=== PATIENT | female | born 1935 | race Caucasian/White ===

== ENCOUNTER → 2017-09-22 09:51 | Outpatient (CLI) | payer MEDICARE, OTHER, SELFPAY ==
--- NOTE | 2017-09-22 09:55 | BI_ITS ---
MAMMOGRAPHY - UNILATERAL DIAGNOSTIC: RIGHT BREAST REASON FOR EXAM: Female, 81 years old. Prior left mastectomy and radiation therapy. Prior right excisional breast biopsy. PERTINENT HISTORY: Personal history of breast cancer. TECHNIQUE: Digital unilateral breast jm (3D mammographic acquisition) in the CC and MLO projections. 2-D mediolateral oblique (MLO) and craniocaudad (CC) views of both breasts were obtained. CAD: Full Field Digital Mammography with Computer Added Detection was performed. COMPARISON: Comparison is made with prior study dated July 23, 2016 and December 27, 2014. FINDINGS: Breast Composition: The breasts are heterogeneously dense, which may obscure small masses. There are no dominant masses or suspicious calcifications. Persistent architectural distortion is seen in the superior retroareolar region of the right breast. This most likely represents an area of prior biopsy. No other significant abnormalities are identified. There has been no significant change since the prior study. BI/UNILAT RT SCRN W/CAD IMPRESSION: Stable unilateral diagnostic mammogram. One year follow-up mammogram recommended. (A) ASSESSMENT CATEGORY: BIRADS Category 2: Benign. A letter regarding these results will be sent to the patient by the facility within 30 days. Approximately 10% of breast cancers are not detected by mammography. A normal mammogram should not delay biopsy of a clinically suspicious abnormality. Electronically Signed: Shai Gonzalez MD at 10:52 EDT Tel [phone], Service support ,
== END ==
PROVIDERS: Family Provider Internal Medicine; PCP Internal Medicine; Visit Provider Internal Medicine Hematology & Oncology
DX: Z12.31 Encounter for screening mammogram for malignant neoplasm of breast (principal); Z85.3 Personal history of malignant neoplasm of breast
CPT/HCPCS: 77061; 77067; G0279

== ENCOUNTER 2017-10-06 08:31 | Inpatient (IN) | payer MEDICARE, OTHER, SELFPAY ==
[2017-10-06 08:32] VITALS: BP 149/68; PULSE 68; RESP 15; TEMP 37.7; O2SAT 94; BMI 35.1
--- NOTE | 2017-10-06 08:42 | NURSING ---
NO LW OR POA
--- NOTE | 2017-10-06 08:55 | ED.DCSUM_ITS ---
- ER Visit Summary Date of Service: 10/06/17 Chief Complaint: Weakness, fatigue and strong smelling urine History of Present Illness: The patient is a 81 F who was brought to the ER by her daughter who is the POA because of weakness, decreased intake, strong smelling urine and elevated temperature. She has had similar presentations in the past and been diagnosed with UTI. She is not a very good informant. Review of systems is remarkable for fever, nausea, constipation generalized weakness and strong smelling urine. Otherwise negative Physical Examination: Blood pressure is slightly elevated 149/68. Temperature is 99.9 which is not normal for a 81-year-old. She is not alert but she is oriented. She has ocular changes consistent with thyroid disease. Pupils equal round reactive. Extra muscles are intact. Conjunctive is not injected and is pink. Sclera is not icteric. Oral mucosa is dry. Nares patent no discharge. Ears normal. Trach is midline and there is no stridor or cervical lymphadenopathy. Heart is regular. There is no murmur, gallop or rub. Lungs are clear to auscultation with fair to good movement of air bilaterally. Abdomen is soft with minimal discomfort in the suprapubic region. There is no CVA tenderness noted. There is no asymmetry, swelling, discoloration, leg vein distention, palpable cords or tenderness along the distribution of the deep venous system. Neuro exam is nonfocal. Test Results: Is normal with 86 segs. Electro panel reveals slight hyponatremia and hypochloremia at 130 597 respectively. Urinalysis is positive for an infection with positive nitrites. Lactate is normal 1.8. Since the lactate is normal blood cultures not indicated. Urine culture was obtained and she will receive 1 g of Rocephin IV piggyback. Emergency Department Course and Treatment: Because patient is unable to stand a urine straight cath was obtained. Concern she has a UTI and has infectious encephalopathy. Infectious workup was undertaken. If lactate is elevated will obtain blood cultures and will start on antibiotics after blood cultures are obtained. Treatment Plan: IV antibiotics admission to the hospital Disposition: Admit to medical surgical floor/unit Impression: 1. UTI 2. Infectious encephalopathy 3. History of type 2 diabetes 4. History of hypertension 5. History of COPD 6. History of hypothyroidism This note was generated with [employer] software. It may contain incorrect words, spelling, and punctuation that were not noted in review of the chart prior to signing ED Disposition - Plan for ED Patient: Chief Complaint: Weakness Referrals: Carin Mckeon DO [Primary Care Provider] -
[2017-10-06] MEDS: 0.9% Normal Saline 1,000 ML 250 ML IV (08:58)
[2017-10-06 09:16] LABS: Mucous, Urine 0 SEEN /hpf (<or=2+)
[2017-10-06 09:36] LABS: Color, Urine Yellow (Yellow); Glucose, Dipstick Normal (Normal); Ketone-Dipstick Negative (Negative); Leukocyte Esterase-Dipstick 100 /ul (Negative); Nitrite-Dipstick Positive (Negative); Occult Blood-Urine 25 /ul (Negative); Protein-Dipstick 30 mg/dl (Negative); Specific Gravity, Urine 1.015 (1.002-1.030); Urine Clarity Cloudy (Clear); Urine Urobilinogen 4 mg/dl (Normal)
[2017-10-06 09:39] LABS: Urine Bilirubin Dipstick 1 mg/dL (Negative)
[2017-10-06 09:40] LABS: Absolute Lymphocyte Count 0.78 X10^3/ul (0.83-4.51); Absolute Neutrophil Count 7.2 X10^3/uL (2.0-7.7); Basophil# 0.01 X10^3/uL; Basophil% 0.1 % (0-1); Eosinophil# 0.01 X10^3/uL; Eosinophils% 0.1 % (0-5); Hematocrit 45.6 % (37-47); Hemoglobin 14.7 g/dl (12.0-15.0); Lymphocyte # 0.78 X10^3/ul (4.0); Lymphocyte % 9.3 % (19-41); Mean Corp Hgb Conc 32.2 g/gl (32-36); Mean Corpuscular Hgb 30.8 pg (27.0-32.0); Mean Corpuscular Volume 95.6 fL (81-99); Mean Platelet Vol. 9.8 fl (6.2-12.0); Monocyte# 0.42 X10^3/uL; Neutrophil # 7.16 X10^3/uL (2.7-7.7); Neutrophil % 85.3 % (47-70); POSITIVE COUNT NO; POSITIVE DIFFERENTIAL NO; POSITIVE MORPHOLOGY NO; Platelet Count 205 K/mm3 (150-450); RBC Distribution Width CV 14.1 % (11.6-14.6); RBC Distribution Width SD 47.7 fl (35.1-43.9); Red Blood Count 4.77 M/mm3 (4.2-5.4); White Blood Count 8.4 K/mm3 (4.4-11.0)
[2017-10-06 09:44] LABS: Bacteria 4+ /hpf (None Seen); Red Blood Cells-Urine 0-5 SEEN /hpf (0-5); Squamous Epithelial Cells - UA 0-5 SEEN /hpf (5-10); White Blood Cells 0-5 SEEN /hpf (0-5)
[2017-10-06 09:54] LABS: Anion Gap 7 (5-15); BUN 16 mg/dL (7-18); BUN/Creat Ratio 17.3 RATIO (10-20); Calcium,Total 9.5 mg/dL (8.5-10.1); Chloride 97 mmol/L (98-107); Creatinine, Serum 0.93 mg/dL (0.55-1.02); EST Glomerular Filtration Rate 62 mL/min (>60); Est Glom Filt Rate - Afr Amer 75 mL/min (>60); Estimated Creatinine Clearance 41.66 ml/min; Glucose 111 mg/dL (74-106); Potassium 3.7 mmol/L (3.5-5.1); Sodium Level 135 mmol/L (136-145)
[2017-10-06 09:58] LABS: Lactic Acid 1.8 mmol/L (0.4-2.0)
--- NOTE | 2017-10-06 10:15 | PCM.HP.STD ---
Problem List (1) Encephalopathy Status: Acute (2) UTI (urinary tract infection) Status: Acute Qualifiers: Urinary tract infection type: site unspecified (3) GERD (gastroesophageal reflux disease) Status: Chronic Qualifiers: Esophagitis presence: esophagitis presence not specified Qualified Code(s): K21.9 - Gastro-esophageal reflux disease without esophagitis (4) Chronic obstructive pulmonary disease (COPD) Status: Chronic Qualifiers: COPD type: unspecified COPD Qualified Code(s): J44.9 - Chronic obstructive pulmonary disease, unspecified (5) Hypothyroidism Status: Chronic Qualifiers: Hypothyroidism type: unspecified Qualified Code(s): E03.9 - Hypothyroidism, unspecified (6) Obesity (BMI 30-39.9) Status: Chronic (7) HLD (hyperlipidemia) Status: Chronic Qualifiers: Hyperlipidemia type: unspecified Qualified Code(s): E78.5 - Hyperlipidemia, unspecified (8) HTN (hypertension) Status: Chronic Qualifiers: Hypertension type: essential hypertension Qualified Code(s): I10 - Essential (primary) hypertension (9) Diabetes mellitus, type II Status: Chronic Qualifiers: Diabetes mellitus superintendent [employer] insulin use: without intermediate use Diabetes mellitus complication status: with unspecified complications Qualified Code(s): E11.8 - Type 2 diabetes mellitus with unspecified complications (10) Anxiety and depression Status: Chronic (11) Elevated liver enzymes Status: Chronic History of Present Illness Date of Admission: 10/06/17 Chief Complaint: Confusion, Lethargy, Possible Dysuria. The patient is a 81 y/o F w/ PMHx: Chronic R ankle pain following w/ Dr. Melchor for injections, Diabetes mellitus type II, Chronic Oropharyngeal Dysphagia, Chronic headaches, GERD, Chronic COPD, HTN, HLD, History of Elevated LFTs in the past with unclear etiology following w/ Dr. Garza (? PAULSON), Anxiety and Depression, Hypothyroidism, Allergic Rhinitis who presents to the [facility] ED on 10/06/17 from home with onset confusion, increased lethargy with possible dysuria, foul smelling urine x 24 hours. Daughter was contacted per her with concerns given her status change. In the ED work-up included T 99.9, heart rate 68, BP 149/68, respiratory rate 15, 94% room air, CBC with WBC 8.4, hemoglobin 14.7, platelets 205 without market shift, BMP with sodium 135, chloride 97, glucose 111, lactic acid 1.8, urinalysis significant for urinary tract infection with pending urine culture per ED. In the ED patient administered NS, rocephin. Prior records review notable for prior Klebsiella UTI resistant to amp and insensitive to NF. Past Medical History Past Medical History (Chronic Problems): Chronic Problems GERD (gastroesophageal reflux disease) (Chronic) Chronic obstructive pulmonary disease (COPD) (Chronic) Hypothyroidism (Chronic) Obesity (BMI 30-39.9) (Chronic) HLD (hyperlipidemia) (Chronic) HTN (hypertension) (Chronic) Diabetes mellitus, type II (Chronic) Anxiety and depression (Chronic) Elevated liver enzymes (Chronic) Allergies hydrocodone bitartrate [From Vicodin] Adverse Reaction (Verified 10/06/17 08:35) Other oxycodone HCl [From Percocet] Adverse Reaction (Verified 10/06/17 08:35) Other Home Medications: Ambulatory Orders Medication Instructions Recorded Amlodipine Besylate 2.5 mg PO QHS 07/10/15 Aspirin E.C. [Ecotrin] 81 mg PO QHS 07/10/15 Atenolol [Tenormin] 100 mg PO QHS 07/10/15 Atorvastatin Calcium [Lipitor] 20 mg PO QHS 07/10/15 Clonidine HCl 0.1 mg PO QHS 07/10/15 Esomeprazole Mag Trihydrate 40 mg PO DAILY 07/10/15 [Nexium] Hydrochlorothiazide [Hctz] 25 mg PO DAILY 07/10/15 Isosorbide DN [Isordil] 5 mg PO TIDCM 07/10/15 Levothyroxine [Synthroid] 112 mcg PO SUMOTUWETHFR 07/10/15 Levothyroxine [Synthroid] 224 mcg PO SA 07/10/15 Mometasone/Formoterol [Dulera 200 2 puff INHALATION BID 07/10/15 Mcg/5 Mcg Inhaler] Montelukast [Singulair] 10 mg PO QHS 07/10/15 Cholecalciferol (Vitamin D3) 4,000 unit PO DAILY 02/15/17 [Vitamin D3] Duloxetine HCl 30 mg PO BID 02/15/17 Fexofenadine HCl [Yelena Allergy] 180 mg PO QHS 02/15/17 Gabapentin [Neurontin] 300 mg PO QHS 02/16/17 Metformin(XR) [Glucophage Xr] 500 mg PO DAILY 06/02/17 Mometasone Furoate [Nasonex] 2 spray NASAL DAILY 10/06/17 Surgical History: - - Total hystectomy, appendectomy, lumbar surgery, left partial knee replacement, left mastectomy with lymph node dissection. Psychiatric History: Anxiety, Depression MAT GAUGER History: No pertinent MAT GAUGER history Lives: Spouse/ Significant Other Smoking Status: Former smoker - Quit many years prior, > 40. Tobacco Use: Non-smoker Alcohol: None Drugs: None - *Family History Maternal History Items: No pertinent history Paternal History Items: Heart Disease Review of Systems Constitutional: Reports: Anorexia, Fever - Low grade, subjective., Malaise, Weakness, Fatigue HEENT: Reports: Difficulty Swallowing. Denies: Head Aches, Sinus Congestion, Sinus Drainage Cardiovascular: Denies: Chest Pain, Palpitations Respiratory: Denies: Cough, Shortness of breath at rest, Sputum production Gastrointestinal: Denies: Abdominal Pain, Nausea, Vomiting Genitourinary: Reports: Dysuria Musculoskeletal: Denies: Joint Pain, Joint Tenderness Skin: Denies: Rash, Wounds Neurological: Reports: Confusion. Denies: Focal weakness, Numbness, Tingling Psychiatric: Reports: Anxiety, Depression. Denies: Homicidal Ideations, Suicidal Ideations Hematologic/ Lymphatic: Denies: Easy Bruising, Easy Bleeding VTE Information - Inpt Only VTE Present on Admission: No VTE Mechan Device Prophylaxis: SCD's VTE Pharm Prophylaxis ordered?: Yes Patient Problems: Active and Suspected Problems Encephalopathy (Acute) UTI (urinary tract infection) (Acute) Subjective: Seated up right in bed, fatigued appearance, orientation 3/4, still not baseline. Objective: Physical Examination: General: awake, alert, oriented to 3/4, decreased from baseline, repeating herself, remains cooperative, seated upright in bed, fatigued appearance. Skin: normal color, turgor, no icterus, cyanosis. HEENT: AT/NC, EOMI, PERRLA, moderately dry MM, no carotid bruits or JVD noted. Lungs: Diminished BS BL bases, moderate effort, no rales, ronchi or wheezing. Heart: Regular rate and rhythm; no gallop, rub audible, s/p L mastectomy. Abdomen: soft, obese, NTTP, ND, normal BS, no HSM. Extremities: no cyanosis, clubbing, or edema. Neurological: patient awake, alert, orientation as noted, decreased from baseline; cognitive function not baseline intact; pupils equally reactive to light and accomodation; cranial nerves II-XII grossly normal, moving all 4 extremities, no focal deficits, strength moderately to severely globally decreased given acute presentation. Psychiatric: affect appears fatigued, mildly flat, no acute evidence of depressive or anxiety feelings. - Physical Exam Vital Signs Temp Pulse Resp BP Pulse Ox 99.9 F H 68 15 149/68 H 94 10/06/17 08:32 10/06/17 08:32 10/06/17 08:32 10/06/17 08:32 10/06/17 08:32 Oxygen Delivery Method Room Air Weight: 204 lb 11.888 oz Body Mass Index (BMI) 35.1 Laboratory Tests Past 24 Hrs 10/06/17 10/06/17 10/06/17 09:10 09:23 09:23 WBC 8.4 RBC 4.77 Hgb 14.7 Hct 45.6 MCV 95.6 MCH 30.8 MCHC 32.2 RDW 14.1 RDW Differential 47.7 H Plt Count 205 MPV 9.8 Immature Gran % (Auto) 0.200 Neut % (Auto) 85.3 H Lymph % (Auto) 9.3 L Galax % (Auto) 5.0 Eos % (Auto) 0.1 Baso % (Auto) 0.1 Absolute Neuts (auto) 7.2 Absolute Lymphs (auto) 0.78 L Total Counted Not Reportable Sodium 135 L Potassium 3.7 Chloride 97 L Carbon Dioxide 31.0 Anion Gap 7 BUN 16 Creatinine 0.93 Estim Creat Clear Calc 41.66 Est GFR (MDRD) Af Amer 75 Est GFR (MDRD) Non-Af 62 BUN/Creatinine Ratio 17.3 Glucose 111 H Lactic Acid Calcium 9.5 Urine Color Yellow Urine Clarity Cloudy Urine pH 6.0 Ur Specific Arma 1.015 Urine Protein 30 H Urine Glucose (UA) Normal Urine Ketones Negative Urine Occult Blood 25 H Urine Nitrite Positive H Urine Bilirubin 1 H Urine Urobilinogen 4 H Ur Leukocyte Esterase 100 H Urine RBC 0-5 SEEN Urine WBC 0-5 SEEN Ur Squamous Epith Cells 0-5 SEEN Urine Bacteria 4+ Urine Mucus 0 SEEN 10/06/17 09:23 WBC RBC Hgb Hct MCV MCH MCHC RDW RDW Differential Plt Count MPV Immature Gran % (Auto) Neut % (Auto) Lymph % (Auto) Galax % (Auto) Eos % (Auto) Baso % (Auto) Absolute Neuts (auto) Absolute Lymphs (auto) Total Counted Sodium Potassium Chloride Carbon Dioxide Anion Gap BUN Creatinine Estim Creat Clear Calc Est GFR (MDRD) Af Amer Est GFR (MDRD) Non-Af BUN/Creatinine Ratio Glucose Lactic Acid 1.8 Calcium Urine Color Urine Clarity Urine pH Ur Specific Arma Urine Protein Urine Glucose (UA) Urine Ketones Urine Occult Blood Urine Nitrite Urine Bilirubin Urine Urobilinogen Ur Leukocyte Esterase Urine RBC Urine WBC Ur Squamous Epith Cells Urine Bacteria Urine Mucus Assessment/Plan Active and Suspected Problems Encephalopathy (Acute) UTI (urinary tract infection) (Acute) The patient is a 81 y/o F w/ PMHx: Chronic R ankle pain following w/ Dr. Melchor for injections, Diabetes mellitus type II, Chronic Oropharyngeal Dysphagia, Chronic headaches, GERD, Chronic COPD, HTN, HLD, History of Elevated LFTs in the past with unclear etiology following w/ Dr. Garza (? PAULSON), Anxiety and Depression, Hypothyroidism, Allergic Rhinitis who presents to the [facility] ED on 10/06/17 from home with onset confusion, increased lethargy with possible dysuria, foul smelling urine x 24 hours. Daughter was contacted per her with concerns given her status change. (1) Acute Encephalopathy secondary to Acute Urinary Tract Infection: Will admit to [facility] upon ED evaluation remarkable, pending UCx, continue IVFs, monitor I/Os, continue IV Rocephin w/ transition as able pending sensitivities and speciation. No Bld cx obtained in the ED. Maintain on fall precautions, HOB, IS, PT, OT, CM consulted for discharge planning. Mag pending. Given ongoing issues, now 3rd UTI over the last 6 months and all requiring hospitalization will plan upon discharge referral to Urology. (2) Hypertension: Continue home regimen including isosorbide, clonidine, hydrochlorothiazide, atenolol, Norvasc w/ hold parameters, PRN hydralazine. (3) Hyperlipidemia: Continue home statin regimen. (4) Chronic COPD: ATC duonebs, PRN albuterol, HOB, IS parameters. (5) Hypothyroidism: Continue home synthroid regimen, TSH pending. (6) Diabetes mellitus type II: Hold oral home regimen, ADA diet, accu checks w/ ISS. (7) Oropharyngeal Dysphagia: Noted history prior, on regular diet consistency currently. (8) Chronic headache: PRN tylenol. (9) Elevated Liver Enzymes, Chronic, ? PAULSON: Chronic elevation, hepatic profile pending, followed previously with Dr. Garza, unclear etiology. (10) GERD: PPI. (11) Anxiety and Depression: continue home regimen duloxetine. (12) DVT Prophylaxis: SCDs, renally dosed lovenox. (13) CODE status: Discussed CODE status concept including difference between FULL code, DNR-CCA and DNR-CC status. Daughter present is HCPOA. Patient notes likely DNR-CCA, no intubation but given presentation with encephalopathy as discussed with daughter will maintain FULL CODE and once clinically improved and orientation at baseline she will discuss status concept with her mother. Advanced Care Planning Face to Face Time: 16 minutes. Code Visit Inpatient E&M: 70746 Init Hosp L3 Procedures: 93208 Advncd Care Plan 30 Min
--- NOTE | 2017-10-06 10:23 | CM.ED ---
CM INITIAL ASSESSMENT: Patient's daughter, Sena Diane, is at bedside to assist with interview questions. Patient asks her daughter to answer questions for her. Home: Patient lives in a one story home, with her Eduardo Bartlett. There are approximately 5 steps to get into the home. Rail present. Patient states when she is feeling well, she does not have any trouble getting into the home. HHS/Aides: Patient had home health services after her mastectomy. Unsure of agency. Patient no longer drives. DME: Uses walker, cane, shower chair. Denies needs at this time. No oxygen/cpap in home. Pharmacy: [facility] in [place]. Advance Directives: Has. Daughter states she is medical power of trust and estates attorney - Sena Diane. I do not see copies in the [facility]. PCP: Carin Mckeon Specialists: Dr. Sparrow, oncology for history of breast cancer. 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 Dr. Melchor, pain management for back pain. Was scheduled for epidural tomorrow. Sena, daughter, has cancelled this appointment. DC Plan: Likely will return to home, with support of family. CM will continue to follow for safe and effective discharge planning.
--- NOTE | 2017-10-06 10:33 | NURSING ---
319 ENCEPHALOPATHY, UTI WHITE
--- NOTE | 2017-10-06 10:34 | HP.PCM_ITS ---
Problem List (1) Encephalopathy Status: Acute (2) UTI (urinary tract infection) Status: Acute Qualifiers: Urinary tract infection type: site unspecified (3) GERD (gastroesophageal reflux disease) Status: Chronic Qualifiers: Esophagitis presence: esophagitis presence not specified Qualified Code(s) : K21.9 - Gastro-esophageal reflux disease without esophagitis (4) Chronic obstructive pulmonary disease (COPD) Status: Chronic Qualifiers: COPD type: unspecified COPD Qualified Code(s): J44.9 - Chronic obstructive pulmonary disease, unspecified (5) Hypothyroidism Status: Chronic Qualifiers: Hypothyroidism type: unspecified Qualified Code(s): E03.9 - Hypothyroidism , unspecified (6) Obesity (BMI 30-39.9) Status: Chronic (7) HLD (hyperlipidemia) Status: Chronic Qualifiers: Hyperlipidemia type: unspecified Qualified Code(s): E78.5 - Hyperlipidemia , unspecified (8) HTN (hypertension) Status: Chronic Qualifiers: Hypertension type: essential hypertension Qualified Code(s): I10 - Essential (primary) hypertension (9) Diabetes mellitus, type II Status: Chronic Qualifiers: Diabetes mellitus alf insulin use: without transportation job titles use Diabetes mellitus complication status: with unspecified complications Qualified Code(s) : E11.8 - Type 2 diabetes mellitus with unspecified complications (10) Anxiety and depression Status: Chronic (11) Elevated liver enzymes Status: Chronic History of Present Illness Date of Admission: 10/06/17 Chief Complaint: Confusion, Lethargy, Possible Dysuria. The patient is a 81 y/o F w/ PMHx: Chronic R ankle pain following w/ Dr. Melchor for injections, Diabetes mellitus type II, Chronic Oropharyngeal Dysphagia, Chronic headaches, GERD, Chronic COPD, HTN, HLD, History of Elevated LFTs in the past with unclear etiology following w/ Dr. Garza (? PAULSON), Anxiety and Depression, Hypothyroidism, Allergic Rhinitis who presents to the [facility] ED on 10/06/17 from home with onset confusion, increased lethargy with possible dysuria, foul smelling urine x 24 hours. Daughter was contacted per her with concerns given her status change. In the ED work-up included T 99.9, heart rate 68, BP 149/68, respiratory rate 15, 94% room air, CBC with WBC 8.4, hemoglobin 14.7, platelets 205 without market shift, BMP with sodium 135, chloride 97, glucose 111, lactic acid 1.8, urinalysis significant for urinary tract infection with pending urine culture per ED. In the ED patient administered NS, rocephin. Prior records review notable for prior Klebsiella UTI resistant to amp and insensitive to NF. Past Medical History Past Medical History (Chronic Problems): Chronic Problems GERD (gastroesophageal reflux disease) (Chronic) Chronic obstructive pulmonary disease (COPD) (Chronic) Hypothyroidism (Chronic) Obesity (BMI 30-39.9) (Chronic) HLD (hyperlipidemia) (Chronic) HTN (hypertension) (Chronic) Diabetes mellitus, type II (Chronic) Anxiety and depression (Chronic) Elevated liver enzymes (Chronic) Allergies hydrocodone bitartrate [From Vicodin] Adverse Reaction (Verified 10/06/17 08:35) Other oxycodone HCl [From Percocet] Adverse Reaction (Verified 10/06/17 08:35) Other Home Medications: Ambulatory Orders Medication Instructions Recorded Amlodipine Besylate 2.5 mg PO QHS 07/10/15 Aspirin E.C. [Ecotrin] 81 mg PO QHS 07/10/15 Atenolol [Tenormin] 100 mg PO QHS 07/10/15 Atorvastatin Calcium [Lipitor] 20 mg PO QHS 07/10/15 Clonidine HCl 0.1 mg PO QHS 07/10/15 Esomeprazole Mag Trihydrate 40 mg PO DAILY 07/10/15 [Nexium] Hydrochlorothiazide [Hctz] 25 mg PO DAILY 07/10/15 Isosorbide DN [Isordil] 5 mg PO TIDCM 07/10/15 Levothyroxine [Synthroid] 112 mcg PO SUMOTUWETHFR 07/10/15 Levothyroxine [Synthroid] 224 mcg PO SA 07/10/15 Mometasone/Formoterol [Dulera 200 2 puff INHALATION BID 07/10/15 Mcg/5 Mcg Inhaler] Montelukast [Singulair] 10 mg PO QHS 07/10/15 Cholecalciferol (Vitamin D3) 4,000 unit PO DAILY 02/15/17 [Vitamin D3] Duloxetine HCl 30 mg PO BID 02/15/17 Fexofenadine HCl [Yelena Allergy] 180 mg PO QHS 02/15/17 Gabapentin [Neurontin] 300 mg PO QHS 02/16/17 Metformin(XR) [Glucophage Xr] 500 mg PO DAILY 06/02/17 Mometasone Furoate [Nasonex] 2 spray NASAL DAILY 10/06/17 Surgical History: - - Total hystectomy, appendectomy, lumbar surgery, left partial knee replacement, left mastectomy with lymph node dissection. 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 Tobacco Use: Non-smoker Alcohol: None Drugs: None - *Family History Maternal History Items: No pertinent history Paternal History Items: Heart Disease Review of Systems Constitutional: Reports: Anorexia, Fever - Low grade, subjective., Malaise, Weakness, Fatigue HEENT: Reports: Difficulty Swallowing. Denies: Head Aches, Sinus Congestion, Sinus Drainage Cardiovascular: Denies: Chest Pain, Palpitations Respiratory: Denies: Cough, Shortness of breath at rest, Sputum production Gastrointestinal: Denies: Abdominal Pain, Nausea, Vomiting Genitourinary: Reports: Dysuria Musculoskeletal: Denies: Joint Pain, Joint Tenderness Skin: Denies: Rash, Wounds Neurological: Reports: Confusion. Denies: Focal weakness, Numbness, Tingling Psychiatric: Reports: Anxiety, Depression. Denies: Homicidal Ideations, Suicidal Ideations Hematologic/ Lymphatic: Denies: Easy Bruising, Easy Bleeding VTE Information - Inpt Only VTE Present on Admission: No VTE Mechan Device Prophylaxis: SCD's VTE Pharm Prophylaxis ordered?: Yes Patient Problems: Active and Suspected Problems Encephalopathy (Acute) UTI (urinary tract infection) (Acute) Subjective: Seated up right in bed, fatigued appearance, orientation 3/4, still not baseline. Objective: Physical Examination: General: awake, alert, oriented to 3/4, decreased from baseline, repeating herself, remains cooperative, seated upright in bed, fatigued appearance. Skin: normal color, turgor, no icterus, cyanosis. HEENT: AT/NC, EOMI, PERRLA, moderately dry MM, no carotid bruits or JVD noted. Lungs: Diminished BS BL bases, moderate effort, no rales, ronchi or wheezing. Heart: Regular rate and rhythm; no gallop, rub audible, s/p L mastectomy. Abdomen: soft, obese, NTTP, ND, normal BS, no HSM. Extremities: no cyanosis, clubbing, or edema. Neurological: patient awake, alert, orientation as noted, decreased from baseline; cognitive function not baseline intact; pupils equally reactive to light and accomodation; cranial nerves II-XII grossly normal, moving all 4 extremities, no focal deficits, strength moderately to severely globally decreased given acute presentation. Psychiatric: affect appears fatigued, mildly flat, no acute evidence of depressive or anxiety feelings. - Physical Exam Vital Signs Temp Pulse Resp BP Pulse Ox 99.9 F H 68 15 149/68 H 94 10/06/17 08:32 10/06/17 08:32 10/06/17 08:32 10/06/17 08:32 10/06/17 08:32 Oxygen Delivery Method Room Air Weight: 204 lb 11.888 oz Body Mass Index (BMI) 35.1 Laboratory Tests Past 24 Hrs 10/06/17 10/06/17 10/06/17 09:10 09:23 09:23 WBC 8.4 RBC 4.77 Hgb 14.7 Hct 45.6 MCV 95.6 MCH 30.8 MCHC 32.2 RDW 14.1 RDW Differential 47.7 H Plt Count 205 MPV 9.8 Immature Gran % (Auto) 0.200 Neut % (Auto) 85.3 H Lymph % (Auto) 9.3 L [place] % (Auto) 5.0 Eos % (Auto) 0.1 Baso % (Auto) 0.1 Absolute Neuts (auto) 7.2 Absolute Lymphs (auto) 0.78 L Total Counted Not Reportable Sodium 135 L Potassium 3.7 Chloride 97 L Carbon Dioxide 31.0 Anion Gap 7 BUN 16 Creatinine 0.93 Estim Creat Clear Calc 41.66 Est GFR (MDRD) Af Amer 75 Est GFR (MDRD) Non-Af 62 BUN/Creatinine Ratio 17.3 Glucose 111 H Lactic Acid Calcium 9.5 Urine Color Yellow Urine Clarity Cloudy Urine pH 6.0 Ur Specific Telephone 1.015 Urine Protein 30 H Urine Glucose (UA) Normal Urine Ketones Negative Urine Occult Blood 25 H Urine Nitrite Positive H Urine Bilirubin 1 H Urine Urobilinogen 4 H Ur Leukocyte Esterase 100 H Urine RBC 0-5 SEEN Urine WBC 0-5 SEEN Ur Squamous Epith Cells 0-5 SEEN Urine Bacteria 4+ Urine Mucus 0 SEEN 10/06/17 09:23 WBC RBC Hgb Hct MCV MCH MCHC RDW RDW Differential Plt Count MPV Immature Gran % (Auto) Neut % (Auto) Lymph % (Auto) [place] % (Auto) Eos % (Auto) Baso % (Auto) Absolute Neuts (auto) Absolute Lymphs (auto) Total Counted Sodium Potassium Chloride Carbon Dioxide Anion Gap BUN Creatinine Estim Creat Clear Calc Est GFR (MDRD) Af Amer Est GFR (MDRD) Non-Af BUN/Creatinine Ratio Glucose Lactic Acid 1.8 Calcium Urine Color Urine Clarity Urine pH Ur Specific Telephone Urine Protein Urine Glucose (UA) Urine Ketones Urine Occult Blood Urine Nitrite Urine Bilirubin Urine Urobilinogen Ur Leukocyte Esterase Urine RBC Urine WBC Ur Squamous Epith Cells Urine Bacteria Urine Mucus Assessment/Plan Active and Suspected Problems Encephalopathy (Acute) UTI (urinary tract infection) (Acute) The patient is a 81 y/o F w/ PMHx: Chronic R ankle pain following w/ Dr. Melchor for injections, Diabetes mellitus type II, Chronic Oropharyngeal Dysphagia, Chronic headaches, GERD, Chronic COPD, HTN, HLD, History of Elevated LFTs in the past with unclear etiology following w/ Dr. Garza (? PAULSON), Anxiety and Depression, Hypothyroidism, Allergic Rhinitis who presents to the [facility] ED on 10/06/17 from home with onset confusion, increased lethargy with possible dysuria, foul smelling urine x 24 hours. Daughter was contacted per her with concerns given her status change. (1) Acute Encephalopathy secondary to Acute Urinary Tract Infection: Will admit to [facility] upon ED evaluation remarkable, pending UCx, continue IVFs, monitor I/ Os, continue IV Rocephin w/ transition as able pending sensitivities and speciation. No Bld cx obtained in the ED. Maintain on fall precautions, HOB, IS , PT, OT, CM consulted for discharge planning. Mag pending. Given ongoing issues , now 3rd UTI over the last 6 months and all requiring hospitalization will plan upon discharge referral to Urology. (2) Hypertension: Continue home regimen including isosorbide, clonidine, hydrochlorothiazide, atenolol, Norvasc w/ hold parameters, PRN hydralazine. (3) Hyperlipidemia: Continue home statin regimen. (4) Chronic COPD: ATC duonebs, PRN albuterol, HOB, IS parameters. (5) Hypothyroidism: Continue home synthroid regimen, TSH pending. (6) Diabetes mellitus type II: Hold oral home regimen, ADA diet, accu checks w/ ISS. (7) Oropharyngeal Dysphagia: Noted history prior, on regular diet consistency currently. (8) Chronic headache: PRN tylenol. (9) Elevated Liver Enzymes, Chronic, ? PAULSON: Chronic elevation, hepatic profile pending, followed previously with Dr. Garza, unclear etiology. (10) GERD: PPI. (11) Anxiety and Depression: continue home regimen duloxetine. (12) DVT Prophylaxis: SCDs, renally dosed lovenox. (13) CODE status: Discussed CODE status concept including difference between FULL code, DNR-CCA and DNR-CC status. Daughter present is HCPOA. Patient notes likely DNR-CCA, no intubation but given presentation with encephalopathy as discussed with daughter will maintain FULL CODE and once clinically improved and orientation at baseline she will discuss status concept with her mother. Advanced Care Planning Face to Face Time: 16 minutes. Code Visit Inpatient E&M: 56425 Init Hosp L3 Procedures: 84288 Advncd Care Plan 30 Min
[2017-10-06 10:40] VITALS: BP 135/46; PULSE 68; PULSE 70; RESP 15; TEMP 36.9; O2SAT 95; O2SAT 96
[2017-10-06 11:25] VITALS: BP 142/41; PULSE 68; RESP 16; TEMP 37.3; O2SAT 97
[2017-10-06 11:46] VITALS: BMI 35.0
[2017-10-06 11:53] VITALS: BMI 35.0
[2017-10-06 12:25] LABS: Bedside Glucose 122 mg/dL (70-110)
[2017-10-06 13:10] LABS: AST(SGOT) 91 U/L (15-37); Alanine Aminotransfer ALT/SGPT 102 U/L (13-56); Albumin, Serum 3.5 g/dL (3.2-5.0); Alkaline Phosphatase 206 U/L (45-117); Bilirubin, Direct 0.31 mg/dL (0.00-0.30); Globulin 4.5 g/dL (2.2-4.2); Magnesium 1.5 mg/dL (1.6-2.6); T4 Free Direct 1.29 ng/dL (0.76-1.46); Thyroid Stim Hormone (TSH) 2.99 uIU/mL (0.358-3.74)
[2017-10-06 13:35] VITALS: BP 110/62; PULSE 74; RESP 16; TEMP 37.9; O2SAT 94
[2017-10-06] MEDS: Acetaminophen 325 MG Tablet 650 MG PO ×2 (13:38→19:49)
[2017-10-06] MEDS: Isosorbide DN 10 MG Tablet 5 MG PO ×2 (13:38→16:10)
[2017-10-06 16:16] LABS: Bedside Glucose 168 mg/dL (70-110)
[2017-10-06 19:27] VITALS: PULSE 77; RESP 16
[2017-10-06] MEDS: Ipratropium/Albuterol Sulfate 3 ML AMPUL.NEB INHALATION (19:27)
[2017-10-06 19:36] VITALS: BP 148/66; PULSE 72; RESP 18; TEMP 36.6; O2SAT 96
[2017-10-06] MEDS: 0.9% Normal Saline 1,000 ML 125 ML IV (19:50)
[2017-10-06] MEDS: Loratadine 10 MG Tablet PO (21:10)
[2017-10-06] MEDS: amLODIPine 2.5 MG Tablet PO (21:10)
[2017-10-06] MEDS: Gabapentin 300 MG Capsule PO (21:10)
[2017-10-06] MEDS: cloNIDine HCl 0.1 MG Tablet PO (21:10)
[2017-10-06] MEDS: Montelukast 10 MG Tablet PO (21:10)
[2017-10-06] MEDS: Atorvastatin Calcium 20 MG Tablet PO (21:10)
[2017-10-06] MEDS: DULoxetine Hcl 30 MG Capsule PO (21:10)
[2017-10-06] MEDS: Aspirin E.C. 81 MG Tablet PO (21:10)
[2017-10-06] MEDS: Atenolol 100 MG Tablet PO (21:10)
[2017-10-06 21:16] LABS: Bedside Glucose 127 mg/dL (70-110)
[2017-10-07] VITALS (7 sets, daily range): BP systolic 106–158; BP diastolic 44–59; PULSE 56–64; RESP 14–18; TEMP 36.3–36.7; O2SAT 94–98
[2017-10-07] MEDS: Ibuprofen 400 MG Tablet PO ×2 (01:28→11:20)
[2017-10-07] MEDS: 0.9% Normal Saline 1,000 ML 125 ML IV ×3 (06:52→23:14)
[2017-10-07] MEDS: Levothyroxine 112 MCG Tablet PO (06:52)
[2017-10-07 07:01] LABS: Absolute Lymphocyte Count 0.66 X10^3/ul (0.83-4.51); Absolute Neutrophil Count 2.7 X10^3/uL (2.0-7.7); Basophil# 0.01 X10^3/uL; Basophil% 0.3 % (0-1); Eosinophil# 0.05 X10^3/uL; Eosinophils% 1.3 % (0-5); Hematocrit 39.3 % (37-47); Hemoglobin 12.5 g/dl (12.0-15.0); Lymphocyte # 0.66 X10^3/ul (4.0); Lymphocyte % 17.4 % (19-41); Mean Corp Hgb Conc 31.8 g/gl (32-36); Mean Corpuscular Hgb 30.5 pg (27.0-32.0); Mean Corpuscular Volume 95.9 fL (81-99); Mean Platelet Vol. 9.8 fl (6.2-12.0); Monocyte# 0.36 X10^3/uL; Monocyte% 9.5 % (0-10); Neutrophil # 2.71 X10^3/uL (2.7-7.7); Neutrophil % 71.2 % (47-70); Platelet Count 185 K/mm3 (150-450); RBC Distribution Width SD 47.2 fl (35.1-43.9); White Blood Count 3.8 K/mm3 (4.4-11.0)
[2017-10-07 07:15] LABS: POSITIVE COUNT NO; POSITIVE DIFFERENTIAL NO; POSITIVE MORPHOLOGY NO
[2017-10-07 07:27] LABS: Anion Gap 7 (5-15); BUN 13 mg/dL (7-18); Calcium,Total 8.7 mg/dL (8.5-10.1); Chloride 110 mmol/L (98-107); Creatinine, Serum 0.65 mg/dL (0.55-1.02); EST Glomerular Filtration Rate 93 mL/min (>60); Est Glom Filt Rate - Afr Amer 112 mL/min (>60); Estimated Creatinine Clearance 38.75 ml/min; Glucose 120 mg/dL (74-106); Magnesium 2.2 mg/dL (1.6-2.6); Potassium 3.5 mmol/L (3.5-5.1); Sodium Level 145 mmol/L (136-145)
[2017-10-07] MEDS: Isosorbide DN 10 MG Tablet 5 MG PO ×3 (07:51→16:45)
[2017-10-07] MEDS: DULoxetine Hcl 30 MG Capsule PO ×2 (09:36→22:08)
[2017-10-07] MEDS: hydroCHLOROthiazide 25 MG Tablet PO (09:37)
[2017-10-07] MEDS: Enoxaparin 30 MG/0.3 ML Syringe SC (09:37)
[2017-10-07] MEDS: Pantoprazole Sodium 40 MG Tablet PO (09:38)
[2017-10-07] MEDS: Fluticasone 0.05% 1 SPRAY NASAL.SRY 2 SPRAY NASAL (09:41)
[2017-10-07 09:45] LABS: Bedside Glucose 118 mg/dL (70-110)
--- NOTE | 2017-10-07 10:06 | PCM.PN.HOSP ---
Patient Problems: Active and Suspected Problems Encephalopathy (Acute) UTI (urinary tract infection) (Acute) Subjective: Patient with no acute events overnight per self and per nursing report. She is much more alert and oriented this morning, seated upright in bedside chair. She notes having much more energy and feels more herself. She notes tolerating breakfast without any nausea or emesis. She is complaining of some mild right upper quadrant tenderness which can happen with her elevated liver enzymes which occur transiently, primarily when she has been admitted for UTI w/ sepsis. Patient denies fevers, chills, nausea, emesis, chest pain or dyspnea. Objective: Physical Examination: General: awake, alert, oriented x 3 this AM, notably improved, remains cooperative, seated upright in the bedside chair, in no apparent distress. Skin: normal color, turgor, no icterus, cyanosis. HEENT: AT/NC, EOMI, PERRLA, improved MMM. Lungs: CTA bilaterally, moderate effort, mild decrease BL bases, no rales, ronchi or wheezing. Heart: Regular rate and rhythm; no gallop, rub audible. Abdomen: soft, obese, mild RUQ T/epigastric, very minimal, no rebound or guarding, intermittent chronci issue, ND, normal BS,. Extremities: no cyanosis, clubbing, or edema. Neurological: patient awake, alert, oriented x 3 as noted; cognitive function improved, appears near baseline intact; pupils equally reactive to light and accomodation; cranial nerves II-XII grossly normal, moving all 4 extremities, no focal deficits, strength improved, mildly to moderately globally decreased. Psychiatric: affect appears normal, no acute evidence of depressive or anxiety feelings. Vitals/I&O's: Vital Signs Temp Pulse Resp BP Pulse Ox 98.0 F 59 L 14 106/44 L 94 10/07/17 08:17 10/07/17 08:17 10/07/17 09:02 10/07/17 08:17 10/07/17 09:02 Oxygen Delivery Method Room Air Weight: 204 lb 2.369 oz Body Mass Index (BMI) 35.0 Intake and Output for Last 24 Hours 10/05/17 10/06/17 10/07/17 23:59 23:59 23:59 Intake Total 1898 / 1898 1064 / 1064 Output Total 550 / 550 Balance 1898 / 1898 514 / 514 Laboratory Results 10/06/17 12:23: POC Glucose 122 H 10/06/17 16:13: POC Glucose 168 H 10/06/17 21:05: POC Glucose 127 H 10/07/17 06:10: Sodium 145, Potassium 3.5, Chloride 110 H, Carbon Dioxide 28.0, Anion Gap 7, BUN 13, Creatinine 0.65, Estim Creat Clear Calc 38.75, Est GFR (MDRD) Af Amer 112, Est GFR (MDRD) Non-Af 93, BUN/Creatinine Ratio 20.0, Glucose 120 H, Calcium 8.7, Magnesium 2.2 10/07/17 06:10: WBC 3.8 L, RBC 4.10 L, Hgb 12.5, Hct 39.3, MCV 95.9, MCH 30.5, MCHC 31.8 L, RDW 14.0, RDW Differential 47.2 H, Plt Count 185, MPV 9.8, Immature Gran % (Auto) 0.300, Neut % (Auto) 71.2 H, Lymph % (Auto) 17.4 L, [place] % (Auto) 9.5, Eos % (Auto) 1.3, Baso % (Auto) 0.3, Absolute Neuts (auto) 2.7, Absolute Lymphs (auto) 0.66 L, Total Counted Not Reportable 10/07/17 06:35: POC Glucose 118 H Current Medications Acetaminophen (Tylenol) 650 mg PO Q6H PRN PRN PRN Reason: Mild Pain (scale 0-3)/T>100.7 Last Admin: 10/06/17 19:49 Dose: 650 mg Al Hydroxide/Mg Hydroxide (Mylanta Ii) 30 ml PO Q6H PRN PRN PRN Reason: Gastric burning Albuterol Sulfate (Ventolin Aerosols) 2.5 mg INHALATION Q2H PRN PRN PRN Reason: dyspnea, wheezing Albuterol/Ipratropium (Duoneb) 3 ml INHALATION Q6HWA.RT [facility] Last Admin: 10/07/17 08:00 Dose: Not Given Amlodipine Besylate (Norvasc) 2.5 mg PO QHS [facility] Last Admin: 10/06/17 21:10 Dose: 2.5 mg Aspirin (Ecotrin) 81 mg PO QHS [facility] Last Admin: 10/06/17 21:10 Dose: 81 mg Atenolol (Tenormin (Beta Gudelia)) 100 mg PO QHS [facility] Last Admin: 10/06/17 21:10 Dose: 100 mg Atorvastatin Calcium (Lipitor) 20 mg PO QHS [facility] Last Admin: 10/06/17 21:10 Dose: 20 mg Clonidine (Catapres) 0.1 mg PO QHS [facility] Last Admin: 10/06/17 21:10 Dose: 0.1 mg Dextrose (D50w Syringe) 0 gm IV X1 PRN; Protocol PRN Reason: Hypoglycemia Duloxetine HCl (Cymbalta) 30 mg PO BID [facility] Last Admin: 10/07/17 09:36 Dose: 30 mg Enoxaparin Sodium (Lovenox) 30 mg SC DAILY@1000 [facility] Last Admin: 10/07/17 09:37 Dose: 30 mg Fluticasone Propionate (Flonase Nasal [place]) 2 spray NASAL DAILY [facility] Last Admin: 10/07/17 09:41 Dose: 2 spray Gabapentin (Neurontin) 300 mg PO QHS [facility] Last Admin: 10/06/17 21:10 Dose: 300 mg Glucagon () 1 mg IM .X1 PRN PRN Reason: Hypoglycemia Hydralazine HCl (Apresoline Iv) 10 mg IV Q4H PRN PRN PRN Reason: SBP > 160 Hydrochlorothiazide (Hctz) 25 mg PO DAILY [facility] Last Admin: 10/07/17 09:37 Dose: 25 mg Sodium Chloride () 1,000 mls @ 125 mls/hr IV .Q8H [facility] Last Admin: 10/07/17 06:52 Dose: 125 mls/hr Ceftriaxone Sodium (Rocephin) 1 gm in 50 mls @ 100 mls/hr IV Q24H [facility] Ibuprofen (Motrin) 400 mg PO Q6H PRN PRN PRN Reason: MILD PAIN (1-3/10) Last Admin: 10/07/17 01:28 Dose: 400 mg Insulin Aspart (Novolog Flexpen (Bkc)) 0 units SC ACHS [facility] PRN Reason: Protocol Last Admin: 10/07/17 06:54 Dose: Not Given Isosorbide Dinitrate (Isordil) 5 mg PO TIDCM [facility] Last Admin: 10/07/17 07:51 Dose: 5 mg Levothyroxine Sodium (Synthroid) 112 mcg PO SuMoTuWeThFr@0600 [facility] Last Admin: 10/07/17 06:52 Dose: 112 mcg Levothyroxine Sodium (Synthroid) 224 mcg PO Sa@0600 [facility] Loratadine (Claritin) 10 mg PO QHS [facility] Last Admin: 10/06/17 21:10 Dose: 10 mg Magnesium Hydroxide (Milk Of Magnesia) 30 ml PO DAILY PRN PRN PRN Reason: Constipation Montelukast Sodium (Singulair) 10 mg PO QHS [facility] Last Admin: 10/06/17 21:10 Dose: 10 mg Ondansetron HCl (Zofran) 4 mg IV Q8H PRN PRN PRN Reason: NAUSEA Pantoprazole Sodium (Protonix) 40 mg PO DAILY [facility] Last Admin: 10/07/17 09:38 Dose: 40 mg Promethazine HCl (Phenergan) 12.5 mg IV Q6H PRN PRN PRN Reason: NAUSEA/VOMITING Sodium Chloride () 5 - 30 ml IV UD PRN PRN Reason: SALINE FLUSH Medical Necessity - Tobacco Use Smoking Status: Former smoker - Quit many years prior, > 41. Tobacco Use: Non-smoker Assessment/Plan Active and Suspected Problems Encephalopathy (Acute) UTI (urinary tract infection) (Acute) The patient is a 81 y/o F w/ PMHx: Chronic R ankle pain following w/ Dr. Melchor for injections, Diabetes mellitus type II, Chronic Oropharyngeal Dysphagia, Chronic headaches, GERD, Chronic COPD, HTN, HLD, History of Elevated LFTs in the past with unclear etiology following w/ Dr. Garza (? PAULSON), Anxiety and Depression, Hypothyroidism, Allergic Rhinitis who presents to the [facility] ED on 10/06/17 from home with onset confusion, increased lethargy with possible dysuria, foul smelling urine x 24 hours. Daughter was contacted per her with concerns given her status change. (1) Acute Encephalopathy secondary to Acute Urinary Tract Infection: Admitted to [facility] upon ED evaluation remarkable, pending UCx, continue IVFs, monitor I/Os, continue IV Rocephin w/ transition as able pending sensitivities and speciation. No Bld cx obtained in the ED. Maintain on fall precautions, HOB, IS, PT, OT, CM consulted for discharge planning but given improvement expect discharge to home. Mag 1.5, IV supplementation administered, repeat 2.2. Given ongoing issues, now 3rd UTI over the last 6 months and all requiring hospitalization will plan upon discharge referral to Urology. (2) Hypertension: Continue home regimen including isosorbide, clonidine, hydrochlorothiazide, atenolol, Norvasc w/ hold parameters, PRN hydralazine. (3) Hyperlipidemia: Continue home statin regimen. (4) Chronic COPD: ATC duonebs, PRN albuterol, HOB, IS parameters. (5) Hypothyroidism: Continue home synthroid regimen, TSH normal. (6) Diabetes mellitus type II: Hold oral home regimen, ADA diet, accu checks w/ ISS. (7) Oropharyngeal Dysphagia: Noted history prior, on regular diet consistency currently. (8) Chronic headache: PRN tylenol. (9) Elevated Liver Enzymes, Chronic, ? PAULSON: Chronic elevation, hepatic profile 10/06/17 T Bili 1.20, D Bili 0.31, AST/ALT 91/102, Alk phos 206, continue to hydrate, repeat CMP in AM, followed previously with Dr. Garza. (10) GERD: PPI. (11) Anxiety and Depression: continue home regimen duloxetine. (12) IBS: Restart home PRN loperamide. (13) DVT Prophylaxis: SCDs, renally dosed lovenox. (14) CODE status: FULL. Encourage re-discussions with daughterDASHA upon discharge. Code Visit Inpatient E&M: 99856 Subs Hosp L2
[2017-10-07] MEDS: Ceftriaxone 1 GM/50 ML BAG IV (10:15)
--- NOTE | 2017-10-07 10:15 | PN_ITS ---
Patient Problems: Active and Suspected Problems Encephalopathy (Acute) UTI (urinary tract infection) (Acute) Subjective: Patient with no acute events overnight per self and per nursing report. She is much more alert and oriented this morning, seated upright in bedside chair. She notes having much more energy and feels more herself. She notes tolerating breakfast without any nausea or emesis. She is complaining of some mild right upper quadrant tenderness which can happen with her elevated liver enzymes which occur transiently, primarily when she has been admitted for UTI w/ sepsis. Patient denies fevers, chills, nausea, emesis, chest pain or dyspnea. Objective: Physical Examination: General: awake, alert, oriented x 3 this AM, notably improved, remains cooperative, seated upright in the bedside chair, in no apparent distress. Skin: normal color, turgor, no icterus, cyanosis. HEENT: AT/NC, EOMI, PERRLA, improved MMM. Lungs: CTA bilaterally, moderate effort, mild decrease BL bases, no rales, ronchi or wheezing. Heart: Regular rate and rhythm; no gallop, rub audible. Abdomen: soft, obese, mild RUQ T/epigastric, very minimal, no rebound or guarding, intermittent chronci issue, ND, normal BS,. Extremities: no cyanosis, clubbing, or edema. Neurological: patient awake, alert, oriented x 3 as noted; cognitive function improved, appears near baseline intact; pupils equally reactive to light and accomodation; cranial nerves II-XII grossly normal, moving all 4 extremities, no focal deficits, strength improved, mildly to moderately globally decreased. Psychiatric: affect appears normal, no acute evidence of depressive or anxiety feelings. Vitals/I&O's: Vital Signs Temp Pulse Resp BP Pulse Ox 98.0 F 59 L 14 106/44 L 94 10/07/17 08:17 10/07/17 08:17 10/07/17 09:02 10/07/17 08:17 10/07/17 09:02 Oxygen Delivery Method Room Air Weight: 204 lb 2.369 oz Body Mass Index (BMI) 35.0 Intake and Output for Last 24 Hours 10/05/17 10/06/17 10/07/17 23:59 23:59 23:59 Intake Total 1898 / 1898 1064 / 1064 Output Total 550 / 550 Balance 1898 / 1898 514 / 514 Laboratory Results 10/06/17 12:23: POC Glucose 122 H 10/06/17 16:13: POC Glucose 168 H 10/06/17 21:05: POC Glucose 127 H 10/07/17 06:10: Sodium 145, Potassium 3.5, Chloride 110 H, Carbon Dioxide 28.0, Anion Gap 7, BUN 13, Creatinine 0.65, Estim Creat Clear Calc 38.75, Est GFR ( MDRD) Af Amer 112, Est GFR (MDRD) Non-Af 93, BUN/Creatinine Ratio 20.0, Glucose 120 H, Calcium 8.7, Magnesium 2.2 10/07/17 06:10: WBC 3.8 L, RBC 4.10 L, Hgb 12.5, Hct 39.3, MCV 95.9, MCH 30.5, MCHC 31.8 L, RDW 14.0, RDW Differential 47.2 H, Plt Count 185, MPV 9.8, Immature Gran % (Auto) 0.300, Neut % (Auto) 71.2 H, Lymph % (Auto) 17.4 L, [place] % (Auto) 9.5, Eos % (Auto) 1.3, Baso % (Auto) 0.3, Absolute Neuts (auto) 2.7, Absolute Lymphs (auto) 0.66 L, Total Counted Not Reportable 10/07/17 06:35: POC Glucose 118 H Current Medications Acetaminophen (Tylenol) 650 mg PO Q6H PRN PRN PRN Reason: Mild Pain (scale 0-3)/T>100.7 Last Admin: 10/06/17 19:49 Dose: 650 mg Al Hydroxide/Mg Hydroxide (Mylanta Ii) 30 ml PO Q6H PRN PRN PRN Reason: Gastric burning Albuterol Sulfate (Ventolin Aerosols) 2.5 mg INHALATION Q2H PRN PRN PRN Reason: dyspnea, wheezing Albuterol/Ipratropium (Duoneb) 3 ml INHALATION Q6HWA.RT [facility] Last Admin: 10/07/17 08:00 Dose: Not Given Amlodipine Besylate (Norvasc) 2.5 mg PO QHS [facility] Last Admin: 10/06/17 21:10 Dose: 2.5 mg Aspirin (Ecotrin) 81 mg PO QHS [facility] Last Admin: 10/06/17 21:10 Dose: 81 mg Atenolol (Tenormin (Beta Gudelia)) 100 mg PO QHS [facility] Last Admin: 10/06/17 21:10 Dose: 100 mg Atorvastatin Calcium (Lipitor) 20 mg PO QHS [facility] Last Admin: 10/06/17 21:10 Dose: 20 mg Clonidine (Catapres) 0.1 mg PO QHS [facility] Last Admin: 10/06/17 21:10 Dose: 0.1 mg Dextrose (D50w Syringe) 0 gm IV X1 PRN; Protocol PRN Reason: Hypoglycemia Duloxetine HCl (Cymbalta) 30 mg PO BID [facility] Last Admin: 10/07/17 09:36 Dose: 30 mg Enoxaparin Sodium (Lovenox) 30 mg SC DAILY@1000 [facility] Last Admin: 10/07/17 09:37 Dose: 30 mg Fluticasone Propionate (Flonase Nasal [place]) 2 spray NASAL DAILY [facility] Last Admin: 10/07/17 09:41 Dose: 2 spray Gabapentin (Neurontin) 300 mg PO QHS [facility] Last Admin: 10/06/17 21:10 Dose: 300 mg Glucagon () 1 mg IM .X1 PRN PRN Reason: Hypoglycemia Hydralazine HCl (Apresoline Iv) 10 mg IV Q4H PRN PRN PRN Reason: SBP > 160 Hydrochlorothiazide (Hctz) 25 mg PO DAILY [facility] Last Admin: 10/07/17 09:37 Dose: 25 mg Sodium Chloride () 1,000 mls @ 125 mls/hr IV .Q8H [facility] Last Admin: 10/07/17 06:52 Dose: 125 mls/hr Ceftriaxone Sodium (Rocephin) 1 gm in 50 mls @ 100 mls/hr IV Q24H [facility] Ibuprofen (Motrin) 400 mg PO Q6H PRN PRN PRN Reason: MILD PAIN (1-3/10) Last Admin: 10/07/17 01:28 Dose: 400 mg Insulin Aspart (Novolog Flexpen (Bkc)) 0 units SC ACHS [facility] PRN Reason: Protocol Last Admin: 10/07/17 06:54 Dose: Not Given Isosorbide Dinitrate (Isordil) 5 mg PO TIDCM [facility] Last Admin: 10/07/17 07:51 Dose: 5 mg Levothyroxine Sodium (Synthroid) 112 mcg PO SuMoTuWeThFr@0600 [facility] Last Admin: 10/07/17 06:52 Dose: 112 mcg Levothyroxine Sodium (Synthroid) 224 mcg PO Sa@0600 [facility] Loratadine (Claritin) 10 mg PO QHS [facility] Last Admin: 10/06/17 21:10 Dose: 10 mg Magnesium Hydroxide (Milk Of Magnesia) 30 ml PO DAILY PRN PRN PRN Reason: Constipation Montelukast Sodium (Singulair) 10 mg PO QHS [facility] Last Admin: 10/06/17 21:10 Dose: 10 mg Ondansetron HCl (Zofran) 4 mg IV Q8H PRN PRN PRN Reason: NAUSEA Pantoprazole Sodium (Protonix) 40 mg PO DAILY [facility] Last Admin: 10/07/17 09:38 Dose: 40 mg Promethazine HCl (Phenergan) 12.5 mg IV Q6H PRN PRN PRN Reason: NAUSEA/VOMITING Sodium Chloride () 5 - 30 ml IV UD PRN PRN Reason: SALINE FLUSH Medical Necessity - Tobacco Use Smoking Status: Former smoker - Quit many years prior, > 40. Tobacco Use: Non-smoker Assessment/Plan Active and Suspected Problems Encephalopathy (Acute) UTI (urinary tract infection) (Acute) The patient is a 81 y/o F w/ PMHx: Chronic R ankle pain following w/ Dr. Melchor for injections, Diabetes mellitus type II, Chronic Oropharyngeal Dysphagia, Chronic headaches, GERD, Chronic COPD, HTN, HLD, History of Elevated LFTs in the past with unclear etiology following w/ Dr. Garza (? PAULSON), Anxiety and Depression, Hypothyroidism, Allergic Rhinitis who presents to the [facility] ED on 10/06/17 from home with onset confusion, increased lethargy with possible dysuria, foul smelling urine x 24 hours. Daughter was contacted per her with concerns given her status change. (1) Acute Encephalopathy secondary to Acute Urinary Tract Infection: Admitted to [facility] upon ED evaluation remarkable, pending UCx, continue IVFs, monitor I/ Os, continue IV Rocephin w/ transition as able pending sensitivities and speciation. No Bld cx obtained in the ED. Maintain on fall precautions, HOB, IS , PT, OT, CM consulted for discharge planning but given improvement expect discharge to home. Mag 1.5, IV supplementation administered, repeat 2.2. Given ongoing issues, now 3rd UTI over the last 6 months and all requiring hospitalization will plan upon discharge referral to Urology. (2) Hypertension: Continue home regimen including isosorbide, clonidine, hydrochlorothiazide, atenolol, Norvasc w/ hold parameters, PRN hydralazine. (3) Hyperlipidemia: Continue home statin regimen. (4) Chronic COPD: ATC duonebs, PRN albuterol, HOB, IS parameters. (5) Hypothyroidism: Continue home synthroid regimen, TSH normal. (6) Diabetes mellitus type II: Hold oral home regimen, ADA diet, accu checks w/ ISS. (7) Oropharyngeal Dysphagia: Noted history prior, on regular diet consistency currently. (8) Chronic headache: PRN tylenol. (9) Elevated Liver Enzymes, Chronic, ? PAULSON: Chronic elevation, hepatic profile 10/06/17 T Bili 1.20, D Bili 0.31, AST/ALT 91/102, Alk phos 206, continue to hydrate, repeat CMP in AM, followed previously with Dr. Garza. (10) GERD: PPI. (11) Anxiety and Depression: continue home regimen duloxetine. (12) IBS: Restart home PRN loperamide. (13) DVT Prophylaxis: SCDs, renally dosed lovenox. (14) CODE status: FULL. Encourage re-discussions with daughterDASHA upon discharge. Code Visit Inpatient E&M: 42814 Subs Hosp L2
[2017-10-07] MEDS: Loperamide 2 MG Capsule PO (10:21)
[2017-10-07 11:40] LABS: Bedside Glucose 105 mg/dL (70-110)
[2017-10-07 16:55] LABS: Bedside Glucose 122 mg/dL (70-110)
[2017-10-07] MEDS: cloNIDine HCl 0.1 MG Tablet PO (22:08)
[2017-10-07] MEDS: Loratadine 10 MG Tablet PO (22:08)
[2017-10-07] MEDS: Aspirin E.C. 81 MG Tablet PO (22:08)
[2017-10-07] MEDS: Atenolol 100 MG Tablet PO (22:10)
[2017-10-07] MEDS: Montelukast 10 MG Tablet PO (22:10)
[2017-10-07] MEDS: Gabapentin 300 MG Capsule PO (22:12)
[2017-10-07] MEDS: amLODIPine 2.5 MG Tablet PO (22:12)
[2017-10-07] MEDS: Atorvastatin Calcium 20 MG Tablet PO (22:12)
[2017-10-07] MEDS: 0.9% NaCl Peripheral Flush Adult/Peds IV (22:13)
[2017-10-08 03:30] VITALS: BP 151/57; PULSE 50; RESP 18; TEMP 36.6; O2SAT 96
[2017-10-08] MEDS: Levothyroxine 112 MCG Tablet PO (06:55)
[2017-10-08] MEDS: Isosorbide DN 10 MG Tablet 5 MG PO ×2 (07:56→11:50)
[2017-10-08] MEDS: 0.9% Normal Saline 1,000 ML 125 ML IV (08:15)
[2017-10-08 09:35] VITALS: BP 141/55; PULSE 53; RESP 18; TEMP 36.4; O2SAT 100
[2017-10-08] MEDS: Pantoprazole Sodium 40 MG Tablet PO (09:37)
[2017-10-08] MEDS: hydroCHLOROthiazide 25 MG Tablet PO (09:37)
[2017-10-08] MEDS: Fluticasone 0.05% 1 SPRAY NASAL.SRY 2 SPRAY NASAL (09:37)
[2017-10-08] MEDS: Enoxaparin 30 MG/0.3 ML Syringe SC (09:37)
[2017-10-08] MEDS: DULoxetine Hcl 30 MG Capsule PO (09:37)
[2017-10-08 10:12] LABS: Absolute Lymphocyte Count 1.28 X10^3/ul (0.83-4.51); Absolute Neutrophil Count 2.7 X10^3/uL (2.0-7.7); Eosinophil# 0.07 X10^3/uL; Eosinophils% 1.6 % (0-5); Hematocrit 41.5 % (37-47); Hemoglobin 12.9 g/dl (12.0-15.0); Lymphocyte # 1.28 X10^3/ul (4.0); Lymphocyte % 29.2 % (19-41); Mean Corp Hgb Conc 31.1 g/gl (32-36); Mean Corpuscular Hgb 29.9 pg (27.0-32.0); Mean Corpuscular Volume 96.1 fL (81-99); Mean Platelet Vol. 9.7 fl (6.2-12.0); Monocyte# 0.37 X10^3/uL; Monocyte% 8.4 % (0-10); Neutrophil # 2.65 X10^3/uL (2.7-7.7); Neutrophil % 60.6 % (47-70); Platelet Count 207 K/mm3 (150-450); RBC Distribution Width CV 14.1 % (11.6-14.6); RBC Distribution Width SD 49.7 fl (35.1-43.9); Red Blood Count 4.32 M/mm3 (4.2-5.4); White Blood Count 4.4 K/mm3 (4.4-11.0)
[2017-10-08 10:50] LABS: ALB/GLOB Ratio 0.7 RATIO (0.9-2.4); AST(SGOT) 20 U/L (15-37); Alanine Aminotransfer ALT/SGPT 41 U/L (13-56); Albumin, Serum 2.7 g/dL (3.2-5.0); Alkaline Phosphatase 115 U/L (45-117); Anion Gap 2 (5-15); BUN 15 mg/dL (7-18); BUN/Creat Ratio 19.7 RATIO (10-20); Calcium,Total 9.1 mg/dL (8.5-10.1); Chloride 111 mmol/L (98-107); Creatinine, Serum 0.76 mg/dL (0.55-1.02); EST Glomerular Filtration Rate 77 mL/min (>60); Est Glom Filt Rate - Afr Amer 94 mL/min (>60); Estimated Creatinine Clearance 38.75 ml/min; Globulin 3.9 g/dL (2.2-4.2); Glucose 110 mg/dL (74-106); Potassium 4.1 mmol/L (3.5-5.1); Protein, Total 6.6 g/dL (6.4-8.2); Sodium Level 142 mmol/L (136-145)
[2017-10-08] MEDS: Cefadroxil 500 MG CAPSULE 1000 MG PO (10:57)
--- NOTE | 2017-10-08 11:01 | PCM.DC ---
- Discharge Diagnoses Current Active Problems: Current Active and Chronic Problems (1) Acute Encephalopathy secondary to Acute E. Coli Urinary Tract Infection (2) Hypertension (3) Hyperlipidemia (4) Chronic COPD (5) Hypothyroidism (6) Diabetes mellitus type II (7) Oropharyngeal Dysphagia, Chronic, Resolved (8) Chronic headache (9) Elevated Liver Enzymes, Chronic, ? PAULSON, Resolved following hydration and infection treatment (#1) (10) GERD (11) Anxiety and Depression: (12) IBS You will use the following diet at home:: Calorie/Carbohydrate Controlled (specify 1200, 1400, etc) - 1800 ADA and cardiac diet encouraged. Your food should be the consistency of: Regular Your liquids should be the consistency of: Regular/Thin Discharge Activity: Use Walker, - - Advise avoidance of aggressive activity until re-assessment per Primary care physician. May resume sexual activity in: 10-14 days Weight Bearing Status: Weight bearing as tolerated Call your doctor if you observe: Fever of 101 or Higher, Inability to urinate, Inability to have a bowel movement, Shortness of breath, Dizziness, Fainting spells, Chest pain, Uncontrolled pain Instructions: Understanding Urinary Tract Infections (UTIs), ED UTI Cystitis Female Additional Instructions: During the admission your urine culture grew E. Coli. You are on the correct oral antibiotic therapy. Please complete this therapy. Please follow-up with Urology as recommended given frequent urinary tract infections leading to hospitalizations. Your initial liver enzymes were mildly elevated but repeat enzymes normalized following IV fluids and treatment of your urinary tract infection. Follow-up with Dr. Garza as needed. Allergies/Adverse Reactions: Allergies hydrocodone bitartrate [From Vicodin] Adverse Reaction (Verified 10/06/17 08:35) Other oxycodone HCl [From Percocet] Adverse Reaction (Verified 10/06/17 08:35) Other Medications to take at Discharge Amlodipine Besylate 2.5 mg PO QHS 07/10/15 Aspirin E.C. [Ecotrin] 81 mg PO QHS 07/10/15 Atenolol [Tenormin] 100 mg PO QHS 07/10/15 Atorvastatin Calcium [Lipitor] 20 mg PO QHS 07/10/15 Clonidine HCl 0.1 mg PO QHS 07/10/15 Esomeprazole Mag Trihydrate [Nexium] 40 mg PO DAILY 07/10/15 Hydrochlorothiazide [Hctz] 25 mg PO DAILY 07/10/15 Isosorbide DN [Isordil] 5 mg PO TIDCM 07/10/15 Levothyroxine [Synthroid] 112 mcg PO SUMOTUWETHFR 07/10/15 Levothyroxine [Synthroid] 224 mcg PO SA 07/10/15 Mometasone/Formoterol [Dulera 200 Mcg/5 Mcg Inhaler] 2 puff INHALATION BID 07/10/15 Montelukast [Singulair] 10 mg PO QHS 07/10/15 Cholecalciferol (Vitamin D3) [Vitamin D3] 4,000 unit PO DAILY 02/15/17 Duloxetine HCl 30 mg PO BID 02/15/17 Fexofenadine HCl [Yelena Allergy] 180 mg PO QHS 02/15/17 Gabapentin [Neurontin] 300 mg PO QHS 02/16/17 Metformin(XR) [Glucophage Xr] 500 mg PO DAILY 06/02/17 Mometasone Furoate [Nasonex] 2 spray NASAL DAILY 10/06/17 Cefadroxil [Duricef] 500 mg PO BID #14 cap 10/08/17 Loperamide [Imodium] 2 mg PO Q2H PRN PRN capsule 10/08/17 The following prescriptions were given: Cefadroxil [Duricef] 500 mg PO BID #14 cap Primary Care Physician: Carin Mckeon DO [Primary Care Provider] - Please follow up with your Primary Care Physician in: Follow-up within 3-5 days to review admission. Please Follow Up With: Velasquez Mixon MD When: Follow-up within 1-2 weeks. Please Follow Up With: Uriah Garza MD When: Please follow-up as needed. Proposed Discharge Date: 10/08/17
[2017-10-08 11:11] LABS: Bedside Glucose 105 mg/dL (70-110)
--- NOTE | 2017-10-08 11:13 | DS.PCM_ITS ---
Discharge Date and Diagnosis - Problem List Patient Problems: Active and Suspected Problems Encephalopathy (Acute) UTI (urinary tract infection) (Acute) Date of Admission: 10/06/17 Date of Discharge: 10/08/17 - Primary Discharge Diagnosis Active and Suspected Problems (1) Acute Encephalopathy secondary to Acute E. Coli Urinary Tract Infection (2) Hypertension (3) Hyperlipidemia (4) Chronic COPD (5) Hypothyroidism (6) Diabetes mellitus type II (7) Oropharyngeal Dysphagia, Chronic, Resolved (8) Chronic headache (9) Elevated Liver Enzymes, Chronic, ? PAULSON, Resolved following hydration and infection treatment (#1) (10) GERD (11) Anxiety and Depression: (12) IBS - Secondary Discharge Diagnosis Chronic Problems (1) Acute Encephalopathy secondary to Acute E. Coli Urinary Tract Infection (2) Hypertension (3) Hyperlipidemia (4) Chronic COPD (5) Hypothyroidism (6) Diabetes mellitus type II (7) Oropharyngeal Dysphagia, Chronic, Resolved (8) Chronic headache (9) Elevated Liver Enzymes, Chronic, ? PAULSON, Resolved following hydration and infection treatment (#1) (10) GERD (11) Anxiety and Depression: (12) IBS Hospital Course and Treatment Operations: None Procedures: None Summary of Care Provided: The patient is a 81 y/o F w/ PMHx: Chronic R ankle pain following w/ Dr. Melchor for injections, Diabetes mellitus type II, Chronic Oropharyngeal Dysphagia, Chronic headaches, GERD, Chronic COPD, HTN, HLD, History of Elevated LFTs in the past with unclear etiology following w/ Dr. Garza (? PAULSON), Anxiety and Depression, Hypothyroidism, Allergic Rhinitis who presented to the [facility] ED on 10/06/17 from home with onset confusion, increased lethargy with possible dysuria, foul smelling urine x 24 hours. Daughter was contacted per her with concerns given her status change. Admitted to [facility] upon ED evaluation remarkable, pending UCx, continued IVFs, monitor I/Os, continued IV Rocephin w/ transition to duracef given E. Coli UCx with near waller- sensitivities. Patient was maintained on fall precautions, HOB, IS, PT, OT, CM consulted, but patient notably improved and was up with walker without assist thus discharged to home with all assist devices already in place. Given 3rd UTI over the last 6 months and all required hospitalization, upon discharge referral requested to Urology. During admission patient liver enzymes elevated, 10/06/17 T Bili 1.20, D Bili 0.31, AST/ALT 91/102, Alk phos 206 with return to normal 10/08/17 following treatment of acute infection and hydration. Patient discharge to home in stable, improved condition with PCP and [id number] follow-up recommendations and recommended follow-up with Dr. Garza as needed for her Chronic Liver Disease, ? PAULSON. DAY OF DISCHARGE PROGRESS NOTE: Subjective: Patient without acute event overnight per self and nursing report. Patient denies fever, chills, nausea, emesis, abdominal pain, chest pain or dyspnea. Patient agreeable to discharge to home. PT/OT assessment with no home needs given improvement with current treatments. Patient will be discharged with follow-up with primary care physician within 3-5 days in addition to Urology to establish given frequent UTIs requiring admission. Objective: T 97.6, heart rate 53, BP 141/55, respiratory rate 18, 100% on room air. Physical Examination: General: awake, alert, oriented x 3, NAD, walking in halls prior with therapies with walker without assist. Skin: normal color, turgor, no icterus, cyanosis. HEENT: AT/NC, EOMI, PERRLA, MMM. Lungs: CTA bilaterally, moderate effort, mild decrease BL bases, no rales, ronchi or wheezing. Heart: Regular rate and rhythm; no gallop, rub audible. Abdomen: soft, obese, NTTP, ND, normal BS. Extremities: no cyanosis, clubbing, or edema. Neurological: patient awake, alert, oriented x 3 as noted; cognitive function improved, appears near baseline intact; pupils equally reactive to light and accomodation; cranial nerves II-XII grossly normal, moving all 4 extremities, no focal deficits, strength improved, mildly to moderately globally decreased. Psychiatric: affect appears normal, no acute evidence of depressive or anxiety feelings. Assessment and Plan: Please see hospital summary above. Discharge Activity: Use Walker, - - Advise avoidance of aggressive activity until re-assessment per Primary care physician. May resume sexual activity in: 10-14 days Weight Bearing Status: Weight bearing as tolerated Call your doctor if you observe: Fever of 101 or Higher, Inability to urinate, Inability to have a bowel movement, Shortness of breath, Dizziness, Fainting spells, Chest pain, Uncontrolled pain Home Medications: Medications to take at Discharge Amlodipine Besylate 2.5 mg PO QHS 07/10/15 Aspirin E.C. [Ecotrin] 81 mg PO QHS 07/10/15 Atenolol [Tenormin] 100 mg PO QHS 07/10/15 Atorvastatin Calcium [Lipitor] 20 mg PO QHS 07/10/15 Clonidine HCl 0.1 mg PO QHS 07/10/15 Esomeprazole Mag Trihydrate [Nexium] 40 mg PO DAILY 07/10/15 Hydrochlorothiazide [Hctz] 25 mg PO DAILY 07/10/15 Isosorbide DN [Isordil] 5 mg PO TIDCM 07/10/15 Levothyroxine [Synthroid] 112 mcg PO SUMOTUWETHFR 07/10/15 Levothyroxine [Synthroid] 224 mcg PO SA 07/10/15 Mometasone/Formoterol [Dulera 200 Mcg/5 Mcg Inhaler] 2 puff INHALATION BID 07/10 Montelukast [Singulair] 10 mg PO QHS 07/10/15 Cholecalciferol (Vitamin D3) [Vitamin D3] 4,000 unit PO DAILY 02/15/17 Duloxetine HCl 30 mg PO BID 02/15/17 Fexofenadine HCl [Yelena Allergy] 180 mg PO QHS 02/15/17 Gabapentin [Neurontin] 300 mg PO QHS 02/16/17 Metformin(XR) [Glucophage Xr] 500 mg PO DAILY 06/02/17 Mometasone Furoate [Nasonex] 2 spray NASAL DAILY 10/06/17 Cefadroxil [Duricef] 500 mg PO BID #14 cap 10/08/17 Loperamide [Imodium] 2 mg PO Q2H PRN PRN capsule 10/08/17 Following Prescrptions Were Given to Patient: Cefadroxil [Duricef] 500 mg PO BID #14 cap Primary Care Physician: Carin Mckeon DO [Primary Care Provider] - Please follow up with your Primary Care Physician in: Follow-up within 3-5 days to review admission. Please Follow Up With: Velasquez Mixon MD When: Follow-up within 1-2 weeks. Please Follow Up With: Uriah Garza MD When: Please follow-up as needed. Patient Instructions: Understanding Urinary Tract Infections (UTIs), ED UTI Cystitis Female Disposition: Home Minutes spent on discharge:: 35 Patient Condition:: Fair Medical Necessity - Tobacco Use Smoking Status: Former smoker - Quit many years prior, > 41. Tobacco Use: Non-smoker Meaningful Use Info Meaningful Use Diagnoses (Choose all that apply): None applicable Code Visit Inpatient E&M: 22509 Disch Hosp
[2017-10-08 12:00] LABS: Bedside Glucose 98 mg/dL (70-110)
--- NOTE | 2017-10-09 15:29 | CASEMGMT ---
MARIANNE SIMONS Discharge Follow-up Phone Call: JONATHAN: Hakeem Strata: 3 Call Date: 10/09/17 Discharge Date: 10/08/17 Time of Call: 1531 Duration: 5 Min Admitting Diagnosis: Encephalopathy, UTI RN KRISTYN spoke with patient and states she is feeling much better. Patient had no concerns regarding discharge instruction or medications. Patient was able to fill prescription without any problems. Discharge follow-up appts were scheduled prior to discharge.
== END 2017-10-08 14:20 | disposition home or self-care (01) | DRG 689 ==
LOC: ED 09:02 → MS3 10:38
PROVIDERS: Admitting Provider Family Medicine; Emergency Provider Emergency Medicine; Family Provider Internal Medicine; PCP Internal Medicine; Visit Provider Family Medicine
DX: N39.0 Urinary tract infection, site not specified (principal); G93.49 Other encephalopathy; B96.20 Unspecified Escherichia coli [E. coli] as the cause of diseases classified elsewhere; I10 Essential (primary) hypertension; E78.5 Hyperlipidemia, unspecified; J44.9 Chronic obstructive pulmonary disease, unspecified; E03.9 Hypothyroidism, unspecified; R13.12 Dysphagia, oropharyngeal phase; R51 Headache; R74.8 Abnormal levels of other serum enzymes; K21.9 Gastro-esophageal reflux disease without esophagitis; F32.9 Major depressive disorder, single episode, unspecified; K58.9 Irritable bowel syndrome, unspecified; E66.9 Obesity, unspecified; E78.00 Pure hypercholesterolemia, unspecified; E11.8 Type 2 diabetes mellitus with unspecified complications; M25.571 Pain in right ankle and joints of right foot; G89.29 Other chronic pain; J30.9 Allergic rhinitis, unspecified; Z87.440 Personal history of urinary (tract) infections; Z68.35 Body mass index [BMI] 35.0-35.9, adult; Z79.82 Long term (current) use of aspirin; Z79.899 Other long term (current) drug therapy; Z87.891 Personal history of nicotine dependence
CPT/HCPCS: 36415; 80048; 80053; 80076; 81001; 82962; 83605; 83735; 84439; 84443; 85025; 87086; 87088; 87186; 94640; 97162; 97165; 97530; 97802; 99285; J7030; P9612; A4216

== ENCOUNTER → 2018-03-17 12:21 | Outpatient (CLI) | payer MEDICARE, OTHER, SELFPAY ==
--- NOTE | 2018-03-17 12:24 | RAD_ITS ---
STUDY: X-RAY - RIGHT SHOULDER REASON FOR EXAM: Female, 82 years old. Bilateral shoulder pain, several falls. TECHNIQUE: 4 view(s) of the shoulder including frontal internal and external rotation views. COMPARISON: None. FINDINGS: There is limited range of motion on internal and external rotation views, otherwise normal glenohumeral articulation. Normal acromioclavicular joint. Normal acromion. There is a healed transverse fracture deformity at the neck of the humerus, as well as old healed fracture/callus formation along the posterolateral margin of the humeral head. The soft tissue structures are unremarkable. There is no demonstrated osseous destructive lesion or fracture. Normal visualized pulmonary apex. RAD/Shoulder min 2 Views IMPRESSION: Old healed fracture deformity of the right humeral head/neck. There is limited range of motion on internal and external rotation views. Electronically Signed: Vaughn Allan MD at 15:41 EDT , Service support ,
--- NOTE | 2018-03-17 12:26 | RAD_ITS ---
STUDY: X-RAY - LEFT SHOULDER REASON FOR EXAM: Female, 82 years old. Bilateral shoulder pain, several falls. TECHNIQUE: 4 view(s) of the shoulder, including frontal internal and external rotation views. COMPARISON: None. FINDINGS: Normal glenohumeral articulation. There is degenerative arthrosis of the acromioclavicular joint without inferior osseous spur formation. Normal acromion. Normal humeral head and visualized proximal humerus. Small metal surgical clip projects in the medial soft tissues of the left upper arm. There is no demonstrated osseous destructive lesion or fracture. Normal visualized pulmonary apex. RAD/Shoulder min 2 Views IMPRESSION: 1. 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 2. Incidental note of surgical clip in the soft tissues of the left upper arm. Electronically Signed: Vaughn Allan MD at 15:42 EDT , Service support ,
== END ==
PROVIDERS: Family Provider Internal Medicine; PCP Internal Medicine; Referring Provider Anesthesiology Pain Medicine; Visit Provider Anesthesiology Pain Medicine
DX: M25.512 Pain in left shoulder (principal); M25.511 Pain in right shoulder
CPT/HCPCS: 73030

== ENCOUNTER 2018-04-14 10:30 | Outpatient (RCR) | payer MEDICARE, OTHER, SELFPAY ==
--- NOTE | 2018-03-19 07:13 | HP.PTEVAL_ITS ---
Patient's Visit Information KARRIE DAVID is a 82 year old F referred to Physical Therapy by Kofi Rodriguez MD with a diagnosis of Bilateral shoulder and low back pain.. Date of Evaluation: 03/18/18 Physical Therapist: Macarena Tay - Visit Plan Frequency: 1x/Week Duration: 3 Weeks Plan: Aquatic therapy focusing on scapular, shoulder, lumbar range of motion, shoulder and core strength, and balance. - Subjective Subjective: Pt. c/o bilat. shoulder and LBP. Went to pain physician Thursday and told him that she fell on her shoulders and he said go to PT. Already doing aquatic therapy 45 minutes Thursday and Thursday, been doing for years enjoys it. Physician offered injection but pt. not interested at the time. F/u Thursday with physician, told him that her back did not bother her when exercising in water Thursday. Radiographs on Thursday (03/17) of shoulder, haven't heard results. Frequently fall, fell 2-3 weeks ago out of bed while dreaming fell on L side and shoulder started hurting. 2 weeks before that fell on R shoulder. 2 years in May had fx in R shoulder after falling. Got 4 wheel front seated walker when back surgery 5 years ago. Pt. will do land or aquatic therapy. No lumbar pain when sit or supine. Pain starts anterior shoulder and moves posterior and distal. Current pain shoulders 7/10, back 0/10, worst shoulders 8/10, worst back 9/10, best back 0/10, best shoulders 0/10. Back pain in lower L side. Shoulder pain sometimes sharp or achy. Back pain can't describe, more sharp. Have not cleaned house for year, does not cook anymore because cannot stand for that long. Can stand only 5 minutes before pain. Dress independently, sit on shower chair. Not driving because does not want her to. at home all day with her. Basement stairs with railing using both hands going up. If going to yard, walk around on grass instead of cement stairs. Sits in recliner and does crossword and color. No problem sleeping, takes Gabapentin. Sleep mostly on R side and wake up supine. Sometimes numbness and tingling in fingers and toes, cramps. Feel like lose balance throughout day but just grab walker. Gets dizzy, no blurry. No HAMMOND. No changes in bowel/bladder. PMH: DM, allergies, IBS, recurrent UTI, fibromyalgia. Medications: HTN, vitamin, could not recall list. Goals: Alleviate shoulder pain. - Pain bilat. shoulder Pain Intensity (Out of 10): 7 L side low back Pain Intensity (Out of 10): 0 - Objective Gait: ambulates with 4 wheel walker, decreased dalia, mild swerving constant throughout. Posture: kyphosis, shift between leaning left and right while seated and sways in unsupported seating upon movement. Stairs: did not attempt due to time limitation and feeling unstable. Dermatomes: UE and LE intact bilat. AROM: lumbar flex. to knees, ext. to neutral, felt too unstable to do rest of motions. Shoulder flex. approx. 120 deg, abd. approx 90 deg, IR to low back, ER and IR at side WFL and pain in L shoulder, elbow and wrist WFL. Hip, knee and ankle WFL. Strength: shoulder 3+/5 throughout and L shoulder pain for all motions, elbow and wrist 4/5. Scapular strength fair. Core strength poor. Hip and knee 4/5, ankle 5/5. Toe and heel raise 75% with UE and contact guard. Palpation: R winging scapula, tight upper trap, TTP along bilat. coracoid process, L spine of scapula. Flexibility: hamstring, gastroc, soleus mild restriction. Special Tests: Slump bilat. (+) - Goals Goal 1:: Pt. will be I with HEP and progressions. Goal Time Frame: 4-6 Weeks Goal 2:: Pt. will demonstrate increased shoulder ROM to WFL to perform ADLs without restriction or pain. Goal Time Frame: 4-6 Weeks Goal 3:: Pt. will increase shoulder strength to 4/5 and core strenth to good to increase endurance of ADLs. Goal Time Frame: 4-6 Weeks Goal 4:: Pt. will ambulate 300' under control at a normal dalia with LRD. Goal Time Frame: 4-6 Weeks - Rehabilitation Potential Physical Therapy Diagnosis: Patient presents with hypomobility. Decreased shoulder and lumbar range of motion and strenth limiting patient from full participation in ADLs pain free and maintaining prolonged positions. Rehabilitation Potential: Fair - Anticipated Interventions Patient/Client Instruction: Educate patient on: Condition, Plan of Care For the Purpose of:: To increase ROM, To improve ability to perform ADL's, To improve performance and independence with ADL's, To increase flexibility/ROM, To improve endurance, To improve balance, To improve safety with gait Therapeutic Exercise to Include: Strength training, Power training, Endurance training, Balance training, Coordination, Postural training, In an aquatic setting, Active ROM, Dynamic Lumbar Stabilization, Scapular Strength/Stabilization For the Purpose of:: To increase ROM, To improve muscle performance and motor function, To improve ability to perform ADL's, To improve performance and independence with ADL's, To increase flexibility/ROM, To improve endurance, To improve balance, To improve safety with gait, To improve tolerance to ADL's TENS: Yes Cryotherapy (ice pack, ice massage): Yes Thermo therapy (hot pack): Yes Ultrasound (thermal/non thermal): No For the Purpose of:: To decrease pain Thank you for the opportunity to evaluate your patient. For Medicare and Medicare HMO plans, please review the plan of care and approve it. It will need to be FAXED BACK to us at [phone] for Medicare purposes. Please let me know if there are questions or concerns regarding this plan of care. Physician Signature: Date:
--- NOTE | 2018-04-14 10:50 | HP.PTDCSUM ---
HP - PT D/C Summary It has been my pleasure to treat KARRIE DAVID under orders from Kofi Rodriguez MD, for the diagnosis of Bilateral shoulder and low back pain. for a total of 5 visit(s). Discharge Date: Please see the following information for a summary of their discharge status. - Subjective Subjective: Patient reports that her head feels like she is going to fall and needs to sit on the side of the bed until it passes. Does not feel like its vertigo. Her back pain is okay- no pain currently but hurt this morning. [facility] [facility] apt was changed due to the computers are down. Doesn't feel that she is getting more than she gets in the pool with her exercise class. - Pain bilat. shoulder Pain Intensity (Out of 10): 7 L side low back Pain Intensity (Out of 10): 5 - Overall Improvement % Improvement: 75 - Objective Objective/Function: Gait: ambulates with 4 wheel walker, decreased dalia, mild swerving constant throughout towards the left more than right. Posture: kyphosis- no swaying noted today- leaning back against chair. Dermatomes: UE and LE intact bilat. Strength: shoulder 4-/5 throughout and L shoulder pain for all motions, elbow and wrist 4/5. Scapular strength fair. Core strength fair. Hip and knee 4/5, ankle 5/5. Toe and heel raise 75% with UE and contact guard. Palpation: R winging scapula, tight upper trap, TTP along bilat. coracoid process, L spine of scapula. Flexibility: hamstring, gastroc, soleus mild restriction. Special Tests: Slump bilat. (+) - Goals Goal 1:: Pt. will be I with HEP and progressions. Goal Progress: Goal Met Goal 2:: Pt. will demonstrate increased shoulder ROM to WFL to perform ADLs without restriction or pain. Goal Progress: Progressing Goal 3:: Pt. will increase shoulder strength to 4/5 and core strenth to good to increase endurance of ADLs. Goal Progress: Progressing Goal 4:: Pt. will ambulate 300' under control at a normal dalia with LRD. Goal Progress: Progressing - Plan Plan: Discharge to I HEP - D/C Information If there are questions or concerns regarding this patient's physical therapy, please feel free to call me at [phone]. Thank you for the referral of this patient. Sincerely, Macarena Tay
== END 2018-04-14 11:06 | disposition home or self-care (01) ==
LOC: PT 10:30
PROVIDERS: Family Provider Internal Medicine; PCP Internal Medicine; Referring Provider Anesthesiology Pain Medicine; Visit Provider Anesthesiology Pain Medicine
DX: M51.36 Other intervertebral disc degeneration, lumbar region (principal); M48.061 Spinal stenosis, lumbar region without neurogenic claudication; M19.012 Primary osteoarthritis, left shoulder; M19.011 Primary osteoarthritis, right shoulder
CPT/HCPCS: 97113; 97161; 97164

== ENCOUNTER 2018-07-08 08:13 | Observation (INO) | payer MEDICARE, OTHER, SELFPAY ==
[2018-07-08] VITALS (9 sets, daily range): BP systolic 144–163; BP diastolic 50–64; PULSE 74–81; RESP 16–22; TEMP 36.7–38.3; O2SAT 91–95; BMI 34.9; BMI 34.4; BMI 34.5
--- NOTE | 2018-07-08 08:30 | EKG12_ITS ---
Test Reason : WEAKNESS Blood Pressure : / mmHG Vent. Rate : 075 BPM Atrial Rate : 075 BPM P-R Int : 158 ms QRS Dur : 130 ms QT Int : 408 ms P-R-T Axes : 045 -39 104 degrees QTc Int : 455 ms Normal sinus rhythm Left axis deviation Left bundle branch block Abnormal ECG Confirmed by MYLENE PEREZ, RAJ ([id number]), newspaper or periodical editor BRAYAN GARCIA ([id number] on 07/13/2018 2:47:19 PM Referred By: MARILUZ Confirmed By:RAJ CHAKRABORTY MD
--- NOTE | 2018-07-08 08:30 | RAD_ITS ---
STUDY: X-RAY CHEST REASON FOR EXAM: Female, 82 years old. Fever and weakness. TECHNIQUE: Single AP portable view of the chest. COMPARISON: Comparison is made with prior study dated February 15, 2017. FINDINGS: EKG electrodes are seen. The lungs are clear and expanded. There is no demonstrated pleural abnormality. Normal size heart. Normal mediastinum and farrah. Normal visualized pulmonary arteries. Normal visualized aortic arch and descending thoracic aorta. There are diffuse degenerative changes of the visualized thoracic spine. Normal visualized ribs, clavicles, and shoulders. There is no demonstrated abnormality of the visualized soft tissue structures of the upper abdomen. RAD/Chest 1 View (Portable) IMPRESSION: No acute abnormality is seen. Electronically Signed: Shai Gonzalez MD at 9:17 EST , Service support ,
[2018-07-08] MEDS: 0.9% Normal Saline 1,000 ML 150 ML IV (09:25)
[2018-07-08] MEDS: Oseltamivir Phosphate 75 MG Capsule PO (09:25)
[2018-07-08 09:29] LABS: Absolute Lymphocyte Count 0.96 X10^3/ul (0.83-4.51); Absolute Neutrophil Count 5.5 X10^3/uL (2.0-7.7); Basophil# 0.01 X10^3/uL; Basophil% 0.1 % (0-1); Eosinophil# 0.02 X10^3/uL; Eosinophils% 0.3 % (0-5); Hemoglobin 15.2 g/dl (12.0-15.0); Lymphocyte # 0.96 X10^3/ul (4.0); Lymphocyte % 13.7 % (19-41); Mean Corpuscular Hgb 30.8 pg (27.0-32.0); Mean Corpuscular Volume 93.3 fL (81-99); Mean Platelet Vol. 9.6 fl (6.2-12.0); Monocyte# 0.56 X10^3/uL; Neutrophil # 5.45 X10^3/uL (2.7-7.7); Neutrophil % 77.6 % (47-70); POSITIVE COUNT NO; POSITIVE DIFFERENTIAL NO; POSITIVE MORPHOLOGY NO; Platelet Count 259 K/mm3 (150-450); RBC Distribution Width CV 14.5 % (11.6-14.6); RBC Distribution Width SD 48.1 fl (35.1-43.9); Red Blood Count 4.93 M/mm3 (4.2-5.4)
[2018-07-08 09:50] LABS: Anion Gap 8 (5-15); BUN 14 mg/dL (7-18); BUN/Creat Ratio 17.1 RATIO (10-20); Calcium,Total 9.3 mg/dL (8.5-10.1); Chloride 99 mmol/L (98-107); Creatinine, Serum 0.82 mg/dL (0.55-1.02); EST Glomerular Filtration Rate 71 mL/min (>60); Est Glom Filt Rate - Afr Amer 86 mL/min (>60); Estimated Creatinine Clearance 46.46 ml/min; Glucose 107 mg/dL (74-106); Potassium 4.1 mmol/L (3.5-5.1); Sodium Level 136 mmol/L (136-145)
[2018-07-08 09:56] LABS: Lactic Acid 1.9 mmol/L (0.4-2.0)
[2018-07-08 10:21] LABS: Mucous, Urine 0 SEEN /hpf (<or=2+); Squamous Epithelial Cells - UA 0 SEEN /hpf (5-10); White Blood Cells 0 SEEN /hpf (0-5)
[2018-07-08] MEDS: Ondansetron 4 MG/2 ML Vial IV (10:23)
[2018-07-08 10:25] LABS: Color, Urine Yellow (Yellow); Glucose, Dipstick Normal (Normal); Ketone-Dipstick Negative (Negative); Leukocyte Esterase-Dipstick Negative /ul (Negative); Nitrite-Dipstick Negative (Negative); Occult Blood-Urine 10 /ul (Negative); Protein-Dipstick Negative (Negative); Specific Gravity, Urine 1.015 (1.002-1.030); Urine Bilirubin Dipstick Negative (Negative); Urine Clarity Sl. Cloudy (Clear); Urine Urobilinogen Normal (Normal)
[2018-07-08 10:34] LABS: Bacteria 2+ /hpf (None Seen); Red Blood Cells-Urine 0-5 SEEN /hpf (0-5)
--- NOTE | 2018-07-08 10:44 | ED.DCSUM_ITS ---
- ER Visit Summary Date of Service: 07/08/18 Chief Complaint: [Weakness and fever] History of Present Illness: The patient is a 82 F [resents the emergency department via EMS from home with complaint of general weakness today. Patient states that she developed a fever. States that her legs just will not work and she made her call the squad. Patient has felt this way multiple times in the past over the last 10 years. Typically when similar symptoms have come on patient has had urinary tract infections. She denies however dysuria, urgency, or frequency. She has had no vomiting or diarrhea. She denies any chest pain or abdominal pain. She denies sick contacts. Patient states that she had a cold in May.] Patient states that she was doing better until yesterday when she developed a cough again. Physical Examination: [HEMONA-PERRLA, REGINAMI. Cranial nerves II through XII grossly intact. TMs clear. Mucous membranes moist. No adenopathy. Cardiovascular-regular rate and rhythm without murmur or ectopy Lungs-clear to auscultation, chest wall stable without crepitus or subcu emphysema Abdomen-normoactive bowel sounds, soft, nontender, no rebound or rigidity, no peritoneal signs. Extremities-intact ?4, normal range of motion, normal pulses, atraumatic] Test Results: [EKG obtained on arrival showed a sinus rhythm with a ventricular rate of 75 bpm with a left bundle branch block. CBC with differential showed a white count of 7.0, hemoglobin 15, hematocrit 46, platelets 259. Chemistries were unremarkable. Urinalysis was normal. Troponin was less than 0.015. Chest x-ray was normal. Influenza screen was positive for influenza A.] Emergency Department Course and Treatment: [Patient received Tamiflu 75 mill grams p.o. Patient was given normal saline. Patient did begin to vomit in the emergency department was given Zofran 4 mill grams IV.] Treatment Plan: Admit [] Disposition: [Admit] Impression: [Generalized weakness Influenza a This note was generated with [employer] dictation software. It may contain incorrect words, spelling, and punctuation that were not noted in review of the chart prior to signing ED Disposition - Plan for ED Patient: Chief Complaint: Weakness Referrals: Carin Mckeon DO [Primary Care Provider] -
--- NOTE | 2018-07-08 10:53 | PCM.PN.HOSP ---
Vitals/I&O's: Vital Signs Temp Pulse Resp BP Pulse Ox 98.1 F 81 22 H 157/63 H 91 07/08/18 08:22 07/08/18 10:34 07/08/18 10:34 07/08/18 10:34 07/08/18 10:34 Oxygen Delivery Method Room Air Weight: 92.3 kg Body Mass Index (BMI) 34.9 General: Alert, Oriented x3, Cooperative HEENT: Atraumatic, PERRLA, EOMI, Normocephalic Neck: Supple, No JVD, Negative Carotid Bruits Lungs: Clear to auscultation, Normal air movement Cardiovascular: Regular rate, No murmurs Abdomen: Bowel Sounds Present, Soft, Non Tender Extremities: No edema, Capillary Refill Less than 3 Seconds Skin: No rashes, No breakdown Musculoskeletal: No Tenderness to Palpation of Joints or Extremities Neurological: Cranial nerves II-XII grossly intact Psych/Mental Status: Normal Affect, Appropriate Microbiology Past 72 Hours 07/08/18 08:51 Mucosa - Nasopharyngeal Influenza Types A,B Direct FA (DEMETRIO) - Final Influenzae A Laboratory Results 07/08/18 09:15: WBC 7.0, RBC 4.93, Hgb 15.2 H, Hct 46.0, MCV 93.3, MCH 30.8, MCHC 33.0, RDW 14.5, RDW Differential 48.1 H, Plt Count 259, MPV 9.6, Immature Gran % (Auto) 0.300, Neut % (Auto) 77.6 H, Lymph % (Auto) 13.7 L, [place] % (Auto) 8.0, Eos % (Auto) 0.3, Baso % (Auto) 0.1, Absolute Neuts (auto) 5.5, Absolute Lymphs (auto) 0.96, Total Counted Not Reportable 07/08/18 09:15: Sodium 136, Potassium 4.1, Chloride 99, Carbon Dioxide 29.0, Anion Gap 8, BUN 14, Creatinine 0.82, Estim Creat Clear Calc 46.46, Est GFR (MDRD) Af Amer 86, Est GFR (MDRD) Non-Af 71, BUN/Creatinine Ratio 17.1, Glucose 107 H, Calcium 9.3, Troponin I < 0.015 07/08/18 09:15: Lactic Acid 1.9 07/08/18 10:15: Urine Color Yellow, Urine Clarity Sl. Cloudy, Urine pH 8.0, Ur Specific [place] 1.015, Urine Protein Negative, Urine Glucose (UA) Normal, Urine Ketones Negative, Urine Occult Blood 10 H, Urine Nitrite Negative, Urine Bilirubin Negative, Urine Urobilinogen Normal, Ur Leukocyte Esterase Negative, Urine RBC 0-5 SEEN, Urine WBC 0 SEEN, Ur Squamous Epith Cells 0 SEEN, Urine Bacteria 2+, Urine Mucus 0 SEEN Current Medications Sodium Chloride () 1,000 mls @ 150 mls/hr IV .[id number] [facility] [place] Last Admin: 07/08/18 09:25 Dose: 150 mls/hr Medical Necessity - Tobacco Use Smoking Status: Former smoker Assessment/Plan All Active Problems Encephalopathy (Acute) UTI (urinary tract infection) (Acute) Code Visit OBSV E&M: 25410 Initial observation care L3
--- NOTE | 2018-07-08 13:15 | PCM.HP.STD ---
Problem List (1) Acute bronchitis due to Haemophilus influenzae Status: Acute (2) GERD (gastroesophageal reflux disease) Status: Chronic Qualifiers: Qualified Code(s): K21.9 - Gastro-esophageal reflux disease without esophagitis (3) Chronic obstructive pulmonary disease (COPD) Status: Chronic Qualifiers: COPD type: unspecified COPD (4) Hypothyroidism Status: Chronic Qualifiers: Hypothyroidism type: unspecified (5) Obesity (BMI 30-39.9) Status: Chronic (6) HLD (hyperlipidemia) Status: Chronic Qualifiers: Hyperlipidemia type: unspecified Qualified Code(s): E78.5 - Hyperlipidemia, unspecified (7) HTN (hypertension) Status: Chronic Qualifiers: Hypertension type: essential hypertension (8) Diabetes mellitus, type II Status: Chronic Qualifiers: Diabetes mellitus alf insulin use: without long distance operator use Diabetes mellitus complication status: with unspecified complications Qualified Code(s): E11.8 - Type 2 diabetes mellitus with unspecified complications (9) Anxiety and depression Status: Chronic History of Present Illness Date of Admission: 07/08/18 Chief Complaint: Generalised weakness, cough - 2 days The patient is a 82 year old F with past medical history of type II DM, hypertension, hyperlipidemia, obesity who comes in with complaints of generalized weakness and cough ongoing for a Couple of days. Patient complains of subjective fever and chills but no nausea or vomiting. She felt very weak. In the past she has history of recurrent UTIs and this felt almost the same. She could not walk, felt very weak. She complains of feeling unwell since April 2018. Had had a cold several times. The latest symptoms have been a couple of days ago. Vitals in the ED show temperature of 90 8.1F, blood pressure 133/60, heart rate of 74, respiratory is 18, SPO2 is 94% on room air. Her admitting blood work showed RBC count of 7.0, Hb 15.2, platelet count of 259, BMP was unremarkable. UA was also unremarkable. Admitting chest x-ray was negative for any acute cardiopulmonary process. Respiratory panel showed acute influenza A. Past Medical History Past Medical History (Chronic Problems): Chronic Problems GERD (gastroesophageal reflux disease) (Chronic) Chronic obstructive pulmonary disease (COPD) (Chronic) Hypothyroidism (Chronic) Obesity (BMI 30-39.9) (Chronic) HLD (hyperlipidemia) (Chronic) HTN (hypertension) (Chronic) Diabetes mellitus, type II (Chronic) Anxiety and depression (Chronic) Elevated liver enzymes (Chronic) Allergies hydrocodone bitartrate [From Vicodin] Adverse Reaction (Verified 10/06/17 08:35) Other oxycodone HCl [From Percocet] Adverse Reaction (Verified 10/06/17 08:35) Other Home Medications: Ambulatory Orders Medication Instructions Recorded Amlodipine Besylate 2.5 mg PO QHS 07/10/15 Aspirin E.C. [Ecotrin] 81 mg PO QHS 07/10/15 Atenolol [Tenormin] 100 mg PO QHS 07/10/15 Atorvastatin Calcium [Lipitor] 20 mg PO QHS 07/10/15 Clonidine HCl 0.1 mg PO QHS 07/10/15 Hydrochlorothiazide [Hctz] 25 mg PO DAILY 07/10/15 Isosorbide DN [Isordil] 7.5 mg PO TIDCM 07/10/15 Levothyroxine [Synthroid] 112 mcg PO SUMOTUWETHFR 07/10/15 Levothyroxine [Synthroid] 224 mcg PO SA 07/10/15 Mometasone/Formoterol [Dulera 200 2 puff INHALATION BID 07/10/15 Mcg/5 Mcg Inhaler] Montelukast [Singulair] 10 mg PO QHS 07/10/15 Cholecalciferol (Vitamin D3) 4,000 unit PO DAILY 02/15/17 [Vitamin D3] Fexofenadine HCl [Yelena Allergy] 180 mg PO QHS 02/15/17 Gabapentin [Neurontin] 300 mg PO QHS 02/16/17 Metformin(XR) [Glucophage Xr] 500 mg PO DAILY 06/02/17 Mometasone Furoate [Nasonex] 2 spray NASAL DAILY 10/06/17 Loperamide [Imodium] 2 mg PO Q2H PRN PRN capsule 10/08/17 Ascorbic Acid [Vitamin C] 1,000 mg PO QHS 07/08/18 Cranberry Fruit Concentrate [Azo 1 tab PO BID 07/08/18 Cranberry] Duloxetine Hcl [Cymbalta] 30 mg PO QHS 07/08/18 Esomeprazole Mag Trihydrate 40 mg PO BID 07/08/18 [Nexium] Guaifenesin [Mucinex] 1,200 mg PO BID 07/08/18 Meclizine HCl 12.5 mg PO TID PRN 07/08/18 Methenamine Hippurate 1 gm PO QHS 07/08/18 Surgical History: - - Total hystectomy, appendectomy, lumbar surgery, left partial knee replacement, left mastectomy with lymph node dissection. Psychiatric History: Anxiety, Depression [employer] History: No pertinent [employer] history Lives: Spouse/ Significant Other Smoking Status: Former smoker Tobacco Use: Cigarettes Alcohol: None Drugs: None - *Family History Maternal History Items: No pertinent history Paternal History Items: Heart Disease Review of Systems Constitutional: Reports: Anorexia, Chills, Fever, Weakness. Denies: Night Sweats, Weight Change Eyes: Denies: Blurred vision, Cataracts, Pain, Redness HEENT: Reports: Nasal Congestion, Sore Throat. Denies: Difficulty Hearing, Difficulty Swallowing, Head Aches, Hearing Changes, Sinus Congestion, Sinus Drainage Cardiovascular: Denies: Chest Pain, Claudication, Orthopnea, Palpitations, Paroxysmal Noc. Dyspnea Respiratory: Reports: Shortness of breath at rest, Shortness of breath upon exertion. Denies: Cough, Hemoptysis, Sputum production Gastrointestinal: Denies: Abdominal Pain, Nausea, Vomiting Genitourinary: Denies: Dysuria, Frequency, Incontinence Musculoskeletal: Denies: Joint Pain, Joint stiffness, Joint swelling, Joint Tenderness Skin: Denies: Rash, Wounds Neurological: Denies: Difficulty swallowing, Focal weakness, Numbness, Tingling Psychiatric: Denies: Anxiety, Depression, Homicidal Ideations, Suicidal Ideations Hematologic/ Lymphatic: Denies: Easy Bruising, Easy Bleeding VTE Information - Inpt Only VTE Present on Admission: No VTE Pharm Prophylaxis ordered?: Yes Patient Problems: Active and Suspected Problems Acute bronchitis due to Haemophilus influenzae (Acute) - Physical Exam General: Alert, Oriented x3, Cooperative, No apparent distress HEENT: Atraumatic, PERRLA, EOMI, Normocephalic Oral: Moist Mucosa Neck: Supple, No JVD, Negative Carotid Bruits Lungs: Clear to auscultation, Normal air movement Cardiovascular: Regular rate, Regular Rhythm, Normal S1, Normal S2, No murmurs Abdomen: Bowel Sounds Present, Soft, Non Tender, Non-Distended, No Hepato-splenomegaly Extremities: No edema Skin: No rashes, No breakdown Musculoskeletal: No Tenderness to Palpation of Joints or Extremities Lymphatic: No Cervical, Supraclavicular, or Inguinal Adenopathy Neurological: Cranial nerves II-XII grossly intact, Neuro grossly intact Psych/Mental Status: Normal Affect, Appropriate Vital Signs Temp Pulse Resp BP Pulse Ox 99.4 F H 79 18 145/64 H 95 07/08/18 11:48 07/08/18 11:48 07/08/18 11:48 07/08/18 11:48 07/08/18 11:48 Oxygen Delivery Method Room Air Weight: 91.1 kg Body Mass Index (BMI) 34.4 Microbiology Past 72 Hours 07/08/18 08:51 Influenza Types A,B Direct FA (DEMETRIO) - Final Mucosa - Nasopharyngeal Influenzae A Laboratory Tests Past 24 Hrs 07/08/18 07/08/18 07/08/18 09:15 09:15 09:15 WBC 7.0 RBC 4.93 Hgb 15.2 H Hct 46.0 MCV 93.3 MCH 30.8 MCHC 33.0 RDW 14.5 RDW Differential 48.1 H Plt Count 259 MPV 9.6 Immature Gran % (Auto) 0.300 Neut % (Auto) 77.6 H Lymph % (Auto) 13.7 L [place] % (Auto) 8.0 Eos % (Auto) 0.3 Baso % (Auto) 0.1 Absolute Neuts (auto) 5.5 Absolute Lymphs (auto) 0.96 Total Counted Not Reportable Sodium 136 Potassium 4.1 Chloride 99 Carbon Dioxide 29.0 Anion Gap 8 BUN 14 Creatinine 0.82 Estim Creat Clear Calc 46.46 Est GFR (MDRD) Af Amer 86 Est GFR (MDRD) Non-Af 71 BUN/Creatinine Ratio 17.1 Glucose 107 H Lactic Acid 1.9 Calcium 9.3 Troponin I < 0.015 Urine Color Urine Clarity Urine pH Ur Specific [place] Urine Protein Urine Glucose (UA) Urine Ketones Urine Occult Blood Urine Nitrite Urine Bilirubin Urine Urobilinogen Ur Leukocyte Esterase Urine RBC Urine WBC Ur Squamous Epith Cells Urine Bacteria Urine Mucus 07/08/18 10:15 WBC RBC Hgb Hct MCV MCH MCHC RDW RDW Differential Plt Count MPV Immature Gran % (Auto) Neut % (Auto) Lymph % (Auto) [place] % (Auto) Eos % (Auto) Baso % (Auto) Absolute Neuts (auto) Absolute Lymphs (auto) Total Counted Sodium Potassium Chloride Carbon Dioxide Anion Gap BUN Creatinine Estim Creat Clear Calc Est GFR (MDRD) Af Amer Est GFR (MDRD) Non-Af BUN/Creatinine Ratio Glucose Lactic Acid Calcium Troponin I Urine Color Yellow Urine Clarity Sl. Cloudy Urine pH 8.0 Ur Specific [place] 1.015 Urine Protein Negative Urine Glucose (UA) Normal Urine Ketones Negative Urine Occult Blood 10 H Urine Nitrite Negative Urine Bilirubin Negative Urine Urobilinogen Normal Ur Leukocyte Esterase Negative Urine RBC 0-5 SEEN Urine WBC 0 SEEN Ur Squamous Epith Cells 0 SEEN Urine Bacteria 2+ Urine Mucus 0 SEEN Assessment/Plan All Active Problems Encephalopathy (Acute) UTI (urinary tract infection) (Acute) Acute bronchitis due to Haemophilus influenzae (Acute) 82 year old F with past medical history of type II DM, hypertension, hyperlipidemia, obesity who comes in with complaints of generalized weakness and cough ongoing for a couple of days. 1. Debility to acute influenza A, stable vitals Plan: Admit to Med surg, IV fluids, PT/OT 2. Acute bronchitis secondary acute influenza A, started on Tamiflu, will continue same, breathing treatments prn. 3. Type 2 DM, on metformin, will hold metformin, continue on accucheks and ISS 4. Hypertension, fairly uncontrolled, on amlodipine, atenolol, clonidine, isosorbide 5. Hyperlipidemia, on statin 6. Obesity, BMI 34.5, diet and exercises were recommended 7. DVT PPx-Lovenox SC Code Visit OBSV E&M: 71821 Initial observation care L3
--- NOTE | 2018-07-08 13:18 | HP.PCM_ITS ---
Problem List (1) Acute bronchitis due to Haemophilus influenzae Status: Acute (2) GERD (gastroesophageal reflux disease) Status: Chronic Qualifiers: Qualified Code(s): K21.9 - Gastro-esophageal reflux disease without esophagitis (3) Chronic obstructive pulmonary disease (COPD) Status: Chronic Qualifiers: COPD type: unspecified COPD (4) Hypothyroidism Status: Chronic Qualifiers: Hypothyroidism type: unspecified (5) Obesity (BMI 30-39.9) Status: Chronic (6) HLD (hyperlipidemia) Status: Chronic Qualifiers: Hyperlipidemia type: unspecified Qualified Code(s): E78.5 - Hyperlipidemia, unspecified (7) HTN (hypertension) Status: Chronic Qualifiers: Hypertension type: essential hypertension (8) Diabetes mellitus, type II Status: Chronic Qualifiers: Diabetes mellitus detention insulin use: without director long term care use Diabetes mellitus complication status: with unspecified complications Qualified Code(s): E11.8 - Type 2 diabetes mellitus with unspecified complications (9) Anxiety and depression Status: Chronic History of Present Illness Date of Admission: 07/08/18 Chief Complaint: Generalised weakness, cough - 2 days The patient is a 82 year old F with past medical history of type II DM, hypertension, hyperlipidemia, obesity who comes in with complaints of generalized weakness and cough ongoing for a Couple of days. Patient complains of subjective fever and chills but no nausea or vomiting. She felt very weak. In the past she has history of recurrent UTIs and this felt almost the same. She could not walk, felt very weak. She complains of feeling unwell since April 2018. Had had a cold several times. The latest symptoms have been a c ouple of days ago. Vitals in the ED show temperature of 90 8.1F, blood pressure 133/60, heart rate of 74, respiratory is 18, SPO2 is 94% on room air. Her admitting blood work showed RBC count of 7.0, Hb 15.2, platelet count of 259, BMP was unremarkable. UA was also unremarkable. Admitting chest x-ray was negative for any acute cardiopulmonary process. Respiratory panel showed acute influenza A. Past Medical History Past Medical History (Chronic Problems): Chronic Problems GERD (gastroesophageal reflux disease) (Chronic) Chronic obstructive pulmonary disease (COPD) (Chronic) Hypothyroidism (Chronic) Obesity (BMI 30-39.9) (Chronic) HLD (hyperlipidemia) (Chronic) HTN (hypertension) (Chronic) Diabetes mellitus, type II (Chronic) Anxiety and depression (Chronic) Elevated liver enzymes (Chronic) Allergies hydrocodone bitartrate [From Vicodin] Adverse Reaction (Verified 10/06/17 08:35) Other oxycodone HCl [From Percocet] Adverse Reaction (Verified 10/06/17 08:35) Other Home Medications: Ambulatory Orders Medication Instructions Recorded Amlodipine Besylate 2.5 mg PO QHS 07/10/15 Aspirin E.C. [Ecotrin] 81 mg PO QHS 07/10/15 Atenolol [Tenormin] 100 mg PO QHS 07/10/15 Atorvastatin Calcium [Lipitor] 20 mg PO QHS 07/10/15 Clonidine HCl 0.1 mg PO QHS 07/10/15 Hydrochlorothiazide [Hctz] 25 mg PO DAILY 07/10/15 Isosorbide DN [Isordil] 7.5 mg PO TIDCM 07/10/15 Levothyroxine [Synthroid] 112 mcg PO SUMOTUWETHFR 07/10/15 Levothyroxine [Synthroid] 224 mcg PO SA 07/10/15 Mometasone/Formoterol [Dulera 200 2 puff INHALATION BID 07/10/15 Mcg/5 Mcg Inhaler] Montelukast [Singulair] 10 mg PO QHS 07/10/15 Cholecalciferol (Vitamin D3) 4,000 unit PO DAILY 02/15/17 [Vitamin D3] Fexofenadine HCl [Yelena Allergy] 180 mg PO QHS 02/15/17 Gabapentin [Neurontin] 300 mg PO QHS 02/16/17 Metformin(XR) [Glucophage Xr] 500 mg PO DAILY 06/02/17 Mometasone Furoate [Nasonex] 2 spray NASAL DAILY 10/06/17 Loperamide [Imodium] 2 mg PO Q2H PRN PRN capsule 10/08/17 Ascorbic Acid [Vitamin C] 1,000 mg PO QHS 07/08/18 Cranberry Fruit Concentrate [Azo 1 tab PO BID 07/08/18 Cranberry] Duloxetine Hcl [Cymbalta] 30 mg PO QHS 07/08/18 Esomeprazole Mag Trihydrate 40 mg PO BID 07/08/18 [Nexium] Guaifenesin [Mucinex] 1,200 mg PO BID 07/08/18 Meclizine HCl 12.5 mg PO TID PRN 07/08/18 Methenamine Hippurate 1 gm PO QHS 07/08/18 Surgical History: - - Total hystectomy, appendectomy, lumbar surgery, left parti al knee replacement, left mastectomy with lymph node dissection. Psychiatric History: Anxiety, Depression CUSTOMER SUPPORT ANALYST History: No pertinent CUSTOMER SUPPORT ANALYST history Lives: Spouse/ Significant Other Smoking Status: Former smoker Tobacco Use: Cigarettes Alcohol: None Drugs: None - *Family History Maternal History Items: No pertinent history Paternal History Items: Heart Disease Review of Systems Constitutional: Reports: Anorexia, Chills, Fever, Weakness. Denies: Night Sweats, Weight Change Eyes: Denies: Blurred vision, Cataracts, Pain, Redness HEENT: Reports: Nasal Congestion, Sore Throat. Denies: Difficulty Hearing, Difficulty Swallowing, Head Aches, Hearing Changes, Sinus Congestion, Sinus Drainage Cardiovascular: Denies: Chest Pain, Claudication, Orthopnea, Palpitations, Paroxysmal Noc. Dyspnea Respiratory: Reports: Shortness of breath at rest, Shortness of breath upon exertion. Denies: Cough, Hemoptysis, Sputum production Gastrointestinal: Denies: Abdominal Pain, Nausea, Vomiting Genitourinary: Denies: Dysuria, Frequency, Incontinence Musculoskeletal: Denies: Joint Pain, Joint stiffness, Joint swelling, Joint Tenderness Skin: Denies: Rash, Wounds Neurological: Denies: Difficulty swallowing, Focal weakness, Numbness, Tingling Psychiatric: Denies: Anxiety, Depression, Homicidal Ideations, Suicidal Ideations Hematologic/ Lymphatic: Denies: Easy Bruising, Easy Bleeding VTE Information - Inpt Only VTE Present on Admission: No VTE Pharm Prophylaxis ordered?: Yes Patient Problems: Active and Suspected Problems Acute bronchitis due to Haemophilus influenzae (Acute) - Physical Exam General: Alert, Oriented x3, Cooperative, No apparent distress HEENT: Atraumatic, PERRLA, EOMI, Normocephalic Oral: Moist Mucosa Neck: Supple, No JVD, Negative Carotid Bruits Lungs: Clear to auscultation, Normal air movement Cardiovascular: Regular rate, Regular Rhythm, Normal S1, Normal S2, No murmurs Abdomen: Bowel Sounds Present, Soft, Non Tender, Non-Distended, No Hepato- splenomegaly Extremities: No edema Skin: No rashes, No breakdown Musculoskeletal: No Tenderness to Palpation of Joints or Extremities Lymphatic: No Cervical, Supraclavicular, or Inguinal Adenopathy Neurological: Cranial nerves II-XII grossly intact, Neuro grossly intact Psych/Mental Status: Normal Affect, Appropriate Vital Signs Temp Pulse Resp BP Pulse Ox 99.4 F H 79 18 145/64 H 95 07/08/18 11:48 07/08/18 11:48 07/08/18 11:48 07/08/18 11:48 07/08/18 11:48 Oxygen Delivery Method Room Air Weight: 91.1 kg Body Mass Index (BMI) 34.4 Microbiology Past 72 Hours 07/08/18 08:51 Influenza Types A,B Direct FA (DEMETRIO) - Final Mucosa - Nasopharyngeal Influenzae A Laboratory Tests Past 24 Hrs 07/08/18 07/08/18 07/08/18 09:15 09:15 09:15 WBC 7.0 RBC 4.93 Hgb 15.2 H Hct 46.0 MCV 93.3 MCH 30.8 MCHC 33.0 RDW 14.5 RDW Differential 48.1 H Plt Count 259 MPV 9.6 Immature Gran % (Auto) 0.300 Neut % (Auto) 77.6 H Lymph % (Auto) 13.7 L [place] % (Auto) 8.0 Eos % (Auto) 0.3 Baso % (Auto) 0.1 Absolute Neuts (auto) 5.5 Absolute Lymphs (auto) 0.96 Total Counted Not Reportable Sodium 136 Potassium 4.1 Chloride 99 Carbon Dioxide 29.0 Anion Gap 8 BUN 14 Creatinine 0.82 Estim Creat Clear Calc 46.46 Est GFR (MDRD) Af Amer 86 Est GFR (MDRD) Non-Af 71 BUN/Creatinine Ratio 17.1 Glucose 107 H Lactic Acid 1.9 Calcium 9.3 Troponin I < 0.015 Urine Color Urine Clarity Urine pH Ur Specific [place] Urine Protein Urine Glucose (UA) Urine Ketones Urine Occult Blood Urine Nitrite Urine Bilirubin Urine Urobilinogen Ur Leukocyte Esterase Urine RBC Urine WBC Ur Squamous Epith Cells Urine Bacteria Urine Mucus 07/08/18 10:15 WBC RBC Hgb Hct MCV MCH MCHC RDW RDW Differential Plt Count MPV Immature Gran % (Auto) Neut % (Auto) Lymph % (Auto) [place] % (Auto) Eos % (Auto) Baso % (Auto) Absolute Neuts (auto) Absolute Lymphs (auto) Total Counted Sodium Potassium Chloride Carbon Dioxide Anion Gap BUN Creatinine Estim Creat Clear Calc Est GFR (MDRD) Af Amer Est GFR (MDRD) Non-Af BUN/Creatinine Ratio Glucose Lactic Acid Calcium Troponin I Urine Color Yellow Urine Clarity Sl. Cloudy Urine pH 8.0 Ur Specific [place] 1.015 Urine Protein Negative Urine Glucose (UA) Normal Urine Ketones Negative Urine Occult Blood 10 H Urine Nitrite Negative Urine Bilirubin Negative Urine Urobilinogen Normal Ur Leukocyte Esterase Negative Urine RBC 0-5 SEEN Urine WBC 0 SEEN Ur Squamous Epith Cells 0 SEEN Urine Bacteria 2+ Urine Mucus 0 SEEN Assessment/Plan All Active Problems Encephalopathy (Acute) UTI (urinary tract infection) (Acute) Acute bronchitis due to Haemophilus influenzae (Acute) 82 year old F with past medical history of type II DM, hypertension, hyperlipidemia, obesity who comes in with complaints of generalized weakness and cough ongoing for a couple of days. 1. Debility to acute influenza A, stable vitals Plan: Admit to Med surg, IV fluids, PT/OT 2. Acute bronchitis secondary acute influenza A, started on Tamiflu, will continue same, breathing treatments prn. 3. Type 2 DM, on metformin, will hold metformin, continue on accucheks and ISS 4. Hypertension, fairly uncontrolled, on amlodipine, atenolol, clonidine, isosorbide 5. Hyperlipidemia, on statin 6. Obesity, BMI 34.5, diet and exercises were recommended 7. DVT PPx-Lovenox SC Code Visit OBSV E&M: 64559 Initial observation care L3
[2018-07-08] MEDS: 0.9% Normal Saline 1,000 ML 75 ML IV (14:55)
[2018-07-08] MEDS: Isosorbide DN 10 MG Tablet 7.5 MG PO (14:55)
[2018-07-08] MEDS: Acetaminophen 325 MG Tablet 650 MG PO ×2 (14:57→21:29)
--- NOTE | 2018-07-08 15:48 | CASEMGMT ---
RN KRISTYN ELECTRICAL PROSPECTING ENGINEER CM to room to meet with patient for initial transition planning/care coordination assessment. MARIANNE SIMONS introduced self and role at [facility]. Pt voices understanding and consents to assessment at this time. Pt resting in bed in no distress at this time. Pt is A/O at this time and answers all questions appropriately. Care providers, pharmacy, and demographics verified at this time. PCP: Linda Specialists: [facility] Pharmacy: [facility] Insurance: [facility], [employer] Prescription Benefit: AARP Living Will/HPOA: Has both LW and HCPOA who is her daughter, Sena. AD not found on e-chart. Pt states she will ask her dtr to bring in papers if she has them. Living Arrangements: Lives with . States is independent w/personal ADL's. does home mgmt tasks. Transportation: . Denies transportation concerns. DME: States has the following DME: Shower chair, cane, Walker, rollator, W/C Pt states no need for further DME at this time. HHC/SNF: Has never been to a SNF. Has used HHC in the past but does not remember name of agency. PT/OT notes reviewed and further therapy recommended. Discussed Out-pt therapy or HHC with pt. Pt states she does not want HHC but is agreeable to Out-pt therapy @ [facility]. Pt wishes to return home and states has no concerns with going home at time of discharge. CM to follow for discharge planning/needs. Pt voices no further concerns/needs at this time. Advised pt to ask for CM if any further questions/concerns/needs arise. Voices understanding. PLAN: Home Shan ALEXANDER RN, CM
[2018-07-08 16:26] LABS: Bedside Glucose 121 mg/dL (70-110)
[2018-07-08] MEDS: Budesonide Respules 0.5 MG/2 ML AMPUL.NEB. INHALATION (19:01)
[2018-07-08] MEDS: Ipratropium/Albuterol Sulfate 3 ML AMPUL.NEB INHALATION (19:01)
[2018-07-08] MEDS: Aspirin E.C. 81 MG Tablet PO (21:25)
[2018-07-08] MEDS: Oseltamivir Phosphate 30 MG Capsule PO (21:26)
[2018-07-08] MEDS: Atenolol 100 MG Tablet PO (21:26)
[2018-07-08] MEDS: Pantoprazole Sodium 40 MG Tablet PO (21:26)
[2018-07-08] MEDS: Ascorbic Acid 500 MG Tablet 1000 MG PO (21:27)
[2018-07-08] MEDS: cloNIDine HCl 0.1 MG Tablet PO (21:27)
[2018-07-08] MEDS: Atorvastatin Calcium 20 MG Tablet PO (21:27)
[2018-07-08] MEDS: Loratadine 10 MG Tablet PO (21:27)
[2018-07-08] MEDS: Gabapentin 300 MG Capsule PO (21:27)
[2018-07-08] MEDS: Montelukast 10 MG Tablet PO (21:27)
[2018-07-08] MEDS: amLODIPine 2.5 MG Tablet PO (21:27)
[2018-07-08] MEDS: guaiFENesin 1,200 MG Tablet 1200 MG PO (21:28)
[2018-07-08] MEDS: DULoxetine Hcl 30 MG Capsule PO (21:28)
[2018-07-08 21:40] LABS: Bedside Glucose 102 mg/dL (70-110)
[2018-07-08] MEDS: Benzonatate 100 MG Capsule 200 MG PO (22:40)
[2018-07-09 02:28] VITALS: BP 123/41; PULSE 57; RESP 16; TEMP 37.3; O2SAT 96
[2018-07-09 02:29] VITALS: O2SAT 96
[2018-07-09 06:33] LABS: Absolute Lymphocyte Count 1.26 X10^3/ul (0.83-4.51); Absolute Neutrophil Count 2.1 X10^3/uL (2.0-7.7); Basophil# 0.01 X10^3/uL; Basophil% 0.2 % (0-1); Eosinophil# 0.01 X10^3/uL; Eosinophils% 0.2 % (0-5); Hematocrit 41.1 % (37-47); Hemoglobin 13.2 g/dl (12.0-15.0); Lymphocyte # 1.26 X10^3/ul (4.0); Lymphocyte % 30.9 % (19-41); Mean Corp Hgb Conc 32.1 g/gl (32-36); Mean Corpuscular Hgb 30.1 pg (27.0-32.0); Mean Corpuscular Volume 93.8 fL (81-99); Mean Platelet Vol. 9.5 fl (6.2-12.0); Monocyte# 0.72 X10^3/uL; Monocyte% 17.6 % (0-10); Neutrophil # 2.05 X10^3/uL (2.7-7.7); Neutrophil % 50.4 % (47-70); Platelet Count 200 K/mm3 (150-450); RBC Distribution Width CV 14.6 % (11.6-14.6); RBC Distribution Width SD 48.2 fl (35.1-43.9); Red Blood Count 4.38 M/mm3 (4.2-5.4); White Blood Count 4.1 K/mm3 (4.4-11.0)
[2018-07-09 06:35] LABS: POSITIVE COUNT NO; POSITIVE DIFFERENTIAL NO; POSITIVE MORPHOLOGY NO
[2018-07-09 06:36] LABS: Bedside Glucose 130 mg/dL (70-110)
[2018-07-09] MEDS: Levothyroxine 112 MCG Tablet PO (06:36)
[2018-07-09] MEDS: Benzonatate 100 MG Capsule 200 MG PO (06:36)
[2018-07-09 06:53] LABS: Anion Gap 7 (5-15); BUN 11 mg/dL (7-18); BUN/Creat Ratio 16.4 RATIO (10-20); Calcium,Total 8.7 mg/dL (8.5-10.1); Chloride 109 mmol/L (98-107); Creatinine, Serum 0.67 mg/dL (0.55-1.02); EST Glomerular Filtration Rate 89 mL/min (>60); Est Glom Filt Rate - Afr Amer 108 mL/min (>60); Glucose 121 mg/dL (74-106); Sodium Level 141 mmol/L (136-145)
[2018-07-09 06:54] VITALS: PULSE 78; RESP 20
[2018-07-09] MEDS: Budesonide Respules 0.5 MG/2 ML AMPUL.NEB. INHALATION (06:54)
[2018-07-09] MEDS: Ipratropium/Albuterol Sulfate 3 ML AMPUL.NEB INHALATION (06:55)
[2018-07-09 08:30] VITALS: BP 111/50; PULSE 59; RESP 18; TEMP 36.9; O2SAT 97
--- NOTE | 2018-07-09 08:41 | DCINST_ITS ---
- Discharge Diagnoses Current Active Problems: Current Active and Chronic Problems Acute bronchitis due to Haemophilus influenzae (Acute) Reason(s) for Visit for Discharge Instructions: Generalised weakness You will use the following diet at home:: Calorie/Carbohydrate Controlled (specify 1200, 1400, etc), Cardiac Your food should be the consistency of: Regular Your liquids should be the consistency of: Regular/Thin Discharge Activity: Return to Normal Activity Call your doctor if you observe: Fever of 101 or Higher, Shortness of breath, Dizziness Additional Instructions: Complete your Tamiflu. Continue to keep yourself hydrated. Use your inhaler as needed for shortness of breath or wheezes. Follow- up with your primary doctor within 1-2 weeks. Allergies/Adverse Reactions: Allergies hydrocodone bitartrate [From Vicodin] Adverse Reaction (Verified 10/06/17 08:35) Other oxycodone HCl [From Percocet] Adverse Reaction (Verified 10/06/17 08:35) Other Medications to take at Discharge Amlodipine Besylate 2.5 mg PO QHS 07/10/15 Aspirin E.C. [Ecotrin] 81 mg PO QHS 07/10/15 Atenolol [Tenormin] 100 mg PO QHS 07/10/15 Atorvastatin Calcium [Lipitor] 20 mg PO QHS 07/10/15 Clonidine HCl 0.1 mg PO QHS 07/10/15 Hydrochlorothiazide [Hctz] 25 mg PO DAILY 07/10/15 Isosorbide DN [Isordil] 7.5 mg PO TIDCM 07/10/15 Levothyroxine [Synthroid] 112 mcg PO SUMOTUWETHFR 07/10/15 Levothyroxine [Synthroid] 224 mcg PO SA 07/10/15 Mometasone/Formoterol [Dulera 200 Mcg/5 Mcg Inhaler] 2 puff INHALATION BID 07/10/15 Montelukast [Singulair] 10 mg PO QHS 07/10/15 Cholecalciferol (Vitamin D3) [Vitamin D3] 4,000 unit PO DAILY 02/15/17 Fexofenadine HCl [Yelena Allergy] 180 mg PO QHS 02/15/17 Gabapentin [Neurontin] 300 mg PO QHS 02/16/17 Metformin(XR) [Glucophage Xr] 500 mg PO DAILY 06/02/17 Mometasone Furoate [Nasonex] 2 spray NASAL DAILY 10/06/17 Loperamide [Imodium] 2 mg PO Q2H PRN PRN capsule 10/08/17 Ascorbic Acid [Vitamin C] 1,000 mg PO QHS 07/08/18 Cranberry Fruit Concentrate [Azo Cranberry] 1 tab PO BID 07/08/18 Duloxetine Hcl [Cymbalta] 30 mg PO QHS 07/08/18 Esomeprazole Mag Trihydrate [Nexium] 40 mg PO BID 07/08/18 Guaifenesin [Mucinex] 1,200 mg PO BID 07/08/18 Meclizine HCl 12.5 mg PO TID PRN 07/08/18 Methenamine Hippurate 1 gm PO QHS 07/08/18 Benzonatate [Tessalon Perle] 200 mg PO TID #15 capsule 07/09/18 Oseltamivir Phosphate [Tamiflu] 30 mg PO BID #7 capsule 07/09/18 The following prescriptions were given: Oseltamivir Phosphate [Tamiflu] 30 mg PO BID #7 capsule Benzonatate [Tessalon Perle] 200 mg PO TID #15 capsule Primary Care Physician: Carin Mckeon DO [Primary Care Provider] - Please follow up with your Primary Care Physician in: within 1-2 weeks Test Results: Test results from this visit will be discussed in further detail at your follow- up appointment, if applicable. Proposed Discharge Date: 07/09/18
--- NOTE | 2018-07-09 08:41 | PCM.DC.SUM ---
Discharge Date and Diagnosis - Problem List Patient Problems: Active and Suspected Problems Acute bronchitis due to Haemophilus influenzae (Acute) Date of Admission: 07/08/18 Date of Discharge: 07/09/18 - Primary Discharge Diagnosis Active and Suspected Problems Acute bronchitis due to Acute influenza A(Acute) Debility - Secondary Discharge Diagnosis Chronic Problems GERD (gastroesophageal reflux disease) (Chronic) Chronic obstructive pulmonary disease (COPD) (Chronic) Hypothyroidism (Chronic) Obesity (BMI 30-39.9) (Chronic) HLD (hyperlipidemia) (Chronic) HTN (hypertension) (Chronic) Diabetes mellitus, type II (Chronic) Anxiety and depression (Chronic) Elevated liver enzymes (Chronic) Hospital Course and Treatment Imaging Results: Clinical Impression(s) from Imaging Studies Chest X-Ray 07/08/18 08:30 IMPRESSION: No acute abnormality is seen. Electronically Signed: Shai Gonzalez MD at 9:17 EST , Service support , None Operations: None Procedures: None Summary of Care Provided: 82 year old F with past medical history of type II DM, hypertension, hyperlipidemia, obesity who comes in with complaints of generalized weakness and cough ongoing for a couple of days. Patient was found to be positive for acute influenza A. She was started on Tamiflu, gentle hydration. She improved, was not on oxygen. She was seen by PT/OT and skilled for outpatient therapy at [facility]. She was stable at discharge Patient Problems: Active and Suspected Problems Acute bronchitis due to Haemophilus influenzae (Acute) Subjective: On the day of discharge, she felt improved, denied any nausea, vomiting, diarrhea, fever or chills. - Physical Exam General: Alert, Oriented x3, Cooperative, No apparent distress HEENT: Atraumatic, PERRLA, EOMI, Normocephalic Neck: Supple, No JVD, Negative Carotid Bruits Lungs: Clear to auscultation, Normal air movement Cardiovascular: Regular rate, Regular Rhythm, Normal S1, Normal S2, No murmurs Abdomen: Bowel Sounds Present, Soft, Non Tender, Non-Distended Extremities: No edema Skin: No rashes, No breakdown Musculoskeletal: No Tenderness to Palpation of Joints or Extremities Lymphatic: No Cervical, Supraclavicular, or Inguinal Adenopathy Neurological: Cranial nerves II-XII grossly intact, Neuro grossly intact Psych/Mental Status: Normal Affect, Appropriate Vital Signs Temp Pulse Resp BP Pulse Ox 99.1 F 57 L 16 123/41 H 96 07/09/18 02:28 07/09/18 02:28 07/09/18 02:28 07/09/18 02:28 07/09/18 02:29 Oxygen Delivery Method Room Air Weight: 90.9 kg Body Mass Index (BMI) 34.4 Intake and Output for Last 24 Hours 07/07/18 07/08/18 07/09/18 23:59 23:59 23:59 Intake Total 724 / 724 901 / 901 Output Total 700 / 700 700 / 700 Balance 201 / 201 Microbiology Past 72 Hours 07/08/18 08:51 Influenza Types A,B Direct FA (DEMETRIO) - Final Mucosa - Nasopharyngeal Influenzae A Laboratory Tests Past 24 Hrs 07/08/18 07/08/18 07/08/18 09:15 09:15 09:15 WBC 7.0 RBC 4.93 Hgb 15.2 H Hct 46.0 MCV 93.3 MCH 30.8 MCHC 33.0 RDW 14.5 RDW Differential 48.1 H Plt Count 259 MPV 9.6 Immature Gran % (Auto) 0.300 Neut % (Auto) 77.6 H Lymph % (Auto) 13.7 L [place] % (Auto) 8.0 Eos % (Auto) 0.3 Baso % (Auto) 0.1 Absolute Neuts (auto) 5.5 Absolute Lymphs (auto) 0.96 Total Counted Not Reportable Sodium 136 Potassium 4.1 Chloride 99 Carbon Dioxide 29.0 Anion Gap 8 BUN 14 Creatinine 0.82 Estim Creat Clear Calc 46.46 Est GFR (MDRD) Af Amer 86 Est GFR (MDRD) Non-Af 71 BUN/Creatinine Ratio 17.1 Glucose 107 H Lactic Acid 1.9 Calcium 9.3 Troponin I < 0.015 Urine Color Urine Clarity Urine pH Ur Specific [place] Urine Protein Urine Glucose (UA) Urine Ketones Urine Occult Blood Urine Nitrite Urine Bilirubin Urine Urobilinogen Ur Leukocyte Esterase Urine RBC Urine WBC Ur Squamous Epith Cells Urine Bacteria Urine Mucus 07/08/18 07/09/18 07/09/18 10:15 06:10 06:10 WBC 4.1 L RBC 4.38 Hgb 13.2 Hct 41.1 MCV 93.8 MCH 30.1 MCHC 32.1 RDW 14.6 RDW Differential 48.2 H Plt Count 200 MPV 9.5 Immature Gran % (Auto) 0.700 Neut % (Auto) 50.4 Lymph % (Auto) 30.9 [place] % (Auto) 17.6 H Eos % (Auto) 0.2 Baso % (Auto) 0.2 Absolute Neuts (auto) 2.1 Absolute Lymphs (auto) 1.26 Total Counted Not Reportable Sodium 141 Potassium 4.0 Chloride 109 H Carbon Dioxide 25.0 Anion Gap 7 BUN 11 Creatinine 0.67 Estim Creat Clear Calc 38.10 Est GFR (MDRD) Af Amer 108 Est GFR (MDRD) Non-Af 89 BUN/Creatinine Ratio 16.4 Glucose 121 H Lactic Acid Calcium 8.7 Troponin I Urine Color Yellow Urine Clarity Sl. Cloudy Urine pH 8.0 Ur Specific [place] 1.015 Urine Protein Negative Urine Glucose (UA) Normal Urine Ketones Negative Urine Occult Blood 10 H Urine Nitrite Negative Urine Bilirubin Negative Urine Urobilinogen Normal Ur Leukocyte Esterase Negative Urine RBC 0-5 SEEN Urine WBC 0 SEEN Ur Squamous Epith Cells 0 SEEN Urine Bacteria 2+ Urine Mucus 0 SEEN POC Glucose 07/09/18 07/08/18 07/08/18 06:32 21:21 16:09 POC Glucose 130 H 102 121 H Discharge Diet: Low fat/ Low Cholesterol, 2000 mg Sodium Diet, Carb Control Diet Discharge Activity: Return to Normal Activity Call your doctor if you observe: Fever of 101 or Higher, Shortness of breath, Dizziness Home Medications: Medications to take at Discharge Amlodipine Besylate 2.5 mg PO QHS 07/10/15 Aspirin E.C. [Ecotrin] 81 mg PO QHS 07/10/15 Atenolol [Tenormin] 100 mg PO QHS 07/10/15 Atorvastatin Calcium [Lipitor] 20 mg PO QHS 07/10/15 Clonidine HCl 0.1 mg PO QHS 07/10/15 Hydrochlorothiazide [Hctz] 25 mg PO DAILY 07/10/15 Isosorbide DN [Isordil] 7.5 mg PO TIDCM 07/10/15 Levothyroxine [Synthroid] 112 mcg PO SUMOTUWETHFR 07/10/15 Levothyroxine [Synthroid] 224 mcg PO SA 07/10/15 Mometasone/Formoterol [Dulera 200 Mcg/5 Mcg Inhaler] 2 puff INHALATION BID 07/10/15 Montelukast [Singulair] 10 mg PO QHS 07/10/15 Cholecalciferol (Vitamin D3) [Vitamin D3] 4,000 unit PO DAILY 02/15/17 Fexofenadine HCl [Yelena Allergy] 180 mg PO QHS 02/15/17 Gabapentin [Neurontin] 300 mg PO QHS 02/16/17 Metformin(XR) [Glucophage Xr] 500 mg PO DAILY 06/02/17 Mometasone Furoate [Nasonex] 2 spray NASAL DAILY 10/06/17 Loperamide [Imodium] 2 mg PO Q2H PRN PRN capsule 10/08/17 Ascorbic Acid [Vitamin C] 1,000 mg PO QHS 07/08/18 Cranberry Fruit Concentrate [Azo Cranberry] 1 tab PO BID 07/08/18 Duloxetine Hcl [Cymbalta] 30 mg PO QHS 07/08/18 Esomeprazole Mag Trihydrate [Nexium] 40 mg PO BID 07/08/18 Guaifenesin [Mucinex] 1,200 mg PO BID 07/08/18 Meclizine HCl 12.5 mg PO TID PRN 07/08/18 Methenamine Hippurate 1 gm PO QHS 07/08/18 Benzonatate [Tessalon Perle] 200 mg PO TID #15 capsule 07/09/18 Oseltamivir Phosphate [Tamiflu] 30 mg PO BID #7 capsule 07/09/18 Following Prescrptions Were Given to Patient: Oseltamivir Phosphate [Tamiflu] 30 mg PO BID #7 capsule Benzonatate [Tessalon Perle] 200 mg PO TID #15 capsule Primary Care Physician: Carin Mckeon DO [Primary Care Provider] - Please follow up with your Primary Care Physician in: within 1-2 weeks Disposition: Home Minutes spent on discharge:: 40 Medical Necessity - Tobacco Use Smoking Status: Former smoker Tobacco Use: Cigarettes Meaningful Use Info Meaningful Use Diagnoses (Choose all that apply): None applicable Code Visit OBSV E&M: 43702 Observation care discharge
[2018-07-09] MEDS: Isosorbide DN 10 MG Tablet 7.5 MG PO ×2 (09:29→12:48)
[2018-07-09 10:00] VITALS: O2SAT 96
[2018-07-09] MEDS: guaiFENesin 1,200 MG Tablet 1200 MG PO (10:04)
[2018-07-09] MEDS: Acetaminophen 325 MG Tablet 650 MG PO (10:04)
[2018-07-09] MEDS: hydroCHLOROthiazide 25 MG Tablet PO (10:05)
[2018-07-09] MEDS: Oseltamivir Phosphate 30 MG Capsule PO (10:05)
[2018-07-09] MEDS: Enoxaparin 40 MG/0.4 ML Syringe SC (10:14)
[2018-07-09] MEDS: Fluticasone 0.05% 1 SPRAY NASAL.SRY 2 SPRAY NASAL (10:14)
[2018-07-09] MEDS: Pantoprazole Sodium 40 MG Tablet PO (10:15)
[2018-07-09 11:45] LABS: Bedside Glucose 139 mg/dL (70-110)
[2018-07-09 12:52] VITALS: BP 138/66; PULSE 74; RESP 18; TEMP 36.9; O2SAT 98
== END 2018-07-09 13:17 | disposition home or self-care (01) ==
LOC: ED 10:57 → MS3 07-09 05:10
PROVIDERS: Admitting Provider Internal Medicine; Emergency Provider Emergency Medicine; Family Provider Internal Medicine; PCP Internal Medicine; Visit Provider Internal Medicine
DX: J44.0 Chronic obstructive pulmonary disease with (acute) lower respiratory infection (principal); J20.1 Acute bronchitis due to Hemophilus influenzae; K21.9 Gastro-esophageal reflux disease without esophagitis; E78.5 Hyperlipidemia, unspecified; E03.9 Hypothyroidism, unspecified; E66.9 Obesity, unspecified; I10 Essential (primary) hypertension; E11.9 Type 2 diabetes mellitus without complications; F41.9 Anxiety disorder, unspecified; F32.9 Major depressive disorder, single episode, unspecified; Z79.899 Other long term (current) drug therapy; Z68.34 Body mass index [BMI] 34.0-34.9, adult; Z71.3 Dietary counseling and surveillance; Z79.82 Long term (current) use of aspirin; Z79.84 Long term (current) use of oral hypoglycemic drugs; Z87.440 Personal history of urinary (tract) infections; Z87.891 Personal history of nicotine dependence
CPT/HCPCS: 36415; 71045; 80048; 81001; 82962; 83605; 84484; 85025; 87040; 87804; 93005; 94640; 96361; 96372; 96374; 97161; 97166; 99218; 99285; J7030; A4216; G0378; J2405

== ENCOUNTER → 2018-09-11 07:09 | Outpatient (CLI) | payer MEDICARE, OTHER, SELFPAY ==
[2018-07-08 11:48] VITALS: BMI 34.4
--- NOTE | 2018-09-11 07:22 | MRI_ITS ---
STUDY: MRA OF THE HEAD WITHOUT CONTRAST REASON FOR EXAM: Female, 82 years old. HAMMOND -- INTRACTABLE EPISODIC HAMMOND -- faint, dizziness,hammond x 3 months. TECHNIQUE: 3-D [id number] (TOF) imaging was performed with MIPs. The study was performed unenhanced. COMPARISON: None. FINDINGS: Normal bilateral petrous carotid arteries. Normal right cavernous carotid artery with a normal supraclinoid bifurcation. Normal left cavernous carotid artery with a normal supraclinoid bifurcation. Normal right A1 segments of the anterior cerebral artery. Normal left A1 segments of the anterior cerebral artery. Normal intact anterior communicating artery (ACOM). Normal bilateral A2 segments of the anterior cerebral arteries. Normal right M1 and M2 segments of the middle cerebral arteries, with a normal M1 bifurcation. Normal left M1 and M2 segments of the middle cerebral arteries, with a normal M1 bifurcation. Normal bilateral vertebral arteries. Normal basilar artery with a normal basilar bifurcation. The visualized bilateral superior cerebellar (SCA) arteries are normal. Normal bilateral P1, P2 and visualized P3 segments of the posterior cerebral arteries. There is no demonstrated aneurysm of the [place]. There is no major vessel occlusion or hemodynamically significant stenosis. There is no demonstrated abnormality of the visualized brain. MRI/MRA Head ONLY without Contrast IMPRESSION: Normal MRA of the head Electronically Signed: Srinath Mccarty MD at 16:05 EDT Tel , Service support ,
--- NOTE | 2018-09-11 07:22 | MRI_ITS ---
STUDY: MRI BRAIN WITH AND WITHOUT CONTRAST REASON FOR EXAM: Female, 82 years old. Headache, dizziness TECHNIQUE: Standardized multiplanar fat and water weighted pulse sequences were obtained. 19 IV Dotarem was administered for the contrast portion of the examination. COMPARISON: 01/07/2016 FINDINGS: Normal size of the ventricles and extra-axial spaces for the patient's age. There are multiple white matter hyperintensities, distributed throughout the deep white matter tracts of the cerebral hemispheres, consistent with moderate chronic white matter ischemic changes. Normal bilateral basal ganglia. Normal thalami. There is no extra-axial fluid accumulation. Normal flow voids within the major intracranial circulation suggesting patency by spin echo criteria. Normal venous enhancement. The previously described meningioma along the right frontal convexity has decreased in size. It now measures 14 mm transverse by 8 mm anteroposterior. Normal sella turcica, pituitary gland, infundibular stalk, optic chiasm and hypothalamus. Normal tectal plate and pineal gland. Normal midbrain, shari and medulla. Normal cerebellum. Normal basal cisterns. Normal bilateral temporal bones. Normal bilateral internal auditory canals. No demonstrated orbital abnormality, within the constraints of a routine brain study. Normal visualized paranasal sinuses. Normal calvarium and skull base. Normal visualized soft tissue structures. Normal visualized upper cervical spine. MRI/Brain W/WO Contrast IMPRESSION: Interval decrease in size of previously described right frontal meningioma. No associated local mass effect. Moderate microangiopathic white matter disease. No evidence of acute infarct or hemorrhage. Electronically Signed: Reuben Ureña MD at 18:07 EDT Tel , Service support ,
== END ==
PROVIDERS: Family Provider Internal Medicine; PCP Internal Medicine; Referring Provider Internal Medicine; Visit Provider Internal Medicine
DX: R51 Headache (principal); R55 Syncope and collapse
CPT/HCPCS: 70544; 70553; A9575

== ENCOUNTER → 2018-09-23 13:49 | Outpatient (CLI) | payer MEDICARE, OTHER, SELFPAY ==
[2018-07-08 11:48] VITALS: BMI 34.4
--- NOTE | 2018-09-23 13:53 | BI_ITS ---
MAMMOGRAPHY - UNILATERAL DIAGNOSTIC: RIGHT BREAST REASON FOR EXAM: Female, 82 years old. Prior left mastectomy and radiation treatment. PERTINENT HISTORY: Personal history of breast cancer. TECHNIQUE: Digital unilateral breast jm (3D mammographic acquisition) in the CC and MLO projections. 2-D mediolateral oblique (MLO) and craniocaudad (CC) views of both breasts were obtained. CAD: Full Field Digital Mammography with Computer Added Detection was performed. COMPARISON: Comparison is made with prior study dated September 22, 2017. FINDINGS: Breast Composition: The breasts are heterogeneously dense, which may obscure small masses. There are no dominant masses or suspicious calcifications. Persistent architectural distortion in the superior retroareolar region of the right breast. Prior history of a right excisional breast biopsy. Stable calcified nodule in the slightly upper lateral aspect of the right breast. No other significant abnormalities are identified. There has been no significant change since the prior study. BI/UNILAT RT SCRN W/CAD IMPRESSION: Stable unilateral diagnostic mammogram. One year follow-up mammogram recommended. (A) ASSESSMENT CATEGORY: BIRADS Category 2: Benign. A letter regarding these results will be sent to the patient by the facility within 30 days. Approximately 10% of breast cancers are not detected by mammography. A normal mammogram should not delay biopsy of a clinically suspicious abnormality. Electronically Signed: Shai Gonzalez, at 15:48 EDT , Service support ,
== END ==
PROVIDERS: Family Provider Internal Medicine; PCP Internal Medicine; Referring Provider Internal Medicine Hematology & Oncology; Visit Provider Internal Medicine Hematology & Oncology
DX: Z12.31 Encounter for screening mammogram for malignant neoplasm of breast (principal); C50.912 Malignant neoplasm of unspecified site of left female breast; Z17.1 Estrogen receptor negative status [ER-]
CPT/HCPCS: 77061; 77063; 77067; G0279

== ENCOUNTER → 2018-10-06 12:28 | Outpatient (CLI) | payer MEDICARE, OTHER, SELFPAY ==
[2018-07-08 11:48] VITALS: BMI 34.4
--- NOTE | 2018-10-06 12:33 | ECHOD_ITS ---
Reason For Study: Near Syncope Procedure This was a 2D Doppler, Color Flow transthoracic echocardiogram. Myocardial strain analysis was performed in this exam to aid in the assessment of cardiac function. Exam performed in department. Left Ventricle Mild concentric left ventricular hypertrophy. The estimated ejection fraction is 65 %. Stage 1 diastolic dysfunction. No regional wall motion abnormalities noted. Right Ventricle Normal size and thickness. Normal systolic function. Atria Normal left atrium. Normal right atrium. Normal atrial septum. Mitral Valve The mitral valve is structurally normal. No prolapse or stenosis seen. Mild (1+) mitral valve insufficiency. Tricuspid Valve Normal tricuspid valve. Mild (1+) tricuspid valve insufficiency. Right ventricular systolic pressure estimated to be 50 mmHg. Moderate pulmonary hypertension. Aortic Valve Normal aortic valve. Trisinus/trileaflet aortic valve. Pulmonic Valve Normal pulmonic valve. Great Vessels Normal aortic root. Normal arch. Normal inferior vena cava. Inferior vena cava collapse with sniff. Pericardium/Pleural No pericardial effusion. MMode/2D Measurements & Calculations LVIDd: 4.4 cm IVSd: 1.2 cm Ao root diam: 3.0 cm LVIDs: 2.5 cm LVPWd: 1.3 cm RVDd: 3.2 cm FS: 42.1 % LAV(MOD-bp): 44.7 ml LVAd ap4: 20.8 cm2 SV(MOD-sp4): 32.5 ml LAV(MOD-bp) Indexed: 22.8 ml/m2 EDV(MOD-sp4): 51.7 ml LAV(MOD-sp2): 48.3 ml EDV(sp4-el): 52.9 ml LAV(MOD-sp4): 38.8 ml LVAs ap4: 10.7 cm2 ESV(MOD-sp4): 19.2 ml ESV(sp4-el): 19.2 ml EF(MOD-sp4): 62.8 % EF(sp4-el): 63.7 % SV(sp4-el): 33.7 ml LA A4 area: 16.8 cm2 LA dimension(2D): 3.8 cm RA A4 area: 12.3 cm2 Doppler Measurements & Calculations MV E max eusebio: 81.9 cm/sec Lat Peak E' Eusebio: 5.7 cm/sec Med Peak E' Eusebio: 4.8 cm/sec MV A max eusebio: 112.1 cm/sec E/E' lat: 14.3 E/E' med: 16.9 MV E/A: 0.73 Ao V2 max: 165.6 cm/sec AI max eusebio: 462.3 cm/sec LV V1 max: 116.6 cm/sec Ao max P.0 mmHg AI max P.5 mmHg LV V1 max P.4 mmHg Ao V2 mean: 110.6 cm/sec Ao mean P.5 mmHg AI dec slope: 261.8 cm/sec2 Ao V2 VTI: 38.0 cm AI P1/2t: 517.1 msec PA V2 max: 123.3 cm/sec TR max eusebio: 335.5 cm/sec TR max P.0 mmHg Interpretation Summary The estimated ejection fraction is 65 %. Stage 1 diastolic dysfunction. Mild (1+) mitral valve insufficiency. Mild (1+) tricuspid valve insufficiency. Right ventricular systolic pressure estimated to be 50 mmHg. Moderate pulmonary hypertension. Compared to echo report dated 02/28/2015, LV function has remained the same and RVSP is slightly worse, increasing from 45 to 50 mm Hg. Ordering Physician: Carin Mckeon Referring Physician: Carin Mckeon Performed By: Marichuy Rodriguez, CECY, RVT
--- NOTE | 2018-10-06 12:33 | CDU_ITS ---
Reason For Study: Near syncope Rt. Velocities/BP Lt. Velocities/BP Prox CCA 83.8/8.2 cm/sec. Prox CCA 69.2/5.5 cm/sec. Mid CCA 81.2/13.4 cm/sec. Mid CCA 66.6/9.9 cm/sec. Dist CCA 61.7/10.8 cm/sec. Dist CCA 57/9.9 cm/sec. Prox ICA 71.1/10.7 cm/sec. Prox ICA 82.6/12.6 cm/sec. Mid ICA 77.6/10.4 cm/sec. Mid ICA 55.6/9.2 cm/sec. Dist ICA 73.5/13.3 cm/sec. Dist ICA 79/17.6 cm/sec. Rt. ICA/CCA = 1.00. Lt. ICA/CCA = 1.2. Prox ECA 98.2/3.0 cm/sec. Prox ECA 101.1/6.5 cm/sec. Rt. Vert. 60.4/7.2 cm/sec. Lt. Vert. 49.1/9.9 cm/sec. Right Extracranial There is homogeneous, smooth atherosclerotic plaque noted in the right common carotid artery. There is homogeneous, smooth atherosclerotic plaque noted in the right internal carotid artery. There is intimal thickening but no significant atherosclerotic plaque noted in the right external carotid artery. Antegrade flow is noted in the right vertebral artery. Left Extracranial There is homogeneous, smooth atherosclerotic plaque noted in the left common carotid artery. There is homogeneous, smooth atherosclerotic plaque noted in the left internal carotid artery. There is homogeneous, smooth atherosclerotic plaque noted in the left external carotid artery. Antegrade flow is noted in the left vertebral artery. Procedure Carotid Duplex 30533. Exam performed in department. Interpretation Summary No hemodynamically significant plague or stenosis bilateral extracranial internal carotid arteries with <50% stenosis bilaterally. <50% stenosis bilateral external carotids. Patent and antegrade vertebrals bilaterally. Ordering Physician: Carin Mckeon Referring Physician: Carin Mckeon Performed By: Shaunna Jernigan RVT
== END ==
PROVIDERS: Family Provider Internal Medicine; PCP Internal Medicine; Referring Provider Internal Medicine; Visit Provider Internal Medicine
DX: R42 Dizziness and giddiness (principal); R51 Headache; I27.20 Pulmonary hypertension, unspecified; I34.0 Nonrheumatic mitral (valve) insufficiency; I36.1 Nonrheumatic tricuspid (valve) insufficiency
CPT/HCPCS: 93306; 93880

== ENCOUNTER → 2018-10-11 08:27 | Outpatient (CLI) | payer MEDICARE, OTHER, SELFPAY ==
[2018-07-08 11:48] VITALS: BMI 34.4
--- NOTE | 2018-10-11 08:28 | US_ITS ---
STUDY: ULTRASOUND BREAST - RIGHT REASON FOR EXAM: Female, 82 years old. Abnormal screening mammogram. Prior right excisional breast biopsy. TECHNIQUE: Axial and longitudinal images of the RIGHT breast were performed with a high resolution ultrasound transducer. COMPARISON: Comparison is made with prior mammogram dated September 23, 2018 and prior ultrasound the right breast dated July 23, 2016. FINDINGS: RIGHT Breast: The palpable abnormality corresponds to a 2.6 cm x 3.1 cm x 2 cm irregular hypoechoic nodular density. This is at the 11:00 position breast at 4 cm from the nipple. A biopsy is recommended for further evaluation. Adjacent to this, there is a 1.3 cm x 0.5 cm x 0.5 cm irregular hypoechoic nodule. This is at the 12:00 position of the breast breast at 6 cm from the nipple. US/Breast Limited Unilateral IMPRESSION: Suspicious nodules as described. Biopsy is recommended. ASSESSMENT CATEGORY: BIRADS Category 5: Highly Suggestive of Malignancy - Appropriate Action Should Be Taken. A letter regarding these results will be sent to the patient by the facility within 30 days. Electronically Signed: Shai Gonzalez, at 13:19 EDT , Service support ,
== END ==
PROVIDERS: Family Provider Internal Medicine; PCP Internal Medicine; Referring Provider Internal Medicine Hematology & Oncology; Visit Provider Internal Medicine Hematology & Oncology
DX: N63.10 Unspecified lump in the right breast, unspecified quadrant (principal); Z85.3 Personal history of malignant neoplasm of breast
CPT/HCPCS: 76642

== ENCOUNTER 2018-10-13 08:43 | Outpatient (RCR) | payer MEDICARE, OTHER, SELFPAY ==
[2018-07-08 11:48] VITALS: BMI 34.4
--- NOTE | 2018-10-13 09:38 | HP.PTEVAL ---
Patient's Visit Information KARRIE DAVID is a 82 year old F referred to Physical Therapy by Carin Mckeon DO with a diagnosis of VERTIGO. Date of Evaluation: 10/13/18 Physical Therapist: Lester Wang, DPT, OCS, CSCS - Visit Plan Plan: No skilled PT required at this point, pt doing well at baseline and has no postiive positional tests any longer. Pt will notify doctor and call PT if dizzyness returns. - Subjective Findings: Got dizzy last week without reason. Was spinning over the weekend and could hardly get out of bed. Today feels pretty good. No falls. Using wh walker all the time out of house. Uses wall at home. Avoiding excessive activity but was able to go to [employer] and dinner. Saira Sent her for PT form doctor's office for vertigo which she has had positive tests and treatments in the past. - Objective Walks with wh walker I today and trasnfers I. Can walk without walker on firm flat surface with light with fair balance. c/s aROM WFL. No c/o dizzyness or problems today. - B hallpike today and - roll test. Oculomotor for pursuit and saccades adn VOR is without symptoms. - head thrust. - skew eye deviation. normal convergence. Unaboe t0o ellicit symptoms with movements of MSQ today. SHOULD BE NOTED THAT PATIENT STOPPED IN LATE LAST WEEK DUE TO THIS DIZZYNESS AND HAD POSITIVE l HALLPIKE AND WAS TREATED WITH STACEY AT THE TIME AND THEN A NEGATIVE TEST. SHE HAD A ROUGH FIRST COUPLE DAYS BUT HAS BEEN BACK TO NORMAL FOR THE LAST THREE DAYS. - Balance Scores Functional Gait Assessment Score: 21 % Disability: 30.0000 - Rehabilitation Potential Physical Therapy Diagnosis: vertigo. - Anticipated Interventions Thank you for the opportunity to evaluate your patient. For Medicare and Medicare HMO plans, please review the plan of care and approve it. It will need to be FAXED BACK to us at [phone] for Medicare purposes. For Medicare only, by signing this I certify the plan of care. Please let me know if there are questions or concerns regarding this plan of care. Physician Signature: Date:
== END 2018-10-13 19:00 | disposition home or self-care (01) ==
LOC: PT 08:43
PROVIDERS: Family Provider Internal Medicine; PCP Internal Medicine; Visit Provider Internal Medicine
DX: R42 Dizziness and giddiness (principal)
CPT/HCPCS: 97162

== ENCOUNTER → 2018-10-14 14:56 | Outpatient (CLI) | payer MEDICARE, OTHER, SELFPAY ==
--- NOTE | 2018-10-14 | BRBX_PTH ---
PATIENT: KARRIE DAVID LOC: [facility] U#:[id number] AGE/SX: 89/F ROOM: RE10/14/[address]: Dr. Blake Hsieh MD : 1935 BED: DIS: SPEC #: [id number] RECD: 10/14/18 14:38 STATUS: SARA REBlair #: [id number] AIDA: 10/14/18 00:[address]: Blake Hsieh DEPT: SURGICAL PATHOLOGY RECD BY: Fausto Zamora ENTERED: 10/15/18 09:35 SP TYPE: BREAST BX OTHR DR: DO Dr. 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 See comment. ERMIAS:reggie 10/18/18 COMMENT Ductal carcinoma in situ shows solid pattern, nuclear grade 1 and comprised about 15-20% of the total tumor volume. Immunohistochemistry ([id number]) supports the above diagnosis. ER/ID/[id number] studies are being performed on sections of tumor and the results from this study will be reported separately ([id number]). Please make reference to previous specimen ([id number]) left breast, ultrasound-guided core biopsy with diagnosis of ductal carcinoma in situ with focal area of microinvasive carcinoma and ([id number]) left breast, upper outer quadrant, stereotactic needle core biopsy with diagnosis of ductal carcinoma in situ. MICROSCOPIC DESCRIPTION Slides are reviewed. GROSS DESCRIPTION Received in fixative is one container labeled with the patient's name and designated right breast biopsy. The specimen consists of two elongated fragments of forde-yellow fibroadipose tissue that in aggregate measure 2 x 0.2 x 0.1 cm. The entire specimen is submitted in one cassette. / ERMIAS:reggie 10/15/18 TC:0 CPT: 40562
--- NOTE | 2018-10-14 | IMM_PTH ---
PATIENT: KARRIE DAVID LOC: [facility] U#:[id number] AGE/SX: 89/F ROOM: RE10/14/[address]: Dr. Blake Hsieh MD : 1935 BED: DIS: SPEC #: [id number] RECD: 10/18/18 09:54 STATUS: SRAA REQ #: [id number] AIDA: 10/14/18 00:[address]: Blake Hsieh DEPT: IMMUNOHISTOCHEMISTRY RECD BY: Aliza Sawant ENTERED: 10/18/18 09:55 SP TYPE: IMMUNO OTHR DR: Dr. Carin Mckeon DO Tissues: Right breast, NOS Procedures: CALPONIN-1 (add) CK5-6 (add) CK8 (add) E-CAD (add) HER2 YUNIOR (add) KI-67 (add) P53 (add) ID (add) IN SITU HYBRIDIZATION P40 (add) ER (initial) PHYSICIAN & INSTITUTION [facility] [id number] SPECIMEN INFORMATION: Tissue Source: Right breast Clinical Info: Abnormal ultrasound right breast Specimen Number: [id number] CPT code: 90255, 32587 x6, 26485 x3 METHODOLOGY: Deparaffinized sections of prefer/formalin-fixed tissue or PAP/DQ stained slides are incubated with monoclonal/polyclonal antibodies/oligonucleotide probes. Localization is made via biotin free immunoperoxidase method. Appropriate controls are performed and reacted as expected. Results on target cell population are indicated in the following table: RESULTS: ANTIBODY / CLONE RESULT E-Cad (ECH-6) positive CK8 ([id number]) positive CK5-6 (D5 & 1684) negative * Ki-67 (30-9) positive, low P53 (DO-7) negative P40 (BC28) negative * Calponin-1 (AA266T) negative * *?Positive in the area of ductal carcinoma in situ. MORPHOMETRIC ANALYSIS ER (clone 6F11) >95%, moderate ID (clone 16/1E2) >95%, moderate Her-2Neu (clone CB11) 1-2+ The prognostic test for HER2 is performed on formalin-fixed paraffin embedded tissue. A 3+ (positive) staining pattern is defined as intense, homogeneous, complete, circumferential membranous staining in >10% of contiguous tumor cells. A similar weak (2+) staining pattern is interpreted as equivocal. JOSIAS follow-up testing is recommended for all equivocal cases. Positivity/negativity for ER/ID is reported if > or < 1% of the tumor cells are immuno- reactive, respectively. The ASCO/CAP criteria is used for scoring. Reference: Journal of Clinical Oncology, 2013; 31:3862-2887 & 2010; 16:4621-2521. Duration of fixation: 54 Hrs; Sample Adequate: Yes. These assays have not been validated on decalcified tissues. Results should be interpreted with caution given the likelihood of false negativity on decalcified specimens. These tests were developed and their performance characteristics determined by Laboratory. They may not have been cleared or approved by the [place]. Food and Drug Administration. The FDA has determined that such clearance or approval is not necessary. INTERPRETATION: Right breast, ultrasound-guided needle core biopsy: Invasive ductal carcinoma, nuclear grade 1. Positive for estrogen receptors (favorable prognostic indicator). Positive for progesterone receptors (favorable prognostic indicator). Equivocal for overexpression of OZJ2aqy. SJ:reggie 10/18/18 ADDENDUM ADDENDUM ADDENDUM ADDENDUM ADDENDUM ADDENDUM ADDENDUM ADDENDUM ADDENDUM ADDENDUM ADDENDUM ADDENDUM ADDENDUM ADDENDUM ADDENDUM ADDENDUM ADDENDUM ADDENDUM ADDENDUM ADDENDUM ADDENDUM ADDENDUM ADDENDUM 10/20/2018 12:31 ADDENDUM 10/20/2018 12:31 ADDENDUM 10/20/2018 12:31 ADDENDUM 10/20/2018 12:31 ADDENDUM 10/20/2018 12:31 IN SITU HYBRIDIZATION (JOSIAS) FOR HER2 Interpretation: Not Amplified / Negative HER2 : CEP-17 Ratio: 0.94 Average HER2 Signal: 1.7 Average CEP-17 Signal: 1.8 Number of Tumor Cells Scanned: 50 Interpretative Information: The INFORM HER2 Dual JOSIAS DNA Probe Cocktail assay is performed on formalin-fixed paraffin embedded tissue and determines HER2 gene status by detecting HER2 copies via silver in situ hybridization (SISH) and Chromosome 17 copies via chromogenic red in situ hybridization on tumor cells. A minimum of 20 cells representing > 10% of contiguous and homogeneous invasive tumor cells were analyzed. HER2 gene status is classified as Non-amplified (HER2/Chr17 ratio < 2.0) or Amplified (HER2/Chr17 ratio greater than or equal to 2.0). If the resulting HER2/Chr17 ratio falls within 1.8 - 2.2 (Borderline), retesting by FISH is recommended. Reference: Zarina TRACEY, Dot RODRÍGUEZ, Kodi HASSAN, et al: Recommendations for Human Epidermal Growth Factor Receptor 2 Testing in Breast Cancer: [place] [employer] / [employer] [place] [employer] Clinical Practice Guideline Update. J Clin Oncol 31:0368-2068, 2013. SJ:reggie 10/20/18
[2018-10-14 14:03] VITALS: BMI 34.4
== END ==
PROVIDERS: Family Provider Internal Medicine; PCP Internal Medicine; Referring Provider Surgery; Visit Provider Surgery
DX: R92.8 Other abnormal and inconclusive findings on diagnostic imaging of breast (principal)
CPT/HCPCS: 88305; 88341; 88342; 88368

== ENCOUNTER 2018-11-19 07:53 | Day surgery (SDC) | payer MEDICARE, OTHER, SELFPAY ==
--- NOTE | 2018-10-20 02:57 | HP_ITS ---
Intake Vital Signs 10/20/18 Body Mass Index (BMI) 34.4 10/20/18 Height 5 ft 4 in 10/20/18 Weight: 201 lb 10/20/18 Body Mass Index (BMI) 34.4 10/20/18 Blood Pressure 147/73 H 10/20/18 Blood Pressure Location Rt brachial 10/20/18 Blood Pressure Position Sitting 10/20/18 Respiratory Rate 18 10/20/18 Pulse Rate 58 L 10/20/18 Pulse Source Monitor 10/20/18 Temperature 97.6 F L 10/20/18 Temperature Source Oral 10/20/18 Pulse Ox 96 10/20/18 Oxygen Delivery Method room air Intake Visit Reasons: Follow up right breast biopsy Chief Complaint: influenza Route Deliverer Required: No Is patient in pain?: No Allergies hydrocodone bitartrate [From Vicodin] Adverse Reaction (Verified 10/20/18 14:39) Other oxycodone HCl [From Percocet] Adverse Reaction (Verified 10/20/18 14:39) Other Medications Amlodipine Besylate 2.5 mg PO QHS 07/10/15 [History Confirmed 10/20/18] Aspirin E.C. [Ecotrin] 81 mg PO QHS 07/10/15 [History Confirmed 10/20/18] Atenolol [Tenormin] 100 mg PO QHS 07/10/15 [History Confirmed 10/20/18] Atorvastatin Calcium [Lipitor] 20 mg PO QHS 07/10/15 [History Confirmed 10/20/18] Clonidine HCl 0.1 mg PO QHS 07/10/15 [History Confirmed 10/20/18] Hydrochlorothiazide [Hctz] 25 mg PO DAILY 07/10/15 [History Confirmed 10/20/18] Isosorbide DN [Isordil] 7.5 mg PO TIDCM 07/10/15 [History Confirmed 10/20/18] Levothyroxine [Synthroid] 112 mcg PO SUMOTUWETHFR 07/10/15 [History Confirmed 10/20/18] Levothyroxine [Synthroid] 224 mcg PO SA 07/10/15 [History Confirmed 10/20/18] Mometasone/Formoterol [Dulera 200 Mcg/5 Mcg Inhaler] 2 puff INHALATION BID 07/10/15 [History Confirmed 10/20/18] Montelukast [Singulair] 10 mg PO QHS 07/10/15 [History Confirmed 10/20/18] Cholecalciferol (Vitamin D3) [Vitamin D3] 4,000 unit PO DAILY 02/15/17 [History Confirmed 10/20/18] Fexofenadine HCl [Yelena Allergy] 180 mg PO QHS 02/15/17 [History Confirmed 10/20/18] Gabapentin [Neurontin] 300 mg PO QHS 02/16/17 [History Confirmed 10/20/18] Metformin(XR) [Glucophage Xr] 500 mg PO DAILY 06/02/17 [History Confirmed 10/20/18] Mometasone Furoate [Nasonex] 2 spray NASAL DAILY 10/06/17 [History Confirmed 10/20/18] Loperamide [Imodium] 2 mg PO Q2H PRN PRN cap 10/08/17 [Rx Confirmed 10/20/18] Ascorbic Acid [Vitamin C] 1,000 mg PO QHS 07/08/18 [History Confirmed 10/20/18] Cranberry Fruit Concentrate [Azo Cranberry] 1 tab PO BID 07/08/18 [History Confirmed 10/20/18] Duloxetine Hcl [Cymbalta] 30 mg PO QHS 07/08/18 [History Confirmed 10/20/18] Esomeprazole Mag Trihydrate [Nexium] 40 mg PO BID 07/08/18 [History Confirmed 10/20/18] Guaifenesin [Mucinex] 1,200 mg PO BID 07/08/18 [History Confirmed 10/20/18] Meclizine HCl 12.5 mg PO TID PRN 07/08/18 [History Confirmed 10/20/18] Methenamine Hippurate 1 gm PO QHS 07/08/18 [History Confirmed 10/20/18] Benzonatate [Tessalon Perle] 200 mg PO TID #15 cap 07/09/18 [Rx Confirmed 10/20/18] Oseltamivir Phosphate [Tamiflu] 30 mg PO BID #7 cap 07/09/18 [Rx Confirmed 10/20/18] ezetimibe 10 mg tablet 10 mg PO DAILY 10/14/18 [History Confirmed 10/20/18] PFSH Medical History Encephalopathy (Acute) UTI (urinary tract infection) (Acute) Acute bronchitis due to Haemophilus influenzae (Acute) GERD (gastroesophageal reflux disease) (Chronic) Chronic obstructive pulmonary disease (COPD) (Chronic) Hypothyroidism (Chronic) Obesity (BMI 30-39.9) (Chronic) HLD (hyperlipidemia) (Chronic) HTN (hypertension) (Chronic) Diabetes mellitus, type II (Chronic) Anxiety and depression (Chronic) Elevated liver enzymes (Chronic) abnormal ultrasound right breast (Acute) Surgical History History of laparoscopic cholecystectomy (Acute) History of left mastectomy (Acute) Status post left partial knee replacement (Acute) history laminectomy with decompression (Acute) history partial right oophorectomy (Acute) Family History Brother Breast cancer Kidney disease Heart disease Father Heart disease Social History Smoking Status: Former smoker alcohol intake: never substance use type: does not use HPI HPI HPI: KARRIE DAVID is a 82 F who presents to the office today for HPI HPI Surgical H&P: Yes HPI: KARRIE DAVID is a 82 F who presents to the office today for follow-up from an ultrasound-guided needle core biopsy of her right breast which was completed on 10/14/2018. Patient had a mammogram and ultrasound which were read as a BI- RADS Category 5. 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 ROS General General: Yes fatigue and breast cancer; no weight change, appetite, colon cancer or weakness HEENT HEENT: Yes difficulty swallowing; no eye injury, eye surgery, swollen glands or hoarseness Endo Endocrine: Yes diabetes mellitus; no thyroid disease, thyroid cancer, Hair loss, heat intolerance or cold intolerance Skin Skin: No rash or changing moles Breast Breast: Yes abnormal US; no left breast lump, right breast lump, nipple discharge, breast pain, abnormal mammogram or breast enlargement Musc Musculoskeletal: Yes back problems, arthritis and rheumatoid arthritis; no gout or joint pain Cardio Cardiovascular: Yes high blood pressure; no murmur, pacemaker, heart disease, atrial fibrillation, heart attack, heart stent, palpitations, shortness of breat with exertion or chest pain Psych Psychiatric: Yes anxiety; no depression or hearing voices Resp Respiratory: Yes shortness of breath, No sleep apnea, Yes cough, Yes COPD, Yes asthma, No emphysema, No wheezing Gastro Gastrointestinal: No abdominal pain, No nausea or vomiting, No diarrhea, No constipation, No blood in stool, Yes acid reflux, Yes hemorrhoids, Yes ulcers, No gallbladder problem, No black,tarry stools Guilherme Hematologic: No blood thinners, No blood disorders, No bleeding, No anemia, No blood clots Neuro Neurologic: No weakness Exam Const General: no acute distress, well developed, well hydrated Orientation: oriented to person, oriented to place, oriented to time [facility] Head: normocephalic, atraumatic Ears: external ears normal Mouth: moist mucous membranes Eyes Sclera: sclerae normal Pupils: normal by confrontation Neck Neck: no lymphadenopathy noted Neck mass: No Thyroid: thyroid normal, symmetrical Chest Chest palpation & inspection: normal inspection of the chest Breast inspection: normal inspection of the breasts Breast Palpation: No nipple discharge Other: Palpation of the right breast reveals biopsy site is clean without signs of infection. Palpation of the left breast reveals nml. Axillary exam demonstrates no suspicious masses in either the left or right axilla. Resp Effort & Inspection: normal respiratory effort Auscultation: clear to auscultation bilaterally Percussion: percussion normal Cardio Rate: regular rate Rhythm: regular rhythm Heart Sounds: no murmurs GI Palpation: soft, no hepatosplenomegaly, no masses, nontender Rectal Exam: other Other: Rectal exam deferred. Extrem General: normal to inspection, no clubbing, cyanosis or edema Assessment & Plan Problems 1. Malignant neoplasm of upper-outer quadrant of right breast in female, estrogen receptor positive C50.411; Z17.0 Plan I have given the patient options for initial surgical treatment. Options are the following: lumpectomy followed by radiation therapy vs. mastectomy vs. mastectomy followed by immediate reconstruction. I have described the procedures to the patient. I have described the advantages and disadvantages of the options, but I have told the patient that among the options, the survival rate for breast cancer is the same. I have told the patient that with all the surgeries that a sentinel lymph node biopsy is required. I have described the procedure of sentinel lymph node biopsy to the patient. I have told the patient that if the biopsy is positive for metastatic disease, then a full axillary lymph node dissection is required. I have told the patient that adjuvant chemotherapy will be required should the lymph nodes reveal metastatic disease. Also, a full lymph node dissection will increase the risk for lymphedema, especially if there are 4 or more lymph nodes positive for metastatic disease and radiation to the axilla is also required. I have told the patient the risks of surgery, including but not limited to: infection, bleeding, scar tissue, seroma and persistent seroma, lymph leak, injury to any blood vessels, injury to any nerves (particularly the long thoracic, the thoracodorsal, and the second intercostal brachial and the resultant sequelae), lymphedema, cosmetic deformity, dysesthesias, wound infections, further surgery (especially if margins are not clear), complications of anesthesia, etc. the patient understands. The patient will think about the options and discuss it further with the family. The patient will contact me in the next few days when she decides what the patient wishes to do. I have answered all the patient?s questions at this point to her satisfaction and she has no further questions. Patient has elected to undergo a right-sided mastectomy with sentinel lymph node bx. Coding Level of Care Code Off vis,est,level 3 Diagnoses Malignant neoplasm of upper-outer quadrant of right breast in female, estrogen receptor positive C50.411; Z17.0 ??Estrogen receptor status: positive 10/20/18 1457 <Electronically signed by Blake Hsieh MD> Date Blake Hsieh MD I have re-examined the patient. There are no clinical changes since date of exam.
[2018-10-20 14:40] VITALS: BMI 34.4
[2018-11-19] VITALS (10 sets, daily range): BP systolic 127–181; BP diastolic 46–75; PULSE 55–82; RESP 16–18; TEMP 36–36.6; O2SAT 94–99; BMI 34.2
--- NOTE | 2018-11-19 | IMM_PTH ---
PATIENT: KARRIE DAVID LOC: [facility] – [place] U#:[id number] AGE/SX: 82/F ROOM: RE11/19/[address]: Dr. Blake Hsieh MD : 1935 BED: DIS: 11/20/2018 SPEC #: [id number] RECD: 11/23/18 14:14 STATUS: SARA REBlair #: [id number] AIDA: 11/19/18 00:[address]: Blake Hsieh DEPT: IMMUNOHISTOCHEMISTRY RECD BY: Aliza Sawant ENTERED: 11/23/18 14:15 SP TYPE: IMMUNO OTHR DR: Dr. Carin Mckeon, Tissues: A - Axillary lymph node, NOS Procedures: CK8 (add) Pankeratin (initial) Pankeratin (add) PHYSICIAN & INSTITUTION [place] [id number] SPECIMEN INFORMATION: Tissue Source: A - Right axillary sentinel lymph nodes, biopsy Clinical Info: Malignant neoplasm of right breast Specimen Number: [id number] A1-3 CPT code: 52800, 22666 x5 METHODOLOGY: Deparaffinized sections of prefer/formalin-fixed tissue or PAP/DQ stained slides are incubated with monoclonal/polyclonal antibodies/oligonucleotide probes. Localization is made via biotin free immunoperoxidase method. Appropriate controls are performed and reacted as expected. Results on target cell population are indicated in the following table: RESULTS: ANTIBODY / CLONE RESULT Block A1 AE1-3 (AE1/AE3/PCK26) negative CK8 ([id number]) negative Block A2 AE1-3 (AE1/AE3/PCK26) positive CK8 ([id number]) positive Block A3 AE1-3 (AE1/AE3/PCK26) negative CK8 (38hktgS07) negative These tests were developed and their performance characteristics determined by [facility]. They may not have been cleared or approved by the U.S. Food and Drug Administration. The FDA has determined that such clearance or approval is not necessary. INTERPRETATION: A. Right axillary sentinel lymph nodes, biopsy: One out of seven lymph nodes positive for micrometastatic carcinoma. AM:reggie 11/24/18
--- NOTE | 2018-11-19 08:30 | NM_ITS ---
PROCEDURE: NUCLEAR MEDICINE Injection Kenedy Node - RIGHT breast(s). REASON FOR EXAM: Female, 82 years old. Right breast cancer. TECHNIQUE: Kenedy node localization using radionuclide methods of the RIGHT breast(s) was performed following subcutaneous administration of 1.1 mCi of of sulfur colloid Tc-99m. FINDINGS: 1.1 mCi of technetium sulfur colloid was injected subcutaneously in 4 equal aliquots at the biopsy site. NM/Lymph Node Injection Only IMPRESSION: Subcutaneous injection of 1.1 mCi of technetium sulfur colloid at the biopsy site. Electronically Signed: Shai Gonzalez, at 15:50 EDT , Service support ,
[2018-11-19 08:31] LABS: Bedside Glucose 122 mg/dL (70-110)
[2018-11-19] MEDS: Cefazolin 2 GM in 0.9% Normal Saline 100 ML IV (11:01)
--- NOTE | 2018-11-19 11:05 | AXNB_PTH ---
PATIENT: KARRIE DAVID LOC: [facility] – [place] U#:[id number] AGE/SX: 82/F ROOM: RE11/19/[address]: Dr. Blake Hsieh MD : 1935 BED: DIS: 11/20/2018 SPEC #: [id number] RECD: 11/19/18 13:04 STATUS: SARA ASHISH #: [id number] AIDA: 11/19/18 11:[address]: Blake Hsieh DEPT: SURGICAL PATHOLOGY RECD BY: Aliza Sawant ENTERED: 11/19/18 15:27 SP TYPE: AX NODE BX OTHR DR: Dr. Carin Mckeon DO Tissues: A - Axillary lymph node, NOS B - Right breast, NOS Procedures: Frozen Section (charge) Surgery Specimen Level IV Surgery Specimen Level HEADER OPERATION: Mastectomy, sentinel lymph node biopsy PRE-OP DIAGNOSIS: Malignant neoplasm of upper outer quadrant of right breast; ER positive TISSUE SUBMITTED: A - Right axillary sentinel lymph nodes sent for frozen at 1155, B - Right breast FROZEN SECTION DIAGNOSIS A. Right axillary sentinel lymph nodes, biopsy: One out of seven lymph nodes positive for micrometastatic carcinoma measuring 1.5 mm in greatest dimension. AM: 11/19/18 MICROSCOPIC DIAGNOSIS A. Right axillary sentinel lymph nodes, biopsy: One out of seven lymph nodes positive for micrometastatic carcinoma (1.5 mm in greatest dimension). B. Right breast, mastectomy: Invasive ductal carcinoma. Ductal carcinoma in situ. See cancer checklist. AM: 11/23/18 COMMENT INVASIVE BREAST CANCER SUMMARY: Specimen: Complete breast Procedure: Mastectomy Specimen integrity: Single intact specimen. Specimen size: 29 cm Specimen laterality: Right breast Tumor size: 5 x 3 x 3 cm Tumor focality: Single focus of invasive carcinoma Macroscopic and Microscopic extent of tumor: Skin: Free of carcinoma. Nipple: Free of carcinoma. Skeletal muscle: Not present Histologic type of invasive carcinoma: Invasive ductal carcinoma Histologic Grade (Mira grade): Glandular/tubular differentiation score: 3 Nuclear pleomorphism score: 2 Mitotic count score: 1 Overall grade: Grade 2 (total score of 6) Margins: Uninvolved by invasive carcinoma. 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 Microcalcifications: Present in both carcinoma and non-neoplastic tissue. Treatment effect: Unknown Additional pathologic findings: Fibrocystic change, adenosis, focal intraductal hyperplasia with focal satellite atypia and focal intraductal papilloma. Ancillary studies: Previously performed on same tumor ([id number] / [id number]) ER: >95%, moderate intensity [place]: >95%, moderate intensity Her2 luli: 1-2+ (IHC) Her2 by dual JOSIAS: Negative/Not amplified ( 0.94) PATHOLOGIC STAGE: pT2 pN1mi Mx The above summary is in compliance with [employer] (CAP) Cancer Protocols Checklist and [place] Joint Committee on Cancer (AJCC), Staging Manual, 8th Ed. The micrometastatic focus in the single lymph node is noted in two separate foci, the largest of which measures 1.5 millimeters. A. Immunohistochemistry ([id number]) supports the above diagnosis. Case has been reviewed in consultation with Dr. Ray who concurs with the above diagnosis. IDC:SJ MICROSCOPIC DESCRIPTION Slides are reviewed. GROSS DESCRIPTION A - Received fresh for frozen section consultation labeled with the patient's name is a specimen designated right axillary sentinel lymph nodes. The specimen consists of multiple irregular fragments of forde-yellow fatty tissue ranging in size from 1 to 5 cm. Dissection reveals seven bluish nodules ranging in size from 0.2 to 1.2 cm. The nodules are submitted in their entirety for frozen section consultation as follows: 1 - four nodules, 2 - two nodules, 2 - one nodule, bisected. / AM:reggie 11/19/18 B - Received in fixative is one container labeled with the patient's name and designated right breast. The specimen consists of a mastectomy specimen consisting of breast tissue with overlying skin ellipse. The breast tissue measures 29 x 26 x 7 cm. The overlying skin ellipse measures 25 x 12.5 cm. The skin surface shows blue dye discoloration. The nipple areolar complex measures 4.5 cm in greatest dimension. The nipple appears to be flattened or inverted. The specimen is inked as follows: The specimen is inked as follows: superior margin - blue, inferior margin - black, medial margin - red, lateral margin - orange, posterior margin - black. No skeletal muscle tissue is identified at the posterior margin. Sections reveal a forde, indurated mass in the upper outer quadrant measuring 5 x 3 x 3 cm. This mass is 3 cm away from the closest posterior margin. Sections of the rest of the specimen reveal forde-yellow adipose cut surfaces mixed with forde-white fibrous areas. Sections will be submitted after overnight fixation. / SJ:reggie 11/19/18 Elevator Mechanic sections are submitted in 12 cassettes as follows: 1 - nipple, entirely submitted, 2 & 3 - perpendicular margin and skin, 4-7 - tumor, 8 & 9 - distribution sales representative sections adjacent to the tumor, 1012 - distribution sales representative sections away from the tumor. / SJ:reggie 11/22/18 TC:0 CPT: 51105, 19612, 53553
[2018-11-19] MEDS: Methylene Blue 1% 100 MG/10 ML VIAL (11:15)
--- NOTE | 2018-11-19 12:12 | PCM.OPRPT ---
Problem List (1) Malignant neoplasm of upper-outer quadrant of right female breast Status: Acute Qualifiers: Estrogen receptor status: positive Qualified Code(s): C50.411 - Malignant neoplasm of upper-outer quadrant of right female breast; Z17.0 - Estrogen receptor positive status [ER+] Report of Operation Date of Procedure: 11/19/18 Pre-Operative Diagnosis: Malignancy female breast right upper outer quadrant estrogen receptor positive Post-Operative Diagnosis: Same Surgery/Procedure Performed:: 1. Injection of 5 cc of Lymphazurin blue. 2. Right-sided mastectomy. 3. Right sentinel lymph node biopsy Type of Anesthesia:: General - patye Anesthesiologist: Ashish Yepez Specimen's removed: 1. Right breast. 2. [place] lymph nodes Drains: two 15 round Chandra-Stein drains Estimated Blood Loss (mL): 100 cc Fluids Replaced: 750 cc LR Description of Procedure: Patient was brought into the operating room. Placed in the supine position. Under excellent general endotracheal intubation the right breast was prepped with alcohol. 5 cc of Lymphazurin blue were injected in the circumareolar fashion. Breast was massaged for 5 minutes. The right breast and chest area was sterilely prepped and draped in usual fashion. Elliptical incision was made around the nipple areolar complex also to include the previous biopsy incision. Plasma blade was used to create flaps medially we went to the sternum inferiorly we went to the rectus abdominis muscle and superiorly we went to the clavicle. I rotated the breast off of the pectoralis major muscle with the plasma blade several perforating vessels were clipped with medium ligaclips. As I got to the lateral edge of the pectoralis major I entered the clavipectoral fascia I was able to identify a very blue lymph node however I was quite surprised when the neoprobe did not pick pack worker anything. In fact the neoprobe really was not working well throughout this case. Several other smaller blue lymph nodes were identified these were also taken and sent to pathology for permanent sectioning after a general expiration in the axillary area I could find no other blue lymph nodes I sent the ones off for frozen section they came back negative. Wound was irrigated. 215 round Chandra-Stein drains were placed from an inferior incision into the chest cavity. There was sutured to the skin with 3-0 nylon. The wound was then brought together with deep dermal stitches of 3-0 Vicryl then a running 4-0 Monocryl. Steri-Strips were applied sterile dressings were applied Carrington wrap was applied patient tolerated the procedure well. - Admit VTE Documentation VTE Present on Admission: No VTE Mechan Device Prophylaxis: SCD's VTE Pharm Prophylaxis ordered?: No Reason prophylaxis not ordered:: Treatment Not Indicated
--- NOTE | 2018-11-19 12:17 | OP.PCM_ITS ---
Problem List (1) Malignant neoplasm of upper-outer quadrant of right female breast Status: Acute Qualifiers: Estrogen receptor status: positive Qualified Code(s): C50.411 - Malignant neoplasm of upper-outer quadrant of right female breast; Z17.0 - Estrogen receptor positive status [ER+] Report of Operation Date of Procedure: 11/19/18 Pre-Operative Diagnosis: Malignancy female breast right upper outer quadrant estrogen receptor positive Post-Operative Diagnosis: Same Surgery/Procedure Performed:: 1. Injection of 5 cc of Lymphazurin blue. 2. Right-sided mastectomy. 3. Right sentinel lymph node biopsy Type of Anesthesia:: General - patye Anesthesiologist: Ashish Yepez Specimen's removed: 1. Right breast. 2. [place] lymph nodes Drains: two 15 round Chandra-Stein drains Estimated Blood Loss (mL): 100 cc Fluids Replaced: 750 cc LR Description of Procedure: Patient was brought into the operating room. Placed in the supine position. Under excellent general endotracheal intubation the right breast was prepped with alcohol. 5 cc of Lymphazurin blue were injected in the circumareolar fashion. Breast was massaged for 5 minutes. The right breast and chest area was sterilely prepped and draped in usual fashion. Elliptical incision was made around the nipple areolar complex also to include the previous biopsy incision. Plasma blade was used to create flaps medially we went to the sternum inferiorly we went to the rectus abdominis muscle and superiorly we went to the clavicle. I rotated the breast off of the pectoralis major muscle with the plasma blade several perforating vessels were clipped with medium ligaclips. As I got to the lateral edge of the pectoralis major I entered the clavipectoral fascia I was able to identify a very blue lymph node however I was quite surprised when the neoprobe did not pick and shovel man anything. In fact the neoprobe really was not working well throughout this case. Several other smaller blue lymph nodes were identified these were also taken and sent to pathology for permanent sectioning after a general expiration in the axillary area I could find no other blue lymph nodes I sent the ones off for frozen section they came back negative. Wound was irrigated. 215 round Chandra-Stein drains were placed from an inferior incision into the chest cavity. There was sutured to the skin with 3-0 nylon. The wound was then brought together with deep dermal stitches of 3-0 Vicryl then a running 4-0 Monocryl. Steri-Strips were applied sterile dressings were applied Carrington wrap was applied patient tolerated the procedure wel l. - Admit VTE Documentation VTE Present on Admission: No VTE Mechan Device Prophylaxis: SCD's VTE Pharm Prophylaxis ordered?: No Reason prophylaxis not ordered:: Treatment Not Indicated
[2018-11-19 14:01] LABS: Bedside Glucose 142 mg/dL (70-110)
[2018-11-19] MEDS: Acetaminophen 325 MG Tablet 650 MG PO ×2 (15:31→21:23)
--- NOTE | 2018-11-19 17:01 | NURSING ---
pt in surgery. consult not complete.
--- NOTE | 2018-11-19 17:03 | NURSING ---
pt was in surgery at time of consult. pt has not been seen.
[2018-11-19] MEDS: Isosorbide DN 10 MG Tablet 5 MG PO (17:41)
[2018-11-19] MEDS: METHENAMINE HIPPURATE 1 GM TABLET PO (21:26)
[2018-11-19] MEDS: DULoxetine Hcl 30 MG Capsule PO (21:26)
[2018-11-19] MEDS: Pantoprazole Sodium 40 MG Tablet PO (21:27)
[2018-11-19] MEDS: Gabapentin 300 MG Capsule PO (21:27)
[2018-11-19] MEDS: Montelukast 10 MG Tablet PO (21:27)
[2018-11-19] MEDS: Ketorolac 15 MG/ML Vial IV (22:40)
[2018-11-20 02:17] VITALS: BP 141/48; PULSE 57; RESP 18; TEMP 36.6; O2SAT 93
[2018-11-20] MEDS: Lactated Ringers 1,000 ML 70 ML IV (02:29)
[2018-11-20] MEDS: Ketorolac 15 MG/ML Vial IV ×2 (05:28→11:30)
[2018-11-20] MEDS: Levothyroxine 112 MCG Tablet 224 MCG PO (05:29)
[2018-11-20 07:21] VITALS: O2SAT 95
--- NOTE | 2018-11-20 08:03 | DCINST_ITS ---
Discharge Diet: No Restrictions Discharge Activity: May Not Drive - for 2-3 days or while taking narcotic pain meds. May shower in (days): 1 Lifting Restrictions: 10 pounds for 1 week. Call your doctor if your incision/area has: Continuous Slow Oozing, Sudden In creased Bleeding Call your doctor if you observe: Fever of 101 or Higher Suture Line Care: Avoid Pulling/Pushing, Avoid Pinching/Bending Remove Dressing in (days):: 1 - Remove bulky dressing tomorrow. May leave any opsite dressing for 3-4 days[address] Keep dressing in place until your follow-up appointment. Additional Dressing/Incision Instructions:: Remove bulky dressing tomorrow. May leave any opsite dressing for 3-4 days. Keep dressing in place until your follow-up appointment. Allergies/Adverse Reactions: Allergies hydrocodone bitartrate [From Vicodin] Adverse Reaction (Verified 11/19/18 08:09) Other HALLUCINATIONS oxycodone HCl [From Percocet] Adverse Reaction (Verified 11/19/18 08:09) Other HALLUCINATIONS tramadol Adverse Reaction (Verified 11/19/18 08:09) Other HALLUCINATIONS Medications to take at Discharge Amlodipine Besylate 2.5 mg PO DAILY 07/10/15 Aspirin E.C. [Ecotrin] 81 mg PO QHS 07/10/15 Atenolol [Tenormin] 100 mg PO DAILY 07/10/15 Clonidine HCl 0.1 mg PO DAILY 07/10/15 Hydrochlorothiazide [Hctz] 25 mg PO DAILY 07/10/15 Isosorbide DN [Isordil] 5 mg PO TIDCM 07/10/15 Levothyroxine [Synthroid] 112 mcg PO SUMOTUWETHFR 07/10/15 Levothyroxine [Synthroid] 224 mcg PO SA 07/10/15 Mometasone/Formoterol [Dulera 200 Mcg/5 Mcg Inhaler] 2 puff INHALATION BID 07/10/15 Montelukast [Singulair] 10 mg PO QHS 07/10/15 Cholecalciferol (Vitamin D3) [Vitamin D3] 4,000 unit PO DAILY 02/15/17 Fexofenadine HCl [Yelena Allergy] 180 mg PO QHS 02/15/17 Gabapentin [Neurontin] 300 mg PO QHS 02/16/17 metFORMIN (XR) [Glucophage Xr] 500 mg PO DAILY 06/02/17 Mometasone Furoate [Nasonex] 2 spray NASAL DAILY 10/06/17 Loperamide [Imodium] 2 mg PO Q2H PRN PRN cap 10/08/17 Ascorbic Acid [Vitamin C] 1,000 mg PO QHS 07/08/18 Cranberry Fruit Concentrate [Azo Cranberry] 2 tab PO DAILY 07/08/18 Duloxetine Hcl [Cymbalta] 30 mg PO BID 07/08/18 Esomeprazole Mag Trihydrate [Nexium] 40 mg PO BID 07/08/18 Meclizine HCl 12.5 mg PO TID PRN 07/08/18 Methenamine Hippurate 1 gm PO QHS 07/08/18 ezetimibe 10 mg tablet 10 mg PO QHS 10/14/18 Cyanocobalamin (Vitamin B-12) [Vitamin B-12] 2,000 mcg PO DAILY 11/02/18 Vitamin E 400 units PO DAILY 11/02/18 Ketorolac [Toradol] 10 mg PO Q6H #10 tab 11/20/18 The following prescriptions were given: Ketorolac [Toradol] 10 mg PO Q6H #10 tab Primary Care Physician: Carin Mckeon DO [Primary Care Provider] -
[2018-11-20 09:09] VITALS: BP 154/56; PULSE 68; RESP 16; TEMP 36.9; O2SAT 96
[2018-11-20] MEDS: amLODIPine 2.5 MG Tablet PO (09:12)
[2018-11-20] MEDS: Isosorbide DN 10 MG Tablet 5 MG PO (09:12)
[2018-11-20] MEDS: DULoxetine Hcl 30 MG Capsule PO (09:12)
[2018-11-20] MEDS: metFORMIN (XR) 500 MG Tablet PO (09:12)
[2018-11-20] MEDS: cloNIDine HCl 0.1 MG Tablet PO (09:13)
[2018-11-20] MEDS: Atenolol 100 MG Tablet PO (09:13)
[2018-11-20] MEDS: hydroCHLOROthiazide 25 MG Tablet PO (09:13)
[2018-11-20] MEDS: Pantoprazole Sodium 40 MG Tablet PO (09:13)
[2018-11-20] MEDS: Acetaminophen 325 MG Tablet 650 MG PO (10:46)
[2018-11-20] MEDS: 0.9% NaCl Peripheral Flush Adult/Peds IV (11:30)
[2018-11-20 11:34] VITALS: BP 144/54; PULSE 56; RESP 18; TEMP 36.6; O2SAT 92
== END 2018-11-20 12:00 | disposition home or self-care (01) ==
LOC: SDC 07:54 → AC 07:56 → MS3 10:49
PROVIDERS: Family Provider Internal Medicine; PCP Internal Medicine; Referring Provider Surgery; Visit Provider Surgery
PROC: (CPT 19307; principal; 2018-11-19 10:50)
DX: C50.411 Malignant neoplasm of upper-outer quadrant of right female breast (principal); C77.3 Secondary and unspecified malignant neoplasm of axilla and upper limb lymph nodes; Z17.0 Estrogen receptor positive status [ER+]; K21.9 Gastro-esophageal reflux disease without esophagitis; R13.10 Dysphagia, unspecified; E78.00 Pure hypercholesterolemia, unspecified; E11.9 Type 2 diabetes mellitus without complications; I10 Essential (primary) hypertension; I44.7 Left bundle-branch block, unspecified; J44.9 Chronic obstructive pulmonary disease, unspecified; I27.20 Pulmonary hypertension, unspecified; E03.9 Hypothyroidism, unspecified; F32.9 Major depressive disorder, single episode, unspecified; F41.9 Anxiety disorder, unspecified; E66.9 Obesity, unspecified; Z68.34 Body mass index [BMI] 34.0-34.9, adult; Z79.82 Long term (current) use of aspirin; Z79.84 Long term (current) use of oral hypoglycemic drugs; Z79.899 Other long term (current) drug therapy; Z85.3 Personal history of malignant neoplasm of breast; Z90.12 Acquired absence of left breast and nipple; Z87.891 Personal history of nicotine dependence; Z80.3 Family history of malignant neoplasm of breast
CPT/HCPCS: 00400; 19303; 38525; 38792; 82962; 88305; 88307; 88309; 88331; 88341; 88342; A9541; J7120; A4216; J2405

== ENCOUNTER 2019-01-06 14:16 | Outpatient (RCR) | payer MEDICARE, OTHER, SELFPAY ==
[2018-12-14 15:07] VITALS: BMI 33.4
[2018-12-20 15:39] VITALS: BMI 34.2
[2019-01-06 14:30] VITALS: BP 152/67; PULSE 68; RESP 22; TEMP 36.4; BMI 33.8
--- NOTE | 2019-01-06 16:39 | HP.PCM_ITS ---
(1) Nonhealing surgical wound Status: Acute Current Visit: Yes Code(s): T81.89XA - Other complications of procedures, not elsewhere classified, initial encounter (2) Malignant neoplasm of upper-outer quadrant of right female breast Status: Acute Current Visit: No Qualifiers: Estrogen receptor status: positive Qualified Code(s): C50.411 - Malignant neoplasm of upper-outer quadrant of right female breast; Z17.0 - Estrogen receptor positive status [ER+] Code(s): C50.411 - Malignant neoplasm of upper-outer quadrant of right female breast (3) Obesity (BMI 30-39.9) Status: Chronic Current Visit: No Code(s): E66.9 - Obesity, unspecified (4) HLD (hyperlipidemia) Status: Chronic Current Visit: No Qualifiers: Hyperlipidemia type: unspecified Code(s): E78.5 - Hyperlipidemia, unspecified (5) HTN (hypertension) Status: Chronic Current Visit: No Qualifiers: Hypertension type: essential hypertension Code(s): I10 - Essential (primary) hypertension (6) Diabetes mellitus, type II Status: Chronic Current Visit: No Qualifiers: Diabetes mellitus senior care insulin use: without senior care use Diabetes mellitus complication status: with unspecified complications Code(s): E11.9 - Type 2 diabetes mellitus without complications History of Present Illness Date of Service: 01/06/19 Chief Complaint: Nonhealing postsurgical wound from right mastectomy with sentinel lymph node biopsy on 11/19/2018 History of Wound: Patient is an 83 year old female who presents to the wound center status post right mastectomy with sentinel lymph node biopsy on 11/19/18. On 01/03/[address] patient [address] Hsieh's office and stated that her incision had been leaking fluid, the scab fell off, and an odor was present for about a week. Patient states that Dr. Hsieh's office did a debridment and packed it and sent her here for a consult for a wound vac. Patient denies any pain/discomfort to the area at this time. She denies any other acute concerns at this time. Patient also denies fevers, chills, nausea, vomiting, chest pain, palpatations, pressure or shortness of breath. Past Medical History Past Medical History: Chronic Problems (Last Reviewed 12/28/18 @ 09:12 by Monique Melgar) GERD (gastroesophageal reflux disease) (Chronic) Chronic obstructive pulmonary disease (COPD) (Chronic) Hypothyroidism (Chronic) Obesity (BMI 30-39.9) (Chronic) HLD (hyperlipidemia) (Chronic) HTN (hypertension) (Chronic) Diabetes mellitus, type II (Chronic) Anxiety and depression (Chronic) Elevated liver enzymes (Chronic) Surgical History: - Allergies/Adverse Reactions: Allergies hydrocodone bitartrate [From Vicodin] Adverse Reaction (Verified 01/06/19 14:55) Other HALLUCINATIONS oxycodone HCl [From Percocet] Adverse Reaction (Verified 01/06/19 14:55) Other HALLUCINATIONS tramadol Adverse Reaction (Verified 01/06/19 14:55) Other HALLUCINATIONS Home Medications: Ambulatory Orders Medication Instructions Recorded Amlodipine Besylate 2.5 mg PO DAILY 07/10/15 Aspirin E.C. [Ecotrin] 81 mg PO QHS 07/10/15 Atenolol [Tenormin] 100 mg PO DAILY 07/10/15 Clonidine HCl 0.1 mg PO DAILY 07/10/15 Hydrochlorothiazide [Hctz] 25 mg PO DAILY 07/10/15 Isosorbide DN [Isordil] 5 mg PO TIDCM 07/10/15 Levothyroxine [Synthroid] 112 mcg PO SUMOTUWETHFR 07/10/15 Levothyroxine [Synthroid] 224 mcg PO SA 07/10/15 Mometasone/Formoterol [Dulera 200 2 puff INHALATION BID 07/10/15 Mcg/5 Mcg Inhaler] Montelukast [Singulair] 10 mg PO QHS 07/10/15 Cholecalciferol (Vitamin D3) 4,000 unit PO DAILY 02/15/17 [Vitamin D3] Fexofenadine HCl [Yelena Allergy] 180 mg PO QHS 02/15/17 Gabapentin [Neurontin] 300 mg PO QHS 02/16/17 metFORMIN (XR) [Glucophage Xr] 500 mg PO DAILY 06/02/17 Mometasone Furoate [Nasonex] 2 spray NASAL DAILY 10/06/17 Loperamide [Imodium] 2 mg PO Q2H PRN PRN cap 10/08/17 Ascorbic Acid [Vitamin C] 1,000 mg PO QHS 07/08/18 Cranberry Fruit Concentrate [Azo 2 tab PO DAILY 07/08/18 Cranberry] Duloxetine Hcl [Cymbalta] 30 mg PO BID 07/08/18 Esomeprazole Mag Trihydrate 40 mg PO BID 07/08/18 [Nexium] Meclizine HCl 12.5 mg PO TID PRN 07/08/18 Methenamine Hippurate 1 gm PO QHS 07/08/18 ezetimibe 10 mg tablet 10 mg PO QHS 10/14/18 Cyanocobalamin (Vitamin B-12) 2,000 mcg PO DAILY 11/02/18 [Vitamin B-12] Vitamin E 400 units PO DAILY 11/02/18 silver sulfadiazine 1 % topical 1 applic TOPICAL BID #25 g 12/14/18 cream - Family History Maternal Family History: Family History (Last Reviewed 12/28/18 @ 09:12 by Monique Melgar) Brother Breast cancer Kidney disease Heart disease Father Heart disease No pertinent history Paternal Family History: Family History (Last Reviewed 12/28/18 @ 09:12 by Monique Melgar) Brother Breast cancer Kidney disease Heart disease Father Heart disease Heart Disease Smoking Status: Former smoker Review of Systems Constitutional: Denies: Chills, Fever, Weight Change Eyes: Denies: Pain, Vision Change HEENT: Denies: Difficulty Hearing, Difficulty Swallowing, Sinus Congestion Cardiovascular: Denies: Chest Pain, Palpitations Respiratory: Denies: Cough, Shortness of Breath Gastrointestinal: Denies: Diarrhea, Nausea, Vomiting Genitourinary: Denies: Dysuria, Hematuria Skin: Reports: Wounds - See HPI Endocrine: Denies: Heat/ Cold Intolerance, Polydipsia, Polyuria Hematologic/ Lymphatic: Denies: Easy Bruising, Easy Bleeding - Physical Exam Vital Signs Temp Pulse Resp BP 97.5 F L 68 22 H 152/67 H 01/06/19 14:30 01/06/19 14:30 01/06/19 14:30 01/06/19 14:30 General: Alert, Oriented x3, Cooperative, No apparent distress HEENT: Atraumatic Oral: Moist Mucosa Neck: Supple Lungs: Clear to auscultation, Normal air movement, No rhonchi, No wheeze, No rales Cardiovascular: Regular rate, Regular Rhythm Abdomen: Soft, Non Tender, Obese Extremities: No clubbing, No cyanosis, No edema Skin: Ulcer/ Wound - Nonhealing postsurgical dehisced wound of right breast noted. Adherent slough to wound bed edges and to wound bed itself. Extensive undermining present as documented in wound documentation. No odor, erythema, warmth, or pain noted at this time. Wound Measurements and Assessment - Nurse 1 - General Ulcer Measurement Start: 01/06/19 14:29 Freq: Status: Active Protocol: Activity Type Activity Date Activity User E-Sign Co-Sign Detail Recorded Client Recorded Date Recorded By Document 01/06/19 14:30 DL [id number] 01/06/19 14:52 DL 01/06/19 14:30 Wound Center Nurse 1 [Ulcer Assessment] #1 R Breast -Current Size (cm) - Length 2 -Current Size (cm) - Width 8 -Current Size (cm) - Depth 2.5 -Total Square Cm 16 -Photo Taken Yes -Undermining/Tunneling Starts (O' 1 clock) -Undermining/Tunneling Ends (O'clock) 7 -Maximum Distance (cm) 3.4 -Exudate Amt Medium -Exudate Type Serosanguineous -Wound Margin Thickened & Rolled Under -Granulation Amt Medium (34-66%) -Granulation Quality [place] -Necrosis Amt Medium (34-66%) -Necrotic Tissue Type Adherent Slough -Structure Exposed N/A -Texture (Mere-wound Skin Appearance) Scarring -Moisture (Mere-wound Skin Appearance No Abnormality ) -Color (Mere-wound Skin Appearance) No Abnormality -Temperature (Mere-wound Skin No Abnormality Appearance) (Pt Warm) -Tenderness on Palpation (Mere-wound No Skin Appearance) -Ulcer Cleansing Rinsed/ Irrigated with Saline -Foul Odor after Cleansing No -Anesthetic Used 5% Lidocaine Gel - Nurse 2 - General Ulcer CM Notes Start: 01/06/19 14:29 Freq: Status: Active Protocol: Activity Type Activity Date Activity User E-Sign Co-Sign Detail Recorded Client Recorded Date Recorded By Document 01/06/19 15:50 AN [id number] 01/06/19 15:55 AN 01/06/19 15:50 Wound Center Nurse 2 [Procedure/Treatment] -Time 15:52 -Correct Patient Yes -Correct Side, Site, Position Yes -Correct Procedure Yes -Procedure Performed Yes -Type of Procedure Debridement -Clinical Debridement Subcutaneous -Post Debridement Size (cm) - Length 2.5 -Post Debridement Size (cm) - Width 9.5 -Post Debridement Size (cm) - Depth 3.2 -Total Square Cm 23.75 -Wound/Ulcer Outcome Not Healed -Ulcer Cleansing Rinsed/ Irrigated with Saline -Foul Odor after Cleansing No -Bioengineered Tissue No [See Physician Procedure note for Specifics] Pain Scale: 0-10 Numeric [Pain] -Is Patient Pain Free? Yes Musculoskeletal: No Tenderness to Palpation of Joints or Extremities, No Muscle Wasting Neurological: Neuro grossly intact Psych/Mental Status: Normal Affect, Appropriate, Alert and oriented to time, place, person, mood and affect Debridement Note Post-Debridement Measurements/Treatment WC - Nurse 2 - General Ulcer CM Notes Start: 01/06/19 14:29 Freq: Status: Active Protocol: Activity Type Activity Date Activity User E-Sign Co-Sign Detail Recorded Client Recorded Date Recorded By Document 01/06/19 15:50 AN [id number] 01/06/19 15:55 AN 01/06/19 15:50 Wound Center Nurse 2 #1 R Breast -Time 15:52 -Correct Patient Yes -Correct Side, Site, Position Yes -Correct Procedure Yes -Procedure Performed Yes -Type of Procedure Debridement -Clinical Debridement Subcutaneous -Post Debridement Size (cm) - Length 2.5 -Post Debridement Size (cm) - Width 9.5 -Post Debridement Size (cm) - Depth 3.2 -Total Square Cm 23.75 -Wound/Ulcer Outcome Not Healed -Ulcer Cleansing Rinsed/ Irrigated with Saline -Foul Odor after Cleansing No -Bioengineered Tissue No Pain Scale: 0-10 Numeric Is Patient Pain Free? Yes Wound debrided: Postsurgical wound right breast Laterality: Right Type of Debridement: Excisional debridement Anesthesia Used: 5% Lidocaine Gel Depth: in the subcutaneous layer, to muscle Percentage of wound debrided: 100 Instrument Used: 7mm curette Tissue Removed: Slough and devitalized tissue Severity: Fat Layer Exposed Amount of bleeding with debridement: Mild Bleeding Controlled with: Pressure Patient tolerated procedure well Assessment/Plan Active Problems (Last Reviewed 12/28/18 @ 09:12 by Monique Melgar) Nonhealing surgical wound (Acute) Assessment: Nonhealing postsurgical wound to right breast status post right mastectomy 11/19/2018 Plan: The patient was seen and examined at the wound center today and was upd ated on the plan of care. A subcutaneous/muscular debridement was performed today. The patient tolerated the procedure well. The patients wound care will consist of applying wet to dry dressing and applying for a wound vac. Wound cultures were collected. Patient educated on the importance of diet on wound healing and instructed to increase protein and vitamin C intake. Patient verbalized understanding. Patient will follow up at wound healing center in one week or sooner if needed. This note was generated with [employer] dictation software. It may contain incorrect words, spelling, and punctuation that were not noted in checking the note before signing. Code Visit Office Visits / Consults: [id number] OV L4 Est 111xxx-113xx: [id number] Briana musc/fascia 20 sq cm/<
[2019-01-06 21:10] LABS: M R Staph aureus DNA By PCR Negative (Negative); Probe Check PASS; Staph aureus DNA By PCR POSITIVE (Negative)
== END 2019-01-12 23:59 ==
LOC: WC 14:16
PROVIDERS: Family Provider Internal Medicine; PCP Internal Medicine; Visit Provider Nurse Practitioner Family
DX: T81.89XA Other complications of procedures, not elsewhere classified, initial encounter (principal); Y83.8 Other surgical procedures as the cause of abnormal reaction of the patient, or of later complication, without mention of misadventure at the time of the procedure; Z17.0 Estrogen receptor positive status [ER+]; C50.411 Malignant neoplasm of upper-outer quadrant of right female breast; E66.9 Obesity, unspecified; Z68.33 Body mass index [BMI] 33.0-33.9, adult; Z71.3 Dietary counseling and surveillance; E78.5 Hyperlipidemia, unspecified; E11.9 Type 2 diabetes mellitus without complications; I10 Essential (primary) hypertension; K21.9 Gastro-esophageal reflux disease without esophagitis; J44.9 Chronic obstructive pulmonary disease, unspecified; E03.9 Hypothyroidism, unspecified; Z79.899 Other long term (current) drug therapy; Z79.84 Long term (current) use of oral hypoglycemic drugs; Z87.891 Personal history of nicotine dependence
CPT/HCPCS: 11043; 87070; 87075; 87077; 87186; 87205; 87640; 99202; G0463

== ENCOUNTER 2019-02-10 16:15 | Outpatient (RCR) | payer MEDICARE, OTHER, SELFPAY ==
[2018-12-14 15:07] VITALS: BMI 33.4
[2019-01-13 01:17] VITALS: BP 152/67; PULSE 68; RESP 22; TEMP 36.4
[2019-01-13 16:38] VITALS: BP 99/73; PULSE 89; RESP 16; TEMP 36.2; BMI 33.8
--- NOTE | 2019-01-13 17:55 | PCM.WC.PN ---
(1) Nonhealing surgical wound Status: Acute Current Visit: Yes Code(s): T81.89XA - Other complications of procedures, not elsewhere classified, initial encounter (2) Malignant neoplasm of upper-outer quadrant of right female breast Status: Acute Current Visit: Yes Qualifiers: Code(s): C50.411 - Malignant neoplasm of upper-outer quadrant of right female breast (3) Diabetes mellitus, type II Status: Chronic Current Visit: No Code(s): E11.9 - Type 2 diabetes mellitus without complications (4) GERD (gastroesophageal reflux disease) Status: Chronic Current Visit: No Qualifiers: Code(s): K21.9 - Gastro-esophageal reflux disease without esophagitis (5) HTN (hypertension) Status: Chronic Current Visit: No Qualifiers: Code(s): I10 - Essential (primary) hypertension (6) Obesity (BMI 30-39.9) Status: Chronic Current Visit: No Code(s): E66.9 - Obesity, unspecified Type of Wound Date of Service: 01/13/19 Chief Complaint: Nonhealing postsurgical wound from right mastectomy with sentinel lymph node biopsy on 11/19/2018 History of Wound: Patient is an 83 year old female who presents to the wound center status post right mastectomy with sentinel lymph node biopsy on 11/19/18. On 01/03/[address] patient [address] Hsieh's office and stated that her incision had been leaking fluid, the scab fell off, and an odor was present for about a week. Patient states that Dr. Hsieh's office did a debridment and packed it and sent her here for a consult for a wound vac. Patient denies any pain/discomfort to the area at this time. She denies any other acute concerns at this time. Patient also denies fevers, chills, nausea, vomiting, chest pain, palpatations, pressure or shortness of breath. Progress of Wound: Patient's postsurgical wound is improving, she is consistent with utilizing the wet-to-dry dressings. The wound VAC has not been approved by insurance yet at this time. She was started on Augmentin for staph aureus that grew in her wound culture and is tolerating the antibiotic well. - Physical Exam Vital Signs Temp Pulse Resp BP 97.1 F L 89 16 99/73 01/13/19 16:38 01/13/19 16:38 01/13/19 16:38 01/13/19 16:38 General: Alert, Oriented x3, Cooperative, No apparent distress HEENT: Atraumatic Neck: Supple Lungs: Clear to auscultation Cardiovascular: Regular rate Abdomen: Soft, Non Tender Extremities: No clubbing, No cyanosis, No edema Skin: Ulcer/ Wound - Postsurgical wound right breast with adherent slough to wound bed, otherwise no signs of infection at this time, no purulent drainage or erythema or warmth noted Wound Measurements and Assessment WC - Nurse 1 - General Ulcer Measurement Start: 01/13/19 16:37 Freq: Status: Active Protocol: Activity Type Activity Date Activity User E-Sign Co-Sign Detail Recorded Client Recorded Date Recorded By Document 01/13/19 16:38 MW [id number] 01/13/19 17:01 MW 01/13/19 16:38 Wound Center Nurse 1 [Ulcer Assessment] #1 R Breast -Combined with other wound No -Current Size (cm) - Length 1.0 -Current Size (cm) - Width 7.8 -Current Size (cm) - Depth 2.3 -Total Square Cm 7.80 -Photo Taken No -Epithelialization None Present -Tunneling No -Undermining/Tunneling No -Circular Undermining No -Exudate Amt Small -Exudate Type Serosanguineous -Wound Margin Flat & Intact -Granulation Amt Medium (34-66%) -Granulation Quality Red -Slough/Fibrin No -Necrosis Amt Small (1-33%) -Necrotic Tissue Type Adherent Slough -Structure Exposed N/A -Texture (Mere-wound Skin Appearance) Assessed, Scarring -Moisture (Mere-wound Skin Appearance No Abnormality, ) Assessed -Color (Mere-wound Skin Appearance) No Abnormality, Assessed -Temperature (Mere-wound Skin No Abnormality Appearance) (Pt Warm) -Tenderness on Palpation (Mere-wound Yes Skin Appearance) -Ulcer Cleansing Rinsed/ Irrigated with Saline -Foul Odor after Cleansing No -Anesthetic Used 4% Lidocaine Solution [Edema Assessment] -Lower Limb Edema Present No WC - Nurse 2 - General Ulcer CM Notes Start: 01/13/19 16:37 Freq: Status: Active Protocol: Activity Type Activity Date Activity User E-Sign Co-Sign Detail Recorded Client Recorded Date Recorded By Document 01/13/19 17:26 AN [id number] 01/13/19 17:30 AN 01/13/19 17:26 Wound Center Nurse 2 [Procedure/Treatment] #1 R Breast -Time 17:27 -Correct Patient Yes -Correct Side, Site, Position Yes -Correct Procedure Yes -Procedure Performed Yes -Type of Procedure Debridement -Clinical Debridement Subcutaneous -Post Debridement Size (cm) - Length 2.4 -Post Debridement Size (cm) - Width 7.5 -Post Debridement Size (cm) - Depth 3.2 -Total Square Cm 18.00 -Wound/Ulcer Outcome Not Healed -Ulcer Cleansing Rinsed/ Irrigated with Saline -Foul Odor after Cleansing No -Bioengineered Tissue No -Bleeding Controlled with Pressure -Treatment Response Procedure Tolerated Well [See Physician Procedure note for Specifics] Pain Scale: 0-10 Numeric [Pain] -Is Patient Pain Free? Yes Neurological: Neuro grossly intact Psych/Mental Status: Normal Affect, Appropriate, Alert and oriented to time, place, person, mood and affect Debridement Note Post-Debridement Measurements/Treatment WC - Nurse 2 - General Ulcer CM Notes Start: 01/13/19 16:37 Freq: Status: Active Protocol: Activity Type Activity Date Activity User E-Sign Co-Sign Detail Recorded Client Recorded Date Recorded By Document 01/13/19 17:26 AN [id number] 01/13/19 17:30 AN 01/13/19 17:26 Wound Center Nurse 2 #1 R Breast -Time 17:27 -Correct Patient Yes -Correct Side, Site, Position Yes -Correct Procedure Yes -Procedure Performed Yes -Type of Procedure Debridement -Clinical Debridement Subcutaneous -Post Debridement Size (cm) - Length 2.4 -Post Debridement Size (cm) - Width 7.5 -Post Debridement Size (cm) - Depth 3.2 -Total Square Cm 18.00 -Wound/Ulcer Outcome Not Healed -Ulcer Cleansing Rinsed/ Irrigated with Saline -Foul Odor after Cleansing No -Bioengineered Tissue No -Bleeding Controlled with Pressure -Treatment Response Procedure Tolerated Well Pain Scale: 0-10 Numeric Is Patient Pain Free? Yes Wound debrided: Right breast postsurgical wound Laterality: Right Type of Debridement: Excisional debridement Anesthesia Used: 5% Lidocaine Gel Depth: in the subcutaneous layer Percentage of wound debrided: 100 Instrument Used: 5mm curette Tissue Removed: Slough and devitalized tissue Severity: Fat Layer Exposed Amount of bleeding with debridement: Mild Bleeding Controlled with: Pressure Patient tolerated procedure well Assessment/Plan Active Problems (Last Reviewed 12/28/18 @ 09:12 by Monique Melgar) Nonhealing surgical wound (Acute) Malignant neoplasm of upper-outer quadrant of right female breast (Acute) Assessment: Nonhealing postsurgical wound to right breast status post right mastectomy 11/19/2018 Plan: The patient was seen and examined at the wound center today and was updated on the plan of care. A subcutaneous debridement was performed today. The patient tolerated the procedure well. The patients wound care will consist of applying wet to dry dressing and applying for a wound vac. Wound cultures were collected prior and showed staph aureus and patient was started on Augmentin which she is tolerating well. Patient educated on the importance of diet on wound healing and instructed to increase protein and vitamin C intake. Patient verbalized understanding. Patient will follow up at wound healing center in one week or sooner if needed. This note was generated with [employer] dictation software. It may contain incorrect words, spelling, and punctuation that were not noted in checking the note before signing. Code Visit 111xxx-113xx: [id number] Briana subq tissue 20 sq cm/< Add On Codes: 08575 Briana subq tissue add-on
[2019-01-20 16:25] VITALS: BP 156/66; PULSE 64; RESP 18; TEMP 36.1; BMI 33.8
[2019-01-24 14:38] VITALS: BP 138/69; PULSE 60; RESP 16; TEMP 36.6; BMI 33.8
--- NOTE | 2019-01-25 09:41 | PCM.WC.PN ---
(1) Nonhealing surgical wound Status: Acute Current Visit: Yes Code(s): T81.89XA - Other complications of procedures, not elsewhere classified, initial encounter (2) Malignant neoplasm of upper-outer quadrant of right female breast Status: Acute Current Visit: Yes Qualifiers: Code(s): C50.411 - Malignant neoplasm of upper-outer quadrant of right female breast (3) Diabetes mellitus, type II Status: Chronic Current Visit: No Code(s): E11.9 - Type 2 diabetes mellitus without complications (4) GERD (gastroesophageal reflux disease) Status: Chronic Current Visit: No Qualifiers: Code(s): K21.9 - Gastro-esophageal reflux disease without esophagitis (5) HTN (hypertension) Status: Chronic Current Visit: No Qualifiers: Code(s): I10 - Essential (primary) hypertension (6) Obesity (BMI 30-39.9) Status: Chronic Current Visit: No Code(s): E66.9 - Obesity, unspecified Type of Wound Date of Service: 01/20/19 Chief Complaint: Nonhealing postsurgical wound from right mastectomy with sentinel lymph node biopsy on 11/19/2018 History of Wound: Patient is an 83 year old female who presents to the wound center status post right mastectomy with sentinel lymph node biopsy on 11/19/18. On 01/03/[address] patient followed up with [address] Hsieh's office and stated that her incision had been leaking fluid, the scab fell off, and an odor was present for about a week. Patient states that Dr. Hsieh's office did a debridment and packed it and sent her here for a consult for a wound vac. Patient denies any pain/discomfort to the area at this time. She denies any other acute concerns at this time. Patient also denies fevers, chills, nausea, vomiting, chest pain, palpatations, pressure or shortness of breath. Progress of Wound: Patient's postsurgical wound is stable, she is consistent with utilizing the wet-to-dry dressings. The wound VAC has approved and will be applied today. She was started on Augmentin for staph aureus that grew in her wound culture and is tolerating the antibiotic well. Denies any signs of infection at this time. - Physical Exam Vital Signs Temp Pulse Resp BP 98 F 60 16 138/69 H 01/24/19 14:38 01/24/19 14:38 01/24/19 14:38 01/24/19 14:38 General: Alert, Oriented x3, Cooperative, No apparent distress HEENT: Atraumatic Oral: Moist Mucosa Lungs: Clear to auscultation Cardiovascular: Regular rate Abdomen: Soft, Non Tender Extremities: No clubbing, No cyanosis, No edema Skin: Ulcer/ Wound - Postop nonhealing ulceration right breast with some adherent slough, no signs of infection at this time. Wound Measurements and Assessment WC - Nurse 1 - General Ulcer Measurement Start: 01/13/19 16:37 Freq: Status: Active Protocol: Activity Type Activity Date Activity User E-Sign Co-Sign Detail Recorded Client Recorded Date Recorded By Document 01/24/19 14:38 DV [id number] 01/24/19 14:58 DV 01/24/19 14:38 Wound Center Nurse 1 [Ulcer Assessment] #1 R Breast -Combined with other wound No -Current Size (cm) - Length 1.2 -Current Size (cm) - Width 6.2 -Current Size (cm) - Depth 2.7 -Total Square Cm 7.44 -Photo Taken No -Epithelialization Small 1-33% -Tunneling No -Undermining/Tunneling Yes -Undermining/Tunneling Starts (O' 3 clock) -Undermining/Tunneling Ends (O'clock) 7 -Maximum Distance (cm) 3.0 -Circular Undermining No -Classification - Thickness Full Thickness without Exposed Support Structure -Exudate Amt Small -Exudate Type Serous -Wound Margin Epibole -Granulation Amt Large (67-100%) -Granulation Quality Red -Slough/Fibrin Yes -Necrosis Amt None Present (0 %) -Necrotic Tissue Type Adherent Slough -Structure Exposed None/Limited to Skin Breakdown -Texture (Mere-wound Skin Appearance) Assessed, Scarring -Moisture (Mere-wound Skin Appearance Assessed, ) Weeping -Color (Mere-wound Skin Appearance) Assessed, Erythema -Temperature (Mere-wound Skin No Abnormality Appearance) (Pt Warm) -Tenderness on Palpation (Mere-wound No Skin Appearance) -Ulcer Cleansing Rinsed/ Irrigated with Saline -Foul Odor after Cleansing No Neurological: Neuro grossly intact Psych/Mental Status: Normal Affect, Appropriate, Alert and oriented to time, place, person, mood and affect Debridement Note Post-Debridement Measurements/Treatment WC - Nurse 2 - General Ulcer CM Notes Start: 01/13/19 16:37 Freq: Status: Active Protocol: Activity Type Activity Date Activity User E-Sign Co-Sign Detail Recorded Client Recorded Date Recorded By Document 01/13/19 17:26 AN [id number] 01/13/19 17:30 AN Document 01/20/19 16:48 AN [id number] 01/20/19 16:49 AN 01/13/19 01/20/19 17:26 16:48 Wound Center Nurse 2 #1 R Breast -Time 17:27 16:49 -Correct Patient Yes Yes -Correct Side, Site, Position Yes Yes -Correct Procedure Yes Yes -Procedure Performed Yes Yes -Type of Procedure Debridement Debridement -Clinical Debridement Subcutaneous Subcutaneous -Post Debridement Size (cm) - Length 2.4 2.5 -Post Debridement Size (cm) - Width 7.5 7.5 -Post Debridement Size (cm) - Depth 3.2 3.4 -Total Square Cm 18.00 18.75 -Wound/Ulcer Outcome Not Healed Not Healed -Ulcer Cleansing Rinsed/ Rinsed/ Irrigated with Irrigated with Saline Saline -Foul Odor after Cleansing No No -Bioengineered Tissue No No -Bleeding Controlled with Pressure -Offloading Yes -Treatment Response Procedure Procedure Tolerated Well Tolerated Well Pain Scale: 0-10 Numeric Is Patient Pain Free? Yes Yes Wound debrided: Healing postop wound to right breast Laterality: Right Type of Debridement: Excisional debridement Anesthesia Used: 5% Lidocaine Gel Depth: in the subcutaneous layer Percentage of wound debrided: 100 Instrument Used: 5mm curette Tissue Removed: Slough and devitalized tissue Severity: Fat Layer Exposed Amount of bleeding with debridement: Mild Bleeding Controlled with: Pressure Patient tolerated procedure well Assessment/Plan Active Problems (Last Reviewed 12/28/18 @ 09:12 by Monique Melgar) Nonhealing surgical wound (Acute) Malignant neoplasm of upper-outer quadrant of right female breast (Acute) Assessment: Nonhealing postsurgical wound to right breast status post right mastectomy 11/19/2018 Plan: The patient was seen and examined at the wound center today and was updated on the plan of care. A subcutaneous debridement was performed today. The patient tolerated the procedure well. The patients wound care will consist of applying wound vac 125 mmHg with black foam change biweekly. Wound cultures were collected prior and showed staph aureus and patient was started on Augmentin which she is tolerating well. Patient educated on the importance of diet on wound healing and instructed to increase protein and vitamin C intake. Instructed patient that if wound VAC comes off, then she should utilize wet-to-dry dressings. Patient verbalized understanding. Patient will follow up at wound healing center in one week with provider and on Thursday for wound VAC change or sooner if needed. This note was generated with [employer] dictation software. It may contain incorrect words, spelling, and punctuation that were not noted in checking the note before signing. Code Visit 111xxx-113xx: [id number] Briana subq tissue 20 sq cm/<
[2019-01-27 16:23] VITALS: BP 141/62; PULSE 59; RESP 20; TEMP 36.4; BMI 33.8
--- NOTE | 2019-01-27 20:57 | PN.PCM_ITS ---
(1) Nonhealing surgical wound Status: Acute Current Visit: Yes Code(s): T81.89XA - Other complications of procedures, not elsewhere classified, initial encounter (2) Malignant neoplasm of upper-outer quadrant of right female breast Status: Acute Current Visit: Yes Qualifiers: Code(s): C50.411 - Malignant neoplasm of upper-outer quadrant of right female breast (3) Diabetes mellitus, type II Status: Chronic Current Visit: No Code(s): E11.9 - Type 2 diabetes mellitus without complications (4) GERD (gastroesophageal reflux disease) Status: Chronic Current Visit: No Qualifiers: Code(s): K21.9 - Gastro-esophageal reflux disease without esophagitis (5) HTN (hypertension) Status: Chronic Current Visit: No Qualifiers: Code(s): I10 - Essential (primary) hypertension (6) Obesity (BMI 30-39.9) Status: Chronic Current Visit: No Code(s): E66.9 - Obesity, unspecified Type of Wound Date of Service: 01/27/19 Chief Complaint: Nonhealing postsurgical wound from right mastectomy with sentinel lymph node biopsy on 11/19/2018 History of Wound: Patient is an 83 year old female who presents to the wound center status post right mastectomy with sentinel lymph node biopsy on 11/19/18. On 01/03/19 patient followed up with Dr[address] Hsieh's office and stated that her incision had been leaking fluid, the scab fell off, and an odor was present for about a week. Patient states that Dr. Hsieh's office did a debridment and packed it and sent her here for a consult for a wound vac. Patient denies any pain/discomfort to the area at this time. She denies any other acute concerns at this time. Patient also denies fevers, chills, nausea, vomiting, chest pain, palpatations, pressure or shortness of breath. Progress of Wound: Patient's postsurgical wound is improving, she is tolerating the wound VAC. She completed her Augmentin. She notes only small amount of drainage in the VAC canister. Denies any signs of infection at this time. - Physical Exam Vital Signs Temp Pulse Resp BP 97.6 F L 59 L 20 H 141/62 H 01/27/19 16:23 01/27/19 16:23 01/27/19 16:23 01/27/19 16:23 General: Alert, Oriented x3, Cooperative, No apparent distress HEENT: Atraumatic Oral: Moist Mucosa Lungs: Clear to auscultation Cardiovascular: Regular rate Abdomen: Soft, Non Tender Extremities: No clubbing, No cyanosis, No edema Skin: Ulcer/ Wound - Surgical wound right breast small amount of adherent slough, otherwise no signs of infection at this time Wound Measurements and Assessment WC - Nurse 1 - General Ulcer Measurement Start: 01/13/19 16:37 Freq: Status: Active Protocol: Activity Type Activity Date Activity User E-Sign Co-Sign Detail Recorded Client Recorded Date Recorded By Document 01/27/19 16:23 DL [id number] 01/27/19 16:34 DL 01/27/19 16:23 Wound Center Nurse 1 [Ulcer Assessment] #1 R Breast -Current Size (cm) - Length 0.8 -Current Size (cm) - Width 6 -Current Size (cm) - Depth 1.5 -Total Square Cm 4.8 -Photo Taken No -Exudate Amt Small -Exudate Type Serosanguineous -Wound Margin Distinct, Outline Attached -Granulation Amt Medium (34-66%) -Granulation Quality Red -Necrosis Amt Medium (34-66%) -Necrotic Tissue Type Adherent Slough -Structure Exposed N/A -Texture (Mere-wound Skin Appearance) Scarring -Moisture (Mere-wound Skin Appearance No Abnormality ) -Color (Mere-wound Skin Appearance) No Abnormality -Temperature (Mere-wound Skin No Abnormality Appearance) (Pt Warm) -Tenderness on Palpation (Mere-wound No Skin Appearance) -Ulcer Cleansing Wound Cleanser -Foul Odor after Cleansing No -Anesthetic Used 4% Lidocaine Solution WC - Nurse 2 - General Ulcer CM Notes Start: 01/13/19 16:37 Freq: Status: Active Protocol: Activity Type Activity Date Activity User E-Sign Co-Sign Detail Recorded Client Recorded Date Recorded By Document 01/27/19 16:48 AN [id number] 01/27/19 16:52 AN 01/27/19 16:48 Wound Center Nurse 2 [Procedure/Treatment] -Time 16:49 -Correct Patient Yes -Correct Side, Site, Position Yes -Correct Procedure Yes -Procedure Performed Yes -Type of Procedure Debridement -Clinical Debridement Subcutaneous -Post Debridement Size (cm) - Length 2.4 -Post Debridement Size (cm) - Width 6.0 -Post Debridement Size (cm) - Depth 2.6 -Total Square Cm 14.40 -Wound/Ulcer Outcome Not Healed -Bleeding Controlled with Pressure -Offloading No -Treatment Response Procedure Tolerated Well [See Physician Procedure note for Specifics] Pain Scale: 0-10 Numeric [Pain] -Is Patient Pain Free? Yes Neurological: Neuro grossly intact Psych/Mental Status: Normal Affect, Appropriate, Alert and oriented to time, place, person, mood and affect Debridement Note Post-Debridement Measurements/Treatment WC - Nurse 2 - General Ulcer CM Notes Start: 01/13/19 16:37 Freq: Status: Active Protocol: Activity Type Activity Date Activity User E-Sign Co-Sign Detail Recorded Client Recorded Date Recorded By Document 01/13/19 17:26 AN [id number] 01/13/19 17:30 AN Document 01/20/19 16:48 AN [id number] 01/20/19 16:49 AN Document 01/27/19 16:48 AN [id number] 01/27/19 16:52 AN 01/13/19 01/20/19 01/27/19 17:26 16:48 16:48 Wound Center Nurse 2 #1 R Breast -Time 17:27 16:49 16:49 -Correct Patient Yes Yes Yes -Correct Side, Site, Position Yes Yes Yes -Correct Procedure Yes Yes Yes -Procedure Performed Yes Yes Yes -Type of Procedure Debridement Debridement Debridement -Clinical Debridement Subcutaneous Subcutaneous Subcutaneous -Post Debridement Size (cm) - Length 2.4 2.5 2.4 -Post Debridement Size (cm) - Width 7.5 7.5 6.0 -Post Debridement Size (cm) - Depth 3.2 3.4 2.6 -Total Square Cm 18.00 18.75 14.40 -Wound/Ulcer Outcome Not Healed Not Healed Not Healed -Ulcer Cleansing Rinsed/ Rinsed/ Irrigated with Irrigated with Saline Saline -Foul Odor after Cleansing No No -Bioengineered Tissue No No -Bleeding Controlled with Pressure Pressure -Offloading Yes No -Treatment Response Procedure Procedure Procedure Tolerated Well Tolerated Well Tolerated Well Pain Scale: 0-10 Numeric Is Patient Pain Free? Yes Yes Yes Wound debrided: Nonhealing postop wound right breast Laterality: Right Type of Debridement: Excisional debridement Anesthesia Used: 5% Lidocaine Gel Depth: in the subcutaneous layer Percentage of wound debrided: 100 Instrument Used: 7mm curette Tissue Removed: Slough and devitalized tissue Severity: Fat Layer Exposed Amount of bleeding with debridement: Mild Bleeding Controlled with: Pressure Patient tolerated procedure well Assessment/Plan Active Problems (Last Reviewed 12/28/18 @ 09:12 by Monique Melgar) Nonhealing surgical wound (Acute) Malignant neoplasm of upper-outer quadrant of right female breast (Acute) Assessment: Nonhealing postsurgical wound to right breast status post right mastectomy 11/19/2018 Plan: The patient was seen and examined at the wound center today and was updated on the plan of care. A subcutaneous debridement was performed today. The patient tolerated the procedure well. The patients wound care will consist of applying wound vac 125 mmHg with black foam change biweekly. Wound cultures were collected prior and showed staph aureus and patient completed a course of Augmentin. Patient educated on the importance of diet on wound healing and instructed to increase protein and vitamin C intake. Instructed patient that if wound VAC comes off, then she should utilize wet-to-dry dressings. Patient verbalized understanding. Patient will follow up at wound healing center in one week with provider and on Thursday for wound VAC change or sooner if needed. This note was generated with [employer] dictation software. It may contain incorrect words, spelling, and punctuation that were not noted in checking the note before signing. Code Visit 111xxx-113xx: 06188 Briana subq tissue 20 sq cm/<
[2019-02-03 16:15] VITALS: BP 130/65; PULSE 70; RESP 18; TEMP 36.4; BMI 33.8
[2019-02-07 14:54] VITALS: BP 130/60; PULSE 63; RESP 18; TEMP 36.1; BMI 33.8
--- NOTE | 2019-02-09 16:59 | PN.PCM_ITS ---
(1) Nonhealing surgical wound Status: Acute Current Visit: Yes Code(s): T81.89XA - Other complications of procedures, not elsewhere classified, initial encounter (2) Malignant neoplasm of upper-outer quadrant of right female breast Status: Acute Current Visit: Yes Qualifiers: Code(s): C50.411 - Malignant neoplasm of upper-outer quadrant of right female breast (3) Diabetes mellitus, type II Status: Chronic Current Visit: No Code(s): E11.9 - Type 2 diabetes mellitus without complications (4) GERD (gastroesophageal reflux disease) Status: Chronic Current Visit: No Qualifiers: Code(s): K21.9 - Gastro-esophageal reflux disease without esophagitis (5) HTN (hypertension) Status: Chronic Current Visit: No Qualifiers: Code(s): I10 - Essential (primary) hypertension (6) Obesity (BMI 30-39.9) Status: Chronic Current Visit: No Code(s): E66.9 - Obesity, unspecified Type of Wound Date of Service: 02/03/19 Chief Complaint: Nonhealing postsurgical wound from right mastectomy with sentinel lymph node biopsy on 11/19/2018 History of Wound: Patient is an 83 year old female who presents to the wound center status post right mastectomy with sentinel lymph node biopsy on 11/19/18. On 01/03/19 patient followed up with Dr[address] Hsieh's office and stated that her incision had been leaking fluid, the scab fell off, and an odor was present for about a week. Patient states that Dr. Hsieh's office did a debridment and packed it and sent her here for a consult for a wound vac. Patient denies any pain/discomfort to the area at this time. She denies any other acute concerns at this time. Patient also denies fevers, chills, nausea, vomiting, chest pain, palpatations, pressure or shortness of breath. Progress of Wound: Patient's postsurgical wound is improving, she is tolerating the wound VAC. She completed her Augmentin. She notes only small amount of drainage in the VAC canister. Denies any signs of infection at this time. - Physical Exam Vital Signs Temp Pulse Resp BP 96.9 F L 63 18 130/60 H 02/07/19 14:54 02/07/19 14:54 02/07/19 14:54 02/07/19 14:54 General: Alert, Oriented x3, Cooperative, No apparent distress HEENT: Atraumatic Oral: Moist Mucosa Neck: Supple Lungs: Clear to auscultation Cardiovascular: Regular rate Abdomen: Soft Extremities: No clubbing, No cyanosis, No edema Skin: Ulcer/ Wound - Postsurgical wound right breast, see nursing documentation, no signs of infection at this time Wound Measurements and Assessment WC - Nurse 1 - General Ulcer Measurement Start: 01/13/19 16:37 Freq: Status: Active Protocol: Activity Type Activity Date Activity User E-Sign Co-Sign Detail Recorded Client Recorded Date Recorded By Document 02/07/19 14:54 DL [id number] 02/07/19 14:57 DL 02/07/19 14:54 Wound Center Nurse 1 [Ulcer Assessment] #1 R Breast -Exudate Amt Small -Exudate Type Serosanguineous -Texture (Mere-wound Skin Appearance) No Abnormality, Excoriation, Scarring -Moisture (Mere-wound Skin Appearance No Abnormality ) -Color (Mere-wound Skin Appearance) No Abnormality -Temperature (Mere-wound Skin No Abnormality Appearance) (Pt Warm) -Tenderness on Palpation (Mere-wound No Skin Appearance) -Ulcer Cleansing Wound Cleanser -Foul Odor after Cleansing No Neurological: Neuro grossly intact Psych/Mental Status: Normal Affect, Appropriate, Alert and oriented to time, place, person, mood and affect Debridement Note Post-Debridement Measurements/Treatment - Nurse 2 - General Ulcer CM Notes Start: 01/13/19 16:37 Freq: Status: Active Protocol: Activity Type Activity Date Activity User E-Sign Co-Sign Detail Recorded Client Recorded Date Recorded By Document 01/13/19 17:26 AN [id number] 01/13/19 17:30 AN Document 01/20/19 16:48 AN [id number] 01/20/19 16:49 AN Document 01/27/19 16:48 AN [id number] 01/27/19 16:52 AN 01/13/19 01/20/19 01/27/19 17:26 16:48 16:48 Wound Center Nurse 2 #1 R Breast -Time 17:27 16:49 16:49 -Correct Patient Yes Yes Yes -Correct Side, Site, Position Yes Yes Yes -Correct Procedure Yes Yes Yes -Procedure Performed Yes Yes Yes -Type of Procedure Debridement Debridement Debridement -Clinical Debridement Subcutaneous Subcutaneous Subcutaneous -Post Debridement Size (cm) - Length 2.4 2.5 2.4 -Post Debridement Size (cm) - Width 7.5 7.5 6.0 -Post Debridement Size (cm) - Depth 3.2 3.4 2.6 -Total Square Cm 18.00 18.75 14.40 -Wound/Ulcer Outcome Not Healed Not Healed Not Healed -Ulcer Cleansing Rinsed/ Rinsed/ Irrigated with Irrigated with Saline Saline -Foul Odor after Cleansing No No -Bioengineered Tissue No No -Bleeding Controlled with Pressure Pressure -Offloading Yes No -Treatment Response Procedure Procedure Procedure Tolerated Well Tolerated Well Tolerated Well Pain Scale: 0-10 Numeric Is Patient Pain Free? Yes Yes Yes Wound debrided: Right breast postsurgical wound Laterality: Right Type of Debridement: Excisional debridement Anesthesia Used: 5% Lidocaine Gel Depth: in the subcutaneous layer Percentage of wound debrided: 100 Instrument Used: 7mm curette Tissue Removed: Slough and devitalized tissue Severity: Fat Layer Exposed Amount of bleeding with debridement: Mild Bleeding Controlled with: Pressure Patient tolerated procedure well Assessment/Plan Active Problems (Last Reviewed 12/28/18 @ 09:12 by Monique Melgar) Nonhealing surgical wound (Acute) Malignant neoplasm of upper-outer quadrant of right female breast (Acute) Assessment: Nonhealing postsurgical wound to right breast status post right mastectomy 11/19/2018 Plan: The patient was seen and examined at the wound center today and was updated on the plan of care. A subcutaneous debridement was performed today. The patient tolerated the procedure well. The patients wound care will consist of applying wound vac 150 mmHg with black foam change biweekly. Wound cultures were collected prior and showed staph aureus and patient completed a course of Augmentin. Patient educated on the importance of diet on wound healing and instructed to increase protein and vitamin C intake. Instructed patient that if wound VAC comes off, then she should utilize Aquacel Ag dressing changes. Patient verbalized understanding. Patient will follow up at wound healing center in one week with provider and on Thursday for wound VAC change or sooner if needed. This note was generated with [employer] dictation software. It may contain incorrect words, spelling, and punctuation that were not noted in checking the note before signing. Code Visit 111xxx-113xx: 34676 Briana subq tissue 20 sq cm/<
[2019-02-10 16:34] VITALS: BP 125/65; PULSE 63; RESP 18; TEMP 36.2; BMI 33.8
--- NOTE | 2019-02-15 13:42 | PN.PCM_ITS ---
(1) Nonhealing surgical wound Status: Acute Code(s): T81.89XA - Other complications of procedures, not elsewhere classified, initial encounter (2) Malignant neoplasm of upper-outer quadrant of right female breast Status: Acute Qualifiers: Code(s): C50.411 - Malignant neoplasm of upper-outer quadrant of right female breast (3) Diabetes mellitus, type II Status: Chronic Code(s): E11.9 - Type 2 diabetes mellitus without complications (4) GERD (gastroesophageal reflux disease) Status: Chronic Qualifiers: Code(s): K21.9 - Gastro-esophageal reflux disease without esophagitis (5) HTN (hypertension) Status: Chronic Qualifiers: Code(s): I10 - Essential (primary) hypertension (6) Obesity (BMI 30-39.9) Status: Chronic Code(s): E66.9 - Obesity, unspecified Type of Wound Date of Service: 02/10/19 Chief Complaint: Nonhealing postsurgical wound from right mastectomy with sentinel lymph node biopsy on 11/19/2018 History of Wound: Patient is an 83 year old female who presents to the wound center status post right mastectomy with sentinel lymph node biopsy on 11/19/18. On 01/03/[address] patient followed up [address] Hsieh's office and stated that her incision had been leaking fluid, the scab fell off, and an odor was present for about a week. Patient states that Dr. Hsieh's office did a debridment and packed it and sent her here for a consult for a wound vac. Patient denies any pain/discomfort to the area at this time. She denies any other acute concerns at this time. Patient also denies fevers, chills, nausea, vomiting, chest pain, palpatations, pressure or shortness of breath. Progress of Wound: Patient's postsurgical wound is stable, she is tolerating the wound VAC, however did have a 4-day break due to some surrounding skin excoriation which has now resolved. She completed her Augmentin. She notes only small amount of drainage in the VAC canister. Denies any signs of infection at this time. - Physical Exam Vital Signs Temp Pulse Resp BP 97.1 F L 63 18 125/65 H 02/10/19 16:34 02/10/19 16:34 02/10/19 16:34 02/10/19 16:34 General: Alert, Oriented x3, Cooperative, No apparent distress HEENT: Atraumatic Oral: Moist Mucosa Lungs: Clear to auscultation Cardiovascular: Regular rate Abdomen: Soft, Non Tender Extremities: No clubbing, No cyanosis, No edema Skin: Ulcer/ Wound - Postsurgical wound right breast with adherent slough, no signs of infection at this time. Neurological: Neuro grossly intact Psych/Mental Status: Normal Affect, Appropriate, Alert and oriented to time, place, person, mood and affect Debridement Note Post-Debridement Measurements/Treatment WC - Nurse 2 - General Ulcer CM Notes Start: 01/13/19 16:37 Freq: Status: Active Protocol: Activity Type Activity Date Activity User E-Sign Co-Sign Detail Recorded Client Recorded Date Recorded By Document 01/13/19 17:26 AN [id number] 01/13/19 17:30 AN Document 01/20/19 16:48 AN [id number] 01/20/19 16:49 AN Document 01/27/19 16:48 AN [id number] 01/27/19 16:52 AN Document 02/10/19 14:55 MW [id number] 02/10/19 17:39 MW 01/13/19 01/20/19 01/27/19 17:26 16:48 16:48 Wound Center Nurse 2 #1 R Breast -Time 17:27 16:49 16:49 -Correct Patient Yes Yes Yes -Correct Side, Site, Position Yes Yes Yes -Correct Procedure Yes Yes Yes -Procedure Performed Yes Yes Yes -Type of Procedure Debridement Debridement Debridement -Clinical Debridement Subcutaneous Subcutaneous Subcutaneous -Post Debridement Size (cm) - Length 2.4 2.5 2.4 -Post Debridement Size (cm) - Width 7.5 7.5 6.0 -Post Debridement Size (cm) - Depth 3.2 3.4 2.6 -Total Square Cm 18.00 18.75 14.40 -Wound/Ulcer Outcome Not Healed Not Healed Not Healed -Ulcer Cleansing Rinsed/ Rinsed/ Irrigated with Irrigated with Saline Saline -Foul Odor after Cleansing No No -Bioengineered Tissue No No -Bleeding Controlled with Pressure Pressure -Offloading Yes No -Treatment Response Procedure Procedure Procedure Tolerated Well Tolerated Well Tolerated Well Pain Scale: 0-10 Numeric Is Patient Pain Free? Yes Yes Yes 02/10/19 14:55 Wound Center Nurse 2 #1 R Breast -Time 17:38 -Correct Patient Yes -Correct Side, Site, Position Yes -Correct Procedure Yes -Procedure Performed Yes -Type of Procedure Debridement -Clinical Debridement Subcutaneous -Post Debridement Size (cm) - Length 2.0 -Post Debridement Size (cm) - Width 4.8 -Post Debridement Size (cm) - Depth 2.0 -Total Square Cm 9.60 -Wound/Ulcer Outcome Not Healed -Ulcer Cleansing Rinsed/ Irrigated with Saline -Foul Odor after Cleansing No -Bioengineered Tissue No -Bleeding Controlled with Pressure -Offloading No -Treatment Response Procedure Tolerated Well Pain Scale: 0-10 Numeric Is Patient Pain Free? Yes Wound debrided: Breast postop wound Laterality: Right Type of Debridement: Excisional debridement Anesthesia Used: 5% Lidocaine Gel Depth: in the subcutaneous layer Percentage of wound debrided: 100 Instrument Used: 7mm curette Tissue Removed: Slough and devitalized tissue Severity: Fat Layer Exposed Amount of bleeding with debridement: Mild Bleeding Controlled with: Pressure Patient tolerated procedure well Assessment/Plan Assessment: Nonhealing postsurgical wound to right breast status post right mastectomy 11/19/2018 Plan: The patient was seen and examined at the wound center today and was updated on the plan of care. A subcutaneous debridement was performed today. The patient tolerated the procedure well. The patients wound care will consist of applying wound vac 150 mmHg with black foam change biweekly. Wound cultures were collected prior and showed staph aureus and patient completed a course of Augmentin. Patient educated on the importance of diet on wound healing and instructed to increase protein and vitamin C intake. Instructed patient that if wound VAC comes off, then she should utilize Aquacel Ag dressing changes. Patient verbalized understanding. Patient will follow up at wound healing center in one week with provider and on Thursday for wound VAC change or sooner if needed. This note was generated with [employer] software. It may contain incorrect words, spelling, and punctuation that were not noted in checking the note before signing. Code Visit 111xxx-113xx: [id number] Briana subq tissue 20 sq cm/<
== END 2019-02-12 23:59 ==
LOC: WC 16:15
PROVIDERS: Family Provider Internal Medicine; PCP Internal Medicine; Visit Provider Nurse Practitioner Family
DX: T81.89XA Other complications of procedures, not elsewhere classified, initial encounter (principal); Y83.8 Other surgical procedures as the cause of abnormal reaction of the patient, or of later complication, without mention of misadventure at the time of the procedure; C50.411 Malignant neoplasm of upper-outer quadrant of right female breast; E11.9 Type 2 diabetes mellitus without complications; K21.9 Gastro-esophageal reflux disease without esophagitis; I10 Essential (primary) hypertension; E66.9 Obesity, unspecified; Z68.33 Body mass index [BMI] 33.0-33.9, adult; Z71.3 Dietary counseling and surveillance
CPT/HCPCS: 11042; 11045; 97605; 99212; G0463

== ENCOUNTER 2019-03-10 16:15 | Outpatient (RCR) | payer MEDICARE, OTHER, SELFPAY ==
[2018-12-14 15:07] VITALS: BMI 33.4
[2019-02-13 01:02] VITALS: BP 125/65; PULSE 63; RESP 18; TEMP 36.2
[2019-02-15 17:31] VITALS: BP 126/67; PULSE 67; RESP 18; TEMP 36.5; BMI 33.8
[2019-02-17 16:33] VITALS: BP 138/67; PULSE 81; RESP 18; TEMP 36.3; BMI 33.8
[2019-02-21 15:01] VITALS: BP 133/68; PULSE 65; RESP 18; TEMP 36.4; BMI 33.8
--- NOTE | 2019-02-23 17:27 | PCM.WC.PN ---
(1) Nonhealing surgical wound Status: Acute Current Visit: Yes Code(s): T81.89XA - Other complications of procedures, not elsewhere classified, initial encounter Comment: right breast (2) Diabetes mellitus, type II Status: Chronic Current Visit: No Code(s): E11.9 - Type 2 diabetes mellitus without complications (3) GERD (gastroesophageal reflux disease) Status: Chronic Current Visit: No Qualifiers: Code(s): K21.9 - Gastro-esophageal reflux disease without esophagitis (4) HLD (hyperlipidemia) Status: Chronic Current Visit: No Qualifiers: Code(s): E78.5 - Hyperlipidemia, unspecified (5) HTN (hypertension) Status: Chronic Current Visit: No Qualifiers: Code(s): I10 - Essential (primary) hypertension (6) Hypothyroidism Status: Chronic Current Visit: No Qualifiers: Code(s): E03.9 - Hypothyroidism, unspecified (7) Obesity (BMI 30-39.9) Status: Chronic Current Visit: No Code(s): E66.9 - Obesity, unspecified Type of Wound Date of Service: 02/17/19 Chief Complaint: Nonhealing postsurgical wound from right mastectomy with sentinel lymph node biopsy on 11/19/2018 History of Wound: Patient is an 83 year old female who presents to the wound center status post right mastectomy with sentinel lymph node biopsy on 11/19/18. On 01/03/19 patient followed up [address] Hsieh's office and stated that her incision had been leaking fluid, the scab fell off, and an odor was present for about a week. Patient states that Dr. Hsieh's office did a debridment and packed it and sent her here for a consult for a wound vac. Patient denies any pain/discomfort to the area at this time. She denies any other acute concerns at this time. Patient also denies fevers, chills, nausea, vomiting, chest pain, palpatations, pressure or shortness of breath. Progress of Wound: Patient's postsurgical wound is improving, she is tolerating the wound VAC. She completed her Augmentin. She notes only small amount of drainage in the VAC canister. Denies any signs of infection at this time. - Physical Exam Vital Signs Temp Pulse Resp BP 97.5 F L 65 18 133/68 H 02/21/19 15:01 02/21/19 15:01 02/21/19 15:01 02/21/19 15:01 General: Alert, Oriented x3, Cooperative, No apparent distress HEENT: Atraumatic Oral: Moist Mucosa Lungs: Clear to auscultation Cardiovascular: Regular rate Abdomen: Soft, Non Tender Extremities: No clubbing, No cyanosis, No edema Skin: Ulcer/ Wound - See nursing documentation, wound is beefy red without any signs of infection at this time Wound Measurements and Assessment WC - Nurse 1 - General Ulcer Measurement Start: 02/15/19 17:31 Freq: Status: Active Protocol: Activity Type Activity Date Activity User E-Sign Co-Sign Detail Recorded Client Recorded Date Recorded By Document 02/21/19 15:01 MW [id number] 02/21/19 15:03 MW 02/21/19 15:01 Wound Center Nurse 1 [Ulcer Assessment] #1 R Breast -Texture (Mere-wound Skin Appearance) Assessed, Scarring -Moisture (Mere-wound Skin Appearance No Abnormality ) -Color (Mere-wound Skin Appearance) Assessed -Temperature (Mere-wound Skin No Abnormality Appearance) (Pt Warm) -Tenderness on Palpation (Mere-wound No Skin Appearance) -Ulcer Cleansing soap and water -Foul Odor after Cleansing No [Edema Assessment] -Lower Limb Edema Present No Neurological: Neuro grossly intact Psych/Mental Status: Normal Affect, Appropriate, Alert and oriented to time, place, person, mood and affect Debridement Note Post-Debridement Measurements/Treatment WC - Nurse 2 - General Ulcer CM Notes Start: 02/15/19 17:31 Freq: Status: Active Protocol: Activity Type Activity Date Activity User E-Sign Co-Sign Detail Recorded Client Recorded Date Recorded By Document 02/17/19 17:18 AN [id number] 02/17/19 17:23 AN 02/17/19 17:18 Wound Center Nurse 2 #1 R Breast -Time 17:22 -Correct Patient Yes -Correct Side, Site, Position Yes -Correct Procedure Yes -Procedure Performed Yes -Type of Procedure Debridement -Clinical Debridement Subcutaneous -Post Debridement Size (cm) - Length 1.8 -Post Debridement Size (cm) - Width 4.5 -Post Debridement Size (cm) - Depth 1.7 -Total Square Cm 8.10 -Wound/Ulcer Outcome Not Healed -Ulcer Cleansing Rinsed/ Irrigated with Saline -Foul Odor after Cleansing No -Bioengineered Tissue No -Bleeding Controlled with Pressure -Offloading No -Treatment Response Procedure Tolerated Well Pain Scale: 0-10 Numeric Is Patient Pain Free? Yes Wound debrided: Right breast postsurgical wound Type of Debridement: Excisional debridement Anesthesia Used: 5% Lidocaine Gel Depth: Down to and including healthy tissue, in the subcutaneous layer Percentage of wound debrided: 100 Instrument Used: 5mm curette Tissue Removed: Slough and devitalized tissue Severity: Fat Layer Exposed Amount of bleeding with debridement: Mild Bleeding Controlled with: Pressure Patient tolerated procedure well Assessment/Plan Active Problems (Last Reviewed 12/28/18 @ 09:12 by Monique Melgar) Nonhealing surgical wound (Acute) right breast Assessment: Nonhealing postsurgical wound to right breast status post right mastectomy 11/19/2018 Plan: The patient was seen and examined at the wound center today and was updated on the plan of care. A subcutaneous debridement was performed today. The patient tolerated the procedure well. The patients wound care will consist of applying wound vac 125 mmHg with black foam change biweekly. Wound cultures were collected prior and showed staph aureus and patient completed a course of Augmentin. Patient educated on the importance of diet on wound healing and instructed to increase protein and vitamin C intake. Instructed patient that if wound VAC comes off, then she should utilize Aquacel Ag dressing changes. Patient verbalized understanding. Patient will follow up at wound healing center in one week with provider and on Thursday for wound VAC change or sooner if needed. This note was generated with [employer] dictation software. It may contain incorrect words, spelling, and punctuation that were not noted in checking the note before signing. Code Visit 111xxx-113xx: [id number] Briana subq tissue 20 sq cm/<
[2019-02-24 16:06] VITALS: BP 151/64; PULSE 67; RESP 16; TEMP 35.7; BMI 33.8
[2019-02-28 13:28] VITALS: BP 164/67; PULSE 78; RESP 18; TEMP 36.3; BMI 33.8
--- NOTE | 2019-03-02 13:58 | PCM.WC.PN ---
(1) Nonhealing surgical wound Status: Acute Current Visit: Yes Code(s): T81.89XA - Other complications of procedures, not elsewhere classified, initial encounter Comment: right breast (2) Diabetes mellitus, type II Status: Chronic Current Visit: No Code(s): E11.9 - Type 2 diabetes mellitus without complications (3) GERD (gastroesophageal reflux disease) Status: Chronic Current Visit: No Qualifiers: Code(s): K21.9 - Gastro-esophageal reflux disease without esophagitis (4) HLD (hyperlipidemia) Status: Chronic Current Visit: No Qualifiers: Code(s): E78.5 - Hyperlipidemia, unspecified (5) HTN (hypertension) Status: Chronic Current Visit: No Qualifiers: Code(s): I10 - Essential (primary) hypertension (6) Hypothyroidism Status: Chronic Current Visit: No Qualifiers: Code(s): E03.9 - Hypothyroidism, unspecified (7) Obesity (BMI 30-39.9) Status: Chronic Current Visit: No Code(s): E66.9 - Obesity, unspecified Type of Wound Date of Service: 02/24/19 Chief Complaint: Nonhealing postsurgical wound from right mastectomy with sentinel lymph node biopsy on 11/19/2018 History of Wound: Patient is an 83 year old female who presents to the wound center status post right mastectomy with sentinel lymph node biopsy on 11/19/18. On 01/03/19 patient followed up with Dr[address] Hsieh's office and stated that her incision had been leaking fluid, the scab fell off, and an odor was present for about a week. Patient states that Dr. Hsieh's office did a debridment and packed it and sent her here for a consult for a wound vac. Patient denies any pain/discomfort to the area at this time. She denies any other acute concerns at this time. Patient also denies fevers, chills, nausea, vomiting, chest pain, palpatations, pressure or shortness of breath. Progress of Wound: Patient's postsurgical wound is improving, she is tolerating the wound VAC. She completed her Augmentin. She notes only small amount of drainage in the VAC canister. Denies any signs of infection at this time. - Physical Exam Vital Signs Temp Pulse Resp BP 97.3 F L 78 18 164/67 H 02/28/19 13:28 02/28/19 13:28 02/28/19 13:28 02/28/19 13:28 General: Alert, Oriented x3, Cooperative, No apparent distress HEENT: Atraumatic Oral: Moist Mucosa Lungs: Clear to auscultation Cardiovascular: Regular rate Abdomen: Soft, Non Tender Extremities: No clubbing, No cyanosis, No edema Skin: Ulcer/ Wound - Right breast postsurgical wound with a small amount of adherent slough, no signs of infection at this time Wound Measurements and Assessment WC - Nurse 1 - General Ulcer Measurement Start: 02/15/19 17:31 Freq: Status: Active Protocol: Activity Type Activity Date Activity User E-Sign Co-Sign Detail Recorded Client Recorded Date Recorded By Document 02/28/19 13:28 RB [id number] 02/28/19 13:30 RB 02/28/19 13:28 Wound Center Nurse 1 [Ulcer Assessment] #1 R Breast -Combined with other wound No -Tunneling No -Undermining/Tunneling No -Circular Undermining No -Exudate Amt Small -Exudate Type Serosanguineous -Wound Margin Thickened & Rolled Under -Granulation Amt Medium (34-66%) -Granulation Quality [place] -Necrosis Amt Small (1-33%) -Necrotic Tissue Type Adherent Slough -Structure Exposed N/A -Texture (Mere-wound Skin Appearance) Assessed, Excoriation, Scarring -Moisture (Mere-wound Skin Appearance Assessed ) -Color (Mere-wound Skin Appearance) Assessed -Temperature (Mere-wound Skin No Abnormality Appearance) (Pt Warm) -Tenderness on Palpation (Mere-wound No Skin Appearance) -Ulcer Cleansing Wound Cleanser -Foul Odor after Cleansing No Neurological: Neuro grossly intact Psych/Mental Status: Normal Affect, Appropriate, Alert and oriented to time, place, person, mood and affect Debridement Note Post-Debridement Measurements/Treatment WC - Nurse 2 - General Ulcer CM Notes Start: 02/15/19 17:31 Freq: Status: Active Protocol: Activity Type Activity Date Activity User E-Sign Co-Sign Detail Recorded Client Recorded Date Recorded By Document 02/17/19 17:18 AN [id number] 02/17/19 17:23 AN 02/17/19 17:18 Wound Center Nurse 2 #1 R Breast -Time 17:22 -Correct Patient Yes -Correct Side, Site, Position Yes -Correct Procedure Yes -Procedure Performed Yes -Type of Procedure Debridement -Clinical Debridement Subcutaneous -Post Debridement Size (cm) - Length 1.8 -Post Debridement Size (cm) - Width 4.5 -Post Debridement Size (cm) - Depth 1.7 -Total Square Cm 8.10 -Wound/Ulcer Outcome Not Healed -Ulcer Cleansing Rinsed/ Irrigated with Saline -Foul Odor after Cleansing No -Bioengineered Tissue No -Bleeding Controlled with Pressure -Offloading No -Treatment Response Procedure Tolerated Well Pain Scale: 0-10 Numeric Is Patient Pain Free? Yes Wound debrided: Postsurgical wound right breast Type of Debridement: Excisional debridement Anesthesia Used: 5% Lidocaine Gel Depth: in the subcutaneous layer Percentage of wound debrided: 100 Instrument Used: 7mm curette Tissue Removed: Slough and devitalized tissue Severity: Fat Layer Exposed Amount of bleeding with debridement: Mild Bleeding Controlled with: Pressure Patient tolerated procedure well Assessment/Plan Active Problems (Last Reviewed 12/28/18 @ 09:12 by Monique Melgar) Nonhealing surgical wound (Acute) right breast Assessment: Nonhealing postsurgical wound to right breast status post right mastectomy 11/19/2018 Plan: The patient was seen and examined at the wound center today and was updated on the plan of care. A subcutaneous debridement was performed today. The patient tolerated the procedure well. The patients wound care will consist of applying wound vac 125 mmHg with black foam change biweekly. Wound cultures were collected prior and showed staph aureus and patient completed a course of Augmentin. Patient educated on the importance of diet on wound healing and instructed to increase protein and vitamin C intake. Instructed patient that if wound VAC comes off, then she should utilize Aquacel Ag dressing changes. Patient verbalized understanding. Patient will follow up at wound healing center in one week with provider and on Thursday for wound VAC change or sooner if needed. This note was generated with [employer] dictation software. It may contain incorrect words, spelling, and punctuation that were not noted in checking the note before signing. Code Visit 111xxx-113xx: [id number] Briana subq tissue 20 sq cm/<
[2019-03-03 16:15] VITALS: BP 130/87; PULSE 67; RESP 18; TEMP 35.8; BMI 33.8
--- NOTE | 2019-03-03 21:30 | PN.PCM_ITS ---
(1) Nonhealing surgical wound Status: Acute Code(s): T81.89XA - Other complications of procedures, not elsewhere classified, initial encounter Comment: right breast (2) Diabetes mellitus, type II Status: Chronic Code(s): E11.9 - Type 2 diabetes mellitus without complications (3) GERD (gastroesophageal reflux disease) Status: Chronic Qualifiers: Code(s): K21.9 - Gastro-esophageal reflux disease without esophagitis (4) HLD (hyperlipidemia) Status: Chronic Qualifiers: Code(s): E78.5 - Hyperlipidemia, unspecified (5) HTN (hypertension) Status: Chronic Qualifiers: Code(s): I10 - Essential (primary) hypertension (6) Hypothyroidism Status: Chronic Qualifiers: Code(s): E03.9 - Hypothyroidism, unspecified (7) Obesity (BMI 30-39.9) Status: Chronic Code(s): E66.9 - Obesity, unspecified Type of Wound Date of Service: 03/03/19 Chief Complaint: Nonhealing postsurgical wound from right mastectomy with sentinel lymph node biopsy on 11/19/2018 History of Wound: Patient is an 83 year old female who presents to the wound center status post right mastectomy with sentinel lymph node biopsy on 11/19/18. On 01/03/19 patient followed up with Dr. Hsieh's office and stated that her incision had been leaking fluid, the scab fell off, and an odor was present for about a week. Patient states that Dr. Hsieh's office did a debridment and packed it and sent her here for a consult for a wound vac. Patient denies any pain/discomfort to the area at this time. She denies any other acute concerns at this time. Patient also denies fevers, chills, nausea, vomiting, chest pain, palpatations, pressure or shortness of breath. Progress of Wound: Patient's postsurgical wound is improving, she is tolerating the wound VAC. Depth is improved and some hypergranular tissue, Will take a vac holiday. She completed her Augmentin. She notes only small amount of drainage in the VAC canister. Denies any signs of infection at this time. - Physical Exam Vital Signs Temp Pulse Resp BP 96.4 F L 67 18 130/87 H 03/03/19 16:15 03/03/19 16:15 03/03/19 16:15 03/03/19 16:15 General: Alert, Oriented x3, Cooperative, No apparent distress HEENT: Atraumatic Lungs: Clear to auscultation Cardiovascular: Regular rate Abdomen: Soft, Non Tender, Obese Extremities: No clubbing, No cyanosis, No edema Skin: Ulcer/ Wound - ulceration to right breast with some adherant slough and hypergranular tissue, no obvious signs of infection at this time. Neurological: Neuro grossly intact Psych/Mental Status: Normal Affect, Appropriate, Alert and oriented to time, place, person, mood and affect Debridement Note Post-Debridement Measurements/Treatment WC - Nurse 2 - General Ulcer CM Notes Start: 02/15/19 17:31 Freq: Status: Active Protocol: Activity Type Activity Date Activity User E-Sign Co-Sign Detail Recorded Client Recorded Date Recorded By Document 02/17/19 17:18 AN [id number] 02/17/19 17:23 AN Document 03/03/19 16:28 AN [id number] 03/03/19 16:34 AN 02/17/19 03/03/19 17:18 16:28 Wound Center Nurse 2 #1 R Breast -Time 17:22 16:29 -Correct Patient Yes Yes -Correct Side, Site, Position Yes Yes -Correct Procedure Yes Yes -Procedure Performed Yes Yes -Type of Procedure Debridement Debridement -Clinical Debridement Subcutaneous Subcutaneous -Post Debridement Size (cm) - Length 1.8 0.6 -Post Debridement Size (cm) - Width 4.5 2.8 -Post Debridement Size (cm) - Depth 1.7 0.6 -Total Square Cm 8.10 1.68 -Wound/Ulcer Outcome Not Healed Not Healed -Ulcer Cleansing Rinsed/ Rinsed/ Irrigated with Irrigated with Saline Saline -Foul Odor after Cleansing No No -Bioengineered Tissue No No -Bleeding Controlled with Pressure Pressure -Offloading No Yes -Treatment Response Procedure Procedure Tolerated Well Tolerated Well Pain Scale: 0-10 Numeric Is Patient Pain Free? Yes Yes Wound debrided: right postsurgical breast ulceration Laterality: Right Type of Debridement: Excisional debridement Anesthesia Used: 5% Lidocaine Gel Depth: in the subcutaneous layer Percentage of wound debrided: 100 Instrument Used: 7mm curette Tissue Removed: slough and devitalized tissue Severity: Fat Layer Exposed Amount of bleeding with debridement: Mild Bleeding Controlled with: Pressure Patient tolerated procedure well Assessment/Plan Assessment: Nonhealing postsurgical wound to right breast status post right mastectomy 11/19/2018 Plan: The patient was seen and examined at the wound center today and was updated on the plan of care. A subcutaneous debridement was performed today. The patient tolerated the procedure well. The patients wound care will consist of wound vac holiday. Change aquacel AG moistened and cover with gauze. Wound cultures were collected prior and showed staph aureus and patient completed a course of Augmentin. Patient educated on the importance of diet on wound healing and instructed to increase protein and vitamin C intake. Patient verbalized understanding. Patient will follow up at wound healing center in one week with provider or sooner if needed. This note was generated with [employer] dictation software. It may contain incorrect words, spelling, and punctuation that were not noted in checking the note before signing. Code Visit 111xxx-113xx: [id number] Briana subq tissue 20 sq cm/<
[2019-03-10 16:29] VITALS: BP 144/66; PULSE 62; RESP 18; TEMP 36.3; BMI 33.8
--- NOTE | 2019-03-10 16:31 | WC ---
WOUND VEIL AND STRIPS LEFT IN PLACE NO WOUND MEASUREMENT TAKEN
--- NOTE | 2019-03-16 13:32 | PCM.WC.PN ---
(1) Nonhealing surgical wound Status: Acute Code(s): T81.89XA - Other complications of procedures, not elsewhere classified, initial encounter Comment: right breast (2) Diabetes mellitus, type II Status: Chronic Code(s): E11.9 - Type 2 diabetes mellitus without complications (3) GERD (gastroesophageal reflux disease) Status: Chronic Qualifiers: Code(s): K21.9 - Gastro-esophageal reflux disease without esophagitis (4) HLD (hyperlipidemia) Status: Chronic Qualifiers: Code(s): E78.5 - Hyperlipidemia, unspecified (5) HTN (hypertension) Status: Chronic Qualifiers: Code(s): I10 - Essential (primary) hypertension (6) Hypothyroidism Status: Chronic Qualifiers: Code(s): E03.9 - Hypothyroidism, unspecified (7) Obesity (BMI 30-39.9) Status: Chronic Code(s): E66.9 - Obesity, unspecified Type of Wound Date of Service: 03/10/19 Chief Complaint: Nonhealing postsurgical wound from right mastectomy with sentinel lymph node biopsy on 11/19/2018 History of Wound: Patient is an 83 year old female who presents to the wound center status post right mastectomy with sentinel lymph node biopsy on 11/19/18. On 01/03/[address] patient followed up with [address] Hsieh's office and stated that her incision had been leaking fluid, the scab fell off, and an odor was present for about a week. Patient states that Dr. Hsieh's office did a debridment and packed it and sent her here for a consult for a wound vac. Patient denies any pain/discomfort to the area at this time. She denies any other acute concerns at this time. Patient also denies fevers, chills, nausea, vomiting, chest pain, palpatations, pressure or shortness of breath. Progress of Wound: Patient's postsurgical wound is improving, still on wound VAC holiday. She completed her Augmentin. She notes only small amount of drainage. Denies any signs of infection at this time. - Physical Exam Vital Signs Temp Pulse Resp BP 97.3 F L 62 18 144/66 H 03/10/19 16:29 03/10/19 16:29 03/10/19 16:29 03/10/19 16:29 General: Alert, Oriented x3, Cooperative, No apparent distress HEENT: Atraumatic Oral: Moist Mucosa Lungs: Clear to auscultation Cardiovascular: Regular rate Abdomen: Soft, Non Tender Extremities: No clubbing, No cyanosis, No edema Skin: Ulcer/ Wound - see nursing documention, some adhernat slough, no signs of infection at this time. Neurological: Neuro grossly intact Psych/Mental Status: Normal Affect, Appropriate, Alert and oriented to time, place, person, mood and affect Debridement Note Post-Debridement Measurements/Treatment WC - Nurse 2 - General Ulcer CM Notes Start: 02/15/19 17:31 Freq: Status: Active Protocol: Activity Type Activity Date Activity User E-Sign Co-Sign Detail Recorded Client Recorded Date Recorded By Document 02/17/19 17:18 AN [id number] 02/17/19 17:23 AN Document 03/03/19 16:28 AN [id number] 03/03/19 16:34 AN Document 03/10/19 16:42 AN [id number] 03/10/19 16:43 AN 02/17/19 03/03/19 03/10/19 17:18 16:28 16:42 Wound Center Nurse 2 #1 R Breast -Time 17:22 16:29 16:42 -Correct Patient Yes Yes Yes -Correct Side, Site, Position Yes Yes Yes -Correct Procedure Yes Yes Yes -Procedure Performed Yes Yes Yes -Type of Procedure Debridement Debridement Debridement -Clinical Debridement Subcutaneous Subcutaneous Subcutaneous -Post Debridement Size (cm) - Length 1.8 0.6 0.8 -Post Debridement Size (cm) - Width 4.5 2.8 2.5 -Post Debridement Size (cm) - Depth 1.7 0.6 0.5 -Total Square Cm 8.10 1.68 2.00 -Wound/Ulcer Outcome Not Healed Not Healed Not Healed -Ulcer Cleansing Rinsed/ Rinsed/ Rinsed/ Irrigated with Irrigated with Irrigated with Saline Saline Saline -Foul Odor after Cleansing No No No -Bioengineered Tissue No No No -Bleeding Controlled with Pressure Pressure Pressure -Offloading No Yes Yes -Treatment Response Procedure Procedure Procedure Tolerated Well Tolerated Well Tolerated Well Pain Scale: 0-10 Numeric Is Patient Pain Free? Yes Yes Yes Wound debrided: right breast post op wound Laterality: Right Type of Debridement: Excisional debridement Anesthesia Used: 5% Lidocaine Gel Depth: in the subcutaneous layer Percentage of wound debrided: 100 Instrument Used: 7mm curette Tissue Removed: slough and devitalized tissue Severity: Fat Layer Exposed Amount of bleeding with debridement: Mild Bleeding Controlled with: Pressure Patient tolerated procedure well Assessment/Plan Assessment: Nonhealing postsurgical wound to right breast status post right mastectomy 11/19/2018 Plan: The patient was seen and examined at the wound center today and was updated on the plan of care. A subcutaneous debridement was performed today. The patient tolerated the procedure well. The patients wound care will consist of wound vac holiday. Change aquacel AG moistened and cover with gauze. Wound cultures were collected prior and showed staph aureus and patient completed a course of Augmentin. Patient educated on the importance of diet on wound healing and instructed to increase protein and vitamin C intake. Patient verbalized understanding. Patient will follow up at wound healing center in one week with provider or sooner if needed. This note was generated with [employer] dictation software. It may contain incorrect words, spelling, and punctuation that were not noted in checking the note before signing. Code Visit [id number]: [id number] Briana subq tissue 20 sq cm/<
== END 2019-03-14 23:59 ==
LOC: WC 16:15
PROVIDERS: Family Provider Internal Medicine; PCP Internal Medicine; Visit Provider Nurse Practitioner Family
DX: T81.89XA Other complications of procedures, not elsewhere classified, initial encounter (principal); Y83.8 Other surgical procedures as the cause of abnormal reaction of the patient, or of later complication, without mention of misadventure at the time of the procedure; K21.9 Gastro-esophageal reflux disease without esophagitis; E11.9 Type 2 diabetes mellitus without complications; E78.5 Hyperlipidemia, unspecified; E66.9 Obesity, unspecified
CPT/HCPCS: 11042; 97605; 99212; 99213; G0463

== ENCOUNTER 2019-03-17 15:18 | Outpatient (RCR) | payer MEDICARE, OTHER, SELFPAY ==
[2018-12-14 15:07] VITALS: BMI 33.4
[2019-03-15 00:55] VITALS: BP 144/66; PULSE 62; RESP 18; TEMP 36.3
[2019-03-17 16:26] VITALS: BP 133/61; PULSE 62; RESP 16; TEMP 35.1; BMI 33.8
--- NOTE | 2019-03-17 17:35 | PN.PCM_ITS ---
(1) Nonhealing surgical wound Status: Acute Code(s): T81.89XA - Other complications of procedures, not elsewhere classified, initial encounter Comment: right breast (2) Malignant neoplasm of upper-outer quadrant of right female breast Status: Acute Qualifiers: Code(s): C50.411 - Malignant neoplasm of upper-outer quadrant of right female breast (3) Anxiety and depression Status: Chronic Code(s): F41.8 - Other specified anxiety disorders (4) Diabetes mellitus, type II Status: Chronic Code(s): E11.9 - Type 2 diabetes mellitus without complications (5) GERD (gastroesophageal reflux disease) Status: Chronic Qualifiers: Code(s): K21.9 - Gastro-esophageal reflux disease without esophagitis (6) HTN (hypertension) Status: Chronic Qualifiers: Code(s): I10 - Essential (primary) hypertension (7) Obesity (BMI 30-39.9) Status: Chronic Code(s): E66.9 - Obesity, unspecified Type of Wound Date of Service: 03/17/19 Chief Complaint: Nonhealing postsurgical wound from right mastectomy with sentinel lymph node biopsy on 11/19/2018 History of Wound: Patient is an 83 year old female who presents to the wound center status post right mastectomy with sentinel lymph node biopsy on 11/19/18. On 01/03/19 patient followed up with Dr. Hsieh's office and stated that her incision had been leaking fluid, the scab fell off, and an odor was present for about a week. Patient states that Dr. Hsieh's office did a debridment and packed it and sent her here for a consult for a wound vac. Patient denies any pain/discomfort to the area at this time. She denies any other acute concerns at this time. Patient also denies fevers, chills, nausea, vomiting, chest pain, palpatations, pressure or shortness of breath. Progress of Wound: Patient's postsurgical wound is improving, she is tolerating the dressings. Denies any signs of infection at this time. - Physical Exam Vital Signs Temp Pulse Resp BP 95.1 F L 62 16 133/61 H 03/17/19 16:26 03/17/19 16:26 03/17/19 16:26 03/17/19 16:26 General: Alert, Oriented x3, Cooperative, No apparent distress HEENT: Atraumatic Oral: Moist Mucosa Lungs: Clear to auscultation, Normal air movement Cardiovascular: Regular rate Abdomen: Soft, Non Tender Extremities: No clubbing, No cyanosis, No edema Skin: Ulcer/ Wound - See nursing documentation, small amount of slough to right postsurgical wound Neurological: Neuro grossly intact Psych/Mental Status: Normal Affect, Appropriate, Alert and oriented to time, place, person, mood and affect Debridement Note Post-Debridement Measurements/Treatment WC - Nurse 2 - General Ulcer CM Notes Start: 03/17/19 16:26 Freq: Status: Active Protocol: Activity Type Activity Date Activity User E-Sign Co-Sign Detail Recorded Client Recorded Date Recorded By Document 03/17/19 16:38 AN [id number] 03/17/19 16:41 AN 03/17/19 16:38 Wound Center Nurse 2 #1 R Breast -Time 16:39 -Correct Patient Yes -Correct Side, Site, Position Yes -Correct Procedure Yes -Procedure Performed Yes -Type of Procedure Debridement -Clinical Debridement Subcutaneous -Post Debridement Size (cm) - Length 0.2 -Post Debridement Size (cm) - Width 1.2 -Post Debridement Size (cm) - Depth 0.1 -Total Square Cm 0.24 -Wound/Ulcer Outcome Not Healed -Bleeding Controlled with Pressure -Treatment Response Procedure Tolerated Well Pain Scale: 0-10 Numeric Is Patient Pain Free? Yes Wound debrided: Breast postsurgical wound Laterality: Right Type of Debridement: Excisional debridement Anesthesia Used: 5% Lidocaine Gel Depth: in the subcutaneous layer Percentage of wound debrided: 100 Instrument Used: 3mm curette Tissue Removed: Slough and devitalized tissue Severity: Fat Layer Exposed Amount of bleeding with debridement: Mild Bleeding Controlled with: Pressure Patient tolerated procedure well Assessment/Plan Assessment: Nonhealing postsurgical wound to right breast status post right mastectomy 11/19/2018 Plan: The patient was seen and examined at the wound center today and was updated on the plan of care. A subcutaneous debridement was performed today. The patient tolerated the procedure well. The patients wound care will consist of wound vac holiday. Change aquacel AG moistened and cover with gauze. Wound cultures were collected prior and showed staph aureus and patient completed a course of Augmentin. Patient educated on the importance of diet on wound healing and instructed to increase protein and vitamin C intake. Patient verbalized understanding. Patient will follow up at wound healing center in one week with provider or sooner if needed. This note was generated with [employer] dictation software. It may contain incorrect words, spelling, and punctuation that were not noted in checking the note before signing.
[2019-03-24 16:37] VITALS: BP 129/61; PULSE 63; RESP 16; TEMP 36; BMI 33.8
--- NOTE | 2019-03-24 20:09 | PCM.WC.PN ---
(1) Nonhealing surgical wound Status: Acute Code(s): T81.89XA - Other complications of procedures, not elsewhere classified, initial encounter Comment: right breast (2) Malignant neoplasm of upper-outer quadrant of right female breast Status: Acute Qualifiers: Code(s): C50.411 - Malignant neoplasm of upper-outer quadrant of right female breast (3) Anxiety and depression Status: Chronic Code(s): F41.8 - Other specified anxiety disorders (4) Diabetes mellitus, type II Status: Chronic Code(s): E11.9 - Type 2 diabetes mellitus without complications (5) GERD (gastroesophageal reflux disease) Status: Chronic Qualifiers: Code(s): K21.9 - Gastro-esophageal reflux disease without esophagitis (6) HTN (hypertension) Status: Chronic Qualifiers: Code(s): I10 - Essential (primary) hypertension (7) Obesity (BMI 30-39.9) Status: Chronic Code(s): E66.9 - Obesity, unspecified Type of Wound Date of Service: 03/24/19 Chief Complaint: Nonhealing postsurgical wound from right mastectomy with sentinel lymph node biopsy on 11/19/2018 History of Wound: Patient is an 83 year old female who presents to the wound center status post right mastectomy with sentinel lymph node biopsy on 11/19/18. On 01/03/19 patient followed up with Dr. Hsieh's office and stated that her incision had been leaking fluid, the scab fell off, and an odor was present for about a week. Patient states that Dr. Hsieh's office did a debridment and packed it and sent her here for a consult for a wound vac. Patient denies any pain/discomfort to the area at this time. She denies any other acute concerns at this time. Patient also denies fevers, chills, nausea, vomiting, chest pain, palpatations, pressure or shortness of breath. Progress of Wound: Patient's postsurgical wound is healed. Denies any signs of infection at this time. - Physical Exam Vital Signs Temp Pulse Resp BP 96.8 F L 63 16 129/61 H 03/24/19 16:37 03/24/19 16:37 03/24/19 16:37 03/24/19 16:37 General: Alert, Oriented x3, Cooperative, No apparent distress HEENT: Atraumatic Oral: Moist Mucosa Neck: Supple Lungs: Clear to auscultation, Normal air movement Cardiovascular: Regular rate, Regular Rhythm Abdomen: Soft, Non-Distended Skin: Ulcer/ Wound - healed Neurological: Neuro grossly intact Psych/Mental Status: Normal Affect, Appropriate, Alert and oriented to time, place, person, mood and affect Debridement Note Post-Debridement Measurements/Treatment WC - Nurse 2 - General Ulcer CM Notes Start: 03/17/19 16:26 Freq: Status: Active Protocol: Activity Type Activity Date Activity User E-Sign Co-Sign Detail Recorded Client Recorded Date Recorded By Document 03/17/19 16:38 AN [id number] 03/17/19 16:41 AN Document 03/24/19 17:03 AN [id number] 03/24/19 17:03 AN 03/17/19 03/24/19 16:38 17:03 Wound Center Nurse 2 #1 R Breast -Time 16:39 -Correct Patient Yes -Correct Side, Site, Position Yes -Correct Procedure Yes -Procedure Performed Yes -Type of Procedure Debridement -Clinical Debridement Subcutaneous -Post Debridement Size (cm) - Length 0.2 -Post Debridement Size (cm) - Width 1.2 -Post Debridement Size (cm) - Depth 0.1 -Total Square Cm 0.24 -Wound/Ulcer Outcome Not Healed -Bleeding Controlled with Pressure -Treatment Response Procedure Tolerated Well Pain Scale: 0-10 Numeric Is Patient Pain Free? Yes Yes Assessment/Plan Assessment: Nonhealing postsurgical wound to right breast status post right mastectomy 11/19/2018 Plan: The patient was seen and examined at the wound center today and was updated on the plan of care. Her wound is now healed without any signs of infection at this time. She will continue increasing her oral intake of protein and discussed importance of different interventions to consider to prevent new wounds from occurring. Patient will be discharged from the wound healing center and follow-up if new wounds occur. Code Visit Office Visits / Consults: [id number] OV L3 Est
== END 2019-04-14 23:59 ==
LOC: WC 15:18
PROVIDERS: Family Provider Internal Medicine; PCP Internal Medicine; Visit Provider Nurse Practitioner Family
DX: T81.89XA Other complications of procedures, not elsewhere classified, initial encounter (principal); Y83.8 Other surgical procedures as the cause of abnormal reaction of the patient, or of later complication, without mention of misadventure at the time of the procedure; K21.9 Gastro-esophageal reflux disease without esophagitis; E11.9 Type 2 diabetes mellitus without complications; E78.5 Hyperlipidemia, unspecified; E66.9 Obesity, unspecified; Z85.3 Personal history of malignant neoplasm of breast
CPT/HCPCS: 11042; 99212; G0463

== ENCOUNTER → 2019-05-09 08:40 | Outpatient (CLI) | payer MEDICARE, OTHER, SELFPAY ==
[2018-12-14 15:07] VITALS: BMI 33.4
--- NOTE | 2019-05-09 09:00 | RAD_ITS ---
Double contrast barium swallow. Patient swallowed barium without difficulty there is no evidence also of obstruction, no hiatal hernia or reflux noted and no evidence of stenosis or filling defect within the esophageal lumen. After that the patient was asked to swallow half tablet of barium followed by water which passed readily through the esophagus down into the stomach. RAD/Esophagus Only IMPRESSION: Negative barium swallow Electronically Signed: Alaina Cortez, at 10:05 EST Tel , Service support ,
== END ==
PROVIDERS: Family Provider Internal Medicine; PCP Internal Medicine; Referring Provider Internal Medicine Gastroenterology; Visit Provider Internal Medicine Gastroenterology
DX: R13.10 Dysphagia, unspecified (principal)
CPT/HCPCS: 74220

== ENCOUNTER 2019-07-29 12:37 | Inpatient (IN) | payer MEDICARE, OTHER, SELFPAY ==
[2018-12-14 15:07] VITALS: BMI 33.4
[2019-07-29] VITALS (7 sets, daily range): BP systolic 104–152; BP diastolic 38–81; PULSE 71–87; RESP 16–18; TEMP 36.6–38.3; O2SAT 93–96; BMI 34.1; BMI 33.7; BMI 34.2
--- NOTE | 2019-07-29 13:13 | RAD_ITS ---
STUDY: X-RAY CHEST REASON FOR EXAM: Female, 83 years old. WEAKNESS, FALL TECHNIQUE: AP and lateral views of the chest. COMPARISON: Comparison is made with prior study dated July 08, 2018. FINDINGS: The lungs are clear and expanded. There is no demonstrated pleural abnormality. There is borderline cardiomegaly. Normal mediastinum and farrah. Normal visualized pulmonary arteries. There is atherosclerotic calcification of the aortic arch with tortuosity. There are diffuse degenerative changes of the visualized thoracic spine. Normal visualized ribs, clavicles, and shoulders. There is no demonstrated abnormality of the visualized soft tissue structures of the upper abdomen. RAD/Chest PA and Lateral IMPRESSION: Borderline cardiomegaly. The lungs are clear. Electronically Signed: Shai Gonzalez, at 14:37 EST , Service support ,
--- NOTE | 2019-07-29 13:14 | EKG12_ITS ---
Test Reason : FALL Blood Pressure : / mmHG Vent. Rate : 072 BPM Atrial Rate : 072 BPM P-R Int : 166 ms QRS Dur : 134 ms QT Int : 416 ms P-R-T Axes : 033 -34 116 degrees QTc Int : 455 ms Normal sinus rhythm Left axis deviation Left bundle branch block Abnormal ECG Confirmed by CONOR CARVAJAL ([id number]), loan expeditor BRAYAN GARCIA ([id number]) on 08/01/2019 3:39:01 PM Referred By: JOSELYN Confirmed By:CONOR CARVAJAL
--- NOTE | 2019-07-29 13:15 | ED.VISSUMM ---
- ER Visit Summary Date of Service: 07/29/19 Chief Complaint: Weakness and fall History of Present Illness: The patient is a 83 F who presents with fall from weakness in her legs that occurred today. Daughter states that patient has a history of frequent urinary tract infections and currently is on antibiotics for urinary tract infection. Daughter states that the patient gets weak in her legs when she has a urinary tract infection. Patient states she attempted to get out of bed this morning and fell. Patient denies any head injury or loss of consciousness. Patient does admit to a mild headache. Patient does admit to some mild fevers at home. Physical Examination: Vital signs are stable. Patient has a temperature of 100.9. Patient is in no acute distress. Oral mucosa is pink and moist. Neck is supple. Trachea is midline. There is no JVD. Heart was regular rate and rhythm. Lungs are clear and equal bilaterally. Abdomen is soft. Bowel sounds are normal. There is no tenderness. Cranial nerves II through XII are intact. Strength is 5/5 bilaterally in the upper and lower extremities. There are no sensory deficits noted. Test Results: EKG shows a normal sinus rhythm with a rate of 70. There is a left bundle branch block pattern noted. This is unchanged compared to previous EKG dated 07/08/2018. CBC and comprehensive metabolic profile were essentially within normal limits. Urinalysis does not show any evidence of urinary tract infection. Troponin was normal. Influenza swab was negative. PA and lateral chest x-ray was obtained. There is borderline cardiomegaly but no acute infiltrate. This was interpreted by the radiologist and myself. CT scan of the brain was ordered. Emergency Department Course and Treatment: Patient was given IV fluids here. Patient was given Tylenol. Patient was still unable to ambulate here in the emergency department. Case was discussed with the hospitalist. She will admit the patient for observation. Patient and family understand and are agreeable with the plan. All questions were answered. Disposition: Admit for observation Impression: Inability to ambulate This note was generated with [employer] dictation software. It may contain incorrect words, spelling, and punctuation that were not noted in review of the chart prior to signing ED Disposition - Plan for ED Patient: Disposition: Acute Care Hospital [facility] Diagnosis: Unable to ambulate, Fall Referrals: Carin Mckeon DO [Primary Care Provider] -
[2019-07-29] MEDS: 0.9% Normal Saline 1,000 ML 1000 ML IV (14:01)
[2019-07-29 14:04] LABS: Bacteria 0 SEEN /hpf (None Seen); Mucous, Urine 0 SEEN /hpf (<or=2+); Squamous Epithelial Cells - UA 0 SEEN /hpf (5-10)
[2019-07-29 14:07] LABS: Absolute Lymphocyte Count 0.63 X10^3/uL (0.83-4.51); Absolute Neutrophil Count 5.6 X10^3/uL (2.0-7.7); Basophil# 0.02 X10^3/uL; Basophil% 0.3 % (0-1); Eosinophil# 0.02 X10^3/uL; Eosinophils% 0.3 % (0-5); Hematocrit 41.2 % (37-47); Hemoglobin 13.5 g/dL (12.0-15.0); Lymphocyte # 0.63 X10^3/ul (4.0); Lymphocyte % 9.3 % (19-41); Mean Corp Hgb Conc 32.8 g/dL (32-36); Mean Corpuscular Hgb 30.5 pg (27.0-32.0); Mean Platelet Vol. 9.6 fl (6.2-12.0); Monocyte# 0.43 X10^3/uL; Monocyte% 6.4 % (0-10); NRBC Flagged by Analyzer 0 % (0-5); Neutrophil # 5.61 X10^3/uL (2.7-7.7); Neutrophil % 83.1 % (47-70); Platelet Count 200 K/mm3 (150-450); RBC Distribution Width CV 14.6 % (11.6-14.6); RBC Distribution Width SD 49.4 fl (35.1-43.9); Red Blood Count 4.43 M/mm3 (4.2-5.4); White Blood Count 6.8 K/mm3 (4.4-11.0)
[2019-07-29] MEDS: Acetaminophen 500 MG Tablet 1000 MG PO (14:07)
[2019-07-29 14:13] LABS: Color, Urine Yellow (Yellow); Glucose, Dipstick Normal (Normal); Ketone-Dipstick Negative (Negative); Leukocyte Esterase-Dipstick Negative /ul (Negative); Nitrite-Dipstick Negative (Negative); Occult Blood-Urine Negative /ul (Negative); Protein-Dipstick Negative (Negative); Urine Bilirubin Dipstick Negative (Negative); Urine Clarity Sl. Cloudy (Clear); Urine Urobilinogen Normal (Normal); Urine pH 6.5 (5.0 - 8.0)
[2019-07-29 14:17] LABS: ALB/GLOB Ratio 0.7 RATIO (0.9-2.4); AST(SGOT) 129 U/L (15-37); Alanine Aminotransfer ALT/SGPT 97 U/L (13-56); Alkaline Phosphatase 160 U/L (45-117); Anion Gap 6 (5-15); BUN 7 mg/dL (7-18); BUN/Creat Ratio 8.7 RATIO (10-20); Calcium,Total 8.9 mg/dL (8.5-10.1); Chloride 101 mmol/L (98-107); Creatinine, Serum 0.81 mg/dL (0.55-1.02); EST Glomerular Filtration Rate 72 mL/min (>60); Est Glom Filt Rate - Afr Amer 87 mL/min (>60); Estimated Creatinine Clearance 46.24 ml/min; Globulin 4.1 g/dL (2.2-4.2); Glucose 124 mg/dL (74-106); Potassium 4.2 mmol/L (3.5-5.1); Protein, Total 7.1 g/dL (6.4-8.2); Sodium Level 135 mmol/L (136-145)
[2019-07-29 14:41] LABS: Red Blood Cells-Urine 0-5 SEEN /hpf (0-5); White Blood Cells 0-5 SEEN /hpf (0-5)
--- NOTE | 2019-07-29 15:05 | CT_ITS ---
STUDY: CT BRAIN WITHOUT CONTRAST REASON FOR EXAM: Female, 83 years old. Falx morning. Dizziness and headache. History of diabetes and breast cancer. Recent UTI. RADIATION DOSAGE (If Supplied By Facility): CTDIvol = ( 44.99 ) mGy, DLP = ( 779.24 ) mGycm TECHNIQUE: Transaxial CT imaging of the brain was performed without administration of intravenous contrast material. Individualized dose optimization techniques were used for this CT. COMPARISON: MRI of the brain, September 11, 2018. FINDINGS: Normal soft tissue structures. Normal calvarium. Again seen is a bony density along the inner table and the right frontal region previously described as a meningioma. This appears unchanged. There is mild cerebral atrophy with widening of the extra-axial spaces and ventricular dilatation. There are areas of decreased attenuation within the white matter tracts of the supratentorial brain, consistent with microvascular disease changes. Normal basal ganglia and thalami. Normal brainstem. Normal cerebellum. There is no intracranial hemorrhage. There are no findings of an acute ischemic infarction. Normal visualized paranasal sinuses. CT/Brain/Head without Contrast IMPRESSION: Chronic involutional changes without evidence of acute intracranial or calvarial abnormality. There is no interval change. Electronically Signed: Marcello De Guzman DO at 16:21 EST Tel [phone], Service support ,
--- NOTE | 2019-07-29 17:28 | HP.PCM_ITS ---
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 Qualifiers: (8) Acute bronchitis due to Haemophilus influenzae Status: Resolved (9) GERD (gastroesophageal reflux disease) Status: Chronic Qualifiers: (10) Chronic obstructive pulmonary disease (COPD) Status: Chronic Qualifiers: (11) Hypothyroidism Status: Chronic Qualifiers: (12) Obesity (BMI 30-39.9) Status: Chronic (13) HLD (hyperlipidemia) Status: Chronic Qualifiers: (14) HTN (hypertension) Status: Chronic Qualifiers: (15) Diabetes mellitus, type II Status: Chronic (16) Anxiety and depression Status: Chronic (17) Elevated liver enzymes Status: Chronic (18) Pulmonary hypertension Status: Chronic Comment: Moderate (19) Grade I diastolic dysfunction Status: Chronic (20) Left bundle branch block Status: Chronic History of Present Illness Date of Admission: 07/29/19 Chief Complaint: generalized weakness resulting in a fall, N/V/D The patient is a 83 year old F with a past medical history of hypertension, hyperlipidemia, COPD, GERD, history of breast cancer with bilateral mastectomy, hypothyroidism, morbid obesity, diabetes mellitus type 2, anxiety/depression and chronic mild elevation of LFT's who presented to the emergency department at [facility] on 07/29/2019 after having a fall at home. She stated she got up in the morning and went to the kitchen and had something to drink. She then decided to take a nap and when she went back to the bedroom prior to reaching the bed her legs gave out and she had a fall. She tells me that this is not uncommon when she has an infection. She was recently treated by Dr. Mckeon for a urinary tract infection but she does not recall the antibiotic she was on. The antibiotic finished on 07/24/2019. She tells me that she started having diarrhea on 07/25 and now she also has nausea and vomiting. The vomitus looks like bile. The stool is darker than normal but not black and she has no hematochezia. She denies any hx of PUD. She denies abdominal pain. She denies any hx of C DIFF. She had 3-4 BM's yesterday. She denies dizziness and palpitations. She denies dysuria and also denies cough. She has no sick contacts. Vital signs at presentation to the emergency room were temperature 100.9, pulse rate 79, blood pressure 150/54, respiratory rate 18 and she was 94% saturated on room air. The white blood cell count was 6.8 but there was a left shift with 83% neutrophils. Hemoglobin was 13.5 and platelets were within normal limits. Sodium was low at 135 and the BUN was 7 with a creatinine of 0.81. Random blood sugar is 124. The AST is elevated at 129 with an ALT of 97 and an alk phos of 160 and these have been elevated to these levels in the past. Troponin was less than 0.015. Calcium was within normal limits. The UA had 0- 5 WBCs and no bacteria seen. Chest x-ray showed no infiltrates. The EKG showed normal sinus rhythm with a left bundle branch block. She is being admitted to the hospital for observation for acute febrile illness with diarrhea and generalized weakness resulting in a fall. Past Medical History Past Medical History (Chronic Problems): Chronic Problems (Last Reviewed 07/29/19 @ 17:46 by Kaylene Stiles DO) Pulmonary hypertension (Chronic) Moderate Grade I diastolic dysfunction (Chronic) Left bundle branch block (Chronic) Malignant neoplasm of upper-outer quadrant of right female breast (Chronic) GERD (gastroesophageal reflux disease) (Chronic) Chronic obstructive pulmonary disease (COPD) (Chronic) Hypothyroidism (Chronic) Obesity (BMI 30-39.9) (Chronic) HLD (hyperlipidemia) (Chronic) HTN (hypertension) (Chronic) Diabetes mellitus, type II (Chronic) Anxiety and depression (Chronic) Elevated liver enzymes (Chronic) Medical History: Medical History (Last Reviewed 07/29/19 @ 17:46 by Kaylene Stiles DO) GERD (gastroesophageal reflux disease) (Chronic) K21.9 Chronic obstructive pulmonary disease (COPD) (Chronic) J44.9 Hypothyroidism (Chronic) E03.9 Obesity (BMI 30-39.9) (Chronic) E66.9 HLD (hyperlipidemia) (Chronic) E78.5 HTN (hypertension) (Chronic) I10 Diabetes mellitus, type II (Chronic) E11.9 Anxiety and depression (Chronic) F41.8 Elevated liver enzymes (Chronic) R74.8 Breast cancer, right Onset Date: ~11/2018 C50.911 abnormal ultrasound right breast Acute bronchitis due to Haemophilus influenzae (Resolved) J20.1 Allergies hydrocodone bitartrate [From Vicodin] Adverse Reaction (Verified 07/29/19 13:12) Other HALLUCINATIONS oxycodone HCl [From Percocet] Adverse Reaction (Verified 07/29/19 13:12) Other HALLUCINATIONS tramadol Adverse Reaction (Verified 07/29/19 13:12) Other HALLUCINATIONS Home Medications: Ambulatory Orders Medication Instructions Recorded Aspirin E.C. [Ecotrin] 81 mg PO QHS 07/10/15 Atenolol [Tenormin] 100 mg PO DAILY 07/10/15 Hydrochlorothiazide [Hctz] 25 mg PO DAILY 07/10/15 Levothyroxine [Synthroid] 112 mcg PO SUMOTUWETHFR 07/10/15 Levothyroxine [Synthroid] 224 mcg PO SA 07/10/15 Montelukast [Singulair] 10 mg PO QHS 07/10/15 Gabapentin [Neurontin] 300 mg PO QHS 02/16/17 metFORMIN (XR) [Glucophage Xr] 500 mg PO DAILY 06/02/17 Ascorbic Acid [Vitamin C] 1,000 mg PO QHS 07/08/18 Cranberry Fruit Concentrate [Azo 2 tab PO DAILY 07/08/18 Cranberry] Duloxetine Hcl [Cymbalta] 30 mg PO BID 07/08/18 Esomeprazole Mag Trihydrate 40 mg PO BID 07/08/18 [Nexium] Methenamine Hippurate 1 gm PO QHS 07/08/18 Cyanocobalamin (Vitamin B-12) 2,000 mcg PO DAILY 11/02/18 [Vitamin B-12] Vitamin E 400 units PO DAILY 11/02/18 Amlodipine [Norvasc] 2.5 mg PO DAILY 07/29/19 Cholecalciferol (Vitamin D3) 4,000 unit PO DAILY 07/29/19 [Vitamin D3] Clonidine HCl [Catapres] 0.1 mg PO DAILY 07/29/19 Fexofenadine HCl [Yelena Allergy] 180 mg PO QHS 07/29/19 Isosorbide Dinitrate [Isordil] 10 mg PO TIDCM 07/29/19 Surgical History: Surgical History (Last Reviewed 07/29/19 @ 17:46 by Kaylene Stiles DO) History of laparoscopic cholecystectomy Z90.49 History of left mastectomy Z90.12 History of right mastectomy Onset Date: ~11/2018 Z90.11 Status post left partial knee replacement Z96.652 history laminectomy with decompression history partial right oophorectomy Surgical History: - Psychiatric History: Anxiety, Depression 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 Lives: Spouse/ Significant Other Smoking Status: Former smoker Tobacco Use: Non-smoker Alcohol: None Drugs: None - *Family History Maternal Family History: Family History (Last Reviewed 07/29/19 @ 17:47 by Kaylene Stiles DO) Brother Breast cancer Kidney disease Heart disease Father Heart disease History Items: No pertinent history Paternal Family History: Family History (Last Reviewed 07/29/19 @ 17:47 by Kaylene Stiles DO) Brother Breast cancer Kidney disease Heart disease Father Heart disease History Items: Heart Disease Review of Systems Constitutional: Reports: Anorexia, Fever, Malaise, Weakness, Fatigue Eyes: Denies: Blurred vision HEENT: Denies: Difficulty Swallowing, Ear Pain, Post Nasal Drip, Sore Throat Cardiovascular: Denies: Chest Pain, Edema, Light Headedness, Palpitations Respiratory: Denies: Cough, Shortness of Breath, Shortness of breath at rest, Sputum production Gastrointestinal: Reports: Diarrhea, Nausea, Vomiting. Denies: Abdominal Pain, Dyspepsia, Hematemesis, Hematochezia, Melena Genitourinary: Denies: Dysuria Gynecological: Denies: Vaginal discharge Musculoskeletal: Denies: Joint Pain, Joint Tenderness Skin: Denies: Jaundice, Rash, Wounds Neurological: Denies: Balance problems, Change in Speech, Slurred speech, Confusion, Focal weakness, Numbness, Tingling, Tremor, Seizures Psychiatric: Denies: Anxiety, Depression, Homicidal Ideations, Suicidal Ideations Endocrine: Denies: Change in Body Habitus Hematologic/ Lymphatic: Denies: Easy Bruising, Easy Bleeding, Hx of blood clot VTE Information - Inpt Only VTE Present on Admission: No VTE Mechan Device Prophylaxis: Knee High MORENO Hose VTE Pharm Prophylaxis ordered?: Yes Patient Problems: Active and Suspected Problems (Last Reviewed 07/29/19 @ 17:46 by Kaylene Stiles DO) Unable to ambulate (Acute) Fall (Acute) Gastroenteritis (Acute) Hyponatremia (Acute) Generalized weakness (Acute) - Physical Exam Vitals/I&O's: Vital Signs Temp Pulse Resp BP Pulse Ox 99.2 F H 72 16 125/81 H 96 07/29/19 15:35 07/29/19 16:59 07/29/19 16:59 07/29/19 16:59 07/29/19 16:59 Oxygen Delivery Method Room Air Weight: 199 lb Body Mass Index (BMI) 34.1 Finger Stick Blood Glucose 142 Intake and Output for Last 24 Hours 07/27/19 07/28/19 07/29/19 23:59 23:59 23:59 Intake Total 1000 / 1000 Balance 1000 / 1000 General: Alert, Oriented x3, Cooperative, No apparent distress, - - appears pale and fatigued HEENT: Atraumatic, PERRLA, EOMI, Normocephalic Oral: No Gingival or Mucosal Lesions/ Ulcerations, Dry Mucosa Neck: Supple, No JVD, Negative Carotid Bruits, No Nodes, Trachea Midline Lungs: Clear to auscultation, Normal air movement, Diminished - throughout Cardiovascular: Regular rate, Regular Rhythm, Normal S1, Normal S2, No murmurs, No rub noted, No Gallop, - - heart sounds are somewhat distant....possibly due to body habitus Abdomen: Bowel Sounds Present - No guarding with palpationnot alonso hyperactive, Soft, Non Tender, Non-Distended, - Extremities: No clubbing, No cyanosis, No edema, Capillary Refill Less than 3 Seconds, No Calf Tenderness, Peripheral Pulses Normal Skin: No rashes, No breakdown Musculoskeletal: No Tenderness to Palpation of Joints or Extremities, No Muscle Wasting, Arthritic Changes Neurological: Cranial nerves II-XII grossly intact, Neuro grossly intact Psych/Mental Status: Normal Affect, Appropriate Microbiology Past 72 Hours 07/29/19 13:34 Mucosa - Nasopharyngeal Influenza Types A,B Direct FA (DEMETRIO) - Final Laboratory Results 07/29/19 13:05: Urine Color Yellow, Urine Clarity Sl. Cloudy, Urine pH 6.5, Ur Specific Sharon 1.010, Urine Protein Negative, Urine Glucose (UA) Normal, Urine Ketones Negative, Urine Occult Blood Negative, Urine Nitrite Negative, Urine Bilirubin Negative, Urine Urobilinogen Normal, Ur Leukocyte Esterase Negative, Urine RBC 0-5 SEEN, Urine WBC 0-5 SEEN, Ur Squamous Epith Cells 0 SEEN, Urine Bacteria 0 SEEN, Urine Mucus 0 SEEN 07/29/19 13:50: WBC 6.8, RBC 4.43, Hgb 13.5, Hct 41.2, MCV 93.0, MCH 30.5, MCHC 32.8, RDW Std Deviation 49.4 H, RDW Coeff of Sravan 14.6, Plt Count 200, MPV 9.6, Immature Gran % (Auto) 0.600, Neut % (Auto) 83.1 H, Lymph % (Auto) 9.3 L, Kenedy % (Auto) 6.4, Eos % (Auto) 0.3, Baso % (Auto) 0.3, Absolute Neuts (auto) 5.6, Absolute Lymphs (auto) 0.63 L, Nucleated RBC % 0 07/29/19 13:50: Sodium 135 L, Potassium 4.2, Chloride 101, Carbon Dioxide 28.0, Anion Gap 6, BUN 7, Creatinine 0.81, Estim Creat Clear Calc 46.24, Est GFR (MDRD) Af Amer 87, Est GFR (MDRD) Non-Af 72, BUN/Creatinine Ratio 8.7 L, Glucose 124 H, Calcium 8.9, Total Bilirubin 0.80, AST 129 H, ALT 97 H, Alkaline Phosphatase 160 H, Troponin I < 0.015, Total Protein 7.1, Albumin 3.0 L, Globulin 4.1, Albumin/Globulin Ratio 0.7 L Assessment/Plan All Active Problems (Last Reviewed 07/29/19 @ 17:46 by Kaylene Stiles, ) Unable to ambulate (Acute) Fall (Acute) Gastroenteritis (Acute) Hyponatremia (Acute) Generalized weakness (Acute) Acute bronchitis due to Haemophilus influenzae (Resolved) Nonhealing surgical wound (Resolved) Impressions 1. Acute febrile illness with diarrhea, nausea, vomiting and generalized weakness. Patient recently on antibiotics for a urinary tract infection and the antibiotics finished on 07/24/2019 with diarrhea and suing on 07/25/2019. Stool for lactoferrin was ordered along with an enteric pathogen panel and C. difficile. Patient will be placed in enteric contact precautions. Intravenous fluids have been started and she was started on a clear liquid diet. 2. Hyponatremia-more likely than not secondary to diarrhea/vomiting with mild dehydration 3. Fall without injury due to generalized weakness 4. Chronic medical conditions include hypertension/diabetes mellitus type 2/thyroid disease/COPD/upper lipidemia/GERD/anxiety/depression/morbid obesi ty/left bundle branch block/history of breast cancer with bilateral mastectomies -complicate care, management and prognosis check a mag, HGBA1C and a phos now. Recheck a BMP and CBC with diff in the AM Code Visit OBSV E&M: [id number] Initial observation care L2
[2019-07-29] MEDS: 0.9% Normal Saline 1,000 ML 100 ML IV (18:09)
--- NOTE | 2019-07-29 19:06 | CPS ---
PATIENT REFUSED THERAPY. PATIENT STATED THAT SHE HAD THAT BEFORE AND DIDNT LIKE IT. RT EXPLAINED IMPORTANCE OF TESTING. PATIENT STILL REFUSED.
--- NOTE | 2019-07-29 19:07 | CPS ---
PATIENT REFUSED INCENTIVE.
[2019-07-29 19:27] LABS: Phosphorus 2.4 mg/dL (2.5-4.9)
[2019-07-29 19:31] LABS: Magnesium 0.9 mg/dL (1.6-2.6)
[2019-07-29] MEDS: Ondansetron 4 MG/2 ML Vial IV (20:16)
[2019-07-29] MEDS: 0.9% Saline Lock 10 ML Syringe IV ×2 (20:16→22:09)
[2019-07-29] MEDS: Loratadine 10 MG Tablet PO (20:23)
[2019-07-29] MEDS: MELATONIN 3 MG TABLET PO (20:23)
[2019-07-29] MEDS: Pantoprazole Sodium 40 MG Tablet PO (20:24)
[2019-07-29] MEDS: Gabapentin 300 MG Capsule PO (20:25)
[2019-07-29] MEDS: Methenamine Hippurate 1 GM Tablet PO (20:26)
[2019-07-29] MEDS: Montelukast 10 MG Tablet PO (20:26)
[2019-07-29] MEDS: DULoxetine Hcl 30 MG Capsule PO (20:26)
[2019-07-29] MEDS: Aspirin E.C. 81 MG Tablet PO (20:27)
[2019-07-29] MEDS: Ascorbic Acid 500 MG Tablet 1000 MG PO (20:27)
[2019-07-29 20:45] LABS: Bedside Glucose 116 mg/dL (70-110)
[2019-07-29] MEDS: Acetaminophen 325 MG Tablet 650 MG PO (20:53)
[2019-07-30 05:00] VITALS: BP 134/47; PULSE 80; RESP 18; TEMP 37; O2SAT 93
[2019-07-30] MEDS: 0.9% Normal Saline 1,000 ML 100 ML IV ×2 (06:17→17:08)
[2019-07-30] MEDS: Acetaminophen 325 MG Tablet 650 MG PO ×2 (06:26→12:19)
[2019-07-30] MEDS: Levothyroxine 112 MCG Tablet 224 MCG PO (06:27)
[2019-07-30 06:36] LABS: Bedside Glucose 112 mg/dL (70-110)
[2019-07-30 06:56] VITALS: O2SAT 93
[2019-07-30 08:19] LABS: Anion Gap 6 (5-15); BUN 5 mg/dL (7-18); BUN/Creat Ratio 7.9 RATIO (10-20); Calcium,Total 8.4 mg/dL (8.5-10.1); Chloride 104 mmol/L (98-107); Creatinine, Serum 0.64 mg/dL (0.55-1.02); EST Glomerular Filtration Rate 95 mL/min (>60); Est Glom Filt Rate - Afr Amer 115 mL/min (>60); Estimated Creatinine Clearance 37.45 ml/min; Glucose 121 mg/dL (74-106); Magnesium 1.7 mg/dL (1.6-2.6); Phosphorus 3.6 mg/dL (2.5-4.9); Potassium 3.1 mmol/L (3.5-5.1); Sodium Level 141 mmol/L (136-145)
[2019-07-30 09:36] VITALS: BP 122/38; PULSE 76; RESP 16; TEMP 36.7; O2SAT 93
[2019-07-30] MEDS: Cyanocobalamin 500 MCG Tablet 2000 MCG PO (09:48)
[2019-07-30] MEDS: Atenolol 100 MG Tablet PO (09:48)
[2019-07-30] MEDS: Vitamin E 400 UNITS Capsule PO (09:48)
[2019-07-30] MEDS: DULoxetine Hcl 30 MG Capsule PO ×2 (09:48→21:29)
[2019-07-30] MEDS: Isosorbide DN 10 MG Tablet PO ×3 (09:48→17:07)
[2019-07-30] MEDS: cloNIDine HCl 0.1 MG Tablet PO (09:49)
[2019-07-30] MEDS: amLODIPine 2.5 MG Tablet PO (09:49)
[2019-07-30] MEDS: Pantoprazole Sodium 40 MG Tablet PO ×2 (09:49→21:29)
[2019-07-30] MEDS: Enoxaparin 40 MG/0.4 ML Syringe SC (09:49)
[2019-07-30 12:31] LABS: Bedside Glucose 139 mg/dL (70-110)
--- NOTE | 2019-07-30 13:00 | NURSING ---
In at 1200 per pt request for tylenol. Pt has 2 visitors- 1 young male and 1 female. Female very attentive to every complaint from patient at this time. Pt moaning and shaking in bed- pt reports that she has a fever and needs tylenol now. This RN checked temp= 97.6 at that time. Pt states that she is chilling and continues moaning and moving in bed. States she just returned to bed because she was too cold in the chair and that she had just urinated. Pt states, ohhhh- I need to go to the bathroom again now and in between moans states, i'm so sorry. Then she states are you really going to make me get up to the bathroom? This RN educated pt and family on importance of getting out of bed to prevent losing strength and to prevent further sickness. This Rn and HAI Echeverria assisted pt into bathroom and returned to bed. Family keeps repeating, what is wrong? Why is she shaking, why is she moaning? Pt moaning so loudly at this point, this nurse asked her if she is in pain- to which pt denied but continued moaning and states she feels so terrible that she might not make it- and chuckled. Then, she states, that is exactly what I told my regional geodetic advisor this AM, that maybe I will go see my parents and children in [facility]. Pt then chuckled again and began moaning. Pt demanded more warm blankets and same given. Lunch arrived- pt eating at this time.
[2019-07-30 15:43] VITALS: BP 115/75; PULSE 92; RESP 16; TEMP 36.9; O2SAT 95
--- NOTE | 2019-07-30 16:28 | PCM.PROGNOTE ---
Patient Problems: Active and Suspected Problems (Last Reviewed 07/29/19 @ 17:46 by Kaylene Stiles DO) Unable to ambulate (Acute) Fall (Acute) Gastroenteritis (Acute) Hyponatremia (Acute) Generalized weakness (Acute) Subjective: Patient was seen and examined today, she continues to complain of generalized weakness, she is running a low-grade temperature today. I ordered a respiratory panel on her which was negative for pathogens tested. Patient was made a full admission today due to complaints of continued weakness and the need to keep her in the hospital. - Physical Exam Vitals/I&O's: Vital Signs Temp Pulse Resp BP Pulse Ox 98.1 F 76 16 122/38 H 93 07/30/19 09:36 07/30/19 09:36 07/30/19 09:36 07/30/19 09:36 07/30/19 09:36 Oxygen Delivery Method Room Air Weight: 89.5 kg Body Mass Index (BMI) 33.7 Finger Stick Blood Glucose 142 Intake and Output for Last 24 Hours 07/28/19 07/29/19 07/30/19 23:59 23:59 23:59 Intake Total 1385.67 / 1625.67 1793.33 / 1793.33 Output Total 200 / 1000 1200 / 1200 Balance 1185.67 / 625.67 593.33 / 593.33 General: Alert, Oriented x3, Cooperative, No apparent distress, Well developed, Well nourished HEENT: Atraumatic, PERRLA, EOMI, Normocephalic Oral: Moist Mucosa Neck: Supple, No JVD, Trachea Midline, Thyroid Normal Size and Texture Lungs: Clear to auscultation, Normal air movement, No rhonchi, No wheeze, No rales Cardiovascular: Regular rate, Regular Rhythm, Normal S1, Normal S2, No murmurs, PMI Normal, No rub noted Abdomen: Bowel Sounds Present, Soft, Non Tender, Non-Distended Extremities: No clubbing, No cyanosis, No edema, Capillary Refill Less than 3 Seconds Skin: No rashes, No breakdown Musculoskeletal: No Tenderness to Palpation of Joints or Extremities Neurological: Cranial nerves II-XII grossly intact, Sensory exam intact to light touch and pain, Coordination normal Psych/Mental Status: Normal Affect, Appropriate, Alert and oriented to time, place, person, mood and affect Microbiology Past 72 Hours 07/30/19 11:55 Mucosa - Nasopharyngeal Respiratory Panel (PCR) - Final 07/29/19 13:34 Mucosa - Nasopharyngeal Influenza Types A,B Direct FA (DEMETRIO) - Final Laboratory Results 07/29/19 13:50: Hemoglobin A1c 7.0 H 07/29/19 18:52: Magnesium 0.9 L* 07/29/19 18:52: Phosphorus 2.4 L 07/29/19 20:38: POC Glucose 116 H 07/30/19 06:29: POC Glucose 112 H 07/30/19 06:38: Sodium 141, Potassium 3.1 L, Chloride 104, Carbon Dioxide 31.0, Anion Gap 6, BUN 5 L, Creatinine 0.64, Estim Creat Clear Calc 37.45, Est GFR (MDRD) Af Amer 115, Est GFR (MDRD) Non-Af 95, BUN/Creatinine Ratio 7.9 L, Glucose 121 H, Calcium 8.4 L, Phosphorus 3.6, Magnesium 1.7 07/30/19 12:09: POC Glucose 139 H Current Medications Acetaminophen (Tylenol) 650 mg PO Q6H PRN PRN PRN Reason: Pain Score 1-10/Temp > 100.7 F Last Admin: 07/30/19 12:19 Dose: 650 mg Documented by: Al Hydroxide/Mg Hydroxide (Mylanta Ii) 30 ml PO Q6H PRN PRN PRN Reason: Gastric Burning Amlodipine Besylate (Norvasc) 2.5 mg PO DAILY [facility] Last Admin: 07/30/19 09:49 Dose: 2.5 mg Documented by: Ascorbic Acid (Vitamin C) 1,000 mg PO QHS [facility] Last Admin: 07/29/19 20:27 Dose: 1,000 mg Documented by: Aspirin (Ecotrin) 81 mg PO QHS [facility] Last Admin: 07/29/19 20:27 Dose: 81 mg Documented by: Atenolol (Tenormin (Beta Gudelia)) 100 mg PO DAILY [facility] Last Admin: 07/30/19 09:48 Dose: 100 mg Documented by: Cholecalciferol ([facility]itamin [facility]) [facility] Last Admin: 07/30/19 09:48 Dose: 4,000 unit Documented by: Clonidine (Catapres) 0.1 mg PO DAILY [facility] Last Admin: 07/30/19 09:49 Dose: 0.1 mg Documented by: Cyanocobalamin (Vitamin B12) 2,000 mcg PO DAILYCM [facility] Last Admin: 07/30/19 09:48 Dose: 2,000 mcg Documented by: Duloxetine HCl (Cymbalta) 30 mg PO BID [facility] Last Admin: 07/30/19 09:48 Dose: 30 mg Documented by: Enoxaparin Sodium (Lovenox) 40 mg SC DAILY [facility] Last Admin: 07/30/19 09:49 Dose: 40 mg Documented by: Gabapentin (Neurontin) 300 mg PO QHS [facility] Last Admin: 07/29/19 20:25 Dose: 300 mg Documented by: Glucagon () 1 mg IM .X1 PRN PRN Reason: Hypoglycemia Guaifenesin (Robitussin) 20 ml PO Q4H PRN PRN PRN Reason: COUGH Sodium Chloride () 1,000 mls @ 100 mls/hr IV .Q10H [facility] Last Admin: 07/30/19 06:17 Dose: 100 mls/hr Documented by: Dextrose (Dextrose 10%-Water) 250 mls @ 999 mls/hr IV .Q16M PRN; Protocol PRN Reason: HYPOGLYCEMIA Insulin Human Lispro (Humalog Kwikpen (Bkc)) 0 unit SC [facility]; Protocol Last Admin: 07/30/19 12:19 Dose: Not Given Documented by: Isosorbide Dinitrate (Isordil) 10 mg PO TIDCM [facility] Last Admin: 07/30/19 12:11 Dose: 10 mg Documented by: Levothyroxine Sodium (Synthroid) 112 mcg PO SuMoTuWeThFr@0600 [facility] Levothyroxine Sodium (Synthroid) 224 mcg PO Sa@0600 [facility] Last Admin: 07/30/19 06:27 Dose: 224 mcg Documented by: Loratadine (Claritin) 10 mg PO QHS [facility] Last Admin: 07/29/19 20:23 Dose: 10 mg Documented by: Melatonin (Melatonin) 3 mg PO QHS PRN PRN PRN Reason: INSOMNIA Last Admin: 07/29/19 20:23 Dose: 3 mg Documented by: Methenamine Hippurate (Hiprex) 1 gm PO QHS [facility] Last Admin: 07/29/19 20:26 Dose: 1 gm Documented by: Montelukast Sodium (Singulair) 10 mg PO QHS [facility] Last Admin: 07/29/19 20:26 Dose: 10 mg Documented by: Nitroglycerin (Nitrostat) 0.4 mg SUBLINGUAL Q5M PRN PRN Reason: CARDIAC/CHEST PAIN Ondansetron HCl (Zofran) 4 mg IV Q8H PRN PRN PRN Reason: NAUSEA/VOMITING Last Admin: 07/29/19 20:16 Dose: 4 mg Documented by: Pantoprazole Sodium (Protonix) 40 mg PO BID [facility] Last Admin: 07/30/19 09:49 Dose: 40 mg Documented by: Prochlorperazine Edisylate (Compazine Iv) 5 mg IV Q4H PRN PRN PRN Reason: Breakthrough nausea/vomiting Sodium Chloride () 10 - 40 ml IV UD PRN PRN Reason: SALINE FLUSH Last Admin: 07/29/19 22:09 Dose: 10 ml Documented by: Throat Lozenges (Cepacol Sore Throat Lozenge) 1 lozenge MUCOUS MEM Q2H PRN PRN PRN Reason: SORE THROAT Vitamin E (Vitamin E) [facility] Last Admin: 07/30/19 09:48 Dose: 400 units Documented by: Medical Necessity - Tobacco Use Smoking Status: Former smoker Tobacco Use: Non-smoker Assessment/Plan All Active Problems (Last Reviewed 07/29/19 @ 17:46 by Kaylene Stiles DO) Unable to ambulate (Acute) Fall (Acute) Gastroenteritis (Acute) Hyponatremia (Acute) Generalized weakness (Acute) Acute bronchitis due to Haemophilus influenzae (Resolved) Nonhealing surgical wound (Resolved) #1 generalized debility-etiology unclear at this point, patient was running a low-grade temperature late last night, but this has seemed to subside, continue PT and OT #2 type 2 diabetes-continue to monitor blood sugars #3 essential hypertension #4 febrile illness-etiology unclear #5 pulmonary hypertension #6 hyperlipidemia Code Visit Inpatient E&M: 74249 Init Hosp L3
[2019-07-30 17:15] VITALS: TEMP 36.9
--- NOTE | 2019-07-30 17:24 | CM.UR ---
Met face to face with patient and her daughter. Explained was giving list of SNFs to consider. Patient and daughter expressed that they didn't feel she needed to go to SNF. States she is usually pretty independent. States she baths self and only occasionally needs minimal assistance from . States she dresses herself. Her cooks but she feeds herself. does her own meds. Gets meds from [facility]. States she doesn't usually fall. States she only fell because she had been sick. States that she has gone to OP therapy multiple times and feels like it doesn't do much for her or that she bounces back just as well on her own. States that she did use to go to water aerobics and that helped her the most but the last 6 months she had breast cancer with mastectomy and the drain wound took a long time to heal. States she wasn't allowed to swim while that wound was open. States she probably could go back now. States that she gets back injections with Dr. Melchor at [facility]. States supposed to have a nerve ablation done this week but they'll probably have to push it back d/t her being ill. States she has a walker, can and shower chair. Denies needing any equipment. Does NOT want HHC. Feels they don't really do anything for her. Denies need for PT. Again she and daughter states they'll see how she does in the next 24 hours before fully decide but don't think SNF is necessary. Thad Lamas RN, [facility].
[2019-07-30 17:30] LABS: Bedside Glucose 102 mg/dL (70-110)
--- NOTE | 2019-07-30 17:46 | NURSING ---
Addendum entered by Kiki Gutiérrez 07/30/19 17:49: Pt also states that she feels she needs to go to bathroom. This RN was preparing to get pt up when she states, ooops- I already am going in my brief. Pt assisted by this RN and walker into bathroom, urinated a few drops however, brief was wet. Incontinence care provided. Original Note: Patient complainted of hot and cold flashes- reports she has a fever. Checked pt. temp at this time= 98.4. Pt and niece notified- pt then states well that is what that thing says but that is not what my head says. My head is right and I have a fever. Niece states that she is hot and sweating- reminded that patient has 6 blankets on at this time.
[2019-07-30 21:25] VITALS: BP 129/59; PULSE 82; RESP 16; TEMP 37.1; O2SAT 94
[2019-07-30] MEDS: Methenamine Hippurate 1 GM Tablet PO (21:29)
[2019-07-30] MEDS: Loratadine 10 MG Tablet PO (21:29)
[2019-07-30] MEDS: Aspirin E.C. 81 MG Tablet PO (21:29)
[2019-07-30] MEDS: Gabapentin 300 MG Capsule PO (21:30)
[2019-07-30] MEDS: Montelukast 10 MG Tablet PO (21:30)
[2019-07-30] MEDS: Ascorbic Acid 500 MG Tablet 1000 MG PO (21:30)
[2019-07-30] MEDS: MELATONIN 3 MG TABLET PO (21:37)
[2019-07-30 21:51] LABS: Bedside Glucose 141 mg/dL (70-110)
[2019-07-31] MEDS: 0.9% Normal Saline 1,000 ML 100 ML IV (02:25)
[2019-07-31 02:26] VITALS: BP 140/56; PULSE 87; RESP 18; TEMP 36.7; O2SAT 94
[2019-07-31] MEDS: Levothyroxine 112 MCG Tablet PO (06:20)
[2019-07-31] MEDS: Acetaminophen 325 MG Tablet 650 MG PO (06:23)
[2019-07-31 06:41] LABS: Bedside Glucose 123 mg/dL (70-110)
[2019-07-31 07:01] VITALS: O2SAT 94
[2019-07-31 09:22] VITALS: BP 123/53; PULSE 81; RESP 18; TEMP 36.9; O2SAT 94
[2019-07-31] MEDS: Cyanocobalamin 500 MCG Tablet 2000 MCG PO (09:26)
[2019-07-31] MEDS: Isosorbide DN 10 MG Tablet PO ×2 (09:26→11:18)
[2019-07-31] MEDS: DULoxetine Hcl 30 MG Capsule PO (09:28)
[2019-07-31] MEDS: Vitamin E 400 UNITS Capsule PO (09:28)
[2019-07-31] MEDS: Pantoprazole Sodium 40 MG Tablet PO (09:28)
[2019-07-31] MEDS: amLODIPine 2.5 MG Tablet PO (09:28)
[2019-07-31] MEDS: Atenolol 100 MG Tablet PO (09:29)
[2019-07-31] MEDS: Enoxaparin 40 MG/0.4 ML Syringe SC (09:29)
[2019-07-31] MEDS: cloNIDine HCl 0.1 MG Tablet PO (09:31)
--- NOTE | 2019-07-31 12:47 | DCINST_ITS ---
- Discharge Diagnoses Current Active Problems: Current Active and Chronic Problems (Last Reviewed 07/29/19 @ 17:46 by Kaylene Stiles DO) Unable to ambulate (Acute) Fall (Acute) Gastroenteritis (Acute) Hyponatremia (Acute) Generalized weakness (Acute) Pulmonary hypertension (Chronic) Moderate Grade I diastolic dysfunction (Chronic) Left bundle branch block (Chronic) You will use the following diet at home:: Calorie/Carbohydrate Controlled (specify 1200, 1400, etc) - 1800 yasmin diet Your food should be the consistency of: Regular Your liquids should be the consistency of: Regular/Thin Discharge Activity: Return to Normal Activity Allergies/Adverse Reactions: Allergies hydrocodone bitartrate [From Vicodin] Adverse Reaction (Verified 07/29/19 13:12) Other HALLUCINATIONS oxycodone HCl [From Percocet] Adverse Reaction (Verified 07/29/19 13:12) Other HALLUCINATIONS tramadol Adverse Reaction (Verified 07/29/19 13:12) Other HALLUCINATIONS Medications to take at Discharge Aspirin E.C. [Ecotrin] 81 mg PO QHS 07/10/15 Atenolol [Tenormin] 100 mg PO DAILY 07/10/15 Levothyroxine [Synthroid] 112 mcg PO SUMOTUWETHFR 07/10/15 Levothyroxine [Synthroid] 224 mcg PO SA 07/10/15 Montelukast [Singulair] 10 mg PO QHS 07/10/15 Gabapentin [Neurontin] 300 mg PO QHS 02/16/17 metFORMIN (XR) [Glucophage Xr] 500 mg PO DAILY 06/02/17 Ascorbic Acid [Vitamin C] 1,000 mg PO QHS 07/08/18 Cranberry Fruit Concentrate [Azo Cranberry] 2 tab PO DAILY 07/08/18 Duloxetine Hcl [Cymbalta] 30 mg PO BID 07/08/18 Esomeprazole Mag Trihydrate [Nexium] 40 mg PO BID 07/08/18 Methenamine Hippurate 1 gm PO QHS 07/08/18 Cyanocobalamin (Vitamin B-12) [Vitamin B-12] 2,000 mcg PO DAILY 11/02/18 Vitamin E 400 units PO DAILY 11/02/18 Amlodipine [Norvasc] 2.5 mg PO DAILY 07/29/19 Cholecalciferol (Vitamin D3) [Vitamin D3] 4,000 unit PO DAILY 07/29/19 Clonidine HCl [Catapres] 0.1 mg PO DAILY 07/29/19 Fexofenadine HCl [Yelena Allergy] 180 mg PO QHS 07/29/19 Isosorbide Dinitrate [Isordil] 10 mg PO TIDCM 07/29/19 Primary Care Physician: Carin Mckeon DO [Primary Care Provider] - Please follow up with your Primary Care Physician in: in 2 weeks Test Results: Test results from this visit will be discussed in further detail at your follow- up appointment, if applicable.
[2019-07-31 13:57] VITALS: BP 132/58; PULSE 80; RESP 16; TEMP 36.8; O2SAT 97
--- NOTE | 2019-08-02 10:36 | PCM.DC.SUM ---
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 Her daughter was concerned about possible urinary tract infection. Patient admitted to mild fevers at home but was nonspecific. Work-up in the emergency room showed her temperature to be 100.9, physical exam was unremarkable. EKG showed normal sinus rhythm 70 with a left bundle branch block pattern. CBC and comprehensive medical profile essentially were within normal limits. Urinalysis was unremarkable. Troponin was normal, rapid influenza swab was negative. PA and lateral chest x-ray showed borderline cardiomegaly but no acute infiltrate. Brain CT showed chronic involutional changes with no interval change from last brain CT. Patient was admitted to [place] [id number], her temperature was monitored and she was afebrile for her hospital stay. She was seen by PT and OT, monitor labs showed a low potassium at 3.1. She was given potassium supplement. Is felt to be secondary to her diuretic usage at home. Patient's respiratory panel was unremarkable. On 07/31/2019, patient was seen and examined: On examination she appeared in good health and spirits. Vital signs as documented. Skin warm and dry and without overt rashes. Neck without JVD. Lungs clear. Heart exam notable for regular rhythm, normal sounds and absence of murmurs, rubs or gallops. Abdomen unremarkable and without evidence of organomegaly, masses, or abdominal aortic enlargement. Extremities nonedematous. Neuro: Cranial nerves II through XII are grossly intact, no focal motor deficits were noted, sensation to light touch and pinprick is intact. Psych: Patient is alert and oriented x3, she does not appear anxious or depressed On 07/31/2019, patient was felt to be stable for discharge home. - Physical Exam Vitals/I&O's: Vital Signs Temp Pulse Resp BP Pulse Ox 98.3 F 80 16 132/58 H 97 07/31/19 13:57 07/31/19 13:57 07/31/19 13:57 07/31/19 13:57 07/31/19 13:57 Oxygen Delivery Method Room Air Weight: 92.805 kg Body Mass Index (BMI) 33.7 Finger Stick Blood Glucose 142 Intake and Output for Last 24 Hours 07/31/19 08/01/19 08/02/19 23:59 23:59 23:59 Intake Total 2508.33 / 2508.33 Output Total 450 / 450 Balance 2058.33 / 2058.33 Microbiology Past 72 Hours 07/30/19 11:55 Mucosa - Nasopharyngeal Respiratory Panel (PCR) - Final Discharge Activity: Return to Normal Activity Home Medications: Medications to take at Discharge Aspirin E.C. [Ecotrin] 81 mg PO QHS 07/10/15 Atenolol [Tenormin] 100 mg PO DAILY 07/10/15 Levothyroxine [Synthroid] 112 mcg PO SUMOTUWETHFR 07/10/15 Levothyroxine [Synthroid] 224 mcg PO SA 07/10/15 Montelukast [Singulair] 10 mg PO QHS 07/10/15 Gabapentin [Neurontin] 300 mg PO QHS 02/16/17 metFORMIN (XR) [Glucophage Xr] 500 mg PO DAILY 06/02/17 Ascorbic Acid [Vitamin C] 1,000 mg PO QHS 07/08/18 Cranberry Fruit Concentrate [Azo Cranberry] 2 tab PO DAILY 07/08/18 Duloxetine Hcl [Cymbalta] 30 mg PO BID 07/08/18 Esomeprazole Mag Trihydrate [Nexium] 40 mg PO BID 07/08/18 Methenamine Hippurate 1 gm PO QHS 07/08/18 Cyanocobalamin (Vitamin B-12) [Vitamin B-12] 2,000 mcg PO DAILY 11/02/18 Vitamin E 400 units PO DAILY 11/02/18 Amlodipine [Norvasc] 2.5 mg PO DAILY 07/29/19 Cholecalciferol (Vitamin D3) [Vitamin D3] 4,000 unit PO DAILY 07/29/19 Clonidine HCl [Catapres] 0.1 mg PO DAILY 07/29/19 Fexofenadine HCl [Yelena Allergy] 180 mg PO QHS 07/29/19 Isosorbide Dinitrate [Isordil] 10 mg PO TIDCM 07/29/19 Primary Care Physician: Carin Mckeon DO [Primary Care Provider] - Please follow up with your Primary Care Physician in: in 2 weeks Disposition: Home Minutes spent on discharge:: 32 Patient Condition:: Stable Medical Necessity - Tobacco Use Smoking Status: Former smoker Tobacco Use: Non-smoker Meaningful Use Info Meaningful Use Diagnoses (Choose all that apply): None applicable Code Visit Inpatient E&M: 92034 Disch Hosp
== END 2019-07-31 14:00 | disposition home or self-care (01) | DRG 948 ==
LOC: ED 16:22 → MS3 17:52
PROVIDERS: Admitting Provider Internal Medicine; Emergency Provider Emergency Medicine; PCP Internal Medicine; Visit Provider Internal Medicine
DX: R53.81 Other malaise (principal); E87.1 Hypo-osmolality and hyponatremia; E87.6 Hypokalemia; E11.9 Type 2 diabetes mellitus without complications; I10 Essential (primary) hypertension; I27.20 Pulmonary hypertension, unspecified; E78.5 Hyperlipidemia, unspecified; E86.0 Dehydration; W18.30XA Fall on same level, unspecified, initial encounter; Y92.003 Bedroom of unspecified non-institutional (private) residence as the place of occurrence of the external cause; R50.9 Fever, unspecified; J44.9 Chronic obstructive pulmonary disease, unspecified; E03.9 Hypothyroidism, unspecified; I44.7 Left bundle-branch block, unspecified; Z90.13 Acquired absence of bilateral breasts and nipples; Z85.3 Personal history of malignant neoplasm of breast; Z87.891 Personal history of nicotine dependence; Z79.84 Long term (current) use of oral hypoglycemic drugs; K21.9 Gastro-esophageal reflux disease without esophagitis; F32.9 Major depressive disorder, single episode, unspecified; F41.9 Anxiety disorder, unspecified; R74.8 Abnormal levels of other serum enzymes
CPT/HCPCS: 36415; 70450; 71046; 80048; 80053; 81001; 82962; 83036; 83735; 84100; 84484; 85025; 87633; 87804; 93005; 97162; 97166; 99251; 99285; J7030; J7050; A4216; G0463; J2405

== ENCOUNTER 2019-08-23 12:00 | Outpatient (RCR) | payer MEDICARE, OTHER, SELFPAY ==
[2018-12-14 15:07] VITALS: BMI 33.4
[2019-07-29 17:49] VITALS: BMI 33.7
--- NOTE | 2019-08-17 11:20 | HP.PTEVAL_ITS ---
Patient's Visit Information KARRIE DAVID is a 83 year old F referred to Physical Therapy by Carin Mckeon DO with a diagnosis of vertigo. Date of Evaluation: 08/17/19 Physical Therapist: DEBORAH Pichardo - Visit Plan Frequency: 1-2x /Week Duration: 3 Weeks Plan: 1-2X/ week for a few visits until dizziness is abolished. Pt has no interest on checking her balance or strengthening. She wants to resume her water classes at least one day a week. - Subjective Findings: Sometime when she stand up and she takes a few steps she has to stop and hold on so it settles and so she wont fall. When that happens she feels dizzy, she feels like she will fall and sometimes her L leg will drag. She is dealing with breast cancer and had surgery in November and had to have a wound vac with debridement and radiation. She has some dizziness when she rolls over in bed and so she moves slower cause she is aware of it. The episodes last a minute or less. She has seen [facility] in the past for BPPV and this does not seem to be the same thing. She uses a rollator outside the house and she has an old rollator that is smaller inside the house. She fell 2 weeks ago she went to lay down and she fell into the box next to the bed and she went to squad and was in the hospital for 2 days and they were not sure what was wrong with her. - Objective -L Hallpike for dizziness and or nystagmus. + R Hallpike for upward torsional nystagmus that lasted for approx 33 seconds and was a slower nystagmus. Treated with R EPLY. Repeated R Hallpike and it was negative for dizziness and nystagmus. Advised the pt to not do prolonged looking down until jeison morning - Goals Goal 1:: I HEP Goal Time Frame: 2-4 Weeks Goal 2:: Abolish dizziness Goal Time Frame: 2-4 Weeks Goal 3:: Negative R Hallpike for dizziness and/or nystagmus Goal Time Frame: 2-4 Weeks - Rehabilitation Potential Rehabilitation Potential: Excellent - Anticipated Interventions Thank you for the opportunity to evaluate your patient. For Medicare and Medicare HMO plans, please review the plan of care and approve it. It will need to be FAXED BACK to us at [phone] for Medicare purposes. For Medicare only, by signing this I certify the plan of care. Please let me know if there are questions or concerns regarding this plan of care. Physician Signature: Date:
--- NOTE | 2019-11-17 12:05 | HP.PT.NRP ---
KARRIE DAVID was seen in my office for initial evaluation on 08/17/19. The following Plan of Care was established for this patient: Initial Frequency: 1-2x /Week Initial Duration: 3 Weeks This patient was last seen in our office 08/25/19. Pertinent comments regarding their Physical therapy will appear below: Called patient and she is doing OK. Doctor told her not to go out in this...DC PT At this point I will be discontinuing this patient from physical therapy. I would be happy to see this patient again in the future if found appropriate by the physician. Thank you! Lakeshia Phillip, MPT
== END 2019-08-23 19:00 | disposition home or self-care (01) ==
LOC: PT 12:00
PROVIDERS: PCP Internal Medicine; Referring Provider Internal Medicine; Visit Provider Internal Medicine
DX: R42 Dizziness and giddiness (principal)
CPT/HCPCS: 97110; 97161

== ENCOUNTER → 2019-10-24 11:20 | Outpatient (CLI) | payer MEDICARE, OTHER, SELFPAY ==
[2018-12-14 15:07] VITALS: BMI 33.4
[2019-07-29 17:49] VITALS: BMI 33.7
--- NOTE | 2019-10-24 11:26 | RAD_ITS ---
STUDY: X-RAY - PELVIS AND LEFT HIP REASON FOR EXAM: Female, 83 years old. Left hip and groin pain TECHNIQUE: 3 views of the pelvis and hip. COMPARISON: None. FINDINGS: There is a non-specific bowel gas pattern. Normal visualized soft tissue structures. Normal bilateral iliac wings, sacroiliac joints and visualized sacrum. Normal bilateral superior and inferior pubic rami. Normal pubic symphysis. Normal bilateral ischial tuberosities. Normal visualized femoral head. Normal acetabulum. There is moderate articular joint space narrowing of the hip. This space narrowing and spondylosis in the lower lumbar spine. 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 Electronically Signed: Shai Gonzalez, at 15:34 EDT , Service support ,
== END ==
PROVIDERS: PCP Internal Medicine; Referring Provider Anesthesiology Pain Medicine; Visit Provider Anesthesiology Pain Medicine
DX: M25.552 Pain in left hip (principal); R10.30 Lower abdominal pain, unspecified
CPT/HCPCS: 73502

== ENCOUNTER → 2020-04-24 15:23 | Outpatient (CLI) | payer MEDICARE, OTHER, SELFPAY ==
[2018-12-14 15:07] VITALS: BMI 33.4
[2019-07-29 17:49] VITALS: BMI 33.7
--- NOTE | 2020-04-24 16:00 | MRI_ITS ---
STUDY: MRI BRAIN WITH AND WITHOUT CONTRAST REASON FOR EXAM: Female, 84 years old. Involuntary movements, lightheaded, dizzy, hx prior gamma knife for meningioma, hx breast ca TECHNIQUE: Standardized multiplanar fat and water weighted pulse sequences were obtained. IV Dotarem 18ml was administered for the contrast portion of the examination. COMPARISON: 09/11/2018 FINDINGS: Normal size of the ventricles and extra-axial spaces for the patient''s age. There are multiple white matter hyperintensities, distributed throughout the deep white matter tracts of the cerebral hemispheres, consistent with moderate chronic white matter ischemic changes. Normal bilateral basal ganglia. Normal thalami. There is no extra-axial fluid accumulation. Normal flow voids within the major intracranial circulation suggesting patency by spin echo criteria. Normal venous enhancement. Stable right frontal meningioma measuring 17 x 8 mm. No local mass effect or adjacent frontal cortical edema. Normal sella turcica, pituitary gland, infundibular stalk, optic chiasm and hypothalamus. Normal tectal plate and pineal gland. There are chronic white matter ischemic changes of the shari. The midbrain and medulla are otherwise normal. Normal cerebellum. Normal basal cisterns. Normal bilateral temporal bones. Normal bilateral internal auditory canals. No demonstrated orbital abnormality, within the constraints of a routine brain study. Normal visualized paranasal sinuses. Normal calvarium and skull base. Normal visualized soft tissue structures. Normal visualized upper cervical spine. MRI/Brain W/WO Contrast IMPRESSION: No evidence of acute infarct or hemorrhage. Stable right frontal meningioma. Electronically Signed: Reuben Ureña MD at 22:49 EST Tel , Service support ,
== END ==
PROVIDERS: PCP Internal Medicine; Referring Provider Internal Medicine; Visit Provider Internal Medicine
DX: R25.9 Unspecified abnormal involuntary movements (principal)
CPT/HCPCS: 70553; A9575

== ENCOUNTER → 2020-05-04 08:40 | Outpatient (CLI) | payer MEDICARE, OTHER, SELFPAY ==
[2018-12-14 15:07] VITALS: BMI 33.4
[2019-07-29 17:49] VITALS: BMI 33.7
--- NOTE | 2020-05-04 11:30 | TELEMED_ITS ---
[facility] Tele[facility] has confirmed receipt of a request for visit. This document confirms receipt of the order initiating the consult. To find the results of the consultation, please view the patient's reports for the scanned Telemed Consult.
== END ==
PROVIDERS: PCP Internal Medicine; Referring Provider Internal Medicine; Visit Provider Internal Medicine
DX: R25.9 Unspecified abnormal involuntary movements (principal)
CPT/HCPCS: 95819

== ENCOUNTER 2020-08-13 08:43 | Day surgery (SDC) | payer MEDICARE, OTHER, SELFPAY ==
[2018-12-14 15:07] VITALS: BMI 33.4
[2019-07-29 17:49] VITALS: BMI 33.7
[2020-08-13] VITALS (8 sets, daily range): BP systolic 110–149; BP diastolic 52–84; PULSE 66–85; RESP 16–18; TEMP 35.9–36.1; O2SAT 93–99; BMI 34.1
[2020-08-13] MEDS: Lactated Ringers 1,000 ML 100 ML IV (10:04)
--- NOTE | 2020-08-13 10:30 | RAD_ITS ---
STUDY: X-RAY - LUMBAR SPINE REASON FOR EXAM: Female, 84 years old. THORACOLUMBAR SPINAL CORD STIMULATOR INSERTION, 2 LEADS TECHNIQUE: 3 view(s) of the lumbar spine were obtained. COMPARISON: None FINDINGS: Intraoperative imaging provided for 2-lead stimulator insertion. The tip of the electrodes are at the T7-T8 level. RAD/Lumbar Spine 2 or 3 Views IMPRESSION: Intraoperative imaging provided for 2-lead spinal cord stimulator insertion. Electronically Signed: Shai Gonzalez MD at 12:46 EST , Service support ,
[2020-08-13] MEDS: Cefazolin 2 GM in 0.9% Normal Saline 100 ML IV (10:36)
[2020-08-13 10:41] LABS: Bedside Glucose 169 mg/dL (70-110)
[2020-08-13] MEDS: Lidocaine 2% (20 ml mdv) 20 ML Vial (10:47)
[2020-08-13] MEDS: Bupivacaine 0.25% 30 ML Vial (10:47)
[2020-08-13] MEDS: Bacitracin 500 UNITS/GM PACKET (11:35)
--- NOTE | 2020-08-13 12:30 | OP.PCM_ITS ---
Report of Operation Date of Procedure: 08/13/20 Description of Surgical Findings:: Pre-Operative Diagnosis: Lumbosacral radiculopathy, lumbosacral degenerative disc disease, lumbosacral spinal stenosis Post-Operative Diagnosis: Lumbosacral radiculopathy, lumbosacral degenerative disc disease, lumbosacral spinal stenosis Surgery/Procedure Performed:: 1. Spinal cord stimulator thoracolumbar sure scan MRI leads placement x2 #2 spinal cord stimulator Medtronic intellus generator placement #3 spinal cord stimulator generator pocket creation at the right gluteal region #4 spinal cord stimulator simple programming, 5-intraoperative fluoroscopic interpretation Description of Surgical Findings:: PROCEDURES: 1. Spinal cord stimulator thoracolumbar sure scan MRI leads placement x2 #2 spinal cord stimulator Medtronic intellus generator placement #3 spinal cord stimulator generator pocket creation at the right gluteal region #4 spinal cord stimulator simple programming 5-intraoperative fluoroscopic interpretation PREOPERATIVE DIAGNOSES: Lumbosacral radiculopathy, lumbosacral degenerative disc disease, lumbosacral spinal stenosis POSTOPERATIVE DIAGNOSES: Lumbosacral radiculopathy, lumbosacral degenerative disc disease, lumbosacral spinal stenosis ANESTHESIA: MAC COMPLICATIONS: None BLOOD LOSS: Minimal Implanted device: Spinal cord stimulator lead [id number] lot number [id number], lead #2 [id number] lot number [id number] Medtronic spinal cord stimulator generator intellis adaptive stim serial number [id number] PROCEDURE IN DETAIL: History and physical today was reviewed. Risks and benefits of procedure explained. The patient understood, agreed to procedure, informed consent was obtained. IV inserted per routine protocol. The patient was taken to the operating room, placed in the prone position with a pillow positioned underneath the abdomen. A 2 g of Ancef IV piggyback was infused per anesthesia. The lower back and right gluteal area was prepped and draped in a sterile fashion using iodine x3 Ioban was placed. The C-arm was brought in position for AP view at the L1-2 vertebral bodies under direct visualization fluoroscopy on a true AP view the L1-2 interlaminar space was identified skin a nd subcutaneous tissue and size approximately 10 cc of a mix of 2% lidocaine and 0.25% Marcaine using a 25-gauge regular needle followed by a 25-gauge 3-1/2 inch spinal needle towards the interlaminar space at L2-3, the skin and subcutaneous tissue were then anesthetized and using an 11-gauge blade was then taken down to the skin and subcutaneous tissue using a 14-gauge 3-1/2 inch Touhy needle pro vided by the [employer] kit the needle was passed through the skin towards the interlaminar space at L1-2 and a paramedian approach the needle was then advanced under direct visualization fluoroscopy towards the interlaminar space at L1-2 [id number] technique was then carried to air towards the interlaminar space at L1-2 once the tip of the needle was in the epidural space and loss of resistance was encountered to air and after confirmation of AP as well as oblique view of the spinal cord stimulator lead was then advanced under direct visualization fluoroscopy to be at the tip of the lead at top of T8 and the bottom of the lead around mid T10 after confirmation of AP as well as lateral view to confirm correct placement of the lead in the posterior compartment of the epidural space the previous procedure was then repeated to the right paraspinal area at L1-2 interlaminar space the second lead was then inserted under direct visualization with fluoroscopy to be at the top of T8 and mid T10 area the leads were were then connected to the external neurostimulator and patient was then awakened to confirm satisfactory coverage of the painful area once satisfactory coverage was then achieved the stylette of each needle was then removed and the skin and subcutaneous tissue on to the left of the paramedian needles was then taken anesthetized with a total of 10 cc of the previous mixture of 0.25% Marcaine and 2% lidocaine using a 25-gauge regular needle the incision was then taken down through the skin and subcutaneous tissue towards the fascia making sure hemostasis was then maintained via cautery, the spinal cord stimulator leads were then passed through the above incision and secured using the anchor and sutured down with a 2-0 silk to the fascia at that level the spinal cord stimulator leads were then tunneled via a tunneler provided by the [employer] kit towards the previously incised spinal cord stimulator battery at the right gluteal region skin and subcutaneous tissue were anesthetized with approximately 10 cc of a mix of 2% lidocaine and 0.25% Marcaine using a 25 gauge regular needle, skin and subcutaneous tissue was then taken down with the 11-gauge blade hemostasis was maintained with Bovie and direct pressure the incision was then taken down to the fascia and the battery was then secured with the 2-0 silk sutures that were the spinal cord stimulator leads the upper lead was then marked the new until spinal cord stimulator battery was then provided [employer] kit the battery was then reattached of the spinal cord stimulator make ensure that the top lead is attached to the top position from 0-7 electrodes and the bottom from 8-15 electrodes once impedance was then checked to be in the proper average number the intellis adaptive stim battery was then inserted into the pocket and impedance with when checked again the pocket was then inspected to confirm hemostasis in place, the intellus battery was then secured to the fascia using a 2-0 silk to the upper eyes of the battery confirming an upward writing of the intellis facing posterior, once complete confirmation the battery was then placed in the position and the the mid paramedian and the gluteal incisions were then closed primarily through a 3- 0 Vicryl in a running fashion followed by a 4-0 Vicryl to the skin, hemostasis was then maintained during the procedure the skin was then covered with a Steri- Strips and bacitracin patient was then returned into the supine position in a stable condition and returned to recovery in a stable condition patient experienced no signs or symptoms of intrathecal or intravascular injection patient experienced no paresthesia the procedure was completed without any apparent difficulty any complication the patient appeared to tolerate well, capo r as well as sensory function was unchanged from prior to the procedure. ESTIMATED BLOOD LOSS: Minimal less than 25 mL ASSESSMENT AND PLAN: This is a 84-year-old female with lumbosacral radiculopathy lumbosacral degenerative disc disease lumbosacral spinal stenosis status post 1. Spinal cord stimulator thoracolumbar leads placement x2 #2 spinal cord stimulator Medtronic intellis adaptive stimulator generator placement #3 spinal cord stimulator generator pocket creation at the right gluteal region #4 spinal cord stimulator simple programming, 5-intraoperative fluoroscopic interpretation pat ient will continue her current medications a prescription was provided to the patient Keflex 500 mg 1 p.o. every 8 hours for 7 days, postop instruction were given in writing to the patient and her daughter as well as verbally and in writing, patient will follow approximately 1 week for reevaluation.
== END 2020-08-13 13:33 | disposition home or self-care (01) ==
LOC: SDC 08:46 → AC 08:47
PROVIDERS: PCP Internal Medicine; Referring Provider Anesthesiology Pain Medicine; Visit Provider Anesthesiology Pain Medicine
PROC: (CPT 63685; principal; 2020-08-13 10:05)
DX: Z45.42 Encounter for adjustment and management of neurostimulator (principal); M51.17 Intervertebral disc disorders with radiculopathy, lumbosacral region; M48.07 Spinal stenosis, lumbosacral region; E11.9 Type 2 diabetes mellitus without complications; I10 Essential (primary) hypertension; J44.9 Chronic obstructive pulmonary disease, unspecified; M79.7 Fibromyalgia; E07.9 Disorder of thyroid, unspecified; Z20.828 Contact with and (suspected) exposure to other viral communicable diseases; Z79.899 Other long term (current) drug therapy; Z79.82 Long term (current) use of aspirin; Z87.891 Personal history of nicotine dependence; Z79.891 Long term (current) use of opiate analgesic; E78.00 Pure hypercholesterolemia, unspecified
CPT/HCPCS: 63650; 63685; 95971; 72100; 76000; 82962; 87426; C1778; C1820; C9803; J7120; J2405

== ENCOUNTER → 2020-11-09 07:44 | Outpatient (CLI) | payer MEDICARE, OTHER, SELFPAY ==
[2018-12-14 15:07] VITALS: BMI 33.4
[2020-08-13 09:14] VITALS: BMI 34.1
--- NOTE | 2020-11-09 07:47 | CT_ITS ---
STUDY: CT BRAIN WITHOUT CONTRAST REASON FOR EXAM: Female, 84 years old. HEADACHE RADIATION DOSAGE (If Supplied By Facility): CTDIvol = ( 47.06 ) mGy, DLP = ( 872.68 ) mGycm TECHNIQUE: Transaxial CT imaging of the brain was performed without administration of intravenous contrast material. Individualized dose optimization techniques were used for this CT. COMPARISON: Comparison is made with prior study dated 07/29/2019. FINDINGS: Normal soft tissue structures. Normal calvarium. There is mild cerebral atrophy with widening of the extra-axial spaces and ventricular dilatation. There are areas of decreased attenuation within the white matter tracts of the supratentorial brain, consistent with microvascular disease changes. Normal basal ganglia and thalami. Normal brainstem. Normal cerebellum. There is no intracranial hemorrhage. There are no findings of an acute ischemic infarction. Atherosclerotic plaque formation of the cavernous sinuses bilaterally as well as the vertebral arteries. Normal visualized paranasal sinuses. CT/Brain/Head without Contrast IMPRESSION: Chronic involutional changes of the brain. Electronically Signed: Shai Gonzalez MD at 14:01 EDT , Service support ,
== END ==
PROVIDERS: PCP Internal Medicine; Referring Provider Internal Medicine; Visit Provider Internal Medicine
DX: R51.9 Headache, unspecified (principal)
CPT/HCPCS: 70450

== ENCOUNTER → 2020-12-20 16:06 | Outpatient (CLI) | payer MEDICARE, OTHER, SELFPAY ==
[2018-12-14 15:07] VITALS: BMI 33.4
[2020-08-13 09:14] VITALS: BMI 34.1
--- NOTE | 2020-12-20 16:09 | RAD_ITS ---
STUDY: X-RAY - RIGHT HUMERUS REASON FOR EXAM: Female, 85 years old. PAIN TECHNIQUE: 3 view(s) of the humerus. COMPARISON: None. FINDINGS: There is an old healed surgical neck fracture of the humerus. No acute fracture or suspicious osseous lesion, no foreign body or suspicious soft tissue swelling RAD/Humerus min 2 Views IMPRESSION: Old healed surgical neck fracture of the humerus Electronically Signed: Vaughn Brambila MD at 17:24 EDT , Service support ,
--- NOTE | 2020-12-20 16:09 | RAD_ITS ---
STUDY: X-RAY - RIGHT SHOULDER REASON FOR EXAM: Female, 85 years old. PAIN TECHNIQUE: 4 view(s) of the shoulder. COMPARISON: None. FINDINGS: There is subtle inferior subluxation of the glenohumeral joint with the humeral head being displaced slightly inferiorly relative to the glenoid. There is an old healed fracture of the surgical neck of the humerus. There is degenerative arthrosis of the acromioclavicular joint without inferior osseous spur formation. Normal acromion. The soft tissue structures are unremarkable. Normal visualized pulmonary apex. RAD/Shoulder min 2 Views IMPRESSION: Old healed humeral fracture Slight inferior subluxation of the humeral head relative to the glenoid AC joint arthrosis Electronically Signed: Vaughn Brambila MD at 17:24 EDT , Service support ,
== END ==
PROVIDERS: PCP Internal Medicine; Referring Provider Internal Medicine; Visit Provider Internal Medicine
DX: M79.601 Pain in right arm (principal)
CPT/HCPCS: 73030; 73060

== ENCOUNTER 2021-02-11 23:46 | Emergency (ER) | payer MEDICARE, OTHER, SELFPAY ==
[2018-12-14 15:07] VITALS: BMI 33.4
[2021-02-11 23:47] VITALS: BP 155/57; PULSE 104; RESP 24; TEMP 37.4; O2SAT 94; BMI 34.7
[2021-02-11 23:49] VITALS: BP 155/57; PULSE 104; RESP 24; TEMP 37.4; O2SAT 94
--- NOTE | 2021-02-12 01:10 | EKG12_ITS ---
Test Reason : DYSRHYTHMIA Blood Pressure : / mmHG Vent. Rate : 100 BPM Atrial Rate : 100 BPM P-R Int : 172 ms QRS Dur : 126 ms QT Int : 382 ms P-R-T Axes : 083 -35 119 degrees QTc Int : 492 ms Normal sinus rhythm Left axis deviation Left bundle branch block Abnormal ECG Confirmed by MYLENE PEREZ, RAJ ([id number]), bookbinder chief ROLANDA BELLAMY ([id number]) on 02/13/2021 9:54:33 AM Referred By: Confirmed By:RAJ CHAKRABORTY MD
--- NOTE | 2021-02-12 01:10 | RAD_ITS ---
STUDY: X-RAY CHEST REASON FOR EXAM: Female, 85 years old. fever TECHNIQUE: 1 view COMPARISON: 07/29/2019 FINDINGS: Cardiomediastinal silhouette is unremarkable. Costophrenic angles are sharp. Linear opacities are seen in the left lung base. Lungs are otherwise clear. There is no pneumothorax. Nerve stimulator electrodes are noted in the lower hemithorax. There is multilevel thoracic spondylosis. RAD/Chest 1 View (Portable) IMPRESSION: Left basilar platelike atelectasis versus linear scars. Electronically Signed: Omero Monk MD at 1:33 EDT Tel , Service support ,
--- NOTE | 2021-02-12 01:11 | EX.ED.DYSGE1 ---
HPI History of Present Illness Chief Complaint: Nausea/Vomiting Informant: patient Narrative Narrative: 85-year-old female presents the emergency room with generalized weakness. Patient states that yesterday she began to feel poorly. She states that she gets frequent urinary tract infections and called her doctor. She states she was prescribed ciprofloxacin. She states that she started taking that yesterday. She states that 1 hour after taking each dose she has vomiting. She notes generalized fatigue. She states whenever she gets a urinary tract infection she is unable to walk. 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 She notes a history of COPD and denies any change in cough or shortness of breath. She notes that she was febrile yesterday and today. [facility] Medical History (Updated 02/12/21 @ 06:[address] Blake Waters, ) abnormal ultrasound right breast Acute bronchitis due to Haemophilus influenzae Anxiety and depression Breast cancer, right (~11/2018) Chronic obstructive pulmonary disease (COPD) Diabetes mellitus, type II Elevated liver enzymes GERD (gastroesophageal reflux disease) HLD (hyperlipidemia) HTN (hypertension) Hypothyroidism Obesity (BMI 30-39.9) Home Medications aspirin 81 mg PO QHS 07/10/15 [History Last Taken 07/28/19] atenolol 100 mg PO DAILY 07/10/15 [History Last Taken 08/13/20 08:00] levothyroxine 112 mcg PO SUMOTUWETHFR 07/10/15 [History Last Taken 08/13/20 08:00] levothyroxine 224 mcg PO SA 07/10/15 [History Last Taken 07/23/19] montelukast 10 mg PO QHS 07/10/15 [History Last Taken 07/28/19] gabapentin 300 mg PO QHS 02/16/17 [History Last Taken 07/28/19] metformin 500 mg PO DAILY 06/02/17 [History Last Taken 07/29/19] ascorbic acid (vitamin C) 1,000 mg PO QHS 07/08/18 [History Last Taken 07/28/19] cranberry fruit concentrate 2 tab PO DAILY 07/08/18 [History Last Taken 07/29/19] duloxetine 30 mg PO BID 07/08/18 [History Last Taken 07/29/19] esomeprazole magnesium 40 mg PO BID 07/08/18 [History Last Taken 07/29/19] methenamine hippurate 1 gm PO QHS 07/08/18 [History Last Taken 07/28/19] cyanocobalamin (vitamin B-12) 2,000 mcg PO DAILY 11/02/18 [History Last Taken 07/29/19] vitamin E (dl, acetate) 400 units PO DAILY 11/02/18 [History Last Taken 07/29/19] amlodipine 2.5 mg PO DAILY 07/29/19 [History Last Taken 08/13/20 08:00] cholecalciferol (vitamin D3) 4,000 unit PO DAILY 07/29/19 [History Last Taken 07/29/19] clonidine HCl 0.1 mg PO DAILY 07/29/19 [History Last Taken 08/13/20 08:00] fexofenadine 180 mg PO QHS 07/29/19 [History Last Taken 07/28/19] isosorbide dinitrate 10 mg PO TIDCM 07/29/19 [History Last Taken 08/13/20 08:00] bismuth subsalicylate 262 mg PO PRN PRN 08/08/20 [History Last Taken Unknown] loperamide 2 mg PO TID 08/08/20 [History Last Taken Unknown] mometasone-formoterol 2 puff IH BID 08/08/20 [History Last Taken 08/13/20 08:00] Allergy/AdvReac Type Severity Reaction Status Date / Time hydrocodone bitartrate AdvReac Other Verified 08/13/20 09:13 [From Vicodin] oxycodone HCl [From Percocet] AdvReac Other Verified 08/13/20 09:13 tramadol AdvReac Other Verified 08/13/20 09:13 NARCOTICS Allergy Other Uncoded 02/11/21 23:56 Family History Brother Breast cancer Kidney disease Heart disease Father Heart disease Surgical History history laminectomy with decompression History of laparoscopic cholecystectomy History of left mastectomy History of right mastectomy (~11/2018) history partial right oophorectomy Status post left partial knee replacement Social History Smoking Status: Former smoker alcohol intake: never substance use type: does not use ROS ROS ED Constitutional Constitutional ED: Reports fever(s); Denies chills or weight loss Eyes Eyes: Denies change in vision or diplopia ENT ENT ED: Denies ear pain, rhinorrhea or sore throat Cardiovascular Cardiovascular: Denies chest pain, orthopnea, palpitations or racing heartbeat Respiratory/Chest Respiratory/Chest: Reports cough and other Details: Cough unchanged from baseline ; Denies dyspnea or orthopnea Gastrointestinal Gastrointestinal: Reports nausea and vomiting; Denies abdominal pain or diarrhea Genitourinary Genitourinary ED: Denies dysuria, hematuria or urinary frequency Musculoskeletal Musculoskeletal: Reports myalgias; Denies arthralgias Integumentary Denies abscess or rash Neurologic Neurologic: Denies headache(s) or weakness Psychiatric Psychiatric: Denies anxiety, depression, suicidal ideation or suicidal thoughts Endocrine Endocrinology: Denies polydipsia, polyphagia or polyuria Allergic/Immunologic Allergic/Immunologic ED: Denies mouth swelling, tongue swelling or urticaria EXAM Physical Exam Const Vital Signs: 02/11/21 23:47 02/11/21 23:49 02/12/21 01:16 Temperature 99.4 F H 99.4 F H 99.4 F H Temperature Source Oral Oral Oral Pulse Rate 104 H 104 H 100 Respiratory Rate 24 H 24 H 27 H Blood Pressure 155/57 H 155/57 H 155/57 H Blood Pressure Mean 89 89 89 Pulse Ox 94 94 92 Oxygen Delivery Method Room Air Room Air Room Air 02/12/21 02:52 02/12/21 03:00 02/12/21 04:35 Temperature 99.0 F Temperature Source Oral Pulse Rate 97 97 88 Respiratory Rate 24 H 26 H 18 Blood Pressure 126/62 H 133/61 H Blood Pressure Mean 83 85 Pulse Ox 90 90 94 Oxygen Delivery Method Room Air Room Air Room Air 02/12/21 05:48 Temperature Temperature Source Pulse Rate 83 Respiratory Rate 18 Blood Pressure 108/49 L Blood Pressure Mean 68 Pulse Ox 92 Oxygen Delivery Method Room Air Positive well nourished, well developed and obese General Appearance ED: well developed Nutritional Appearance: obese HEENT Reports normocephalic, head/scalp atraumatic and moist mucous membranes Eyes PERRL and EOMs intact bilaterally Neck no lymphadenopathy, supple and no JVD Resp normal respiratory effort and clear to auscultation bilaterally Cardio regular rate, regular rhythm and no murmurs GI normal to inspection, nondistended, normoactive bowel sounds and non-tender Palpation: soft Back/Spine no CVA tenderness and normal ROM Extremity normal to inspection General Extremety ED: Negative for edema General Extremity: Negative for edema Neuro oriented x3 and CN's II-XII intact bilaterally Sensorium / Orientation: alert Motor Exam: strength 5/5 throughout Psych mental status grossly normal Mood & Affect: Negative for depressed or tearful Skin no rashes or lesions noted and no wounds MDM MDM MDM Narrative Medical decision making narrative: Patient's white cell count was normal. Urinalysis does not show an obvious infection. Her transaminases are elevated and total bilirubin is 1.6. CT of the abdomen pelvis was obtained which shows some ductal dilatation status post cholecystectomy. She is not tender in the abdomen and is not experiencing any abdominal pain at this time. Therefore I do not feel strongly that the patient has acute biliary duct obstruction. Patient received IV fluids and Tylenol for headache. Her initial lactic acid was elevated the repeat however was normal. Patient is on Metformin. Patient was ambulated and she feels good. She states she believes that she is able to be discharged home. I think at this point that is reasonable. Patient to return if worsening or concerns. Lab Data Attestation: I reviewed the patient's lab results. Labs: Laboratory Results - last 24 hr 02/12/21 02/12/21 02/12/21 00:00 00:00 00:00 WBC 6.5 RBC 5.06 Hgb 14.8 Hct 49.0 H MCV 96.8 MCH 29.2 MCHC 30.2 L RDW Std Deviation 54.3 H RDW Coeff of Sravan 15.3 H Plt Count 264 MPV 10.3 Immature Gran % (Auto) 0.500 Neut % (Auto) 74.9 H Lymph % (Auto) 14.5 L [place] % (Auto) 8.7 Eos % (Auto) 1.2 Baso % (Auto) 0.2 Absolute Neuts (auto) 4.9 Absolute Lymphs (auto) 0.95 Nucleated RBC % 0 PT 14.9 INR 1.2 APTT 23.0 L Sodium 134 L Potassium 4.3 Chloride 103 Carbon Dioxide 24.0 Anion Gap 7 BUN 10 Creatinine 0.80 Estim Creat Clear Calc 45.20 Est GFR (MDRD) Af Amer 87 Est GFR (MDRD) Non-Af 72 BUN/Creatinine Ratio 12.4 Glucose 136 H Lactic Acid Calcium 9.7 Total Bilirubin 1.60 H AST 317 H ALT 437 H Alkaline Phosphatase 398 H Total Protein 7.8 Albumin 2.9 L Globulin 4.9 H Albumin/Globulin Ratio 0.6 L Urine Color Urine Clarity Urine pH Ur Specific [place] Urine Protein Urine Glucose (UA) Urine Ketones Urine Occult Blood Urine Nitrite Urine Bilirubin Urine Urobilinogen Ur Leukocyte Esterase Urine RBC Urine WBC Ur Squamous Epith Cells Urine Bacteria Urine Mucus 02/12/21 02/12/21 02/12/21 00:00 04:00 05:46 WBC RBC Hgb Hct MCV MCH MCHC RDW Std Deviation RDW Coeff of Sravan Plt Count MPV Immature Gran % (Auto) Neut % (Auto) Lymph % (Auto) [place] % (Auto) Eos % (Auto) Baso % (Auto) Absolute Neuts (auto) Absolute Lymphs (auto) Nucleated RBC % PT INR APTT Sodium Potassium Chloride Carbon Dioxide Anion Gap BUN Creatinine Estim Creat Clear Calc Est GFR (MDRD) Af Amer Est GFR (MDRD) Non-Af BUN/Creatinine Ratio Glucose Lactic Acid 2.9 H* 0.9 Calcium Total Bilirubin AST ALT Alkaline Phosphatase Total Protein Albumin Globulin Albumin/Globulin Ratio Urine Color Yellow Urine Clarity Clear Urine pH 6.0 Ur Specific [place] 1.010 Urine Protein Negative Urine Glucose (UA) Normal Urine Ketones Negative Urine Occult Blood Negative Urine Nitrite Negative Urine Bilirubin Negative Urine Urobilinogen Normal Ur Leukocyte Esterase 25 H Urine RBC 0 SEEN Urine WBC 0 SEEN Ur Squamous Epith Cells 0 SEEN Urine Bacteria RARE Urine Mucus 0 SEEN Radiography Diagnostic Testing: Radiology Impression Chest X-Ray 02/12/21 01:10 IMPRESSION: Left basilar platelike atelectasis versus linear scars. Electronically Signed: Omero Monk MD at 1:33 EDT Tel , Service support , Abdomen/Pelvis CT 02/12/21 02:31 IMPRESSION: Previous cholecystectomy. Bile duct dilatation may be physiologic postcholecystectomy, however, obstruction cannot be excluded. Suggest laboratory correlation. Colonic diverticulosis and small bowel diverticulosis, without evidence for acute diverticulitis. Atherosclerosis. Small nonobstructive right renal calculus. No demonstrated ureteral calculus or hydronephrosis. Electronically Signed: Stiven Galan MD at 5:31 EDT , Service support , EKG Initial EKG: Attestation: I personally reviewed and interpreted this EKG as follows: Comments: Sinus rhythm with a ventricular rate of 100 bpm with left bundle branch block. Prior EKG tracings: available for review Prior: Unchanged Discharge Plan Triage Chief Complaint: Nausea/Vomiting ED Provider: Blake Waters Dx/Rx/DC Orders Clinical Impression: Vomiting, Elevated liver enzymes Instructions: ED Vomiting (Adult) Prescriptions: No Action atenolol 100 MG tablet 100 mg PO DAILY RF: 0 aspirin 81 MG tablet 81 mg PO QHS RF: 0 montelukast 10 MG tablet 10 mg PO QHS RF: 0 levothyroxine 112 MCG tablet 224 mcg PO SA RF: 0 levothyroxine 112 MCG tablet 112 mcg PO SUMOTUWETHFR RF: 0 gabapentin 300 MG capsule 300 mg PO QHS RF: 0 metformin 500 MG tablet 500 mg PO DAILY RF: 0 ascorbic acid (vitamin C) 1,000 MG tablet 1,000 mg PO QHS RF: 0 methenamine hippurate 1 GM tablet 1 gm PO QHS RF: 0 duloxetine 30 MG capsule 30 mg PO BID RF: 0 cranberry fruit concentrate 250 MG tablet,chewable 2 tab PO DAILY RF: 0 esomeprazole magnesium 40 MG capsule 40 mg PO BID RF: 0 vitamin E (dl, acetate) 400 UNITS capsule 400 units PO DAILY RF: 0 cyanocobalamin (vitamin B-12) 2,000 MCG tablet 2,000 mcg PO DAILY RF: 0 clonidine HCl 0.1 MG tablet 0.1 mg PO DAILY RF: 0 amlodipine 2.5 MG tablet 2.5 mg PO DAILY RF: 0 fexofenadine 180 MG tablet 180 mg PO QHS RF: 0 isosorbide dinitrate 5 MG tablet 10 mg PO TIDCM RF: 0 cholecalciferol (vitamin D3) 2,000 UNIT tablet,chewable 4,000 unit PO DAILY RF: 0 mometasone-formoterol 8.8 GM HFA aerosol inhaler 2 puff IH BID RF: 0 loperamide 2 MG capsule 2 mg PO TID RF: 0 bismuth subsalicylate 262 MG tablet 262 mg PO PRN PRN (Reason: Diarrhea) RF: 0 Primary Care Provider: Carin Mckeon Referrals: Carin Mckeon DO [Primary Care Provider] - 3-5 Days Disposition Disposition: Home, Self Care
[2021-02-12 01:16] VITALS: BP 155/57; PULSE 100; RESP 27; TEMP 37.4; O2SAT 92
[2021-02-12 01:18] LABS: Absolute Lymphocyte Count 0.95 X10^3/uL (0.83-4.51); Absolute Neutrophil Count 4.9 X10^3/uL (2.0-7.7); Basophil# 0.01 X10^3/uL; Basophil% 0.2 % (0-1); Eosinophil# 0.08 X10^3/uL; Eosinophils% 1.2 % (0-5); Hemoglobin 14.8 g/dL (12.0-15.0); Lymphocyte # 0.95 X10^3/ul (0.83-4.51); Lymphocyte % 14.5 % (19-41); Mean Corp Hgb Conc 30.2 g/dL (32-36); Mean Corpuscular Hgb 29.2 pg (27.0-32.0); Mean Corpuscular Volume 96.8 fL (81-99); Mean Platelet Vol. 10.3 fl (6.2-12.0); Monocyte# 0.57 X10^3/uL; Monocyte% 8.7 % (0-10); NRBC Flagged by Analyzer 0 % (0-5); Neutrophil % 74.9 % (47-70); Platelet Count 264 K/mm3 (150-450); RBC Distribution Width CV 15.3 % (11.6-14.6); RBC Distribution Width SD 54.3 fl (35.1-43.9); Red Blood Count 5.06 M/mm3 (4.2-5.4); White Blood Count 6.5 K/mm3 (4.4-11.0)
[2021-02-12 01:34] LABS: ALB/GLOB Ratio 0.6 RATIO (0.9-2.4); AST(SGOT) 317 U/L (15-37); Alanine Aminotransfer ALT/SGPT 437 U/L (13-56); Albumin, Serum 2.9 g/dL (3.2-5.0); Alkaline Phosphatase 398 U/L (45-117); Anion Gap 7 (5-15); BUN 10 mg/dL (7-18); BUN/Creat Ratio 12.4 RATIO (10-20); Calcium,Total 9.7 mg/dL (8.5-10.1); Chloride 103 mmol/L (98-107); EST Glomerular Filtration Rate 72 mL/min (>60); Est Glom Filt Rate - Afr Amer 87 mL/min (>60); Globulin 4.9 g/dL (2.2-4.2); Glucose 136 mg/dL (74-106); Potassium 4.3 mmol/L (3.5-5.1); Protein, Total 7.8 g/dL (6.4-8.2); Sodium Level 134 mmol/L (136-145)
[2021-02-12 01:38] LABS: Lactic Acid 2.9 mmol/L (0.4-1.9)
[2021-02-12 02:27] LABS: International Normalized Ratio 1.2; Prothrombin Time (Protime)PT. 14.9 SECONDS (11.7-14.9)
--- NOTE | 2021-02-12 02:31 | CT_ITS ---
STUDY: CT ABDOMEN AND PELVIS WITH CONTRAST REASON FOR EXAM: Female, 85 years old. abdominal pain. Patient has UTI-started antibiotics 2 days ago. Hx of breast cancer, diabetes, HTN and HLD RADIATION DOSAGE (If Supplied By Facility): CTDIvol = ( 16.90 ) mGy, DLP = ( 1095.95 ) mGycm TECHNIQUE: Transaxial images were obtained from the dome of the diaphragm to the symphysis pubis without oral contrast. IV 100mL Isovue-370 was administered. Sagittal and coronal images were reconstructed. Individualized dose optimization techniques were used for this CT. COMPARISON: None. FINDINGS: There is mild atelectasis in the visualized lung bases. The visualized portions of the heart are within normal limits. Normal liver. Gallbladder surgically absent. There is intrahepatic bile duct dilatation and the common bile duct is dilated at 1.3 cm, which may represent physiologic change postcholecystectomy.. Normal spleen. Normal pancreas. Normal bilateral adrenal glands. There is a 3.5 mm nonobstructive right renal calculus. There is no demonstrated ureteral calculus or hydronephrosis. Normal left kidney. Assessment of the stomach is limited by nondistention. There is a 2.4 cm diverticulum of the duodenal sweep, without demonstrated duodenal diverticulitis.. There are multiple small diverticula of the distal ileum, without evidence for ileal diverticulitis. Otherwise normal small bowel. There are multiple colonic diverticula consistent with diverticulosis. There is non-visualization of the appendix.w there is no evidence for appendicitis. There is atherosclerotic calcification of the abdominal aorta, without a demonstrated aneurysm. Normal inferior vena cava. Normal retroperitoneum. Normal urinary bladder. Normal abdominal wall. There are postsurgical changes in the lumbar spine. There is an implanted electronic box in the subcutaneous fat of the right buttocks region with associated wires in the lumbar spinal canal and electrodes in the lower thoracic spinal canal. CT/Abdomen/Pelvis W IV Cont ONLY IMPRESSION: Previous cholecystectomy. Bile duct dilatation may be physiologic postcholecystectomy, however, obstruction cannot be excluded. Suggest laboratory correlation. Colonic diverticulosis and small bowel diverticulosis, without evidence for acute diverticulitis. Atherosclerosis. Small nonobstructive right renal calculus. No demonstrated ureteral calculus or hydronephrosis. Electronically Signed: Stiven Galan MD at 5:31 EDT , Service support ,
[2021-02-12 02:52] VITALS: BP 126/62; PULSE 97; RESP 24; O2SAT 90
[2021-02-12] MEDS: 0.9% Normal Saline 1,000 ML 999 ML IV (02:59)
[2021-02-12 03:00] VITALS: BP 133/61; PULSE 97; RESP 26; TEMP 37.2; O2SAT 90
[2021-02-12 04:06] LABS: Mucous, Urine 0 SEEN /hpf (<or=2+); Red Blood Cells-Urine 0 SEEN /hpf (0-5); Squamous Epithelial Cells - UA 0 SEEN /hpf (5-10); White Blood Cells 0 SEEN /hpf (0-5)
[2021-02-12 04:11] LABS: Color, Urine Yellow (Yellow); Glucose, Dipstick Normal (Normal); Ketone-Dipstick Negative (Negative); Leukocyte Esterase-Dipstick 25 /ul (Negative); Nitrite-Dipstick Negative (Negative); Occult Blood-Urine Negative /ul (Negative); Protein-Dipstick Negative (Negative); Urine Bilirubin Dipstick Negative (Negative); Urine Clarity Clear (Clear); Urine Urobilinogen Normal (Normal)
[2021-02-12 04:19] LABS: Bacteria RARE /hpf (None Seen)
[2021-02-12] MEDS: Acetaminophen 500 MG Tablet 1000 MG PO (04:33)
[2021-02-12 04:35] VITALS: PULSE 88; RESP 18; O2SAT 94
[2021-02-12 05:16] LABS: Reflex Lactate? Y
[2021-02-12 05:48] VITALS: BP 108/49; PULSE 83; RESP 18; O2SAT 92
[2021-02-12 06:31] LABS: Lactic Acid 0.9 mmol/L (0.4-1.9)
[2021-02-12 06:53] VITALS: BP 138/74; PULSE 79; RESP 16; O2SAT 98
== END 2021-02-12 07:13 | disposition home or self-care (01) ==
PROVIDERS: Emergency Provider Emergency Medicine; PCP Internal Medicine
DX: R11.2 Nausea with vomiting, unspecified (principal); R74.8 Abnormal levels of other serum enzymes; E66.9 Obesity, unspecified; Z87.891 Personal history of nicotine dependence; Z86.16 Personal history of COVID-19
CPT/HCPCS: 36415; 71045; 74177; 80053; 81001; 83605; 85025; 85610; 85730; 87040; 87086; 87088; 93005; 96360; 96361; 99285; J7030; Q9967; A4216

== ENCOUNTER 2021-03-08 09:30 | Outpatient (RCR) | payer MEDICARE, OTHER, SELFPAY ==
[2018-12-14 15:07] VITALS: BMI 33.4
--- NOTE | 2021-02-25 08:51 | HP.PTEVAL ---
Patient's Visit Information KARRIE DAVID is a 85 year old F referred to Physical Therapy by Dr. Carin Mckeon DO with a diagnosis of BLE weakness. Date of Evaluation: 02/22/21 Physical Therapist: Nabeel Del Rio DPT - Visit Plan Frequency: 3x /Week Duration: 6 Weeks Plan: Start with BLE strengthening, gait progression with FWW. balance training. - Subjective Pt. is here today for her initial evaluation with diagnosis of BLE weakness. Pt. reports having multiple falls per month due to her legs giving out on her. She reports having BLE tingling then her legs give out on her. Pt. reports minimal pain, some in her L knee. Pt. has a history of LBP with surgical intervention. Most recently she had a UTI which she believes added to her weakness. Pt. reports walking with a walker and rollator at home, more FWW currently. Pt. reports only walking in home and not getting out much currently. Pt. is sleeping okay, but is not being very physically active. She had previously been active at gym, but has not been so since [facility]. Pt. is hopeful to get back to all household activities without limitations. - Pain L knee Pain Intensity (Out of 10): 2 Pain Intensity Range: 0, 6 - Objective POSTURE: Pt. has generalized flexed posture, heavy use of AD in stance. Wide EUGENIA noted. PALPATION: No pain with palpation of BLEs. No edema noted. NEURO: Pt. has normal sensation and normal DTR of BLEs. ROM: Pt. has general tightness in BLEs, slightly limited B knee ROM. Decreased lumbar extension, Tight B hip flexors. MMT: Pt. has 4/5 general strength in distal LEs. LLE hip: flexion 4-/5, abd 4-/5. Core strength poor. GAIT: pt. ambulates with FWW with CGA. Pt. was able to ambulate 48' prior to needing to sit. Pt. needs VCing to stay with in EUGENIA of AD. Pt. reports fatigue and increased BLE tingling in stance. - Balance/Special Test Scores Lower Extremity Functional Score: 2 TUG Test Time Seconds: 29.4 30 Second Chair Rise Test Seconds: 7 - Goals Goal 1:: LTG: Pt. to be I with HEP. Goal Time Frame: 4-6 Weeks Goal 2:: LTG: Pt. to have increased BLE strength to at least 4+/5 throughout. Goal Time Frame: 4-6 Weeks Goal 3:: LTG: Pt. to ambulate with FWW at least 300'+ with FWW without LOB with decreased assistance. Goal Time Frame: 4-6 Weeks Goal 4:: LTG: Pt. to completed TUG under 20sec with FWW. Goal Time Frame: 4-6 Weeks - Rehabilitation Potential Physical Therapy Diagnosis: Pt. has signs and symptoms consistent with BLE weakness, difficulty with gait and imbalance with frequent falls. Pt. has marked BLE weakness and increased tingling in her BLEs with standing/walking which precedes loss of balance. Pt. would benefit from PT to address the above limitations progressing general LE strength and stability with gait. Rehabilitation Potential: Good - Anticipated Interventions Patient/Client Instruction: Educate patient on: Condition, Plan of Care, Risk Factors, Benefits of Fitness Program For the Purpose of:: To foster healthy habits, To improve decision making, To facilitate caregiver knowledge, To improve self management, To prevent re-injury, To improve ability to perform tasks related to life management Therapeutic Exercise to Include: Strength training, Power training, Balance training, Coordination, Body mechanics, Postural training, Gait and locomotor training, Dynamic Lumbar Stabilization For the Purpose of:: To decrease pain, To decrease swelling/inflammation, To increase ROM, To improve nutrient delivery to tissue, To improve gait and locomotor functions, To improve health of tissue, To decrease soft tissue restriction, To increase flexibility/ROM, To improve endurance Thank you for the opportunity to evaluate your patient. For Medicare and Medicare HMO plans, please review the plan of care and approve it. It will need to be FAXED BACK to us at [phone] for Medicare purposes. For Medicare only, by signing this I certify the plan of care. Please let me know if there are questions or concerns regarding this plan of care. Physician Signature: Date:
--- NOTE | 2021-05-14 11:42 | HP.PTDCNRP_ITS ---
KARRIE DAVID was seen in my office for initial evaluation on 02/22/21. The following Plan of Care was established for this patient: Initial Frequency: 3x /Week Initial Duration: 6 Weeks Patient/Client Instruction: Educate patient on: Condition, Plan of Care, Risk Factors, Benefits of Fitness Program For the Purpose of:: To foster healthy habits, To improve decision making, To facilitate caregiver knowledge, To improve self management, To prevent re- injury, To improve ability to perform tasks related to life management Therapeutic Exercise to Include: Strength training, Power training, Balance training, Coordination, Body mechanics, Postural training, Gait and locomotor training, Dynamic Lumbar Stabilization For the Purpose of:: To decrease pain, To decrease swelling/inflammation, To increase ROM, To improve nutrient delivery to tissue, To improve gait and locomotor functions, To improve health of tissue, To decrease soft tissue restriction, To increase flexibility/ROM, To improve endurance This patient was last seen in our office 03/08/21. Pertinent comments regarding their Physical therapy will appear below: Pt. was seen in PT for BLE weakness and falls. Pt. was doing well in PT, but then went on vacation. She has not been seen in ~2 months and will be DC from PT at this point in time. At this point I will be discontinuing this patient from physical therapy. I would be happy to see this patient again in the future if found appropriate by the physician. Thank you! Nabeel Del Rio, DPT Balance/Gait/Functional tests - Balance/Special Test Scores Lower Extremity Functional Score: 20 TUG Test Time Seconds: 29.4 Tug Test: 20-30sec.=variable mobility 30 Second Chair Rise Test Seconds: 7
== END 2021-03-08 19:00 | disposition home or self-care (01) ==
LOC: PT 09:30
PROVIDERS: PCP Internal Medicine; Referring Provider Internal Medicine; Visit Provider Internal Medicine
DX: M62.81 Muscle weakness (generalized) (principal)
CPT/HCPCS: 97110; 97161

== ENCOUNTER → 2021-06-05 09:51 | Outpatient (CLI) | payer MEDICARE, OTHER, SELFPAY ==
[2018-12-14 15:07] VITALS: BMI 33.4
[2021-06-05 12:39] LABS: BUN 11 mg/dL (7-18); Creatinine, Serum 0.86 mg/dL (0.55-1.02); EST Glomerular Filtration Rate 67 mL/min (>60); Est Glom Filt Rate - Afr Amer 80 mL/min (>60)
== END ==
PROVIDERS: PCP Internal Medicine; Referring Provider Nurse Practitioner Family; Visit Provider Nurse Practitioner Family
DX: Z01.818 Encounter for other preprocedural examination (principal)
CPT/HCPCS: 36415; 82565; 84520

== ENCOUNTER → 2021-06-12 15:57 | Outpatient (CLI) | payer MEDICARE, OTHER, SELFPAY ==
[2018-12-14 15:07] VITALS: BMI 33.4
--- NOTE | 2021-06-12 16:45 | MRI_ITS ---
STUDY: MRI LUMBAR SPINE WITH AND WITHOUT CONTRAST REASON FOR EXAM: Female, 85 years old. ARTHROPATHY- Pt has neurostimulator in back TECHNIQUE: Standardized fat and water weighted pulse sequences were obtained in the sagittal and axial planes. IV 18mL Dotarem was administered for the contrast portion of the examination. COMPARISON: 11/21/2016 FINDINGS: Straightening of the normal alignment of the columns of the lumbar spine is visualized. No evidence of spondylolisthesis is seen. The lumbar vertebral bodies demonstrate no evidence of compression deformity, multilevel degenerative endplate changes visualized most prominent involving the anterior aspect of the inferior endplate of the L4 vertebral body and the superior endplate of the L5 vertebral body. A Schmorl''s node is visualized in the anterior aspect of the inferior endplate of the L4 vertebral body with surrounding degenerative changes. No evidence of T2 prolongation is visualized visualized on the STIR sequence to suggest acute fracture, edema or infiltrative process. The cord terminates at the level of the L1 vertebral body, the terminal nerve roots demonstrate no evidence of thickening or clumping to suggest arachnoiditis. Disc desiccation visualized throughout the lumbar vertebral bodies with decreased intervertebral disc height seen most prominent at L5-S1 and L4-L5. Wires are visualized entering the spinal canal at the level of the L1 to intervertebral disc space and ascending in the posterior epidural soft tissues, Blooming artifact suggestive of generator visualized in the posterior right lower back subcutaneous soft tissues. Normal visualized sacral ala. Normal visualized paraspinous soft tissue structures. Limited evaluation of the abdominal soft tissues is unremarkable. L1-2: Degenerative changes visualized in the intervertebral disc and hypertrophic changes visualized in the facet joints and ligamentum flavum. No significant narrowing of the spinal canal and no significant narrowing of bilateral neural foramina seen at this level. L2-3: Degenerative disc changes with hypertrophic changes in the facet joints and ligamentum flavum visualized, no significant narrowing of the spinal canal and mild narrowing of the right neural foramina is seen, no significant narrowing of the left neuroforamina is visualized at this level. T2 prolongation visualized within the right facet joints at this level. Mild prominence of the posterior epidural fat is visualized at this level. L3-4: Circumferential disc bulges hypertrophic changes in the facet joints and ligamentum flavum visualized. Prominent posterior epidural fat visualized at this level. Moderate to severe narrowing of the spinal canal is seen, moderate narrowing of the right neural foramina and mild narrowing of the left neuroforamina is visualized at this level. L4-5: Postoperative changes with laminectomy seen at this level. Circumferential disc bulge with hypertrophic changes seen in the facet joints, no narrowing of the spinal canal is visualized. Severe narrowing of the right neural foramina and moderate to severe narrowing of the left neuroforamina is seen at this level. L5-S1: Postoperative changes with laminectomy seen at this level. Circumferential disc bulge with hypertrophic changes in the facet joints is seen, no significant narrowing of the spinal canal and severe narrowing of bilateral neural foramina is visualized at this level. TARLOV cyst visualized at the level of the right S1 to neural foramen. MRI/Spine Lumbar W/WO Contrast IMPRESSION: Postoperative changes. Multilevel degenerative changes of the lumbar spine seen. Prominence of the posterior epidural fat visualized most prominent at the level of the L3-4 intervertebral disc where there is severe narrowing of the spinal canal. Narrowing of the neural foramina visualized most prominent at L5 5 S1 and L4-L5. Electronically Signed: Silvestre Connelly MD at 12:36 EST Tel , Service support ,
== END ==
PROVIDERS: PCP Internal Medicine; Visit Provider Nurse Practitioner Family
DX: M46.96 Unspecified inflammatory spondylopathy, lumbar region (principal); M51.37 Other intervertebral disc degeneration, lumbosacral region; M54.17 Radiculopathy, lumbosacral region; M47.817 Spondylosis without myelopathy or radiculopathy, lumbosacral region
CPT/HCPCS: 72158; A9575

== ENCOUNTER 2021-10-03 07:59 | Inpatient (IN) | payer MEDICARE, OTHER, SELFPAY ==
[2018-12-14 15:07] VITALS: BMI 33.4
[2021-10-03] VITALS (12 sets, daily range): BP systolic 101–156; BP diastolic 54–103; PULSE 62–114; RESP 16–116; TEMP 36.5–37; O2SAT 93–94; BMI 35.7; BMI 35.9
--- NOTE | 2021-10-03 08:08 | ED.RN ---
PURE WICK PLACED D/T INCONTINENCE
--- NOTE | 2021-10-03 08:12 | EKG12_ITS ---
Test Reason : VOMITING Blood Pressure : / mmHG Vent. Rate : 102 BPM Atrial Rate : 000 BPM P-R Int : 000 ms QRS Dur : 122 ms QT Int : 382 ms P-R-T Axes : 000 -29 130 degrees QTc Int : 497 ms Sinus rhythm Left bundle branch block Abnormal ECG Confirmed by MYLENE PEREZ, RAJ ([id number]), magazine editor ROLANDA BELLAMY ([id number]) on 10/08/2021 8:46:18 AM Referred By: MARILUZ Confirmed By:RAJ CHAKRABORTY MD
--- NOTE | 2021-10-03 08:13 | EX.ED.DYSGE1 ---
HPI History of Present Illness Chief Complaint: Nausea/Vomiting Detail of Chief Complaint: Not feeling well for 2 days Informant: patient Narrative Narrative: Patient presents to the emergency department stating that she has not been feeling well for the last couple days. Patient started with severe nausea and vomiting around 4 AM. She had subjective fever at home. Patient states she threw up about 3 or 4 times. She denies diarrhea. She has had some intermittent incontinence. Patient has history of chronic UTIs. Patient has felt this way in the past when she had a UTI. Patient denies sick contacts. Patient is diabetic and has history of COPD. She denies abdominal pain. She denies chest pain. She does complain of some pain in both arms that she is had for 3 to 4 days. Prior similar symptoms: Yes PFSH [facility] Medical History (Updated 10/03/21 @ 09:[address] Delta Campbell, DO) abnormal ultrasound right breast Acute bronchitis due to Haemophilus influenzae Anxiety and depression Breast cancer, right (~11/2018) Chronic obstructive pulmonary disease (COPD) Diabetes mellitus, type II Elevated liver enzymes GERD (gastroesophageal reflux disease) HLD (hyperlipidemia) HTN (hypertension) Hypothyroidism Obesity (BMI 30-39.9) Home Medications aspirin 81 mg PO QHS 07/10/15 [History Last Taken 07/28/19] atenolol 100 mg PO DAILY 07/10/15 [History Last Taken 08/13/20 08:00] levothyroxine 112 mcg PO SUMOTUWETHFR 07/10/15 [History Last Taken 08/13/20 08:00] levothyroxine 224 mcg PO SA 07/10/15 [History Last Taken 07/23/19] montelukast 10 mg PO QHS 07/10/15 [History Last Taken 07/28/19] gabapentin 300 mg PO QHS 02/16/17 [History Last Taken 07/28/19] metformin 500 mg PO DAILY 06/02/17 [History Last Taken 07/29/19] ascorbic acid (vitamin C) 1,000 mg PO QHS 07/08/18 [History Last Taken 07/28/19] cranberry fruit concentrate 2 tab PO DAILY 07/08/18 [History Last Taken 07/29/19] duloxetine 30 mg PO BID 07/08/18 [History Last Taken 07/29/19] esomeprazole magnesium 40 mg PO BID 07/08/18 [History Last Taken 07/29/19] methenamine hippurate 1 gm PO QHS 07/08/18 [History Last Taken 07/28/19] cyanocobalamin (vitamin B-12) 2,000 mcg PO DAILY 11/02/18 [History Last Taken 07/29/19] vitamin E (dl, acetate) 400 units PO DAILY 11/02/18 [History Last Taken 07/29/19] amlodipine 2.5 mg PO DAILY 07/29/19 [History Last Taken 08/13/20 08:00] cholecalciferol (vitamin D3) 4,000 unit PO DAILY 07/29/19 [History Last Taken 07/29/19] clonidine HCl 0.1 mg PO DAILY 07/29/19 [History Last Taken 08/13/20 08:00] fexofenadine 180 mg PO QHS 07/29/19 [History Last Taken 07/28/19] isosorbide dinitrate 10 mg PO TIDCM 07/29/19 [History Last Taken 08/13/20 08:00] bismuth subsalicylate 262 mg PO PRN PRN 08/08/20 [History Last Taken Unknown] loperamide 2 mg PO TID 08/08/20 [History Last Taken Unknown] mometasone-formoterol 2 puff IH BID 08/08/20 [History Last Taken 08/13/20 08:00] Allergy/AdvReac Type Severity Reaction Status Date / Time hydrocodone bitartrate AdvReac Other Verified 10/03/21 08:05 [From Vicodin] oxycodone HCl [From Percocet] AdvReac Other Verified 10/03/21 08:05 tramadol AdvReac Other Verified 10/03/21 08:05 NARCOTICS Allergy Other Uncoded 10/03/21 08:05 Family History Brother Breast cancer Kidney disease Heart disease Father Heart disease Surgical History history laminectomy with decompression History of laparoscopic cholecystectomy History of left mastectomy History of right mastectomy (~11/2018) history partial right oophorectomy Status post left partial knee replacement Social History Smoking Status: Former smoker alcohol intake: never substance use type: does not use ROS ROS ED Constitutional Constitutional ED: Reports systems reviewed and no addt'l complaints, except as documented; Denies body ache(s), change in weight or chills Eyes Eyes: Denies acute decrease in peripheral vision, change in vision, double vision or loss of vision ENT ENT ED: Reports none; Denies ear pain, lip swelling, loss taste/smell, neck pain, otalgia or sore throat Cardiovascular Cardiovascular: Reports none; Denies abdominal pain, chest pain with activity, leg edema, lightheadedness, palpitations, rapid heart rate or syncope Respiratory/Chest Respiratory/Chest: Reports none; Denies change in mental status, dry cough, dyspnea, hemoptysis, shortness of breath at rest or shortness of breath with exertion Gastrointestinal Gastrointestinal: Reports none, nausea and vomiting; Denies abdominal pain, change in stool character, diarrhea, hematemesis, hematochezia, melena or rectal bleeding Genitourinary Genitourinary ED: Reports none; Denies abdominal discomfort, anuria, dysuria, genital pain or polyuria Musculoskeletal Musculoskeletal: Reports none; Denies arthralgias, back pain, difficulty walking, extremity pain, muscle weakness or myalgias Integumentary Reports none; Denies abscess or rash Neurologic Neurologic: Reports none and weakness; Denies abnormal gait, confusion, focal weakness, frequent falls, headache(s), loss of vision, numbness, paresthesias, radicular pain or vertigo Psychiatric Psychiatric: Reports systems reviewed and no addt'l complaints, except as documented and none; Denies behavioral changes, confusion, difficulty concentrating, hallucinations, suicidal ideation, tactile hallucinations or visual hallucinations Endocrine Endocrinology: Denies none, cold intolerance, excessive sweating, fatigue or heat intolerance Hematologic/Lymphatic Hematologic/Lymphatic: Reports none; Denies anemia, easy bleeding or easy bruising Allergic/Immunologic Allergic/Immunologic ED: Denies as per HPI, none, lip swelling, mouth swelling, throat swelling, tongue swelling or hives EXAM Physical Exam Const Vital Signs: 10/03/21 07:59 10/03/21 08:07 Temperature 98.3 F 98.3 F Temperature Source Temporal Temporal Pulse Rate 114 H 114 H Respiratory Rate 116 H 16 Blood Pressure 145/103 H 145/103 H Blood Pressure Mean 117 117 Pulse Ox 93 93 Oxygen Delivery Method Room Air Room Air Positive well nourished and well developed General Appearance ED: well developed and NAD HEENT Reports TM's clear and moist mucous membranes normocephalic and atraumatic; Negative for trauma or tenderness Tympanic Membrane ED: Yes TM's clear Eyes PERRL and EOMs intact bilaterally General Eye ED: Negative for pale conjunctiva or scleral icterus Neck no lymphadenopathy, supple and no JVD General: Negative for tenderness Chest Wall inspection of chest normal and palpation of chest normal Chest: Negative for tenderness Resp normal respiratory effort and clear to auscultation bilaterally Effort and Inspection: Negative for respiratory distress or pain with movement Auscultation: Negative for rhonchi, wheezes or diminished lung sounds Cardio regular rate, regular rhythm, S1 normal heart sound, S2 normal heart sound and no murmurs Peripheral Pulses: pulses 2+ throughout GI normal to inspection, nondistended, normoactive bowel sounds, soft to palpation, non-tender, non-distended and no masses Back/Spine no CVA tenderness and no thoracic nor lumbar tenderness Extremity normal to inspection General Extremety ED: Negative for edema General Extremity: Negative for edema Neuro oriented x3, CN's II-XII intact bilaterally, no sensory deficits noted and gait normal Sensorium / Orientation: awake, alert, oriented to person, oriented to place and oriented to time Motor Exam: strength 5/5 throughout and strength abnormal Psych mental status grossly normal Skin no rashes or lesions noted and no wounds MDM MDM MDM Narrative Medical decision making narrative: IV line established on arrival. Patient was given normal saline. Patient had received Zofran via EMS. She has noted to have a lactic acidosis. Urinalysis was positive for nitrites but only 25 leukocyte Estrace and 0-5 WBCs with +2 bacteria. I did send off a culture. This point Case will be discussed with hospitalist evaluate for admission for diagnosis of generalized weakness as well as nausea and vomiting. Etiology of nausea and vomiting could be viral versus possibly related to urinary tract infection. We will hold off on antibiotics at this time and will have discussion with hospitalist. After discussing case with hospitalist he did want start Rocephin IV which I will order. Lab Data Attestation: I reviewed the patient's lab results. Labs: Laboratory Results - last 24 hr 10/03/21 10/03/21 10/03/21 08:05 08:22 08:22 WBC RBC Hgb Hct MCV MCH MCHC RDW Std Deviation RDW Coeff of Sravan Plt Count MPV Immature Gran % (Auto) Neut % (Auto) Lymph % (Auto) [place] % (Auto) Eos % (Auto) Baso % (Auto) Absolute Neuts (auto) Absolute Lymphs (auto) Nucleated RBC % Sodium 138 Potassium 3.6 Chloride 102 Carbon Dioxide 29.0 Anion Gap 7 BUN 7 Creatinine 0.86 Estim Creat Clear Calc 42.05 Est GFR (MDRD) Af Amer 81 Est GFR (MDRD) Non-Af 67 BUN/Creatinine Ratio 8.2 L Glucose 187 H Lactic Acid 2.9 H* Calcium 9.2 Total Bilirubin 0.60 AST 41 H ALT 51 Alkaline Phosphatase 126 H Troponin I High Sens 15 Total Protein 7.1 Albumin 3.1 L Globulin 4.0 Albumin/Globulin Ratio 0.8 L Urine Color Yellow Urine Clarity Sl. Cloudy Urine pH 6.5 Ur Specific [place] 1.015 Urine Protein Negative Urine Glucose (UA) Normal Urine Ketones Negative Urine Occult Blood Negative Urine Nitrite Positive H Urine Bilirubin Negative Urine Urobilinogen Normal Ur Leukocyte Esterase 25 H Urine RBC 0 SEEN Urine WBC 0-5 SEEN Ur Squamous Epith Cells 0 SEEN Urine Bacteria 2+ Urine Mucus 0 SEEN 10/03/21 08:22 WBC 9.2 RBC 4.78 Hgb 14.6 Hct 45.8 MCV 95.8 MCH 30.5 MCHC 31.9 L RDW Std Deviation 53.1 H RDW Coeff of Sravan 15.0 H Plt Count 279 MPV 9.6 Immature Gran % (Auto) 0.400 Neut % (Auto) 81.7 H Lymph % (Auto) 10.0 L [place] % (Auto) 7.5 Eos % (Auto) 0.3 Baso % (Auto) 0.1 Absolute Neuts (auto) 7.5 Absolute Lymphs (auto) 0.92 Nucleated RBC % 0 Sodium Potassium Chloride Carbon Dioxide Anion Gap BUN Creatinine Estim Creat Clear Calc Est GFR (MDRD) Af Amer Est GFR (MDRD) Non-Af BUN/Creatinine Ratio Glucose Lactic Acid Calcium Total Bilirubin AST ALT Alkaline Phosphatase Troponin I High Sens Total Protein Albumin Globulin Albumin/Globulin Ratio Urine Color Urine Clarity Urine pH Ur Specific [place] Urine Protein Urine Glucose (UA) Urine Ketones Urine Occult Blood Urine Nitrite Urine Bilirubin Urine Urobilinogen Ur Leukocyte Esterase Urine RBC Urine WBC Ur Squamous Epith Cells Urine Bacteria Urine Mucus Discharge Plan Dx/Rx/DC Orders Clinical Impression: Weakness, Vomiting Disposition Disposition: Acute Care Hospital [facility]
[2021-10-03 08:21] LABS: Mucous, Urine 0 SEEN /hpf (<or=2+); Red Blood Cells-Urine 0 SEEN /hpf (0-5); Squamous Epithelial Cells - UA 0 SEEN /hpf (5-10)
[2021-10-03 08:32] LABS: Color, Urine Yellow (Yellow); Glucose, Dipstick Normal (Normal); Ketone-Dipstick Negative (Negative); Leukocyte Esterase-Dipstick 25 /ul (Negative); Nitrite-Dipstick Positive (Negative); Occult Blood-Urine Negative /ul (Negative); Protein-Dipstick Negative (Negative); Specific Gravity, Urine 1.015 (1.002-1.030); Urine Bilirubin Dipstick Negative (Negative); Urine Clarity Sl. Cloudy (Clear); Urine Urobilinogen Normal (Normal); Urine pH 6.5 (5.0 - 8.0)
[2021-10-03] MEDS: 0.9% Normal Saline 1,000 ML 150 ML IV ×2 (08:35→10:21)
[2021-10-03 08:37] LABS: Bacteria 2+ /hpf (None Seen); White Blood Cells 0-5 SEEN /hpf (0-5)
[2021-10-03 08:49] LABS: ALB/GLOB Ratio 0.8 RATIO (0.9-2.4); AST(SGOT) 41 U/L (15-37); Alanine Aminotransfer ALT/SGPT 51 U/L (13-56); Albumin, Serum 3.1 g/dL (3.2-5.0); Alkaline Phosphatase 126 U/L (45-117); Anion Gap 7 (5-15); BUN 7 mg/dL (7-18); BUN/Creat Ratio 8.2 RATIO (10-20); Calcium,Total 9.2 mg/dL (8.5-10.1); Chloride 102 mmol/L (98-107); Creatinine, Serum 0.86 mg/dL (0.55-1.02); EST Glomerular Filtration Rate 67 mL/min (>60); Est Glom Filt Rate - Afr Amer 81 mL/min (>60); Estimated Creatinine Clearance 42.05 ml/min; Glucose 187 mg/dL (74-106); Potassium 3.6 mmol/L (3.5-5.1); Protein, Total 7.1 g/dL (6.4-8.2); Sodium Level 138 mmol/L (136-145); Troponin-I HS 15 pg/mL (3.0-54.0)
[2021-10-03 08:59] LABS: Absolute Lymphocyte Count 0.92 X10^3/uL (0.83-4.51); Absolute Neutrophil Count 7.5 X10^3/uL (2.0-7.7); Basophil# 0.01 X10^3/uL; Basophil% 0.1 % (0-1); Eosinophil# 0.03 X10^3/uL; Eosinophils% 0.3 % (0-5); Hematocrit 45.8 % (37-47); Hemoglobin 14.6 g/dL (12.0-15.0); Lymphocyte # 0.92 X10^3/ul (0.83-4.51); Mean Corp Hgb Conc 31.9 g/dL (32-36); Mean Corpuscular Hgb 30.5 pg (27.0-32.0); Mean Corpuscular Volume 95.8 fL (81-99); Mean Platelet Vol. 9.6 fl (6.2-12.0); Monocyte# 0.69 X10^3/uL; Monocyte% 7.5 % (0-10); NRBC Flagged by Analyzer 0 % (0-5); Neutrophil # 7.51 X10^3/uL (2.7-7.7); Neutrophil % 81.7 % (47-70); Platelet Count 279 K/mm3 (150-450); RBC Distribution Width SD 53.1 fl (35.1-43.9); Red Blood Count 4.78 M/mm3 (4.2-5.4); White Blood Count 9.2 K/mm3 (4.4-11.0)
[2021-10-03 09:06] LABS: Lactic Acid 2.9 mmol/L (0.4-1.9)
[2021-10-03] MEDS: Acetaminophen 325 MG Tablet 650 MG PO ×2 (10:19→20:43)
[2021-10-03] MEDS: Ceftriaxone 1 GM/50 ML BAG IV (10:19)
--- NOTE | 2021-10-03 11:12 | HP.PCM.HOS_ITS ---
[facility] - General General Date of Admission: 10/03/21 Date of Service: 10/03/21 Chief Complaint: Generalized weakness HPI Narrative KARRIE DAVID, is a 85 F with multiple comorbidities including diabetes mellitus type 2, essential hypertension hypothyroidism who presents with generalized weakness. Patient symptoms started a couple of days prior to her admission. She did experience nausea and vomiting. She also felt she had UTI (has history of recurrent UTI). She did experience subjective fever as well as chills in addition to progressive generalized weakness. Presented to the emergency department as a result. In the emergency department urinalysis obtained did demonstrate positive nitrites with elevated leukocyte esterase patient was also found to have elevated lactic acid level however did not have any white cell count. Other diagnostic data did reveal severe hypokalemia. Patient was started on antibiotics correction of electrolyte initiated in the ED admitted to regular nursing floor for further management [facility] Medical History abnormal ultrasound right breast Acute bronchitis due to Haemophilus influenzae Anxiety and depression Asthma Breast cancer, right (~11/2018) Cancer Chronic obstructive pulmonary disease (COPD) Diabetes Diabetes mellitus, type II Difficulty swallowing Elevated liver enzymes GERD (gastroesophageal reflux disease) HLD (hyperlipidemia) HTN (hypertension) Hypothyroidism Irritable bowel Kidney disease Obesity (BMI 30-39.9) Home Medications aspirin 81 mg PO QHS 07/10/15 [History Last Taken 10/02/21] atenolol 100 mg PO DAILY 07/10/15 [History Last Taken 10/02/21] levothyroxine 112 mcg PO MOTUWETHFR 07/10/15 [History Last Taken 10/02/21] levothyroxine 224 mcg PO SUSA 07/10/15 [History Last Taken 09/29/21] montelukast 10 mg PO QHS 07/10/15 [History Last Taken 10/02/21] gabapentin 300 mg PO QHS 02/16/17 [History Last Taken 10/02/21] metformin 500 mg PO DAILY 06/02/17 [History Last Taken 07/29/19] ascorbic acid (vitamin C) 1,000 mg PO QHS 07/08/18 [History Last Taken 10/02/21] cranberry fruit concentrate 2 tab PO DAILY 07/08/18 [History Last Taken 10/02/21] duloxetine 30 mg PO BID 07/08/18 [History Last Taken 07/29/19] methenamine hippurate 1 gm PO QHS 07/08/18 [History Last Taken 10/02/21] vitamin E (dl, acetate) 400 units PO DAILY 11/02/18 [History Last Taken 10/02/21] amlodipine 2.5 mg PO DAILY 07/29/19 [History Last Taken 10/02/21] cholecalciferol (vitamin D3) 4,000 unit PO DAILY 07/29/19 [History Last Taken 10/02/21] clonidine HCl 0.1 mg PO DAILY 07/29/19 [History Last Taken 10/02/21] fexofenadine 180 mg PO QHS 07/29/19 [History Last Taken 10/02/21] isosorbide dinitrate 10 mg PO TIDCM 07/29/19 [History Last Taken 10/02/21] bismuth subsalicylate 262 mg PO PRN PRN 08/08/20 [History Last Taken Unknown] loperamide 2 mg PO TID PRN 08/08/20 [History Last Taken Unknown] budesonide-formoterol [Symbicort] 2 puff INHALATION BID 10/03/21 [History Last Taken 10/02/21] omeprazole [Prilosec] 40 mg PO BID 10/03/21 [History Last Taken 10/02/21] Allergy/AdvReac Type Severity Reaction Status Date / Time hydrocodone bitartrate AdvReac Other Verified 10/03/21 08:05 [From Vicodin] oxycodone HCl [From Percocet] AdvReac Other Verified 10/03/21 08:05 tramadol AdvReac Other Verified 10/03/21 08:05 NARCOTICS Allergy Other Uncoded 10/03/21 08:05 Family History Brother Breast cancer Kidney disease Heart disease Father Heart disease Surgical History history laminectomy with decompression History of cholecystectomy History of laparoscopic cholecystectomy History of left mastectomy History of right mastectomy (~11/2018) history partial right oophorectomy Status post left partial knee replacement Social History Smoking Status: Former smoker alcohol intake: never substance use type: does not use ROS ROS Narrative GENERAL: fever, chills, night sweats, HEENT: denies headache, sinus congestion, RESPIRATORY: denies cough, sputum production, CARDIAC: denies chest pain, palpitations, orthopnea, PND GASTROINTESTINAL: nausea, vomiting, a, GENITOURINARY: urgency, frequency, EXTREMITY: denies swelling MUSCULOSKELETAL: denies current joint pain or tenderness NEUROLOGIC: denies focal numbness, weakness, tingling HEMATOLOGIC: denies easy bruising and/or hemorrhage INTEGUMENT: denies rashes PSYCHIATRIC: denies suicidal or homicidal ideation Vital Signs Vital Signs Vital Signs: 10/03/21 07:59 10/03/21 08:07 10/03/21 09:09 Temperature 98.3 F 98.3 F 98.6 F Temperature Source Temporal Temporal Temporal Pulse Rate 114 H 114 H 100 Pulse Strength Respiratory Rate 116 H 16 19 H Respiratory Effort Respiratory Depth Respiratory Pattern Blood Pressure 145/103 H 145/103 H 156/103 H Blood Pressure Mean 117 117 120 Blood Pressure Source Blood Pressure Position Blood Pressure Location Pulse Ox 93 93 93 Oxygen Delivery Method Room Air Room Air Room Air 10/03/21 09:26 10/03/21 10:35 10/03/21 10:40 Temperature 98.6 F 97.9 F Temperature Source Temporal Oral Pulse Rate 100 97 94 Pulse Strength Respiratory Rate 19 H 16 Respiratory Effort Normal Non-Labored Respiratory Depth Normal Respiratory Pattern Normal Blood Pressure 156/103 H 151/64 H Blood Pressure Mean 120 93 Blood Pressure Source Monitor Blood Pressure Position Semi-Fowlers Blood Pressure Location Left Arm Pulse Ox 93 94 Oxygen Delivery Method Room Air Room Air 10/03/21 10:55 Temperature Temperature Source Pulse Rate Pulse Strength Normal (2+) Respiratory Rate Respiratory Effort Respiratory Depth Respiratory Pattern Blood Pressure Blood Pressure Mean Blood Pressure Source Blood Pressure Position Blood Pressure Location Pulse Ox Oxygen Delivery Method Weight Weight: 94.801 kg Body Mass Index (BMI) 35.9 Physical Exam Narrative GENERAL: cooperative HEENT: Atraumatic; EYES; Anicteric, Normal Conjunctiva NECK; supple, normal thyroid, RESPIRATORY: Diminished to auscultation CARDIOVASCULAR: Regular S1 S2, GI: soft, normoactive bowel sounds, : No Renal angle tenderness; EXTREMITIES: No edema, no clubbing, MUSCULOSKELETAL: no muscle wasting NEURO: Awake; no lateralizing signs. SKIN: No Rash PSYCH; Flat affect Results Lab / Micro Data Result Diagrams: 10/03/21 08:22 10/03/21 08:22 Labs: Laboratory Results - last 24 hr 10/03/21 08:05: Urine Color Yellow, Urine Clarity Sl. Cloudy, Urine pH 6.5, Ur Specific [place] 1.015, Urine Protein Negative, Urine Glucose (UA) Normal, Urine Ketones Negative, Urine Occult Blood Negative, Urine Nitrite Positive H, Urine Bilirubin Negative, Urine Urobilinogen Normal, Ur Leukocyte Esterase 25 H, Urine RBC 0 SEEN, Urine WBC 0-5 SEEN, Ur Squamous Epith Cells 0 SEEN, Urine Bacteria 2+, Urine Mucus 0 SEEN 10/03/21 08:22: Sodium 138, Potassium 3.6, Chloride 102, Carbon Dioxide 29.0, Anion Gap 7, BUN 7, Creatinine 0.86, Estim Creat Clear Calc 42.05, Est GFR (MDRD) Af Amer 81, Est GFR (MDRD) Non-Af 67, BUN/Creatinine Ratio 8.2 L, Glucose 187 H, Calcium 9.2, Total Bilirubin 0.60, AST 41 H, ALT 51, Alkaline Phosphatase 126 H, Troponin I High Sens 15, Total Protein 7.1, Albumin 3.1 L, Globulin 4.0, Albumin/Globulin Ratio 0.8 L 10/03/21 08:22: Lactic Acid 2.9 H* 10/03/21 08:22: WBC 9.2, RBC 4.78, Hgb 14.6, Hct 45.8, MCV 95.8, MCH 30.5, MCHC 31.9 L, RDW Std Deviation 53.1 H, RDW Coeff of Sravan 15.0 H, Plt Count 279, MPV 9.6, Immature Gran % (Auto) 0.400, Neut % (Auto) 81.7 H, Lymph % (Auto) 10.0 L, [place] % (Auto) 7.5, Eos % (Auto) 0.3, Baso % (Auto) 0.1, Absolute Neuts (auto) 7.5, Absolute Lymphs (auto) 0.92, Nucleated RBC % 0 Assessment & Plan Assessment/Plan (1) Hypokalemia: (2) Acute cystitis: PLAN: Patient is an 85-year-old female admitted with nausea vomiting progressive generalized weakness 1. Acute cystitis ? Patient has history of recurrent UTIs. Admitted to regular nursing floor started on Rocephin urine culture sent with plans to adjust antibiotics based on culture result 2. Intractable nausea vomiting ? Possibly related to above or gastritis. Patient is on PPI did continue 3. Hypokalemia ? Secondary to GI losses from #2. Patient has been admitted to [facility]. Potassium being replaced via IV route. Repeat potassium ordered for monitoring 4. Hypertension - Blood pressure controlled, home medications continued with dose adjustment as needed 5. Diabetes mellitus type II -patient's oral hypoglycemics held. Placed on long acting insulin, Accu-Cheks a .c. and at bedtime and covered with sliding scale insulin 6. Hypothyroidism - Patient is on levothyroxine home dose continued 7. History of right breast cancer ? Status post right mastectomy. Currently remission 8. Class II obesity with BMI of 35.2 ? Weight loss advised 9. GERD ? On PPI 10. DVT prophylaxis ? [place] Charges/Coding Visit Charges Inpatient E&M: 21810 Init Hosp L3
[2021-10-03] MEDS: KCL 20MEQ in 0.9% NS 20 MEQ/1,000 ML IV.SOLN. 150 MEQ IV ×2 (11:23→18:00)
[2021-10-03] MEDS: Enoxaparin 40 MG/0.4 ML Syringe SC (11:24)
[2021-10-03] MEDS: Potassium Chloride Oral Tablet 20 MEQ 40 MEQ PO (11:24)
[2021-10-03] MEDS: 0.9% Saline Lock 10 ML Syringe IV (11:34)
[2021-10-03 11:35] LABS: Bedside Glucose 168 mg/dL (74-106)
[2021-10-03] MEDS: Cholecalciferol (VIT D3) 25 MCG TABLET (1,000 UNITS) 100 MCG PO (11:35)
[2021-10-03] MEDS: DULoxetine Hcl 30 MG Capsule PO ×2 (11:35→20:08)
[2021-10-03] MEDS: Insulin Lispro 100 UNIT/ML INSULN.PEN SC (11:35)
[2021-10-03] MEDS: Loratadine 10 MG Tablet PO (11:35)
[2021-10-03] MEDS: Pantoprazole Sodium 40 MG Tablet PO ×2 (11:35→20:09)
[2021-10-03] MEDS: cloNIDine HCl 0.1 MG Tablet PO (11:35)
[2021-10-03] MEDS: Levothyroxine 112 MCG Tablet PO (11:36)
[2021-10-03] MEDS: amLODIPine 2.5 MG Tablet PO (11:36)
[2021-10-03] MEDS: Isosorbide DN 10 MG Tablet PO ×2 (12:40→15:21)
[2021-10-03] MEDS: Atenolol 100 MG Tablet PO (12:40)
[2021-10-03] MEDS: Albuterol 2.5 MG/3 ML VIAL.NEB. INHALATION ×2 (13:38→18:58)
[2021-10-03 15:30] LABS: Bedside Glucose 131 mg/dL (74-106)
[2021-10-03] MEDS: Budesonide Respules 0.5 MG/2 ML AMPUL.NEB. INHALATION (18:58)
[2021-10-03] MEDS: Gabapentin 300 MG Capsule PO (20:08)
[2021-10-03] MEDS: Methenamine Hippurate 1 GM Tablet PO (20:09)
[2021-10-03] MEDS: Montelukast 10 MG Tablet PO (20:10)
[2021-10-03] MEDS: Ascorbic Acid 500 MG Tablet 1000 MG PO (20:10)
[2021-10-03] MEDS: Aspirin E.C. 81 MG Tablet PO (20:11)
[2021-10-03 20:16] LABS: Bedside Glucose 140 mg/dL (74-106)
[2021-10-04] VITALS (7 sets, daily range): BP systolic 123–144; BP diastolic 45–59; PULSE 55–70; RESP 15–20; TEMP 36.4–36.7; O2SAT 92–96
[2021-10-04] MEDS: KCL 20MEQ in 0.9% NS 20 MEQ/1,000 ML IV.SOLN. 150 MEQ IV (00:34)
[2021-10-04] MEDS: Levothyroxine 112 MCG Tablet PO (06:23)
[2021-10-04 06:28] LABS: Absolute Lymphocyte Count 1.58 X10^3/uL (0.83-4.51); Absolute Neutrophil Count 2.7 X10^3/uL (2.0-7.7); Basophil# 0.02 X10^3/uL; Basophil% 0.4 % (0-1); Eosinophil# 0.09 X10^3/uL; Eosinophils% 1.8 % (0-5); Hematocrit 39.9 % (37-47); Lymphocyte # 1.58 X10^3/ul (0.83-4.51); Mean Corp Hgb Conc 30.1 g/dL (32-36); Mean Corpuscular Hgb 30.5 pg (27.0-32.0); Mean Corpuscular Volume 101.5 fL (81-99); Mean Platelet Vol. 9.7 fl (6.2-12.0); Monocyte# 0.67 X10^3/uL; Monocyte% 13.2 % (0-10); NRBC Flagged by Analyzer 0 % (0-5); Platelet Count 201 K/mm3 (150-450); RBC Distribution Width CV 15.5 % (11.6-14.6); Red Blood Count 3.93 M/mm3 (4.2-5.4); White Blood Count 5.1 K/mm3 (4.4-11.0)
[2021-10-04 06:41] LABS: Bedside Glucose 119 mg/dL (74-106)
[2021-10-04] MEDS: Albuterol 2.5 MG/3 ML VIAL.NEB. INHALATION ×2 (06:48→20:00)
[2021-10-04] MEDS: Budesonide Respules 0.5 MG/2 ML AMPUL.NEB. INHALATION ×2 (06:48→20:00)
[2021-10-04 06:58] LABS: Anion Gap 3 (5-15); BUN 7 mg/dL (7-18); Calcium,Total 8.2 mg/dL (8.5-10.1); Chloride 115 mmol/L (98-107); Creatinine, Serum 0.64 mg/dL (0.55-1.02); EST Glomerular Filtration Rate 94 mL/min (>60); Est Glom Filt Rate - Afr Amer 114 mL/min (>60); Estimated Creatinine Clearance 36.16 ml/min; Glucose 116 mg/dL (74-106); Magnesium 1.8 mg/dL (1.6-2.6); Potassium 4.6 mmol/L (3.5-5.1); Sodium Level 141 mmol/L (136-145)
--- NOTE | 2021-10-04 07:15 | PCM.PN.HOSP ---
Subjective Subjective Patient is an 85-year-old female admitted with nausea vomiting progressive generalized weakness and assessment of acute cystitis in the setting of significant electrolyte abnormalities made admitted to regular nursing floor for further management Objective Data Objective Data Vital Signs: Vital Signs Temp Pulse Resp BP Pulse Ox 98.1 F 70 18 130/59 H 92 10/04/21 03:10 10/04/21 06:49 10/04/21 06:49 10/04/21 03:10 10/04/21 06:49 Oxygen Delivery Method Room Air Weight: 94.801 kg Body Mass Index (BMI) 35.9 Intake & Output: Intake and Output for Last 24 Hours 10/02/21 10/03/21 10/04/21 23:59 23:59 23:59 Intake Total 1967.5 / 1967.5 1285 / 1285 Output Total 650 / 650 400 / 400 Balance 1317.5 / 1317.5 885 / 885 Lab / Micro Data Result Diagrams: 10/04/21 05:10 10/04/21 05:10 Labs: Laboratory Results - last 24 hr 10/03/21 08:05: Urine Color Yellow, Urine Clarity Sl. Cloudy, Urine pH 6.5, Ur Specific [place] 1.015, Urine Protein Negative, Urine Glucose (UA) Normal, Urine Ketones Negative, Urine Occult Blood Negative, Urine Nitrite Positive H, Urine Bilirubin Negative, Urine Urobilinogen Normal, Ur Leukocyte Esterase 25 H, Urine RBC 0 SEEN, Urine WBC 0-5 SEEN, Ur Squamous Epith Cells 0 SEEN, Urine Bacteria 2+, Urine Mucus 0 SEEN 10/03/21 08:22: Sodium 138, Potassium 3.6, Chloride 102, Carbon Dioxide 29.0, Anion Gap 7, BUN 7, Creatinine 0.86, Estim Creat Clear Calc 42.05, Est GFR (MDRD) Af Amer 81, Est GFR (MDRD) Non-Af 67, BUN/Creatinine Ratio 8.2 L, Glucose 187 H, Calcium 9.2, Total Bilirubin 0.60, AST 41 H, ALT 51, Alkaline Phosphatase 126 H, Troponin I High Sens 15, Total Protein 7.1, Albumin 3.1 L, Globulin 4.0, Albumin/Globulin Ratio 0.8 L 10/03/21 08:22: Lactic Acid 2.9 H* 10/03/21 08:22: WBC 9.2, RBC 4.78, Hgb 14.6, Hct 45.8, MCV 95.8, MCH 30.5, MCHC 31.9 L, RDW Std Deviation 53.1 H, RDW Coeff of Sravan 15.0 H, Plt Count 279, MPV 9.6, Immature Gran % (Auto) 0.400, Neut % (Auto) 81.7 H, Lymph % (Auto) 10.0 L, Owsley % (Auto) 7.5, Eos % (Auto) 0.3, Baso % (Auto) 0.1, Absolute Neuts (auto) 7.5, Absolute Lymphs (auto) 0.92, Nucleated RBC % 0 10/03/21 11:26: POC Glucose 168 H 10/03/21 15:20: POC Glucose 131 H 10/03/21 20:05: POC Glucose 140 H 10/04/21 05:10: WBC 5.1, RBC 3.93 L, Hgb 12.0, Hct 39.9, MCV 101.5 H D, MCH 30.5, MCHC 30.1 L D, RDW Std Deviation 58.0 H, RDW Coeff of Sravan 15.5 H, Plt Count 201, MPV 9.7, Immature Gran % (Auto) 0.600, Neut % (Auto) 53.0, Lymph % (Auto) 31.0, Owsley % (Auto) 13.2 H, Eos % (Auto) 1.8, Baso % (Auto) 0.4, Absolute Neuts (auto) 2.7, Absolute Lymphs (auto) 1.58, Nucleated RBC % 0 10/04/21 05:10: Sodium 141, Potassium 4.6, Chloride 115 H, Carbon Dioxide 23.0, Anion Gap 3 L, BUN 7, Creatinine 0.64, Estim Creat Clear Calc 36.16, Est GFR (MDRD) Af Amer 114, Est GFR (MDRD) Non-Af 94, BUN/Creatinine Ratio 11.0, Glucose 116 H, Calcium 8.2 L, Magnesium 1.8 10/04/21 06:19: POC Glucose 119 H Physical Exam Narrative GENERAL: cooperative HEENT: Atraumatic; EYES; Anicteric, Normal Conjunctiva NECK; supple, normal thyroid, RESPIRATORY: Diminished to auscultation CARDIOVASCULAR: Regular S1 S2, GI: soft, normoactive bowel sounds, : No Renal angle tenderness; EXTREMITIES: No edema, no clubbing, MUSCULOSKELETAL: no muscle wasting NEURO: Awake; no lateralizing signs. SKIN: No Rash PSYCH; Flat affect Assessment & Plan Assessment/Plan (1) Hypokalemia: (2) Acute cystitis: PLAN: Patient is an 85-year-old female admitted with nausea vomiting progressive generalized weakness 1. Acute cystitis ? Patient has history of recurrent UTIs. Admitted to regular nursing floor started on Rocephin urine culture sent with plans to adjust antibiotics based on culture result ? 10/04/2021; urine cultures pending plan is to continue with current antibiotic therapy and adjust doses pending culture results 2. Intractable nausea vomiting ? Possibly related to above or gastritis. Patient is on PPI did continue ? 10/04/2021; symptoms improved 3. Hypokalemia ? Secondary to GI losses from #2. Patient has been admitted to [facility] telemetry. Potassium being replaced via IV route. Repeat potassium ordered for monitoring ? 10/04/2021 potassium level 4.6 4. Hypertension - Blood pressure controlled, home medications continued with dose adjustment as needed 5. Diabetes mellitus type II -patient's oral hypoglycemics held. Placed on long acting insulin, Accu-Cheks a.c. and at bedtime and covered with sliding scale insulin 6. Hypothyroidism - Patient is on levothyroxine home dose continued 7. History of right breast cancer ? Status post right mastectomy. Currently remission 8. Class II obesity with BMI of 35.2 ? Weight loss advised 9. GERD ? On PPI 10. DVT prophylaxis ? [place] Lovenox Charges/Coding Visit Charges Inpatient E&M: 51138 Subs Hosp L2
--- NOTE | 2021-10-04 10:34 | NURSING ---
This RN is aware of the Vital Signs that were taken for this pt by Roshni Schmidt RN v
[2021-10-04] MEDS: cloNIDine HCl 0.1 MG Tablet PO (10:36)
[2021-10-04] MEDS: amLODIPine 2.5 MG Tablet PO (10:36)
[2021-10-04] MEDS: DULoxetine Hcl 30 MG Capsule PO ×2 (10:36→21:37)
[2021-10-04] MEDS: Pantoprazole Sodium 40 MG Tablet PO ×2 (10:36→21:36)
[2021-10-04] MEDS: Loratadine 10 MG Tablet PO (10:36)
[2021-10-04] MEDS: Cholecalciferol (VIT D3) 25 MCG TABLET (1,000 UNITS) 100 MCG PO (10:36)
[2021-10-04] MEDS: Enoxaparin 40 MG/0.4 ML Syringe SC (10:37)
[2021-10-04] MEDS: Atenolol 100 MG Tablet PO (10:38)
[2021-10-04] MEDS: Ceftriaxone 1 GM/50 ML BAG IV (11:30)
[2021-10-04] MEDS: Acetaminophen 325 MG Tablet 650 MG PO ×2 (11:30→21:58)
--- NOTE | 2021-10-04 11:30 | CASEMGMT ---
RN KRISTYN Face to Face with patient for initial transition planning/care coordination assessment. RN CM introduced self and role at [facility]. Patient sitting in chair, alert and oriented, daughter at bedside. Patient willing to participate in assessment and is able to answer all questions appropriately. Care providers, pharmacy, and demographics verified. Patient wishes to discharge home and resume outpatient therapy at [facility]. Patient statess he has no further needs or concerns at this time. CM to follow for discharge planning needs that may arise. PCP: Linda Specialists: Michael, ben, Rosales, GI; Shahbaz, ortho; urologist Apurva Preferred Pharmacy: [facility] Insurance: [employer], [employer] Prescription Benefit: yes Living Will/HPOA: yes, daughter Sena Diane LNOK: and daughter Living Arrangements: Patient states she lives with in a single story home with 2 steps to enter. Patient states assists with bathing, independent for dressing and toileting. Transportation: , daughter DME/HHC: Patient states she has shower chair, walker, rollator, wheelchair, glucometer and testing supplies. Patient states she has been to [facility] in the past and had [facility] in the past. Patient states she was to be evaluated at [facility] for outpatient therapy. Disposition Plan: Patient to discharge home with outpatient therapy ordered by PCP, family support, and follow-up plans in place. Shaunna ALEXANDER, RN, CM
[2021-10-04] MEDS: Insulin Lispro 100 UNIT/ML INSULN.PEN SC (11:31)
[2021-10-04] MEDS: Isosorbide DN 10 MG Tablet PO ×2 (11:31→17:14)
[2021-10-04] MEDS: 0.9% Saline Lock 10 ML Syringe IV (11:35)
[2021-10-04 11:55] LABS: Bedside Glucose 170 mg/dL (74-106)
[2021-10-04 17:00] LABS: Bedside Glucose 149 mg/dL (74-106)
--- NOTE | 2021-10-04 19:33 | NURSING ---
This nurse attempted to restart IV again since it came out earlier today. Attempted x2 and unsuccessful. Will notify Saige LOPES charge.
[2021-10-04] MEDS: Montelukast 10 MG Tablet PO (21:36)
[2021-10-04] MEDS: Methenamine Hippurate 1 GM Tablet PO (21:36)
[2021-10-04] MEDS: Gabapentin 300 MG Capsule PO (21:36)
[2021-10-04] MEDS: Aspirin E.C. 81 MG Tablet PO (21:37)
[2021-10-04] MEDS: Ascorbic Acid 500 MG Tablet 1000 MG PO (21:38)
[2021-10-04 22:51] LABS: Bedside Glucose 137 mg/dL (74-106)
[2021-10-05 03:00] VITALS: BP 113/54; PULSE 68; RESP 14; TEMP 37; O2SAT 95
[2021-10-05] MEDS: Ibuprofen 600 MG Tablet PO ×2 (03:02→11:22)
[2021-10-05 06:59] VITALS: PULSE 68; RESP 18; O2SAT 94
[2021-10-05] MEDS: Albuterol 2.5 MG/3 ML VIAL.NEB. INHALATION ×2 (06:59→12:28)
[2021-10-05] MEDS: Budesonide Respules 0.5 MG/2 ML AMPUL.NEB. INHALATION (06:59)
[2021-10-05] MEDS: Levothyroxine 112 MCG Tablet 224 MCG PO (07:03)
[2021-10-05 07:10] LABS: Bedside Glucose 127 mg/dL (74-106)
--- NOTE | 2021-10-05 07:25 | PCM.PN.HOSP ---
Subjective Subjective Patient urine cultures so far positive for E. coli. Patient on appropriate antibiotic therapy. Patient be assessed for discharge today Objective Data Objective Data Vital Signs: Vital Signs Temp Pulse Resp BP Pulse Ox 98.6 F 68 14 113/54 L 95 10/05/21 03:00 10/05/21 03:00 10/05/21 03:00 10/05/21 03:00 10/05/21 03:00 Oxygen Delivery Method Room Air Weight: 94.801 kg Body Mass Index (BMI) 35.9 Intake & Output: Intake and Output for Last 24 Hours 10/03/21 10/04/21 10/05/21 23:59 23:59 23:59 Intake Total 1967.5 / 1967.5 3164.75 / 3404.75 240 / 240 Output Total 650 / 650 1400 / 1400 Balance 1317.5 / 1317.5 1764.75 / 2004.75 240 / 240 Lab / Micro Data Result Diagrams: 10/04/21 05:10 10/04/21 05:10 Labs: Laboratory Results - last 24 hr 10/04/21 11:29: POC Glucose 170 H 10/04/21 16:29: POC Glucose 149 H 10/04/21 21:57: POC Glucose 137 H 10/05/21 06:59: POC Glucose 127 H Micro: Microbiology 10/03/21 08:05 Urine, Catheterized Urine Culture - Preliminary Gram negative roberto Physical Exam Narrative GENERAL: cooperative HEENT: Atraumatic; EYES; Anicteric, Normal Conjunctiva NECK; supple, normal thyroid, RESPIRATORY: Diminished to auscultation CARDIOVASCULAR: Regular S1 S2, GI: soft, normoactive bowel sounds, : No Renal angle tenderness; EXTREMITIES: No edema, no clubbing, MUSCULOSKELETAL: no muscle wasting NEURO: Awake; no lateralizing signs. SKIN: No Rash PSYCH; Flat affect Assessment & Plan Assessment/Plan (1) Hypokalemia: (2) Acute cystitis: PLAN: Patient is an 85-year-old female admitted with nausea vomiting progressive generalized weakness 1. Acute cystitis ? Patient has history of recurrent UTIs. Admitted to regular nursing floor started on Rocephin urine culture sent with plans to adjust antibiotics based on culture result ? 10/04/2021; urine cultures pending plan is to continue with current antibiotic therapy and adjust doses pending culture results ?10/05/2021; Patient urine cultures so far positive for E. coli. Patient on appropriate antibiotic therapy. Patient be assessed for discharge today 2. Intractable nausea vomiting ? Possibly related to above or gastritis. Patient is on PPI did continue ? 10/04/2021; symptoms improved 3. Hypokalemia ? Secondary to GI losses from #2. Patient has been admitted to [facility] telemetry. Potassium being replaced via IV route. Repeat potassium ordered for monitoring ? 10/04/2021 potassium level 4.6 4. Hypertension - Blood pressure controlled, home medications continued with dose adjustment as needed 5. Diabetes mellitus type II -patient's oral hypoglycemics held. Placed on long acting insulin, Accu-Cheks a.c. and at bedtime and covered with sliding scale insulin 6. Hypothyroidism - Patient is on levothyroxine home dose continued 7. History of right breast cancer ? Status post right mastectomy. Currently remission 8. Class II obesity with BMI of 35.2 ? Weight loss advised 9. GERD ? On PPI 10. DVT prophylaxis ? [place] Charges/Coding Visit Charges Inpatient E&M: 77612 Subs Hosp L2
--- NOTE | 2021-10-05 09:06 | PCM.DC.SUM ---
Providers Date of Admission: 10/03/21 Primary Care Physician: Dr. Carin Mckeon DO Reason For Visit: ACUTE CYSTITIS / HYPOKALEMIA Diagnosis Discharge Diagnosis (1) Hypokalemia: Status: Acute Code(s): E87.6 - Hypokalemia (2) Acute cystitis: Status: Acute Code(s): N30.00 - Acute cystitis without hematuria Medications at Discharge Home Medications aspirin 81 mg PO QHS 07/10/15 atenolol 100 mg PO DAILY 07/10/15 levothyroxine 112 mcg PO MOTUWETHFR 07/10/15 levothyroxine 224 mcg PO SUSA 07/10/15 montelukast 10 mg PO QHS 07/10/15 gabapentin 300 mg PO QHS 02/16/17 metformin 500 mg PO DAILY 06/02/17 ascorbic acid (vitamin C) 1,000 mg PO QHS 07/08/18 cranberry fruit concentrate 2 tab PO DAILY 07/08/18 duloxetine 30 mg PO BID 07/08/18 methenamine hippurate 1 gm PO QHS 07/08/18 vitamin E (dl, acetate) 400 units PO DAILY 11/02/18 amlodipine 2.5 mg PO DAILY 07/29/19 cholecalciferol (vitamin D3) 4,000 unit PO DAILY 07/29/19 clonidine HCl 0.1 mg PO DAILY 07/29/19 fexofenadine 180 mg PO QHS 07/29/19 isosorbide dinitrate 10 mg PO TIDCM 07/29/19 bismuth subsalicylate 262 mg PO PRN PRN 08/08/20 loperamide 2 mg PO TID PRN 08/08/20 budesonide-formoterol [Symbicort] 2 puff INHALATION BID 10/03/21 omeprazole 40 mg PO BID 10/03/21 cefdinir 300 mg PO BID #10 cap 10/05/21 Hospital Course Summary of Care Provided Minutes Spent on Discharge: 35 Hospital Course: Patient is an 85-year-old female admitted with nausea vomiting progressive generalized weakness 1. Acute cystitis ? Patient has history of recurrent UTIs. Admitted to regular nursing floor started on Rocephin urine culture sent with plans to adjust antibiotics based on culture result ? 10/04/2021; urine cultures pending plan is to continue with current antibiotic therapy and adjust doses pending culture results ?10/05/2021; Patient urine cultures so far positive for E. coli. Patient on appropriate antibiotic therapy. Patient be assessed for discharge today 2. Intractable nausea vomiting ? Possibly related to above or gastritis. Patient is on PPI did continue ? 10/04/2021; symptoms improved 3. Hypokalemia ? Secondary to GI losses from #2. Patient has been admitted to [facility] telemetry. Potassium being replaced via IV route. Repeat potassium ordered for monitoring ? 10/04/2021 potassium level 4.6 4. Hypertension - Blood pressure controlled, home medications continued with dose adjustment as needed 5. Diabetes mellitus type II -patient's oral hypoglycemics held. Placed on long acting insulin, Accu-Cheks a.c. and at bedtime and covered with sliding scale insulin 6. Hypothyroidism - Patient is on levothyroxine home dose continued 7. History of right breast cancer ? Status post right mastectomy. Currently remission 8. Class II obesity with BMI of 35.2 ? Weight loss advised 9. GERD ? On PPI 10. DVT prophylaxis ? [place] Lovenox Physical Exam Narrative GENERAL: cooperative HEENT: Atraumatic; EYES; Anicteric, Normal Conjunctiva NECK; supple, normal thyroid, RESPIRATORY: Diminished to auscultation CARDIOVASCULAR: Regular S1 S2, GI: soft, normoactive bowel sounds, : No Renal angle tenderness; EXTREMITIES: No edema, no clubbing, MUSCULOSKELETAL: no muscle wasting NEURO: Awake; no lateralizing signs. SKIN: No Rash PSYCH; Flat affect Weight / BMI Weight Weight: 94.801 kg Body Mass Index (BMI) 35.9 ABG / Lab / Microbiology Data Result Diagrams: 10/04/21 05:10 10/04/21 05:10 Laboratory: Laboratory Results - last 24 hr 10/04/21 11:29: POC Glucose 170 H 10/04/21 16:29: POC Glucose 149 H 10/04/21 21:57: POC Glucose 137 H 10/05/21 06:59: POC Glucose 127 H Microbiology: Microbiology 10/03/21 08:05 Urine, Catheterized Urine Culture - Final Escherichia coli D/C Instructions Discharge Diet: 1800 Calorie Control Diet Discharge Activity: Return to Normal Activity Call your doctor if you observe: Fever of 101 or Higher, Shortness of breath, Fainting spells and Chest pain Meaningful Use Info Meaningful Use Diagnoses (Choose all that apply): None applicable Discharge Plan Admission Admit Date/Time: 10/03/21 09:46 Attending Provider: Ford Reyes Primary Care Provider: Carin Mckeon Discharge Orders/Prescriptions Prescriptions: New cefdinir 300 mg capsule 300 mg PO BID Qty: 10 RF: 0 Continued atenolol 100 MG tablet 100 mg PO DAILY RF: 0 aspirin 81 MG tablet 81 mg PO QHS RF: 0 montelukast 10 MG tablet 10 mg PO QHS RF: 0 levothyroxine 112 MCG tablet 224 mcg PO SUSA RF: 0 levothyroxine 112 MCG tablet 112 mcg PO MOTUWETHFR RF: 0 gabapentin 300 MG capsule 300 mg PO QHS RF: 0 metformin 500 MG tablet 500 mg PO DAILY RF: 0 ascorbic acid (vitamin C) 1,000 MG tablet 1,000 mg PO QHS RF: 0 methenamine hippurate 1 GM tablet 1 gm PO QHS RF: 0 duloxetine 30 MG capsule 30 mg PO BID RF: 0 cranberry fruit concentrate 250 MG tablet,chewable 2 tab PO DAILY RF: 0 vitamin E (dl, acetate) 400 UNITS capsule 400 units PO DAILY RF: 0 clonidine HCl 0.1 MG tablet 0.1 mg PO DAILY RF: 0 amlodipine 2.5 MG tablet 2.5 mg PO DAILY RF: 0 fexofenadine 180 MG tablet 180 mg PO QHS RF: 0 isosorbide dinitrate 5 MG tablet 10 mg PO TIDCM RF: 0 cholecalciferol (vitamin D3) 2,000 UNIT tablet,chewable 4,000 unit PO DAILY RF: 0 loperamide 2 MG capsule 2 mg PO TID PRN (Reason: diarrhea') RF: 0 bismuth subsalicylate 262 MG tablet 262 mg PO PRN PRN (Reason: Diarrhea) RF: 0 omeprazole 40 mg Capsule,Delayed Release(Dr/Ec) 40 mg PO BID RF: 0 budesonide-formoterol [Symbicort] 80-4.5 mcg/actuation Hfa Aerosol Inhaler 2 puff INHALATION BID RF: 0 Referrals / Follow Up: Carin Mckeon DO [Primary Care Provider] - Disposition Disposition (needs filled in before D/C Order can be placed): Home, Self Care Charges/Coding Visit Charges Inpatient E&M: 77399 Disch Hosp
[2021-10-05 09:27] VITALS: BP 140/42; PULSE 68; RESP 18; TEMP 36.7; O2SAT 96
[2021-10-05] MEDS: Isosorbide DN 10 MG Tablet PO ×2 (09:47→11:53)
[2021-10-05] MEDS: DULoxetine Hcl 30 MG Capsule PO (09:47)
[2021-10-05] MEDS: Enoxaparin 40 MG/0.4 ML Syringe SC (09:47)
[2021-10-05] MEDS: cloNIDine HCl 0.1 MG Tablet PO (09:47)
[2021-10-05] MEDS: Atenolol 100 MG Tablet PO (09:47)
[2021-10-05] MEDS: Loratadine 10 MG Tablet PO (09:47)
[2021-10-05] MEDS: Pantoprazole Sodium 40 MG Tablet PO (09:47)
[2021-10-05] MEDS: amLODIPine 2.5 MG Tablet PO (09:47)
[2021-10-05] MEDS: Cholecalciferol (VIT D3) 25 MCG TABLET (1,000 UNITS) 100 MCG PO (09:48)
[2021-10-05] MEDS: Ceftriaxone 1 GM/50 ML BAG IV (09:49)
[2021-10-05] MEDS: Insulin Lispro 100 UNIT/ML INSULN.PEN SC (11:52)
[2021-10-05 12:01] LABS: Bedside Glucose 191 mg/dL (74-106)
[2021-10-05 12:28] VITALS: PULSE 61; RESP 16
== END 2021-10-05 14:40 | disposition home or self-care (01) | DRG 690 ==
LOC: ED 09:19 → MS3 10-04 08:32
PROVIDERS: Admitting Provider Internal Medicine; Emergency Provider Emergency Medicine; PCP Internal Medicine; Visit Provider Internal Medicine
DX: N30.00 Acute cystitis without hematuria (principal); B96.20 Unspecified Escherichia coli [E. coli] as the cause of diseases classified elsewhere; E11.9 Type 2 diabetes mellitus without complications; E03.9 Hypothyroidism, unspecified; E66.9 Obesity, unspecified; J44.9 Chronic obstructive pulmonary disease, unspecified; E78.5 Hyperlipidemia, unspecified; I10 Essential (primary) hypertension; E87.6 Hypokalemia; K21.9 Gastro-esophageal reflux disease without esophagitis; K29.70 Gastritis, unspecified, without bleeding; Z90.13 Acquired absence of bilateral breasts and nipples; Z68.35 Body mass index [BMI] 35.0-35.9, adult; Z79.82 Long term (current) use of aspirin; Z79.84 Long term (current) use of oral hypoglycemic drugs; Z79.899 Other long term (current) drug therapy; Z87.891 Personal history of nicotine dependence; Z87.440 Personal history of urinary (tract) infections; Z85.3 Personal history of malignant neoplasm of breast
CPT/HCPCS: 36415; 80048; 80053; 81001; 82962; 83605; 83735; 84484; 85025; 87040; 87077; 87086; 87088; 87186; 93005; 94640; 97110; 97162; 97166; 97530; 97802; 99251; 99285; J7030; J7050; A4216; G0463

== ENCOUNTER → 2021-10-09 | Outpatient (CLI) | payer MEDICARE, OTHER, SELFPAY ==
[2018-12-14 15:07] VITALS: BMI 33.4
--- NOTE | 2021-10-09 09:56 | US_ITS ---
STUDY: ABDOMINAL ULTRASOUND - RIGHT UPPER QUADRANT REASON FOR VISIT: Female, 85 years old ELEVATED LIVER ENZ TECHNIQUE: Ultrasound evaluation of the right upper quadrant was performed with real-time and static holliday-scale imaging. TECHNICAL QUALITY: Adequate. COMPARISON: None. FINDINGS: Liver: The liver measures 14.2 cm. There is increased echogenicity consistent with fatty infiltration. The bile ducts are within normal limits. There is hepatic color flow. The direction of portal flow is hepatopetal. There is no demonstrated mass lesion. Gallbladder: The patient is status post cholecystectomy. Common Bile Duct (C.B.D.): The common bile duct measures 12.8 mm. Pancreas: There is nonvisualization of the pancreas due to overlying bowel gas. Right Kidney: Normal size of the right kidney. The right kidney measures 9.4 cm x 5 cm x 4.9 cm. Normal renal cortex. The right cortex measures 2.2 cm. There is no demonstrated renal mass or cyst. There is no right hydronephrosis. I suspect a 7 mm x 6 mm x 4 mm right mid calyceal calculus. US/Abdomen Limited IMPRESSION: Fatty infiltration of the liver. Findings suggestive of a 7 mm x 6 mm x 7 mm calculus in the midpole calyx of the right kidney Electronically Signed: Shai Gonzalez MD at 14:16 EDT ,
== END | disposition home or self-care (01) ==
LOC: US 09:53
PROVIDERS: PCP Internal Medicine; Referring Provider Internal Medicine; Visit Provider Internal Medicine
DX: R74.01 Elevation of levels of liver transaminase levels (principal)
CPT/HCPCS: 76705

== ENCOUNTER → 2021-10-11 | Outpatient (CLI) | payer MEDICARE, OTHER, SELFPAY ==
[2018-12-14 15:07] VITALS: BMI 33.4
[2021-10-11 13:38] LABS: Potassium 3.7 mmol/L (3.5-5.1)
[2021-10-11 13:51] LABS: Lactic Acid 1.7 mmol/L (0.4-1.9)
== END | disposition home or self-care (01) ==
LOC: LAB 12:50
PROVIDERS: PCP Internal Medicine; Referring Provider Internal Medicine; Visit Provider Internal Medicine
DX: R79.89 Other specified abnormal findings of blood chemistry (principal); E87.6 Hypokalemia; N39.0 Urinary tract infection, site not specified
CPT/HCPCS: 83605; 84132

== ENCOUNTER → 2021-10-29 | Outpatient (CLI) | payer MEDICARE, OTHER, SELFPAY ==
[2018-12-14 15:07] VITALS: BMI 33.4
--- NOTE | 2021-10-29 07:01 | CT_ITS ---
STUDY: CT ABDOMEN AND PELVIS WITHOUT CONTRAST REASON FOR EXAM: Female, 85 years old. KIDNEY CALC // UTI RADIATION DOSAGE (If Supplied By Facility): CTDIvol = ( 17.01 ) mGy, DLP = ( 884.11 ) mGycm TECHNIQUE: Transaxial images were obtained from the dome of the diaphragm to the symphysis pubis without oral contrast, and without intravenous contrast. Sagittal and coronal images were reconstructed. Individualized dose optimization techniques were used for this CT. COMPARISON: None. FINDINGS: The visualized lung bases are unremarkable. The visualized portions of the heart are within normal limits. Normal liver. There are surgical clips in the gallbladder fossa consistent with a prior cholecystectomy. Layering calculi in the distal CBD. Common bile duct caliber is not significant changed compared to 02/12/2021. Normal spleen. Normal pancreas. Normal bilateral adrenal glands. Small right punctate left renal collecting system calculi. No finding of obstruction. Normal visualized stomach. Normal small intestine. Normal colon. There is non-visualization of the appendix. Normal abdominal aorta. Normal inferior vena cava. Normal retroperitoneum. Normal urinary bladder. There is atrophy of the uterus. Normal abdominal wall. Lower lumbar spine degenerative change. Thoracic spine stimulator leads. CT/Abdomen/Pelvis without Cont IMPRESSION: Bilateral nonobstructing renal collecting system calculi. No finding of urinary obstruction. Layering nonobstructive calculi in the distal common bile duct. Electronically Signed: Hiren Cao MD at 8:26 EDT ,
== END | disposition home or self-care (01) ==
LOC: CT 06:58
PROVIDERS: PCP Internal Medicine; Visit Provider Urology
DX: N20.0 Calculus of kidney (principal); N39.0 Urinary tract infection, site not specified
CPT/HCPCS: 74176

== ENCOUNTER 2022-01-17 15:53 | Emergency (ER) | payer MEDICARE, OTHER, SELFPAY ==
[2018-12-14 15:07] VITALS: BMI 33.4
[2022-01-17 15:55] VITALS: BP 134/70; PULSE 57; RESP 18; TEMP 36.2; O2SAT 97; BMI 34.3
--- NOTE | 2022-01-17 18:09 | EDS_ITS ---
HPI HPI - GI History of Present Illness Chief Complaint: Diarrhea Informant: patient Abdominal Pain/Flank Pain Onset: Days (5) Context: Gradual Onset Timing: Intermittent Quality: - (gas pain) Location: - (suprapubic/lower abd) Current Severity: Mild Maximum Severity: Mild Worsened by: Nothing Relieved by: Nothing Nausea/Vomiting/Emesis GI Symptom: Positive for Nausea; Negative for Vomiting Diarrhea/Melena/Hematochezia GI Symptom: Positive for Diarrhea; Negative for Melena or Hematochezia Onset: Days (5) Stool Quality: Positive for Loose; Negative for Maroon Associated Symptoms Associated Symptoms: Negative for Dysuria, Frequency or Hematuria Narrative Narrative: Patient presenting for diarrhea. She states he has a history of irritable bowel syndrome and thinks that the symptoms are related. She has had 1 or 2 bouts per day for the last 5 days except she has not had any today. She has been taking Imodium and thinks that might be helping, she is following her doctor's orders with regards to the dosing of that which is 6 pills/day max. She states each episode is a lot, but she admits that she is not going all that often. She is feeling really weak, and having trouble moving her legs as a result. She states oftentimes when this happens she has a urinary infection, she gets no other urinary symptoms with this when that happens. She states she saw her doctor earlier today and had a urinalysis that was unremarkable, and she is requesting another 1 even under the impression that he will need to be done as a straight cath [facility] Medical History abnormal ultrasound right breast Acute bronchitis due to Haemophilus influenzae Anxiety and depression Asthma Breast cancer, right (~11/2018) Cancer Chronic obstructive pulmonary disease (COPD) Diabetes Diabetes mellitus, type II Difficulty swallowing Elevated liver enzymes GERD (gastroesophageal reflux disease) HLD (hyperlipidemia) HTN (hypertension) Hypothyroidism Irritable bowel Kidney disease Obesity (BMI 30-39.9) Home Medications aspirin 81 mg tablet,delayed release 81 mg PO QHS HRT 07/10/15 [History Last Taken 10/02/21] atenolol 100 mg tablet 100 mg PO DAILY bp 07/10/15 [History Last Taken 10/02/21] levothyroxine 112 mcg tablet 112 mcg PO MOTUWETHFR THYROID 07/10/15 [History Last Taken 10/02/21] levothyroxine 112 mcg tablet 224 mcg PO SUSA THYROID 07/10/15 [History Last Taken 09/29/21] montelukast 10 mg tablet 10 mg PO QHS ALLERGY 07/10/15 [History Last Taken 10/02/21] gabapentin 300 mg capsule 300 mg PO QHS NERVE PAIN 02/16/17 [History Last Taken 10/02/21] metformin 500 mg tablet,extended release 24 hr 500 mg PO DAILY diabetes 06/02/17 [History Last Taken 07/29/19] ascorbic acid (vitamin C) 1,000 mg tablet 1,000 mg PO QHS SUPPLEMENT 07/08/18 [History Last Taken 10/02/21] cranberry fruit concentrate 250 mg chewable tablet 2 tab PO DAILY UTI 07/08/18 [History Last Taken 10/02/21] duloxetine 30 mg capsule,delayed release 30 mg PO BID DEPRESSION 07/08/18 [History Last Taken 07/29/19] methenamine hippurate 1 gram tablet 1 gm PO QHS UTI 07/08/18 [History Last Taken 10/02/21] vitamin E (dl, acetate) 180 mg (400 unit) capsule 400 units PO DAILY SUPPLEMENT 11/02/18 [History Last Taken 10/02/21] amlodipine 2.5 mg tablet 2.5 mg PO DAILY BP 07/29/19 [History Last Taken 10/02/21] cholecalciferol (vitamin D3) 50 mcg (2,000 unit) chewable tablet 4,000 unit PO DAILY SUPPLEMENT 07/29/19 [History Last Taken 10/02/21] clonidine HCl 0.1 mg tablet 0.1 mg PO DAILY BP 07/29/19 [History Last Taken 10/02/21] fexofenadine 180 mg tablet 180 mg PO QHS ALLERGIES 07/29/19 [History Last Taken 10/02/21] isosorbide dinitrate 5 mg tablet 10 mg PO TIDCM THROAT SPASMS 07/29/19 [History Last Taken 10/02/21] bismuth subsalicylate 262 mg tablet 262 mg PO PRN PRN Diarrhea 08/08/20 [History Last Taken Unknown] loperamide 2 mg capsule 2 mg PO TID PRN diarrhea' 08/08/20 [History Last Taken Unknown] budesonide-formoterol HFA 80 mcg-4.5 mcg/actuation aerosol inhaler (Symbicort) 2 puff inhalation BID breathing 10/03/21 [History Last Taken 10/02/21] omeprazole 40 mg capsule,delayed release 40 mg PO BID gerd 10/03/21 [History Last Taken 10/02/21] cefdinir 300 mg capsule 300 mg PO BID #10 caps 10/05/21 [Rx Last Taken Unknown] dicyclomine 10 mg capsule 10 mg PO Q6H PRN PRN abdominal discomfort #20 CAPSULES 01/17/22 [Rx Last Taken Unknown] Allergy/AdvReac Type Severity Reaction Status Date / Time hydrocodone bitartrate AdvReac Other Verified 01/17/22 15:54 [From Vicodin] oxycodone HCl [From Percocet] AdvReac Other Verified 01/17/22 15:54 tramadol AdvReac Other Verified 01/17/22 15:54 NARCOTICS Allergy Other Uncoded 01/17/22 15:54 Family History Brother Breast cancer Kidney disease Heart disease Father Heart disease Surgical History (Updated 01/08/22 @ 17:28 by Pilar Miranda) history laminectomy with decompression History of cholecystectomy History of laparoscopic cholecystectomy History of left mastectomy History of right mastectomy (~11/2018) history partial right oophorectomy Status post left partial knee replacement Social History Smoking Status: Former smoker alcohol intake: never substance use type: does not use ROS ROS ED Constitutional Constitutional ED: Reports malaise and weakness; Denies chills or fever(s) Eyes Eyes: Denies change in vision or diplopia ENT ENT ED: Denies rhinorrhea or sore throat Cardiovascular Cardiovascular: Denies chest pain or palpitations Respiratory/Chest Respiratory/Chest: Denies cough or dyspnea Gastrointestinal Gastrointestinal: Reports abdominal pain, diarrhea and other Details: Diarrhea is black since I have been taking Pepto ; Denies nausea or vomiting Genitourinary Genitourinary ED: Denies dysuria or hematuria Musculoskeletal Musculoskeletal: Denies back pain or neck pain Integumentary Denies abscess or rash Neurologic Neurologic: Reports weakness; Denies headache(s) or paresthesias Psychiatric Psychiatric: Denies anxiety or suicidal thoughts EXAM Physical Exam Const Vital Signs: 01/17/22 15:55 01/17/22 20:00 Temperature 97.1 F L 97.1 F L Temperature Source Temporal Oral Pulse Rate 57 L 58 L Respiratory Rate 18 18 Blood Pressure 134/70 H 129/60 H Blood Pressure Mean 91 83 Pulse Ox 97 96 Oxygen Delivery Method Room Air Room Air Positive well nourished and well developed General Appearance ED: well developed and NAD HEENT Reports moist mucous membranes normocephalic and atraumatic Eyes PERRL and EOMs intact bilaterally Neck full ROM and supple Resp normal respiratory effort and clear to auscultation bilaterally Cardio regular rate, regular rhythm and no murmurs GI non-tender and non-distended Auscultation: hyperactive bowel sounds Palpation: soft Back/Spine no CVA tenderness General Back: other FROM Extremity normal to inspection General Extremety ED: Negative for edema, pulses abnormal or tenderness General Extremity: Negative for edema or pulses abnormal Neuro oriented x3, CN's II-XII intact bilaterally and no sensory deficits noted Neuro Narrative: Able to move all 4 extremities Sensorium / Orientation: awake and alert Motor Exam: general weakness Skin no rashes or lesions noted and no wounds MDM MDM MDM Narrative Medical decision making narrative: Work-up is unremarkable, her alkaline phosphatase is slightly elevated this is nonspecific, she does not have an obstructive pattern with her liver enzymes which are otherwise only remarkable for a low albumin at 2.9. She is not edematous. Her urine shows positive nitrite but she does not have significant pyuria, and I would not put her on antibiotics based on this urine and lack of urinary symptoms, so I sent her for culture. Her white blood count is only 6.2, arguing against bacterial infection causing enteritis or colitis. She has had no diarrhea while she is here to send a specimen. However, she did was sent home with collection kit from her PCP, however this was late and she has had no diarrhea since she has received that. It appears that she is on cephalexin daily to prevent urinary tract infections, so certainly she is at risk for C. difficile but I do not think that is what this is. Regardless if she continues to have any more diarrhea I recommend collecting if she is able and taking it to the lab as directed by her doctor, here I gave her dicyclomine which did help her cramping discomfort, and I do not think she needs a CT her abdomen is very benign, I am comfortable letting her go home with a prescription for dicyclomine to use as needed, she is tolerating fluids and comfortable with that plan as well. Lab Data Attestation: I reviewed the patient's lab results. Labs: Laboratory Results - last 24 hr 01/17/22 01/17/22 01/17/22 18:40 18:40 18:55 WBC 6.2 RBC 4.57 Hgb 14.0 Hct 44.5 MCV 97.4 MCH 30.6 MCHC 31.5 L RDW Std Deviation 50.7 H RDW Coeff of Sravan 14.2 Plt Count 304 MPV 9.5 Immature Gran % (Auto) 0.500 Neut % (Auto) 59.2 Lymph % (Auto) 30.6 [place] % (Auto) 7.7 Eos % (Auto) 1.5 Baso % (Auto) 0.5 Absolute Neuts (auto) 3.7 Absolute Lymphs (auto) 1.90 Nucleated RBC % 0.3 Sodium 140 Potassium 4.4 Chloride 106 Carbon Dioxide 31.0 Anion Gap 3 L BUN 10 Creatinine 0.71 Estim Creat Clear Calc 35.52 Est GFR (MDRD) Af Amer 101 Est GFR (MDRD) Non-Af 84 BUN/Creatinine Ratio 14.1 Glucose 130 H Calcium 9.8 Total Bilirubin 0.50 AST 28 ALT 37 Alkaline Phosphatase 146 H Total Protein 6.8 Albumin 2.9 L Globulin 3.9 Albumin/Globulin Ratio 0.7 L Urine Color Yellow Urine Clarity Clear Urine pH 6.0 Ur Specific [place] 1.010 Urine Protein Negative Urine Glucose (UA) Normal Urine Ketones Negative Urine Occult Blood Negative Urine Nitrite Positive H Urine Bilirubin Negative Urine Urobilinogen Normal Ur Leukocyte Esterase 100 H Urine RBC 0 SEEN Urine WBC 0-5 SEEN Ur Squamous Epith Cells 0-5 SEEN Urine Bacteria 4+ Urine Mucus 0 SEEN Discharge Plan Triage Chief Complaint: Diarrhea ED Provider: Keon Aponte Dx/Rx/DC Orders Clinical Impression: Acute diarrhea, Abdominal pain, lower, History of IBS Instructions: ED Diarrhea, Unknown Cause Prescriptions: New dicyclomine 10 mg capsule 10 mg PO Q6H PRN PRN (Reason: abdominal discomfort) Qty: 20 0RF No Action atenolol 100 MG tablet 100 mg PO DAILY aspirin 81 MG tablet 81 mg PO QHS montelukast 10 MG tablet 10 mg PO QHS levothyroxine 112 MCG tablet 224 mcg PO SUSA Label Comments: thursday levothyroxine 112 MCG tablet 112 mcg PO MOTUWETHFR gabapentin 300 MG capsule 300 mg PO QHS metformin 500 MG tablet 500 mg PO DAILY ascorbic acid (vitamin C) 1,000 MG tablet 1,000 mg PO QHS methenamine hippurate 1 GM tablet 1 gm PO QHS duloxetine 30 MG capsule 30 mg PO BID cranberry fruit concentrate 250 MG tablet,chewable 2 tab PO DAILY vitamin E (dl, acetate) 400 UNITS capsule 400 units PO DAILY clonidine HCl 0.1 MG tablet 0.1 mg PO DAILY amlodipine 2.5 MG tablet 2.5 mg PO DAILY fexofenadine 180 MG tablet 180 mg PO QHS isosorbide dinitrate 5 MG tablet 10 mg PO TIDCM cholecalciferol (vitamin D3) 2,000 UNIT tablet,chewable 4,000 unit PO DAILY loperamide 2 MG capsule 2 mg PO TID PRN (Reason: diarrhea') bismuth subsalicylate 262 MG tablet 262 mg PO PRN PRN (Reason: Diarrhea) omeprazole 40 mg Capsule,Delayed Release(Dr/Ec) 40 mg PO BID budesonide-formoterol [Symbicort] 80-4.5 mcg/actuation Hfa Aerosol Inhaler 2 puff INHALATION BID cefdinir 300 mg capsule 300 mg PO BID Qty: 10 0RF Primary Care Provider: Carin Mckeon Referrals: Carin Mckeon, [Primary Care Provider] - 3-5 Days if not improving Activity Restrictions/Additional Instructions: If you do have more diarrhea, collect it with your specimen collection kit and take it to the lab as directed by your doctor. Make sure you are staying hydrated if you continue to have more diarrhea. If any new or concerning symptoms, you are welcome to return to the ER for reevaluation. Disposition Disposition: Home, Self Care
[2022-01-17] MEDS: Dicyclomine 10 MG Capsule PO (18:24)
[2022-01-17 18:56] LABS: Absolute Neutrophil Count 3.7 X10^3/uL (2.0-7.7); Basophil# 0.03 X10^3/uL; Basophil% 0.5 % (0-1); Eosinophil# 0.09 X10^3/uL; Eosinophils% 1.5 % (0-5); Hematocrit 44.5 % (37-47); Lymphocyte % 30.6 % (19-41); Mean Corp Hgb Conc 31.5 g/dL (32-36); Mean Corpuscular Hgb 30.6 pg (27.0-32.0); Mean Corpuscular Volume 97.4 fL (81-99); Mean Platelet Vol. 9.5 fl (6.2-12.0); Monocyte# 0.48 X10^3/uL; Monocyte% 7.7 % (0-10); NRBC Flagged by Analyzer 0.3 % (0-5); Neutrophil # 3.67 X10^3/uL (2.7-7.7); Neutrophil % 59.2 % (47-70); Platelet Count 304 K/mm3 (150-450); RBC Distribution Width CV 14.2 % (11.6-14.6); RBC Distribution Width SD 50.7 fl (35.1-43.9); Red Blood Count 4.57 M/mm3 (4.2-5.4); White Blood Count 6.2 K/mm3 (4.4-11.0)
[2022-01-17 19:10] LABS: Mucous, Urine 0 SEEN /hpf (<or=2+); Red Blood Cells-Urine 0 SEEN /hpf (0-5)
[2022-01-17 19:32] LABS: Albumin, Serum 2.9 g/dL (3.2-5.0); BUN 10 mg/dL (7-18); BUN/Creat Ratio 14.1 RATIO (10-20); Creatinine, Serum 0.71 mg/dL (0.55-1.02); EST Glomerular Filtration Rate 84 mL/min (>60); Est Glom Filt Rate - Afr Amer 101 mL/min (>60); Estimated Creatinine Clearance 35.52 ml/min; Glucose 130 mg/dL (74-106); Protein, Total 6.8 g/dL (6.4-8.2)
[2022-01-17 19:33] LABS: ALB/GLOB Ratio 0.7 RATIO (0.9-2.4); AST(SGOT) 28 U/L (15-37); Alanine Aminotransfer ALT/SGPT 37 U/L (13-56); Alkaline Phosphatase 146 U/L (45-117); Anion Gap 3 (5-15); Calcium,Total 9.8 mg/dL (8.5-10.1); Chloride 106 mmol/L (98-107); Globulin 3.9 g/dL (2.2-4.2); Potassium 4.4 mmol/L (3.5-5.1); Sodium Level 140 mmol/L (136-145)
[2022-01-17 19:35] LABS: Color, Urine Yellow (Yellow); Glucose, Dipstick Normal (Normal); Ketone-Dipstick Negative (Negative); Leukocyte Esterase-Dipstick 100 /ul (Negative); Nitrite-Dipstick Positive (Negative); Occult Blood-Urine Negative /ul (Negative); Protein-Dipstick Negative (Negative); Urine Bilirubin Dipstick Negative (Negative); Urine Clarity Clear (Clear); Urine Urobilinogen Normal (Normal)
[2022-01-17 19:46] LABS: Squamous Epithelial Cells - UA 0-5 SEEN /hpf (5-10); White Blood Cells 0-5 SEEN /hpf (0-5)
[2022-01-17 19:47] LABS: Bacteria 4+ /hpf (None Seen)
[2022-01-17 20:00] VITALS: BP 129/60; PULSE 58; RESP 18; TEMP 36.2; O2SAT 96
== END 2022-01-17 21:45 | disposition home or self-care (01) ==
PROVIDERS: Emergency Provider Emergency Medicine; PCP Internal Medicine; Visit Provider Emergency Medicine
DX: R19.7 Diarrhea, unspecified (principal); R10.30 Lower abdominal pain, unspecified; Z87.891 Personal history of nicotine dependence
CPT/HCPCS: 80053; 81001; 85025; 87077; 87086; 87088; 87186; 99285; A4216

== ENCOUNTER 2022-02-02 13:11 | Inpatient (IN) | payer MEDICARE, OTHER, SELFPAY ==
[2018-12-14 15:07] VITALS: BMI 33.4
[2022-02-02] VITALS (7 sets, daily range): BP systolic 108–143; BP diastolic 69–92; PULSE 72–89; RESP 14–20; TEMP 36.8–37.3; O2SAT 93–94; BMI 29.3; BMI 34.9
--- NOTE | 2022-02-02 13:24 | EKG12_ITS ---
Test Reason : Blood Pressure : / mmHG Vent. Rate : 072 BPM Atrial Rate : 072 BPM P-R Int : 166 ms QRS Dur : 128 ms QT Int : 396 ms P-R-T Axes : 088 -35 119 degrees QTc Int : 433 ms Normal sinus rhythm Left axis deviation Left bundle branch block Abnormal ECG Confirmed by MYLENE PEREZ, RAJ ([id number]), index editor ROLANDA BELLAMY ([id number]) on 02/05/2022 8:55:33 AM Referred By: ROXIE/JOSELYN Confirmed By:RAJ CHAKRABORTY MD
--- NOTE | 2022-02-02 13:45 | EDS_ITS ---
HPI History of Present Illness Chief Complaint: Confusion Informant: patient, family and EMS Onset/Context/Timing Onset: Yesterday Narrative Narrative: Patient presents via EMS secondary to confusion. Daughter is at bedside and provides much of the history. Patient had some mild confusion yesterday but much more pronounced today. Daughter states patient has similar presentation with prior UTIs. She reported had a temperature of 102 at home today. She normally lives home with her . She will get around with a walker. She is currently unable to ambulate given weakness and confusion. [facility] Medical History abnormal ultrasound right breast Acute bronchitis due to Haemophilus influenzae Anxiety and depression Asthma Breast cancer, right (~11/2018) Cancer Chronic obstructive pulmonary disease (COPD) Diabetes Diabetes mellitus, type II Difficulty swallowing Elevated liver enzymes GERD (gastroesophageal reflux disease) HLD (hyperlipidemia) HTN (hypertension) Hx: UTI (urinary tract infection) Hypothyroidism Irritable bowel Kidney disease Obesity (BMI 30-39.9) Home Medications aspirin 81 mg tablet,delayed release 81 mg PO QHS HRT 07/10/15 [History Last Taken 10/02/21] atenolol 100 mg tablet 100 mg PO DAILY bp 07/10/15 [History Last Taken 10/02/21] levothyroxine 112 mcg tablet 112 mcg PO MOTUWETHFR THYROID 07/10/15 [History Last Taken 10/02/21] levothyroxine 112 mcg tablet 224 mcg PO SUSA THYROID 07/10/15 [History Last Taken 09/29/21] montelukast 10 mg tablet 10 mg PO QHS ALLERGY 07/10/15 [History Last Taken 10/02/21] gabapentin 300 mg capsule 300 mg PO QHS NERVE PAIN 02/16/17 [History Last Taken 10/02/21] metformin 500 mg tablet,extended release 24 hr 500 mg PO DAILY diabetes 06/02/17 [History Last Taken 07/29/19] ascorbic acid (vitamin C) 1,000 mg tablet 1,000 mg PO QHS SUPPLEMENT 07/08/18 [H istory Last Taken 10/02/21] cranberry fruit concentrate 250 mg chewable tablet 2 tab PO DAILY UTI 07/08/18 [History Last Taken 10/02/21] duloxetine 30 mg capsule,delayed release 30 mg PO BID DEPRESSION 07/08/18 [History Last Taken 07/29/19] methenamine hippurate 1 gram tablet 1 gm PO QHS UTI 07/08/18 [History Last Taken 10/02/21] vitamin E (dl, acetate) 180 mg (400 unit) capsule 400 units PO DAILY SUPPLEMENT 11/02/18 [History Last Taken 10/02/21] amlodipine 2.5 mg tablet 2.5 mg PO DAILY BP 07/29/19 [History Last Taken 10/02/21] cholecalciferol (vitamin D3) 50 mcg (2,000 unit) chewable tablet 4,000 unit PO DAILY SUPPLEMENT 07/29/19 [History Last Taken 10/02/21] clonidine HCl 0.1 mg tablet 0.1 mg PO DAILY BP 07/29/19 [History Last Taken 10/02/21] fexofenadine 180 mg tablet 180 mg PO QHS ALLERGIES 07/29/19 [History Last Taken 10/02/21] isosorbide dinitrate 5 mg tablet 10 mg PO TIDCM THROAT SPASMS 07/29/19 [History Last Taken 10/02/21] bismuth subsalicylate 262 mg tablet 262 mg PO PRN PRN Diarrhea 08/08/20 [History Last Taken Unknown] loperamide 2 mg capsule 2 mg PO TID PRN diarrhea' 08/08/20 [History Last Taken Unknown] budesonide-formoterol HFA 80 mcg-4.5 mcg/actuation aerosol inhaler (Symbicort) 2 puff inhalation BID breathing 10/03/21 [History Last Taken 10/02/21] omeprazole 40 mg capsule,delayed release 40 mg PO BID gerd 10/03/21 [History Last Taken 10/02/21] cefdinir 300 mg capsule 300 mg PO BID #10 caps 10/05/21 [Rx Last Taken Unknown] dicyclomine 10 mg capsule 10 mg PO Q6H PRN PRN abdominal discomfort #20 CAPSULES 01/17/22 [Rx Last Taken Unknown] Allergy/AdvReac Type Severity Reaction Status Date / Time hydrocodone bitartrate AdvReac Other Verified 02/02/22 13:19 [From Vicodin] oxycodone HCl [From Percocet] AdvReac Other Verified 02/02/22 13:19 tramadol AdvReac Other Verified 02/02/22 13:19 Family History Brother Breast cancer Kidney disease Heart disease Father Heart disease Surgical History history laminectomy with decompression History of cholecystectomy History of laparoscopic cholecystectomy History of left mastectomy History of right mastectomy (~11/2018) history partial right oophorectomy Status post left partial knee replacement Social History Smoking Status: Former smoker alcohol intake: never substance use type: does not use ROS ROS ED Constitutional Constitutional ED: Reports fever(s); Denies chills Eyes Eyes: Denies change in vision or discharge from eye(s) ENT ENT ED: Denies discharge from eye(s), rhinorrhea or sore throat Cardiovascular Cardiovascular: Denies chest pain or palpitations Respiratory/Chest Respiratory/Chest: Reports cough and dyspnea Gastrointestinal Gastrointestinal: Denies abdominal pain, diarrhea, nausea or vomiting Genitourinary Genitourinary ED: Denies difficulty urinating or dysuria Musculoskeletal Musculoskeletal: Reports myalgias; Denies back pain or extremity pain Integumentary Denies Abrasions or rash Neurologic Neurologic: Reports headache(s) and weakness Allergic/Immunologic Allergic/Immunologic ED: Denies lip swelling or urticaria EXAM Physical Exam Const Vital Signs: 02/02/22 13:26 02/02/22 13:43 02/02/22 15:18 Temperature 98.5 F 98.5 F Temperature Source Oral Temporal Pulse Rate 87 73 72 Respiratory Rate 20 H 20 H 18 Blood Pressure 143/92 H 138/84 H 124/78 H Blood Pressure Mean 109 102 93 Pulse Ox 93 94 94 Oxygen Delivery Method Room Air Room Air Room Air Positive well nourished and well developed General Appearance ED: well developed HEENT Reports normocephalic and head/scalp atraumatic Eyes PERRL and EOMs intact bilaterally Neck supple Chest Wall inspection of chest normal and palpation of chest normal Resp normal respiratory effort and clear to auscultation bilaterally Cardio regular rate and regular rhythm GI normal to inspection, nondistended, normoactive bowel sounds Palpation: soft Extremity normal to inspection Neuro no sensory deficits noted Neuro Narrative: No focal neurologic deficits. Sensorium / Orientation: alert Motor Exam: strength 5/5 throughout Psych Mood & Affect: anxious Skin no rashes or lesions noted MDM MDM MDM Narrative Medical decision making narrative: Lab work and urinalysis obtained. Blood and urine culture sent given patient's fever at home. Lab Data Attestation: I reviewed the patient's lab results. Labs: Laboratory Results - last 24 hr 02/02/22 02/02/22 02/02/22 13:04 13:04 14:05 WBC 7.0 RBC 4.62 Hgb 14.2 Hct 44.7 MCV 96.8 MCH 30.7 MCHC 31.8 L RDW Std Deviation 51.1 H RDW Coeff of Sravan 14.3 Plt Count 286 MPV 10.3 Immature Gran % (Auto) 0.900 Neut % (Auto) 79.2 H Lymph % (Auto) 11.4 L [place] % (Auto) 7.2 Eos % (Auto) 1.0 Baso % (Auto) 0.3 Absolute Neuts (auto) 5.5 Absolute Lymphs (auto) 0.80 L Nucleated RBC % 0 Sodium Cancelled Potassium Cancelled Chloride Cancelled Carbon Dioxide Cancelled Anion Gap Cancelled BUN Cancelled Creatinine Cancelled Estim Creat Clear Calc Cancelled Est GFR (MDRD) Af Amer Cancelled Est GFR (MDRD) Non-Af Cancelled BUN/Creatinine Ratio Cancelled Glucose Cancelled Lactic Acid Cancelled Calcium Cancelled Urine Color Urine Clarity Urine pH Ur Specific [place] Urine Protein Urine Glucose (UA) Urine Ketones Urine Occult Blood Urine Nitrite Urine Bilirubin Urine Urobilinogen Ur Leukocyte Esterase Urine RBC Urine WBC Ur Squamous Epith Cells Urine Bacteria Urine Mucus 02/02/22 02/02/22 14:14 15:01 WBC RBC Hgb Hct MCV MCH MCHC RDW Std Deviation RDW Coeff of Sravan Plt Count MPV Immature Gran % (Auto) Neut % (Auto) Lymph % (Auto) [place] % (Auto) Eos % (Auto) Baso % (Auto) Absolute Neuts (auto) Absolute Lymphs (auto) Nucleated RBC % Sodium 139 Potassium 3.8 Chloride 105 Carbon Dioxide 27.0 Anion Gap 7 BUN 7 Creatinine 0.74 Estim Creat Clear Calc 40.00 Est GFR (MDRD) Af Amer 96 Est GFR (MDRD) Non-Af 79 BUN/Creatinine Ratio 9.4 L Glucose 126 H Lactic Acid Calcium 9.6 Urine Color Yellow Urine Clarity Clear Urine pH 6.0 Ur Specific [place] 1.015 Urine Protein 15 H Urine Glucose (UA) Normal Urine Ketones Negative Urine Occult Blood Negative Urine Nitrite Negative Urine Bilirubin Negative Urine Urobilinogen Normal Ur Leukocyte Esterase Negative Urine RBC 0 SEEN Urine WBC 0 SEEN Ur Squamous Epith Cells 0 SEEN Urine Bacteria 0 SEEN Urine Mucus 0 SEEN Radiography Chest X-Ray - ED: 1 View, Read by ED Physician, Chronic Changes and No Infiltrates Diagnostic Testing: Clinical Impression(s) from Imaging Studies Chest X-Ray 02/02/22 14:25 IMPRESSION: There are no acute findings. Electronically Signed: Khadar Burnett MD at 14:40 EDT , Brain CT 02/02/22 14:31 IMPRESSION: There are no acute intracranial findings. Electronically Signed: Khadar Burnett MD at 15:21 EDT , EKG Initial EKG: Attestation: I personally reviewed and interpreted this EKG as follows: Interpretation: Sinus Rhythm (Sinus at 72 with left bundle branch block. No acute ischemia.) Treatment and Re-Evaluation Narrative: CBC and chemistry studies unremarkable. Urinalysis reveals no acute infection. Portable chest x-ray per my interpretation reveals no focal infiltrate. Radiology interpretation is reviewed. With patient not having sign of urinary infection she is sent for head CT. This reveals no acute findings. COVID and influenza swab is sent. She does return positive for COVID. At this time patient does have encephalopathy secondary to infection. She is elderly and lives at home with her . She is having trouble caring for herself and getting around at home. She will require observation and further treatment to ensure she is safe at home. I will speak with the hospitalist. Discharge Plan Triage Chief Complaint: Confusion ED Provider: Edyta Yoder Dx/Rx/DC Orders Clinical Impression: COVID-19, Encephalopathy Prescriptions: No Action atenolol 100 MG tablet 100 mg PO DAILY aspirin 81 MG tablet 81 mg PO QHS montelukast 10 MG tablet 10 mg PO QHS levothyroxine 112 MCG tablet 224 mcg PO SUSA Label Comments: thursday levothyroxine 112 MCG tablet 112 mcg PO MOTUWETHFR gabapentin 300 MG capsule 300 mg PO QHS metformin 500 MG tablet 500 mg PO DAILY ascorbic acid (vitamin C) 1,000 MG tablet 1,000 mg PO QHS methenamine hippurate 1 GM tablet 1 gm PO QHS duloxetine 30 MG capsule 30 mg PO BID cranberry fruit concentrate 250 MG tablet,chewable 2 tab PO DAILY vitamin E (dl, acetate) 400 UNITS capsule 400 units PO DAILY clonidine HCl 0.1 MG tablet 0.1 mg PO DAILY amlodipine 2.5 MG tablet 2.5 mg PO DAILY fexofenadine 180 MG tablet 180 mg PO QHS isosorbide dinitrate 5 MG tablet 10 mg PO TIDCM cholecalciferol (vitamin D3) 2,000 UNIT tablet,chewable 4,000 unit PO DAILY loperamide 2 MG capsule 2 mg PO TID PRN (Reason: diarrhea') bismuth subsalicylate 262 MG tablet 262 mg PO PRN PRN (Reason: Diarrhea) omeprazole 40 mg Capsule,Delayed Release(Dr/Ec) 40 mg PO BID budesonide-formoterol [Symbicort] 80-4.5 mcg/actuation Hfa Aerosol Inhaler 2 puff INHALATION BID cefdinir 300 mg capsule 300 mg PO BID Qty: 10 0RF dicyclomine 10 mg capsule 10 mg PO Q6H PRN PRN (Reason: abdominal discomfort) Qty: 20 0RF Primary Care Provider: Carin Mckeon Referrals: Carin Mckeon DO [Primary Care Provider] - Disposition Disposition: Acute Care Hospital [facility]
[2022-02-02 14:24] LABS: Bacteria 0 SEEN /hpf (None Seen); Color, Urine Yellow (Yellow); Glucose, Dipstick Normal (Normal); Ketone-Dipstick Negative (Negative); Leukocyte Esterase-Dipstick Negative /ul (Negative); Mucous, Urine 0 SEEN /hpf (<or=2+); Nitrite-Dipstick Negative (Negative); Occult Blood-Urine Negative /ul (Negative); Protein-Dipstick 15 mg/dl (Negative); Red Blood Cells-Urine 0 SEEN /hpf (0-5); Specific Gravity, Urine 1.015 (1.002-1.030); Squamous Epithelial Cells - UA 0 SEEN /hpf (5-10); Urine Bilirubin Dipstick Negative (Negative); Urine Clarity Clear (Clear); Urine Urobilinogen Normal (Normal); White Blood Cells 0 SEEN /hpf (0-5)
--- NOTE | 2022-02-02 14:25 | RAD_ITS ---
STUDY: X-RAY CHEST REASON FOR EXAM: Female, 86 years old. cough TECHNIQUE: XR Chest 1 View COMPARISON: 8.31. FINDINGS: There are multiple metallic clips in the left axilla. This is consistent for a prior axillary dissection. There are mastectomy changes noted. Metallic leads in the spinal canal may suggest spinal stimulator leads. Normal size heart. Normal mediastinum and farrah. Normal visualized pulmonary arteries. There is atherosclerotic calcification of the aortic arch with tortuosity. There are diffuse degenerative changes of the visualized thoracic spine. There is degenerative osteoarthritis of the bilateral shoulders. There is no demonstrated abnormality of the visualized soft tissue structures of the upper abdomen. RAD/Chest 1 View (Portable) IMPRESSION: There are no acute findings. Electronically Signed: Khadar Burnett MD at 14:40 EDT ,
[2022-02-02 14:26] LABS: Absolute Neutrophil Count 5.5 X10^3/uL (2.0-7.7); Basophil# 0.02 X10^3/uL; Basophil% 0.3 % (0-1); Eosinophil# 0.07 X10^3/uL; Hematocrit 44.7 % (37-47); Hemoglobin 14.2 g/dL (12.0-15.0); Lymphocyte % 11.4 % (19-41); Mean Corp Hgb Conc 31.8 g/dL (32-36); Mean Corpuscular Hgb 30.7 pg (27.0-32.0); Mean Corpuscular Volume 96.8 fL (81-99); Mean Platelet Vol. 10.3 fl (6.2-12.0); Monocyte% 7.2 % (0-10); NRBC Flagged by Analyzer 0 % (0-5); Neutrophil # 5.54 X10^3/uL (2.7-7.7); Neutrophil % 79.2 % (47-70); Platelet Count 286 K/mm3 (150-450); RBC Distribution Width CV 14.3 % (11.6-14.6); RBC Distribution Width SD 51.1 fl (35.1-43.9); Red Blood Count 4.62 M/mm3 (4.2-5.4)
--- NOTE | 2022-02-02 14:31 | CT_ITS ---
STUDY: CT BRAIN WITHOUT CONTRAST REASON FOR EXAM: Female, 86 years old. confusion TECHNIQUE: Transaxial CT imaging of the brain was performed without administration of intravenous contrast material. Individualized dose optimization techniques were used for this CT. COMPARISON: 11.09.20 FINDINGS: Normal calvarium. Normal soft tissues. There is mild cerebral atrophy with widening of the extra-axial spaces and ventricular dilatation. There are areas of decreased attenuation within the white matter tracts of the supratentorial brain, consistent with microvascular disease changes. Normal basal ganglia and thalami. Normal brainstem. Normal cerebellum. There is no intracranial hemorrhage. There are no findings of an acute ischemic infarction. There are calcifications noted in the distal vertebral arteries. There are calcifications noted in the cavernous carotid arteries. This is consistent for atherosclerotic disease. Normal visualized paranasal sinuses. ASPECTS 10 CT/Brain/Head without Contrast IMPRESSION: There are no acute intracranial findings. Electronically Signed: Khadar Burnett MD at 15:21 EDT ,
[2022-02-02] MEDS: 0.9% Normal Saline 1,000 ML 150 ML IV (15:19)
[2022-02-02 15:42] LABS: Anion Gap 7 (5-15); BUN 7 mg/dL (7-18); BUN/Creat Ratio 9.4 RATIO (10-20); Calcium,Total 9.6 mg/dL (8.5-10.1); Chloride 105 mmol/L (98-107); Creatinine, Serum 0.74 mg/dL (0.55-1.02); EST Glomerular Filtration Rate 79 mL/min (>60); Est Glom Filt Rate - Afr Amer 96 mL/min (>60); Glucose 126 mg/dL (74-106); Potassium 3.8 mmol/L (3.5-5.1); Sodium Level 139 mmol/L (136-145)
[2022-02-02 16:01] LABS: Lactic Acid 2.5 mmol/L (0.4-1.9)
--- NOTE | 2022-02-02 16:35 | HP.PCM.HOS_ITS ---
HPI - General General Date of Service: 02/02/22 Chief Complaint: Confusion HPI Narrative KARRIE DAVID, is a 86 F who presents with 1 day history of confusion. Patient has been sick and rundown since the but today was noted to be confused with hallucinations. Patient is seeing Thursday things including duck stealing a cookie. Patient's daughter, who is present and provides much of the history, states that she gets this way when she gets urinary tract infections but this time is much more severe. Patient presented to the emergency room and underwent a work-up that was significant for a lactic acid elevation of 2.5 as well as a positive COVID-19 test. Patient has been vaccinated and boosted x2 for COVID- 19. Patient did receive IV fluids in the emergency room. Patient had a head CT that showed no acute process. Chest x-ray that was unremarkable [facility] Medical History abnormal ultrasound right breast Acute bronchitis due to Haemophilus influenzae Anxiety and depression Asthma Breast cancer, right (~11/2018) Cancer Chronic obstructive pulmonary disease (COPD) Diabetes Diabetes mellitus, type II Difficulty swallowing Elevated liver enzymes GERD (gastroesophageal reflux disease) HLD (hyperlipidemia) HTN (hypertension) Hx: UTI (urinary tract infection) Hypothyroidism Irritable bowel Kidney disease Obesity (BMI 30-39.9) Home Medications aspirin 81 mg tablet,delayed release 81 mg PO QHS HRT 07/10/15 [History Last Taken 10/02/21] atenolol 100 mg tablet 100 mg PO DAILY bp 07/10/15 [History Last Taken 10/02/21] levothyroxine 112 mcg tablet 112 mcg PO MOTUWETHFR THYROID 07/10/15 [History Last Taken 10/02/21] levothyroxine 112 mcg tablet 224 mcg PO SUSA THYROID 07/10/15 [History Last T aken 09/29/21] montelukast 10 mg tablet 10 mg PO QHS ALLERGY 07/10/15 [History Last Taken 10/02/21] gabapentin 300 mg capsule 300 mg PO QHS NERVE PAIN 02/16/17 [History Last Taken 10/02/21] metformin 500 mg tablet,extended release 24 hr 500 mg PO DAILY diabetes 06/02/17 [History Last Taken 07/29/19] ascorbic acid (vitamin C) 1,000 mg tablet 1,000 mg PO QHS SUPPLEMENT 07/08/18 [History Last Taken 10/02/21] cranberry fruit concentrate 250 mg chewable tablet 2 tab PO DAILY UTI 07/08/18 [History Last Taken 10/02/21] duloxetine 30 mg capsule,delayed release 30 mg PO BID DEPRESSION 07/08/18 [History Last Taken 07/29/19] methenamine hippurate 1 gram tablet 1 gm PO QHS UTI 07/08/18 [History Last Taken 10/02/21] vitamin E (dl, acetate) 180 mg (400 unit) capsule 400 units PO DAILY SUPPLEMENT 11/02/18 [History Last Taken 10/02/21] amlodipine 2.5 mg tablet 2.5 mg PO DAILY BP 07/29/19 [History Last Taken 10/02/21] cholecalciferol (vitamin D3) 50 mcg (2,000 unit) chewable tablet 4,000 unit PO DAILY SUPPLEMENT 07/29/19 [History Last Taken 10/02/21] clonidine HCl 0.1 mg tablet 0.1 mg PO DAILY BP 07/29/19 [History Last Taken 10/02/21] fexofenadine 180 mg tablet 180 mg PO QHS ALLERGIES 07/29/19 [History Last Taken 10/02/21] isosorbide dinitrate 5 mg tablet 10 mg PO TIDCM THROAT SPASMS 07/29/19 [History Last Taken 10/02/21] bismuth subsalicylate 262 mg tablet 262 mg PO PRN PRN Diarrhea 08/08/20 [History Last Taken Unknown] loperamide 2 mg capsule 2 mg PO TID PRN diarrhea' 08/08/20 [History Last Taken Unknown] budesonide-formoterol HFA 80 mcg-4.5 mcg/actuation aerosol inhaler (Symbicort) 2 puff inhalation BID breathing 10/03/21 [History Last Taken 10/02/21] omeprazole 40 mg capsule,delayed release 40 mg PO BID gerd 10/03/21 [History Last Taken 10/02/21] cefdinir 300 mg capsule 300 mg PO BID #10 caps 10/05/21 [Rx Last Taken Unknown] dicyclomine 10 mg capsule 10 mg PO Q6H PRN PRN abdominal discomfort #20 CAPSULES 01/17/22 [Rx Last Taken Unknown] Allergy/AdvReac Type Severity Reaction Status Date / Time hydrocodone bitartrate AdvReac Other Verified 02/02/22 13:19 [From Vicodin] oxycodone HCl [From Percocet] AdvReac Other Verified 02/02/22 13:19 tramadol AdvReac Other Verified 02/02/22 13:19 Family History Brother Breast cancer Kidney disease Heart disease Father Heart disease Surgical History history laminectomy with decompression History of cholecystectomy History of laparoscopic cholecystectomy History of left mastectomy History of right mastectomy (~11/2018) history partial right oophorectomy Status post left partial knee replacement Social History Smoking Status: Former smoker alcohol intake: never substance use type: does not use ROS ROS Narrative Limited due to confusion but the patient does complain of sore throat. All rev iew of systems were negative except as mentioned above in the history of present illness and the other review of systems. Vital Signs Vital Signs Vital Signs: 02/02/22 13:26 02/02/22 13:43 02/02/22 15:18 Temperature 36.9 C 36.9 C Temperature Source Oral Temporal Pulse Rate 87 73 72 Respiratory Rate 20 H 20 H 18 Blood Pressure 143/92 H 138/84 H 124/78 H Blood Pressure Mean 109 102 93 Pulse Ox 93 94 94 Oxygen Delivery Method Room Air Room Air Room Air Weight Weight: 85 kg Body Mass Index (BMI) 29.3 Physical Exam Const Constitutional Narrative: Awake. Oriented to self and place. Year is 2033. Patient was no respiratory stress but her pulse ox was noted to drop down to around 90 to 91% on room air. HEENT normocephalic HEENT Narrative: Mucous membranes dry Resp normal respiratory effort and no retractions Auscultation: wheezes expiratory wheezes and throughout Cardio regular rate, regular rhythm, S1 normal heart sound and S2 normal heart sound GI normal to inspection, nondistended, normoactive bowel sounds, soft to palpation, non-tender and non-distended Extremity normal to inspection Neuro oriented x3 Psych affect normal Results Lab / Micro Data Result Diagrams: 02/02/22 13:04 02/02/22 15:01 Labs: Laboratory Results - last 24 hr 02/02/22 13:04: WBC 7.0, RBC 4.62, Hgb 14.2, Hct 44.7, MCV 96.8, MCH 30.7, MCHC 31.8 L, RDW Std Deviation 51.1 H, RDW Coeff of Sravan 14.3, Plt Count 286, MPV 10.3, Immature Gran % (Auto) 0.900, Neut % (Auto) 79.2 H, Lymph % (Auto) 11.4 L, [place] % (Auto) 7.2, Eos % (Auto) 1.0, Baso % (Auto) 0.3, Absolute Neuts (auto) 5.5, Absolute Lymphs (auto) 0.80 L, Nucleated RBC % 0 02/02/22 13:04: Sodium Cancelled, Potassium Cancelled, Chloride Cancelled, Carbon Dioxide Cancelled, Anion Gap Cancelled, BUN Cancelled, Creatinine Cancelled, Estim Creat Clear Calc Cancelled, Est GFR (MDRD) Af Amer Cancelled, Est GFR (MDRD) Non-Af Cancelled, BUN/Creatinine Ratio Cancelled, Glucose Cancelled, Calcium Cancelled 02/02/22 14:05: Lactic Acid Cancelled 02/02/22 14:14: Urine Color Yellow, Urine Clarity Clear, Urine pH 6.0, Ur Specific [place] 1.015, Urine Protein 15 H, Urine Glucose (UA) Normal, Urine Ketones Negative, Urine Occult Blood Negative, Urine Nitrite Negative, Urine Cirilo irubin Negative, Urine Urobilinogen Normal, Ur Leukocyte Esterase Negative, Urine RBC 0 SEEN, Urine WBC 0 SEEN, Ur Squamous Epith Cells 0 SEEN, Urine Bacteria 0 SEEN, Urine Mucus 0 SEEN 02/02/22 15:01: Sodium 139, Potassium 3.8, Chloride 105, Carbon Dioxide 27.0, Anion Gap 7, BUN 7, Creatinine 0.74, Estim Creat Clear Calc 40.00, Est GFR (MDRD) Af Amer 96, Est GFR (MDRD) Non-Af 79, BUN/Creatinine Ratio 9.4 L, Glucose 126 H, Calcium 9.6 02/02/22 15:01: Lactic Acid 2.5 H* Micro: Microbiology 02/02/22 13:04 Nasal Secretion SARS-CoV-2 & FLU Antigen (Rapid) - Final SARS-CoV-2 (COVID 19) EKG Initial EKG: Attestation: I personally reviewed and interpreted this EKG as follows: Prior EKG tracings: available for review EKG Rhythm Intrepretation: Sinus Rhythm (Left bundle branch block. Unchanged from October 04, 2019 to) Radiology Impression Chest X-Ray 02/02/22 14:25 IMPRESSION: There are no acute findings. Electronically Signed: Khadar Burnett MD at 14:40 EDT , Brain CT 02/02/22 14:31 IMPRESSION: There are no acute intracranial findings. Electronically Signed: Khadar Burnett MD at 15:21 EDT , Assessment & Plan Assessment/Plan (1) COVID-19: PLAN: Onset was 01/31 Patient's oxygen dropped down to 90 to 91% Patient has been vaccinated and boosted for COVID-19 Plan: * Dexamethasone for 10 days * Start remdesivir (2) Metabolic encephalopathy: PLAN: Secondary to COVID-19. Patient gets this way frequently. Patient has never been formally diagnosed with dementia nor mild cognitive impairment. Patient does have marked atrophy on her CAT scan but no acute changes. I would be concerned the patient does have some underlying dementia type that may be making her bouts of infection much more exaggerated with hallucinations. Would recommend outpatient geriatric evaluation. Will hold her gabapentin (3) Lactic acidosis: PLAN: Most likely secondary to her being on metformin which will be held. No additional work-up. Patient is not septic PLAN: Plan Chronic conditions * Diabetes mellitus type 2: Sliding scale insulin. Hold metformin * Hypothyroidism: Continue with Synthroid * Hypertension: Stable. Continue with amlodipine, atenolol * History of frequent urinary tract infections: No UTI present. Continue with methenamine VTE prophylaxis: Moderate risk. Enoxaparin. CODE STATUS: Addressed with the patient's daughter. Patient is to be full CODE STATUS. Charges/Coding Visit Charges Inpatient E&M: 24520 Init Hosp L2
[2022-02-02 18:06] LABS: Alkaline Phosphatase 117 U/L (45-117)
[2022-02-02 18:30] LABS: Bedside Glucose 109 mg/dL (74-106)
[2022-02-02] MEDS: dexAMETHasone 4 MG Tablet 6 MG PO (19:03)
[2022-02-02] MEDS: Enoxaparin 40 MG/0.4 ML Syringe SC (19:03)
[2022-02-02 19:05] LABS: Reflex Lactate? Y
[2022-02-02] MEDS: 0.9% Saline Lock 10 ML Syringe IV ×2 (19:18→21:32)
[2022-02-02 21:16] LABS: Lactic Acid 2.2 mmol/L (0.4-1.9)
[2022-02-02 21:22] LABS: Reflex Lactate? N
[2022-02-02] MEDS: Insulin Lispro 100 UNIT/ML INSULN.PEN SC (21:33)
[2022-02-02] MEDS: DULoxetine Hcl 30 MG Capsule PO (21:34)
[2022-02-02] MEDS: Ascorbic Acid 500 MG Tablet 1000 MG PO (21:34)
[2022-02-02] MEDS: Loratadine 10 MG Tablet PO (21:34)
[2022-02-02] MEDS: Methenamine Hippurate 1 GM Tablet PO (21:34)
[2022-02-02] MEDS: Aspirin E.C. 81 MG Tablet PO (21:34)
[2022-02-02] MEDS: Pantoprazole Sodium 40 MG Tablet PO (21:35)
[2022-02-02] MEDS: Montelukast 10 MG Tablet PO (21:35)
[2022-02-02 22:15] LABS: Bedside Glucose 156 mg/dL (74-106)
[2022-02-03] VITALS (16 sets, daily range): BP systolic 131–147; BP diastolic 51–58; PULSE 60–90; RESP 16–22; TEMP 36.1–36.9; O2SAT 85–98
[2022-02-03] MEDS: Insulin Lispro 100 UNIT/ML INSULN.PEN SC ×6 (02:08→22:17)
[2022-02-03] MEDS: 0.9% Saline Lock 10 ML Syringe IV ×2 (02:09→22:22)
[2022-02-03 02:51] LABS: Bedside Glucose 187 mg/dL (74-106)
[2022-02-03 06:11] LABS: Bedside Glucose 166 mg/dL (74-106)
[2022-02-03 06:19] LABS: Absolute Lymphocyte Count 0.61 X10^3/uL (0.83-4.51); Absolute Neutrophil Count 2.7 X10^3/uL (2.0-7.7); Hematocrit 41.4 % (37-47); Hemoglobin 13.8 g/dL (12.0-15.0); Lymphocyte # 0.61 X10^3/ul (0.83-4.51); Lymphocyte % 18.1 % (19-41); Mean Corp Hgb Conc 33.3 g/dL (32-36); Mean Platelet Vol. 9.6 fl (6.2-12.0); Monocyte# 0.07 X10^3/uL; Monocyte% 2.1 % (0-10); NRBC Flagged by Analyzer 0 % (0-5); Neutrophil # 2.66 X10^3/uL (2.7-7.7); Neutrophil % 78.9 % (47-70); Platelet Count 236 K/mm3 (150-450); RBC Distribution Width SD 47.8 fl (35.1-43.9); Red Blood Count 4.45 M/mm3 (4.2-5.4); White Blood Count 3.4 K/mm3 (4.4-11.0)
[2022-02-03 06:46] LABS: ALB/GLOB Ratio 0.7 RATIO (0.9-2.4); AST(SGOT) 25 U/L (15-37); Alanine Aminotransfer ALT/SGPT 26 U/L (13-56); Albumin, Serum 2.7 g/dL (3.2-5.0); Alkaline Phosphatase 102 U/L (45-117); Anion Gap 6 (5-15); BUN 9 mg/dL (7-18); BUN/Creat Ratio 13.5 RATIO (10-20); Calcium,Total 9.2 mg/dL (8.5-10.1); Chloride 106 mmol/L (98-107); Creatinine, Serum 0.67 mg/dL (0.55-1.02); EST Glomerular Filtration Rate 89 mL/min (>60); Est Glom Filt Rate - Afr Amer 108 mL/min (>60); Estimated Creatinine Clearance 35.52 ml/min; Globulin 3.8 g/dL (2.2-4.2); Glucose 175 mg/dL (74-106); Protein, Total 6.5 g/dL (6.4-8.2); Sodium Level 138 mmol/L (136-145)
[2022-02-03] MEDS: Albuterol 2.5 MG/3 ML VIAL.NEB. INHALATION ×2 (07:19→19:20)
[2022-02-03] MEDS: Budesonide Respules 0.5 MG/2 ML AMPUL.NEB. INHALATION ×2 (07:19→19:20)
--- NOTE | 2022-02-03 07:47 | PN.HOSP_ITS ---
Subjective Subjective Seen and examined. Patient is still has cough and pleuritic chest pain on coughing but seems improving. Patient has history of COPD. Patient has mild amnesia/early dementia but she recalls seeing quit about 10 years ago. No fever or chills. On 4 L of oxygen. Objective Data Objective Data Vital Signs: Vital Signs Temp Pulse Resp BP Pulse Ox O2 Del Method O2 Flow Rate 97.1 F L 63 18 136/51 H 98 Nasal Cannula 4 02/03/22 03:49 02/03/22 05:43 02/03/22 03:49 02/03/22 03:49 02/03/22 05:43 02/03/22 05:43 02/03/22 05:43 Oxygen Flow Rate (L/min) 4 Oxygen Delivery Method Nasal Cannula Weight: 203 lb 3.2 oz Body Mass Index (BMI) 34.9 Intake & Output: Intake and Output for Last 24 Hours 02/01/22 02/02/22 02/03/22 23:59 23:59 23:59 Intake Total 752.5 / 952.5 200 / 200 Output Total 0 / 0 Balance 752.5 / 952.5 200 / 200 Lab / Micro Data Result Diagrams: 02/03/22 05:30 02/03/22 05:30 Labs: Laboratory Results - last 24 hr 02/02/22 13:04: WBC 7.0, RBC 4.62, Hgb 14.2, Hct 44.7, MCV 96.8, MCH 30.7, MCHC 31.8 L, RDW Std Deviation 51.1 H, RDW Coeff of Sravan 14.3, Plt Count 286, MPV 10.3, Immature Gran % (Auto) 0.900, Neut % (Auto) 79.2 H, Lymph % (Auto) 11.4 L, [place] % (Auto) 7.2, Eos % (Auto) 1.0, Baso % (Auto) 0.3, Absolute Neuts (auto) 5.5, Absolute Lymphs (auto) 0.80 L, Nucleated RBC % 0 02/02/22 13:04: Sodium Cancelled, Potassium Cancelled, Chloride Cancelled, Carbon Dioxide Cancelled, Anion Gap Cancelled, BUN Cancelled, Creatinine Cancelled, Estim Creat Clear Calc Cancelled, Est GFR (MDRD) Af Amer Cancelled, Est GFR (MDRD) Non-Af Cancelled, BUN/Creatinine Ratio Cancelled, Glucose Cancelled, Calcium Cancelled 02/02/22 14:05: Lactic Acid Cancelled 02/02/22 14:14: Urine Color Yellow, Urine Clarity Clear, Urine pH 6.0, Ur Specific [place] 1.015, Urine Protein 15 H, Urine Glucose (UA) Normal, Urine Ketones Negative, Urine Occult Blood Negative, Urine Nitrite Negative, Urine Bilirubin Negative, Urine Urobilinogen Normal, Ur Leukocyte Esterase Negative, Urine RBC 0 SEEN, Urine WBC 0 SEEN, Ur Squamous Epith Cells 0 SEEN, Urine Bacteria 0 SEEN, Urine Mucus 0 SEEN 02/02/22 15:00: Alkaline Phosphatase 117 02/02/22 15:01: Sodium 139, Potassium 3.8, Chloride 105, Carbon Dioxide 27.0, Anion Gap 7, BUN 7, Creatinine 0.74, Estim Creat Clear Calc 40.00, Est GFR (MDRD) Af Amer 96, Est GFR (MDRD) Non-Af 79, BUN/Creatinine Ratio 9.4 L, Glucose 126 H, Calcium 9.6 02/02/22 15:01: Lactic Acid 2.5 H* 02/02/22 17:57: POC Glucose 109 H 02/02/22 19:34: Lactic Acid Cancelled 02/02/22 20:37: Lactic Acid 2.2 H* 02/02/22 21:21: POC Glucose 156 H 02/03/22 02:05: POC Glucose 187 H 02/03/22 05:30: WBC 3.4 L, RBC 4.45, Hgb 13.8, Hct 41.4, MCV 93.0, MCH 31.0, MCHC 33.3, RDW Std Deviation 47.8 H, RDW Coeff of Sravan 14.0, Plt Count 236, MPV 9.6, Immature Gran % (Auto) 0.900, Neut % (Auto) 78.9 H, Lymph % (Auto) 18.1 L, [place] % (Auto) 2.1, Eos % (Auto) 0.0, Baso % (Auto) 0.0, Absolute Neuts (auto) 2.7, Absolute Lymphs (auto) 0.61 L, Nucleated RBC % 0 02/03/22 05:30: Sodium 138, Potassium 4.0, Chloride 106, Carbon Dioxide 26.0, Anion Gap 6, BUN 9, Creatinine 0.67, Estim Creat Clear Calc 35.52, Est GFR (MDRD) Af Amer 108, Est GFR (MDRD) Non-Af 89, BUN/Creatinine Ratio 13.5, Glucose 175 H, Calcium 9.2, Total Bilirubin 0.30, AST 25, ALT 26, Alkaline Phosphatase 102, Total Protein 6.5, Albumin 2.7 L, Globulin 3.8, Albumin/Globulin Ratio 0.7 L 02/03/22 05:39: POC Glucose 166 H Micro: Microbiology 02/02/22 13:04 Nasal Secretion SARS-CoV-2 & FLU Antigen (Rapid) - Final SARS-CoV-2 (COVID 19) Radiography Diagnostic Testing: Radiology Impression Chest X-Ray 02/02/22 14:25 IMPRESSION: There are no acute findings. Electronically Signed: Khadar Burnett MD at 14:40 EDT , Brain CT 02/02/22 14:31 IMPRESSION: There are no acute intracranial findings. Electronically Signed: Khadar Burnett MD at 15:21 EDT , Physical Exam Narrative Physical exam General: Awake, oriented x3. HEENT: Atraumatic, PERRLA, EOMI, Normocephalic Oral: No Gingival or Mucosal Lesions/ Ulcerations Neck: Supple, No JVD, Negative Carotid Bruits Lungs: Air entry diminished in bilateral lungs. No crepitation/rhonchi Cardiovascular: Regular rate, Regular Rhythm, Normal S1, Normal S2, No murmurs Abdomen: Bowel Sounds Present, Soft, Non Tender, Non-Distended : No renal angle tenderness. No suprapubic tenderness. Extremities: No edema, Capillary Refill Less than 3 Seconds Skin: No rashes, No breakdown Musculoskeletal: No Tenderness to Palpation of Joints or Extremities. ROM intact. Muscle strength 4/5 at major joints of lower extremities. Neurological: Cranial nerves II-XII grossly intact, DTR 2+/4 and Symmetrical, Neuro grossly intact Psych/Mental Status: Intermittent confusion, mild amnesia/dementia Assessment & Plan Assessment/Plan (1) COVID-19: PLAN: Onset was 01/31 Patient's oxygen dropped down to 90 to 91% Patient has been vaccinated and boosted for COVID-19 Plan: * Dexamethasone for 10 days * On remdesivir (2) Metabolic encephalopathy: PLAN: Secondary to COVID-19. Patient gets this way frequently. Patient has never been formally diagnosed with dementia nor mild cognitive impairment. Patient does have marked atrophy on her CAT scan but no acute changes. I would be concerned the patient does have some underlying dementia type that may be making her bouts of infection much more exaggerated with hallucinations. Would recommend outpatient geriatric evaluation. Will hold her gabapentin (3) Lactic acidosis: PLAN: Most likely secondary to her being on metformin which will be held. No additional work-up. Patient is not septic PLAN: Plan Chronic conditions * Diabetes mellitus type 2: Sliding scale insulin. Hold metformin * Hypothyroidism: Continue with Synthroid * Hypertension: Stable. Continue with amlodipine, atenolol * History of frequent urinary tract infections: No UTI present. Continue with methenamine VTE prophylaxis: Moderate risk. Enoxaparin. 02/03: Acute encephalopathy most probably due to COVID-19 infection. Patient encephalopathy improved. Intermittent question and memory lapses but patient is not disoriented. CT head no acute finding. Acute l COVID-19 pneumonia with mild hypoxia: Currently on 4 L of oxygen. On dexamethasone and remdesivir. Chest x-ray initially reviewed and since mild upper lobe infiltrate. CODE STATUS: Addressed with the patient's daughter. Patient is to be full CODE STATUS. Charges/Coding Visit Charges Inpatient E&M: 33614 Subs Hosp L2
[2022-02-03] MEDS: Enoxaparin 40 MG/0.4 ML Syringe SC (08:21)
[2022-02-03] MEDS: dexAMETHasone 4 MG Tablet 6 MG PO (08:22)
[2022-02-03] MEDS: Cholecalciferol (VIT D3) 25 MCG TABLET (1,000 UNITS) 100 MCG PO (08:22)
[2022-02-03] MEDS: Vitamin E 400 UNITS Capsule PO (08:22)
[2022-02-03] MEDS: cloNIDine HCl 0.1 MG Tablet PO (08:23)
[2022-02-03] MEDS: Isosorbide DN 10 MG Tablet PO ×3 (08:23→16:54)
[2022-02-03] MEDS: Pantoprazole Sodium 40 MG Tablet PO ×2 (08:23→22:19)
[2022-02-03] MEDS: amLODIPine 2.5 MG Tablet PO (08:23)
[2022-02-03] MEDS: DULoxetine Hcl 30 MG Capsule PO ×2 (08:23→22:19)
[2022-02-03] MEDS: Levothyroxine 112 MCG Tablet PO (08:26)
[2022-02-03] MEDS: Atenolol 100 MG Tablet PO (11:02)
[2022-02-03 11:31] LABS: Bedside Glucose 230 mg/dL (74-106)
--- NOTE | 2022-02-03 13:38 | CASEMGMT ---
Discharge Brothel Keeper Tiffany ramsey/kimo assistant director of plant operations sent referral over to Alessandra at the [facility]. Will follow up. Plan: [facility], Waiting Acceptance. Tiffany Banks Discharge Brothel Keeper
--- NOTE | 2022-02-03 13:39 | CASEMGMT ---
Social Work SW met w/pt and daughter Sena in room in regard to prior level of function and anticipated discharge plan. PCP: Linda Specialists: Michael for pain management, Rosales for GI, Shahbaz for orthopedic, and Apurva for urology Preferred Pharmacy: [facility] Insurance: Medicare, [employer] Prescription Benefit: yes LW/POA: As per pt and daughter Sena in room, Sena is Healthcare POA. SW let them know the forms are not in the chart, asked her to bring them in to be copied and placed on chart, daughter states understanding.` LNOK: Pt's , daughter and son in law Living arrangements/Prior level of care: Pt lives home in a one story home w/two steps in, with . assists with bathing, organizing medications, and he walks her to bathroom. Pt's or daughter take her to appts. DME/HHC/SNF: PT has shower chair, walker rollator, wheelchair, glucometer and all diabetic supplies. Pt has been to [facility], has had [facility] in the past. SW spoke w/daughter and pt about discharge plan. We spoke about going home vs going somewhere for rehab. Pt would prefer to go home. However, pt is having intermittent confusion. As per the daughter it is much better compared to yesterday. SW gave daughter list of custodial facilities in pt's preferred geographic area, that take pt's insurance, will take a pt w/COVID, complete with quality and resource use data. There are only two facilities in [facility] that will take a pt w/COVID. Daughter's [facility] choice [facility], should pt need this level of care. SW explained we will make the referral and if pt does not need to go we can always cancel it. Daughter states understanding. SW asked braulio Allen/kimo regional planner, to send referral to [facility], she will do so. JESÚS will continue to follow. KAROL Roper
--- NOTE | 2022-02-03 14:38 | CASEMGMT ---
Discharge Rubber Grinder Alessandra reached out from the [facility]. Patient has been accepted at the [facility]. JESÚS Garg notified. Plan: [facility] Tiffany Banks Discharge Rubber Grinder
--- NOTE | 2022-02-03 16:12 | CASEMGMT ---
Social Work SW spoke w/pt's daughter via telephone, let her now pt is accepted at [facility] and can go when ready. She will let pt know as she is in her room. KAROL Roper
--- NOTE | 2022-02-03 16:13 | CASEMGMT ---
Social Work Pt's daughter Sena confirmed she is healthcare POA. SW let her know the POA/LW forms are not on file, asked her to bring them in so we can put them in the chart. Daughter states understanding. KAROL Roper
[2022-02-03 16:15] LABS: Bedside Glucose 211 mg/dL (74-106)
[2022-02-03 18:40] LABS: Bedside Glucose 162 mg/dL (74-106)
[2022-02-03] MEDS: Acetaminophen 325 MG Tablet 650 MG PO (20:20)
[2022-02-03] MEDS: Methenamine Hippurate 1 GM Tablet PO (22:19)
[2022-02-03] MEDS: Ascorbic Acid 500 MG Tablet 1000 MG PO (22:19)
[2022-02-03] MEDS: Loratadine 10 MG Tablet PO (22:19)
[2022-02-03] MEDS: Aspirin E.C. 81 MG Tablet PO (22:19)
[2022-02-03] MEDS: Montelukast 10 MG Tablet PO (22:19)
[2022-02-03 22:51] LABS: Bedside Glucose 189 mg/dL (74-106)
[2022-02-04] VITALS (7 sets, daily range): BP systolic 141–173; BP diastolic 52–64; PULSE 59–85; RESP 16–20; TEMP 36.2–36.9; O2SAT 95–99
[2022-02-04] MEDS: Insulin Lispro 100 UNIT/ML INSULN.PEN SC ×2 (02:30→11:51)
[2022-02-04 02:56] LABS: Bedside Glucose 171 mg/dL (74-106)
[2022-02-04 06:45] LABS: Bedside Glucose 139 mg/dL (74-106)
[2022-02-04] MEDS: Budesonide Respules 0.5 MG/2 ML AMPUL.NEB. INHALATION (06:58)
[2022-02-04] MEDS: Albuterol 2.5 MG/3 ML VIAL.NEB. INHALATION ×2 (06:58→14:03)
[2022-02-04] MEDS: Atenolol 100 MG Tablet PO (09:00)
[2022-02-04] MEDS: dexAMETHasone 4 MG Tablet 6 MG PO (09:00)
[2022-02-04] MEDS: Pantoprazole Sodium 40 MG Tablet PO (09:00)
[2022-02-04] MEDS: amLODIPine 2.5 MG Tablet PO (09:00)
[2022-02-04] MEDS: Levothyroxine 112 MCG Tablet PO (09:00)
[2022-02-04] MEDS: Cholecalciferol (VIT D3) 25 MCG TABLET (1,000 UNITS) 100 MCG PO (09:00)
[2022-02-04] MEDS: Isosorbide DN 10 MG Tablet PO ×2 (09:01→11:46)
[2022-02-04] MEDS: Enoxaparin 40 MG/0.4 ML Syringe SC (09:01)
[2022-02-04] MEDS: DULoxetine Hcl 30 MG Capsule PO (09:01)
[2022-02-04] MEDS: cloNIDine HCl 0.1 MG Tablet PO (09:01)
[2022-02-04 09:46] LABS: Bedside Glucose 137 mg/dL (74-106)
--- NOTE | 2022-02-04 10:36 | TREXTCAR_ITS ---
Diet Diet Order/Speech Therapy: 02/03/22 11:09 Diet: Carbohydrate Controlled Type of Dietary Supplement:: Glucerna Shake Is pt able to select menu?: No Diet Comments: 120 ml GS w/ meals tid Routine Orders/Code Status Suppository Type: Dulcolax 10mg Suppository Frequency: Daily PRN Code Status: Full Code Therapies Weight Bearing: Weight bearing as tolerated Extremity Affected:: Bilateral Lower Physical Therapy: Eval and Treat Occupational Therapy: Eval and Treat Speech Therapy: Eval and Treat Problem/Diagnosis (1) COVID-19: Status: Acute Code(s): U07.1 - COVID-19 Plan: Onset was 01/31 Patient's oxygen dropped down to 90 to 91% Patient has been vaccinated and boosted for COVID-19 Plan: * Dexamethasone for 10 days * On remdesivir (2) Metabolic encephalopathy: Status: Acute Code(s): G93.41 - Metabolic encephalopathy Plan: Secondary to COVID-19. Patient gets this way frequently. Patient has never been formally diagnosed with dementia nor mild cognitive impairment. Patient does have marked atrophy on her CAT scan but no acute changes. I would be concerned the patient does have some underlying dementia type that may be making her bouts of infection much more exaggerated with hallucinations. Would recommend outpatient geriatric evaluation. Will hold her gabapentin (3) Lactic acidosis: Status: Acute Code(s): E87.2 - Acidosis Plan: Most likely secondary to her being on metformin which will be held. No additional work-up. Patient is not septic Plan Chronic conditions * Diabetes mellitus type 2: Sliding scale insulin. Hold metformin * Hypothyroidism: Continue with Synthroid * Hypertension: Stable. Continue with amlodipine, atenolol * History of frequent urinary tract infections: No UTI present. Continue with methenamine VTE prophylaxis: Moderate risk. Enoxaparin. 02/03: Acute encephalopathy most probably due to COVID-19 infection. Patient encephalopathy improved. Intermittent question and memory lapses but patient is not disoriented. CT head no acute finding. Acute l COVID-19 pneumonia with mild hypoxia: Currently on 4 L of oxygen. On dexamethasone and remdesivir. Chest x-ray initially reviewed and since mild upper lobe infiltrate. CODE STATUS: Addressed with the patient's daughter. Patient is to be full CODE STATUS. Allergies/Procedures Done in Hospital Allergies hydrocodone bitartrate [From Vicodin] Adverse Reaction (Verified 02/02/22 13:19) Other HALLUCINATIONS oxycodone HCl [From Percocet] Adverse Reaction (Verified 02/02/22 13:19) Other HALLUCINATIONS tramadol Adverse Reaction (Verified 02/02/22 13:19) Other HALLUCINATIONS Type of Care/Length of Stay Estimated LOS: Convalescent Care Less Than 30 days Type of Care Needed: Skilled Rehab Potential: Good Prognosis: Good Additional Orders/Day of Discharge Day of Discharge: 02/04/22 Dietary and Speech Recommendations Dietitian Recommendations/Changes: Will change diet to CHO Control w/ 120 ml glucerna shake tid w/ meals Discharge Plan Admission Admit Date/Time: 02/02/22 16:28 Attending Provider: Luke Pascual Primary Care Provider: Carin Mckeon Consulting Providers: Lester Jacome Discharge Orders/Prescriptions Prescriptions: New isosorbide dinitrate 10 mg Tablet 10 mg PO TIDCM Qty: 0 0RF doxycycline hyclate 100 mg tablet 100 mg PO BID Qty: 9 0RF methenamine hippurate 1 gram Tablet 1 g PO QHS Qty: 0 0RF ascorbic acid (vitamin C) 500 mg Tablet 1,000 mg PO QHS Qty: 30 0RF insulin lispro [Humalog KwikPen Insulin] 100 unit/mL Insulin Pen See Protocol subcut Q4 Qty: 0 0RF Protocol: 3. Sliding Scale Insulin Med Dosing Condition: 150-189 mg/dl = 1 unit Condition: 190-229 mg/dl = 2 units Condition: 230-269 mg/dl = 3 units Condition: 270-309 mg/dl = 4 units Condition: 310-349 mg/dl = 5 units Condition: 350-399 mg/dl = 6 units Condition: 400-449 mg/dl = 7 units Condition: Greater than 449 call physician Protocol Text: - Use for Total Daily Dose of Insulin 37-55 units - Obsese, infected, or steroid patients MEDIUM DOSING ALGORITHIM vitamin E (dl, acetate) 180 mg (400 unit) Capsule 400 units PO DAILY Qty: 0 0RF Eliquis 2.5 mg tablet 2.5 mg PO BID Qty: 30 0RF Rx Instructions: 2 weeks for DVT prophylaxis for Covid infection Continued atenolol 100 MG tablet 100 mg PO DAILY aspirin 81 MG tablet 81 mg PO QHS montelukast 10 MG tablet 10 mg PO QHS levothyroxine 112 MCG tablet 224 mcg PO SUSA Label Comments: thursday levothyroxine 112 MCG tablet 112 mcg PO MOTUWETHFR gabapentin 300 MG capsule 300 mg PO BID duloxetine 30 MG capsule 30 mg PO BID clonidine HCl 0.1 MG tablet 0.1 mg PO DAILY amlodipine 2.5 MG tablet 2.5 mg PO DAILY cholecalciferol (vitamin D3) 2,000 UNIT tablet,chewable 8,000 unit PO DAILY loperamide 2 MG capsule 2 mg PO TID PRN (Reason: diarrhea') omeprazole 40 mg Capsule,Delayed Release(Dr/Ec) 40 mg PO BID dicyclomine 10 mg capsule 10 mg PO Q6H PRN PRN (Reason: abdominal discomfort) Qty: 20 0RF mometasone 50 mcg/actuation [place],Non-Aerosol 2 spray INTRANASAL DAILY Rx Instructions: administer into each nostril Changed fexofenadine 180 MG tablet 180 mg PO QHS PRN (Reason: allergic rhinits) Qty: 3 0RF Discontinued isosorbide dinitrate 5 MG tablet 5 mg PO TIDCM cephalexin 250 mg Capsule 250 mg PO QHS Referrals / Follow Up: Carin Mckeon DO [Primary Care Provider] -
[2022-02-04] MEDS: QUEtiapine 25 MG Tablet PO (10:42)
--- NOTE | 2022-02-04 10:55 | DS.PCM_ITS ---
Providers Date of Admission: 02/02/22 Date of Discharge: 02/04/22 Primary Care Physician: Dr. Carin Mckeon, DO Reason For Visit: COVID 19, DEBILITY Diagnosis Discharge Diagnosis (1) COVID-19: Status: Acute Code(s): U07.1 - COVID-19 Plan: Onset was 01/31 Patient's oxygen dropped down to 90 to 91% Patient has been vaccinated and boosted for COVID-19 Plan: * Dexamethasone for 10 days * On remdesivir (2) Metabolic encephalopathy: Status: Acute Code(s): G93.41 - Metabolic encephalopathy Plan: Secondary to COVID-19. Patient gets this way frequently. Patient has never been formally diagnosed with dementia nor mild cognitive impairment. Patient does have marked atrophy on her CAT scan but no acute changes. I would be concerned the patient does have some underlying dementia type that may be making her bouts of infection much more exaggerated with hallucinations. Would recommend outpatient geriatric evaluation. Will hold her gabapentin (3) Lactic acidosis: Status: Acute Code(s): E87.2 - Acidosis Plan: Most likely secondary to her being on metformin which will be held. No additional work-up. Patient is not septic Plan Chronic conditions * Diabetes mellitus type 2: Sliding scale insulin. Hold metformin * Hypothyroidism: Continue with Synthroid * Hypertension: Stable. Continue with amlodipine, atenolol * History of frequent urinary tract infections: No UTI present. Continue with methenamine VTE prophylaxis: Moderate risk. Enoxaparin. 02/03: Acute encephalopathy most probably due to COVID-19 infection. Patient encephalopathy improved. Intermittent question and memory lapses but patient is not disoriented. CT head no acute finding. Acute l COVID-19 pneumonia with mild hypoxia: Currently on 4 L of oxygen. On dexamethasone and remdesivir. Chest x-ray initially reviewed and since mild upper lobe infiltrate. CODE STATUS: Addressed with the patient's daughter. Patient is to be full CODE STATUS. Medications at Discharge Home Medications aspirin 81 mg tablet,delayed release 81 mg PO QHS HRT 07/10/15 atenolol 100 mg tablet 100 mg PO DAILY bp 07/10/15 levothyroxine 112 mcg tablet 112 mcg PO MOTUWETHFR THYROID 07/10/15 levothyroxine 112 mcg tablet 224 mcg PO SUSA THYROID 07/10/15 montelukast 10 mg tablet 10 mg PO QHS ALLERGY 07/10/15 gabapentin 300 mg capsule 300 mg PO BID NERVE PAIN 02/16/17 duloxetine 30 mg capsule,delayed release 30 mg PO BID DEPRESSION 07/08/18 amlodipine 2.5 mg tablet 2.5 mg PO DAILY BP 07/29/19 cholecalciferol (vitamin D3) 50 mcg (2,000 unit) chewable tablet 8,000 unit PO DAILY SUPPLEMENT 07/29/19 clonidine HCl 0.1 mg tablet 0.1 mg PO DAILY BP 07/29/19 loperamide 2 mg capsule 2 mg PO TID PRN diarrhea' 08/08/20 omeprazole 40 mg capsule,delayed release 40 mg PO BID gerd 10/03/21 dicyclomine 10 mg capsule 10 mg PO Q6H PRN PRN abdominal discomfort #20 CAPSULES 01/17/22 mometasone 50 mcg/actuation nasal spray 2 spray intranasal DAILY nasal spray 02/02/22 apixaban 2.5 mg tablet (Eliquis) 2.5 mg PO BID #30 tabs 02/04/22 ascorbic acid (vitamin C) 500 mg tablet 1,000 mg PO QHS #30 tabs 02/04/22 doxycycline hyclate 100 mg tablet 100 mg PO BID #9 tabs 02/04/22 fexofenadine 180 mg tablet 180 mg PO QHS PRN allergic rhinits #3 tabs 02/04/22 insulin lispro 100 unit/mL subcutaneous pen (Humalog KwikPen (U-100) Insulin) See Protocol subcut Q4 #0 mL 02/04/22 isosorbide dinitrate 10 mg tablet 10 mg PO TIDCM #0 tabs 02/04/22 methenamine hippurate 1 gram tablet 1 g PO QHS #0 tabs 02/04/22 vitamin E (dl, acetate) 180 mg (400 unit) capsule 400 units PO DAILY #0 caps 02/04/22 Hospital Course Summary of Care Provided Hospital Course: This 36-year-old patient woman was brought by EMS to ED for confusion for 2 days prior to admission. Fever was noticed temperature 102 Fahrenheit at home. Patient had similar presentation during private duty as per the daughter. Patient was admitted to [facility] floor. Patient's diagnosis, hospital course, assessment and plan admission below 1. Acute mild COVID-19 pneumonia: Onset was 01/31. Patient had mild hypoxia during admission and hospital course. Patient has been vaccinated and boosted for COVID-19. Patient was treated with dexamethasone and remdesivir for 2 days. Chest x-ray although reported no acute infiltrate but DJD reviewed and I feel p atient is mild right upper lobe infiltrate. Patient was more confused, jittery, restless, agitated therefore dexamethasone was not discontinued as it might be psychiatric/psychotic side effects of his steroid. Patient oxygenation improved, currently requiring 2 L of oxygen but most recent 99% on room air. Hypoxia resolved. (2) Metabolic and possible infectious encephalopathy from COVID-19 and Enterococcus UTI: Treated with Seroquel. CT head no acute change. Got better. Outpatient geriatric psych follow-up. Intermittent confusion and memory lapses but patient is not disoriented. (3) Lactic acidosis: Probably due to metformin. Patient not septic. Acute on recurrent frequent UTI: Patient previous urine culture showed E. coli 2 times and Klebsiella. This time urine culture shows 1000-10,000 colonies of Enterococcus feecium. Discussed with the ID, Dr. Jacques. I agreed on idania ating as patient has history of recurrent UTI and is confused. As per sensitivity, started on doxycycline 100 mg twice daily, prescription given for total of 5 days. Chronic conditions * Diabetes mellitus type 2: Sliding scale insulin.? Hold metformin. Continue sliding scale insulin in long term. * Hypothyroidism: Continue with Synthroid * Hypertension: Stable.? Continue with amlodipine, atenolol Discharge medication reconciliation done. Discharge follow-up instructions completed. Discharge process discussed with the patient's daughter and all questions were answered to her satisfaction. Agrees for discharge to SNF. Total time spent, exact 35 minutes on discharge meds reconciliation, examination, coordination of care with nurses and ancillary staff, review of imaging and blood test and discussion with the patient on follow-up instructions. VTE prophylaxis: Moderate risk.? Enoxaparin. CODE STATUS: Addressed with the patient's daughter.? Patient is to be full CODE STATUS. Microbiology Past 72 Hours 02/02/22 14:14 Urine Catheter - Catheter Urine Culture - Final Enterococcus faecium 02/02/22 13:04 Blood Culture (Wb) - Right Forearm Blood Culture - Preliminary No growth in 48 hours. 02/02/22 13:04 Blood Culture (Wb) - Right Wrist Blood Culture - Preliminary No growth in 48 hours. 02/02/22 13:04 Nasal Secretion SARS-CoV-2 & FLU Antigen (Rapid) - Final SARS-CoV-2 (COVID 19) Laboratory Results 02/03/22 15:44: POC Glucose 211 H 02/03/22 18:04: POC Glucose 162 H 02/03/22 22:11: POC Glucose 189 H 02/04/22 02:25: POC Glucose 171 H 02/04/22 06:14: POC Glucose 139 H 02/04/22 09:02: POC Glucose 137 H 02/04/22 11:49: POC Glucose Pending Charges/Coding Physical Exam Narrative Patient seen and examined with nurse in the presence of patient's daughter. Discussed with the patient's daughter. Physical exam General: Intermittent confusion. Patient was confused and disoriented in the morning today. HEENT: Atraumatic, PERRLA, EOMI, Normocephalic Oral: No Gingival or Mucosal Lesions/ Ulcerations Neck: Supple, No JVD, Negative Carotid Bruits Lungs: Air entry diminished in bilateral lungs. No crepitation/rhonchi Cardiovascular: Regular rate, Regular Rhythm, Normal S1, Normal S2, No murmurs Abdomen: Bowel Sounds Present, Soft, Non Tender, Non-Distended : No renal angle tenderness. No suprapubic tenderness. Extremities: No edema, Capillary Refill Less than 3 Seconds Skin: No rashes, No breakdown Musculoskeletal: No Tenderness to Palpation of Joints or Extremities. ROM intact. Muscle strength 4/5 at major joints of lower extremities. Neurological: Cranial nerves II-XII grossly intact, DTR 2+/4 and Symmetrical, Neuro grossly intact Psych/Mental Status: Intermittent confusion, mild amnesia/dementia Weight / BMI Weight Weight: 203 lb 3.2 oz Body Mass Index (BMI) 34.9 ABG / Lab / Microbiology Data Result Diagrams: 02/03/22 05:30 02/03/22 05:30 Laboratory: Laboratory Results - last 24 hr 02/03/22 10:58: POC Glucose 230 H 02/03/22 15:44: POC Glucose 211 H 02/03/22 18:04: POC Glucose 162 H 02/03/22 22:11: POC Glucose 189 H 02/04/22 02:25: POC Glucose 171 H 02/04/22 06:14: POC Glucose 139 H 02/04/22 09:02: POC Glucose 137 H Microbiology: Microbiology 02/02/22 14:14 Urine Catheter - Catheter Urine Culture - Final Enterococcus faecium 02/02/22 13:04 Blood Culture (Wb) - Right Forearm Blood Culture - Prelimin filiberto No growth in 48 hours. 02/02/22 13:04 Blood Culture (Wb) - Right Wrist Blood Culture - Preliminary No growth in 48 hours. 02/02/22 13:04 Nasal Secretion SARS-CoV-2 & FLU Antigen (Rapid) - Final SARS-CoV-2 (COVID 19) Meaningful Use Info Meaningful Use Diagnoses (Choose all that apply): None applicable Discharge Plan Admission Admit Date/Time: 02/02/22 16:28 Attending Provider: Luke Pascual Primary Care Provider: Carin Mckeon Consulting Providers: Lester Jacome Discharge Orders/Prescriptions Prescriptions: New isosorbide dinitrate 10 mg Tablet 10 mg PO TIDCM Qty: 0 0RF doxycycline hyclate 100 mg tablet 100 mg PO BID Qty: 9 0RF methenamine hippurate 1 gram Tablet 1 g PO QHS Qty: 0 0RF ascorbic acid (vitamin C) 500 mg Tablet 1,000 mg PO QHS Qty: 30 0RF insulin lispro [Humalog KwikPen Insulin] 100 unit/mL Insulin Pen See Protocol subcut Q4 Qty: 0 0RF Protocol: 3. Sliding Scale Insulin Med Dosing Condition: 150-189 mg/dl = 1 unit Condition: 190-229 mg/dl = 2 units Condition: 230-269 mg/dl = 3 units Condition: 270-309 mg/dl = 4 units Condition: 310-349 mg/dl = 5 units Condition: 350-399 mg/dl = 6 units Condition: 400-449 mg/dl = 7 units Condition: Greater than 449 call physician Protocol Text: - Use for Total Daily Dose of Insulin 37-55 units - Obsese, infected, or steroid patients MEDIUM DOSING ALGORITHIM vitamin E (dl, acetate) 180 mg (400 unit) Capsule 400 units PO DAILY Qty: 0 0RF Eliquis 2.5 mg tablet 2.5 mg PO BID Qty: 30 0RF Rx Instructions: 2 weeks for DVT prophylaxis for Covid infection Continued atenolol 100 MG tablet 100 mg PO DAILY aspirin 81 MG tablet 81 mg PO QHS montelukast 10 MG tablet 10 mg PO QHS levothyroxine 112 MCG tablet 224 mcg PO SUSA Label Comments: thursday levothyroxine 112 MCG tablet 112 mcg PO MOTUWETHFR gabapentin 300 MG capsule 300 mg PO BID duloxetine 30 MG capsule 30 mg PO BID clonidine HCl 0.1 MG tablet 0.1 mg PO DAILY amlodipine 2.5 MG tablet 2.5 mg PO DAILY cholecalciferol (vitamin D3) 2,000 UNIT tablet,chewable 8,000 unit PO DAILY loperamide 2 MG capsule 2 mg PO TID PRN (Reason: diarrhea') omeprazole 40 mg Capsule,Delayed Release(Dr/Ec) 40 mg PO BID dicyclomine 10 mg capsule 10 mg PO Q6H PRN PRN (Reason: abdominal discomfort) Qty: 20 0RF mometasone 50 mcg/actuation [place],Non-Aerosol 2 spray INTRANASAL DAILY Rx Instructions: administer into each nostril Changed fexofenadine 180 MG tablet 180 mg PO QHS PRN (Reason: allergic rhinits) Qty: 3 0RF Discontinued isosorbide dinitrate 5 MG tablet 5 mg PO TIDCM cephalexin 250 mg Capsule 250 mg PO QHS Referrals / Follow Up: Carin Mckeon DO [Primary Care Provider] -
[2022-02-04] MEDS: Doxycycline 100 MG CAPSULE PO (11:46)
[2022-02-04 12:10] LABS: Bedside Glucose 194 mg/dL (74-106)
--- NOTE | 2022-02-04 14:41 | CASEMGMT ---
Social Work JESÚS spoke to pt's daughter, who was in pt room with her, to notify that pt will be transported to [facility] today following her discharge from the hospital. Daughter, Sena, voiced her understanding. JESÚS completed 7000 convalescent form in [facility] system. [place], Jacki, set up wheelchair transportation through [facility] (while JESÚS was in training) for 3:00pm. JESÚS called Alessandra at [facility] to report transport time. Alessandra voiced understanding. Faxed orders to Alessandra at [facility], placed copies on pt's chart and in envelope to go with pt.?? Disposition: [facility] for skilled, convalescent level of care. DIONY Waters
--- NOTE | 2022-02-04 15:27 | NURSING ---
attempted to call report to [facility] for discharge report. message left with call back information.
== END 2022-02-04 15:26 | DRG 177 ==
LOC: ED 16:43 → MS3 16:52
PROVIDERS: Emergency Provider Emergency Medicine; PCP Internal Medicine; Visit Provider Internal Medicine
DX: U07.1 COVID-19 (principal); G93.41 Metabolic encephalopathy; J12.82 Pneumonia due to coronavirus disease 2019; E87.2 Acidosis; J44.0 Chronic obstructive pulmonary disease with (acute) lower respiratory infection; N39.0 Urinary tract infection, site not specified; E11.9 Type 2 diabetes mellitus without complications; B95.2 Enterococcus as the cause of diseases classified elsewhere; B96.1 Klebsiella pneumoniae [K. pneumoniae] as the cause of diseases classified elsewhere; E03.9 Hypothyroidism, unspecified; I10 Essential (primary) hypertension; E78.5 Hyperlipidemia, unspecified; K58.9 Irritable bowel syndrome, unspecified; M19.90 Unspecified osteoarthritis, unspecified site; K21.9 Gastro-esophageal reflux disease without esophagitis; Z87.891 Personal history of nicotine dependence; Z79.84 Long term (current) use of oral hypoglycemic drugs; E66.9 Obesity, unspecified; Z79.82 Long term (current) use of aspirin; R09.02 Hypoxemia; B96.20 Unspecified Escherichia coli [E. coli] as the cause of diseases classified elsewhere; Z79.899 Other long term (current) drug therapy; Z79.890 Hormone replacement therapy; F03.90 Unspecified dementia, unspecified severity, without behavioral disturbance, psychotic disturbance, mood disturbance, and anxiety
CPT/HCPCS: 36415; 70450; 71045; 80048; 80053; 81001; 82962; 83605; 84075; 85025; 87040; 87077; 87086; 87088; 87186; 87428; 93005; 94640; 94667; 94668; 97162; 97166; 97802; 99285; J7050; A4216; J0248

== ENCOUNTER 2022-03-10 15:30 | Emergency (ER) | payer MEDICARE, OTHER, SELFPAY ==
[2018-12-14 15:07] VITALS: BMI 33.4
[2022-03-10 15:32] VITALS: TEMP 36.4; BMI 34.4
[2022-03-10 15:35] VITALS: BP 151/62; PULSE 73; O2SAT 93
--- NOTE | 2022-03-10 16:15 | CT_ITS ---
STUDY: CT ABDOMEN AND PELVIS WITHOUT CONTRAST REASON FOR EXAM: Female, 86 years old. abdominal pain RADIATION DOSAGE (If Supplied By Facility): CTDIvol = ( 13.74 ) mGy, DLP = ( 703.56 ) mGycm TECHNIQUE: Transaxial 2.5 mm images were obtained from the dome of the diaphragm to the symphysis pubis without oral contrast, and without intravenous contrast. Sagittal and coronal images were reconstructed. This examination is limited for the evaluation of gastrointestinal, solid organs and vascular structures due to the lack of intravenous and oral contrast. There is obesity, the entirety of soft tissue is not imaged. Individualized dose optimization techniques were used for this CT. COMPARISON: CT abdomen and pelvis 10/29/2021 axial and sagittal images only. 02/12/2021 FINDINGS: Stable nonspecific compression of the dependent parenchyma. Small stable pleural-based calcified nodule right middle lobe. The visualized portions of the heart are within normal limits. Normal liver. There are surgical clips in the gallbladder fossa consistent with a prior cholecystectomy. There is stable dilatation of the common bile duct with dependent hyperattenuation in the pancreas head, dilatation up to 1.1 cm. There is a stable duodenal diverticulum. Normal spleen. There is fat infiltration along the pancreas head and duodenal sweep, new since most recent exam. Normal bilateral adrenal glands. Bilateral small nonobstructing renal calculi, stable on the right, new 1 mm size in the left kidney. Normal visualized stomach. Stable repair diverticula off the distal small bowel. There are stable rare sigmoid colonic diverticula consistent with diverticulosis. Appendix is not separable from adjacent bowel. There is diffuse atherosclerotic calcification of the abdominal aorta, without a demonstrated aneurysm. Normal inferior vena cava. Normal retroperitoneum. Decompressed urinary bladder, tiny pocket of air possible iatrogenic.. There is atrophy of the uterus. Normal abdominal wall. There are diffuse degenerative changes of the visualized lumbar spine. Postsurgical changes laminectomy and neurostimulator device application CT/Abdomen/Pelvis without Cont IMPRESSION: Pancreas fat infiltration along the head and duodenal sweep may be due to mild pancreatitis amount of artery correlation advised. Stable choledocholithiasis with common bile duct dilatation, duodenal diverticulum, prior cholecystectomy. Small bilateral renal calculi without obstruction. Arterial sclerosis, osseous changes, rare sigmoid and distal small bowel diverticula felt to be nonacute findings. Electronically Signed: Anisa Bates MD at 18:01 EDT [place] Location ID and State: , Service support ,
--- NOTE | 2022-03-10 16:16 | EX.ED.DYSGE1 ---
HPI History of Present Illness Chief Complaint: Abd Pain Narrative Narrative: Patient presenting with abdominal pain epigastric pain and right upper quadrant pain for 3 days. She does have nausea. No lower abdominal pain, no urinary symptoms. No back pain or tearing sensation no flank pain. No chest pain or shortness of breath [facility] Medical History abnormal ultrasound right breast Acute bronchitis due to Haemophilus influenzae Anxiety and depression Asthma Breast cancer, right (~11/2018) Cancer Chronic obstructive pulmonary disease (COPD) Diabetes Diabetes mellitus, type II Difficulty swallowing Elevated liver enzymes GERD (gastroesophageal reflux disease) HLD (hyperlipidemia) HTN (hypertension) Hx: UTI (urinary tract infection) Hypothyroidism Irritable bowel Kidney disease Obesity (BMI 30-39.9) Home Medications aspirin 81 mg tablet,delayed release 81 mg PO QHS HRT 07/10/15 [History Last Taken 10/02/21] atenolol 100 mg tablet 100 mg PO DAILY bp 07/10/15 [History Last Taken 10/02/21] levothyroxine 112 mcg tablet 112 mcg PO MOTUWETHFR THYROID 07/10/15 [History Last Taken 10/02/21] levothyroxine 112 mcg tablet 224 mcg PO SUSA THYROID 07/10/15 [History Last Taken 09/29/21] montelukast 10 mg tablet 10 mg PO QHS ALLERGY 07/10/15 [History Last Taken 10/02/21] gabapentin 300 mg capsule 300 mg PO BID NERVE PAIN 02/16/17 [History Last Taken 10/02/21] duloxetine 30 mg capsule,delayed release 30 mg PO BID DEPRESSION 07/08/18 [History Last Taken 07/29/19] amlodipine 2.5 mg tablet 2.5 mg PO DAILY BP 07/29/19 [History Last Taken 10/02/21] cholecalciferol (vitamin D3) 50 mcg (2,000 unit) chewable tablet 8,000 unit PO DAILY SUPPLEMENT 07/29/19 [History Last Taken 10/02/21] clonidine HCl 0.1 mg tablet 0.1 mg PO DAILY BP 07/29/19 [History Last Taken 10/02/21] loperamide 2 mg capsule 2 mg PO TID PRN diarrhea' 08/08/20 [History Last Taken Unknown] omeprazole 40 mg capsule,delayed release 40 mg PO BID gerd 10/03/21 [History Last Taken 10/02/21] dicyclomine 10 mg capsule 10 mg PO Q6H PRN PRN abdominal discomfort #20 CAPSULES 01/17/22 [Rx Last Taken Unknown] mometasone 50 mcg/actuation nasal spray 2 spray intranasal DAILY nasal spray 02/02/22 [History Last Taken Unknown] apixaban 2.5 mg tablet (Eliquis) 2.5 mg PO BID #30 tabs 02/04/22 [Rx Last Taken Unknown] ascorbic acid (vitamin C) 500 mg tablet 1,000 mg PO QHS #30 tabs 02/04/22 [Rx Last Taken Unknown] doxycycline hyclate 100 mg tablet 100 mg PO BID #9 tabs 02/04/22 [Rx Last Taken Unknown] fexofenadine 180 mg tablet 180 mg PO QHS PRN allergic rhinits #3 tabs 02/04/22 [Rx Last Taken 10/02/21] insulin lispro 100 unit/mL subcutaneous pen (Humalog KwikPen (U-100) Insulin) See Protocol subcut Q4 #0 mL 02/04/22 [Rx Last Taken Unknown] isosorbide dinitrate 10 mg tablet 10 mg PO TIDCM #0 tabs 02/04/22 [Rx Last Taken Unknown] methenamine hippurate 1 gram tablet 1 g PO QHS #0 tabs 02/04/22 [Rx Last Taken Unknown] vitamin E (dl, acetate) 180 mg (400 unit) capsule 400 units PO DAILY #0 caps 02/04/22 [Rx Last Taken Unknown] hydrocodone-acetaminophen 5-325mg 5mg-325mg 1 tab PO Q6H PRN pain 3 days #12 tabs 03/10/22 [Rx Last Taken Unknown] ondansetron 4 mg disintegrating tablet 4 mg PO Q6H #10 tabs 03/10/22 [Rx Last Taken Unknown] Allergy/AdvReac Type Severity Reaction Status Date / Time hydrocodone bitartrate AdvReac Other Verified 03/10/22 15:35 [From Vicodin] oxycodone HCl [From Percocet] AdvReac Other Verified 03/10/22 15:35 tramadol AdvReac Other Verified 03/10/22 15:35 Family History Brother Breast cancer Kidney disease Heart disease Father Heart disease Surgical History history laminectomy with decompression History of cholecystectomy History of laparoscopic cholecystectomy History of left mastectomy History of right mastectomy (~11/2018) history partial right oophorectomy Status post left partial knee replacement Social History Smoking Status: Former smoker alcohol intake: never substance use type: does not use ROS ROS ED ROS Narrative Past medical history: Reviewed in [employer], includes wheelchair-bound, half-way patient, history of pulmonary hypertension, diastolic dysfunction left bundle branch block COPD, hypothyroidism, obesity hypertension, hyperlipidemia, diabetes Medications: Reviewed in [employer] and [facility] paperwork Social history: Lives in a half-way Review of systems: All systems negative except as indicated General: No fever Eyes: No visual changes ENT: No upper airway congestion, normal voice Neck: No neck pain Cardiovascular: No chest pain Respiratory: No shortness of breath or cough Gastrointestinal: Abdominal pain as in HPI Genitourinary: No dysuria Musculoskeletal: Denies myalgias, she is wheelchair-bound due to chronic weakness Skin: No rash Neurological: No memory loss, confusion or any focal weakness Psych: No recent behavioral changes Hematologic: No easy bleeding or easy bruising EXAM Physical Exam Narrative Exam Narrative: Physical exam General: Patient appears chronically ill she does not appear in significant distress she appears relatively comfortable. Head: Normocephalic, Atraumatic Eyes: Conjunctiva not pale ENT: Moist mucous membranes Neck: Supple, Nontender, No lymphadenopathy Cardiovascular: Regular rate, Regular rhythm Respiratory: No distress, CTA bilaterally Abdomen: Soft, some epigastric tenderness and some right upper quadrant pain, negative Agrawal's. No lower abdominal pain. No guarding or rebound Back: Nontender, Normal Inspection. Negative for: CVA tenderness Extremities: Nontender, No edema Skin: Normal color, No rash Neurological: Alert, Normal Strength, Normal Sensation Psychological: Normal affect Const Vital Signs: 03/10/22 15:32 03/10/22 15:35 03/10/22 18:24 Temperature 97.5 F L Temperature Source Temporal Pulse Rate 73 Respiratory Rate 16 Blood Pressure 151/62 H Blood Pressure Mean 91 Pulse Ox 93 Oxygen Delivery Method Room Air MDM MDM MDM Narrative Medical decision making narrative: Patient has a normal work-up. I am unsure about the etiology of her symptoms, she did not improve with Pepcid, she does have some chronic findings on her CT which may or may not correlate with her pain regardless there is nothing here to keep her admitted. I will discharge her home with analgesia. She does see GI, Dr. Garza I told her to make an appoint with them. Lab Data Labs: Laboratory Results - last 24 hr 03/10/22 03/10/22 03/10/22 16:55 16:55 18:23 WBC 13.7 H RBC 5.06 Hgb 15.5 H Hct 48.5 H MCV 95.8 MCH 30.6 MCHC 32.0 RDW Std Deviation 49.0 H RDW Coeff of Sravan 13.8 Plt Count 422 MPV 9.7 Sodium 137 Potassium 3.8 Chloride 100 Carbon Dioxide 30.0 Anion Gap 7 BUN 9 Creatinine 0.68 Estim Creat Clear Calc 35.52 Est GFR (MDRD) Af Amer 106 Est GFR (MDRD) Non-Af 88 BUN/Creatinine Ratio 13.3 Glucose 148 H Calcium 10.4 H Total Bilirubin 0.80 AST 27 ALT 41 Alkaline Phosphatase 154 H Total Protein 8.0 Albumin 2.9 L Globulin 5.1 H Albumin/Globulin Ratio 0.6 L Lipase 125 Urine Color [place]ilo Urine Clarity Clear Urine pH 6.0 Ur Specific [place] 1.025 Urine Protein 30 H Urine Glucose (UA) Normal Urine Ketones 15 H Urine Occult Blood Negative Urine Nitrite Negative Urine Bilirubin Negative Urine Urobilinogen Normal Ur Leukocyte Esterase 25 H Urine RBC 0 SEEN Urine WBC 5-10 SEEN Ur Squamous Epith Cells 5-10 SEEN Urine Bacteria 1+ Urine Mucus 3+ Urine Yeast 2+ Radiography Diagnostic Testing: Clinical Impression(s) from Imaging Studies Abdomen/Pelvis CT 03/10/22 16:15 IMPRESSION: Pancreas fat infiltration along the head and duodenal sweep may be due to mild pancreatitis amount of artery correlation advised. Stable choledocholithiasis with common bile duct dilatation, duodenal diverticulum, prior cholecystectomy. Small bilateral renal calculi without obstruction. Arterial sclerosis, osseous changes, rare sigmoid and distal small bowel diverticula felt to be nonacute findings. Electronically Signed: Anisa Bates MD at 18:01 EDT Reading Location ID and State: , Service support , Discharge Plan Triage Chief Complaint: Abd Pain ED Provider: Hiren Smith Dx/Rx/DC Orders Clinical Impression: Abdominal pain, Nausea Instructions: Abdominal Pain Prescriptions: New hydrocodone-acetaminophen 5-325 mg tablet 1 tab PO Q6H PRN (Reason: pain) 3 Days Qty: 12 0RF ondansetron 4 mg tablet,disintegrating 4 mg PO Q6H Qty: 10 0RF No Action atenolol 100 MG tablet 100 mg PO DAILY aspirin 81 MG tablet 81 mg PO QHS montelukast 10 MG tablet 10 mg PO QHS levothyroxine 112 MCG tablet 224 mcg PO SUSA Label Comments: thursday levothyroxine 112 MCG tablet 112 mcg PO MOTUWETHFR gabapentin 300 MG capsule 300 mg PO BID duloxetine 30 MG capsule 30 mg PO BID clonidine HCl 0.1 MG tablet 0.1 mg PO DAILY amlodipine 2.5 MG tablet 2.5 mg PO DAILY cholecalciferol (vitamin D3) 2,000 UNIT tablet,chewable 8,000 unit PO DAILY loperamide 2 MG capsule 2 mg PO TID PRN (Reason: diarrhea') omeprazole 40 mg Capsule,Delayed Release(Dr/Ec) 40 mg PO BID dicyclomine 10 mg capsule 10 mg PO Q6H PRN PRN (Reason: abdominal discomfort) Qty: 20 0RF mometasone 50 mcg/actuation [place],Non-Aerosol 2 spray INTRANASAL DAILY Rx Instructions: administer into each nostril isosorbide dinitrate 10 mg Tablet 10 mg PO TIDCM Qty: 0 0RF doxycycline hyclate 100 mg tablet 100 mg PO BID Qty: 9 0RF methenamine hippurate 1 gram Tablet 1 g PO QHS Qty: 0 0RF ascorbic acid (vitamin C) 500 mg Tablet 1,000 mg PO QHS Qty: 30 0RF insulin lispro [Humalog KwikPen Insulin] 100 unit/mL Insulin Pen See Protocol subcut Q4 Qty: 0 0RF Protocol: 3. Sliding Scale Insulin Med Dosing Condition: 150-189 mg/dl = 1 unit Condition: 190-229 mg/dl = 2 units Condition: 230-269 mg/dl = 3 units Condition: 270-309 mg/dl = 4 units Condition: 310-349 mg/dl = 5 units Condition: 350-399 mg/dl = 6 units Condition: 400-449 mg/dl = 7 units Condition: Greater than 449 call physician Protocol Text: - Use for Total Daily Dose of Insulin 37-55 units - Obsese, infected, or steroid patients MEDIUM DOSING ALGORITHIM vitamin E (dl, acetate) 180 mg (400 unit) Capsule 400 units PO DAILY Qty: 0 0RF Eliquis 2.5 mg tablet 2.5 mg PO BID Qty: 30 0RF Rx Instructions: 2 weeks for DVT prophylaxis for Covid infection fexofenadine 180 MG tablet 180 mg PO QHS PRN (Reason: allergic rhinits) Qty: 3 0RF Primary Care Provider: Carin Mckeon Referrals: Carin Mckeon DO [Primary Care Provider] - 3-5 Days Disposition Disposition: Home, Self Care
[2022-03-10] MEDS: Famotidine 200 MG/20 ML MDV 20 MG in 0.9% Normal Saline (Pres. free 8 ML 300 MG IV (16:59)
[2022-03-10 17:08] LABS: Hematocrit 48.5 % (37-47); Hemoglobin 15.5 g/dL (12.0-15.0); Mean Corpuscular Hgb 30.6 pg (27.0-32.0); Mean Corpuscular Volume 95.8 fL (81-99); Mean Platelet Vol. 9.7 fl (6.2-12.0); Platelet Count 422 K/mm3 (150-450); RBC Distribution Width CV 13.8 % (11.6-14.6); Red Blood Count 5.06 M/mm3 (4.2-5.4); White Blood Count 13.7 K/mm3 (4.4-11.0)
[2022-03-10 17:26] LABS: ALB/GLOB Ratio 0.6 RATIO (0.9-2.4); AST(SGOT) 27 U/L (15-37); Alanine Aminotransfer ALT/SGPT 41 U/L (13-56); Albumin, Serum 2.9 g/dL (3.2-5.0); Alkaline Phosphatase 154 U/L (45-117); Anion Gap 7 (5-15); BUN 9 mg/dL (7-18); BUN/Creat Ratio 13.3 RATIO (10-20); Calcium,Total 10.4 mg/dL (8.5-10.1); Chloride 100 mmol/L (98-107); Creatinine, Serum 0.68 mg/dL (0.55-1.02); EST Glomerular Filtration Rate 88 mL/min (>60); Est Glom Filt Rate - Afr Amer 106 mL/min (>60); Estimated Creatinine Clearance 35.52 ml/min; Globulin 5.1 g/dL (2.2-4.2); Glucose 148 mg/dL (74-106); Lipase 125 U/L (73-393); Potassium 3.8 mmol/L (3.5-5.1); Sodium Level 137 mmol/L (136-145)
[2022-03-10 18:24] VITALS: RESP 16
[2022-03-10 18:28] LABS: Red Blood Cells-Urine 0 SEEN /hpf (0-5)
[2022-03-10 18:37] LABS: Color, Urine Amber (Yellow); Glucose, Dipstick Normal (Normal); Ketone-Dipstick 15 mg/dl (Negative); Leukocyte Esterase-Dipstick 25 /ul (Negative); Nitrite-Dipstick Negative (Negative); Occult Blood-Urine Negative /ul (Negative); Protein-Dipstick 30 mg/dl (Negative); Specific Gravity, Urine 1.025 (1.002-1.030); Urine Bilirubin Dipstick Negative (Negative); Urine Clarity Clear (Clear); Urine Urobilinogen Normal (Normal)
[2022-03-10 18:53] LABS: Bacteria 1+ /hpf (None Seen); Mucous, Urine 3+ /hpf (<or=2+); Yeast-Urine 2+ /hpf (None Seen)
[2022-03-10 18:54] LABS: Squamous Epithelial Cells - UA 5-10 SEEN /hpf (5-10); White Blood Cells 5-10 SEEN /hpf (0-5)
[2022-03-10 19:58] VITALS: BP 151/63; PULSE 72
== END 2022-03-10 20:00 | disposition skilled nursing facility (03) ==
PROVIDERS: Emergency Provider Emergency Medicine; PCP Internal Medicine; Visit Provider Emergency Medicine
DX: R10.13 Epigastric pain (principal); R11.0 Nausea; Z87.891 Personal history of nicotine dependence
CPT/HCPCS: 74176; 80053; 81001; 83690; 85027; 99283; A4216; J3490

== ENCOUNTER 2022-05-21 16:13 | Emergency (ER) | payer MEDICARE, OTHER, SELFPAY ==
[2018-12-14 15:07] VITALS: BMI 33.4
[2022-05-21 16:14] VITALS: BP 163/59; PULSE 69; RESP 18; TEMP 36.5; O2SAT 97; BMI 34.3
[2022-05-21 16:33] VITALS: O2SAT 97
--- NOTE | 2022-05-21 17:38 | CT_ITS ---
STUDY: CT BRAIN WITHOUT CONTRAST REASON FOR EXAM: Female, 86 years old. ALOC RADIATION DOSAGE (If Supplied By Facility): CTDIvol = ( 44.99 ) mGy, DLP = ( 796.11 ) mGycm TECHNIQUE: Transaxial CT imaging of the brain was performed without administration of intravenous contrast material. Individualized dose optimization techniques were used for this CT. COMPARISON: 02/02/2022 FINDINGS: Normal soft tissue structures. Normal calvarium. There is mild cerebral volume loss with widening of the extra-axial spaces and ventricular dilatation. There are areas of decreased attenuation within the white matter tracts of the supratentorial brain, consistent with microvascular disease changes. Normal basal ganglia and thalami. Normal brainstem. Normal cerebellum. There is no intracranial hemorrhage. There are no findings of an acute ischemic infarction. Normal visualized paranasal sinuses. Bilateral ocular lens replacements. CT/Brain/Head without Contrast IMPRESSION: No acute abnormal intracranial finding. Electronically Signed: Hiren Cao MD at 19:36 EST ,
--- NOTE | 2022-05-21 17:40 | EDS_ITS ---
HPI History of Present Illness Chief Complaint: Confusion Detail of Chief Complaint: Mental status change with hallucinations. Informant: patient and family Onset/Context/Timing Onset: Days Context: Gradual Onset Timing: Continuous Current Severity: Mild Maximum Severity: Mild Narrative Narrative: 86-year-old female history of diabetes and hypertension. Family's notice of mental status change last several days. She is fallen twice in the last 24 hours. 1 daughter states that she often gets this way when she has urinary tract infections. She is not on any blood thinners. When she fell they believe she did hit her head but had no LOC. They deny any recent nausea or vomiting. She has had loose stools but has a history of irritable bowel. Prior similar symptoms: Yes Recent Illness/Hospitalization: No PFSH PFSH Medical History abnormal ultrasound right breast Acute bronchitis due to Haemophilus influenzae Anxiety and depression Asthma Breast cancer, right (~11/2018) Cancer Chronic obstructive pulmonary disease (COPD) Diabetes Diabetes mellitus, type II Difficulty swallowing Elevated liver enzymes GERD (gastroesophageal reflux disease) HLD (hyperlipidemia) HTN (hypertension) Hx: UTI (urinary tract infection) Hypothyroidism Irritable bowel Kidney disease Obesity (BMI 30-39.9) Home Medications aspirin 81 mg tablet,delayed release 81 mg PO QHS HRT 07/10/15 [History Last Taken 10/02/21] atenolol 100 mg tablet 100 mg PO DAILY bp 07/10/15 [History Last Taken 10/02/21] levothyroxine 112 mcg tablet 112 mcg PO MOTUWETHFR THYROID 07/10/15 [History Last Taken 10/02/21] levothyroxine 112 mcg tablet 224 mcg PO SUSA THYROID 07/10/15 [History Last German en 09/29/21] montelukast 10 mg tablet 10 mg PO QHS ALLERGY 07/10/15 [History Last Taken 10/02/21] gabapentin 300 mg capsule 300 mg PO BID NERVE PAIN 02/16/17 [History Last Taken 10/02/21] duloxetine 30 mg capsule,delayed release 30 mg PO BID DEPRESSION 07/08/18 [History Last Taken 07/29/19] amlodipine 2.5 mg tablet 2.5 mg PO DAILY BP 07/29/19 [History Last Taken 10/02/21] cholecalciferol (vitamin D3) 50 mcg (2,000 unit) chewable tablet 8,000 unit PO DAILY SUPPLEMENT 07/29/19 [History Last Taken 10/02/21] clonidine HCl 0.1 mg tablet 0.1 mg PO DAILY BP 07/29/19 [History Last Taken 10/02/21] loperamide 2 mg capsule 2 mg PO TID PRN diarrhea' 08/08/20 [History Last Taken Unknown] omeprazole 40 mg capsule,delayed release 40 mg PO BID gerd 10/03/21 [History Last Taken 10/02/21] dicyclomine 10 mg capsule 10 mg PO Q6H PRN PRN abdominal discomfort #20 CAPSULES 01/17/22 [Rx Last Taken Unknown] mometasone 50 mcg/actuation nasal spray 2 spray intranasal DAILY nasal spray 02/02/22 [History Last Taken Unknown] apixaban 2.5 mg tablet (Eliquis) 2.5 mg PO BID #30 tabs 02/04/22 [Rx Last Taken Unknown] ascorbic acid (vitamin C) 500 mg tablet 1,000 mg PO QHS #30 tabs 02/04/22 [Rx Last Taken Unknown] doxycycline hyclate 100 mg tablet 100 mg PO BID #9 tabs 02/04/22 [Rx Last Taken Unknown] fexofenadine 180 mg tablet 180 mg PO QHS PRN allergic rhinits #3 tabs 02/04/22 [Rx Last Taken 10/02/21] insulin lispro 100 unit/mL subcutaneous pen (Humalog KwikPen (U-100) Insulin) See Protocol subcut Q4 #0 mL 02/04/22 [Rx Last Taken Unknown] isosorbide dinitrate 10 mg tablet 10 mg PO TIDCM #0 tabs 02/04/22 [Rx Last Taken Unknown] methenamine hippurate 1 gram tablet 1 g PO QHS #0 tabs 02/04/22 [Rx Last Taken Unknown] vitamin E (dl, acetate) 180 mg (400 unit) capsule 400 units PO DAILY #0 caps 02/04/22 [Rx Last Taken Unknown] hydrocodone-acetaminophen 5-325mg 5mg-325mg 1 tab PO Q6H PRN pain 3 days #12 tabs 03/10/22 [Rx Last Taken Unknown] ondansetron 4 mg disintegrating tablet 4 mg PO Q6H #10 tabs 03/10/22 [Rx Last Taken Unknown] Allergy/AdvReac Type Severity Reaction Status Date / Time hydrocodone bitartrate AdvReac Other Verified 05/21/22 16:17 [From Vicodin] oxycodone HCl [From Percocet] AdvReac Other Verified 05/21/22 16:17 tramadol AdvReac Other Verified 05/21/22 16:17 Family History Brother Breast cancer Kidney disease Heart disease Father Heart disease Surgical History history laminectomy with decompression History of cholecystectomy History of laparoscopic cholecystectomy History of left mastectomy History of right mastectomy (~11/2018) history partial right oophorectomy Status post left partial knee replacement Social History Smoking Status: Former smoker alcohol intake: never substance use type: does not use ROS ROS ED ROS Narrative Mental status change. Review of Systems ROS Unobtainable: Denies due to encephalopathy Constitutional Constitutional ED: Denies chills or fever(s) Eyes Eyes: Denies blurry vision ENT ENT ED: Denies ear pain Cardiovascular Cardiovascular: Denies chest pain Respiratory/Chest Respiratory/Chest: Denies cough or dyspnea Gastrointestinal Gastrointestinal: Denies abdominal pain Genitourinary Genitourinary ED: Reports dysuria; Denies hematuria Musculoskeletal Musculoskeletal: Denies arthralgias or back pain Integumentary Denies abscess Neurologic Neurologic: Denies headache(s) Psychiatric Psychiatric: Denies anxiety Endocrine Endocrinology: Denies cold intolerance Hematologic/Lymphatic Hematologic/Lymphatic: Reports none Allergic/Immunologic Allergic/Immunologic ED: Denies mouth swelling or tongue swelling EXAM Physical Exam Narrative Exam Narrative: 86-year-old female no acute distress. Daughter is at bedside. H EENT exam pupils round reactive light. Moist mucous membranes. No facial droop. No significant head trauma no tenderness or hematomas. Neck nontender. Back nontender. Lungs are clear equal symmetrical. Heart regular rhythm rate about 70 no murmur. Chest wall nontender. Abdomen soft nontender. Moving all 4 extremities. 5-5 television installer strength. Dorsi plantarflexion intact. Neurologically she is awake and alert. She answers questions and follows commands but she is confused she does not know the day nor the month nor the year. Const Vital Signs: 05/21/22 16:14 05/21/22 16:33 05/21/22 18:28 Temperature 97.7 F L Temperature Source Temporal Pulse Rate 69 78 Respiratory Rate 18 17 Blood Pressure 163/59 H 134/57 H Blood Pressure Mean 93 82 Pulse Ox 97 97 99 Oxygen Delivery Method Room Air Room Air Room Air 05/21/22 20:13 Temperature Temperature Source Pulse Rate 62 Respiratory Rate 17 Blood Pressure 138/48 H Blood Pressure Mean 78 Pulse Ox 94 Oxygen Delivery Method Positive well nourished, well developed and obese; Negative for cachectic, contractures or unkempt General Appearance ED: well developed and NAD; Negative for unkempt, cachectic, contractures, cyanotic, diaphoretic or pallor Nutritional Appearance: obese; Negative for cachectic HEENT Reports moist mucous membranes Negative for trauma or tenderness Eyes PERRL and EOMs intact bilaterally General Eye ED: Negative for pale conjunctiva or scleral icterus Neck no lymphadenopathy, supple and no JVD General: Negative for tenderness Lymph Lymphatic: Negative for other Chest Wall Negative for inspection of chest normal or palpation of chest normal Chest: Negative for other Resp normal respiratory effort and clear to auscultation bilaterally Effort and Inspection: Negative for retractions Auscultation: Negative for rales, rhonchi or wheezes Cardio regular rate, regular rhythm, S1 normal heart sound, S2 normal heart sound and no murmurs Palpation: Negative for palpable S3 Rate: Negative for bradycardia Rhythm: Negative for abnormal rhythm GI normal to inspection, nondistended, normoactive bowel sounds, non-tender, non- distended and no masses Inspection: Negative for abdominal distention Auscultation: normoactive bowel sounds Palpation: soft; Negative for tender or guarding Back/Spine no CVA tenderness General Back: Negative for CVA tenderness or other Cervical Spine: Negative for cervical spine tenderness Thoracic Spine / Upper Back: Negative for thoracic spinal tenderness Lumbar Spine / Lower Back: Negative for lumbar spinal tenderness Extremity normal to inspection General Extremety ED: Negative for edema or tenderness General Extremity: Negative for edema Neuro No oriented x3 and CN's II-XII intact bilaterally Sensorium / Orientation: alert and orientation impaired; Negative for lethargic or stuporous Motor Exam: strength 5/5 throughout Psych mental status grossly normal Appearance: Negative for unkempt Attitude: No agitated Mood & Affect: Negative for depressed, anxious or tearful Skin no rashes or lesions noted and no wounds General Skin Exam: Negative for jaundice or pallor Rashes: No rashes noted Trauma: Negative for abrasion Wounds: Negative for wounds noted MDM MDM MDM Narrative Medical decision making narrative: 86-year-old mental status change. She will undergo a CAT scan with screening labs and urinalysis this could be from infection versus electrolyte abnormalities versus an acute intracranial event. Clinically I do not think it is a stroke. Repeat exam at 8:34 PM patient doing well. Awake and alert. Both daughters are bedside. Patient and daughters are both comfortable being discharged home. Outpatient follow-up with her primary care physician Dr. Carin Mckeon. Lab Data Attestation: I reviewed the patient's lab results. Lab results narrative: CBC shows a count of 7 H&H 12.9 and 40. Platelets 260. Electrolytes show a gap of 4 normal BUN and creatinine. Liver enzymes unremarkable. Glucose 110. UA is negative. No white cells no nitrites no bacteria. CAT scan of the brain shows chronic changes. Chest x-ray chronic changes no acute process. Labs: Laboratory Results - last 24 hr 05/21/22 05/21/22 05/21/22 17:45 17:45 18:23 WBC 7.3 RBC 4.36 Hgb 12.9 Hct 40.2 MCV 92.2 MCH 29.6 MCHC 32.1 RDW Std Deviation 46.1 H RDW Coeff of Sravan 13.6 Plt Count 260 MPV 9.5 Immature Gran % (Auto) 0.300 Neut % (Auto) 59.7 Lymph % (Auto) 28.2 Lucas % (Auto) 9.6 Eos % (Auto) 1.9 Baso % (Auto) 0.3 Absolute Neuts (auto) 4.4 Absolute Lymphs (auto) 2.06 Nucleated RBC % 0 Sodium 138 Potassium 4.1 Chloride 106 Carbon Dioxide 28.0 Anion Gap 4 L BUN 12 Creatinine 0.92 Estim Creat Clear Calc 38.61 Est GFR (MDRD) Af Amer 75 Est GFR (MDRD) Non-Af 62 BUN/Creatinine Ratio 13.0 Glucose 110 H Calcium 9.8 Total Bilirubin 0.30 AST 17 ALT 15 Alkaline Phosphatase 88 Total Protein 6.9 Albumin 3.1 L Globulin 3.8 Albumin/Globulin Ratio 0.8 L Urine Color Yellow Urine Clarity Clear Urine pH 5.0 Ur Specific [place] 1.010 Urine Protein Negative Urine Glucose (UA) Normal Urine Ketones Negative Urine Occult Blood Negative Urine Nitrite Negative Urine Bilirubin Negative Urine Urobilinogen Normal Ur Leukocyte Esterase 100 H Urine RBC 0 SEEN Urine WBC 0-5 SEEN Ur Squamous Epith Cells 0 SEEN Urine Bacteria 0 SEEN Urine Mucus 0 SEEN Radiography Chest X-Ray - ED: 1 View, Read by ED Physician, Read by Radiologist, Heart, Lungs, Mediastinum, Bony Structures, No Acute Disease and Chronic Changes Diagnostic Testing: Clinical Impression(s) from Imaging Studies Brain CT 05/21/22 17:38 IMPRESSION: No acute abnormal intracranial finding. Electronically Signed: Hiren Cao MD at 19:36 EST , Chest X-Ray 05/21/22 18:48 IMPRESSION: No acute abnormal cardiopulmonary finding. Electronically Signed: Hiren Cao MD at 19:17 EST , Chest x-ray, portable, single view interpreted by myself and the radiologist shows no acute abnormality. Normal cardiac silhouette. No infiltrate. Discharge Plan Triage Chief Complaint: Confusion ED Provider: Ernesto Valero Dx/Rx/DC Orders Clinical Impression: Fall, Altered level of consciousness, History of diabetes mellitus Instructions: ED ALOC Prescriptions: No Action atenolol 100 MG tablet 100 mg PO DAILY aspirin 81 MG tablet 81 mg PO QHS montelukast 10 MG tablet 10 mg PO QHS levothyroxine 112 MCG tablet 224 mcg PO SUSA Label Comments: thursday levothyroxine 112 MCG tablet 112 mcg PO MOTUWETHFR gabapentin 300 MG capsule 300 mg PO BID duloxetine 30 MG capsule 30 mg PO BID clonidine HCl 0.1 MG tablet 0.1 mg PO DAILY amlodipine 2.5 MG tablet 2.5 mg PO DAILY cholecalciferol (vitamin D3) 2,000 UNIT tablet,chewable 8,000 unit PO DAILY loperamide 2 MG capsule 2 mg PO TID PRN (Reason: diarrhea') omeprazole 40 mg Capsule,Delayed Release(Dr/Ec) 40 mg PO BID dicyclomine 10 mg capsule 10 mg PO Q6H PRN PRN (Reason: abdominal discomfort) Qty: 20 0RF mometasone 50 mcg/actuation [place],Non-Aerosol 2 spray INTRANASAL DAILY Rx Instructions: administer into each nostril isosorbide dinitrate 10 mg Tablet 10 mg PO TIDCM Qty: 0 0RF doxycycline hyclate 100 mg tablet 100 mg PO BID Qty: 9 0RF methenamine hippurate 1 gram Tablet 1 g PO QHS Qty: 0 0RF ascorbic acid (vitamin C) 500 mg Tablet 1,000 mg PO QHS Qty: 30 0RF insulin lispro [Humalog KwikPen Insulin] 100 unit/mL Insulin Pen See Protocol subcut Q4 Qty: 0 0RF Protocol: 3. Sliding Scale Insulin Med Dosing Condition: 150-189 mg/dl = 1 unit Condition: 190-229 mg/dl = 2 units Condition: 230-269 mg/dl = 3 units Condition: 270-309 mg/dl = 4 units Condition: 310-349 mg/dl = 5 units Condition: 350-399 mg/dl = 6 units Condition: 400-449 mg/dl = 7 units Condition: Greater than 449 call physician Protocol Text: - Use for Total Daily Dose of Insulin 37-55 units - Obsese, infected, or steroid patients MEDIUM DOSING ALGORITHIM vitamin E (dl, acetate) 180 mg (400 unit) Capsule 400 units PO DAILY Qty: 0 0RF Eliquis 2.5 mg tablet 2.5 mg PO BID Qty: 30 0RF Rx Instructions: 2 weeks for DVT prophylaxis for Covid infection fexofenadine 180 MG tablet 180 mg PO QHS PRN (Reason: allergic rhinits) Qty: 3 0RF hydrocodone-acetaminophen 5-325 mg tablet 1 tab PO Q6H PRN (Reason: pain) 3 Days Qty: 12 0RF ondansetron 4 mg tablet,disintegrating 4 mg PO Q6H Qty: 10 0RF Primary Care Provider: Carin Mckeon Referrals: Carin Mckeon, [Primary Care Provider] - 3-5 Days Activity Restrictions/Additional Instructions: Labs, urine, chest x-ray and CAT scan all were unremarkable today. No specific cause for her symptoms. Follow-up with her primary care physician to ensure she is improving. Disposition Disposition: Home, Self Care
[2022-05-21 17:55] LABS: Absolute Lymphocyte Count 2.06 X10^3/uL (0.83-4.51); Absolute Neutrophil Count 4.4 X10^3/uL (2.0-7.7); Basophil# 0.02 X10^3/uL; Basophil% 0.3 % (0-1); Eosinophil# 0.14 X10^3/uL; Eosinophils% 1.9 % (0-5); Hematocrit 40.2 % (37-47); Hemoglobin 12.9 g/dL (12.0-15.0); Lymphocyte # 2.06 X10^3/ul (0.83-4.51); Lymphocyte % 28.2 % (19-41); Mean Corp Hgb Conc 32.1 g/dL (32-36); Mean Corpuscular Hgb 29.6 pg (27.0-32.0); Mean Corpuscular Volume 92.2 fL (81-99); Mean Platelet Vol. 9.5 fl (6.2-12.0); Monocyte% 9.6 % (0-10); NRBC Flagged by Analyzer 0 % (0-5); Neutrophil # 4.37 X10^3/uL (2.7-7.7); Neutrophil % 59.7 % (47-70); Platelet Count 260 K/mm3 (150-450); RBC Distribution Width CV 13.6 % (11.6-14.6); RBC Distribution Width SD 46.1 fl (35.1-43.9); Red Blood Count 4.36 M/mm3 (4.2-5.4); White Blood Count 7.3 K/mm3 (4.4-11.0)
[2022-05-21 18:19] LABS: ALB/GLOB Ratio 0.8 RATIO (0.9-2.4); AST(SGOT) 17 U/L (15-37); Alanine Aminotransfer ALT/SGPT 15 U/L (13-56); Albumin, Serum 3.1 g/dL (3.2-5.0); Alkaline Phosphatase 88 U/L (45-117); Anion Gap 4 (5-15); BUN 12 mg/dL (7-18); Calcium,Total 9.8 mg/dL (8.5-10.1); Chloride 106 mmol/L (98-107); Creatinine, Serum 0.92 mg/dL (0.55-1.02); EST Glomerular Filtration Rate 62 mL/min (>60); Est Glom Filt Rate - Afr Amer 75 mL/min (>60); Estimated Creatinine Clearance 38.61 ml/min; Globulin 3.8 g/dL (2.2-4.2); Glucose 110 mg/dL (74-106); Potassium 4.1 mmol/L (3.5-5.1); Protein, Total 6.9 g/dL (6.4-8.2); Sodium Level 138 mmol/L (136-145)
[2022-05-21 18:26] LABS: Bacteria 0 SEEN /hpf (None Seen); Mucous, Urine 0 SEEN /hpf (<or=2+); Red Blood Cells-Urine 0 SEEN /hpf (0-5); Squamous Epithelial Cells - UA 0 SEEN /hpf (5-10)
[2022-05-21 18:28] VITALS: BP 134/57; PULSE 78; RESP 17; O2SAT 99
[2022-05-21 18:42] LABS: Color, Urine Yellow (Yellow); Glucose, Dipstick Normal (Normal); Ketone-Dipstick Negative (Negative); Leukocyte Esterase-Dipstick 100 /ul (Negative); Nitrite-Dipstick Negative (Negative); Occult Blood-Urine Negative /ul (Negative); Protein-Dipstick Negative (Negative); Urine Bilirubin Dipstick Negative (Negative); Urine Clarity Clear (Clear); Urine Urobilinogen Normal (Normal)
--- NOTE | 2022-05-21 18:48 | RAD_ITS ---
STUDY: X-RAY CHEST REASON FOR EXAM: Female, 86 years old. MS change TECHNIQUE: Portable, upright, AP chest x-ray COMPARISON: 02/02/2022 FINDINGS: The lungs are clear and expanded. There is no demonstrated pleural abnormality. Normal size heart. Normal mediastinum and farrah. Normal visualized pulmonary arteries. Normal visualized aortic arch and descending thoracic aorta. Spine stimulator leads noted. There is no demonstrated abnormality of the visualized soft tissue structures of the upper abdomen. RAD/Chest 1 View (Portable) IMPRESSION: No acute abnormal cardiopulmonary finding. Electronically Signed: Hiren Cao MD at 19:17 EST ,
[2022-05-21 19:06] LABS: White Blood Cells 0-5 SEEN /hpf (0-5)
[2022-05-21 20:13] VITALS: BP 138/48; PULSE 62; RESP 17; O2SAT 94
== END 2022-05-21 21:00 | disposition home or self-care (01) ==
PROVIDERS: Emergency Provider Emergency Medicine; PCP Internal Medicine; Visit Provider Emergency Medicine
DX: R41.82 Altered mental status, unspecified (principal); J44.9 Chronic obstructive pulmonary disease, unspecified; E11.9 Type 2 diabetes mellitus without complications; N28.9 Disorder of kidney and ureter, unspecified; E66.9 Obesity, unspecified; I10 Essential (primary) hypertension; E78.5 Hyperlipidemia, unspecified; R44.3 Hallucinations, unspecified; R30.0 Dysuria; Z87.891 Personal history of nicotine dependence
CPT/HCPCS: 70450; 71045; 80053; 81001; 85025; 96360; 99285; J7030; P9612

== ENCOUNTER → 2022-09-23 | Outpatient (CLI) | payer MEDICARE, OTHER, SELFPAY ==
[2018-12-14 15:07] VITALS: BMI 33.4
[2022-09-23 12:37] LABS: Hematocrit 42.9 % (37-47); Hemoglobin 13.4 g/dL (12.0-15.0); Mean Corp Hgb Conc 31.2 g/dL (32-36); Mean Corpuscular Hgb 29.8 pg (27.0-32.0); Mean Corpuscular Volume 95.3 fL (81-99); Mean Platelet Vol. 10.2 fl (6.2-12.0); Platelet Count 331 K/mm3 (150-450); RBC Distribution Width CV 13.8 % (11.6-14.6); RBC Distribution Width SD 48.2 fl (35.1-43.9); White Blood Count 6.6 K/mm3 (4.4-11.0)
[2022-09-23 13:02] LABS: Vitamin B12 > 2000 pg/mL (211-911)
[2022-09-23 14:05] LABS: ALB/GLOB Ratio 0.8 RATIO (0.9-2.4); AST(SGOT) 33 U/L (15-37); Alanine Aminotransfer ALT/SGPT 17 U/L (13-56); Albumin, Serum 3.1 g/dL (3.2-5.0); Alkaline Phosphatase 110 U/L (45-117); Anion Gap 8 (5-15); BUN 9 mg/dL (7-18); BUN/Creat Ratio 12.8 RATIO (10-20); Calcium,Total 9.5 mg/dL (8.5-10.1); Chloride 106 mmol/L (98-107); Cholesterol 124 mg/dL (200); EST Glomerular Filtration Rate 84 mL/min (>60); Est Glom Filt Rate - Afr Amer 101 mL/min (>60); Globulin 3.7 g/dL (2.2-4.2); Glucose 97 mg/dL (74-106); High Density Lipoprotein 50 mg/dL; Potassium 4.3 mmol/L (3.5-5.1); Protein, Total 6.8 g/dL (6.4-8.2); Sodium Level 136 mmol/L (136-145); T4 Free Direct 1.77 ng/dL (0.76-1.46); Thyroid Stim Hormone (TSH) 0.45 uIU/mL (0.358-3.74); Triglycerides 184 mg/dL; Uric Acid 6.9 mg/dL (2.6-6.0); Very Low Density Lipoprotein 37 mg/dL (5-40)
[2022-09-25 21:16] LABS: Vitamin B1, Thiamine 79.7 nmol/L (66.5-200.0)
== END | disposition home or self-care (01) ==
LOC: MTLAB 10:51
PROVIDERS: PCP Internal Medicine; Referring Provider Psychiatry & Neurology Neurology; Visit Provider Psychiatry & Neurology Neurology
DX: G62.9 Polyneuropathy, unspecified (principal); G31.84 Mild cognitive impairment of uncertain or unknown etiology; F41.8 Other specified anxiety disorders; R74.8 Abnormal levels of other serum enzymes; I67.9 Cerebrovascular disease, unspecified
CPT/HCPCS: 36415; 80053; 80061; 82607; 82746; 83883; 84425; 84439; 84443; 84550; 85027

== ENCOUNTER → 2022-10-20 | Outpatient (CLI) | payer MEDICARE, OTHER, SELFPAY ==
[2018-12-14 15:07] VITALS: BMI 33.4
--- NOTE | 2022-10-20 15:34 | MRI_ITS ---
EXAM: MR HEAD WITHOUT AND WITH INTRAVENOUS CONTRAST CLINICAL INDICATION: None provided. Progressive gait disorder; cerebrovascular disease TECHNIQUE: Multiplanar and multisequence MR images of the brain were obtained without and with intravenous contrast. CONTRAST: clariscan 18ml iv COMPARISON: Head CT May 21, 2022 FINDINGS: ARTIFACTS: Mild motion artifact, especially on the unenhanced images. BRAIN AND EXTRA-AXIAL SPACES: Moderate cerebral volume loss, moderate confluent high signal intensity in the deep periventricular white matter on inversion recovery images. No intra- or extra-axial hemorrhage. No evidence of acute infarct. No intracranial mass or mass effect. There is preservation of the holliday/white matter interface. Posterior fossa structures are unremarkable. No hydrocephalus. Basal cisterns are patent. No restricted diffusion. SELLA: Unremarkable. Normal sella turcica, pituitary gland, infundibular stalk, optic chiasm and hypothalamus. AUDITORY SYSTEM: Unremarkable. The internal auditory canals are patent. BONES/JOINTS: Unremarkable. No discrete lytic or blastic abnormalities. SINUSES: Small mucous retention cyst in the left maxillary sinus. MASTOID AIR CELLS: Unremarkable as visualized. Clear. ORBITS: Unremarkable as visualized. Both globes, extraocular muscles, optic nerves and retrobulbar fat appear unremarkable. VASCULATURE: Unremarkable signal voids at the dural venous sinuses. MRI/Brain W/WO Contrast IMPRESSION: Moderate chronic changes. No acute abnormality identified. Mild motion. Electronically Signed: Trupti Lees MD at 23:17 EDT ,
== END | disposition home or self-care (01) ==
LOC: MRI 15:23
PROVIDERS: PCP Internal Medicine; Referring Provider Psychiatry & Neurology Neurology; Visit Provider Psychiatry & Neurology Neurology
DX: R26.89 Other abnormalities of gait and mobility (principal); D32.0 Benign neoplasm of cerebral meninges; I67.9 Cerebrovascular disease, unspecified
CPT/HCPCS: 70553; A9575

== ENCOUNTER → 2022-10-22 | Outpatient (CLI) | payer MEDICARE, OTHER, SELFPAY ==
[2018-12-14 15:07] VITALS: BMI 33.4
--- NOTE | 2022-10-22 16:08 | MRI_ITS ---
EXAM: MR CERVICAL SPINE WITHOUT INTRAVENOUS CONTRAST CLINICAL INDICATION: Reported hx of cervical spinal stenosis; gait d/o -- Patient has implanted dorsal column stimulator, leg weakness TECHNIQUE: Multiplanar and multisequence MR images of the cervical spine without intravenous contrast were performed. COMPARISON: No relevant prior studies available. FINDINGS: VERTEBRAE: Unremarkable. Normal vertebral bodies and posterior elements. Normal alignment. Normal craniocervical junction and cervicothoracic junction. No spondylolisthesis. There is preservation of the normal cervical lordosis. SPINAL CORD: Unremarkable in signal and morphology. SOFT TISSUES: Unremarkable. No prevertebral soft tissue swelling. LYMPH NODES: Unremarkable. There is no cervical adenopathy. DISCS/SPINAL CANAL/NEURAL FORAMINA: C2-C3: Unremarkable. Normal disc height and morphology. Normal spinal canal. Normal neuroforamina. C3-C4: Large right central/right paracentral disc osteophyte complex causing moderate focal stenosis of the right side of the central spinal canal with compression of the right side of the cervical cord without cord edema. Normal neuroforamina. C4-C5: Mild central disc osteophyte complex causing mild focal stenosis of the central spinal canal and minimal mass effect on the cervical cord without cord edema. Normal neuroforamina. C5-C6: Mild broad-based disc osteophyte complex causing mild central canal stenosis with minimal mass effect on the ventral aspect of the cervical cord without cord edema. Normal neuroforamina. C6-C7: Mild central discussed by complex causing minimal central canal stenosis and minimal mass effect on the ventral aspect of the cervical cord. Uncovertebral joint hypertrophy on the right causing moderate right neural foraminal narrowing. C7-T1: Unremarkable. Normal disc height and morphology. Normal spinal canal. Normal neuroforamina. MRI/Spine Cervical (Routine) IMPRESSION: 1. Large right central/right paracentral disc osteophyte complex at C3/4, causing moderate focal stenosis of the right side of the central spinal canal with compression of the right side of the cervical cord without cord edema. 2. Other multilevel degenerative changes as detailed above. Electronically Signed: Khadar Bonilla MD at 23:59 EDT ,
== END | disposition home or self-care (01) ==
LOC: MRI 15:27
PROVIDERS: PCP Internal Medicine; Referring Provider Psychiatry & Neurology Neurology; Visit Provider Psychiatry & Neurology Neurology
DX: M48.02 Spinal stenosis, cervical region (principal); R26.89 Other abnormalities of gait and mobility; M54.2 Cervicalgia
CPT/HCPCS: 72141

== ENCOUNTER → 2022-10-24 | Outpatient (CLI) | payer MEDICARE, OTHER, SELFPAY ==
[2018-12-14 15:07] VITALS: BMI 33.4
--- NOTE | 2022-10-24 15:29 | MRI_ITS ---
STUDY: MRI LUMBAR SPINE WITH AND WITHOUT CONTRAST REASON FOR EXAM: Female, 86 years old patient with chronic low back pain (LBP) and bilateral lower extremity (BLE) radiculopathy. History of lumbar surgery. Patient has implanted dorsal column stimulator. TECHNIQUE: Standardized fat and water weighted pulse sequences were obtained in the sagittal and axial planes. 19 ml of IV Clariscan was administered for the contrast portion of the examination. COMPARISON: None FINDINGS: T12-L1: Normal endplates. Normal disc height, signal and morphology. Normal bilateral facet joints. Normal central canal and bilateral lateral recesses. Normal bilateral intervertebral neural foramina. There is straightening of the normal lumbar lordosis. There is no substantial scoliosis. Normal conus medullaris that terminates at the L1 level. L1-2: There is mild annular disk bulge and osteophyte complex. There is mild degenerative arthropathy of the facet joints. Bilateral neuroforamina are narrowed without MR evidence for nerve impingement. There is no appreciable acquired central canal stenosis. L2-3: There is a broad central disc protrusion. There is mild degenerative arthropathy of the facet joints. There is slight thickening of ligamentum flavum. Neural foramina are narrowed without evidence for nerve impingement. There is increased epidural fat with mild compression of the thecal sac. L3-4: There is moderately large annular disk bulge and osteophyte complex. There is moderately severe degenerative arthropathy of the facet joints. Bilateral neuroforamina are narrowed without MR evidence for nerve impingement. There is mild acquired bony central canal stenosis. There is increased epidural fat at this level which also compresses the thecal sac moderately. L4-5: There is a broad central disc protrusion. There is narrowing of the disc. The patient appears to have had laminectomies at L5. Neural foramina are severely narrowed with potential impingement of the right L4 at the neuroforamen. There is no central acquired canal stenosis. L5-S1: There is a broad central disc protrusion. There is narrowing of the disc. There is moderate degenerative arthropathy of facet joints. Patient has had laminectomies of L5. There is no central acquired canal stenosis. Neural foramina are moderately narrowed without definite nerve impingement. Normal visualized sacral ala. 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 There is moderate paraspinal muscular atrophy. There is no demonstrated abnormal enhancement. MRI/Spine Lumbar W/WO Contrast IMPRESSION: 1. 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 2. Epidural lipomatosis compresses the thecal sac at L2-3 and L3-4. Electronically Signed: Althea Francis MD at 6:12 EDT ,
== END | disposition home or self-care (01) ==
LOC: MRI 15:23
PROVIDERS: PCP Internal Medicine; Referring Provider Psychiatry & Neurology Neurology; Visit Provider Psychiatry & Neurology Neurology
DX: M54.16 Radiculopathy, lumbar region (principal); R26.89 Other abnormalities of gait and mobility
CPT/HCPCS: 72158; A9575

== ENCOUNTER 2022-12-11 12:30 | Outpatient (RCR) | payer MEDICARE, OTHER, SELFPAY ==
[2018-12-14 15:07] VITALS: BMI 33.4
--- NOTE | 2022-10-06 15:49 | HP.PTEVAL_ITS ---
Patient's Visit Information KARRIE DAVID is a 86 year old F referred to Physical Therapy by Dr. Zach Williamson MD with a diagnosis of LOW BACK PAIN, LUMBAR RADIC, GAIT DISORDER AND CVD.. Date of Evaluation: 10/06/22 Physical Therapist: Rhonda Vergara, PT, Cert MDT - Visit Plan Frequency: 2-3x /Week Duration: 4-6 Weeks Plan: *HIGH FALL RISK. USE GAIT BELT*. GAIT AND BALANCE TRAINING. POSTURE CORRECTION/STRENGTHENING, INSTRUCTION IN APPROPRIATE BODY MECHANICS AND ACTIVITY MODIFICATIONS. DLS WITH A NEUTRAL SPINE. PIOTR LE ROM, STRETCHING AND STRENGTHENING. HEP INSTRUCTION. - Subjective Present symptoms: LOW BACK PAIN. LE WEAKNESS AND FALLING SINCE CHILDHOOD. NO PAIN IN SITTING. LAST FALL WAS AT [facility] IN JAN 2022 - NO FX'S. Pain Scale: WORSE 8/10, LEAST 0/10. Currently: 0/10. Is it getting better, worse or staying the same: STAYING THE SAME. Commenced as a result of: NO APPARENT REASON. Worse: STANDING UP AND TRYING TO WALK. Better: SITTING AND LYING. Disturbed sleep: NO. Previous history/Previous treatment: PHYSICAL THERAPY OUT AT [facility] JAN TO APR 2022. HOME HEALTH PHYSICAL THERAPY UNTIL ABOUT JUN 2022. HAS BEEN TRYING TO WALK WITH WALKER AT HOME SINCE THEN. NOT CURRENTLY DOING HEP. PAIN MGMT: INJECTIONS THAT HAVEN'T HELPED. STIMULATOR PLACED OVER A YEAR AGO - IT HELPS. Gait: WALKING IN HOUSE WITH WALKER BY HERSELF BUT IT HURTS MY BACK. Imaging: MRI OF BACK PENDING OCT 20 2022. OTHER: PATIENTS GRAND-DAUGHTER JOSÉ MIGUEL BROUGHT PATIENT TO PT TODAY AND REPORTS PATIENT WALKED WITH WALKER BY HERSELF OUT OF HOUSE AND DOWN 2 STEPS WITH HELP OF HER THE IN W/C TO CAR. THEN PATIENT TRANSFERRED HERSELF OUT OF CAR INTO W/C AND GRAND- DAUGHTER WHEELED HER IN. - Objective Sitting/Standing Posture: POOR. SPINE APPEARS SCOLIOTIC AND VERY FORWARD FLEXED IN SITTING AND STANDING. Active Correction of posture: PATIENT ONLY MINIMALLY ABLE TO CORRECT POSTURE BUT NO C/O INCREASED PAIN TODAY UPON ATTEMPS. Other Observations: THIS PATIENT WAS BROUGHT BACK TO PT BY GRAND-DAUGHTER IN W/C. ABLE TO DEMONSTRATE INDEP GAIT IN TREATMENT ROOM WITH FWW BUT CG FOR SAFETY. Sensory deficit: PIOTR LE LIGHT TOUCH SENSATION GROSSLY INTACT AND SYMMETRICAL. ROM deficit: TIGHT PIOTR LE HIPS, KNEES AND ANKLES. Motor deficit: PIOTR LE STRENGTH GROSSLY 4-/5 WITH MMT'ING. Lumbar mvmt loss: flex - MOD. ext - SCOTT. R SG - SCOTT. L SG - DEMIAN. Core strength: POOR. Palpation: NO ACUTE LUMBAR TENDERNESS. OTHER: SEE TUG TEST RESULTS AND STS 30TEST RESULTS BELOW. PATIENTS GRAND-DAUGHTER PRESENT THROUGHOUT SESSION TODAY. PATIENT IS TALKATIVE BUT PLEASANT AND COOPERATIVE TO WORK WITH AND FOLLOWS COMMANDS WELL. - Balance/Special Test Scores Oswestry Low Back Score: 26 TUG Test Time Seconds: 94.93 30 Second Chair Rise Test Seconds: 3 - Goals Goal 1:: DECREASE C/O LB AND PIOTR LE SX'S WITH STANDING AND WALKING. Goal Time Frame: 4-6 Weeks Goal 2:: PATIENT WILL COMPLETE 6 STANDS IN 30 SECS TO DEMONSTRATE IMPROVED FUNCTIONAL STRENGTH Goal Time Frame: 4-6 Weeks Goal 3:: PATIENT WILL COMPLETE TUG IN < 60 SECS TO DEMONSTRATE IMPROVED GAIT STABILITY Goal Time Frame: 4-6 Weeks Goal 4:: PATIENT WILL AMBULATE 75 FEET WITH [facility] WITH SUPERVISION X 1 TO IMPROVE ACTIVITY TOLERANCE Goal 5:: PATIENT WILL BE INDEP WITH A HEP FOR CONTINUED IMPROVEMENT ONCE FORMAL PHYSICAL THERAPY CONCLUDES. - Anticipated Interventions Patient/Client Instruction: Educate patient on: Condition, Plan of Care, Risk Factors For the Purpose of:: To facilitate caregiver knowledge, To improve self management Therapeutic Exercise to Include: Strength training, Endurance training, Balance training, Body mechanics, Postural training, Flexibilty training, Gait and locomotor training, Neuromotor development, Dynamic Lumbar Stabilization For the Purpose of:: To decrease pain, To increase ROM, To improve muscle performance and motor function, To increase tolerance to activity/condition/position, To improve ability of physical actions for home/community/work/leisure, To improve gait and locomotor functions Thank you for the opportunity to evaluate your patient. For Medicare and Medicare HMO plans, please review the plan of care and approve it. It will need to be FAXED BACK to us at [phone] for Medicare purposes. For Medicare only, by signing this I certify the plan of care. Please let me know if there are questions or concerns regarding this plan of care. Physician Signature: Date:
--- NOTE | 2022-11-05 12:24 | HP.PTREVAL ---
Dr. Zach Barfield MD, It has been my pleasure to treat KARRIE DAVID over the last 8 visits for LOW BACK PAIN, LUMBAR RADIC, GAIT DISORDER AND CVD.. Please see the progress note below for an update on the physical therapy plan of care! Subjective: PATIENT REPORTS THERAPY IS HELPING BUT HER BACK PAIN ISN'T BETTER. GOING TO SEE DR. ALBARRAN TODAY. Objective/Function: PATIENT WAS SEEN TODAY FOR RE-ASSESSMENT OF PROGRESS TOWARD THE SET PT GOALS AND THE NEED FOR FURTHER PHYSICAL THERAPY VS READINESS FOR DISCHARGE. UPON EXAM TODAY: PATIENT HAS MADE SIGNIFICANT PROGRESS WITH PT BUT MAY BE ABLE TO PROGRESS BETTER WITH PT INCONJUNCTION WITH PAIN MGMT PROCEEDURES. SEE TUG TIME AND STS BELOW. Plan Plan: CONTINUE PT PER ORIG POC IF OK'D BY DR. ALBARRAN TODAY. DO NOT CONTINUE WITHOUT NEW ORDER. (OK TO CONTINUE WITH NEW ORDER FROM DR. BARFIELD TOO). *HIGH FALL RISK. USE GAIT BELT*. GAIT AND BALANCE TRAINING. POSTURE CORRECTION/STRENGTHENING, INSTRUCTION IN APPROPRIATE BODY MECHANICS AND ACTIVITY MODIFICATIONS. DLS WITH A NEUTRAL SPINE. PIOTR LE ROM, STRETCHING AND STRENGTHENING. HEP INSTRUCTION. Balance/Gait/Functional tests - Balance/Special Test Scores Oswestry Low Back Score: 28 TUG Test Time Seconds: 40.56 Tug Test: >30sec.=impaired mobility 30 Second Chair Rise Test Seconds: 8 Goals Goal 1:: DECREASE C/O LB AND PIOTR LE SX'S WITH STANDING AND WALKING. Goal Time Frame: 4-6 Weeks Goal Progress: Not Progressing Goal 2:: PATIENT WILL COMPLETE 6 STANDS IN 30 SECS TO DEMONSTRATE IMPROVED FUNCTIONAL STRENGTH Goal Time Frame: 4-6 Weeks Goal Progress: Goal Met Goal 3:: PATIENT WILL COMPLETE TUG IN < 60 SECS TO DEMONSTRATE IMPROVED GAIT STABILITY Goal Time Frame: 4-6 Weeks Goal Progress: Goal Met Goal 4:: PATIENT WILL AMBULATE 75 FEET WITH WW WITH SUPERVISION X 1 TO IMPROVE ACTIVITY TOLERANCE Goal Progress: Goal Met Goal 5:: PATIENT WILL BE INDEP WITH A HEP FOR CONTINUED IMPROVEMENT ONCE FORMAL PHYSICAL THERAPY CONCLUDES. Goal Progress: Not Progressing Goal 6:: NEW GOAL: INDEP HEP WITH HELP OF CARE-CLOTHING DESIGNER. Goal Time Frame: 4-6 Weeks Anticipated Interventions Patient/Client Instruction: Educate patient on: Condition, Plan of Care, Risk Factors For the Purpose of:: To facilitate caregiver knowledge, To improve self management Therapeutic Exercise to Include: Strength training, Endurance training, Balance training, Body mechanics, Postural training, Flexibilty training, Gait and locomotor training, Neuromotor development, Dynamic Lumbar Stabilization For the Purpose of:: To decrease pain, To increase ROM, To improve muscle performance and motor function, To increase tolerance to activity/condition/position, To improve ability of physical actions for home/community/work/leisure, To improve gait and locomotor functions Please do not hesitate to contact me at [phone] by phone or if you have questions or concerns regarding this new plan of care! Sincerely, Rhonda Vergraa, PT, Cert MDT
--- NOTE | 2022-12-11 13:07 | HP.PTDCSUM ---
Discharge Summary D/C summary: It has been my pleasure to treat KARRIE DAVID referred by Dr. Zach Williamson MD, with the diagnosis of LOW BACK PAIN, LUMBAR RADIC, GAIT DISORDER AND CVD. for a total of 16 visit(s). Discharge Date: 12/11/22 Please see the following information for a summary of their discharge status. Subjective Subjective: PATIENT REPORTS SHE WANTS TO TAKE A BREAK FROM PT. STATES SHE IS DOING HER EX'S IN THE MORNINGS AND SHE IS GOING TO HAVE A SHOT IN HER NECK. SHE STATES SHE WILL CONSIDER COMING BACK TO PT IN THE FUTURE AFTER SHE GETS INJECTION. PATIENT REPORTS SHE CONTINUES TO HAVE PAIN ALL OVER. Pain Bilateral Back: Pain Intensity (Out of 10): Unrated Overall Improvement % Improvement: 60 Objective Objective/Function: PATIENT WAS SEEN TODAY FOR RE-ASSESSMENT OF PROGRESS TOWARD THE SET PT GOALS AND THE NEED FOR FURTHER PHYSICAL THERAPY VS READINESS FOR DISCHARGE. PATIENT HAS IMPROVED WITH PT BUT IS NOT continuing TO IMPROVE. SHE WOULD LIKE TO STOP PT AND JUST CONTINUE WITH HER HOME EX'S AND SEE HOW SHE DOES WITH UPCOMING INJECTION BEFORE CONSIDERING MORE PT. SEE TUG TIME AND STS BELOW WHICH HAVE NOT CHANGED SIGNIFICANTLY SINCE LAST RE-CHECK AND [facility] SCORE HAS NOT CHANGED SIGNIFICANTLY EITHER. PATIENT REPORTS CARE-CLINICAL SERVICES ASSISTANT DOES NOT REALLY HELP HER WITH HOME EX'S BECAUSE SHE CAN DO THEM ON HER OWN. PATIENT COMMUNICATES/DEMO'S GOOD UNDERSTANDING OF HEP BELOW. Goals Goal 1:: DECREASE C/O LB AND PIOTR LE SX'S WITH STANDING AND WALKING. Goal Progress: Not Progressing Goal 2:: PATIENT WILL COMPLETE 6 STANDS IN 30 SECS TO DEMONSTRATE IMPROVED FUNCTIONAL STRENGTH Goal Progress: Goal Met Goal 3:: PATIENT WILL COMPLETE TUG IN < 60 SECS TO DEMONSTRATE IMPROVED GAIT STABILITY Goal Progress: Goal Met Goal 4:: PATIENT WILL AMBULATE 75 FEET WITH WW WITH SUPERVISION X 1 TO IMPROVE ACTIVITY TOLERANCE Goal Progress: Goal Met Goal 5:: PATIENT WILL BE INDEP WITH A HEP FOR CONTINUED IMPROVEMENT ONCE FORMAL PHYSICAL THERAPY CONCLUDES. Goal Progress: Goal Met Goal 6:: NEW GOAL: INDEP HEP WITH HELP OF CARE-CLINICAL SERVICES ASSISTANT. Goal Progress: Not Progressing Plan Plan: D/C AT PATIENTS REQUEST TO HEP. D/C Information d/c sentence: If there are questions or concerns regarding this patient's physical therapy, please feel free to call me at [phone]. Thank you for the referral of this patient. Sincerely, Rhonda Vergara, PT, Cert MDT Balance/Gait/Functional tests Balance/Special Test Scores Oswestry Low Back Score: 24 TUG Test Time Seconds: 40.23 Tug Test: >30sec.=impaired mobility 30 Second Chair Rise Test Seconds: 8
--- NOTE | 2022-12-15 09:36 | HP.PTDCSUM_ITS ---
Discharge Summary D/C summary: It has been my pleasure to treat KARRIE DAVID referred by Dr. Zach Williamson MD, with the diagnosis of LOW BACK PAIN, LUMBAR RADIC, GAIT DISORDER AND CVD. for a total of 16 visit(s). Discharge Date: 12/11/22 Please see the following information for a summary of their discharge status. Subjective Subjective: PATIENT REPORTS SHE WANTS TO TAKE A BREAK FROM PT. STATES SHE IS DOING HER EX'S IN THE MORNINGS AND SHE IS GOING TO HAVE A SHOT IN HER NECK. SHE STATES SHE WILL CONSIDER COMING BACK TO PT IN THE FUTURE AFTER SHE GETS INJECTION. PATIENT REPORTS SHE CONTINUES TO HAVE PAIN ALL OVER. Pain Bilateral Back: Pain Intensity (Out of 10): Unrated Overall Improvement % Improvement: 60 Objective Objective/Function: PATIENT WAS SEEN TODAY FOR RE-ASSESSMENT OF PROGRESS TOWARD THE SET PT GOALS AND THE NEED FOR FURTHER PHYSICAL THERAPY VS READINESS FOR DISCHARGE. PATIENT HAS IMPROVED WITH PT BUT IS NOT continuing TO IMPROVE. SHE WOULD LIKE TO STOP PT AND JUST CONTINUE WITH HER HOME EX'S AND SEE HOW SHE DOES WITH UPCOMING INJECTION BEFORE CONSIDERING MORE PT. SEE TUG TIME AND STS BELOW WHICH HAVE NOT CHANGED SIGNIFICANTLY SINCE LAST RE-CHECK AND [facility] SCORE HAS NOT CHANGED SIGNIFICANTLY EITHER. PATIENT REPORTS CARE-FLOWER SHOP LABORER/DESIGNER DOES NOT REALLY HELP HER WITH HOME EX'S BECAUSE SHE CAN DO THEM ON HER OWN. PATIENT COMMUNICATES/DEMO'S GOOD UNDERSTANDING OF HEP BELOW. Goals Goal 1:: DECREASE C/O LB AND PIOTR LE SX'S WITH STANDING AND WALKING. Goal Progress: Not Progressing Goal 2:: PATIENT WILL COMPLETE 6 STANDS IN 30 SECS TO DEMONSTRATE IMPROVED FUNCTIONAL STRENGTH Goal Progress: Goal Met Goal 3:: PATIENT WILL COMPLETE TUG IN < 60 SECS TO DEMONSTRATE IMPROVED GAIT STABILITY Goal Progress: Goal Met Goal 4:: PATIENT WILL AMBULATE 75 FEET WITH WW WITH SUPERVISION X 1 TO IMPROVE ACTIVITY TOLERANCE Goal Progress: Goal Met Goal 5:: PATIENT WILL BE INDEP WITH A HEP FOR CONTINUED IMPROVEMENT ONCE FORMAL PHYSICAL THERAPY CONCLUDES. Goal Progress: Goal Met Goal 6:: NEW GOAL: INDEP HEP WITH HELP OF CARE-FLOWER SHOP LABORER/DESIGNER. Goal Progress: Not Progressing Plan Plan: D/C AT PATIENTS REQUEST TO HEP. D/C Information d/c sentence: If there are questions or concerns regarding this patient's physical therapy, please feel free to call me at [phone]. Thank you for the referral of this patient. Sincerely, Rhonda Vergara, PT, Cert MDT Balance/Gait/Functional tests Balance/Special Test Scores Oswestry Low Back Score: 24 TUG Test Time Seconds: 40.23 Tug Test: >30sec.=impaired mobility 30 Second Chair Rise Test Seconds: 8
== END 2022-12-11 19:00 | disposition home or self-care (01) ==
LOC: PT 12:30
PROVIDERS: PCP Internal Medicine; Referring Provider Psychiatry & Neurology Neurology; Visit Provider Psychiatry & Neurology Neurology
DX: R26.89 Other abnormalities of gait and mobility (principal); M54.16 Radiculopathy, lumbar region; Z86.73 Personal history of transient ischemic attack (TIA), and cerebral infarction without residual deficits
CPT/HCPCS: 97110; 97162; 97164

== ENCOUNTER → 2023-01-22 | Outpatient (CLI) | payer MEDICARE, OTHER, SELFPAY ==
[2018-12-14 15:07] VITALS: BMI 33.4
[2023-01-22 12:36] LABS: Uric Acid 7.4 mg/dL (2.6-6.0)
[2023-01-26 14:08] LABS: Albumin 3.5 g/dL (2.9-4.4); Alpha-1-Globulins 0.2 g/dL (0.0-0.4); Alpha-2-Globulins 0.8 g/dL (0.4-1.0); Gamma Globulin 0.8 g/dL (0.4-1.8); Immunoglobulin A 280 mg/dL (64-422); Immunoglobulin G 846 mg/dL (586-1602); Immunoglobulin M 46 mg/dL (26-217); PROEL- TOTAL PROTEIN 6.4 g/dL (6.0-8.5)
== END | disposition home or self-care (01) ==
LOC: MTLAB 09:29
PROVIDERS: PCP Internal Medicine; Visit Provider Psychiatry & Neurology Neurology
DX: G62.9 Polyneuropathy, unspecified (principal)
CPT/HCPCS: 36415; 82784; 84165; 84550; 86334; 86335

== ENCOUNTER 2023-05-01 12:30 | Outpatient (RCR) | payer MEDICARE, OTHER, SELFPAY ==
[2018-12-14 15:07] VITALS: BMI 33.4
--- NOTE | 2023-03-30 12:59 | HP.PTEVAL ---
Patient's Visit Information Visit Information Visit Information: KARRIE DAVID is a 87 year old F referred to Physical Therapy by Dr. Carin Mckeon DO with a diagnosis of Poor Balance, Gait Abnormality - 03-18-2023. Date of Evaluation: 03/30/23 Physical Therapist: Khadar Mendez, PT, ATC Visit Plan Frequency: 2-3x /Week Duration: 4-6 Weeks Plan: Nu-Step, LE Strengthening, UE Strengthening exs., Core-stabilization exs., balance and proprioception exs., gait/ambulation exs. Subjective Subjective: Pt. is in the clinic today for a fall prevention assessment/balance performance assessment. Pt. states that she has no pain whenever she is sitting down. Whenever the pt. stands up she has pain in her LB, R thigh and entire L LE. Pt. receives injections from pain management to relieve her LBP. Pt. does not encounter any stairs at home. Pt. is able to ambulate around her home with her AD of a walker but is not able to ambulate without the walker. Pt. does not have trouble sleeping at night at this time. Pt. states that she has taken therapy before and she has always felt better after. Pain Bilateral Back: Pain Intensity (Out of 10): 0 Pain Intensity Range: 10 Right Lower Extremity: Pain Intensity (Out of 10): 0 Pain Intensity Range: 10 Left Lower Extremity: Pain Intensity (Out of 10): 0 Pain Intensity Range: 10 Objective Objective: LEFS: 19 (76.25% disability) 30-Second Dql-gc-Mlite: 3 sit to stands in 30 seconds (Average for 80-84 y/o = 9 4-Stage Balance Test: 1. Parallel Feet = 10 Seconds; 2. Instep of one foot touching big toe of contralateral foot = 0 seconds; 3. N/A 4. N/A TU minute and 52 seconds (> or + 12 seconds is considered fall risk. Balance/Special Test Scores Lower Extremity Functional Score: 19 Goals Goal 1:: Pt. to demonstrate a 30-Second xht-fn-[id number] MCID of 5 repetitions while using an AD in order to aid in community ambulation. Goal Time Frame: 4-6 Weeks Goal 2:: Pt. to demonstrate the ability to complete a 10 second stand on stage 2 of the 4-Stage balance test without the use of an AD in order to progress to the ability to balance safely while standing I of AD. Goal Time Frame: 4-6 Weeks Goal 3:: Pt. to demonstrate a TUG MCID of 3.5 seconds while using an AD in order to aid in community ambulation Goal Time Frame: 4-6 Weeks Goal 4:: Pt. to demonstrate a LEFS MCID of 9 in order to return to I at home while completing ADLs. Goal Time Frame: 4-6 Weeks Rehabilitation Potential Physical Therapy Diagnosis: Imbalance, pain, weakness and abnormal gait Rehabilitation Potential: Good Anticipated Interventions Patient/Client Instruction: Educate patient on: Condition and Risk Factors For the Purpose of:: To improve performance and independence with ADL's, To decrease level of supervision to perform tasks, To improve ability of physical actions for home/community/work/leisure, To improve gait and locomotor functions, To improve balance, To improve safety with gait, To assume or resume ADL's, To improve safety, To improve health and function, To improve self management and To improve ability to perform tasks related to life management Therapeutic Exercise to Include: Strength training, Coordination, Gait and locomotor training and Neuromotor development For the Purpose of:: To improve ability to perform ADL's, To improve performance and independence with ADL's, To decrease level of supervision to perform tasks, To improve ability of physical actions for home/community/work/leisure, To improve gait and locomotor functions, To improve balance, To improve safety with gait, To assume or resume ADL's, To improve health and function and To improve self management Functional Training to Include: ADL Training For the Purpose of:: To improve ability to perform ADL's and To assume or resume ADL's Text: Thank you for the opportunity to evaluate your patient. For Medicare and Medicare HMO plans, please review the plan of care and approve it. It will need to be FAXED BACK to us at [phone] for Medicare purposes. For Medicare only, by signing this I certify the plan of care. Please let me know if there are questions or concerns regarding this plan of care. Physician Signature: Date:
--- NOTE | 2023-05-01 13:27 | HP.PTREVAL ---
Re-Evaluation Intro: Dr. Carin Mckeon, DO, It has been my pleasure to treat KARRIE DAVID over the last 13 visits for Poor Balance, Gait Abnormality - 03-18-2023. Please see the progress note below for an update on the physical therapy plan of care! Subjective Subjective: Pt reports no recent falls. Pt reports she notices improvements, but knows she needs more therapy at this time Objective Objective/Function: Pt continues to have 7-9/10 pain Pt is able to sit to stand 6 times in 30 sec TU sec Gait: Pt is able to ambulate 150 feet until needing to rest secondary to fatigue Plan Plan Plan: Cont with focus on LE strengthening, balance, and gait tolerance Balance/Gait/Functional tests Balance/Special Test Scores Lower Extremity Functional Score: 19 Goals Goals Goal 1:: Pt. to demonstrate a 30-Second bvm-py-koqdh MCID of 5 repetitions while using an AD in order to aid in community ambulation. Goal Time Frame: 4-6 Weeks Goal Progress: Progressing Goal 2:: Pt will ambulate greater than 340 feet with walker to aid with community ambulation Goal Time Frame: 4-6 Weeks Goal Progress: New goal Goal 3:: Pt. to demonstrate a TUG MCID of 3.5 seconds while using an AD in order to aid in community ambulation Goal Time Frame: 4-6 Weeks Goal Progress: Progressing Goal 4:: Pt. to demonstrate a LEFS MCID of 9 in order to return to I at home while completing ADLs. Goal Time Frame: 4-6 Weeks Goal Progress: Progressing Anticipated Interventions Anticipated Interventions Patient/Client Instruction: Educate patient on: Condition and Risk Factors For the Purpose of:: To improve performance and independence with ADL's, To decrease level of supervision to perform tasks, To improve ability of physical actions for home/community/work/leisure, To improve gait and locomotor functions, To improve balance, To improve safety with gait, To assume or resume ADL's, To improve safety, To improve health and function, To improve self management and To improve ability to perform tasks related to life management Therapeutic Exercise to Include: Strength training, Coordination, Gait and locomotor training and Neuromotor development For the Purpose of:: To improve ability to perform ADL's, To improve performance and independence with ADL's, To decrease level of supervision to perform tasks, To improve ability of physical actions for home/community/work/leisure, To improve gait and locomotor functions, To improve balance, To improve safety with gait, To assume or resume ADL's, To improve health and function and To improve self management Functional Training to Include: ADL Training For the Purpose of:: To improve ability to perform ADL's and To assume or resume ADL's Re-Evaluation Ending Re-evaluation ending: Please do not hesitate to contact me at [phone] by phone or if you have questions or concerns regarding this new plan of care! Sincerely, Khadar Mendez, PT, ATC
== END 2023-05-01 19:00 | disposition home or self-care (01) ==
LOC: PT 12:30
PROVIDERS: PCP Internal Medicine; Visit Provider Internal Medicine
DX: R26.89 Other abnormalities of gait and mobility (principal)
CPT/HCPCS: 97110; 97116; 97161; 97164

== ENCOUNTER → 2023-06-09 | Outpatient (CLI) | payer MEDICARE, OTHER, SELFPAY ==
[2018-12-14 15:07] VITALS: BMI 33.4
[2023-06-09 11:34] LABS: Mucous, Urine 0 SEEN /hpf (<or=2+); Red Blood Cells-Urine 0 SEEN /hpf (0-5)
[2023-06-09 15:12] LABS: Color, Urine Yellow (Yellow); Glucose, Dipstick Normal (Normal); Ketone-Dipstick Negative (Negative); Leukocyte Esterase-Dipstick 25 /ul (Negative); Nitrite-Dipstick Negative (Negative); Occult Blood-Urine Negative /ul (Negative); Protein-Dipstick Negative (Negative); Urine Bilirubin Dipstick Negative (Negative); Urine Clarity Clear (Clear); Urine Urobilinogen Normal (Normal)
[2023-06-09 15:22] LABS: Amorphous Sediment 1+ URATE; Bacteria RARE /hpf (None Seen); Calcium Oxalate Crystals Ur RARE /hpf (<or=2+); Squamous Epithelial Cells - UA 0-5 SEEN /hpf (5-10); White Blood Cells 0-5 SEEN /hpf (0-5)
== END | disposition home or self-care (01) ==
LOC: MTLAB 11:31
PROVIDERS: PCP Internal Medicine; Referring Provider Internal Medicine; Visit Provider Internal Medicine
DX: E11.9 Type 2 diabetes mellitus without complications (principal)
CPT/HCPCS: 81001

== ENCOUNTER 2023-08-01 21:50 | Inpatient (IN) | payer MEDICARE, OTHER, SELFPAY ==
[2018-12-14 15:07] VITALS: BMI 33.4
[2023-08-01 21:51] VITALS: BP 107/39; PULSE 66; RESP 20; TEMP 36.6; O2SAT 92; BMI 32.7
--- NOTE | 2023-08-01 22:05 | EDS_ITS ---
HPI History of Present Illness Chief Complaint: Weakness Informant: patient and family Onset/Context/Timing Onset: Today Context: Sudden Onset Timing: Continuous Quality: Weakness Location: Generalized Worsened by: Nothing Relieved by: Tylenol Narrative Narrative: Patient presents with generalized weakness that began today. Patient states it began rather suddenly. Patient states she feels weak all over. Patient states this feels similar to prior urinary tract infections. Patient denies any dysuria or hematuria however. Patient states she never gets any dysuria or hematuria with her urinary tract infections. Family states that the patient is on a chronic antibiotic at night for frequent urinary tract infections. Patient admits to some subjective fevers and sweats. Patient took Tylenol prior to arrival which helped with the fever. Patient states nothing seems to help with the weakness. Patient had an episode of nausea and dry heaves tonight. [facility] Medical History abnormal ultrasound right breast Acute bronchitis due to Haemophilus influenzae Anxiety and depression Asthma Breast cancer, right (~11/2018) Cancer Chronic obstructive pulmonary disease (COPD) Diabetes Diabetes mellitus, type II Difficulty swallowing Elevated liver enzymes GERD (gastroesophageal reflux disease) HLD (hyperlipidemia) HTN (hypertension) Hx: UTI (urinary tract infection) Hypothyroidism Irritable bowel Kidney disease Obesity (BMI 30-39.9) Home Medications aspirin 81 mg tablet,delayed release 81 mg PO QHS HRT 07/10/15 [History Last Taken 10/02/21] atenolol 100 mg tablet 100 mg PO DAILY bp 07/10/15 [History Last Taken 10/02/21] levothyroxine 112 mcg tablet 224 mcg PO SUSA THYROID 07/10/15 [History Last Taken 09/29/21] montelukast 10 mg tablet 10 mg PO QHS ALLERGY 07/10/15 [History Last Taken 10/02/21] gabapentin 300 mg capsule 300 mg PO BID NERVE PAIN 02/16/17 [History Last Taken 10/02/21] duloxetine 30 mg capsule,delayed release 30 mg PO BID DEPRESSION 07/08/18 [History Last Taken 07/29/19] amlodipine 2.5 mg tablet 2.5 mg PO DAILY BP 07/29/19 [History Last Taken ] cholecalciferol (vitamin D3) 50 mcg (2,000 unit) chewable tablet 8,000 unit PO DAILY SUPPLEMENT 07/29/19 [History Last Taken 10/02/21] clonidine HCl 0.1 mg tablet 0.1 mg PO DAILY BP 07/29/19 [History Last Taken 10/02/21] loperamide 2 mg capsule 2 mg PO TID PRN diarrhea' 08/08/20 [History Last Taken Unknown] dicyclomine 10 mg capsule 10 mg PO Q6H PRN PRN abdominal discomfort #20 CAPSULES 01/17/22 [Rx Last Taken Unknown] mometasone 50 mcg/actuation nasal spray 2 spray intranasal DAILY nasal spray 02/02/22 [History Last Taken Unknown] fexofenadine 180 mg tablet 180 mg PO QHS PRN allergic rhinits #3 tabs 02/04/22 [Rx Last Taken 10/02/21] isosorbide dinitrate 10 mg tablet 10 mg PO TIDCM #0 tabs 02/04/22 [Rx Last Taken Unknown] atorvastatin 20 mg tablet 20 mg PO DAILY 09/23/22 [History Last Taken Unknown] cyanocobalamin (vitamin B-12) 1,000 mcg/mL injection kit 1,000 mcg IM QMONTH 09/23/22 [History Last Taken Unknown] levothyroxine 112 mcg tablet 112 mcg PO DAILY THYROID 09/23/22 [History Last Taken Unknown] metformin 500 mg tablet 500 mg PO DAILY 09/23/22 [History Last Taken Unknown] colchicine 0.6 mg tablet 0.6 mg PO DAILY #30 tabs 01/23/23 [Rx Last Taken Unknown] esomeprazole magnesium 40 mg capsule,delayed release (Nexium) 40 mg PO TID 08/02/23 [History Last Taken Unknown] Allergy/AdvReac Type Severity Reaction Status Date / Time hydrocodone bitartrate AdvReac Severe Other Verified 08/01/23 21:51 [From Vicodin] oxycodone HCl [From Percocet] AdvReac Severe Other Verified 08/01/23 21:51 tramadol AdvReac Severe Other Verified 08/01/23 21:51 Family History Brother Breast cancer Kidney disease Heart disease Father Heart disease Surgical History history laminectomy with decompression History of cholecystectomy History of laparoscopic cholecystectomy History of left mastectomy History of right mastectomy (~11/2018) history partial right oophorectomy Status post left partial knee replacement Social History Smoking Status: Former smoker second hand exposure: No alcohol intake: never substance use type: does not use connie/baptist: Baptism seatbelt use: always ROS ROS ED Constitutional Constitutional ED: Reports fever(s), subjective and sweats; Denies chills Eyes Eyes: Denies blurry vision or change in vision ENT ENT ED: Denies rhinorrhea or sore throat Cardiovascular Cardiovascular: Denies chest pain or palpitations Respiratory/Chest Respiratory/Chest: Reports dyspnea; Denies cough Gastrointestinal Gastrointestinal: Reports nausea and vomiting Genitourinary Genitourinary ED: Denies dysuria or hematuria Musculoskeletal Musculoskeletal: Reports back pain and neck pain Integumentary Denies abscess or rash Neurologic Neurologic: Denies headache(s) or weakness Allergic/Immunologic Allergic/Immunologic ED: Denies mouth swelling or urticaria EXAM Physical Exam Const Vital Signs: 08/01/23 21:51 08/02/23 02:12 08/02/23 04:00 Temperature 97.8 F Temperature Source Oral Pulse Rate 66 56 L 55 L Respiratory Rate 20 H 18 17 Blood Pressure 107/39 L 122/37 H Blood Pressure Mean 61 65 Pulse Ox 92 97 97 Oxygen Delivery Method Room Air Room Air Positive well nourished, well developed and obese General Appearance ED: well developed and NAD Nutritional Appearance: obese HEENT Reports moist mucous membranes Neck supple and no JVD Resp normal respiratory effort and clear to auscultation bilaterally Cardio regular rate and regular rhythm GI non-tender and non-distended Palpation: soft Neuro oriented x3, CN's II-XII intact bilaterally and no sensory deficits noted Sensorium / Orientation: alert Motor Exam: strength 5/5 throughout Psych mental status grossly normal MDM MDM MDM Narrative Medical decision making narrative: Differential diagnosis includes urinary tract infection, viral illness, pneumonia, electrolyte abnormality, anemia, and anxiety. CBC will be obtained to assess for leukocytosis and anemia. Basic metabolic profile will be obtained to assess for electrolyte abnormality and renal function. Urinalysis will be obtained to assess for urinary tract infection and hematuria. Chest x-ray will be obtained to assess for pneumonia. COVID-19, influenza, and RSV PCR will be obtained to assess for viral illness. Lab Data Attestation: I reviewed the patient's lab results. Lab results narrative: CBC was reviewed. White blood cell count was slightly low at 4.3. Basic metabolic profile was reviewed. Potassium was slightly low at 3.2. Serum lactate was reviewed and was slightly elevated at 2.2. Urinalysis was reviewed. Leukocyte esterase was 25. There was 0 white blood cells seen and 0 epithelial cells seen. There is 3+ bacteria however. Repeat lactate was reviewed and increased to 3.5. COVID-19 PCR was reviewed and was negative. Influenza PCR was reviewed and was negative for influenza A and influenza B. RSV PCR was reviewed and was negative. Hepatic profile was reviewed. Total bilirubin was elevated at 2.2 and direct bilirubin was elevated at 1.43. AST was elevated at 723 and ALT was elevated at 453. Alkaline phosphatase was also slightly elevated at 257. Labs: Laboratory Results - last 24 hr 08/01/23 08/01/23 08/01/23 22:40 22:55 23:20 WBC 4.3 L RBC 4.91 Hgb 14.0 Hct 45.1 MCV 91.9 MCH 28.5 MCHC 31.0 L RDW Std Deviation 47.6 H RDW Coeff of Sravan 14.1 Plt Count 221 MPV 9.9 Immature Gran % (Auto) 0.900 Neut % (Auto) 76.2 H Lymph % (Auto) 12.4 L [place]ike % (Auto) 8.9 Eos % (Auto) 0.7 Baso % (Auto) 0.9 Absolute Neuts (auto) 3.2 Absolute Lymphs (auto) 0.53 L Nucleated RBC % 0 Differential Comment SEE COMMENT Diff Path Review May foll Platelet Estimate ADEQUATE RBC Morphology N CHROM Anisocytosis RARE Macrocytosis RARE Ovalocytes RARE Sodium 140 Potassium 3.2 L Chloride 108 H Carbon Dioxide 25.0 Anion Gap 7 BUN 16 Creatinine 1.05 H Estim Creat Clear Calc 40.91 Est GFR (MDRD) Af Amer 64 Est GFR (MDRD) Non-Af 53 L BUN/Creatinine Ratio 15.2 Glucose 116 H Lactic Acid Cancelled 2.2 H* Calcium 9.8 Total Bilirubin 2.20 H Direct Bilirubin 1.43 H AST 723 H ALT 453 H Alkaline Phosphatase 257 H Total Protein 6.6 Albumin 3.1 L Globulin 3.5 Urine Color Yellow Urine Clarity Clear Urine pH 5.0 Ur Specific [place] 1.020 Urine Protein 30 H Urine Glucose (UA) Normal Urine Ketones Negative Urine Occult Blood 25 H Urine Nitrite Negative Urine Bilirubin Negative Urine Urobilinogen 1 H Ur Leukocyte Esterase 25 H Urine RBC 0 SEEN Urine WBC 0 SEEN Ur Squamous Epith Cells 0 SEEN Urine Bacteria 3+ Urine Mucus 0 SEEN 08/02/23 03:40 WBC RBC Hgb Hct MCV MCH MCHC RDW Std Deviation RDW Coeff of Sravan Plt Count MPV Immature Gran % (Auto) Neut % (Auto) Lymph % (Auto) [place] % (Auto) Eos % (Auto) Baso % (Auto) Absolute Neuts (auto) Absolute Lymphs (auto) Nucleated RBC % Differential Comment Diff Path Review Platelet Estimate RBC Morphology Anisocytosis Macrocytosis Ovalocytes Sodium Potassium Chloride Carbon Dioxide Anion Gap BUN Creatinine Estim Creat Clear Calc Est GFR (MDRD) Af Amer Est GFR (MDRD) Non-Af BUN/Creatinine Ratio Glucose Lactic Acid 3.5 H* Calcium Total Bilirubin Direct Bilirubin AST ALT Alkaline Phosphatase Total Protein Albumin Globulin Urine Color Urine Clarity Urine pH Ur Specific [place] Urine Protein Urine Glucose (UA) Urine Ketones Urine Occult Blood Urine Nitrite Urine Bilirubin Urine Urobilinogen Ur Leukocyte Esterase Urine RBC Urine WBC Ur Squamous Epith Cells Urine Bacteria Urine Mucus Radiography Diagnostic Testing: Clinical Impression(s) from Imaging Studies Chest X-Ray 08/01/23 23:45 IMPRESSION: 1. Low lung volumes limit the exam. No consolidations. 2. No acute cardiopulmonary abnormality. Electronically Signed: Cesario Barker MD at 0:17 EST , Abdomen/Pelvis CT 08/02/23 02:23 IMPRESSION: Fluid within nondistended loops of small bowel and within stomach without bowel wall thickening or surrounding inflammation can be normal or can be seen with gastroenteritis in the right clinical setting. No acute or inflammatory disease or bowel obstruction. Electronically Signed: Sahil Xie MD at 4:53 EST , PA and lateral chest x-ray was obtained. There are 2 views. On my independent interpretation, lung melgoza are clear. There is normal cardiac silhouette. Bony thorax is normal. There is no acute process noted. Radiologist also interpreted the x-ray and agrees. Because of the elevated liver function test, CT scan of the abdomen pelvis was obtained. There is no evidence of bowel obstruction or acute inflammatory disease. There is some nondistended loops of small bowel and stomach containing fluid but there is no bowel wall thickening or surrounding inflammation. This was interpreted by the radiologist and was also independently reviewed by myself. Additional Tests and Interventions Additional Tests or Interventions: On reevaluation, patient stated that she was having some right upper quadrant pain. Patient states she has a history of prior liver disease and sees Dr. Caba for that. Because of this, hepatic profile was obtained to assess for hepatic function. PT with INR and PTT were obtained to assess for coagulopathy and hepatic function. Treatment and Re-Evaluation :: Patient was given IV fluids. Patient was given a dose of oral potassium. Patient is on metformin which could account for the lactic acidosis. Given the abnormal liver function test and generalized weakness, this could be sepsis from an infectious process. Urine culture was ordered, and blood cultures were ordered. I will discuss the case with the hospitalist for possible admission. He will admit the patient to his service. Patient understood and was agreeable with the plan. All questions were answered. Discharge Plan Triage Chief Complaint: Weakness ED Provider: Lester Mayfield Dx/Rx/DC Orders Clinical Impression: Transaminitis, Lactic acidosis Prescriptions: No Action cyanocobalamin (vitamin B-12) 1,000 mcg/mL kit 1,000 mcg IM [facility] Rx Instructions: 08-11-22 1ml [id number] q 1 week for 2 weeks, then every 2 weeks for 8 weeks then once a month atorvastatin 20 mg tablet 20 mg PO DAILY metformin 500 mg tablet 500 mg PO DAILY colchicine 0.6 mg tablet 0.6 mg PO DAILY Qty: 30 8RF atenolol 100 MG tablet 100 mg PO DAILY aspirin 81 MG tablet 81 mg PO QHS montelukast 10 MG tablet 10 mg PO QHS levothyroxine 112 MCG tablet 224 mcg PO SUSA Patient Comments: thursday levothyroxine 112 mcg tablet 112 mcg PO DAILY Rx Instructions: take one tablet daily and take two tablets on Saturdays and Thursday starting 07-11-22 gabapentin 300 MG capsule 300 mg PO BID duloxetine 30 MG capsule 30 mg PO BID clonidine HCl 0.1 MG tablet 0.1 mg PO DAILY amlodipine 2.5 MG tablet 2.5 mg PO DAILY cholecalciferol (vitamin D3) 2,000 UNIT tablet,chewable 8,000 unit PO DAILY loperamide 2 MG capsule 2 mg PO TID PRN (Reason: diarrhea') dicyclomine 10 mg capsule 10 mg PO Q6H PRN PRN (Reason: abdominal discomfort) Qty: 20 0RF mometasone 50 mcg/actuation [place],Non-Aerosol 2 spray INTRANASAL DAILY Rx Instructions: administer into each nostril isosorbide dinitrate 10 mg Tablet 10 mg PO TIDCM Qty: 0 0RF fexofenadine 180 MG tablet 180 mg PO QHS PRN (Reason: allergic rhinits) Qty: 3 0RF esomeprazole magnesium [Nexium] 40 mg capsule,delayed release(DR/EC) 40 mg PO TID Primary Care Provider: Carin Mckeon Referrals: Carin Mckeon DO [Primary Care Provider] - Disposition Disposition: Acute Care Hospital [facility]
[2023-08-01 22:48] LABS: Absolute Lymphocyte Count 0.53 X10^3/uL (0.83-4.51); Absolute Neutrophil Count 3.2 X10^3/uL (2.0-7.7); Basophil# 0.04 X10^3/uL; Basophil% 0.9 % (0-1); Differential Indicated SCAN CRITERIA MET; Eosinophil# 0.03 X10^3/uL; Eosinophils% 0.7 % (0-5); Hematocrit 45.1 % (37-47); Lymphocyte # 0.53 X10^3/ul (0.83-4.51); Lymphocyte % 12.4 % (19-41); Mean Corpuscular Hgb 28.5 pg (27.0-32.0); Mean Corpuscular Volume 91.9 fL (81-99); Mean Platelet Vol. 9.9 fl (6.2-12.0); Monocyte# 0.38 X10^3/uL; Monocyte% 8.9 % (0-10); NRBC Flagged by Analyzer 0 % (0-5); Neutrophil # 3.24 X10^3/uL (2.7-7.7); Neutrophil % 76.2 % (47-70); POSITIVE DIFFERENTIAL YES; POSITIVE MORPHOLOGY YES; Platelet Count 221 K/mm3 (150-450); RBC Distribution Width CV 14.1 % (11.6-14.6); RBC Distribution Width SD 47.6 fl (35.1-43.9); Red Blood Count 4.91 M/mm3 (4.2-5.4); White Blood Count 4.3 K/mm3 (4.4-11.0)
[2023-08-01 23:03] LABS: Anion Gap 7 (5-15); BUN 16 mg/dL (7-18); BUN/Creat Ratio 15.2 RATIO (10-20); Calcium,Total 9.8 mg/dL (8.5-10.1); Chloride 108 mmol/L (98-107); Creatinine, Serum 1.05 mg/dL (0.55-1.02); EST Glomerular Filtration Rate 53 mL/min (>60); Est Glom Filt Rate - Afr Amer 64 mL/min (>60); Estimated Creatinine Clearance 40.91 ml/min; Glucose 116 mg/dL (74-106); Potassium 3.2 mmol/L (3.5-5.1); Sodium Level 140 mmol/L (136-145)
[2023-08-01 23:05] LABS: Anisocytosis RARE; Macrocytosis RARE; Ovalocyte RARE; Platelet Estimate ADEQUATE (ADEQ); Red Cell Morphology N CHROM NORMAL (NORM C&C)
[2023-08-01 23:06] LABS: Mucous, Urine 0 SEEN /hpf (<or=2+); Red Blood Cells-Urine 0 SEEN /hpf (0-5); Squamous Epithelial Cells - UA 0 SEEN /hpf (5-10); White Blood Cells 0 SEEN /hpf (0-5)
[2023-08-01 23:10] LABS: Color, Urine Yellow (Yellow); Glucose, Dipstick Normal (Normal); Ketone-Dipstick Negative (Negative); Leukocyte Esterase-Dipstick 25 /ul (Negative); Nitrite-Dipstick Negative (Negative); Occult Blood-Urine 25 /ul (Negative); Protein-Dipstick 30 mg/dl (Negative); Urine Bilirubin Dipstick Negative (Negative); Urine Urobilinogen 1 mg/dl (Normal)
[2023-08-01 23:23] LABS: Urine Clarity Clear (Clear)
[2023-08-01 23:24] LABS: Bacteria 3+ /hpf (None Seen)
--- NOTE | 2023-08-01 23:45 | RAD_ITS ---
EXAM: XR CHEST, 2 VIEWS CLINICAL INDICATION: Fever TECHNIQUE: Frontal and lateral views of the chest. COMPARISON: No relevant prior studies available. FINDINGS: LUNGS AND PLEURAL SPACES: Low lung volumes limit the exam. No consolidations. No pneumothorax. No effusion. HEART: Unremarkable. Cardiac silhouette not enlarged. MEDIASTINUM: Central airways and mediastinal contour are unremarkable. BONES/JOINTS: Unremarkable. No acute fracture. SOFT TISSUES: Unremarkable. RAD/Chest PA and Lateral IMPRESSION: 1. Low lung volumes limit the exam. No consolidations. 2. No acute cardiopulmonary abnormality. Electronically Signed: Cesario Barker MD at 0:17 EST ,
[2023-08-02] VITALS (9 sets, daily range): BP systolic 122–167; BP diastolic 37–77; PULSE 55–65; RESP 15–18; TEMP 36.3–37.1; O2SAT 94–97; BMI 31.3
[2023-08-02 00:18] LABS: Lactic Acid 2.2 mmol/L (0.4-1.9)
[2023-08-02] MEDS: Potassium Chloride Oral Tablet 20 MEQ 40 MEQ PO (02:06)
[2023-08-02 02:09] LABS: AST(SGOT) 723 U/L (15-37); Alanine Aminotransfer ALT/SGPT 453 U/L (13-56); Albumin, Serum 3.1 g/dL (3.2-5.0); Alkaline Phosphatase 257 U/L (45-117); Bilirubin, Direct 1.43 mg/dL (0.00-0.30); Globulin 3.5 g/dL (2.2-4.2); Protein, Total 6.6 g/dL (6.4-8.2)
--- NOTE | 2023-08-02 02:23 | CT_ITS ---
EXAM: CT ABDOMEN AND PELVIS WITH INTRAVENOUS CONTRAST CLINICAL INDICATION: Abdominal pain TECHNIQUE: Helically acquired images were obtained of the abdomen and pelvis with intravenous contrast. CTDIvol = ( 22.78 ) mGy, DLP = ( 1270.15 ) mGycm This CT exam was performed using one or more of the following dose reduction techniques: automated exposure control, adjustment of the mA and/or kV according to patient size, and/or use of iterative reconstruction technique. CONTRAST: IV 100mL [id number] COMPARISON: No relevant prior studies available. FINDINGS: LOWER THORAX: Unremarkable. Lung bases are clear. No cardiomegaly. No significant pericardial effusion. ABDOMEN: LIVER: Unremarkable. Homogeneous. No focal mass. GALLBLADDER AND BILE DUCTS: Prior cholecystectomy. No other abnormalities. PANCREAS: Unremarkable. No focal cystic or solid mass. SPLEEN: Unremarkable. Normal size without focal cystic or solid mass. ADRENALS: The scattered hypodensities involving the adrenal glands statistically probably represent cysts. No adrenal masses. KIDNEYS AND URETERS: Unremarkable. Normal renal size and position. No hydronephrosis. STOMACH AND BOWEL: Fluid within nondistended loops of small bowel and within stomach without bowel wall thickening or surrounding inflammation can be normal or can be seen with gastroenteritis in the right clinical setting. No colitis, diverticulitis or bowel obstruction. PELVIS: APPENDIX: No appendicitis. BLADDER: Unremarkable. REPRODUCTIVE: Unremarkable as visualized. No mass. ABDOMEN and PELVIS: INTRAPERITONEAL SPACE: Unremarkable. No free fluid. No free air. BONES/JOINTS: Bilateral renal scarring. Few scattered sclerotic. SOFT TISSUES: Unremarkable. No discrete abdominal or pelvic wall hernia. VASCULATURE: Unremarkable. Abdominal aorta is non-dilated. LYMPH NODES: Unremarkable. No enlarged lymph nodes. CT/Abdomen/Pelvis W IV Cont ONLY IMPRESSION: Fluid within nondistended loops of small bowel and within stomach without bowel wall thickening or surrounding inflammation can be normal or can be seen with gastroenteritis in the right clinical setting. No acute or inflammatory disease or bowel obstruction. Electronically Signed: Sahil Xie MD at 4:53 EST ,
[2023-08-02 03:24] LABS: Reflex Lactate? Y
[2023-08-02 04:16] LABS: Lactic Acid 3.5 mmol/L (0.4-1.9)
[2023-08-02] MEDS: 0.9% Normal Saline (1000mL) 1,000 ML 1000 ML IV (04:42)
--- NOTE | 2023-08-02 05:36 | PCM.HP.STD ---
[facility] - General General Date of Admission: 08/02/23 Date of Service: 08/02/23 Chief Complaint: Fevers, Sweats and Generalized Weakness HPI Narrative KARRIE DAVID, is a 87 F with a past medical history of essential hypertension, hyperlipidemia; on atorvastatin, hypothyroidism, obesity; with BMI of 32.7 this admission, diabetes mellitus type 2; of unknown control on Metformin, remote history of tobacco abuse; with subsequent asthma/COPD, breast cancer; status post bilateral mastectomies (2019), history of elevated liver function tests, history of cholecystectomy, depression with anxiety, GERD, gout, osteoarthritis; with history of laminectomy and decompression, history of left partial knee replacement,, irritable bowel syndrome and history of frequent UTIs who presents to [facility] ER complaining of fevers, sweats and generalized weakness. Ms. David reports her symptoms began approximately 1 day prior to admission with the abrupt onset of generalized weakness that was continuous along with a subjective fever and was made worse by nothing but was relieved by Tylenol. The patient thought that she was developing a UTI because she has had similar symptoms in the past with this diagnosis but she denies associated dysuria, hematuria or urinary frequency. She also admits to an episode of nausea with dry heaves earlier in the evening along with back pain and neck ache but she denies vomiting, chest pain, shortness of breath, jaundice, rash, diarrhea or constipation. She denies excessive alcohol use or excessive Tylenol use. In the ER she was noted to have an initial lactate elevated at 2.2 mmol/L that oxana to 3.5 mmol/L approximately four hours later due to suspected Metformin-induced Lactic Acidosis complicated by Hyperbilirubinemia (with total bilirubin of 2.2 mg/dL and direct bilirubin of 1.43 mg/dL present on admission) with elevated AST 723 U/L, ALT 453 and Alkaline Phosphatase 257 U/L due to suspected Adverse Drug Reaction to Atorvastatin with Hypokalemia of 3.2 mmol/L present on admission and a UA positive for evidence of colonization but not acute infection and a CT scan of the abdomen and pelvis that was unremarkable for acute pathologic changes and she was then admitted to the general medical floor for ongoing care for a stay that is expected to be greater than 48 hours. FORMERLY [facility], [facility] Medical History (Updated 08/02/23 @ 07:[address] Ford Yang DO) abnormal ultrasound right breast Acute bronchitis due to Haemophilus influenzae Anxiety and depression Asthma Breast cancer, right (~11/2018) Cancer Chronic obstructive pulmonary disease (COPD) Diabetes Diabetes mellitus, type II Difficulty swallowing Elevated liver enzymes GERD (gastroesophageal reflux disease) HLD (hyperlipidemia) HTN (hypertension) Hx: UTI (urinary tract infection) Hypokalemia Hypothyroidism Irritable bowel Kidney disease Obesity (BMI 30-39.9) Home Medications aspirin 81 mg tablet,delayed release 81 mg PO QHS HRT 07/10/15 [History Last Taken 10/02/21] atenolol 100 mg tablet 100 mg PO DAILY bp 07/10/15 [History Last Taken 10/02/21] levothyroxine 112 mcg tablet 224 mcg PO SUSA THYROID 07/10/15 [History Last Taken 09/29/21] montelukast 10 mg tablet 10 mg PO QHS ALLERGY 07/10/15 [History Last Taken 10/02/21] gabapentin 300 mg capsule 300 mg PO BID NERVE PAIN 02/16/17 [History Last Taken 10/02/21] duloxetine 30 mg capsule,delayed release 30 mg PO BID DEPRESSION 07/08/18 [History Last Taken 07/29/19] amlodipine 2.5 mg tablet 2.5 mg PO DAILY BP 07/29/19 [History Last Taken 10/02/21] cholecalciferol (vitamin D3) 50 mcg (2,000 unit) chewable tablet 8,000 unit PO DAILY SUPPLEMENT 07/29/19 [History Last Taken 10/02/21] clonidine HCl 0.1 mg tablet 0.1 mg PO DAILY BP 07/29/19 [History Last Taken 10/02/21] loperamide 2 mg capsule 2 mg PO TID PRN diarrhea' 08/08/20 [History Last Taken Unknown] dicyclomine 10 mg capsule 10 mg PO Q6H PRN PRN abdominal discomfort #20 CAPSULES 01/17/22 [Rx Last Taken Unknown] mometasone 50 mcg/actuation nasal spray 2 spray intranasal DAILY nasal spray 02/02/22 [History Last Taken Unknown] fexofenadine 180 mg tablet 180 mg PO QHS PRN allergic rhinits #3 tabs 02/04/22 [Rx Last Taken 10/02/21] isosorbide dinitrate 10 mg tablet 10 mg PO TIDCM #0 tabs 02/04/22 [Rx Last Taken Unknown] atorvastatin 20 mg tablet 20 mg PO DAILY 09/23/22 [History Last Taken Unknown] cyanocobalamin (vitamin B-12) 1,000 mcg/mL injection kit 1,000 mcg IM QMONTH 09/23/22 [History Last Taken Unknown] levothyroxine 112 mcg tablet 112 mcg PO DAILY THYROID 09/23/22 [History Last Taken Unknown] metformin 500 mg tablet 500 mg PO DAILY 09/23/22 [History Last Taken Unknown] colchicine 0.6 mg tablet 0.6 mg PO DAILY #30 tabs 01/23/23 [Rx Last Taken Unknown] esomeprazole magnesium 40 mg capsule,delayed release (Nexium) 40 mg PO TID 08/02/23 [History Last Taken Unknown] Allergy/AdvReac Type Severity Reaction Status Date / Time hydrocodone bitartrate AdvReac Severe Other Verified 08/01/23 21:51 [From Vicodin] oxycodone HCl [From Percocet] AdvReac Severe Other Verified 08/01/23 21:51 tramadol AdvReac Severe Other Verified 08/01/23 21:51 atorvastatin AdvReac Unknown Other Verified 08/02/23 06:14 Family History Brother Breast cancer Kidney disease Heart disease Father Heart disease Surgical History history laminectomy with decompression History of cholecystectomy History of laparoscopic cholecystectomy History of left mastectomy History of right mastectomy (~11/2018) history partial right oophorectomy Status post left partial knee replacement Social History Smoking Status: Former smoker second hand exposure: No alcohol intake: never substance use type: does not use connie/denominational: Judaism seatbelt use: always ROS ROS Narrative Review of systems: General: Patient admits to subjective fever and sweats but denies chills. HENT: Denies headache, denies stuffy nose, denies sore throat EYES: Denies changes in vision or discharge from eyes Resp: Denies cough, denies shortness of breath Cardiac: Denies chest pain or palpitation GI: Patient admits to right upper quadrant pain and nausea with dry heaves : Denies changes in urination Extremity: Denies swelling Musculoskeletal: Feels somewhat generally weak and unwell Neuro: Denies any numbness/tingling, headache or other focal neurologic deficit Heme: Denies any bleeding or bruising Skin: Denies rashes or jaundice Psychiatric: No complaints voiced related to uncontrolled depression or anxiety Endocrine: No polyuria, polydipsia or polyphagia The rest of the 14 point ROS was negative except for positives in HPI. Vital Signs Vital Signs Vital Signs: 08/01/23 21:51 08/02/23 02:12 08/02/23 04:00 Temperature 97.8 F Temperature Source Oral Pulse Rate 66 56 L 55 L Respiratory Rate 20 H 18 17 Blood Pressure 107/39 L 122/37 H Blood Pressure Mean 61 65 Pulse Ox 92 97 97 Oxygen Delivery Method Room Air Room Air Weight Weight: 190 lb 7.67 oz Body Mass Index (BMI) 32.7 Physical Exam Const alert, oriented x3, no apparent distress and well nourished Constitutional Narrative: Patient is obese and appears moderately ill. General Appearance: cooperative HEENT normocephalic, head/scalp atraumatic and hearing grossly normal bilaterally HEENT Narrative: Mucous membranes dry. Eyes PERRL and EOMs intact bilaterally Neck no lymphadenopathy and supple Resp normal respiratory effort, no retractions, no use of accessory muscles and clear to auscultation bilaterally Cardio regular rate and regular rhythm GI normal to inspection, nondistended, normoactive bowel sounds, soft to palpation and non-distended GI Narrative: Patient has mild right upper quadrant tenderness to palpation Extremity normal to inspection, full ROM and no clubbing, cyanosis or edema Skin Skin Narrative: Patient has no evidence of rash or jaundice at this time. Neuro oriented x3, CN's II-XII intact bilaterally, moves all extremities and no focal motor deficits Sensorium / Orientation: awake, alert, oriented to person, oriented to place and oriented to time Speech: speech normal Motor Exam: strength 5/5 throughout Psych Mood & Affect: anxious Results Medical Records Data Attestation: I reviewed the patient's medical records Lab / Micro Data Attestation: I reviewed the patient's lab results. 08/01/23 22:40 08/01/23 22:40 Labs: Laboratory Results - last 24 hr 08/01/23 22:40: WBC 4.3 L, RBC 4.91, Hgb 14.0, Hct 45.1, MCV 91.9, MCH 28.5, MCHC 31.0 L, RDW Std Deviation 47.6 H, RDW Coeff of Sravan 14.1, Plt Count 221, MPV 9.9, Immature Gran % (Auto) 0.900, Neut % (Auto) 76.2 H, Lymph % (Auto) 12.4 L, [place] % (Auto) 8.9, Eos % (Auto) 0.7, Baso % (Auto) 0.9, Absolute Neuts (auto) 3.2, Absolute Lymphs (auto) 0.53 L, Nucleated RBC % 0, Differential Comment SEE COMMENT, Diff Path Review October foll, Platelet Estimate ADEQUATE, RBC Morphology N CHROM, Anisocytosis RARE, Macrocytosis RARE, Ovalocytes RARE, Sodium 140, Potassium 3.2 L, Chloride 108 H, Carbon Dioxide 25.0, Anion Gap 7, BUN 16, Creatinine 1.05 H, Estim Creat Clear Calc 40.91, Est GFR (MDRD) Af Amer 64, Est GFR (MDRD) Non-Af 53 L, BUN/Creatinine Ratio 15.2, Glucose 116 H, Lactic Acid Cancelled, Calcium 9.8, Total Bilirubin 2.20 H, Direct Bilirubin 1.43 H, AST 723 H, ALT 453 H, Alkaline Phosphatase 257 H, Total Protein 6.6, Albumin 3.1 L, Globulin 3.5 08/01/23 22:55: Urine Color Yellow, Urine Clarity Clear, Urine pH 5.0, Ur Specific [place] 1.020, Urine Protein 30 H, Urine Glucose (UA) Normal, Urine Ketones Negative, Urine Occult Blood 25 H, Urine Nitrite Negative, Urine Bilirubin Negative, Urine Urobilinogen 1 H, Ur Leukocyte Esterase 25 H, Urine RBC 0 SEEN, Urine WBC 0 SEEN, Ur Squamous Epith Cells 0 SEEN, Urine Bacteria 3+, Urine Mucus 0 SEEN 08/01/23 23:20: Lactic Acid 2.2 H* 08/02/23 03:40: Lactic Acid 3.5 H* Micro: Microbiology 08/01/23 22:55 Mucosa - Nose SARS-CoV-2, Influenza & RSV (PCR) - Final Imaging Radiology Impression Chest X-Ray 08/01/23 23:45 IMPRESSION: 1. Low lung volumes limit the exam. No consolidations. 2. No acute cardiopulmonary abnormality. Electronically Signed: Cesario Barker MD at 0:17 EST , Abdomen/Pelvis CT 08/02/23 02:23 IMPRESSION: Fluid within nondistended loops of small bowel and within stomach without bowel wall thickening or surrounding inflammation can be normal or can be seen with gastroenteritis in the right clinical setting. No acute or inflammatory disease or bowel obstruction. Electronically Signed: Sahil Xie MD at 4:53 EST , Assessment & Plan Assessment/Plan (1) Adverse drug reaction: QUALIFIERS: Encounter type: initial encounter Qualified Code(s): T50.905A - Adverse effect of unspecified drugs, medicaments and biological substances, initial encounter (2) Acute lactic acidosis: (3) Transaminitis: (4) Hypokalemia: (5) Generalized weakness: PLAN: Plan 1. Metformin-induced Lactic Acidosis - Admit to general medical floor with telemetric monitoring. Stop metformin and add to patient's list of allergies. Volume resuscitate, treat supportively and monitor for improvement. Serialize lactates until normalization. 2. Hyperbilirubinemia (with total bilirubin of 2.2 mg/dL and direct bilirubin of 1.43 mg/dL present on admission) with elevated AST 723 U/L, ALT 453 and Alkaline Phosphatase 257 U/L due to suspected Adverse Drug Reaction to Atorvastatin complicating #1 in the setting of a known history of chronically elevated LFTs and previous cholecystectomy with CT scan negative for acute pathologic liver changes this admission - Check CMP in a.m. to follow trend and assess for improvement after withdrawal of statin agent. Avoid Tylenol or other potentially hepatotoxic agents. We will check hepatitis profile, Tylenol level and blood alcohol level to assess for other possible causes of liver disease. 3. Hypokalemia of 3.2 mmol/L present on admission - Give supplemental KCl and then recheck level in the a.m. to ensure improvement. 4. Severe generalized weakness with myalgias attributable to #1 - #3 - PT/OT and case management consult and treat on rounds in the a.m. without appreciated in advance. 5. Essential hypertension - Continue home medications as previous. 6. Hyperlipidemia - Atorvastatin has been held and added to her list of allergies due to #2. 7. Hypothyroidism - Resume Synthroid and check TSH. 8. Obesity; with BMI of 32.7 this admission - Weight loss will be recommended. 9. Diabetes mellitus type 2; of unknown control on Metformin - Metformin has been added to her list of allergies due to #1. Start clear liquid diet and advance as tolerated. Check fingerstick blood sugars before every meal and at bedtime. Check hemoglobin A1c to objectively assess quality of diabetic control. 10. Remote history of tobacco abuse; with subsequent asthma/COPD - Stable with no evidence of flare at this time. Continue home medication as previous plus give prn nebulizers. 11. Breast cancer; status post bilateral mastectomies (2018) - Noted. 12. Depression with anxiety - Home regimen to continue. 13. GERD - Resume PPI. 14. Gout - Stable with no evidence of acute flare. 15. Osteoarthritis; with history of laminectomy and decompression - Noted. 16. History of left partial knee replacement - Stable. 17. Irritable bowel syndrome - Resume current regimen. 18. History of frequent UTIs - Noted with UA on admission negative for acute infection but positive for colonization. 19. DVT prophylaxis - Lovenox 40 mg subcu daily plus SCDs. Total time: Approximately 55 minutes. Charges/Coding Visit Charges Inpatient E&M: 43906 Init Hosp L2
[2023-08-02 06:12] LABS: International Normalized Ratio 1.3
[2023-08-02 06:13] LABS: Partial Thromboplast Time 25.2 Seconds (24.1-36.2)
[2023-08-02 06:37] LABS: Acetaminophen (Tylenol) Level 7.5 ug/mL (10.0-30.0); Alcohol, Blood (Medical)-Serum < 3.0 mg/dL
[2023-08-02 06:40] LABS: Cholesterol 138 mg/dL (200); High Density Lipoprotein 56 mg/dL; Triglycerides 129 mg/dL; Very Low Density Lipoprotein 26 mg/dL (5-40)
[2023-08-02] MEDS: 0.9% Normal Saline (1000mL) 1,000 ML 100 ML IV ×2 (08:18→18:20)
[2023-08-02] MEDS: Isosorbide DN 10 MG Tablet PO (08:27)
[2023-08-02] MEDS: Levothyroxine 112 MCG Tablet 224 MCG PO (08:27)
[2023-08-02] MEDS: Gabapentin 300 MG Capsule PO ×2 (10:18→20:01)
[2023-08-02] MEDS: Enoxaparin 40 MG/0.4 ML Syringe SC (10:20)
[2023-08-02] MEDS: cloNIDine HCl 0.1 MG Tablet 0.100000000000000006 MG PO (10:20)
[2023-08-02] MEDS: Atenolol 100 MG Tablet PO (10:20)
[2023-08-02] MEDS: Pantoprazole Sodium 40 MG Tablet PO ×2 (10:20→20:00)
[2023-08-02] MEDS: amLODIPine 2.5 MG Tablet PO (10:20)
[2023-08-02] MEDS: Fluticasone 0.05% 1 SPRAY NASAL.SRY 2 SPRAY NASAL (10:21)
[2023-08-02] MEDS: DULoxetine Hcl 30 MG Capsule PO ×2 (10:22→20:00)
[2023-08-02] MEDS: Colchicine 0.6 MG TABLET 0.599999999999999978 MG PO (10:23)
[2023-08-02 10:57] LABS: Lactic Acid 3.7 mmol/L (0.4-1.9)
[2023-08-02] MEDS: Ibuprofen 200 MG Tablet PO ×2 (11:17→18:20)
[2023-08-02 11:57] LABS: Bedside Glucose 89 mg/dL (74-106)
[2023-08-02 14:23] LABS: Reflex Lactate? Y
[2023-08-02 15:08] LABS: Lactic Acid 1.9 mmol/L (0.4-1.9)
[2023-08-02 17:22] LABS: Bedside Glucose 98 mg/dL (74-106)
[2023-08-02] MEDS: Aspirin E.C. 81 MG Tablet PO (19:59)
[2023-08-02] MEDS: Montelukast 10 MG Tablet PO (19:59)
[2023-08-02] MEDS: MELATONIN 3 MG TABLET PO (22:09)
[2023-08-02] MEDS: Piperacil/Tazobactam 3.375 GM in 0.9% Normal Saline (50mL MB+) 50 ML IV (22:09)
[2023-08-03 03:00] VITALS: BP 116/60; PULSE 71; RESP 15; TEMP 37; O2SAT 93
[2023-08-03] MEDS: Ibuprofen 200 MG Tablet PO ×2 (03:49→08:37)
[2023-08-03 06:00] VITALS: BMI 31.1
[2023-08-03] MEDS: Levothyroxine 112 MCG Tablet PO (06:18)
[2023-08-03] MEDS: Piperacil/Tazobactam 3.375 GM in 0.9% Normal Saline (50mL MB+) 50 ML IV ×3 (06:18→20:48)
[2023-08-03 06:29] LABS: Absolute Lymphocyte Count 0.78 X10^3/uL (0.83-4.51); Absolute Neutrophil Count 5.4 X10^3/uL (2.0-7.7); Basophil# 0.01 X10^3/uL; Basophil% 0.1 % (0-1); Eosinophil# 0.05 X10^3/uL; Eosinophils% 0.7 % (0-5); Hematocrit 39.6 % (37-47); Hemoglobin 12.3 g/dL (12.0-15.0); Lymphocyte # 0.78 X10^3/ul (0.83-4.51); Lymphocyte % 11.7 % (19-41); Mean Corp Hgb Conc 31.1 g/dL (32-36); Mean Corpuscular Hgb 28.5 pg (27.0-32.0); Mean Corpuscular Volume 91.9 fL (81-99); Mean Platelet Vol. 10.4 fl (6.2-12.0); Monocyte# 0.42 X10^3/uL; Monocyte% 6.3 % (0-10); NRBC Flagged by Analyzer 0 % (0-5); Neutrophil # 5.37 X10^3/uL (2.7-7.7); Neutrophil % 80.6 % (47-70); Platelet Count 191 K/mm3 (150-450); RBC Distribution Width CV 14.7 % (11.6-14.6); RBC Distribution Width SD 49.1 fl (35.1-43.9); Red Blood Count 4.31 M/mm3 (4.2-5.4); White Blood Count 6.7 K/mm3 (4.4-11.0)
[2023-08-03 06:47] LABS: Phosphorus 2.1 mg/dL (2.5-4.9)
[2023-08-03 07:01] LABS: ALB/GLOB Ratio 0.8 RATIO (0.9-2.4); AST(SGOT) 107 U/L (15-37); Alanine Aminotransfer ALT/SGPT 188 U/L (13-56); Albumin, Serum 2.5 g/dL (3.2-5.0); Alkaline Phosphatase 205 U/L (45-117); Anion Gap 5 (5-15); BUN 12 mg/dL (7-18); BUN/Creat Ratio 17.8 RATIO (10-20); Calcium,Total 9.2 mg/dL (8.5-10.1); Chloride 110 mmol/L (98-107); Creatinine, Serum 0.67 mg/dL (0.55-1.02); EST Glomerular Filtration Rate 88 mL/min (>60); Est Glom Filt Rate - Afr Amer 107 mL/min (>60); Estimated Creatinine Clearance 52.55 ml/min; Globulin 3.3 g/dL (2.2-4.2); Glucose 93 mg/dL (74-106); Magnesium 1.6 mg/dL (1.6-2.6); Potassium 3.9 mmol/L (3.5-5.1); Protein, Total 5.8 g/dL (6.4-8.2); Sodium Level 139 mmol/L (136-145); Thyroid Stim Hormone (TSH) 1.94 uIU/mL (0.358-3.74)
[2023-08-03] MEDS: 0.9% Normal Saline (1000mL) 1,000 ML 100 ML IV ×2 (08:01→18:39)
[2023-08-03 08:33] VITALS: BP 156/43; PULSE 70; RESP 16; TEMP 36.9; O2SAT 94
[2023-08-03] MEDS: DULoxetine Hcl 30 MG Capsule PO ×2 (08:36→20:46)
[2023-08-03] MEDS: Atenolol 100 MG Tablet PO (08:37)
[2023-08-03] MEDS: Colchicine 0.6 MG TABLET 0.599999999999999978 MG PO (08:37)
[2023-08-03] MEDS: Pantoprazole Sodium 40 MG Tablet PO ×2 (08:38→20:47)
[2023-08-03] MEDS: cloNIDine HCl 0.1 MG Tablet 0.100000000000000006 MG PO (08:38)
[2023-08-03] MEDS: Fluticasone 0.05% 1 SPRAY NASAL.SRY 2 SPRAY NASAL (08:38)
[2023-08-03] MEDS: Isosorbide DN 10 MG Tablet PO ×3 (08:38→17:12)
[2023-08-03] MEDS: amLODIPine 2.5 MG Tablet PO (08:39)
[2023-08-03] MEDS: Enoxaparin 40 MG/0.4 ML Syringe SC (08:39)
[2023-08-03] MEDS: Magnesium Sulfate 2 GM in Dextrose 5%-Water (100mL Bag) 100 ML IV (08:42)
[2023-08-03] MEDS: Potassium Phosphate 21 MM in 0.9% Normal Saline (250mL Bag) 250 ML 84 MM IV (08:42)
[2023-08-03] MEDS: Gabapentin 300 MG Capsule PO ×2 (08:42→20:46)
[2023-08-03 09:03] LABS: Hepatitis B Surface Antigen Non-Reactive (Nonreactive)
--- NOTE | 2023-08-03 10:50 | PN.HOSP_ITS ---
Subjective Subjective Feels little better, unclear as to where the gram-negative roberto in her blood is coming from Objective Data Objective Data Vital Signs: Vital Signs Temp Pulse Resp BP Pulse Ox O2 Del Method 98.4 F 70 16 156/43 H 94 Room Air 08/03/23 08:33 08/03/23 08:33 08/03/23 08:33 08/03/23 08:33 08/03/23 08:33 08/03/23 08:33 Oxygen Delivery Method Room Air Weight: 182 lb 8.684 oz Body Mass Index (BMI) 31.1 Intake & Output: Intake and Output for Last 24 Hours 08/02/23 08/03/23 08/04/23 03:59 03:59 03:59 Intake Total 0 / 0 2250 / 2250 1151.67 / 1151.67 Output Total 700 / 700 750 / 750 Balance 0 / 0 1550 / 1550 401.67 / 401.67 Lab / Micro Data 08/03/23 05:13 08/03/23 05:13 Labs: Laboratory Results - last 24 hr 08/02/23 10:18: Lactic Acid 3.7 H* 08/02/23 11:39: POC Glucose 89 08/02/23 14:37: Lactic Acid 1.9, Hepatitis A IgM Ab Cancelled, Hep Bs Antigen Cancelled, Hep Bs Ag Confirmation Cancelled, Hep B Surface Ag Comm Cancelled, Hep B Core IgM Ab Cancelled, Hepatitis Interpret Cancelled 08/02/23 16:37: POC Glucose 98 08/03/23 05:13: WBC 6.7, RBC 4.31, Hgb 12.3, Hct 39.6, MCV 91.9, MCH 28.5, MCHC 31.1 L, RDW Std Deviation 49.1 H, RDW Coeff of Sravan 14.7 H, Plt Count 191, MPV 10.4, Immature Gran % (Auto) 0.600, Neut % (Auto) 80.6 H, Lymph % (Auto) 11.7 L, [place] % (Auto) 6.3, Eos % (Auto) 0.7, Baso % (Auto) 0.1, Absolute Neuts (auto) 5.4, Absolute Lymphs (auto) 0.78 L, Nucleated RBC % 0, Sodium 139, Potassium 3.9, Chloride 110 H, Carbon Dioxide 24.0, Anion Gap 5, BUN 12, Creatinine 0.67, Estim Creat Clear Calc 52.55, Est GFR (MDRD) Af Amer 107, Est GFR (MDRD) Non-Af 88, BUN/Creatinine Ratio 17.8, Glucose 93, Calcium 9.2, Phosphorus 2.1 L, Ma gnesium 1.6, Total Bilirubin 2.50 H, AST 107 H, ALT 188 H, Alkaline Phosphatase 205 H, Total Protein 5.8 L, Albumin 2.5 L, Globulin 3.3, Albumin/Globulin Ratio 0.8 L, TSH 1.94, Hep Bs Antigen Non-Reactive Micro: Microbiology 08/01/23 23:03 Urine, Clean Catch Urine Culture - Preliminary Gram negative roberto 08/02/23 04:40 Blood Culture (Wb) - Anticubital Right Blood Culture - 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 08/01/23 22:55 Mucosa - Nose SARS-CoV-2, Influenza & RSV (PCR) - Final Physical Exam Narrative General: Alert, Oriented x3, Cooperative, No apparent distress HEENT: Atraumatic, PERRLA, EOMI, Normocephalic Oral: Moist Mucosa Neck: Supple, No JVD Lungs: Diminished, Normal air movement, No rhonchi, No wheeze, No rales Cardiovascular: Regular rate, Regular Rhythm, Normal S1, Normal S2, No murmurs Abdomen: Soft, Non Tender, Non-Distended, No Hepato-splenomegaly Extremities: No edema, Capillary Refill Less than 3 Seconds Skin: No rashes, No breakdown Musculoskeletal: No Tenderness to Palpation of Joints or Extremities Neurological: No focal neurological deficits, Motor Exam 5/5 strength throughout, Sensory exam intact to light touch and pain Psych/Mental Status: Normal Affect, Appropriate Assessment & Plan Assessment/Plan (1) Adverse drug reaction: QUALIFIERS: Encounter type: initial encounter Qualified Code(s): T50.905A - Adverse effect of unspecified drugs, medicaments and biological substances, initial encounter (2) Acute lactic acidosis: (3) Transaminitis: (4) Hypokalemia: (5) Generalized weakness: PLAN: Plan 1. Metformin induced lactic acidosis with gram-negative roberto bacteremia ? Continue with IV fluids and hold her metformin ? Unclear as to the source for her gram-negative roberto bacteremia, cultures are still pending ? Urine was unremarkable and chest imaging was also normal. ? She did have a hyperbilirubinemia CT scan of her abdomen was negative for any liver changes. A hepatitis panel is pending ? PT/OT for evaluation and discharge planning 2. Essential HTN/HLD ? Continue with her home blood pressure medications ? We will monitor make adjustments as necessary ? We will hold her statin secondary to her hyperbilirubinemia and elevated LFTs, will trend to see if the LFTs improve 3. DM2 ? Will hold metformin given lactic acidosis ? Continue with insulin ? Accu-Cheks ? We will monitor make adjustments as necessary 4. Hypothyroidism ? Stable ? Continue with Synthroid 5. Anxiety/depression ? Stable/continue with her home medications 6. GERD ? Stable ? Continue with PPI DVT: Lovenox Charges/Coding Visit Charges Inpatient E&M: 53968 Subs Hosp L2
[2023-08-03 11:24] VITALS: O2SAT 95
--- NOTE | 2023-08-03 13:03 | CASEMGMT ---
MARINANE SIMONS Assessment Face to Face with patient for initial transition planning/care coordination assessment. MARIANNE SIMONS introduced self and role at [facility], pt voices understanding. Pt is A&Ox4 and is resting comfortably in bed and is calm. Care providers, pharmacy, and demographics verified. Admitting dx: Metformin Induced Lactic Acidosis LACE Strata:2 PCP: Linda Specialists: Dr. Garza. Pt states she sees Pain Management as well. Pt denies seeing an medical specialist. [facility]acy[facility] Insurance: [employer] Prescription Benefit: Yes LNOK: Sena Diane (Daughter), Lizzy Carbone (Daughter) Living Arrangements: Pt lives with her in a single story home with a BM with HR and 2 steps to enter the home with HR. Pt states that she does not have any issues entering the home but she does not go down to the BM. ADLs/IADLs: Ind with ADLs, helps with IADLs Transportation: Pt DME: Pt has a cane at home. Pt states that she uses a walker around the home and a WC for the community. States walk-in shower with chair and GB. Raised toilet seat. Pt states that she has a BGM and enough supplies to check her BS. HHC/SNF: History in 2022 at the [facility]. Denies HHC history or needs. Pt states she has been to multiple oupt facilities and I am not going back. Pt?s goal: Home with Plan: 6-Click is 18 now. PT/OT eval pending. Pt states that she is going to be going home after this. Pt refused SNF, HHC, and OP therapy at this time. Cynthia Francis RN, CM
[2023-08-03 14:12] VITALS: BP 129/44; PULSE 52; RESP 14; TEMP 36.3; O2SAT 95
[2023-08-03 15:46] LABS: Pathologist Review Reviewed
[2023-08-03 20:23] VITALS: BP 172/63; PULSE 58; RESP 18; TEMP 37; O2SAT 97
[2023-08-03] MEDS: MELATONIN 3 MG TABLET PO (20:46)
[2023-08-03] MEDS: Aspirin E.C. 81 MG Tablet PO (20:47)
[2023-08-03] MEDS: Montelukast 10 MG Tablet PO (20:47)
[2023-08-04 02:15] VITALS: BP 167/59; PULSE 56; RESP 16; TEMP 36.9; O2SAT 95
[2023-08-04] MEDS: Ibuprofen 200 MG Tablet PO ×2 (02:21→20:56)
[2023-08-04 02:46] VITALS: BMI 32.0
[2023-08-04] MEDS: Levothyroxine 112 MCG Tablet PO (05:20)
[2023-08-04] MEDS: 0.9% Normal Saline (1000mL) 1,000 ML 100 ML IV ×2 (05:20→13:51)
[2023-08-04] MEDS: Piperacil/Tazobactam 3.375 GM in 0.9% Normal Saline (50mL MB+) 50 ML IV (05:20)
[2023-08-04 06:47] LABS: Bedside Glucose 101 mg/dL (74-106)
[2023-08-04 07:08] LABS: Hepatitis A IgM Antibody Negative (Negative); Hepatitis B Core AB IgM Negative (Negative)
[2023-08-04 07:32] VITALS: O2SAT 95
[2023-08-04 07:34] VITALS: BP 170/45; PULSE 52; RESP 14; TEMP 36.8; O2SAT 96
[2023-08-04 07:51] LABS: Absolute Lymphocyte Count 0.83 X10^3/uL (0.83-4.51); Basophil# 0.01 X10^3/uL; Basophil% 0.2 % (0-1); Eosinophil# 0.05 X10^3/uL; Hematocrit 37.6 % (37-47); Hemoglobin 12.1 g/dL (12.0-15.0); Lymphocyte # 0.83 X10^3/ul (0.83-4.51); Mean Corp Hgb Conc 32.2 g/dL (32-36); Mean Corpuscular Hgb 29.2 pg (27.0-32.0); Mean Corpuscular Volume 90.8 fL (81-99); Mean Platelet Vol. 10.1 fl (6.2-12.0); Monocyte# 0.26 X10^3/uL; NRBC Flagged by Analyzer 0 % (0-5); Neutrophil # 4.01 X10^3/uL (2.7-7.7); Neutrophil % 77.2 % (47-70); Platelet Count 183 K/mm3 (150-450); RBC Distribution Width CV 14.5 % (11.6-14.6); RBC Distribution Width SD 48.4 fl (35.1-43.9); Red Blood Count 4.14 M/mm3 (4.2-5.4); White Blood Count 5.2 K/mm3 (4.4-11.0)
[2023-08-04] MEDS: Gabapentin 300 MG Capsule PO ×2 (08:12→20:56)
[2023-08-04] MEDS: amLODIPine 2.5 MG Tablet PO (08:13)
[2023-08-04] MEDS: DULoxetine Hcl 30 MG Capsule PO ×2 (08:13→20:55)
[2023-08-04] MEDS: Enoxaparin 40 MG/0.4 ML Syringe SC (08:13)
[2023-08-04] MEDS: Pantoprazole Sodium 40 MG Tablet PO ×2 (08:13→20:57)
[2023-08-04] MEDS: Atenolol 100 MG Tablet PO (08:13)
[2023-08-04] MEDS: Colchicine 0.6 MG TABLET 0.599999999999999978 MG PO (08:13)
[2023-08-04] MEDS: cloNIDine HCl 0.1 MG Tablet 0.100000000000000006 MG PO (08:13)
[2023-08-04] MEDS: Menthol/Lanolin/Calamine/Znox 113 GM Tube 1 APPLIC TOPICAL ×2 (08:14→20:55)
[2023-08-04 08:16] LABS: Anion Gap 4 (5-15); BUN 11 mg/dL (7-18); BUN/Creat Ratio 17.1 RATIO (10-20); Calcium,Total 9.7 mg/dL (8.5-10.1); Chloride 114 mmol/L (98-107); Creatinine, Serum 0.64 mg/dL (0.55-1.02); EST Glomerular Filtration Rate 93 mL/min (>60); Est Glom Filt Rate - Afr Amer 113 mL/min (>60); Estimated Creatinine Clearance 53.28 ml/min; Glucose 99 mg/dL (74-106); Sodium Level 142 mmol/L (136-145)
--- NOTE | 2023-08-04 09:14 | PN.HOSP_ITS ---
Subjective Subjective Feeling better unfortunately urine cultures Enterobacter and blood cultures Klebsiella Objective Data Objective Data Vital Signs: Vital Signs Temp Pulse Resp BP Pulse Ox O2 Del Method 98.2 F 52 L 14 170/45 H 96 Room Air 08/04/23 07:34 08/04/23 07:34 08/04/23 07:34 08/04/23 07:34 08/04/23 07:34 08/04/23 08:15 Oxygen Delivery Method Room Air Weight: 187 lb 9.6 oz Body Mass Index (BMI) 32.0 Intake & Output: Intake and Output for Last 24 Hours 08/03/23 08/04/23 08/05/23 03:59 03:59 03:59 Intake Total 2250 / 2250 3237.67 / 3237.67 1400 / 1400 Output Total 700 / 700 1850 / 1850 1400 / 1400 Balance 1550 / 1550 1387.67 / 1387.67 0 / 0 Lab / Micro Data 08/04/23 07:00 08/04/23 07:00 Labs: Laboratory Results - last 24 hr 08/01/23 22:40: Diff Path Review Reviewed 08/02/23 14:37: Hepatitis A IgM Ab Negative, Hep B Core IgM Ab Negative 08/04/23 06:28: POC Glucose 101 08/04/23 07:00: WBC 5.2, RBC 4.14 L, Hgb 12.1, Hct 37.6, MCV 90.8, MCH 29.2, MCHC 32.2, RDW Std Deviation 48.4 H, RDW Coeff of Sravan 14.5, Plt Count 183, MPV 10.1, Immature Gran % (Auto) 0.600, Neut % (Auto) 77.2 H, Lymph % (Auto) 16.0 L, [place] % (Auto) 5.0, Eos % (Auto) 1.0, Baso % (Auto) 0.2, Absolute Neuts (auto) 4 .0, Absolute Lymphs (auto) 0.83, Nucleated RBC % 0, Sodium 142, Potassium 4.0, Chloride 114 H, Carbon Dioxide 24.0, Anion Gap 4 L, BUN 11, Creatinine 0.64, Estim Creat Clear Calc 53.28, Est GFR (MDRD) Af Amer 113, Est GFR (MDRD) Non-Af 93, BUN/Creatinine Ratio 17.1, Glucose 99, Calcium 9.7 Micro: Microbiology 08/02/23 05:54 Blood Culture (Wb) - Venous Blood Culture - Final GNR 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 08/02/23 04:40 Blood Culture (Wb) - Anticubital Right Blood Culture - Final Klebsiella pneumoniae sp pneum 08/01/23 23:03 Urine, Clean Catch Urine Culture - Final Enterobacter cloacae complex 08/01/23 22:55 Mucosa - Nose SARS-CoV-2, Influenza & RSV (PCR) - Final Physical Exam Narrative General: Alert, Oriented x3, Cooperative, No apparent distress HEENT: Atraumatic, PERRLA, EOMI, Normocephalic Oral: Moist Mucosa Neck: Supple, No JVD Lungs: Diminished, Normal air movement, No rhonchi, No wheeze, No rales Cardiovascular: Regular rate, Regular Rhythm, Normal S1, Normal S2, No murmurs Abdomen: Soft, Non Tender, Non-Distended, No Hepato-splenomegaly Extremities: No edema, Capillary Refill Less than 3 Seconds Skin: No rashes, No breakdown Musculoskeletal: No Tenderness to Palpation of Joints or Extremities Neurological: No focal neurological deficits, Motor Exam 5/5 strength throughout, Sensory exam intact to light touch and pain Psych/Mental Status: Normal Affect, Appropriate Assessment & Plan Assessment/Plan (1) Adverse drug reaction: QUALIFIERS: Encounter type: initial encounter Qualified Code(s): T50.905A - Adverse effect of unspecified drugs, medicaments and biological substances, initial encounter (2) Acute lactic acidosis: (3) Transaminitis: (4) Hypokalemia: (5) Generalized weakness: PLAN: Plan 1. Metformin induced lactic acidosis with Klebsiella bacteremia and Enterobacter UTI ? Continue with IV fluids and hold her metformin ? Continue with Cipro ? Urine was unremarkable however urine culture was positive for Enterobacter and chest imaging was also normal. ? She did have a hyperbilirubinemia CT scan of her abdomen was negative for any liver changes. A hepatitis panel is pending, there was some small bowel dilatation potentially due to gastroenteritis which could be the the location of the Klebsiella ? PT/OT for evaluation and discharge planning 2. Essential HTN/HLD ? Continue with her home blood pressure medications ? We will monitor make adjustments as necessary ? We will hold her statin secondary to her hyperbilirubinemia and elevated LFTs, will trend to see if the LFTs improve 3. DM2 ? Will hold metformin given lactic acidosis ? Continue with insulin ? Accu-Cheks ? We will monitor make adjustments as necessary 4. Hypothyroidism ? Stable ? Continue with Synthroid 5. Anxiety/depression ? Stable/continue with her home medications 6. GERD ? Stable ? Continue with PPI DVT: Lovenox Charges/Coding Visit Charges Inpatient E&M: 08962 Subs Hosp L2
[2023-08-04] MEDS: Ciprofloxacin 500 MG Tablet PO ×2 (11:19→20:55)
[2023-08-04 11:46] VITALS: BP 145/45; PULSE 48; RESP 14; TEMP 36.3; O2SAT 95
[2023-08-04 11:58] LABS: Bedside Glucose 124 mg/dL (74-106)
[2023-08-04 13:47] VITALS: BP 151/43; PULSE 51; RESP 14; TEMP 36; O2SAT 96
--- NOTE | 2023-08-04 15:55 | CASEMGMT ---
Addendum entered by Lilo Gonsalez 08/04/23 16:08: Call placed to [facility] to make referral for HH PT/OT. They will review and call this CM back. Lilo Gonsalez MSN, RN, CCM Original Note: RN CM in to see pt. Discussed with pt discharge planning. Pt reports she will not DC to a SNF. Pt reports being in a SNF in the recent past and that it was a horrible experience. Pt reports she has had HHC and OP PT/OT in the past but does not feel that it is needed. Discussed DME used in the home. Pt reports she primarily uses her walker but can use her w/c if needed. Pt reports her home has sufficient space for the w/c. Pt reports spouse helps with any ADLs when needed. Attending entered the room to speak with pt during conversation. Attending discussed the need for PT eval and possibly SNF vs HHC with pt. Pt still declining SNF but agreeable to work with PT in AM and agreeable to C. Pt declined HHC list and requests [facility]. Lilo Gonsalez MSN, RN, CCM
[2023-08-04 17:20] LABS: Bedside Glucose 164 mg/dL (74-106)
[2023-08-04 20:35] VITALS: BP 127/55; PULSE 55; RESP 18; TEMP 36.6; O2SAT 97
[2023-08-04] MEDS: Loperamide 2 MG Capsule PO (20:55)
[2023-08-04] MEDS: Aspirin E.C. 81 MG Tablet PO (20:56)
[2023-08-04] MEDS: MELATONIN 3 MG TABLET PO (20:56)
[2023-08-04] MEDS: Montelukast 10 MG Tablet PO (20:56)
[2023-08-04 23:05] LABS: Bedside Glucose 125 mg/dL (74-106)
[2023-08-05] MEDS: 0.9% Normal Saline (1000mL) 1,000 ML 100 ML IV (00:02)
[2023-08-05 03:21] VITALS: BP 161/37; PULSE 54; RESP 20; TEMP 36.5; O2SAT 95
[2023-08-05] MEDS: Levothyroxine 112 MCG Tablet PO (03:29)
[2023-08-05 06:00] VITALS: BMI 32.0
[2023-08-05 06:59] VITALS: BP 133/58; PULSE 50; RESP 18; TEMP 36.5; O2SAT 96
[2023-08-05 07:22] LABS: Bedside Glucose 93 mg/dL (74-106)
[2023-08-05 08:21] VITALS: O2SAT 95
[2023-08-05 09:11] LABS: ALB/GLOB Ratio 0.6 RATIO (0.9-2.4); AST(SGOT) 27 U/L (15-37); Alanine Aminotransfer ALT/SGPT 84 U/L (13-56); Albumin, Serum 2.3 g/dL (3.2-5.0); Alkaline Phosphatase 220 U/L (45-117); Anion Gap 2 (5-15); BUN 9 mg/dL (7-18); BUN/Creat Ratio 14.8 RATIO (10-20); Calcium,Total 9.5 mg/dL (8.5-10.1); Chloride 114 mmol/L (98-107); Creatinine, Serum 0.61 mg/dL (0.55-1.02); EST Glomerular Filtration Rate 99 mL/min (>60); Est Glom Filt Rate - Afr Amer 120 mL/min (>60); Estimated Creatinine Clearance 53.28 ml/min; Globulin 3.9 g/dL (2.2-4.2); Glucose 98 mg/dL (74-106); Potassium 3.5 mmol/L (3.5-5.1); Protein, Total 6.2 g/dL (6.4-8.2); Sodium Level 142 mmol/L (136-145)
--- NOTE | 2023-08-05 09:26 | DCINST_ITS ---
Discharge Instructions Diet Discharge Diet: Low fat / Low cholesterol Activity Discharge Activity: Return to Normal Activity Dressing / Incision Call your doctor if you observe: Fever of 101 or Higher, Shortness of breath, Dizziness, Fainting spells, Swelling in the ankles, Chest pain and Increased palpitations (irregular heartbeat) Follow Up Care Test Results: Test results from this visit will be discussed in further detail at your follow- up appointment, if applicable. Discharge Plan Admission Admit Date/Time: 08/02/23 05:44 Attending Provider: Jeremy Bynum Primary Care Provider: Carin Mckeon Consulting Providers: Fodr Yang Instructions Additional Instructions / Restrictions: Follow-up with your primary care doctor in 3 to 5 days to evaluate continued improvement. Also if you do in the future develop nausea or vomiting do not take your metformin until you are able to hold liquids down. Discharge Orders/Prescriptions Prescriptions: New ciprofloxacin HCl 500 mg Tablet 500 mg PO BID 10 Days Qty: 20 0RF Continued cyanocobalamin (vitamin B-12) 1,000 mcg/mL kit 1,000 mcg IM QMONTH Rx Instructions: 08-11-22 1ml [id number] q 1 week for 2 weeks, then every 2 weeks for 8 weeks then once a month atorvastatin 20 mg tablet 20 mg PO DAILY metformin 500 mg tablet 500 mg PO DAILY colchicine 0.6 mg tablet 0.6 mg PO DAILY Qty: 30 8RF atenolol 100 MG tablet 100 mg PO DAILY aspirin 81 MG tablet 81 mg PO QHS montelukast 10 MG tablet 10 mg PO QHS levothyroxine 112 MCG tablet 224 mcg PO SUSA Patient Comments: thursday levothyroxine 112 mcg tablet 112 mcg PO DAILY Rx Instructions: take one tablet daily and take two tablets on Saturdays and Thursday starting 07-11-22 gabapentin 300 MG capsule 300 mg PO BID duloxetine 30 MG capsule 30 mg PO BID clonidine HCl 0.1 MG tablet 0.1 mg PO DAILY amlodipine 2.5 MG tablet 2.5 mg PO DAILY cholecalciferol (vitamin D3) 2,000 UNIT tablet,chewable 8,000 unit PO DAILY loperamide 2 MG capsule 2 mg PO TID PRN (Reason: diarrhea') dicyclomine 10 mg capsule 10 mg PO Q6H PRN PRN (Reason: abdominal discomfort) Qty: 20 0RF mometasone 50 mcg/actuation [place],Non-Aerosol 2 spray INTRANASAL DAILY Rx Instructions: administer into each nostril isosorbide dinitrate 10 mg Tablet 10 mg PO TIDCM Qty: 0 0RF fexofenadine 180 MG tablet 180 mg PO QHS PRN (Reason: allergic rhinits) Qty: 3 0RF esomeprazole magnesium [Nexium] 40 mg capsule,delayed release(DR/EC) 40 mg PO TID Referrals / Follow Up: Carin Mckeon DO [Primary Care Provider] - Within 1 Week Disposition Disposition (needs filled in before D/C Order can be placed): Home, Self Care
[2023-08-05] MEDS: Isosorbide DN 10 MG Tablet PO (09:55)
[2023-08-05] MEDS: Pantoprazole Sodium 40 MG Tablet PO (09:56)
[2023-08-05] MEDS: Ciprofloxacin 500 MG Tablet PO (09:56)
[2023-08-05] MEDS: Colchicine 0.6 MG TABLET 0.599999999999999978 MG PO (09:56)
[2023-08-05] MEDS: Atenolol 100 MG Tablet PO (09:56)
[2023-08-05] MEDS: DULoxetine Hcl 30 MG Capsule PO (09:57)
[2023-08-05] MEDS: Menthol/Lanolin/Calamine/Znox 113 GM Tube 1 APPLIC TOPICAL (09:57)
[2023-08-05] MEDS: cloNIDine HCl 0.1 MG Tablet 0.100000000000000006 MG PO (09:57)
[2023-08-05] MEDS: amLODIPine 2.5 MG Tablet PO (09:58)
--- NOTE | 2023-08-05 10:00 | CASEMGMT ---
MARIANNE SIMONS placed call to [facility] for an update on C referral, VM left. MARIANNE SIMONS placed called to therapy to discuss pt being seen today prior to DC. Lilo Gonsalez MSN, RN, CCM
[2023-08-05] MEDS: Gabapentin 300 MG Capsule PO (10:03)
--- NOTE | 2023-08-05 10:07 | PHA.DC_ITS ---
Pharmacy [facility] has performed discharge medication reconciliation and counseling for this patient. 1. CIPROFLOXACIN 500MG PO BID x 10 DAYS The patient's discharge medication list was reviewed for discrepancies and discrepancies were resolved. The patient was counseled on the following discharge medications and changes in medications for homegoing were reviewed. The Reason for Use, instructions for use, and potential side effects were reviewed for all new medications. The patient's questions regarding all of their medications were answered. The patient was able to verbally demonstrate an understanding of their discharge medications. Patient counseled by pharmacy clinical specialistKhoa. Medications at Discharge Home Medications aspirin 81 mg tablet,delayed release 81 mg PO QHS HRT 07/10/15 atenolol 100 mg tablet 100 mg PO DAILY bp 07/10/15 levothyroxine 112 mcg tablet 224 mcg PO SUSA THYROID 07/10/15 montelukast 10 mg tablet 10 mg PO QHS ALLERGY 07/10/15 gabapentin 300 mg capsule 300 mg PO BID NERVE PAIN 02/16/17 duloxetine 30 mg capsule,delayed release 30 mg PO BID DEPRESSION 07/08/18 amlodipine 2.5 mg tablet 2.5 mg PO DAILY BP 07/29/19 cholecalciferol (vitamin D3) 50 mcg (2,000 unit) chewable tablet 8,000 unit PO DAILY SUPPLEMENT 07/29/19 clonidine HCl 0.1 mg tablet 0.1 mg PO DAILY BP 07/29/19 loperamide 2 mg capsule 2 mg PO TID PRN diarrhea' 08/08/20 dicyclomine 10 mg capsule 10 mg PO Q6H PRN PRN abdominal discomfort #20 CAPSULES 01/17/22 mometasone 50 mcg/actuation nasal spray 2 spray intranasal DAILY nasal spray 02/02/22 fexofenadine 180 mg tablet 180 mg PO QHS PRN allergic rhinits #3 tabs 02/04/22 isosorbide dinitrate 10 mg tablet 10 mg PO TIDCM #0 tabs 02/04/22 atorvastatin 20 mg tablet 20 mg PO DAILY 09/23/22 cyanocobalamin (vitamin B-12) 1,000 mcg/mL injection kit 1,000 mcg IM QMONTH 09/23/22 levothyroxine 112 mcg tablet 112 mcg PO DAILY THYROID 09/23/22 metformin 500 mg tablet 500 mg PO DAILY 09/23/22 colchicine 0.6 mg tablet 0.6 mg PO DAILY #30 tabs 01/23/23 esomeprazole magnesium 40 mg capsule,delayed release (Nexium) 40 mg PO TID 08/02/23 ciprofloxacin HCl 500 mg tablet 500 mg PO BID 10 days #20 tabs 08/05/23
--- NOTE | 2023-08-05 10:45 | CASEMGMT ---
RN KRISTYN spoke with [facility] concerning referral for HHC. [facility] is able to accept and SOC is on 08/06/2023. [facility] has already spoken with pt to confirm she is agreeable to [facility]. Lilo MANCINI, RN, CCM
--- NOTE | 2023-08-05 11:56 | CASEMGMT ---
Social Work SW met with pt to discuss advance directives.? Pt confirms she has completed a health care POA naming her daughter Sena Diane.? Pt notified that document is not on file at [facility] and SW requested it be brought in for scanning into the EMR.? DIONY Elizondo
[2023-08-05 12:00] VITALS: BP 183/51; PULSE 89; RESP 16; TEMP 36.9; O2SAT 94
--- NOTE | 2023-08-05 12:37 | NURSING ---
pt dressed and showered and up in chair. dc instructions given to pt and with no questions.
--- NOTE | 2023-08-05 13:21 | DS.PCM_ITS ---
Providers Date of Admission: 08/02/23 Primary Care Physician: Dr. Carin Mckeon DO Reason For Visit: METFORMIN INDUCED LACTIC ACIDOSIS W/ELEVATED LIVER Diagnosis Discharge Diagnosis (1) Adverse drug reaction: Status: Acute Code(s): T50.905A - Adverse effect of unspecified drugs, medicaments and biological substances, initial encounter Qualifiers: Encounter type: initial encounter Qualified Code(s): T50.905A - Adverse effect of unspecified drugs, medicaments and biological substances, initial encounter (2) Acute lactic acidosis: Status: Acute Code(s): E87.21 - Acute metabolic acidosis (3) Transaminitis: Status: Acute Code(s): R74.01 - Elevation of levels of liver transaminase levels (4) Hypokalemia: Status: Acute Code(s): E87.6 - Hypokalemia (5) Generalized weakness: Status: Acute Code(s): R53.1 - Weakness Medications at Discharge Home Medications aspirin 81 mg tablet,delayed release 81 mg PO QHS HRT 07/10/15 atenolol 100 mg tablet 100 mg PO DAILY bp 07/10/15 levothyroxine 112 mcg tablet 224 mcg PO SUSA THYROID 07/10/15 montelukast 10 mg tablet 10 mg PO QHS ALLERGY 07/10/15 gabapentin 300 mg capsule 300 mg PO BID NERVE PAIN 02/16/17 duloxetine 30 mg capsule,delayed release 30 mg PO BID DEPRESSION 07/08/18 amlodipine 2.5 mg tablet 2.5 mg PO DAILY BP 07/29/19 cholecalciferol (vitamin D3) 50 mcg (2,000 unit) chewable tablet 8,000 unit PO DAILY SUPPLEMENT 07/29/19 clonidine HCl 0.1 mg tablet 0.1 mg PO DAILY BP 07/29/19 loperamide 2 mg capsule 2 mg PO TID PRN diarrhea' 08/08/20 dicyclomine 10 mg capsule 10 mg PO Q6H PRN PRN abdominal discomfort #20 CAPSULES 01/17/22 mometasone 50 mcg/actuation nasal spray 2 spray intranasal DAILY nasal spray 02/02/22 fexofenadine 180 mg tablet 180 mg PO QHS PRN allergic rhinits #3 tabs 02/04/22 isosorbide dinitrate 10 mg tablet 10 mg PO TIDCM #0 tabs 08/23/22 atorvastatin 20 mg tablet 20 mg PO DAILY 09/23/22 cyanocobalamin (vitamin B-12) 1,000 mcg/mL injection kit 1,000 mcg IM QMONTH 09/23/22 levothyroxine 112 mcg tablet 112 mcg PO DAILY THYROID 09/23/22 metformin 500 mg tablet 500 mg PO DAILY 09/23/22 colchicine 0.6 mg tablet 0.6 mg PO DAILY #30 tabs 01/23/23 esomeprazole magnesium 40 mg capsule,delayed release (Nexium) 40 mg PO TID 08/02/23 ciprofloxacin HCl 500 mg tablet 500 mg PO BID 10 days #20 tabs 08/05/23 Hospital Course Operations None Procedures None Summary of Care Provided Minutes Spent on Discharge: 37 Hospital Course: Per HPI: KARRIE DAVID, is a 87 F with a past medical history of essential hypertension, hyperlipidemia; on atorvastatin, hypothyroidism, obesity; with BMI of 32.7 this admission, diabetes mellitus type 2; of unknown control on Metformin, remote history of tobacco abuse; with subsequent asthma/COPD, breast cancer; status post bilateral mastectomies (2018), history of elevated liver function tests, history of cholecystectomy, depression with anxiety, GERD, gout, osteoarthritis; with history of laminectomy and decompression, history of left p artial knee replacement,, irritable bowel syndrome and history of frequent UTIs who presents to [facility] ER complaining of fevers, sweats and generalized weakness. Ms. David reports her symptoms began approximately 1 day prior to admission with the abrupt onset of generalized weakness that was continuous along with a subjective fever and was made worse by nothing but was relieved by Tylenol. The patient thought that she was developing a UTI because she has had similar symptoms in the past with this diagnosis but she denies associated dysuria, hematuria or urinary frequency. She also admits to an episode of nausea with dry heaves earlier in the evening along with back pain and neck ache but she denies vomiting, chest pain, shortness of breath, jaundice, rash, diarrhea or constipation. She denies excessive alcohol use or excessive Tylenol use. In the ER she was noted to have an initial lactate elevated at 2.2 mmol/L that oxana to 3.5 mmol/L approximately four hours later due to suspected Metformin-induced Lactic Acidosis complicated by Hyperbilirubinemia (with total bilirubin of 2.2 mg/dL and direct bilirubin of 1.43 mg/dL present on admission) with elevated AST 723 U/L, ALT 453 and Alkaline Phosphatase 257 U/L due to suspected Adverse Drug Reaction to Atorvastatin with Hypokalemia of 3.2 mmol/L present on admission and a UA positive for evidence of colonization but not acute infection and a CT scan of the abdomen and pelvis that was unremarkable for acute pathologic changes and she was then admitted to the general medical floor for ongoing care for a stay that is expected to be greater than 48 hours. Hospital Course: 1. Lactic acidosis secondary to continued metformin use in the setting of nausea and vomiting with dehydration with a Klebsiella bacteremia?87-year-old female presented to the hospital with fevers and generalized weakness as well as nausea and vomiting. She is on metformin at home which she continued to take while not feeling well. Initially there was not any significant signs of an infectious etiology her UA was fairly unremarkable though it did end up growing Enterobacter and her blood ended up growing Klebsiella both of which were sensitive to ciprofloxacin. CT scan of her abdomen and pelvis did demonstrate signs of a possible enteritis though there is no significant inflammation which is likely the origin of her Klebsiella bacteremia. She did steadily improve throughout her hospitalization and on the day of discharge was evaluated by physical therapy without needing any additional therapy at a SNF. I discussed with her and her daughter the plan for discharge today they both expressed understanding of the risk benefits of going home and she was okay with going home today. She did have some elevated LFTs on admission however CT scan did not show any liver pathology. I do recommend outpatient follow-up with her PCP in 3 to 5 days. 2. Type 2 diabetes? It is okay for her to resume her metformin, her renal function is back to baseline and I discussed with her the need to not take her metformin if she is not having adequate oral intake 3. Hypothyroidism, anxiety, depression, GERD, essential hypertension, hyperlipidemia are all chronic medical conditions which complicate her care. Her home medications were continued where appropriate Physical Exam Narrative General: Alert, Oriented x3, Cooperative, No apparent distress HEENT: Atraumatic, PERRLA, EOMI, Normocephalic Oral: Moist Mucosa Neck: Supple, No JVD Lungs: Diminished, Normal air movement, No rhonchi, No wheeze, No rales Cardiovascular: Regular rate, Regular Rhythm, Normal S1, Normal S2, No murmurs Abdomen: Soft, Non Tender, Non-Distended, No Hepato-splenomegaly Extremities: No edema, Capillary Refill Less than 3 Seconds Skin: No rashes, No breakdown Musculoskeletal: No Tenderness to Palpation of Joints or Extremities Neurological: No focal neurological deficits, Motor Exam 5/5 strength throughout, Sensory exam intact to light touch and pain Psych/Mental Status: Normal Affect, Appropriate Weight / BMI Weight Weight: 187 lb 9.814 oz Body Mass Index (BMI) 32.0 ABG / Lab / Microbiology Data 08/04/23 07:00 08/05/23 08:05 Laboratory: Laboratory Results - last 24 hr 08/04/23 17:00: POC Glucose 164 H 08/04/23 20:52: POC Glucose 125 H 08/05/23 07:03: POC Glucose 93 08/05/23 08:05: Sodium 142, Potassium 3.5, Chloride 114 H, Carbon Dioxide 26.0, Anion Gap 2 L, BUN 9, Creatinine 0.61, Estim Creat Clear Calc 53.28, Est GFR (MDRD) Af Amer 120, Est GFR (MDRD) Non-Af 99, BUN/Creatinine Ratio 14.8, Glucose 98, Calcium 9.5, Total Bilirubin 1.00, AST 27, ALT 84 H, Alkaline Phosphatase 220 H, Total Protein 6.2 L, Albumin 2.3 L, Globulin 3.9, Albumin/Globulin Ratio 0.6 L Microbiology: Microbiology 08/02/23 05:54 Blood Culture (Wb) - Venous Blood Culture - Final GNR lactose watch band assembler 08/02/23 04:40 Blood Culture (Wb) - Anticubital Right Blood Culture - Final Klebsiella pneumoniae sp pneum 08/01/23 23:03 Urine, Clean Catch Urine Culture - Final Enterobacter cloacae complex 08/01/23 22:55 Mucosa - Nose SARS-CoV-2, Influenza & RSV (PCR) - Final D/C Instructions Discharge Diet: Low fat / Low cholesterol Call your doctor if you observe: Fever of 101 or Higher, Shortness of breath, Dizziness, Fainting spells, Swelling in the ankles, Chest pain and Increased palpitations (irregular heartbeat) Meaningful Use Info Meaningful Use Diagnoses (Choose all that apply): None applicable Discharge Plan Admission Admit Date/Time: 08/02/23 05:44 Attending Provider: Jeremy Bynum Primary Care Provider: Carin Mckeon Consulting Providers: Ford Yang Instructions Additional Instructions / Restrictions: Follow-up with your primary care doctor in 3 to 5 days to evaluate continued improvement. Also if you do in the future develop nausea or vomiting do not take your metformin until you are able to hold liquids down. Discharge Orders/Prescriptions Prescriptions: New ciprofloxacin HCl 500 mg Tablet 500 mg PO BID 10 Days Qty: 20 0RF Continued cyanocobalamin (vitamin B-12) 1,000 mcg/mL kit 1,000 mcg IM QMONTH Rx Instructions: 08-11-22 1ml [id number] q 1 week for 2 weeks, then every 2 weeks for 8 weeks then once a month atorvastatin 20 mg tablet 20 mg PO DAILY metformin 500 mg tablet 500 mg PO DAILY colchicine 0.6 mg tablet 0.6 mg PO DAILY Qty: 30 8RF atenolol 100 MG tablet 100 mg PO DAILY aspirin 81 MG tablet 81 mg PO QHS montelukast 10 MG tablet 10 mg PO QHS levothyroxine 112 MCG tablet 224 mcg PO SUSA Patient Comments: thursday levothyroxine 112 mcg tablet 112 mcg PO DAILY Rx Instructions: take one tablet daily and take two tablets on Saturdays and Thursday starting 07-11-22 gabapentin 300 MG capsule 300 mg PO BID duloxetine 30 MG capsule 30 mg PO BID clonidine HCl 0.1 MG tablet 0.1 mg PO DAILY amlodipine 2.5 MG tablet 2.5 mg PO DAILY cholecalciferol (vitamin D3) 2,000 UNIT tablet,chewable 8,000 unit PO DAILY loperamide 2 MG capsule 2 mg PO TID PRN (Reason: diarrhea') dicyclomine 10 mg capsule 10 mg PO Q6H PRN PRN (Reason: abdominal discomfort) Qty: 20 0RF mometasone 50 mcg/actuation [place],Non-Aerosol 2 spray INTRANASAL DAILY Rx Instructions: administer into each nostril isosorbide dinitrate 10 mg Tablet 10 mg PO TIDCM Qty: 0 0RF fexofenadine 180 MG tablet 180 mg PO QHS PRN (Reason: allergic rhinits) Qty: 3 0RF esomeprazole magnesium [Nexium] 40 mg capsule,delayed release(DR/EC) 40 mg PO TID Referrals / Follow Up: Carin Mckeon DO [Primary Care Provider] - 08/07/23 11:00 am Disposition Disposition (needs filled in before D/C Order can be placed): Home, Self Care Charges/Coding Visit Charges Inpatient E&M: 05643 Disch Hosp >30min
== END 2023-08-05 12:10 | disposition home or self-care (01) | DRG 641 ==
LOC: ED 08-02 05:39 → MS3 08-02 05:58
PROVIDERS: Admitting Provider Internal Medicine; Emergency Provider Emergency Medicine; PCP Internal Medicine; Visit Provider Family Medicine
DX: E87.21 Acute metabolic acidosis (principal); R78.81 Bacteremia; N39.0 Urinary tract infection, site not specified; E11.9 Type 2 diabetes mellitus without complications; E03.9 Hypothyroidism, unspecified; B96.89 Other specified bacterial agents as the cause of diseases classified elsewhere; B96.1 Klebsiella pneumoniae [K. pneumoniae] as the cause of diseases classified elsewhere; J44.9 Chronic obstructive pulmonary disease, unspecified; I10 Essential (primary) hypertension; F32.A Depression, unspecified; E87.6 Hypokalemia; K21.9 Gastro-esophageal reflux disease without esophagitis; M19.90 Unspecified osteoarthritis, unspecified site; E78.5 Hyperlipidemia, unspecified; F41.9 Anxiety disorder, unspecified; E66.9 Obesity, unspecified; T38.3X5A Adverse effect of insulin and oral hypoglycemic [antidiabetic] drugs, initial encounter; R74.01 Elevation of levels of liver transaminase levels; T46.6X5A Adverse effect of antihyperlipidemic and antiarteriosclerotic drugs, initial encounter; Z68.32 Body mass index [BMI] 32.0-32.9, adult; Z79.82 Long term (current) use of aspirin; Z79.84 Long term (current) use of oral hypoglycemic drugs; Z79.899 Other long term (current) drug therapy; Z87.891 Personal history of nicotine dependence
CPT/HCPCS: 36415; 71046; 74177; 80048; 80053; 80061; 80076; 80320; 80329; 81001; 82962; 83605; 83735; 84100; 84443; 85025; 85610; 85730; 86705; 86709; 87040; 87077; 87086; 87088; 87186; 87340; 87631; 97162; 97166; 99285; J7030; J7050; Q9967; A4216; G0480

== ENCOUNTER → 2023-09-18 | Outpatient (CLI) | payer MEDICARE, OTHER, SELFPAY ==
[2018-12-14 15:07] VITALS: BMI 33.4
[2023-09-18 17:29] LABS: Absolute Lymphocyte Count 1.87 X10^3/uL (0.83-4.51); Absolute Neutrophil Count 2.1 X10^3/uL (2.0-7.7); Basophil# 0.02 X10^3/uL; Basophil% 0.4 % (0-1); Eosinophil# 0.28 X10^3/uL; Hematocrit 41.1 % (37-47); Hemoglobin 12.7 g/dL (12.0-15.0); Lymphocyte # 1.87 X10^3/ul (0.83-4.51); Lymphocyte % 40.4 % (19-41); Mean Corp Hgb Conc 30.9 g/dL (32-36); Mean Corpuscular Hgb 28.8 pg (27.0-32.0); Mean Corpuscular Volume 93.2 fL (81-99); Monocyte# 0.34 X10^3/uL; Monocyte% 7.3 % (0-10); NRBC Flagged by Analyzer 0 % (0-5); Neutrophil # 2.11 X10^3/uL (2.7-7.7); Neutrophil % 45.7 % (47-70); Platelet Count 275 K/mm3 (150-450); RBC Distribution Width CV 14.1 % (11.6-14.6); RBC Distribution Width SD 48.7 fl (35.1-43.9); Red Blood Count 4.41 M/mm3 (4.2-5.4); White Blood Count 4.6 K/mm3 (4.4-11.0)
[2023-09-18 17:47] LABS: Vitamin B12 871 pg/mL (211-911); Vitamin D,25 Hydroxy 86.5 ng/mL
[2023-09-18 17:52] LABS: ALB/GLOB Ratio 0.9 RATIO (0.9-2.4); AST(SGOT) 18 U/L (15-37); Alanine Aminotransfer ALT/SGPT 19 U/L (13-56); Alkaline Phosphatase 82 U/L (45-117); Anion Gap 5 (5-15); BUN 9 mg/dL (7-18); BUN/Creat Ratio 11.3 RATIO (10-20); Calcium,Total 9.2 mg/dL (8.5-10.1); Chloride 108 mmol/L (98-107); Cholesterol 145 mg/dL (200); Creatinine, Serum 0.79 mg/dL (0.55-1.02); EST Glomerular Filtration Rate 73 mL/min (>60); Est Glom Filt Rate - Afr Amer 88 mL/min (>60); Globulin 3.2 g/dL (2.2-4.2); Glucose 85 mg/dL (74-106); High Density Lipoprotein 46 mg/dL; Potassium 3.8 mmol/L (3.5-5.1); Protein, Total 6.2 g/dL (6.4-8.2); Sodium Level 142 mmol/L (136-145); Triglycerides 185 mg/dL; Very Low Density Lipoprotein 37 mg/dL (5-40)
== END | disposition home or self-care (01) ==
LOC: MTLAB 14:44
PROVIDERS: PCP Internal Medicine; Referring Provider Internal Medicine; Visit Provider Internal Medicine
DX: E78.5 Hyperlipidemia, unspecified (principal); E11.9 Type 2 diabetes mellitus without complications; E55.9 Vitamin D deficiency, unspecified; E03.9 Hypothyroidism, unspecified; D51.8 Other vitamin B12 deficiency anemias
CPT/HCPCS: 36415; 80053; 80061; 82306; 82607; 84443; 85025

== ENCOUNTER → 2023-09-22 | Outpatient (CLI) | payer MEDICARE, OTHER, SELFPAY ==
[2018-12-14 15:07] VITALS: BMI 33.4
== END | disposition home or self-care (01) ==
LOC: LAB.FUTURE 03:08
PROVIDERS: PCP Internal Medicine; Visit Provider Internal Medicine
DX: E78.5 Hyperlipidemia, unspecified (principal); E11.9 Type 2 diabetes mellitus without complications; E55.9 Vitamin D deficiency, unspecified; E03.9 Hypothyroidism, unspecified

== ENCOUNTER → 2024-02-03 | Outpatient (CLI) | payer MEDICARE, OTHER, SELFPAY ==
[2018-12-14 15:07] VITALS: BMI 33.4
--- NOTE | 2024-02-03 14:26 | RAD_ITS ---
EXAM: XR LEFT KNEE, 3 VIEWS CLINICAL INDICATION: PAIN TECHNIQUE: Three views of the left knee. COMPARISON: No relevant prior studies available. FINDINGS: BONES/JOINTS: Unremarkable. No sclerotic or destructive changes observed. No acute or healing fracture hemidiaphragm. No hardware convocations or failure. No significant joint effusion. SOFT TISSUES: Unremarkable. No soft tissue swelling or gas. No radiopaque foreign body. RAD/Knee 3 Views IMPRESSION: No hardware complications or failure. No acute osseous abnormalities or malalignment. Electronically Signed: Sahil Xie MD at 4:00 EDT ,
--- NOTE | 2024-02-03 14:27 | RAD_ITS ---
STUDY: X-RAY - RIGHT KNEE REASON FOR EXAM: Female, 88 years old. PAIN TECHNIQUE: 3 view(s) of the knee. COMPARISON: None. FINDINGS: There is demineralization of the visualized distal femur. There is demineralization of the tibia and fibula. Normal proximal tibiofibular articulation. There is no demonstrated fracture. There is moderate degenerative arthrosis of the medial femorotibial compartment with moderate joint space narrowing. There is mild degenerative arthrosis of the lateral femorotibial compartment. Normal patellofemoral articulation. The soft tissue structures are unremarkable. RAD/Knee 3 Views IMPRESSION: Degenerative arthrosis. Electronically Signed: Keon Ramirez MD at 23:59 EDT ,
== END | disposition home or self-care (01) ==
PROVIDERS: PCP Internal Medicine; Referring Provider Psychiatry & Neurology Neurology; Visit Provider Psychiatry & Neurology Neurology
DX: M25.561 Pain in right knee (principal); M25.562 Pain in left knee
CPT/HCPCS: 73562

== ENCOUNTER → 2024-02-17 | Outpatient (CLI) | payer MEDICARE, OTHER, SELFPAY ==
[2018-12-14 15:07] VITALS: BMI 33.4
--- NOTE | 2024-02-17 09:37 | BD_ITS ---
STUDY: DUAL ENERGY X-RAY ABSORPTIOMETRY / DXA REASON FOR EXAM: Female, 88 years old. [id number] -- Post-menopausal status TECHNIQUE: Bone Mineral Density (BMD) measurements of lumbar spine and bilateral hips were obtained. COMPARISON: Comparison is made with prior study dated April 07, 2017. FINDINGS: Lumbar Spine (L1-L4): g/cm2 (0.848) / T-score (-1.2) / Z-score (1.5) Findings are suggestive of osteopenia with a low fracture risk. Left Femur Total: g/cm2 (0.667) / T-score (-2.3) / Z-score (0.1) Left Femoral Neck: g/cm2 (0.499) / T-score (-3.2) / Z-score (-0.7) Right Femur Total: g/cm2 (0.736) / T-score (-1.7) / Z-score (0.6) Right Femoral Neck: g/cm2 (0.578) / T-score (-2.4) / Z-score (0.1) The T-Scores on the most recent prior examination were: Lumbar Spine (L1-L4): There has been improvement of bone density since the previous examination. Left Femur Total: which represents a worsening of 15.8%. Right Femur Total: which represents a worsening of 13%. BD/Dexa Bone Density Study IMPRESSION: The patient is considered osteoporotic as outlined below according to World Michael Organization (WHO) criteria with a high fracture risk. There has been worsening of bone density since the previous examination. Reference Information: The T-score is the number of standard deviations above or below the standard which is normal for young adults at their peak bone mineral density. The World Health Organization (WHO) interprets the T-scores as follows: Above -1 Normal bone density Between -1 and -2.5 Osteopenia Equal to / or below -2.5 Osteoporosis As a practical clinical guideline, osteopenia may be graded as follows: Mild -1 through -1.5 Moderate -1.6 through -2.0 Severe -2.1 through -2.4 The Z-score is the number of standard deviations above or below age-matched controls. A Z-score of less than -1.5 would be considered abnormal. References: 1. NIH Osteoporosis and Related Bone Diseases www osteo.org 2. International Society for Clinical Densitometry www iscd.org 3. National Osteoporosis Foundation www nof.org Electronically Signed: Shai Gonzalez MD at 13:14 EDT ,
== END | disposition home or self-care (01) ==
LOC: OPBD 09:32
PROVIDERS: PCP Internal Medicine; Referring Provider Internal Medicine; Visit Provider Internal Medicine
DX: Z78.0 Asymptomatic menopausal state (principal)
CPT/HCPCS: 77080

== ENCOUNTER → 2024-02-25 | Outpatient (CLI) | payer MEDICARE, OTHER, SELFPAY ==
[2018-12-14 15:07] VITALS: BMI 33.4
--- NOTE | 2024-02-25 13:21 | CT_ITS ---
INDICATION: CT SCAN OF CHEST WITH CONTRAST, lung nodule, and lt;1cm, low risk -- Abnormal chest x-ray EXAMINATION: CT CHEST WITH CONTRAST - CT Chest W/ Contrast Injection TECHNIQUE: Helically acquired images were obtained of the chest following IV contrast. The protocol utilizes one or more of the following dose reduction techniques: automated exposure control, adjustment of mA and/or kV according to patient size,and/or use of iterative reconstruction technique. IV Contrast dosage and agent: 100 cc of Isovue-300 RADIATION DOSAGE (If Supplied By Facility): CTDIvol = ( 18.84 ) mGy, DLP = ( 528.65 ) mGycm COMPARISON: CT of the abdomen and pelvis dated August 02, 2023 FINDINGS: LUNGS, PLEURA AND LARGE AIRWAYS: There is minimal lower lobe dependent atelectasis. There is minimal bibasilar atelectasis and/or scarring as well, more pronounced on the left. There is a granuloma within the right middle lobe. No pleural effusion or thickening. No pneumothorax. THYROID: No thyroid lesions. HEART AND PERICARDIUM: Heart size is normal. No pericardial effusion. There are coronary artery calcifications. VESSELS: Thoracic aorta is not dilated. There are peripheral calcifications of the thoracic aorta No aortic dissection. No obvious central pulmonary embolism although this study was not performed with the pulmonary embolism protocol. MEDIASTINUM AND POLLY: No mediastinal or hilar adenopathy. Esophagus is unremarkable. No hiatal hernia. There are postsurgical changes of the anterior chest wall. UPPER ABDOMEN: No acute pathology. BONES: There are degenerative changes of the thoracic spine. There is a stimulator device in place with an electrode terminating within the upper/mid thoracic spinal canal. CT/Chest WITH Contrast IMPRESSION: No acute intra-abdominal process. Minimal bilateral atelectasis. Atherosclerosis. Electronically Signed: Kym Kay MD at 14:32 EDT ,
[2024-02-25 14:06] LABS: CREATININE FINGERSTICK < 1.0 mg/dL (0.55-1.02); EGFR FINGERSTICK > 60.0000 mL/min (>60)
== END | disposition home or self-care (01) ==
LOC: CT 13:19
PROVIDERS: PCP Internal Medicine; Referring Provider Internal Medicine; Visit Provider Internal Medicine
DX: Z01.812 Encounter for preprocedural laboratory examination (principal); R93.89 Abnormal findings on diagnostic imaging of other specified body structures
CPT/HCPCS: 71260; Q9967; A4216

== ENCOUNTER 2024-07-31 23:33 | Inpatient (IN) | payer MEDICARE, OTHER, SELFPAY ==
[2018-12-14 15:07] VITALS: BMI 33.4
--- NOTE | 2024-07-31 00:20 | RAD_ITS ---
PROCEDURE: CHEST 1 VIEW (PORTABLE) REASON FOR EXAM: Weakness TECHNIQUE: Frontal view of the chest. COMPARISON: None. FINDINGS: The heart size is normal. The mediastinal contour is unremarkable. The lungs are clear. Degenerative changes are noted in the right shoulder. Spinal stimulator leads overlying the midthoracic spine RAD/Chest 1 View (Portable) IMPRESSION: No radiographic evidence of acute cardiopulmonary disease. Reading Location: [id number]
[2024-07-31 23:34] VITALS: BP 114/43; PULSE 72; RESP 18; TEMP 37.3; O2SAT 92; BMI 31.4
--- NOTE | 2024-07-31 23:36 | EX.ED.DYSGE1 ---
HPI History of Present Illness Chief Complaint: Weakness Detail of Chief Complaint: Weakness Informant: patient Narrative Narrative: Patient presents the emergency department complaint generalized weakness that started around noon today. She was having hard time using her walker at home and hard time standing and walking. Patient states that yesterday she had a headache for which she took some ibuprofen. Had headache again today and took ibuprofen. She complains of some chills and some bodyaches. She has had no documented fever. She gets urinary tract infections but denies dysuria or urgency or frequency. Patient lives at home with her . She tells me that she had some sort of a brain tumor 2 to 3 years ago and had radiation for it. [facility] Medical History (Updated 08/01/24 @ 01:[address] Delta Campbell, ) Hx: UTI (urinary tract infection) Hypokalemia Difficulty swallowing Irritable bowel Cancer Diabetes Kidney disease Asthma Breast cancer, right (~11/2018) abnormal ultrasound right breast Acute bronchitis due to Haemophilus influenzae Anxiety and depression Elevated liver enzymes GERD (gastroesophageal reflux disease) Chronic obstructive pulmonary disease (COPD) Hypothyroidism Obesity (BMI 30-39.9) HLD (hyperlipidemia) HTN (hypertension) Diabetes mellitus, type II Home Medications ?Medication ?Instructions ?Recorded ?Last Taken ?Type atenolol 100 mg tablet 100 mg PO DAILY bp 07/10/15 10/02/21 History montelukast 10 mg tablet 10 mg PO QHS ALLERGY 07/10/15 10/02/21 History gabapentin 300 mg capsule 300 mg PO BID NERVE PAIN 02/16/17 10/02/21 History amlodipine 2.5 mg tablet 2.5 mg PO DAILY BP 07/29/19 10/02/21 History cholecalciferol (vitamin D3) 50 8,000 unit PO DAILY SUPPLEMENT 07/29/19 10/02/21 History mcg (2,000 unit) chewable tablet clonidine HCl 0.1 mg tablet 0.1 mg PO DAILY BP 07/29/19 10/02/21 History dicyclomine 10 mg capsule 10 mg PO Q6H PRN PRN abdominal 01/17/22 Unknown Rx discomfort #20 CAPSULES mometasone 50 mcg/actuation nasal 2 spray intranasal DAILY nasal 02/02/22 Unknown History spray spray fexofenadine 180 mg tablet 180 mg PO QHS PRN allergic rhinits 02/04/22 10/02/21 Rx #3 tabs isosorbide dinitrate 10 mg tablet 10 mg PO TIDCM #0 tabs 02/04/22 Unknown Rx atorvastatin 20 mg tablet 20 mg PO DAILY 09/23/22 Unknown History cyanocobalamin (vitamin B-12) 1,000 mcg IM QMONTH 09/23/22 Unknown History 1,000 mcg/mL injection kit esomeprazole magnesium 40 mg 40 mg PO TID 08/02/23 Unknown History capsule,delayed release (Nexium) Allergy/AdvReac Type Severity Reaction Status Date / Time hydrocodone bitartrate (From AdvReac Severe Other Verified 07/31/24 23:33 Vicodin) oxycodone HCl (From Percocet) AdvReac Severe Other Verified 07/31/24 23:33 tramadol AdvReac Severe Other Verified 07/31/24 23:33 atorvastatin AdvReac Unknown Other Verified 07/31/24 23:33 Family History Brother Breast cancer Kidney disease Heart disease Father Heart disease Surgical History History of cholecystectomy History of right mastectomy (~11/2018) history partial right oophorectomy Status post left partial knee replacement history laminectomy with decompression History of left mastectomy History of laparoscopic cholecystectomy Social History Smoking Status: Former smoker second hand exposure: No alcohol intake: never substance use type: does not use connie/pentecostal: Yazidism seatbelt use: always ROS ROS ED Review of Systems ROS Unobtainable: other Constitutional Constitutional ED: Reports chills and lethargy; Denies fever(s), sweats or weight loss Eyes Eyes: Denies blurry vision, change in vision or diplopia ENT ENT ED: Denies rhinorrhea or sore throat Cardiovascular Cardiovascular: Denies chest pain, orthopnea or racing heartbeat Respiratory/Chest Respiratory/Chest: Denies cough, dyspnea, dyspnea on exertion, orthopnea or sputum Gastrointestinal Gastrointestinal: Denies abdominal pain, diarrhea, nausea or vomiting Genitourinary Genitourinary ED: Denies dysuria, hematuria or urinary frequency Musculoskeletal Musculoskeletal: Reports myalgias; Denies arthralgias, back pain or neck pain Integumentary Denies abscess, Abrasions or rash Neurologic Neurologic: Reports headache(s); Denies weakness Psychiatric Psychiatric: Denies anxiety, depression or suicidal thoughts Endocrine Endocrinology: Denies polydipsia, polyphagia or polyuria Hematologic/Lymphatic Hematologic/Lymphatic: Denies easy bleeding, easy bruising or lymphadenopathy Allergic/Immunologic Allergic/Immunologic ED: Denies mouth swelling, tongue swelling or urticaria EXAM Physical Exam Const Vital Signs: 07/31/24 23:34 Temperature 99.1 F Temperature Source Temporal Pulse Rate 72 Respiratory Rate 18 Blood Pressure 114/43 L Blood Pressure Mean 66 Pulse Ox 92 Oxygen Delivery Method Room Air Positive well nourished and well developed General Appearance ED: well developed and NAD HEENT Reports TM's clear and moist mucous membranes normocephalic and atraumatic; Negative for trauma or tenderness Tympanic Membrane ED: Yes TM's clear Eyes PERRL and EOMs intact bilaterally General Eye ED: Negative for pale conjunctiva or scleral icterus Neck no lymphadenopathy, supple and no JVD General: Negative for tenderness Chest Wall inspection of chest normal and palpation of chest normal Chest: Negative for tenderness Resp normal respiratory effort and clear to auscultation bilaterally Effort and Inspection: Negative for respiratory distress or pain with movement Auscultation: Negative for rhonchi, wheezes or diminished lung sounds Cardio regular rate, regular rhythm, S1 normal heart sound, S2 normal heart sound and no murmurs Peripheral Pulses: pulses 2+ throughout GI normal to inspection, nondistended, normoactive bowel sounds, soft to palpation, non-tender, non-distended and no masses Back/Spine no CVA tenderness and no thoracic nor lumbar tenderness Extremity normal to inspection General Extremety ED: Negative for edema General Extremity: Negative for edema Neuro oriented x3, CN's II-XII intact bilaterally, no sensory deficits noted and gait normal Neuro Narrative: No focal deficits on exam. NIH stroke scale 0. Sensorium / Orientation: awake, alert, oriented to person, oriented to place and oriented to time Motor Exam: strength 5/5 throughout and strength abnormal Psych mental status grossly normal Skin no rashes or lesions noted and no wounds MDM MDM MDM Narrative Medical decision making narrative: Patient presents with generalized weakness and difficulty walking tonight. Lives with her . She gets frequent urinary tract infections. She denies fevers. She denies cough. No stroke symptoms on exam. Suspect possibly metabolic or infectious cause. IV line established. CBC with differential obtained showing a 13.0 with hemoglobin 13.9 and platelet count of 247. Chemistries unremarkable. Lactate was normal at 1.7. Urinalysis positive for UTI. Urine culture sent. Patient started on Rocephin [address] scan of the brain without contrast initially obtained because of difficulty walking and complaint of headache for 2 days. This was unremarkable. No intracranial hemorrhage. Case will be discussed with hospitalist to evaluate patient for admission. Patient also had an EKG that showed a sinus rhythm with rate of 66 bpm with left bundle branch block. Troponin was normal at 8. Chest x-ray unremarkable. COVID flu and RSV testing was negative. Lab Data Attestation: I reviewed the patient's lab results. Labs: Laboratory Results - last 24 hr 07/31/24 07/31/24 00:05 23:44 WBC 13.0 H RBC 4.63 Hgb 13.9 Hct 42.6 MCV 92.0 MCH 30.0 MCHC 32.6 RDW Std Deviation 45.5 H RDW Coeff of Sravan 13.6 Plt Count 247 MPV 10.1 Immature Gran % (Auto) 0.400 Neut % (Auto) 84.9 H Lymph % (Auto) 8.0 L [place] % (Auto) 5.6 Eos % (Auto) 0.9 Baso % (Auto) 0.2 Absolute Neuts (auto) 11.1 H Absolute Lymphs (auto) 1.04 Nucleated RBC % 0 Sodium 138 Potassium 4.2 Chloride 102 Carbon Dioxide 28.0 Anion Gap 7 BUN 14 Creatinine 0.85 Estim Creat Clear Calc 48.63 Est GFR (MDRD) Af Amer 82 Est GFR (MDRD) Non-Af 68 BUN/Creatinine Ratio 16.5 Glucose 147 H Lactic Acid 1.7 Calcium 9.4 Troponin I High Sens 9 Urine Color Yellow Urine Clarity Sl. Cloudy Urine pH 5.0 Ur Specific [place] 1.020 Urine Protein 30 H Urine Glucose (UA) Normal Urine Ketones Negative Urine Occult Blood Negative Urine Nitrite Positive H Urine Bilirubin Negative Urine Urobilinogen Normal Ur Leukocyte Esterase 25 H Urine RBC 25-50 SEEN Urine WBC 0 SEEN Ur Squamous Epith Cells 0-5 SEEN Urine Bacteria 4+ Urine Mucus 2+ Radiography Diagnostic Testing: Clinical Impression(s) from Imaging Studies Chest X-Ray 07/31/24 00:20 IMPRESSION: No radiographic evidence of acute cardiopulmonary disease. Reading Location: [facility] 08/01/24 00:00 IMPRESSION: 1. No CT evidence of acute intracranial pathology. 2. Age-appropriate volume loss and remote small vessel ischemic changes Reading Location: [facility] 1 view chest x-ray obtained interpreted by myself as no evidence of infiltrate or pneumothorax or acute disease process. Radiology in agreement. EKG Initial EKG: Comments: Sinus rhythm with rate of 66 bpm with left bundle branch block Discharge Plan Triage Chief Complaint: Weakness ED Provider: Delta Campbell Dx/Rx/DC Orders Clinical Impression: Weakness, Acute UTI Prescriptions: No Action cyanocobalamin (vitamin B-12) 1,000 mcg/mL kit 1,000 mcg IM QMONTH Rx Instructions: 2-27-23 1ml [id number] q 1 week for 2 weeks, then every 2 weeks for 8 weeks then once a month atorvastatin 20 mg tablet 20 mg PO DAILY atenolol 100 MG tablet 100 mg PO DAILY montelukast 10 MG tablet 10 mg PO QHS gabapentin 300 MG capsule 300 mg PO BID clonidine HCl 0.1 MG tablet 0.1 mg PO DAILY amlodipine 2.5 MG tablet 2.5 mg PO DAILY cholecalciferol (vitamin D3) 2,000 UNIT tablet,chewable 8,000 unit PO DAILY dicyclomine 10 mg capsule 10 mg PO Q6H PRN PRN (Reason: abdominal discomfort) Qty: 20 0RF mometasone 50 mcg/actuation Athena,Non-Aerosol 2 spray INTRANASAL DAILY Rx Instructions: administer into each nostril isosorbide dinitrate 10 mg Tablet 10 mg PO TIDCM Qty: 0 0RF fexofenadine 180 MG tablet 180 mg PO QHS PRN (Reason: allergic rhinits) Qty: 3 0RF esomeprazole magnesium [Nexium] 40 mg capsule,delayed release(DR/EC) 40 mg PO TID Primary Care Provider: Carin Mckeon Referrals: Carin Mckeon DO [Primary Care Provider] - Print Language: Prydeinig Disposition Disposition: Acute Care [facility]
[2024-08-01] VITALS (8 sets, daily range): BP systolic 114–152; BP diastolic 42–52; PULSE 56–65; RESP 16–18; TEMP 36.7–37.2; O2SAT 93–95; BMI 30.7; BMI 32.1
--- NOTE | 2024-08-01 | CT_ITS ---
EXAM: BRAIN/HEAD WITHOUT CONTRAST CLINICAL HISTORY: Headache, weakness COMPARISON: MRI head dated 10/20/2022. TECHNIQUE: Noncontrast images of the head with multiplanar reconstructions. Dose reduction techniques were used including intermediate exposure control (AEC),iterative reconstruction technique, and/or mA and/or KV dose adjustments based on patient's size. FINDINGS: CT HEAD FINDINGS: No acute intracranial hemorrhage, mass, mass effect, midline shift or pathologic extra-axial fluid collection. Nonspecific periventricular white matter changes are noted Ventricles, sulci and cisterns are prominent. Visualized paranasal sinuses and mastoid air cells are clear. The calvarium is grossly intact. CT/Brain/Head without Contrast IMPRESSION: 1. No CT evidence of acute intracranial pathology. 2. Age-appropriate volume loss and remote small vessel ischemic changes [facility]
[2024-08-01 00:10] LABS: White Blood Cells 0 SEEN /hpf (0-5)
[2024-08-01 00:13] LABS: Absolute Lymphocyte Count 1.04 X10^3/uL (0.83-4.51); Absolute Neutrophil Count 11.1 X10^3/uL (2.0-7.7); Basophil# 0.03 X10^3/uL; Basophil% 0.2 % (0-1); Eosinophil# 0.12 X10^3/uL; Eosinophils% 0.9 % (0-5); Hematocrit 42.6 % (37-47); Hemoglobin 13.9 g/dL (12.0-15.0); Lymphocyte # 1.04 X10^3/ul (0.83-4.51); Mean Corp Hgb Conc 32.6 g/dL (32-36); Mean Platelet Vol. 10.1 fl (6.2-12.0); Monocyte# 0.73 X10^3/uL; Monocyte% 5.6 % (0-10); NRBC Flagged by Analyzer 0 % (0-5); Neutrophil # 11.05 X10^3/uL (2.7-7.7); Neutrophil % 84.9 % (47-70); Platelet Count 247 K/mm3 (150-450); RBC Distribution Width CV 13.6 % (11.6-14.6); RBC Distribution Width SD 45.5 fl (35.1-43.9); Red Blood Count 4.63 M/mm3 (4.2-5.4)
[2024-08-01 00:14] LABS: Anion Gap 7 (5-15); BUN 14 mg/dL (7-18); BUN/Creat Ratio 16.5 RATIO (10-20); Calcium,Total 9.4 mg/dL (8.5-10.1); Chloride 102 mmol/L (98-107); Creatinine, Serum 0.85 mg/dL (0.55-1.02); EST Glomerular Filtration Rate 68 mL/min (>60); Est Glom Filt Rate - Afr Amer 82 mL/min (>60); Estimated Creatinine Clearance 48.63 ml/min; Glucose 147 mg/dL (74-106); Potassium 4.2 mmol/L (3.5-5.1); Sodium Level 138 mmol/L (136-145); Troponin-I HS 9 pg/mL (3.0-54.0)
[2024-08-01 00:18] LABS: Lactic Acid 1.7 mmol/L (0.4-1.9)
[2024-08-01 00:23] LABS: Color, Urine Yellow (Yellow); Glucose, Dipstick Normal (Normal); Ketone-Dipstick Negative (Negative); Leukocyte Esterase-Dipstick 25 /ul (Negative); Nitrite-Dipstick Positive (Negative); Occult Blood-Urine Negative /ul (Negative); Protein-Dipstick 30 mg/dl (Negative); Urine Bilirubin Dipstick Negative (Negative); Urine Clarity Sl. Cloudy (Clear); Urine Urobilinogen Normal (Normal)
[2024-08-01 00:36] LABS: Bacteria 4+ /hpf (None Seen); Mucous, Urine 2+ /hpf (<or=2+); Red Blood Cells-Urine 25-50 SEEN /hpf (0-5); Squamous Epithelial Cells - UA 0-5 SEEN /hpf (5-10)
[2024-08-01] MEDS: Ceftriaxone 1 GM/50 ML BAG IV ×2 (01:20→21:53)
--- NOTE | 2024-08-01 01:49 | HP.PCM.HOS_ITS ---
[facility] - [facility] General Date of Admission: 08/01/24 Date of Service: 08/01/24 Chief Complaint: Headache, Generalized Weakness and Unable to Walk. [facility] Narrative KARRIE DAVID, is a 88 F with a past medical history of essential hypertension; on amlodipine, atenolol and clonidine, hyperlipidemia; on atorvastatin, hypothyroidism, obesity; with BMI of 31.4 this admission, diabetes mellitus type 2; of unknown control and not on treatment, remote history of tobacco abuse; with subsequent asthma/COPD, history of acute bronchitis; attributed to Haemophilus influenza, history of pulmonary hypertension, history of cerebral convexity meningioma; s/p gamma knife treatment (~2015), history of breast cancer; s/p bilateral mastectomies (2018) now in remission, history of difficulty swallowing, history of frequent occipital headaches, history of COVID-19 (2021), history of allergic rhinitis; on intranasal mometasone twice daily and fexofenadine nightly as needed, history of LBBB, history of elevated liver function tests, history of cholecystectomy, history of depression with anxiety; currently not on treatment, irritable bowel syndrome; of diarrheal- type; on as needed dicyclomine every 6 hours, GERD; on esomeprazole, gout, osteoarthritis; with history of L4-L5 & L5-S1 laminectomy and decompression plus history of Left partial knee replacement causing patient to mobilize with a walker at baseline since ~[address] Rodriguez of pain management with intermittent lumbar epidural steroid injections and lumbar ablation procedures, history of admission here from August 02, 2023 to August 05, 2023 for Metformin-induced Lactic Acidosis complicated by Hyperbilirubinemia (with total bilirubin of 2.2 mg/dL and direct bilirubin of 1.43 mg/dL present on admission) with elevated AST 723 U/L, ALT 453 and Alkaline Phosphatase 257 U/L due to suspected Adverse Drug Reaction to Atorvastatin with Hypokalemia of 3.2 mmol/L present on admission and a UA positive for evidence of colonization but not acute infection and a CT scan of the abdomen and pelvis that was unremarkable for acute pathologic changes and frequent UTI's; accompanied by headaches with generalized weakness who present to [facility] ER complaining of headache, generalized weakness so severe she is unable to walk. Mrs. David reports her symptoms began approximately noon yesterday with the gradual-onset of generalized weakness that made it difficult for her to use her walker and even stand up. She then developed a tension-type headache with associated chills and body aches for which she took ibuprofen with minimal relief so she then took a second ibuprofen which did not help her symptoms so both she and her decided to come in for further evaluation and treatment. She also admits to lethargy myalgias but there was no report of fever, nausea, vomiting, constipation, chest pain, heart racing, palpitations, lower extremity edema, visual changes, lateralizing neurologic deficits or slurred speech. In the ER she was noted to have a UA preliminarily positive for Acute Cystitis with Leukocytosis of 13K present on admission complicated by Occipital Headache and Generalized Weakness with Ambulatory Dysfunction and she was then admitted to the general medical floor for ongoing care for a stay that is expected to extend beyond 2 midnights. [facility] Medical History Hx: UTI (urinary tract infection) Hypokalemia Difficulty swallowing Irritable bowel Cancer Diabetes Kidney disease Asthma Breast cancer, right (~11/2018) abnormal ultrasound right breast Acute bronchitis due to Haemophilus influenzae Anxiety and depression Elevated liver enzymes GERD (gastroesophageal reflux disease) Chronic obstructive pulmonary disease (COPD) Hypothyroidism Obesity (BMI 30-39.9) HLD (hyperlipidemia) HTN (hypertension) Diabetes mellitus, type II Home Medications ?Medication ?Instructions ?Recorded ?Last Taken ?Type atenolol 100 mg tablet 100 mg PO DAILY bp 07/10/15 10/02/21 History montelukast 10 mg tablet 10 mg PO QHS ALLERGY 6 10/02/21 History gabapentin 300 mg capsule 300 mg PO BID NERVE PAIN 09/2910/02/21 History amlodipine 2.5 mg tablet 2.5 mg PO DAILY BP 07/29/19 10/02/21 History cholecalciferol (vitamin D3) 50 8,000 unit PO DAILY VALDIVIA PPLEMENT 07/29/19 10/02/21 History mcg (2,000 unit) chewable tablet clonidine HCl 0.1 mg tablet 0.1 mg PO DAILY BP 0 10/02/21 History dicyclomine 10 mg capsule 10 mg PO Q6H PRN PRN abdomin al 01/17/22 Unknown Rx discomfort #20 CAPSULES mometasone 50 mcg/actuation nasal 2 spray intranasal D AILY nasal 02/02/22 Unknown History spray spray fexofenadine 180 mg tablet 180 mg PO QHS PRN allergic rhinits 02/04/22 10/02/21 Rx #3 tabs isosorbide dinitrate 10 mg tablet 10 mg PO TIDCM heart #0 tabs 02/04/22 Unknown Rx atorvastatin 20 mg tablet 20 mg PO DAILY hld 09/23/22 Unknown History cyanocobalamin (vitamin B-12) 1,000 mcg IM QMONTH 09/13 07/07 Unknown History 1,000 mcg/mL injection kit esomeprazole magnesium 40 mg 40 mg PO BID gerd 4 Unknown History capsule,delayed release (Nexium) Allergy/AdvReac Type Severity Reaction Status Date / Time hydrocodone bitartrate (From AdvReac Severe Other Verified 07/31/24 23:33 Vicodin) oxycodone HCl (From Percocet) AdvReac Severe Other Verified 07/31/24 23:33 tramadol AdvReac Severe Other Verified 07/31/24 23:33 atorvastatin AdvReac Unknown Other Verified 07/31/24 23:33 Family History Brother Breast cancer Kidney disease Heart disease Father Heart disease Surgical History History of cholecystectomy History of right mastectomy (~11/2018) history partial right oophorectomy Status post left partial knee replacement history laminectomy with decompression History of left mastectomy History of laparoscopic cholecystectomy Social History Smoking Status: Former smoker second hand exposure: No alcohol intake: never substance use type: does not use connie/gnosticist: Holiness seatbelt use: always ROS ROS Narrative Review of Systems: Constitutional: Patient admits to generalized weakness, malaise chills and lethargy but she denies fever or sweats. Eyes: Patient denies changes in vision or discharge from eyes. ENT: Patient denies runny nose, sore throat or ear pain. Resp: Patient denies shortness of breath or cough. CV: Patient denies chest pain, palpitations, heart racing or lower extremity edema. GI: Patient denies abdominal pain, nausea, vomiting or constipation. : Patient denies dysuria, hematuria or urinary frequency. MSK: Patient admits to myalgias and generalized weakness particularly her lower extremities with a chronic tendency for her legs to feel like they are heavy and are going to give out. Skin: Patient denies rash, abscess, wounds or jaundice. Psych: Patient denies symptoms of uncontrolled depression or anxiety. Neuro: Patient admits to occipital headache which is typical of her previous headaches but she denies paresthesias, lateralizing focal neurologic deficits or slurred speech. Allergy: Patient denies lip swelling, tongue swelling or urticaria. Hematology: Patient denies easy bleeding or easy bruisability. Endocrinology: Patient denies polyuria, polydipsia or polyphagia. 14 point review of symptoms otherwise negative except for positives noted above in HPI. Vital Signs Vital Signs Vital Signs: 07/31/24 23:34 08/01/24 01:22 Temperature 99.1 F 98.7 F Temperature Source Temporal Pulse Rate 72 63 Respiratory Rate 18 16 Blood Pressure 114/43 L 114/42 L Blood Pressure Mean 66 66 Pulse Ox 92 95 Oxygen Delivery Method Room Air Weight Weight: 183 lb 3.266 oz Body Mass Index (BMI) 31.4 Physical Exam Const alert, oriented x3 and no apparent distress Constitutional Narrative: Obese and chronically ill in appearance. General Appearance: cooperative HEENT normocephalic, head/scalp atraumatic, hearing grossly normal bilaterally and moist oral mucous membranes Eyes PERRL, EOMs intact bilaterally and conjunctivae normal Neck no lymphadenopathy, supple and no JVD Resp normal respiratory effort, no retractions, no use of accessory muscles and clear to auscultation bilaterally Cardio regular rate and regular rhythm GI normal to inspection, nondistended, normoactive bowel sounds, soft to palpation, non-tender and non-distended GI Narrative: Obese. Extremity normal to inspection, full ROM and no clubbing, cyanosis or edema Extremity Narrative: Patient is generally weak in both lower extremities cannot stand or walk without assistance with time. Skin Skin Narrative: Patient's evidence of rash, abscess, wounds or jaundice. Neuro oriented x3, CN's II-XII intact bilaterally, moves all extremities and no focal motor deficits Sensorium / Orientation: awake, alert, oriented to person, oriented to place and oriented to time Speech: speech normal Psych affect normal Results Medical Records Data Attestation: I reviewed the patient's medical records Lab / Micro Data Attestation: I reviewed the patient's lab results. 07/31/24 23:44 07/31/24 23:44 Labs: Laboratory Results - last 24 hr 07/31/24 00:05: Urine Color Yellow, Urine Clarity Sl. Cloudy, Urine pH 5.0, Ur Specific [place] 1.020, Urine Protein 30 H, Urine Glucose (UA) Normal, Urine Ketones Negative, Urine Occult Blood Negative, Urine Nitrite Positive H, Urine Bilirubin Negative, Urine Urobilinogen Normal, Ur Leukocyte Esterase 25 H, Urine RBC 25-50 SEEN, Urine WBC 0 SEEN, Ur Squamous Epith Cells 0-5 SEEN, Urine Bacteria 4+, Urine Mucus 2+ 07/31/24 23:44: WBC 13.0 H, RBC 4.63, Hgb 13.9, Hct 42.6, MCV 92.0, MCH 30.0, MCHC 32.6, RDW Std Deviation 45.5 H, RDW Coeff of [place]rav[place] 13.6, Plt Count 247, MPV 10.1, Immature Gran % (Auto) 0.400, Neut % (Auto) 84.9 H, Lymph % (Auto) 8.0 L, [place] % (Auto) 5.6, Eos % (Auto) 0.9, Baso % (Auto) 0.2, Absolute Neuts (auto) 11.1 H, Absolute Lymphs (auto) 1.04, Nucleated RBC % 0, Sodium 138, Potassium 4.2, Chloride 102, Carbon Dioxide 28.0, Anion Gap 7, BUN 14, Creatinine 0.85, Estim Creat Clear Calc 48.63, Est GFR (MDRD) Af Amer 82, Est GFR (MDRD) Non-Af 68, BUN/Creatinine Ratio 16.5, Glucose 147 H, Lactic Acid 1.7, Calcium 9.4, Troponin I High Sens 9 Micro: Microbiology 07/31/24 23:50 Mucosa - Nose SARS-CoV-2, Influenza & RSV (PCR) - Final Imaging Radiology Impression Chest X-Ray 07/31/24 00:20 IMPRESSION: No radiographic evidence of acute cardiopulmonary disease. [facility] 02/17/25 00:00 IMPRESSION: 1. No CT evidence of acute intracranial pathology. 2. Age-appropriate volume loss and remote small vessel ischemic changes Reading Location: [facility] Assessment & Plan Assessment/Plan (1) Acute UTI: (2) Leukocytosis: QUALIFIERS: Leukocytosis type: unspecified Qualified Code(s): D 72.829 - Elevated white blood cell count, unspecified (3) Recurrent occipital headache: (4) Generalized weakness: (5) Ambulatory dysfunction: (6) Adverse drug reaction: QUALIFIERS: Encounter type: initial encounter Qualified Code(s): T50.905A - Adverse effect of unspecified drugs, medicaments and biological substances, initial encounter (7) Hypomagnesemia: (8) Obesity (BMI 30.0-34.9): PLAN: Plan 1. UA preliminarily positive for Acute Cystitis with Leukocytosis of 13K in the setting of known frequent UTI's - Admit to general medical floor with telemetric monitoring. Continue empiric IV ceftriaxone begun in ER and await culture and sensitivity data. Give acetaminophen as needed for [id number] (level 1- 5/10) pain or fever. Give morphine IV as needed for severe (level 6-10/10) pain. 2. Occipital Headache (recurrent) with chills and lethargy attributable to #[address] head negative for acute pathologic changes this admission - Resume supportive care outlined above and monitor for improvement. 3. Generalized Weakness with Ambulatory Dysfunction due to #1 & #2 plus suspected Adverse Drug Reaction to statin; with myotoxicity in the setting of known OA; with history of L4-L5 & L5-S1 laminectomy and decompression plus history of Left partial knee replacement causing patient to mobilize with a walker at baseline since ~[address] Rodriguez of pain management with intermittent lumbar epidural steroid injections and lumbar ablation procedures complicating #1 & #2 - PT/OT and Case Management to consult and treat on rounds in the a.m. further recommendations of appreciated in advance. Finally, it is worth noting that this patient was suspected to have a toxicity from statin during her last admission with agent restarted in spite of this concern. 4. Hypomagnesemia of 1.3 mg/dL present on admission adding to the medical complexity of #1 - #3 - Give supplemental IV magnesium sulfate and then recheck level in AM to confirm repletion. 5. Obesity; with BMI of 31.4 this admission adding to the burden of disease outlined from #1 - #4 - Weight loss will be recommended. Check TSH. This complicates her case and may hamper recovery. 6. History of admission here from August 02, 2023 to August 05, 2023 for Metformin-induced Lactic Acidosis complicated by Hyperbilirubinemia (with total bilirubin of 2.2 mg/dL and direct bilirubin of 1.43 mg/dL present on admission) with elevated AST 723 U/L, ALT 453 and Alkaline Phosphatase 257 U/L due to suspected Adverse Drug Reaction to Atorvastatin with Hypokalemia of 3.2 mmol/L present on admission and a UA positive for evidence of colonization but not acute infection eventually having bacteremia secondary to Klebsiella sensitive to Cipro - Noted. 7. History of cerebral convexity meningioma; s/p gamma knife treatment (~2015) - Noted with head CT negative this admission for acute pathologic findings. 8. Essential Hypertension; on amlodipine, atenolol and clonidine - Resume home regimen. 9. Hyperlipidemia; on atorvastatin - Statin will be once again be stopped due to suspected myotoxicity. Check Lipid Profile and consider alternative agent if indicated. 10. History of hypothyroidism; currently not on treatment - Check TSH. 11. Diabetes Mellitus type-2; of unknown control and not on treatment with mild Hyperglycemia of 147 mg/dL present on admission - ADA diet. FSBS q. AC/HS plus lowest-intensity SSI. Check HgbA1c to objectively assess quality of diabetic control. 12. Remote history of tobacco abuse; with subsequent asthma/COPD - Stable with no evidence of flare at this time. Give nebulizers prn if symptoms develop. 13. History of acute bronchitis; attributed to Haemophilus influenza - Noted. 14. History of pulmonary hypertension - Noted. 15. History of breast cancer; s/p bilateral mastectomies (2019) now in remission - Stable. 16. History of difficulty swallowing - Stable with no complaints related to dysphagia at this time. 17. History of COVID-19 (2021) - Noted. 18. History of allergic rhinitis; on intranasal mometasone twice daily and fexofenadine nightly as needed - Maintain home regimen as previous. 19. History of LBBB - Noted. 20. History of elevated liver function tests - Noted with CMP pending. 20. History of cholecystectomy - Noted. 21. History of depression with anxiety; currently not on treatment - Stable. 22. Irritable bowel syndrome; of diarrheal-type; on as needed dicyclomine every 6 hours - Resume present management. 23. GERD; on esomeprazole - Continue PPI. 24. History of gout - Stable with no evidence of acute flare. 25. DVT prophylaxis - Heparin 5,000U sq BID plus SCD's. Total time: Approximately (but not less than) 75 minutes. Charges/Coding Visit Charges Inpatient E&M: 46789 Init Hosp L3
[2024-08-01 03:10] LABS: CPK Total, Creatine Kinase 67 U/L (26-192); Magnesium 1.3 mg/dL (1.6-2.6)
[2024-08-01] MEDS: 0.9% Normal Saline (1000mL) 1,000 ML 70 ML IV (03:27)
[2024-08-01] MEDS: CLARIFY ORDER NOTE ×2 (03:27)
[2024-08-01] MEDS: Magnesium Sulfate 2 GM in Dextrose 5%-Water (100mL Bag) 100 ML IV (06:49)
[2024-08-01 07:00] LABS: Bedside Glucose 129 mg/dL (74-106)
[2024-08-01 07:25] LABS: Absolute Lymphocyte Count 1.43 X10^3/uL (0.83-4.51); Basophil# 0.02 X10^3/uL; Basophil% 0.2 % (0-1); Eosinophil# 0.11 X10^3/uL; Hemoglobin 12.9 g/dL (12.0-15.0); Lymphocyte # 1.43 X10^3/ul (0.83-4.51); Lymphocyte % 12.6 % (19-41); Mean Corp Hgb Conc 32.3 g/dL (32-36); Mean Corpuscular Hgb 29.6 pg (27.0-32.0); Mean Corpuscular Volume 91.7 fL (81-99); Mean Platelet Vol. 9.8 fl (6.2-12.0); Monocyte# 0.79 X10^3/uL; NRBC Flagged by Analyzer 0 % (0-5); Neutrophil # 8.95 X10^3/uL (2.7-7.7); Neutrophil % 78.8 % (47-70); Platelet Count 227 K/mm3 (150-450); RBC Distribution Width CV 13.6 % (11.6-14.6); RBC Distribution Width SD 45.8 fl (35.1-43.9); Red Blood Count 4.36 M/mm3 (4.2-5.4); White Blood Count 11.4 K/mm3 (4.4-11.0)
[2024-08-01 08:19] LABS: Vitamin B12 659 pg/mL (211-911)
[2024-08-01 08:38] LABS: ALB/GLOB Ratio 0.8 RATIO (0.9-2.4); AST(SGOT) 133 U/L (15-37); Alanine Aminotransfer ALT/SGPT 124 U/L (13-56); Albumin, Serum 2.8 g/dL (3.2-5.0); Alkaline Phosphatase 216 U/L (45-117); Anion Gap 7 (5-15); BUN 13 mg/dL (7-18); BUN/Creat Ratio 17.7 RATIO (10-20); Calcium,Total 9.2 mg/dL (8.5-10.1); Chloride 105 mmol/L (98-107); Cholesterol 122 mg/dL (200); Creatinine, Serum 0.73 mg/dL (0.55-1.02); EST Glomerular Filtration Rate 80 mL/min (>60); Est Glom Filt Rate - Afr Amer 96 mL/min (>60); Estimated Creatinine Clearance 51.07 ml/min; Globulin 3.5 g/dL (2.2-4.2); Glucose 118 mg/dL (74-106); High Density Lipoprotein 59 mg/dL; Phosphorus 3.2 mg/dL (2.5-4.9); Potassium 3.9 mmol/L (3.5-5.1); Protein, Total 6.3 g/dL (6.4-8.2); Sodium Level 138 mmol/L (136-145); Triglycerides 136 mg/dL; Very Low Density Lipoprotein 27 mg/dL (5-40)
[2024-08-01 09:17] LABS: Hemoglobin A1c 6.2 % (3.8-5.6)
[2024-08-01] MEDS: Ascorbic Acid 500 MG Tablet 1000 MG PO ×2 (09:35→17:37)
[2024-08-01] MEDS: cloNIDine HCl 0.1 MG Tablet PO (09:36)
[2024-08-01] MEDS: Lactobacillis Acidophilus 1 CAP PO ×4 (09:36→21:51)
[2024-08-01] MEDS: Isosorbide DN 10 MG Tablet PO ×3 (09:36→17:37)
[2024-08-01] MEDS: Atenolol 100 MG Tablet PO (09:38)
[2024-08-01] MEDS: Cholecalciferol (Vit D3) 125 MCG CAPSULE (5,000 UNITS) PO (09:38)
[2024-08-01] MEDS: Zinc Sulfate 50 mg zinc (220 mg) ORAL capsule PO (09:38)
[2024-08-01] MEDS: Heparin Injection (Vial) 5,000 UNIT/ML VIAL 5000 UNIT SC ×2 (09:39→22:08)
[2024-08-01] MEDS: Pantoprazole Sodium 40 MG Tablet PO ×2 (09:39→21:51)
[2024-08-01] MEDS: amLODIPine 2.5 MG Tablet PO (09:39)
[2024-08-01] MEDS: Gabapentin 300 MG Capsule PO ×2 (09:42→21:51)
[2024-08-01] MEDS: Ondansetron 4 MG/2 ML Vial IV (10:00)
--- NOTE | 2024-08-01 10:08 | CASEMGMT ---
MARIANNE SIMONS Assessment: Face to Face with pt for initial transition planning/care coordination assessment. MARIANNE SIMONS introduced self and role at [facility], pt voices understanding and consents to assessment. Pt is A&O x4 and answers all questions appropriately at this time. Pt sitting up in bed in no distress. Care providers, pharmacy, and demographics verified/updated. Strata: 2 Admitting Dx: UTI occipital Headache generalized weakness PCP: Linda Specialists: Rosales, Neurologist; Trini, Aviation [employer]als[employer]; Michael, pain management Preferred Pharmacy: [facility] Insurance: [id number] Prescription Benefit: yes LNOK: Daughter, Sena; Step Daughter, Lizzy. Living Arrangements: Pt lives with in a 1 story home with 2 steps to enter. ADLs: Pt requires some assistance with ADLs and IADLs. Transportation: Pt provides transportation. DME: walker, wheelchair, portable toilet, shower bench HHC/SNF: [facility], [facility] Pt states provides assistance for her at home. RN KRISTYN discussed therapy with patient, they recommended she go somewhere for therapy services upon DC. Pt does not want to go back to [facility]. Pt states sister previously in TCU here at the hospital and she would consider going there[facility] KRISTYN/JESÚS to follow up with pt. Pt states no further concerns/needs. CM to follow. Advised pt to ask CM if any further question/concerns/needs arise, voices understanding. Pt Goal: TBD Plan: TBD, follow up with patient regarding TCU or [facility] HHC. Nandini LOPES CM
[2024-08-01] MEDS: Miconazole Nitrate Cream 1 APPLIC TOPICAL ×2 (12:13→21:52)
[2024-08-01 12:49] LABS: Bedside Glucose 140 mg/dL (74-106)
[2024-08-01] MEDS: Acetaminophen 325 MG Tablet 650 MG PO (14:38)
[2024-08-01 16:41] LABS: Bedside Glucose 114 mg/dL (74-106)
--- NOTE | 2024-08-01 17:08 | PN.HOSP_ITS ---
Reason for Visit Reason for Visit: Diagnoses Elevated white blood cell count, unspecified (08/01/24) Obesity, class 1 (08/01/24) Hypomagnesemia (08/01/24) Urinary tract infection, site not specified (08/01/24) Difficulty in walking, not elsewhere classified (08/01/24) Headache, unspecified (08/01/24) Weakness (08/01/24) Adverse effect of unspecified drugs, medicaments and biological substances, initial encounter (08/01/24) Objective Data Objective Data Vital Signs: Vital Signs Temp Pulse Resp BP Pulse Ox O2 Del Method 98.5 F 65 18 152/52 H 94 Room Air 08/01/24 09:32 08/01/24 09:32 08/01/24 09:32 08/01/24 09:32 08/01/24 09:32 08/01/24 09:49 Oxygen Delivery Method Room Air Weight: 179 lb 0.246 oz Body Mass Index (BMI) 30.7 Intake & Output: Intake and Output for Last 24 Hours 07/30/24 07/31/24 08/01/24 23:59 23:59 23:59 Intake Total 154 / 154 Balance 154 / 154 Lab / Micro Data 08/01/24 06:49 08/01/24 06:49 Labs: Laboratory Results - last 24 hr 07/31/24 00:05: Urine Color Yellow, Urine Clarity Sl. Cloudy, Urine pH 5.0, Ur Specific [place] 1.020, Urine Protein 30 H, Urine Glucose (UA) Normal, Urine Ketones Negative, Urine Occult Blood Negative, Urine Nitrite Positive H, Urine Bilirubin Negative, Urine Urobilinogen Normal, Ur Leukocyte Esterase 25 H, Urine RBC 25-50 SEEN, Urine WBC 0 SEEN, Ur Squamous Epith Cells 0-5 SEEN, Urine Bacteria 4+, Urine Mucus 2+ 07/31/24 23:44: WBC 13.0 H, RBC 4.63, Hgb 13.9, Hct 42.6, MCV 92.0, MCH 30.0, MCHC 32.6, RDW Std Deviation 45.5 H, RDW Coeff of Sravan 13.6, Plt Count 247, MPV 10.1, Immature Gran % (Auto) 0.400, Neut % (Auto) 84.9 H, Lymph % (Auto) 8.0 L, [place] % (Auto) 5.6, Eos % (Auto) 0.9, Baso % (Auto) 0.2, Absolute Neuts (auto) 11.1 H, Absolute Lymphs (auto) 1.04, Nucleated RBC % 0, Sodium 138, Potassium 4.2, Chloride 102, Carbon Dioxide 28.0, Anion Gap 7, BUN 14, Creatinine 0.85, Estim Creat Clear Calc 48.63, Est GFR (MDRD) Af Amer 82, Est GFR (MDRD) Non-Af 68, BUN/Creatinine Ratio 16.5, Glucose 147 H, Hemoglobin A1c 6.2 H, Lactic Acid 1.7, Calcium 9.4, Magnesium 1.3 L, Total Creatine Kinase 67, Troponin I High Sens 9, Folate 4.60, TSH 1.210 08/01/24 06:41: POC Glucose 129 H 08/01/24 06:49: WBC 11.4 H, RBC 4.36, Hgb 12.9, Hct 40.0, MCV 91.7, MCH 29.6, MCHC 32.3, RDW Std Deviation 45.8 H, RDW Coeff of Sravan 13.6, Plt Count 227, MPV 9.8, Immature Gran % (Auto) 0.400, Neut % (Auto) 78.8 H, Lymph % (Auto) 12.6 L, [place] % (Auto) 7.0, Eos % (Auto) 1.0, Baso % (Auto) 0.2, Absolute Neuts (auto) 9.0 H, Absolute Lymphs (auto) 1.43, Nucleated RBC % 0, Sodium 138, Potassium 3.9, Chloride 105, Carbon Dioxide 26.0, Anion Gap 7, BUN 13, Creatinine 0.73, Estim Creat Clear Calc 51.07, Est GFR (MDRD) Af Amer 96, Est GFR (MDRD) Non-Af 80, BUN/Creatinine Ratio 17.7, Glucose 118 H, Calcium 9.2, Phosphorus 3.2, Total Bilirubin 0.70, AST 133 H, ALT 124 H, Alkaline Phosphatase 216 H, Total Protein 6.3 L, Albumin 2.8 L, Globulin 3.5, Albumin/Globulin Ratio 0.8 L, Triglycerides 136, Cholesterol 122, LDL Cholesterol 36, VLDL Cholesterol 27, HDL Cholesterol 59, Vitamin B12 659 Micro: Microbiology 08/01/24 00:05 Urine, Catheterized Urine Culture - Preliminary Culture exhibits no growth. 07/31/24 23:50 Mucosa - Nose SARS-CoV-2, Influenza & RSV (PCR) - Final Radiography Diagnostic Testing: Radiology Impression Chest X-Ray 07/31/24 00:20 IMPRESSION: No radiographic evidence of acute cardiopulmonary disease. [facility] 08/01/24 00:00 IMPRESSION: 1. No CT evidence of acute intracranial pathology. 2. Age-appropriate volume loss and remote small vessel ischemic changes Reading Location: [facility] Assessment & Plan Assessment/Plan (1) Acute UTI: (2) Leukocytosis: QUALIFIERS: Leukocytosis type: unspecified Qualified Code(s): D 72.829 - Elevated white blood cell count, unspecified (3) Recurrent occipital headache: (4) Generalized weakness: (5) Ambulatory dysfunction: (6) Adverse drug reaction: QUALIFIERS: Encounter type: initial encounter Qualified Code(s): T50.905A - Adverse effect of unspecified drugs, medicaments and biological substances, initial encounter (7) Hypomagnesemia: (8) Obesity (BMI 30.0-34.9): PLAN: Plan 88-year-old female was admitted with generalized weakness, having hard time using her walker at home, standing. She also had headache, chills, body ache but no documented fever. She had brain tumor 2 to 3 years ago and received initiation 1. Most probably acute cystitis: Patient complained of burning micturition. Patient has leukocytosis, generalized weakness. UA shows positive nitrite, LE positive. WBC 0, RBC 25-50 cells. Empirically on IV ceftriaxone. 2. Occipital Headache (recurrent) with chills and lethargy unclear etiology possible due to infection/cystitis. Headache is better. CT head negative for acute pathologic changes this admission - Resume supportive care outlined above and monitor for improvement. 3. Generalized Weakness with Ambulatory Dysfunction and L4-L5 & L5-S1 laminectomy and decompression: PT and OT. 4. Hypomagnesemia of 1.3 mg/dL present on admission: IV magnesium was replaced and then started on oral. Will check magnesium tomorrow AM. Serum phosphorus normal 5. Obesity; with BMI of 31.4 6. Acute liver injury: AST and ALT and ALP are elevated. Total bilirubin 0.7. Liver chemistry was normal on 09/18/2023. She was admitted in July 2019 for metformin induced lactic acidosis complicated with hypovolemia. Monitor liver chemistry. RUQ sonogram ordered monitor liver function 7. History of cerebral convexity meningioma; s/p gamma knife treatment (~2015) - Noted with head CT negative this admission for acute pathologic findings. 8. Essential Hypertension; on amlodipine, atenolol and clonidine - Resume home regimen. 9. Hyperlipidemia; on atorvastatin - Statin will be once again be stopped due to suspected myotoxicity. Check Lipid Profile and consider alternative agent if indicated. 10. History of hypothyroidism; currently not on treatment - Check TSH. 11. Diabetes Mellitus type-2; of unknown control and not on treatment with mild Hyperglycemia of 147 mg/dL present on admission - ADA diet. FSBS q. AC/HS plus lowest-intensity SSI. Check HgbA1c to objectively assess quality of diabetic control. DVT prophylaxis - Heparin 5,000U sq BID plus SCD's. Total time: Approximately (but not less than) 75 minutes. Charges/Coding Visit Charges Inpatient E&M: 49957 Subs Hosp L2
[2024-08-01] MEDS: 0.9% Saline Lock 10 ML Syringe IV ×2 (17:38→21:53)
[2024-08-01] MEDS: MELATONIN 3 MG TABLET PO (21:51)
[2024-08-01] MEDS: Montelukast 10 MG Tablet PO (21:51)
[2024-08-01 22:30] LABS: Bedside Glucose 140 mg/dL (74-106)
[2024-08-02] VITALS (8 sets, daily range): BP systolic 148–155; BP diastolic 44–65; PULSE 51–68; RESP 16–18; TEMP 36.6–37.1; O2SAT 90–99; BMI 32.6
[2024-08-02] MEDS: 0.9% Saline Lock 10 ML Syringe IV ×2 (02:20→15:19)
--- NOTE | 2024-08-02 05:55 | US_ITS ---
PROCEDURE: ABDOMEN LIMITED REASON FOR EXAM: Elevated liver enzymes. COMPARISON: Comparison is made with prior CT scan dated August 02, 2023. FINDINGS: Liver: Diffusely echogenic suggesting fatty infiltration. Gallbladder: Surgically absent. Common bile duct: Normal measuring 6 mm.. Pancreas: Visualized portions are sonographically unremarkable. Visualized portions of the right kidney are unremarkable. Findings suggestive of a 5 mm x 5 mm x 3 mm nonobstructive right intrarenal calculus. No right upper quadrant ascites. The spleen is not enlarged. It measures 12.1 cm x 3.8 cm x 3.3 cm. US/Abdomen Limited IMPRESSION: Fatty infiltration of the liver. Status post cholecystectomy. Nonobstructive calculus in the right kidney. Spleen is unremarkable. Reading Location: [place] [id number]
[2024-08-02 06:31] LABS: Bedside Glucose 121 mg/dL (74-106)
--- NOTE | 2024-08-02 10:28 | PCM.DC ---
Discharge Instructions Diet Discharge Diet: 2000 mg Sodium Diet DC O2, CPAP, BIPAP needs Home O2 Discharge instructions: No Dressing / Incision Discharge Activity: Return to Normal Activity Weight Bearing Status: Weight bearing as tolerated Dressing / Incision Call your doctor if you observe: Fever of 101 or Higher, Coldness, Increased Pain, Numbness or Tingling, Change in Color, Inability to urinate, Inability to have a bowel movement, Shortness of breath, Dizziness, Fainting spells, Swelling in the ankles, Chest pain, Prolonged hiccupping, Increased palpitations (irregular heartbeat) and Calf discomfort Follow Up Care When: IN 2 WEEKS Test Results: Test results from this visit will be discussed in further detail at your follow-up appointment, if applicable. Discharge Plan Admission Admit Date/Time: 08/01/24 02:26 Attending Provider: Luke Pascual Primary Care Provider: Carin Mckeon Consulting Providers: Ford Yang Discharge Orders/Prescriptions Prescriptions: New miconazole nitrate 2 % Cream 1 applic topical BID 7 Days Qty: 14 0RF Protocol: *Topical Application Instructions APPLICATION INSTRUCTIONS: On the skin crease of neck Rx Instructions: Apply on the skin crease on the neck Continued cyanocobalamin (vitamin B-12) 1,000 mcg/mL kit 1,000 mcg IM QMONTH Rx Instructions: 2-27-23 1ml [id number] q 1 week for 2 weeks, then every 2 weeks for 8 weeks then once a month atorvastatin 20 mg tablet 20 mg PO DAILY atenolol 100 MG tablet 100 mg PO DAILY montelukast 10 MG tablet 10 mg PO QHS gabapentin 300 MG capsule 300 mg PO BID clonidine HCl 0.1 MG tablet 0.1 mg PO DAILY amlodipine 2.5 MG tablet 2.5 mg PO DAILY cholecalciferol (vitamin D3) 2,000 UNIT tablet,chewable 8,000 unit PO DAILY dicyclomine 10 mg capsule 10 mg PO Q6H PRN PRN (Reason: abdominal discomfort) Qty: 20 0RF mometasone 50 mcg/actuation [place],Non-Aerosol 2 spray INTRANASAL DAILY Rx Instructions: administer into each nostril isosorbide dinitrate 10 mg Tablet 10 mg PO TIDCM Qty: 0 0RF fexofenadine 180 MG tablet 180 mg PO QHS PRN (Reason: allergic rhinits) Qty: 3 0RF esomeprazole magnesium [Nexium] 40 mg capsule,delayed release(DR/EC) 40 mg PO BID Referrals / Follow Up: Carin Mckeon DO [Primary Care Provider] - Disposition Disposition (needs filled in before D/C Order can be placed): Home, Self Care
--- NOTE | 2024-08-02 10:53 | CASEMGMT ---
Social Work- SW completed referral to TCU per pt preference. TCU declined. Pt would like [facility]. RNCM updated. DIONY Salguero
[2024-08-02 11:26] LABS: Absolute Lymphocyte Count 1.36 X10^3/uL (0.83-4.51); Absolute Neutrophil Count 4.5 X10^3/uL (2.0-7.7); Basophil# 0.02 X10^3/uL; Basophil% 0.3 % (0-1); Eosinophil# 0.15 X10^3/uL; Eosinophils% 2.3 % (0-5); Hematocrit 40.2 % (37-47); Hemoglobin 12.6 g/dL (12.0-15.0); Lymphocyte # 1.36 X10^3/ul (0.83-4.51); Lymphocyte % 20.8 % (19-41); Mean Corp Hgb Conc 31.3 g/dL (32-36); Mean Corpuscular Hgb 29.6 pg (27.0-32.0); Mean Corpuscular Volume 94.4 fL (81-99); Mean Platelet Vol. 9.8 fl (6.2-12.0); Monocyte# 0.44 X10^3/uL; Monocyte% 6.7 % (0-10); NRBC Flagged by Analyzer 0 % (0-5); Neutrophil # 4.54 X10^3/uL (2.7-7.7); Neutrophil % 69.4 % (47-70); Platelet Count 184 K/mm3 (150-450); RBC Distribution Width CV 13.9 % (11.6-14.6); RBC Distribution Width SD 47.5 fl (35.1-43.9); Red Blood Count 4.26 M/mm3 (4.2-5.4); White Blood Count 6.5 K/mm3 (4.4-11.0)
[2024-08-02 11:50] LABS: ALB/GLOB Ratio 0.7 RATIO (0.9-2.4); AST(SGOT) 69 U/L (15-37); Alanine Aminotransfer ALT/SGPT 110 U/L (13-56); Albumin, Serum 2.5 g/dL (3.2-5.0); Alkaline Phosphatase 198 U/L (45-117); Anion Gap 7 (5-15); BUN 11 mg/dL (7-18); BUN/Creat Ratio 16.6 RATIO (10-20); Calcium,Total 9.6 mg/dL (8.5-10.1); Chloride 108 mmol/L (98-107); Creatinine, Serum 0.66 mg/dL (0.55-1.02); EST Glomerular Filtration Rate 89 mL/min (>60); Est Glom Filt Rate - Afr Amer 108 mL/min (>60); Estimated Creatinine Clearance 52.67 ml/min; Globulin 3.6 g/dL (2.2-4.2); Glucose 121 mg/dL (74-106); Magnesium 1.8 mg/dL (1.6-2.6); Potassium 4.4 mmol/L (3.5-5.1); Protein, Total 6.1 g/dL (6.4-8.2); Sodium Level 142 mmol/L (136-145)
[2024-08-02] MEDS: Miconazole Nitrate Cream 1 APPLIC TOPICAL (12:31)
--- NOTE | 2024-08-02 12:35 | PCM.DC.SUM ---
Providers Date of Admission: 08/01/24 Date of Discharge: 08/02/24 Primary Care Physician: Dr. Carin Mckeon DO Reason For Visit: UTI OCCIPITAL HEADACHE GENERALIZED WEAKNESS Diagnosis Discharge Diagnosis (1) Acute UTI: Status: Acute Code(s): N39.0 - Urinary tract infection, site not specified (2) Leukocytosis: Status: Acute Code(s): D72.829 - Elevated white blood cell count, unspecified Qualifiers: Leukocytosis type: unspecified Qualified Code(s): D72.829 - Elevated white blood cell count, unspecified (3) Recurrent occipital headache: Status: Acute Code(s): R51.9 - Headache, unspecified (4) Generalized weakness: Status: Acute Code(s): R53.1 - Weakness (5) Ambulatory dysfunction: Status: Acute Code(s): R26.2 - Difficulty in walking, not elsewhere classified (6) Adverse drug reaction: Status: Acute Code(s): T50.905A - Adverse effect of unspecified drugs, medicaments and biological substances, initial encounter Qualifiers: Encounter type: initial encounter Qualified Code(s): T50.905A - Adverse effect of unspecified drugs, medicaments and biological substances, initial encounter (7) Hypomagnesemia: Status: Acute Code(s): E83.42 - Hypomagnesemia (8) Obesity (BMI 30.0-34.9): Status: Acute Code(s): E66.811 - Obesity, class 1 Plan 88-year-old female was admitted with generalized weakness, having hard time using her walker at home, standing. She also had headache, chills, body ache but no documented fever. She had brain tumor 2 to 3 years ago and received initiation 1. Partially treated GNR lactose foreman or supervisor and operator UTI.: Patient complained of burning micturition. Patient has leukocytosis, generalized weakness. UA shows positive nitrite, LE positive. WBC 0, RBC 25-50 cells. Empirically on IV ceftriaxone. 08/02: Urine culture shows GNR lactose foreman or supervisor and operator, 25 2K?50 K colonies therefore most likely partially treated UTI. Patient had symptoms of dysuria therefore most likely UTI. Patient treated with 2 days of IV ceftriaxone and given prescription for 3 more days of Cipro 500 mg twice daily based on the previous urine culture. 2. Occipital Headache (recurrent) with chills and lethargy unclear etiology possible due to infection/cystitis. Headache is better. CT head negative for acute pathologic changes this admission - Resume supportive care outlined above and monitor for improvement. 08/02: Headache is resolved. 3. Generalized Weakness with Ambulatory Dysfunction and L4-L5 & L5-S1 laminectomy and decompression: PT and OT. 08/02: Patient walked and did not qualify for jail. 4. Hypomagnesemia of 1.3 mg/dL present on admission: IV magnesium was replaced and then started on oral. Will check magnesium tomorrow AM. Serum phosphorus normal 08/02: Repeat serum magnesium normal 1.8. Hypomagnesemia resolved 5. Obesity; with BMI of 31.4 6. Acute liver injury: AST and ALT and ALP are elevated. Total bilirubin 0.7. Liver chemistry was normal on 09/18/2023. She was admitted in July 2019 for metformin induced lactic acidosis complicated with hypovolemia. Monitor liver chemistry. RUQ sonogram ordered monitor liver function 7. History of cerebral convexity meningioma; s/p gamma knife treatment (~2015) - Noted with head CT negative this admission for acute pathologic findings. 8. Essential Hypertension; on amlodipine, atenolol and clonidine - Resume home regimen. 9. Hyperlipidemia; on atorvastatin - Statin will be once again be stopped due to suspected myotoxicity. Check Lipid Profile and consider alternative agent if indicated. 10. History of hypothyroidism; currently not on treatment - Check TSH. 11. Diabetes Mellitus type-2; of unknown control and not on treatment with mild Hyperglycemia of 147 mg/dL present on admission - ADA diet. FSBS q. AC/HS plus lowest-intensity SSI. Check HgbA1c to objectively assess quality of diabetic control. DVT prophylaxis - Heparin 5,000U sq BID plus SCD's. Discharge medication reconciliation done. Discharge follow-up instructions completed. Discharge process discussed with the patient and all questions were answered to patient's satisfaction. Follow with PCP in 1 to 2 weeks Total time spent, exact 35 minutes on discharge meds reconciliation, examination, coordination of care with nurses and ancillary staff, review of imaging and blood test and discussion with the patient on follow-up instructions. Medications at Discharge Home Medications atenolol 100 mg tablet 100 mg PO DAILY bp 07/10/15 montelukast 10 mg tablet 10 mg PO QHS ALLERGY 07/10/15 gabapentin 300 mg capsule 300 mg PO BID NERVE PAIN 02/16/17 amlodipine 2.5 mg tablet 2.5 mg PO DAILY BP 07/29/19 cholecalciferol (vitamin D3) 50 mcg (2,000 unit) chewable tablet 8,000 unit PO DAILY SUPPLEMENT 07/29/19 clonidine HCl 0.1 mg tablet 0.1 mg PO DAILY BP 07/29/19 dicyclomine 10 mg capsule 10 mg PO Q6H PRN PRN abdominal discomfort #20 CAPSULES 01/17/22 mometasone 50 mcg/actuation nasal spray 2 spray intranasal DAILY nasal spray 02/02/22 fexofenadine 180 mg tablet 180 mg PO QHS PRN allergic rhinits #3 tabs 02/04/22 isosorbide dinitrate 10 mg tablet 10 mg PO TIDCM heart #0 tabs 02/04/22 atorvastatin 20 mg tablet 20 mg PO DAILY hld 09/23/22 cyanocobalamin (vitamin B-12) 1,000 mcg/mL injection kit 1,000 mcg IM QMONTH 09/23/22 esomeprazole magnesium 40 mg capsule,delayed release (Nexium) 40 mg PO BID gerd 08/02/23 ciprofloxacin HCl 500 mg tablet (Cipro) 500 mg PO BID 3 days #6 tabs 08/02/24 miconazole nitrate 2 % topical cream 1 applic topical BID 1 week #14 grams 08/02/24 Physical Exam Narrative Patient is doing well. No fever or chills. Headache is resolved Seen and examined Physical exam General: Alert, Oriented x3, Cooperative HEENT: Atraumatic, PERRLA, EOMI, Normocephalic Oral: No Gingival or Mucosal Lesions/ Ulcerations Neck: Supple, No JVD, Negative Carotid Bruits Chest wall/Lungs: Air entry diminished in bilateral lung bases. No crepitation/rhonchi Cardiovascular: Regular rate, Regular Rhythm, Normal S1, Normal S2, No M/G/R Abdomen: Bowel Sounds Present, Soft, Non Tender, Non-Distended : No dysuria. No renal angle tenderness. No suprapubic tenderness. Extremities: No edema, Capillary Refill Less than 3 Seconds Skin: Mild rash over anterior skin crease of the neck. Musculoskeletal: No Tenderness to Palpation of Joints or Extremities Neurological: Cranial nerves II-XII grossly intact, DTR 2+/4. No acute focal neurological deficit. Psych/Mental Status: Normal Affect, Appropriate. Weight / BMI Weight Weight: 190 lb 4.143 oz Body Mass Index (BMI) 32.6 ABG / Lab / Microbiology Data 08/02/24 11:13 08/02/24 11:13 Laboratory: Laboratory Results - last 24 hr 08/01/24 12:09: POC Glucose 140 H 08/01/24 16:22: POC Glucose 114 H 08/01/24 22:03: POC Glucose 140 H 08/02/24 06:13: POC Glucose 121 H 08/02/24 11:13: WBC 6.5, RBC 4.26, Hgb 12.6, Hct 40.2, MCV 94.4, MCH 29.6, MCHC 31.3 L, RDW Std Deviation 47.5 H, RDW Coeff of Sravan 13.9, Plt Count 184, MPV 9.8, Immature Gran % (Auto) 0.500, Neut % (Auto) 69.4, Lymph % (Auto) 20.8, [place] % (Auto) 6.7, Eos % (Auto) 2.3, Baso % (Auto) 0.3, Absolute Neuts (auto) 4.5, Absolute Lymphs (auto) 1.36, Nucleated RBC % 0, Sodium 142, Potassium 4.4, Chloride 108 H, Carbon Dioxide 27.0, Anion Gap 7, BUN 11, Creatinine 0.66, Estim Creat Clear Calc 52.67, Est GFR (MDRD) Af Amer 108, Est GFR (MDRD) Non-Af 89, BUN/Creatinine Ratio 16.6, Glucose 121 H, Calcium 9.6, Magnesium 1.8, Total Bilirubin 0.40, AST 69 H, ALT 110 H, Alkaline Phosphatase 198 H, Total Protein 6.1 L, Albumin 2.5 L, Globulin 3.6, Albumin/Globulin Ratio 0.7 L Microbiology: Microbiology 08/01/24 00:05 Urine, Catheterized Urine Culture - Preliminary GNR lactose foreman or supervisor and operator 07/31/24 23:50 Mucosa - Nose SARS-CoV-2, Influenza & RSV (PCR) - Final D/C Instructions Discharge Diet: 2000 mg Sodium Diet Weight Bearing Status: Weight bearing as tolerated Call your doctor if you observe: Fever of 101 or Higher, Coldness, Increased Pain, Numbness or Tingling, Change in Color, Inability to urinate, Inability to have a bowel movement, Shortness of breath, Dizziness, Fainting spells, Swelling in the ankles, Chest pain, Prolonged hiccupping, Increased palpitations (irregular heartbeat) and Calf discomfort DC O2, CPAP, BIPAP Needs Home O2 Discharge instructions: No When: IN 2 WEEKS Meaningful Use Info Meaningful Use Meaningful Use Diagnoses (Choose all that apply): None applicable Ischemic Stroke Statin Dosing Therapy Reference: STATIN DOSE THERAPY REFERENCE: * Patients > 75 years receive moderate or high dose statin therapy. * Patients 75 years or YOUNGER should receive HIGH intensity statin dose unless contraindicated. You will be required to document reason for non-treatment if statin daily dose does not meet guidelines. HIGH DOSE STATIN THERAPY DAILY Atorvastatin > than or = to 40 mg Rosuvastatin > than or = to 20 mg Amlodipine + Atorvastatin > than or = to 2.5/40 mg Ezetimibe + Simvastatin 10/80 mg Simvastatin 80mg Discharge Plan Admission Admit Date/Time: 08/01/24 02:26 Attending Provider: Luke Pascual Primary Care Provider: Carin Mckeon Consulting Providers: Ford Yang Discharge Orders/Prescriptions Prescriptions: New miconazole nitrate 2 % Cream 1 applic topical BID 7 Days Qty: 14 0RF Protocol: *Topical Application Instructions APPLICATION INSTRUCTIONS: On the skin crease of neck Rx Instructions: Apply on the skin crease on the neck ciprofloxacin HCl [Cipro] 500 mg tablet 500 mg PO BID 3 Days Qty: 6 0RF Continued cyanocobalamin (vitamin B-12) 1,000 mcg/mL kit 1,000 mcg IM QMONTH Rx Instructions: 2-27-23 1ml [id number] q 1 week for 2 weeks, then every 2 weeks for 8 weeks then once a month atorvastatin 20 mg tablet 20 mg PO DAILY atenolol 100 MG tablet 100 mg PO DAILY montelukast 10 MG tablet 10 mg PO QHS gabapentin 300 MG capsule 300 mg PO BID clonidine HCl 0.1 MG tablet 0.1 mg PO DAILY amlodipine 2.5 MG tablet 2.5 mg PO DAILY cholecalciferol (vitamin D3) 2,000 UNIT tablet,chewable 8,000 unit PO DAILY dicyclomine 10 mg capsule 10 mg PO Q6H PRN PRN (Reason: abdominal discomfort) Qty: 20 0RF mometasone 50 mcg/actuation [place],Non-Aerosol 2 spray INTRANASAL DAILY Rx Instructions: administer into each nostril isosorbide dinitrate 10 mg Tablet 10 mg PO TIDCM Qty: 0 0RF fexofenadine 180 MG tablet 180 mg PO QHS PRN (Reason: allergic rhinits) Qty: 3 0RF esomeprazole magnesium [Nexium] 40 mg capsule,delayed release(DR/EC) 40 mg PO BID Referrals / Follow Up: Carin Mckeon DO [Primary Care Provider] - Disposition Disposition (needs filled in before D/C Order can be placed): Home, Self Care Charges/Coding Visit Charges Inpatient E&M: 40428 Disch Hosp >30min
--- NOTE | 2024-08-02 12:52 | CASEMGMT ---
Addendum entered by Taylor Pereyra 08/02/24 14:54: 1323-Received notification that [facility] will see pt on Thursday. MARIANNE SIMONS made pt aware of this. Original Note: MARIANNE SIMONS into pt room, pt lying in bed. Pt aware she has a dc order in. Pt states that she hasn't had her test yet. Discussed dc planning, pt states she wants to go home. She is open to [facility] coming out to see her. She denies need for a list of other options. She states she has had them in the past and felt they did not magistrate judge her and she would like them back. She is agreeable to therapy at this time. TC to Jacki at [facility], referral made.
[2024-08-02 12:54] LABS: Bedside Glucose 104 mg/dL (74-106)
[2024-08-02] MEDS: amLODIPine 2.5 MG Tablet PO (15:11)
[2024-08-02] MEDS: cloNIDine HCl 0.1 MG Tablet PO (15:11)
[2024-08-02] MEDS: Atenolol 100 MG Tablet PO (15:12)
[2024-08-02] MEDS: Lactobacillis Acidophilus 1 CAP PO (15:13)
[2024-08-02] MEDS: Ceftriaxone 1 GM/50 ML BAG IV (15:20)
--- NOTE | 2024-08-02 15:23 | PHA.DC_ITS ---
Pharmacy [facility] has performed discharge medication reconciliation and counseling for this patient. 1. CIPROFLOXACIN 500MG PO BID X 3 DAYS 2. MICONAZOLE 2% TOPICAL BID TO THE NECK X 1 WEEK The patient's discharge medication list was reviewed for discrepancies and discrepancies were resolved. The patient was counseled on the following discharge medications and changes in medications for homegoing were reviewed. The Reason for Use, instructions for use, and potential side effects were reviewed for all new medications. The patient's questions regarding all of their medications were answered. The patient was able to verbally demonstrate an understanding of their discharge medications. Medications at Discharge Home Medications atenolol 100 mg tablet 100 mg PO DAILY bp 07/10/15 montelukast 10 mg tablet 10 mg PO QHS ALLERGY 07/10/15 gabapentin 300 mg capsule 300 mg PO BID NERVE PAIN 02/16/17 amlodipine 2.5 mg tablet 2.5 mg PO DAILY BP 07/29/19 cholecalciferol (vitamin D3) 50 mcg (2,000 unit) chewable tablet 8,000 unit PO DAILY SUPPLEMENT 07/29/19 clonidine HCl 0.1 mg tablet 0.1 mg PO DAILY BP 07/29/19 dicyclomine 10 mg capsule 10 mg PO Q6H PRN PRN abdominal discomfort #20 CAPSULES 01/17/22 mometasone 50 mcg/actuation nasal spray 2 spray intranasal DAILY nasal spray 02/02/22 fexofenadine 180 mg tablet 180 mg PO QHS PRN allergic rhinits #3 tabs 02/04/22 isosorbide dinitrate 10 mg tablet 10 mg PO TIDCM heart #0 tabs 02/04/22 atorvastatin 20 mg tablet 20 mg PO DAILY hld 09/23/22 cyanocobalamin (vitamin B-12) 1,000 mcg/mL injection kit 1,000 mcg IM QMONTH 09/23/22 esomeprazole magnesium 40 mg capsule,delayed release (Nexium) 40 mg PO BID gerd 08/02/23 ciprofloxacin HCl 500 mg tablet (Cipro) 500 mg PO BID 3 days #6 tabs 08/02/24 miconazole nitrate 2 % topical cream 1 applic topical BID 1 week #14 grams 08/02/24
[2024-08-02] MEDS: Isosorbide DN 10 MG Tablet PO (16:32)
[2024-08-02] MEDS: Acetaminophen 325 MG Tablet 650 MG PO (16:32)
[2024-08-02 16:45] LABS: Bedside Glucose 134 mg/dL (74-106)
== END 2024-08-02 17:55 | disposition home or self-care (01) | DRG 690 ==
LOC: ED 08-01 02:40 → MS3 08-01 02:48
PROVIDERS: Admitting Provider Internal Medicine; Emergency Provider Emergency Medicine; PCP Internal Medicine; Visit Provider Internal Medicine
DX: N39.0 Urinary tract infection, site not specified (principal); B96.89 Other specified bacterial agents as the cause of diseases classified elsewhere; E11.65 Type 2 diabetes mellitus with hyperglycemia; E66.811 Obesity, class 1; D72.829 Elevated white blood cell count, unspecified; J44.9 Chronic obstructive pulmonary disease, unspecified; I10 Essential (primary) hypertension; K76.0 Fatty (change of) liver, not elsewhere classified; K21.9 Gastro-esophageal reflux disease without esophagitis; E78.5 Hyperlipidemia, unspecified; I44.7 Left bundle-branch block, unspecified; K58.0 Irritable bowel syndrome with diarrhea; M19.90 Unspecified osteoarthritis, unspecified site; E83.42 Hypomagnesemia; R26.2 Difficulty in walking, not elsewhere classified; R51.9 Headache, unspecified; T46.6X5A Adverse effect of antihyperlipidemic and antiarteriosclerotic drugs, initial encounter; Z85.3 Personal history of malignant neoplasm of breast; Z79.899 Other long term (current) drug therapy; Z96.652 Presence of left artificial knee joint; Z87.440 Personal history of urinary (tract) infections; Z90.49 Acquired absence of other specified parts of digestive tract; Z87.891 Personal history of nicotine dependence; Z86.011 Personal history of benign neoplasm of the brain; Z98.890 Other specified postprocedural states; Z90.13 Acquired absence of bilateral breasts and nipples; Z68.31 Body mass index [BMI] 31.0-31.9, adult; Z86.79 Personal history of other diseases of the circulatory system
CPT/HCPCS: 36415; 70450; 71045; 76705; 80048; 80053; 80061; 81001; 82550; 82607; 82746; 82962; 83036; 83605; 83735; 84100; 84443; 84484; 85025; 87040; 87077; 87086; 87088; 87186; 87631; 93005; 94668; 97162; 97166; 99285; A4216; J2405

== ENCOUNTER → 2024-12-02 | Outpatient (CLI) | payer MEDICARE, OTHER, SELFPAY ==
[2018-12-14 15:07] VITALS: BMI 33.4
--- NOTE | 2024-12-02 09:05 | RAD_ITS ---
PROCEDURE: ESOPHAGUS DUAL CONTRAST 12/02/2024 REASON FOR EXAM: DYSPHAGIA, UNSPECIFIED TECHNIQUE: ESOPHAGUS DUAL CONTRAST. 55 seconds of fluoroscopy. 5.39 mGy. COMPARISON: None FINDINGS: The patient ingested barium. Fluoroscopic imaging of the esophagus was performed. No evidence of obstruction. No mass lesion is seen. No evidence of gastroesophageal reflux. The patient was unable to swallow the 12 mm tablet the barium. RAD/Esophagus Dual Contrast IMPRESSION: Unremarkable examination. The patient was unable to swallow the 12 mm tablet of the barium. Reading Location: [place] [id number]
== END | disposition home or self-care (01) ==
LOC: RAD 08:34
PROVIDERS: PCP Internal Medicine; Referring Provider Internal Medicine Gastroenterology; Visit Provider Internal Medicine Gastroenterology
DX: R13.10 Dysphagia, unspecified (principal)
CPT/HCPCS: 74221

== ENCOUNTER → 2025-01-24 | Outpatient (CLI) | payer MEDICARE, OTHER, SELFPAY ==
[2018-12-14 15:07] VITALS: BMI 33.4
--- NOTE | 2025-01-24 14:10 | CT_ITS ---
PROCEDURE: BRAIN/HEAD WITHOUT CONTRAST 01/24/2025 REASON FOR EXAM: COGNITIVE CHANGE TECHNIQUE: BRAIN/HEAD WITHOUT CONTRAST Coronal and Sagittal reconstruction series were provided. One or more dose reduction techniques were used (e.g., Automated exposure control, adjustment of the mA and/or kV according to patient size, use of iterative reconstruction technique. RADIATION DOSE SUMMARY: CTDlvol: 45 mGy DLP: 813 mGycm COMPARISON: CT head 08/01/2024 FINDINGS: There is no extra-axial or intra-axial intracranial hemorrhage. No mass effect or midline shift is seen. Generalized intracranial volume loss and findings compatible with chronic microvascular white matter ischemia. There is normal holliday-white matter differentiation. The posterior fossa is grossly unremarkable. The skull is unremarkable. Visualized paranasal sinuses are clear. The mastoid air cells show normal translucency. CT/Brain/Head without Contrast IMPRESSION: 1. No intracranial hemorrhage. No mass effect or midline shift. 2. Chronic involutional and ischemic gliotic white matter changes. Reading Location: [facility]
== END | disposition home or self-care (01) ==
LOC: CT 14:10
PROVIDERS: PCP Internal Medicine; Referring Provider Internal Medicine; Visit Provider Internal Medicine
DX: R41.89 Other symptoms and signs involving cognitive functions and awareness (principal)
CPT/HCPCS: 70450

== ENCOUNTER → 2025-02-08 | Outpatient (CLI) | payer MEDICARE, OTHER, SELFPAY ==
[2018-12-14 15:07] VITALS: BMI 33.4
--- NOTE | 2025-02-08 15:15 | RAD_ITS ---
PROCEDURE: HUMERUS MIN 2 VIEWS 02/08/2025 REASON FOR EXAM: PAIN IN UPPER ARM BELOW SHOULDER TECHNIQUE: HUMERUS MIN 2 VIEWS Laterality: FINDINGS: No evidence of acute fracture or dislocation. The soft tissues are unremarkable. Degenerative changes of the elbow and shoulder. RAD/Humerus min 2 Views IMPRESSION: No acute osseous abnormalities. Reading Location: [id number]
--- NOTE | 2025-02-08 15:15 | RAD_ITS ---
PROCEDURE: SHOULDER MIN 2 VIEWS 02/08/2025 REASON FOR EXAM: SHOULDER PAIN FROM FALL TECHNIQUE: Four view right shoulder series. COMPARISON: Right shoulder study 12/20/2020. RAD/Shoulder min 2 Views IMPRESSION: Surgical clips over the right hemithorax are noted. Moderate degenerative changes of the spine are seen. A neurostimulator in the midthoracic spine appears unchanged in position. Stable deformity of the proximal right humerus, consistent with prior healed fr acture. Moderate right acromioclavicular joint degenerative changes are seen, with part ial joint narrowing noted. The right glenohumeral joint demonstrates mild to moderate degenerative changes , but with significant joint narrowing present. No acute fracture or dislocation is seen. If clinical concern persists, short-term follow-up imaging may be obtained to r ule out a currently occult fracture. Reading Location: [place] [id number]
--- NOTE | 2025-02-08 15:15 | RAD_ITS ---
PROCEDURE: FOREARM 2 VIEWS 02/08/2025 REASON FOR EXAM: FORARM PAIN, FALL TECHNIQUE: FOREARM 2 VIEWS Laterality: FINDINGS: No evidence of acute fracture or dislocation. Degenerative changes of the wrist and elbow. No acute soft tissue abnormalities. RAD/Forearm 2 Views IMPRESSION: No acute osseous abnormality. Reading Location: [id number]
== END | disposition home or self-care (01) ==
LOC: MTRAD 15:10
PROVIDERS: PCP Internal Medicine; Referring Provider Clinical Nurse Specialist Adult Health; Visit Provider Clinical Nurse Specialist Adult Health
DX: M25.511 Pain in right shoulder (principal); M79.621 Pain in right upper arm; M79.631 Pain in right forearm; W19.XXXA Unspecified fall, initial encounter
CPT/HCPCS: 73030; 73060; 73090

== ENCOUNTER 2025-04-01 21:33 | Emergency (ER) | payer MEDICARE, OTHER, SELFPAY ==
[2018-12-14 15:07] VITALS: BMI 33.4
[2025-04-01 21:35] VITALS: BP 139/110; PULSE 94; RESP 20; TEMP 37.4; O2SAT 92; BMI 32.1
[2025-04-01] MEDS: 0.9% Normal Saline (1000mL) 1,000 ML 999 ML IV (23:01)
[2025-04-01 23:19] LABS: Hematocrit 46.2 % (37-47); Hemoglobin 15.0 g/dL (12.0-15.0); Immature Granulocytes Count 0.040 X10^3/uL (0.0-0.0); Mean Corp Hgb Conc 32.5 g/dL (32-36); Mean Corpuscular Volume 94.7 fL (81-99); Mean Platelet Vol. 9.6 fl (6.2-12.0); NRBC Flagged by Analyzer 0 % (0-5); Platelet Count 206 K/mm3 (150-450); RBC Distribution Width CV 14.7 % (11.6-14.6); RBC Distribution Width SD 50.9 fl (35.1-43.9); Red Blood Count 4.88 M/mm3 (4.2-5.4); White Blood Count 8.0 K/mm3 (4.4-11.0)
[2025-04-01 23:34] VITALS: BP 136/48; PULSE 91; O2SAT 92
[2025-04-01] MEDS: Pantoprazole Sodium 40 MG in 0.9% Normal Saline (100mL MB+) 100 ML 300 MG IV (23:34)
[2025-04-01 23:47] LABS: Lipase 10 U/L (13-75); Magnesium 1.9 mg/dL (1.5-2.2)
[2025-04-02 00:38] LABS: AST(SGOT) 468 U/L (<=31); Alanine Aminotransfer ALT/SGPT 316 U/L (<=34); Albumin, Serum 3.5 g/dL (3.4-4.8); Alkaline Phosphatase 188 U/L (35-104); Anion Gap 13 (5-15); BUN 12 mg/dL (4-19); BUN/Creat Ratio 15.8 RATIO (10-20); Bilirubin, Direct 0.33 mg/dL (0.00-0.30); Calcium,Total 9.8 mg/dL (7.6-11.0); Carbon Dioxide 21.4 mmol/L (21.0-32.0); Chloride 101 mmol/L (98-108); Estimated Creatinine Clearance 51.24 ml/min (50-250); Globulin 3.2 g/dL (2.2-4.2); Glucose 142 mg/dL (70-99); Potassium 4.5 mmol/L (3.3-5.1)
[2025-04-02 00:46] LABS: Mucous, Urine 0 SEEN /hpf (<or=2+)
[2025-04-02 01:00] VITALS: BP 116/45; PULSE 88; RESP 16; O2SAT 91
[2025-04-02 01:05] LABS: Color, Urine Yellow (Yellow); Glucose, Dipstick Normal (Normal); Ketone-Dipstick 5 mg/dl (Negative); Leukocyte Esterase-Dipstick 25 /ul (Negative); Nitrite-Dipstick Negative (Negative); Occult Blood-Urine 10 /ul (Negative); Protein-Dipstick 30 mg/dl (Negative); Specific Gravity, Urine 1.020 (1.002-1.030)
[2025-04-02 01:11] LABS: Urine Bilirubin Dipstick 1 mg/dL (Negative)
[2025-04-02 01:16] LABS: Red Blood Cells-Urine 10-25 SEEN /hpf (0-5); Squamous Epithelial Cells - UA 0-5 SEEN /hpf (5-10)
[2025-04-02 02:44] VITALS: BP 127/34; PULSE 78; RESP 16; TEMP 37.4; O2SAT 91
== END 2025-04-02 03:24 | disposition home or self-care (01) ==
PROVIDERS: Emergency Provider Emergency Medicine; PCP Internal Medicine; Visit Provider Emergency Medicine
DX: N39.0 Urinary tract infection, site not specified (principal); J44.9 Chronic obstructive pulmonary disease, unspecified; E11.9 Type 2 diabetes mellitus without complications; R11.2 Nausea with vomiting, unspecified; K76.9 Liver disease, unspecified; E86.0 Dehydration; I10 Essential (primary) hypertension; E78.5 Hyperlipidemia, unspecified; E03.9 Hypothyroidism, unspecified; E66.9 Obesity, unspecified; K21.9 Gastro-esophageal reflux disease without esophagitis; F41.9 Anxiety disorder, unspecified; F32.A Depression, unspecified; Z85.3 Personal history of malignant neoplasm of breast; Z90.49 Acquired absence of other specified parts of digestive tract; Z79.899 Other long term (current) drug therapy; Z79.890 Hormone replacement therapy; Z87.891 Personal history of nicotine dependence
CPT/HCPCS: 74177; 80048; 80076; 81001; 83690; 83735; 85025; 87077; 87086; 87088; 87186; 87631; 96361; 96365; 96367; 96375; 99285; Q9967; A4216; J2405

== ENCOUNTER 2025-05-31 12:29 | Observation (INO) | payer MEDICARE, OTHER, SELFPAY ==
[2018-12-14 15:07] VITALS: BMI 33.4
[2025-05-31] VITALS (17 sets, daily range): BP systolic 138–157; BP diastolic 38–72; PULSE 63–83; RESP 16–18; TEMP 36.4–36.9; O2SAT 92–100; BMI 31.3; BMI 30.9
[2025-05-31 14:34] LABS: Mucous, Urine 0 SEEN /hpf (<or=2+); Red Blood Cells-Urine 0 SEEN /hpf (0-5)
[2025-05-31 14:37] LABS: Color, Urine Yellow (Yellow); Glucose, Dipstick Normal (Normal); Ketone-Dipstick Negative (Negative); Leukocyte Esterase-Dipstick Negative /ul (Negative); Nitrite-Dipstick Positive (Negative); Occult Blood-Urine Negative /ul (Negative); Protein-Dipstick Negative (Negative); Specific Gravity, Urine 1.010 (1.002-1.030); Urine Bilirubin Dipstick Negative (Negative)
--- NOTE | 2025-05-31 14:40 | RAD_ITS ---
PROCEDURE: CHEST PA AND LATERAL 05/31/2025 REASON FOR EXAM: COUGH TECHNIQUE: Procedure Code: RADCXR Modality: DX Procedure: CHEST PA AND LATERAL COMPARISON: August 01, 2024. FINDINGS: Hardware: Electrodes from a spinal cord stimulator device are seen. Heart: The heart size is normal. Mediastinum: The mediastinal contour is unremarkable. Lungs: The lungs are clear. Bones: Degenerative changes are identified within the thoracic spine. Degenerative changes of both shoulder joints. RAD/Chest PA and Lateral IMPRESSION: NO ACUTE FINDINGS. Reading Location: [id number]
[2025-05-31 14:42] LABS: Squamous Epithelial Cells - UA 0-5 SEEN /hpf (5-10)
[2025-05-31] MEDS: 0.9% Normal Saline (1000mL) 1,000 ML 1000 ML IV (15:00)
[2025-05-31 15:03] LABS: Hematocrit 43.3 % (37-47); Hemoglobin 13.9 g/dL (12.0-15.0); Immature Granulocytes Count 0.040 X10^3/uL (0.0-0.0); Mean Corp Hgb Conc 32.1 g/dL (32-36); Mean Corpuscular Volume 95.4 fL (81-99); Mean Platelet Vol. 9.6 fl (6.2-12.0); NRBC Flagged by Analyzer 0 % (0-5); Platelet Count 222 K/mm3 (150-450); RBC Distribution Width CV 13.7 % (11.6-14.6); RBC Distribution Width SD 48.7 fl (35.1-43.9); Red Blood Count 4.54 M/mm3 (4.2-5.4); White Blood Count 6.0 K/mm3 (4.4-11.0)
[2025-05-31 15:36] LABS: Anion Gap 13 (5-15); BUN 7 mg/dL (4-19); BUN/Creat Ratio 9.4 RATIO (10-20); Calcium,Total 9.5 mg/dL (7.6-11.0); Carbon Dioxide 26.0 mmol/L (21.0-32.0); Chloride 101 mmol/L (98-108); Estimated Creatinine Clearance 50.57 ml/min (50-250); Glucose 102 mg/dL (70-99); Potassium 4.4 mmol/L (3.3-5.1)
--- NOTE | 2025-05-31 15:53 | EX.ED.DYSGE1 ---
HPI History of Present Illness Chief Complaint: Nausea/Vomiting/Diarrhea Informant: patient and family Onset/Context/Timing Onset: Days Context: Gradual Onset Timing: Continuous Quality: Weakness Location: Generalized Worsened by: Nothing Relieved by: Nothing Narrative Narrative: Patient presents with generalized weakness and fatigue that has been getting worse over the past couple days. Daughter states that patient has been using a wheelchair to help get around. Patient noted a fever of 101 at home. Patient states her tested positive for COVID recently. Patient states her was recently admitted to the hospital and then transferred to an extended care facility. Patient states she tested positive at home for COVID. Patient admits to some urinary frequency and some incontinence. Patient admits to some nausea, vomiting, and diarrhea. Patient admits to a cough but denies any sputum. [facility] Medical History Former smoker Migraines TIA (transient ischemic attack) Hx: UTI (urinary tract infection) Hypokalemia Difficulty swallowing Irritable bowel Cancer Diabetes Kidney disease Asthma Breast cancer, right (~11/2018) abnormal ultrasound right breast Acute bronchitis due to Haemophilus influenzae Anxiety and depression Elevated liver enzymes GERD (gastroesophageal reflux disease) Chronic obstructive pulmonary disease (COPD) Hypothyroidism Obesity (BMI 30-39.9) HLD (hyperlipidemia) HTN (hypertension) Diabetes mellitus, type II Home Medications ?Medication ?Instructions ?Recorded ?Last Taken ?Type montelukast 10 mg tablet 10 mg PO QHS ALLERGY 07/10/15 10/02/21 History gabapentin 300 mg capsule 300 mg PO BID NERVE PAIN 02/16/17 10/02/21 History amlodipine 2.5 mg tablet 2.5 mg PO DAILY BP 07/29/19 10/02/21 History cholecalciferol (vitamin D3) 50 8,000 unit PO DAILY SUPPLEMENT 07/29/19 10/02/21 History mcg (2,000 unit) chewable tablet clonidine HCl 0.1 mg tablet 0.1 mg PO DAILY BP 07/29/19 10/02/21 History mometasone 50 mcg/actuation nasal 2 spray intranasal DAILY nasal 02/02/22 Unknown History spray spray fexofenadine 180 mg tablet 180 mg PO QHS PRN allergic rhinits 02/04/22 10/02/21 Rx #3 tabs atorvastatin 20 mg tablet 20 mg PO DAILY hld 09/23/22 Unknown History esomeprazole magnesium 40 mg 40 mg PO BID gerd 08/02/23 Unknown History capsule,delayed release (Nexium) atenolol 100 mg tablet 100 mg PO DAILY bp #30 tabs 05/25/25 Unknown Rx dicyclomine 10 mg capsule 10 mg PO Q8H PRN PRN abdominal 05/29/25 Unknown Rx discomfort #20 CAPSULES cephalexin 250 mg capsule 250 mg PO QHS 05/31/25 Unknown History cyanocobalamin (vitamin B-12) 1,000 mcg IM QMONTH 05/31/25 Unknown History 1,000 mcg/mL injection solution duloxetine 30 mg capsule,delayed 30 mg PO BID 05/31/25 Unknown History release duloxetine 60 mg capsule,delayed 60 mg PO DAILY 05/31/25 Unknown History release isosorbide dinitrate 5 mg tablet 5 mg PO TID 05/31/25 Unknown History levothyroxine 112 mcg tablet See Rx Instructions PO .COMPLEX 05/31/25 Unknown History pantoprazole 40 mg tablet,delayed 40 mg PO DAILY 05/31/25 Unknown History release Allergy/AdvReac Type Severity Reaction Status Date / Time hydrocodone bitartrate (From AdvReac Severe Other Verified 05/31/25 13:21 Vicodin) oxycodone HCl (From Percocet) AdvReac Severe Other Verified 05/31/25 13:21 tramadol AdvReac Severe Other Verified 05/31/25 13:21 atorvastatin AdvReac Unknown Other Verified 05/31/25 13:21 Family History Brother Breast cancer Kidney disease Heart disease Father Heart disease Surgical History History of cholecystectomy History of right mastectomy (~11/2018) history partial right oophorectomy Status post left partial knee replacement history laminectomy with decompression History of left mastectomy History of laparoscopic cholecystectomy Social History Smoking Status: Former smoker second hand exposure: No alcohol intake: never substance use type: does not use 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[employer] seatbelt use: always ROS ROS ED Constitutional Constitutional ED: Reports fever(s); Denies chills Eyes Eyes: Denies blurry vision or change in vision ENT ENT ED: Reports rhinorrhea and sore throat Cardiovascular Cardiovascular: Denies chest pain or palpitations Respiratory/Chest Respiratory/Chest: Reports cough; Denies dyspnea Gastrointestinal Gastrointestinal: Reports diarrhea, nausea and vomiting Genitourinary Genitourinary ED: Reports urinary frequency; Denies dysuria or hematuria Musculoskeletal Musculoskeletal: Denies back pain or neck pain Integumentary Denies abscess or rash Neurologic Neurologic: Reports weakness; Denies headache(s) Allergic/Immunologic Allergic/Immunologic ED: Denies mouth swelling or urticaria EXAM Physical Exam Const Vital Signs: 05/31/25 12:32 05/31/25 14:00 05/31/25 15:02 Temperature 97.6 F L Temperature Source Oral Pulse Rate 65 Respiratory Rate 18 Blood Pressure 152/38 H 148/43 H 138/54 H Blood Pressure Mean 76 74 79 Pulse Ox 95 100 Oxygen Delivery Method Room Air 05/31/25 15:03 05/31/25 15:15 05/31/25 15:30 Temperature Temperature Source Pulse Rate Respiratory Rate Blood Pressure 138/53 H Blood Pressure Mean 76 Pulse Ox 99 94 97 Oxygen Delivery Method 05/31/25 16:00 05/31/25 16:04 Temperature Temperature Source Pulse Rate 63 Respiratory Rate 17 Blood Pressure 148/49 H Blood Pressure Mean 79 Pulse Ox 96 97 Oxygen Delivery Method Positive well nourished and well developed General Appearance ED: well developed and NAD Neck supple and no JVD Resp normal respiratory effort and clear to auscultation bilaterally Cardio regular rate and regular rhythm GI non-tender and non-distended Palpation: soft Extremity normal to inspection General Extremety ED: Negative for edema or tenderness General Extremity: Negative for edema Neuro oriented x3, CN's II-XII intact bilaterally and no sensory deficits noted Sensorium / Orientation: alert Motor Exam: strength 5/5 throughout Psych mental status grossly normal MDM MDM MDM Narrative Medical decision making narrative: Differential diagnosis includes pneumonia, bronchitis, viral illness, electrolyte abnormality, dehydration, urinary tract infection, pyelonephritis, and general weakness. Chest x-ray will be obtained to assess for pneumonia or bronchitis. CBC will be obtained to assess for leukocytosis and anemia. Basic metabolic profile will be obtained to assess for electrolyte abnormality and renal function. Urinalysis will be obtained to assess for urinary tract infection and hematuria. COVID-19, influenza, and RSV PCR will be obtained to assess for viral illness. Lab Data Attestation: I reviewed the patient's lab results. Lab results narrative: CBC was reviewed and was within normal limits. Basic metabolic profile was reviewed and was within normal limits. Urinalysis was reviewed. There were positive nitrites but negative leukocyte esterase. There are 0-5 epithelial cells. There is no bacteria noted. Labs: Laboratory Results - last 24 hr 05/31/25 05/31/25 14:30 15:00 WBC 6.0 RBC 4.54 Hgb 13.9 Hct 43.3 MCV 95.4 MCH 30.6 MCHC 32.1 RDW Std Deviation 48.7 H RDW Coeff of Sravan 13.7 Plt Count 222 MPV 9.6 Immature Gran % (Auto) 0.700 Neut % (Auto) 68.0 Lymph % (Auto) 18.5 L [place] % (Auto) 12.1 H Eos % (Auto) 0.2 Baso % (Auto) 0.5 Absolute Neuts (auto) 4.1 Absolute Lymphs (auto) 1.11 Nucleated RBC % 0 Sodium 140 Potassium 4.4 Chloride 101 Carbon Dioxide 26.0 Anion Gap 13 BUN 7 Creatinine 0.80 Estim Creat Clear Calc 50.57 Est GFR (MDRD) Non-Af 71 BUN/Creatinine Ratio 9.4 L Glucose 102 H Calcium 9.5 Urine Color Yellow Urine Clarity Clear Urine pH 6.5 Ur Specific [place] 1.010 Urine Protein Negative Urine Glucose (UA) Normal Urine Ketones Negative Urine Occult Blood Negative Urine Nitrite Positive H Urine Bilirubin Negative Urine Urobilinogen Normal Ur Leukocyte Esterase Negative Urine RBC 0 SEEN Urine WBC 0 SEEN Ur Squamous Epith Cells 0-5 SEEN Urine Bacteria 0 SEEN Urine Mucus 0 SEEN Radiography Chest X-Ray - ED: 2 View, Read by ED Physician, Read by Radiologist and No Acute Disease Diagnostic Testing: Clinical Impression(s) from Imaging Studies Chest X-Ray 05/31/25 14:40 IMPRESSION: NO ACUTE FINDINGS. Reading Location: [id number] and lateral chest x-ray was obtained. There are 2 views. On my independent interpretation, lung melgoza are clear. There is normal cardiac silhouette. Bony thorax is normal. There is no acute process noted. Radiologist also interpreted the x-ray and agrees. Management Discussion w/another healthcare provider: Hospitalist (Dr. Curry) Treatment and Re-Evaluation :: Patient was given IV fluids. Patient was given a dose of Zofran and Tylenol. Patient states she still feels weak. Patient is concerned that about going home because she does not feel she would be able to ambulate well enough due to her weakness. Because of this, we will contact the hospitalist for admission. Case was discussed with hospitalist. He will admit the patient to his service. Patient understood and was agreeable with the plan. All questions were answered. Discharge Plan Dx/Rx/DC Orders Clinical Impression: General weakness, COVID-19, HTN (hypertension) Disposition Disposition: Acute Care Hospital [facility]
--- NOTE | 2025-05-31 16:45 | HP.PCM.HOS_ITS ---
HPI - General General Date of Admission: 05/31/25 Date of Service: 05/31/25 Chief Complaint: Fatigue, weakness and nausea with vomiting HPI Narrative KARRIE DAVID, is a 89 F who presented to [facility] ED on 05/31/2025 with fatigue, weakness and nausea/vomiting. Patient lives at home with her and uses a walker for ambulation. Her was recent diagnosed with COVID and had weakness with this and is currently in [facility]. Patient's son and daughter also were recently diagnosed with COVID. Patient has now felt more weak and fatigued for the past 2 to 3 days. She has had a few episodes of nausea with vomiting as well and has had poor p.o. intake. Was noted to have a fever of 101 at home today as well. In the ED patient was normotensive, in normal sinus rhythm, afebrile and stable on room air at rest. CBC and BMP were benign. Chest x-ray was unremarkable. COVID-positive. Given her weakness and difficulty managing at home, hospitalist was contacted for admission. I saw the patient at bedside in the ED, daughter was present. Patient was fatigued and weak appearing, was otherwise laying back in bed, answering questions with short appropriate responses and in no acute distress. She reported a mild dry cough. She denies any nausea or fever/chills currently. No other acute concerns at this time. Will be admitted for further management. [facility] Medical History Former smoker Migraines TIA (transient ischemic attack) Hx: UTI (urinary tract infection) Hypokalemia Difficulty swallowing Irritable bowel Cancer Diabetes Kidney disease Asthma Breast cancer, right (~11/2018) abnormal ultrasound right breast Acute bronchitis due to Haemophilus influenzae Anxiety and depression Elevated liver enzymes GERD (gastroesophageal reflux disease) Chronic obstructive pulmonary disease (COPD) Hypothyroidism Obesity (BMI 30-39.9) HLD (hyperlipidemia) HTN (hypertension) Diabetes mellitus, type II Home Medications ?Medication ?Instructions ?Recorded ?Last Taken ?Type montelukast 10 mg tablet 10 mg PO QHS ALLERGY 6 10/02/21 History gabapentin 300 mg capsule 300 mg PO BID NERVE PAIN 09/2910/02/21 History amlodipine 2.5 mg tablet 2.5 mg PO DAILY BP 07/29/19 10/02/21 History cholecalciferol (vitamin D3) 50 8,000 unit PO DAILY [place] PPLEMENT 07/29/19 10/02/21 History mcg (2,000 unit) chewable tablet clonidine HCl 0.1 mg tablet 0.1 mg PO DAILY BP 0 10/02/21 History mometasone 50 mcg/actuation nasal 2 spray intranasal D AILY nasal 02/02/22 Unknown History spray spray fexofenadine 180 mg tablet 180 mg PO QHS PRN allergic rhinits 02/04/22 10/02/21 Rx #3 tabs atorvastatin 20 mg tablet 20 mg PO DAILY hld 09/23/22 Unknown History esomeprazole magnesium 40 mg 40 mg PO BID gerd 4 Unknown History capsule,delayed release (Nexium) atenolol 100 mg tablet 100 mg PO DAILY bp #30 tabs 05/25/25 Unknown Rx dicyclomine 10 mg capsule 10 mg PO Q8H PRN PRN abdomin al 05/29/25 Unknown Rx discomfort #20 CAPSULES cephalexin 250 mg capsule 250 mg PO QHS 05/31/25 Unkno wn History cyanocobalamin (vitamin B-12) 1,000 mcg IM QMONTH 05/15 01/06 Unknown History 1,000 mcg/mL injection solution duloxetine 30 mg capsule,delayed 30 mg PO BID 05/31/25 Unknown History release duloxetine 60 mg capsule,delayed 60 mg PO DAILY Unknown History release isosorbide dinitrate 5 mg tablet 5 mg PO TID 05/31/25
--- NOTE | 2025-05-31 16:45 | PCM.HP.STD ---
HPI - General General Date of Admission: 05/31/25 Date of Service: 05/31/25 Chief Complaint: Fatigue, weakness and nausea with vomiting HPI Narrative KARRIE DAVID, is a 89 F who presented to [facility] ED on 05/31/2025 with fatigue, weakness and nausea/vomiting. Patient lives at home with her and uses a walker for ambulation. Her was recent diagnosed with COVID and had weakness with this and is currently in [facility]. Patient's son and daughter also were recently diagnosed with COVID. Patient has now felt more weak and fatigued for the past 2 to 3 days. She has had a few episodes of nausea with vomiting as well and has had poor p.o. intake. Was noted to have a fever of 101 at home today as well. In the ED patient was normotensive, in normal sinus rhythm, afebrile and stable on room air at rest. CBC and BMP were benign. Chest x-ray was unremarkable. COVID-positive. Given her weakness and difficulty managing at home, hospitalist was contacted for admission. I saw the patient at bedside in the ED, daughter was present. Patient was fatigued and weak appearing, was otherwise laying back in bed, answering questions with short appropriate responses and in no acute distress. She reported a mild dry cough. She denies any nausea or fever/chills currently. No other acute concerns at this time. Will be admitted for further management. [facility] Medical History Former smoker Migraines TIA (transient ischemic attack) Hx: UTI (urinary tract infection) Hypokalemia Difficulty swallowing Irritable bowel Cancer Diabetes Kidney disease Asthma Breast cancer, right (~11/2018) abnormal ultrasound right breast Acute bronchitis due to Haemophilus influenzae Anxiety and depression Elevated liver enzymes GERD (gastroesophageal reflux disease) Chronic obstructive pulmonary disease (COPD) Hypothyroidism Obesity (BMI 30-39.9) HLD (hyperlipidemia) HTN (hypertension) Diabetes mellitus, type II Home Medications ?Medication ?Instructions ?Recorded ?Last Taken ?Type montelukast 10 mg tablet 10 mg PO QHS ALLERGY 07/10/15 10/02/21 History gabapentin 300 mg capsule 300 mg PO BID NERVE PAIN 02/16/17 10/02/21 History amlodipine 2.5 mg tablet 2.5 mg PO DAILY BP 07/29/19 10/02/21 History cholecalciferol (vitamin D3) 50 8,000 unit PO DAILY SUPPLEMENT 07/29/19 10/02/21 History mcg (2,000 unit) chewable tablet clonidine HCl 0.1 mg tablet 0.1 mg PO DAILY BP 07/29/19 10/02/21 History mometasone 50 mcg/actuation nasal 2 spray intranasal DAILY nasal 02/02/22 Unknown History spray spray fexofenadine 180 mg tablet 180 mg PO QHS PRN allergic rhinits 02/04/22 10/02/21 Rx #3 tabs atorvastatin 20 mg tablet 20 mg PO DAILY hld 09/23/22 Unknown History esomeprazole magnesium 40 mg 40 mg PO BID gerd 08/02/23 Unknown History capsule,delayed release (Nexium) atenolol 100 mg tablet 100 mg PO DAILY bp #30 tabs 05/25/25 Unknown Rx dicyclomine 10 mg capsule 10 mg PO Q8H PRN PRN abdominal 05/29/25 Unknown Rx discomfort #20 CAPSULES cephalexin 250 mg capsule 250 mg PO QHS 05/31/25 Unknown History cyanocobalamin (vitamin B-12) 1,000 mcg IM QMONTH 05/31/25 Unknown History 1,000 mcg/mL injection solution duloxetine 30 mg capsule,delayed 30 mg PO BID 05/31/25 Unknown History release duloxetine 60 mg capsule,delayed 60 mg PO DAILY 05/31/25 Unknown History release isosorbide dinitrate 5 mg tablet 5 mg PO TID 05/31/25 Unknown History levothyroxine 112 mcg tablet See Rx Instructions PO .COMPLEX 05/31/25 Unknown History pantoprazole 40 mg tablet,delayed 40 mg PO DAILY 05/31/25 Unknown History release Allergy/AdvReac Type Severity Reaction Status Date / Time hydrocodone bitartrate (From AdvReac Severe Other Verified 05/31/25 13:21 Vicodin) oxycodone HCl (From Percocet) AdvReac Severe Other Verified 05/31/25 13:21 tramadol AdvReac Severe Other Verified 05/31/25 13:21 atorvastatin AdvReac Unknown Other Verified 05/31/25 13:21 Family History Brother Breast cancer Kidney disease Heart disease Father Heart disease Surgical History History of cholecystectomy History of right mastectomy (~11/2018) history partial right oophorectomy Status post left partial knee replacement history laminectomy with decompression History of left mastectomy History of laparoscopic cholecystectomy Social History Smoking Status: Former smoker second hand exposure: No alcohol intake: never substance use type: 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 What matters most to you about your health?: Being healthy, quality of life What would you like to achieve or improve as a result of your hospital stay?: Improvement in COVID symptoms and weakness Vital Signs Vital Signs Vital Signs: 05/31/25 12:32 05/31/25 14:00 05/31/25 15:02 Temperature 97.6 F L Temperature Source Oral Pulse Rate 65 Respiratory Rate 18 Blood Pressure 152/38 H 148/43 H 138/54 H Blood Pressure Mean 76 74 79 Pulse Ox 95 100 Oxygen Delivery Method Room Air 05/31/25 15:03 05/31/25 15:15 05/31/25 15:30 Temperature Temperature Source Pulse Rate Respiratory Rate Blood Pressure 138/53 H Blood Pressure Mean 76 Pulse Ox 99 94 97 Oxygen Delivery Method 05/31/25 16:00 05/31/25 16:04 Temperature Temperature Source Pulse Rate 63 Respiratory Rate 17 Blood Pressure 148/49 H Blood Pressure Mean 79 Pulse Ox 96 97 Oxygen Delivery Method Weight Weight: 82.7 kg Body Mass Index (BMI) 31.3 Physical Exam Const alert, oriented x3 and no apparent distress Constitutional Narrative: Elderly female, class I obesity, fatigued and weak appearing, otherwise laying back comfortably in bed, answering questions appropriately, in no acute distress. General Appearance: cooperative and comfortable HEENT normocephalic, head/scalp atraumatic, hearing grossly normal bilaterally, nasal mucous membranes and turbinates normal and moist oral mucous membranes Eyes PERRL, EOMs intact bilaterally and conjunctivae normal Neck full ROM Chest inspection of chest normal Resp normal respiratory effort, normal air movement, no use of accessory muscles and clear to auscultation bilaterally Cardio regular rate, regular rhythm, no murmurs and peripheral pulses 2+ throughout GI normal to inspection, nondistended, normoactive bowel sounds, soft to palpation, non-tender and non-distended Back/Spine normal ROM Extremity normal to inspection, full ROM and no pedal edema Skin no rashes or lesions noted Neuro Neuro Narrative: Generalized weakness noted. Psych mental status grossly normal Results Lab / Micro Data 05/31/25 15:00 05/31/25 15:00 Labs: Laboratory Results - last 24 hr 05/31/25 14:30: Urine Color Yellow, Urine Clarity Clear, Urine pH 6.5, Ur Specific [place] 1.010, Urine Protein Negative, Urine Glucose (UA) Normal, Urine Ketones Negative, Urine Occult Blood Negative, Urine Nitrite Positive H, Urine Bilirubin Negative, Urine Urobilinogen Normal, Ur Leukocyte Esterase Negative, Urine RBC 0 SEEN, Urine WBC 0 SEEN, Ur Squamous Epith Cells 0-5 SEEN, Urine Bacteria 0 SEEN, Urine Mucus 0 SEEN 05/31/25 15:00: WBC 6.0, RBC 4.54, Hgb 13.9, Hct 43.3, MCV 95.4, MCH 30.6, MCHC 32.1, RDW Std Deviation 48.7 H, RDW Coeff of Sravan 13.7, Plt Count 222, MPV 9.6, Immature Gran % (Auto) 0.700, Neut % (Auto) 68.0, Lymph % (Auto) 18.5 L, [place] % (Auto) 12.1 H, Eos % (Auto) 0.2, Baso % (Auto) 0.5, Absolute Neuts (auto) 4.1, Absolute Lymphs (auto) 1.11, Nucleated RBC % 0, Sodium 140, Potassium 4.4, Chloride 101, Carbon Dioxide 26.0, Anion Gap 13, BUN 7, Creatinine 0.80, Estim Creat Clear Calc 50.57, Est GFR (MDRD) Non-Af 71, BUN/Creatinine Ratio 9.4 L, Glucose 102 H, Calcium 9.5 Micro: Microbiology 05/31/25 14:30 Mucosa - Nose SARS-CoV-2, Influenza & RSV (PCR) - Final SARS-CoV-2 (COVID 19 PCR) Imaging Radiology Impression Chest X-Ray 05/31/25 14:40 IMPRESSION: NO ACUTE FINDINGS. Reading Location: [id number] Assessment & Plan Assessment/Plan (1) General weakness: (2) COVID-19: PLAN: Plan Patient is an 89-year-old female who presented to [facility] ED on 05/31/2025 with fatigue, weakness and nausea with vomiting. 1. Acute on chronic debility secondary to COVID infection ? Admit under observation status to [facility]. PT/OT/case management consulted. COVID positive in the ED. Chest x-ray negative. Afebrile stable on room air at rest. Patient typically uses a walker at home for ambulation. Lives at home with her who is at [facility] now for weakness due to COVID, so she has minimal help at home. Presume nausea with vomiting and poor p.o. intake secondary to COVID infection. Supportive care for COVID symptoms. Suspect patient will need SNF placement on discharge. Chronic medical conditions: ? Hypertension/hyperlipidemia: Normotensive to mildly hypertensive in the ED. Continue home amlodipine, atenolol, nitrate and statin. ? Hypothyroidism: Continue home Synthroid. ? Anxiety/depression: Continue home duloxetine. ? GERD: Continue home PPI. ? Type 2 diabetes mellitus with diabetic neuropathy: Last A1c 6.2% in July. Not on any home diabetes medications. Glucose 102 on admit. No need for sliding scale insulin while inpatient at this time. Continue home gabapentin. ? History of meningioma s/p gamma knife resection ? Seasonal allergies: Continue home Singulair, Yelena and Flonase. DVT prophylaxis: Lovenox CODE STATUS: Full code, verified Expected disposition: Likely SNF, 1 to 2 days Total clinical time spent by myself addressing the patient's medical issues, reviewing all the data, and collaborating with patient's care team: 62 minutes. Charges/Coding Visit Charges Inpatient E&M: 14429 Init Hosp L2
[2025-05-31] MEDS: Isosorbide DN 10 MG Tablet 5 MG PO (22:30)
[2025-05-31] MEDS: 0.9% Saline Lock 10 ML Syringe IV (22:30)
[2025-05-31] MEDS: MELATONIN 3 MG TABLET PO (22:37)
[2025-06-01] VITALS (8 sets, daily range): BP systolic 126–143; BP diastolic 41–70; PULSE 67–76; RESP 14–18; TEMP 36.2–36.7; O2SAT 84–95
[2025-06-01] MEDS: Isosorbide DN 10 MG Tablet 5 MG PO (05:12)
--- NOTE | 2025-06-01 07:22 | PN.HOSP_ITS ---
Reason for Visit Chief Complaint: Fatigue, weakness and nausea with vomiting Objective Data Objective Data Vital Signs: Vital Signs Temp Pulse Resp BP Pulse Ox O2 Del Method O2 Flow Rate 98.1 F 76 14 143/41 H 93 Room Air 2 06/01/25 05:10 06/01/25 05:10 06/01/25 05:10 06/01/25 05:10 06/01/25 05:10 06/01/25 05:17 06/01/25 05:10 Oxygen Flow Rate (L/min) 2 Oxygen Delivery Method Room Air Weight: 180 lb Body Mass Index (BMI) 30.9 Intake & Output: Intake and Output for Last 24 Hours 05/30/25 05/31/25 06/01/25 23:59 23:59 23:59 Intake Total 1480 / 1480 0 / 0 Output Total 375 / 375 150 / 150 Balance 1105 / 1105 -150 / -150 Lab / Micro Data 05/31/25 15:00 05/31/25 15:00 Labs: Laboratory Results - last 24 hr 05/31/25 14:30: Urine Color Yellow, Urine Clarity Clear, Urine pH 6.5, Ur Specific [place] 1.010, Urine Protein Negative, Urine Glucose (UA) Normal, Urine Ketones Negative, Urine Occult Blood Negative, Urine Nitrite Positive H, Urine Bilirubin Negative, Urine Urobilinogen Normal, Ur Leukocyte Esterase Negative, Urine RBC 0 SEEN, Urine WBC 0 SEEN, Ur Squamous Epith Cells 0-5 SEEN, Urine Bacteria 0 SEEN, Urine Mucus 0 SEEN 05/31/25 15:00: WBC 6.0, RBC 4.54, Hgb 13.9, Hct 43.3, MCV 95.4, MCH 30.6, MCHC 32.1, RDW Std Deviation 48.7 H, RDW Coeff of Srav[place] 13.7, Plt Count 222, MPV 9.6, Immature Gran % (Auto) 0.700, Neut % (Auto) 68.0, Lymph % (Auto) 18.5 L, [place] % (Auto) 12.1 H, Eos % (Auto) 0.2, Baso % (Auto) 0.5, Absolute Neuts (auto) 4.1, Absolute Lymphs (auto) 1.11, Nucleated RBC % 0, Sodium 140, Potassium 4.4, Chloride 101, Carbon Dioxide 26.0, Anion Gap 13, BUN 7, Creatinine 0.80, Estim Creat Clear Calc 50.57, Est GFR (MDRD) Non-Af 71, BUN/Creatinine Ratio 9.4 L, G lucose 102 H, Calcium 9.5 Micro: Microbiology 05/31/25 14:30 Mucosa - Nose SARS-CoV-2, Influenza & RSV (PCR) - Final SARS-CoV-2 (COVID 19 PCR) Radiography Diagnostic Testing: Radiology Impression Chest X-Ray 05/31/25 14:40 IMPRESSION: NO ACUTE FINDINGS. Reading Location: [id number] Patient's Goals Of Care - F/U Goal Hisotry Goal History: Patient's Goals of Care History 3 What matters most to you about Being healthy, quality of 05/31/25 17:12 your health? life What would you like to achieve Improvement in COVID 05/31/25 17:12 or improve as a result of you symptoms and weakness Assessment & Plan Assessment/Plan (1) General weakness: (2) COVID-19: PLAN: Plan Patient is an 89-year-old female who presented to [facility] ED on 05/31/2025 with fatigue, weakness and nausea with vomiting. 1. Acute on chronic debility secondary to COVID infection ? Admit under observation status to [facility]. PT/OT/case management consulted. COVID positive in the ED. Chest x-ray negative. Afebrile stable on room air at rest. Patient typically uses a walker at home for ambulation. Lives at home with her who is at [facility] now for weakness due to COVID, so she has minimal help at home. Presume nausea with vomiting and poor p.o. intake secondary to COVID infection. Supportive care for COVID symptoms. Suspect patient will need SNF placement on discharge. Chronic medical conditions: ? Hypertension/hyperlipidemia: Normotensive to mildly hypertensive in the ED. Continue home amlodipine, atenolol, nitrate and statin. ? Hypothyroidism: Continue home Synthroid. ? Anxiety/depression: Continue home duloxetine. ? GERD: Continue home PPI. ? Type 2 diabetes mellitus with diabetic neuropathy: Last A1c 6.2% in July. Not on any home diabetes medications. Glucose 102 on admit. No need for sliding scale insulin while inpatient at this time. Continue home gabapentin. ? History of meningioma s/p gamma knife resection ? Seasonal allergies: Continue home Singulair, Yelena and Flonase. DVT prophylaxis: Lovenox CODE STATUS: Full code, verified Expected disposition: Likely SNF, 1 to 2 days Total clinical time spent by myself addressing the patient's medical issues, reviewing all the data, and collaborating with patient's care team: 62 minutes.
[2025-06-01] MEDS: Fluticasone 0.05% 1 SPRAY NASAL.SRY 2 SPRAY NASAL (09:24)
[2025-06-01] MEDS: Cholecalciferol (VIT D3) 25 MCG TABLET (1,000 UNITS) 75 MCG PO (09:26)
[2025-06-01] MEDS: Cholecalciferol (Vit D3) 125 MCG CAPSULE (5,000 UNITS) PO (09:26)
--- NOTE | 2025-06-01 11:06 | PCM.TXEXTCAR ---
Diet Diet Order/Speech Therapy: INPATIENT Hospital Diet / Speech Therapy Order(s) 05/31/25 17:28 Diet: Cardiac - Heart Healthy Food consistency:: Regular Liquid Consistency:: Regular/Thin Routine Orders/Code Status Suppository Type: Dulcolax 10mg Suppository Frequency: Daily PRN DC O2, CPAP, BIPAP needs Home O2 Discharge instructions: No Therapies Extremity Affected:: Bilateral Lower Physical Therapy: Eval and Treat Occupational Therapy: Eval and Treat Speech Therapy: Eval and Treat Problem/Diagnosis (1) General weakness: Status: Acute Code(s): R53.1 - Weakness (2) COVID-19: Status: Acute Code(s): U07.1 - COVID-19 Plan Patient is an 89-year-old female who presented to [facility] ED on 05/31/2025 with fatigue, weakness and nausea with vomiting. She had subjective fever at home. Exposed to her who is a halfway with COVID-19 on past Thursday. 1. Acute on chronic debility secondary to COVID infection ? Admit under observation status to [facility]. PT/OT/case management consulted. COVID positive in the ED. Chest x-ray negative. Patient typically uses a walker at home for ambulation. Supportive care for COVID symptoms. 06/01: Patient has mild symptoms of cough and sore throat. Had subjective fever at home. The portable chest x-ray is not of good quality, rotated and reviewed as pneumonia negative for consolidation/pneumonia. Patient is not tachypneic pulse ox 94% on room air. Home oxygen colorimetry started. Discharged on Mucinex DM and incentive spirometry. Incentive spirometer. Patient does not have nausea or vomiting. Denies per nursing. Blood pressure is normal today discharge Chronic medical conditions: ? Hypertension/hyperlipidemia: Normotensive to mildly hypertensive in the ED. Continue home amlodipine, atenolol, nitrate and statin. ? Hypothyroidism: Continue home Synthroid. ? Anxiety/depression: Continue home duloxetine. ? GERD: Continue home PPI. ? Type 2 diabetes mellitus with diabetic neuropathy: Last A1c 6.2% in July. Not on any home diabetes medications. Glucose 102 on admit. No need for sliding scale insulin while inpatient at this time. Continue home gabapentin. ? History of meningioma s/p gamma knife resection ? Seasonal allergies: Continue home Singulair, Yelena and Flonase. DVT prophylaxis: Lovenox CODE STATUS: Full code, verified Discharge medication reconciliation done. Discharge follow-up instructions completed. Discharge process discussed with the patient and all questions were answered to patient's satisfaction. Follow with PCP in 1 to 2 weeks Total time spent, exact 35 minutes on discharge meds reconciliation, examination, coordination of care with nurses and ancillary staff, review of imaging and blood test and discussion with the patient on follow-up instructions. Allergies/Procedures Done in Hospital Allergies hydrocodone bitartrate (From Vicodin) Adverse Reaction (Severe, Verified 05/31/25 13:21) Other HALLUCINATIONS oxycodone HCl (From Percocet) Adverse Reaction (Severe, Verified 05/31/25 13:21) Other HALLUCINATIONS tramadol Adverse Reaction (Severe, Verified 05/31/25 13:21) Other HALLUCINATIONS atorvastatin Adverse Reaction (Unknown, Verified 05/31/25 13:21) Other Elevated liver enzymes Type of Care/Length of Stay Estimated LOS: Convalescent Care Less Than 30 days Type of Care Needed: Skilled Rehab Potential: Good Prognosis: Good Additional Orders/Day of Discharge Day of Discharge: 06/01/25 Dietary and Speech Recommendations Dietitian Recommendations/Changes: Will continue liberalized regular diet with consistency/texture as per CENTER CONSULTANT. Will continue 120mL ensure plus HP 4 times per day w/ medpass. Monitor blood glucose level and restrict dietary carbohydrate as needed. Trend weights closely and adjust ONS as needed to optimize nutrition and prevent energy/pro depletion. Discharge Plan Admission Admit Date/Time: 05/31/25 16:46 Primary Reason for Your Visit: COVID 19 infection, mild URI Attending Provider: Luke Pascual Primary Care Provider: Carin Mckeon Consulting Providers: Armando Curry Discharge Orders/Prescriptions Prescriptions: New dextromethorphan-guaifenesin [Mucinex DM] 60-1,200 mg tablet extended release 12 hr 1 tab PO Q12H 7 Days Qty: 14 0RF Continued atorvastatin 20 mg tablet 20 mg PO DAILY montelukast 10 MG tablet 10 mg PO QHS gabapentin 300 MG capsule 300 mg PO BID clonidine HCl 0.1 MG tablet 0.1 mg PO DAILY amlodipine 2.5 MG tablet 2.5 mg PO DAILY cholecalciferol (vitamin D3) 2,000 UNIT tablet,chewable 8,000 unit PO DAILY mometasone 50 mcg/actuation [place],Non-Aerosol 2 spray INTRANASAL DAILY Rx Instructions: administer into each nostril fexofenadine 180 MG tablet 180 mg PO QHS PRN (Reason: allergic rhinits) Qty: 3 0RF esomeprazole magnesium [Nexium] 40 mg capsule,delayed release(DR/EC) 40 mg PO BID pantoprazole 40 mg tablet,delayed release (DR/EC) 40 mg PO DAILY cyanocobalamin (vitamin B-12) 1,000 mcg/mL solution 1,000 mcg IM QMONTH isosorbide dinitrate 5 mg tablet 5 mg PO TID levothyroxine 112 mcg tablet See Rx Instructions PO .COMPLEX Rx Instructions: orally; TAKE 1 TABLET BY MOUTH ONCE DAILY, AND TAKE 2 TABLETS EVERY THURSDAY AND THURSDAY. duloxetine 30 mg capsule,delayed release(DR/EC) 30 mg PO BID duloxetine 60 mg capsule,delayed release(DR/EC) 60 mg PO DAILY atenolol 100 mg tablet 100 mg PO DAILY Qty: 30 0RF dicyclomine 10 mg capsule 10 mg PO Q8H PRN PRN (Reason: abdominal discomfort) Qty: 20 0RF Discontinued cephalexin 250 mg capsule 250 mg PO QHS Referrals / Follow Up: Carin Mckeon DO [Primary Care Provider, Internal Medicine] - 06/20/25 1:30 pm Disposition Disposition (needs filled in before D/C Order can be placed): Home, Self Care
--- NOTE | 2025-06-01 11:10 | DCINST_ITS ---
Discharge Instructions DC O2, CPAP, BIPAP needs Home O2 Discharge instructions: No Dressing / Incision Discharge Activity: Return to Normal Activity Weight Bearing Status: Weight bearing as tolerated Dressing / Incision Call your doctor if you observe: Fever of 101 or Higher, Coldness, Increased Pain, Numbness or Tingling, Change in Color, Inability to urinate, Inability to have a bowel movement, Shortness of breath, Dizziness, Fainting spells, Swelling in the ankles, Chest pain, Prolonged hiccupping, Increased palpitations (irregular heartbeat) and Calf discomfort Follow Up Care When: IN 2 WEEKS Test Results: Test results from this visit will be discussed in further detail at your follow- up appointment, if applicable. Discharge Plan Admission Admit Date/Time: 05/31/25 16:46 Attending Provider: Luke Pascual Primary Care Provider: Carin Mckeon Consulting Providers: Armando Curry Discharge Orders/Prescriptions Prescriptions: New dextromethorphan-guaifenesin [Mucinex DM] 60-1,200 mg tablet extended release 12 hr 1 tab PO Q12H 7 Days Qty: 14 0RF Continued atorvastatin 20 mg tablet 20 mg PO DAILY montelukast 10 MG tablet 10 mg PO QHS gabapentin 300 MG capsule 300 mg PO BID clonidine HCl 0.1 MG tablet 0.1 mg PO DAILY amlodipine 2.5 MG tablet 2.5 mg PO DAILY cholecalciferol (vitamin D3) 2,000 UNIT tablet,chewable 8,000 unit PO DAILY mometasone 50 mcg/actuation [place],Non-Aerosol 2 spray INTRANASAL DAILY Rx Instructions: administer into each nostril fexofenadine 180 MG tablet 180 mg PO QHS PRN (Reason: allergic rhinits) Qty: 3 0RF esomeprazole magnesium [Nexium] 40 mg capsule,delayed release(DR/EC) 40 mg PO BID pantoprazole 40 mg tablet,delayed release (DR/EC) 40 mg PO DAILY cyanocobalamin (vitamin B-12) 1,000 mcg/mL solution 1,000 mcg IM QMONTH isosorbide dinitrate 5 mg tablet 5 mg PO TID levothyroxine 112 mcg tablet See Rx Instructions PO .COMPLEX Rx Instructions: orally; TAKE 1 TABLET BY MOUTH ONCE DAILY, AND TAKE 2 TABLETS EVERY THURSDAY AND THURSDAY. duloxetine 30 mg capsule,delayed release(DR/EC) 30 mg PO BID duloxetine 60 mg capsule,delayed release(DR/EC) 60 mg PO DAILY atenolol 100 mg tablet 100 mg PO DAILY Qty: 30 0RF dicyclomine 10 mg capsule 10 mg PO Q8H PRN PRN (Reason: abdominal discomfort) Qty: 20 0RF Discontinued cephalexin 250 mg capsule 250 mg PO QHS Referrals / Follow Up: Carin Mckeon DO [Primary Care Provider, Internal Medicine] - Within 2 Weeks Disposition Disposition (needs filled in before D/C Order can be placed): Home, Self Care
--- NOTE | 2025-06-01 11:18 | PCM.DC.SUM ---
Providers Date of Admission: 05/31/25 Date of Discharge: 06/01/25 Primary Care Physician: Dr. Carin Mckeon, DO Reason For Visit: COVID W/ WEAKNESS Diagnosis Discharge Diagnosis (1) General weakness: Status: Acute Code(s): R53.1 - Weakness (2) COVID-19: Status: Acute Code(s): U07.1 - COVID-19 Plan Patient is an 89-year-old female who presented to [facility] ED on 05/31/2025 with fatigue, weakness and nausea with vomiting. She had subjective fever at home. Exposed to her who is a senior care with COVID-19 on past Thursday. 1. Acute on chronic debility secondary to COVID infection ? Admit under observation status to [facility]. PT/OT/case management consulted. COVID positive in the ED. Chest x-ray negative. Patient typically uses a walker at home for ambulation. Supportive care for COVID symptoms. 06/01: Patient has mild symptoms of cough and sore throat. Had subjective fever at home. The portable chest x-ray is not of good quality, rotated and reviewed as pneumonia negative for consolidation/pneumonia. Patient is not tachypneic pulse ox 94% on room air. Home oxygen colorimetry started. Discharged on Mucinex DM and incentive spirometry. Incentive spirometer. Patient does not have nausea or vomiting. Denies per nursing. Blood pressure is normal today Chronic medical conditions: ? Hypertension/hyperlipidemia: Normotensive to mildly hypertensive in the ED. Continue home amlodipine, atenolol, nitrate and statin. ? Hypothyroidism: Continue home Synthroid. ? Anxiety/depression: Continue home duloxetine. ? GERD: Continue home PPI. ? Type 2 diabetes mellitus with diabetic neuropathy: Last A1c 6.2% in July. Not on any home diabetes medications. Glucose 102 on admit. No need for sliding scale insulin while inpatient at this time. Continue home gabapentin. ? History of meningioma s/p gamma knife resection ? Seasonal allergies: Continue home Singulair, Yelena and Flonase. DVT prophylaxis: Lovenox CODE STATUS: Full code, verified Discharge medication reconciliation done. Discharge follow-up instructions completed. Discharge process discussed with the patient and all questions were answered to patient's satisfaction. Follow with PCP in 1 to 2 weeks Total time spent, exact 35 minutes on discharge meds reconciliation, examination, coordination of care with nurses and ancillary staff, review of imaging and blood test and discussion with the patient on follow-up instructions. Medications at Discharge Home Medications montelukast 10 mg tablet 10 mg PO QHS ALLERGY 07/10/15 gabapentin 300 mg capsule 300 mg PO BID NERVE PAIN 02/16/17 amlodipine 2.5 mg tablet 2.5 mg PO DAILY BP 07/29/19 cholecalciferol (vitamin D3) 50 mcg (2,000 unit) chewable tablet 8,000 unit PO DAILY SUPPLEMENT 07/29/19 clonidine HCl 0.1 mg tablet 0.1 mg PO DAILY BP 07/29/19 mometasone 50 mcg/actuation nasal spray 2 spray intranasal DAILY nasal spray 02/02/22 fexofenadine 180 mg tablet 180 mg PO QHS PRN allergic rhinits #3 tabs 02/04/22 atorvastatin 20 mg tablet 20 mg PO DAILY hld 09/23/22 esomeprazole magnesium 40 mg capsule,delayed release (Nexium) 40 mg PO BID gerd 08/02/23 atenolol 100 mg tablet 100 mg PO DAILY bp #30 tabs 05/25/25 dicyclomine 10 mg capsule 10 mg PO Q8H PRN PRN abdominal discomfort #20 CAPSULES 05/29/25 cyanocobalamin (vitamin B-12) 1,000 mcg/mL injection solution 1,000 mcg IM QMONTH 05/31/25 duloxetine 30 mg capsule,delayed release 30 mg PO BID 05/31/25 duloxetine 60 mg capsule,delayed release 60 mg PO DAILY 05/31/25 isosorbide dinitrate 5 mg tablet 5 mg PO TID 05/31/25 levothyroxine 112 mcg tablet See Rx Instructions PO .COMPLEX 05/31/25 pantoprazole 40 mg tablet,delayed release 40 mg PO DAILY 05/31/25 dextromethorphan-guaifenesin ER 60 mg-1,200 mg tab,extend release,12hr (Mucinex DM) 1 tab PO Q12H 7 days #14 tabs 06/01/25 Physical Exam Narrative Seen and examined 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 It is flexed contracture and bump over deltopectoral groove.Afebrile. Heart rate and blood pressure in normal range Physical exam general: Alert, Oriented x3, Cooperative HEENT: Atraumatic, PERRLA, EOMI, Normocephalic. Oral: No Gingival or Mucosal Lesions/ Ulcerations Neck: Supple, No JVD, Negative Carotid Bruits Chest wall/Lungs: Air entry diminished in bilateral lung bases. No crepitation/rhonchi Cardiovascular: Regular rate and rhythm, Normal S1,S2, soft systolic murmur Abdomen: Bowel Sounds Present, Soft, Non Tender, Non-Distended : No dysuria. No renal angle tenderness. No suprapubic tenderness. Extremities: No edema, Capillary Refill Less than 3 Seconds Skin: No rashes, No breakdown Musculoskeletal: Chronic weakness of right upper extremity, flexor contracture. Bony right swelling over deltopectoral groove possible chronic dislocated right humerus head. Bilateral lower extremity weakness. On wheelchair Neurological: Cranial nerves II-XII grossly intact, DTR 2+/4. No acute focal neurological deficit. Psych/Mental Status: Flat Weight / BMI Weight Weight: 180 lb Body Mass Index (BMI) 30.9 ABG / Lab / Microbiology Data 05/31/25 15:00 05/31/25 15:00 Laboratory: Laboratory Results - last 24 hr 05/31/25 14:30: Urine Color Yellow, Urine Clarity Clear, Urine pH 6.5, Ur Specific [place] 1.010, Urine Protein Negative, Urine Glucose (UA) Normal, Urine Ketones Negative, Urine Occult Blood Negative, Urine Nitrite Positive H, Urine Bilirubin Negative, Urine Urobilinogen Normal, Ur Leukocyte Esterase Negative, Urine RBC 0 SEEN, Urine WBC 0 SEEN, Ur Squamous Epith Cells 0-5 SEEN, Urine Bacteria 0 SEEN, Urine Mucus 0 SEEN 05/31/25 15:00: WBC 6.0, RBC 4.54, Hgb 13.9, Hct 43.3, MCV 95.4, MCH 30.6, MCHC 32.1, RDW Std Deviation 48.7 H, RDW Coeff of Sravan 13.7, Plt Count 222, MPV 9.6, Immature Gran % (Auto) 0.700, Neut % (Auto) 68.0, Lymph % (Auto) 18.5 L, [place] % (Auto) 12.1 H, Eos % (Auto) 0.2, Baso % (Auto) 0.5, Absolute Neuts (auto) 4.1, Absolute Lymphs (auto) 1.11, Nucleated RBC % 0, Sodium 140, Potassium 4.4, Chloride 101, Carbon Dioxide 26.0, Anion Gap 13, BUN 7, Creatinine 0.80, Estim Creat Clear Calc 50.57, Est GFR (MDRD) Non-Af 71, BUN/Creatinine Ratio 9.4 L, Glucose 102 H, Calcium 9.5 Microbiology: Microbiology 05/31/25 14:30 Mucosa - Nose SARS-CoV-2, Influenza & RSV (PCR) - Final SARS-CoV-2 (COVID 19 PCR) Radiography Diagnostic Testing: Radiology Impression Chest X-Ray 05/31/25 14:40 IMPRESSION: NO ACUTE FINDINGS. Reading Location: [facility] Instructions Weight Bearing Status: Weight bearing as tolerated Call your doctor if you observe: Fever of 101 or Higher, Coldness, Increased Pain, Numbness or Tingling, Change in Color, Inability to urinate, Inability to have a bowel movement, Shortness of breath, Dizziness, Fainting spells, Swelling in the ankles, Chest pain, Prolonged hiccupping, Increased palpitations (irregular heartbeat) and Calf discomfort DC O2, CPAP, BIPAP Needs Home O2 Discharge instructions: No When: IN 2 WEEKS Meaningful Use Info Meaningful Use Meaningful Use Diagnoses (Choose all that apply): None applicable Discharge Plan Admission Admit Date/Time: 05/31/25 16:46 Primary Reason for Your Visit: COVID 19 infection, mild URI Attending Provider: Luke Pascual Primary Care Provider: Carin Mckeon Consulting Providers: Armando Curry Discharge Orders/Prescriptions Prescriptions: New dextromethorphan-guaifenesin [Mucinex DM] 60-1,200 mg tablet extended release 12 hr 1 tab PO Q12H 7 Days Qty: 14 0RF Continued atorvastatin 20 mg tablet 20 mg PO DAILY montelukast 10 MG tablet 10 mg PO QHS gabapentin 300 MG capsule 300 mg PO BID clonidine HCl 0.1 MG tablet 0.1 mg PO DAILY amlodipine 2.5 MG tablet 2.5 mg PO DAILY cholecalciferol (vitamin D3) 2,000 UNIT tablet,chewable 8,000 unit PO DAILY mometasone 50 mcg/actuation [place],Non-Aerosol 2 spray INTRANASAL DAILY Rx Instructions: administer into each nostril fexofenadine 180 MG tablet 180 mg PO QHS PRN (Reason: allergic rhinits) Qty: 3 0RF esomeprazole magnesium [Nexium] 40 mg capsule,delayed release(DR/EC) 40 mg PO BID pantoprazole 40 mg tablet,delayed release (DR/EC) 40 mg PO DAILY cyanocobalamin (vitamin B-12) 1,000 mcg/mL solution 1,000 mcg IM QMONTH isosorbide dinitrate 5 mg tablet 5 mg PO TID levothyroxine 112 mcg tablet See Rx Instructions PO .COMPLEX Rx Instructions: orally; TAKE 1 TABLET BY MOUTH ONCE DAILY, AND TAKE 2 TABLETS EVERY THURSDAY AND THURSDAY. duloxetine 30 mg capsule,delayed release(DR/EC) 30 mg PO BID duloxetine 60 mg capsule,delayed release(DR/EC) 60 mg PO DAILY atenolol 100 mg tablet 100 mg PO DAILY Qty: 30 0RF dicyclomine 10 mg capsule 10 mg PO Q8H PRN PRN (Reason: abdominal discomfort) Qty: 20 0RF Discontinued cephalexin 250 mg capsule 250 mg PO QHS Referrals / Follow Up: Carin Mckeon DO [Primary Care Provider, Internal Medicine] - 06/20/25 1:30 pm Disposition Disposition (needs filled in before D/C Order can be placed): Home, Self Care Charges/Coding Visit Charges Inpatient E&M: 41991 Disch Hosp >30min
--- NOTE | 2025-06-01 11:26 | CASEMGMT ---
Social Work JESÚS called the daughter Sena. SW explained the patient is medically ready for DC. Sena reported her and her have Covid. She reported the patients is at [facility] and he has Covid. SW explained someone will need to stay with the patient at DC to assist with her ADL's. Sena asked if the patient can DC to a SNF and JESÚS explained the patient is not inpatient but is here only observation so Medicare will not pay for her to DC to SNF. Sena reported the is the patients caregiver. JESÚS explained the other options if family cannot stay with her is to pay for private caregivers or pay for the patient to go to a chcf. Sena stated she would call the stepdaughter Lizzy. Sena called JESÚS back and stated Lizzy is saying she cannot stay with the patient in the home. Sena stated she will call [facility] and see if the patient can come there with her . LEFTY Mcneal
--- NOTE | 2025-06-01 11:59 | CASEMGMT ---
Addendum entered by Nieves Haddad 06/01/25 12:04: JESÚS explained SW is waiting to hear back from Sena. Original Note: Social Work SW spoke with the patient. SW informed her that she is medically ready for DC. Patient asked about DC to SNF and SW explained that Medicare will not pay for it because she is not inpatient but observation she has not been here for 3 nights inpatient. SW explained SW has spoken with her daughter Sena. SW explained the options would be for someone to stay with her, paying for private caregivers or paying for a NH. LEFTY Mcneal
--- NOTE | 2025-06-01 12:02 | PHA.DC.MR.R ---
Pharmacy ID Med Reconciliation Pharmacy Service has performed discharge medication reconciliation for this patient. The patient's discharge medication list was reviewed for discrepancies and discrepancies were resolved. Medications at Discharge Home Medications montelukast 10 mg tablet 10 mg PO QHS ALLERGY 07/10/15 gabapentin 300 mg capsule 300 mg PO BID NERVE PAIN 02/16/17 amlodipine 2.5 mg tablet 2.5 mg PO DAILY BP 07/29/19 cholecalciferol (vitamin D3) 50 mcg (2,000 unit) chewable tablet 8,000 unit PO DAILY SUPPLEMENT 07/29/19 clonidine HCl 0.1 mg tablet 0.1 mg PO DAILY BP 07/29/19 mometasone 50 mcg/actuation nasal spray 2 spray intranasal DAILY nasal spray 02/02/22 fexofenadine 180 mg tablet 180 mg PO QHS PRN allergic rhinits #3 tabs 02/04/22 atorvastatin 20 mg tablet 20 mg PO DAILY hld 09/23/22 esomeprazole magnesium 40 mg capsule,delayed release (Nexium) 40 mg PO BID gerd 08/02/23 atenolol 100 mg tablet 100 mg PO DAILY bp #30 tabs 05/25/25 dicyclomine 10 mg capsule 10 mg PO Q8H PRN PRN abdominal discomfort #20 CAPSULES 05/29/25 cyanocobalamin (vitamin B-12) 1,000 mcg/mL injection solution 1,000 mcg IM QMONTH 05/31/25 duloxetine 30 mg capsule,delayed release 30 mg PO BID 05/31/25 duloxetine 60 mg capsule,delayed release 60 mg PO DAILY 05/31/25 isosorbide dinitrate 5 mg tablet 5 mg PO TID 05/31/25 levothyroxine 112 mcg tablet See Rx Instructions PO .COMPLEX 05/31/25 pantoprazole 40 mg tablet,delayed release 40 mg PO DAILY 05/31/25 dextromethorphan-guaifenesin ER 60 mg-1,200 mg tab,extend release,12hr (Mucinex DM) 1 tab PO Q12H 7 days #14 tabs 06/01/25
--- NOTE | 2025-06-01 12:15 | CASEMGMT ---
Social Work The daughter Sena called SW and asked for a referral to be sent to [facility]. informed her a referral will be sent. LEFTY Mcneal
--- NOTE | 2025-06-01 12:24 | CASEMGMT ---
Addendum entered by Kellen Lowe 06/01/25 13:14: [facility] has accepted. Original Note: Discharge Planning Referral sent via [facility] to [facility]. Kellen Lowe DC Planning Asst.
--- NOTE | 2025-06-01 13:40 | CASEMGMT ---
Social Work Patient has been accepted at [facility]. LEFTY Mcneal
--- NOTE | 2025-06-01 14:34 | CASEMGMT ---
Social Work Sena called [facility] to ask for a DC update. [facility] explained we are waiting on the physician to sign the med list and then transportation will be scheduled for the patient to DC to [facility]. [facility] explained someone will call her with the transportation time. LEFTY Mcneal
--- NOTE | 2025-06-01 14:37 | CASEMGMT ---
Social Work SW spoke with the patient and informed her that she will DC to [facility] today and that transportation will be st up for her. LEFTY Mcneal
--- NOTE | 2025-06-01 15:02 | NURSING ---
This RN called and gave report to Mesha LOPES at [facility].
--- NOTE | 2025-06-01 15:38 | CASEMGMT ---
Discharge Planning Discharge orders, signed med list, and transport time sent via [facility] to [facility]. Physicians will transport pt by wheelchair at 5:30p. Nursing, SW, pt, and her daughter (Sena) updated. Kellen Lowe DC Planning Asst.
== END 2025-06-01 19:40 | disposition skilled nursing facility (03) ==
LOC: ED 16:55 → PCU 17:05
PROVIDERS: Admitting Provider Hospitalist; Emergency Provider Emergency Medicine; PCP Internal Medicine; Visit Provider Internal Medicine
DX: U07.1 COVID-19 (principal); J44.89 Other specified chronic obstructive pulmonary disease; E11.40 Type 2 diabetes mellitus with diabetic neuropathy, unspecified; Z79.899 Other long term (current) drug therapy; F41.9 Anxiety disorder, unspecified; R53.1 Weakness; R32 Unspecified urinary incontinence; E78.5 Hyperlipidemia, unspecified; E03.9 Hypothyroidism, unspecified; J30.2 Other seasonal allergic rhinitis; Z87.891 Personal history of nicotine dependence; F32.A Depression, unspecified; I10 Essential (primary) hypertension; R35.0 Frequency of micturition; K21.9 Gastro-esophageal reflux disease without esophagitis; Z79.890 Hormone replacement therapy
CPT/HCPCS: 71046; 80048; 81001; 85025; 87631; 94668; 96361; 96372; 96374; 97162; 97166; 99221; 99285; A4216; G0378; J2405

== ENCOUNTER → 2025-06-06 05:30 | Outpatient (REF) | payer MEDICARE, OTHER, SELFPAY ==
[2018-12-14 15:07] VITALS: BMI 33.4
[2025-06-06 08:39] LABS: Hematocrit 36.5 % (37-47); Hemoglobin 12.3 g/dL (12.0-15.0); Mean Corp Hgb Conc 33.7 g/dL (32-36); Mean Corpuscular Volume 93.8 fL (81-99); Mean Platelet Vol. 10.0 fl (6.2-12.0); Platelet Count 240 K/mm3 (150-450); RBC Distribution Width CV 13.7 % (11.6-14.6); RBC Distribution Width SD 46.6 fl (35.1-43.9); Red Blood Count 3.89 M/mm3 (4.2-5.4); White Blood Count 5.2 K/mm3 (4.4-11.0)
[2025-06-06 09:10] LABS: AST(SGOT) 17 U/L (<=31); Alanine Aminotransfer ALT/SGPT 13 U/L (<=34); Albumin, Serum 3.2 g/dL (3.4-4.8); Alkaline Phosphatase 63 U/L (35-104); Anion Gap 8 (7-18); BUN 10 mg/dL (4-19); BUN/Creat Ratio 15.9 RATIO (10-20); Calcium,Total 9.3 mg/dL (7.6-11.0); Carbon Dioxide 27.9 mmol/L (20.0-29.0); Chloride 106 mmol/L (96-106); Globulin 2.6 g/dL (2.2-4.2); Glucose 103 mg/dL (70-99); Potassium 3.6 mmol/L (3.5-5.1); Vitamin D,25 Hydroxy 99.3 ng/mL (30-100)
== END ==
LOC: OLS.SW 05:30
PROVIDERS: PCP Internal Medicine; Visit Provider Internal Medicine
DX: I10 Essential (primary) hypertension (principal); M62.81 Muscle weakness (generalized); U07.1 COVID-19
CPT/HCPCS: 36415; 80053; 82306; 84443; 85027